=== PATIENT | male | born 1940 ===

== ENCOUNTER 2017-09-27 16:30 | Observation (INO) | payer MEDICARE ==
--- NOTE | 2017-09-27 17:13 | ED PDOC ---
HPI:STROKE - Time Time: 17:10 - Historian Historian: Patient, Family - Chief Complaint Chief Complaint: Numbness, Vision loss - Onset Date: 09/22/17 Time: 15:00 - Timing Timing: Improved - TPA Positive for Contraindication: Yes Reason tPA is not being Administered: onset Monday and out of window - Notes: Notes:: Pt. with right eye blurriness and left arm numbness and weakness that lasted for 15 min. Started suddenly. gave asa and he started getting better. Pt. arm got back to normal but eye is still a little bit blurry. Today they went to the database dba and he said to go to the ER. Pt. has left leg numbness for 8 years and weakness in it after a stroke 8 years ago. No chest pain, dyspnea, dizziness, headaches, abd pain. NIHSS Stroke Scale - Date/Time Evaluation Performed Date Performed: 09/27/17 Time Performed: 17:13 When Was NIHSS Performed: Baseline - How Severe is the Stroke Level of Consciousness: 0=Alert LOC to Questions: 0=Both comments correct LOC to commands: 0=Obeys both correctly Best Gaze: 0=Normal Visual: 0=No visual loss Facial: 0=Normal Motor Arm - Left: 0=No drift Motor Arm - Right: 0=No drift Motor Leg - Left: 0=No drift Motor Leg - Right: 0=No drift Limb Ataxia: 0=Absent Sensory: 0=Normal Best Language: 0=No aphasia Dysarthia: 0=Normal articulation Extinction & Inattention (Neglect): 0=Normal, no object Score: 0 rTPA Inclusion/Exclusion - Refusal of Treatment Patient Refused Treatment: No - Inclusion Criteria for Altepase Patient is 18 years or Older: Yes The Clinical Diagnosis of Ischemic Stroke That is Causing a Potentially Disabling Neurological Deficit: No Time of Onset is Well Established to be Less Than 270 Minute Before Treatment Would Begin: No Risk/Benefit Discussed With Patient/Family Member Present: No Past Medical History Reviewed: Historical Data, Nursing Documentation, Vital Signs Vital Signs: Last Vital Signs Temp 97.8 F 09/27/17 16:37 Pulse 65 09/27/17 16:37 Resp 16 09/27/17 16:37 BP 136/84 09/27/17 16:37 Pulse Ox 98 09/27/17 16:37 - Medical History PMH: CVA (leg leg numb and weak since that 8 years ago), HTN, Hyperlipidemia Denies: Chronic Kidney Disease - Family History Family History: States: Unknown Family Hx - Living Arrangements Living Arrangements: With Family - Social History Current smoker - smoking cessation education provided: No Alcohol: None Drugs: Denies - Home Medications Home Medications: Ambulatory Orders Medication Instructions Recorded Azelastine HCl [Azelastine HCl] 1 drop EACHEYE BID 09/27/17 Fluticasone/Vilanterol [Breo 1 puff IH DAILY 09/27/17 Ellipta 200-25 Mcg INH] Ibuprofen [Motrin Tab] 800 mg PO BID PRN 09/27/17 Icosapent Ethyl [Vascepa] 2 gm PO BID 09/27/17 Memantine HCl [Namenda Xr] 28 mg PO DAILY 09/27/17 Nebivolol [Bystolic] 20 mg PO DAILY 09/27/17 Sacubitril/Valsartan [Entresto 97 1 tab PO Q12H 09/27/17 mg-103 mg Tablet] Tamsulosin [Flomax] 0.4 mg PO DAILY 09/27/17 amLODIPine [Norvasc] 10 mg PO DAILY 09/27/17 - Allergies Allergies/Adverse Reactions: Allergies Allergy/AdvReac Type Severity Reaction Status Date / Time Penicillins Allergy RASH Verified 09/27/17 16:36 Review of Systems ROS Statement: Except As Marked, All Systems Reviewed And Found Negative Constitutional: Positive for: Weakness Eyes: Positive for: Vision Change Neurological: Positive for: Weakness, Numbness Physical Exam - Reviewed Nursing Documentation Reviewed: Yes Vital Signs Reviewed: Yes - Physical Exam Appears: Positive for: Non-toxic, No Acute Distress Head Exam: Positive for: ATRAUMATIC, NORMAL INSPECTION, NORMOCEPHALIC Skin: Positive for: Normal Color, Warm, DRY Eye Exam: Positive for: Normal appearance, EOMI, PERRL. Negative for: Nystagmus , Periorbital swelling, Periorbital tenderness ENT: Positive for: Normal ENT Inspection. Negative for: Nasal Congestion Neck: Positive for: Normal, Painless ROM, Supple Cardiovascular/Chest: Positive for: Regular Rate, Rhythm Respiratory: Positive for: CNT, Normal Breath Sounds Gastrointestinal/Abdominal: Positive for: Normal Exam, Bowel Sounds, Soft Back: Positive for: Normal Inspection. Negative for: L CVA Tenderness, R CVA Tenderness Extremity: Positive for: Normal ROM. 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 Negative for: Aphasia, Facial Droop - Laboratory Results Result Diagrams: 09/27/17 17:40 09/27/17 17:40 Interpretation Of Abn Labs: 1.7 cr - ECG ECG: Positive for: Interpreted By Me, Viewed By Me ECG Rhythm: Positive for: Normal QRS, Sinus Rhythm, Nonspecific Changes O2 Sat by Pulse Oximetry: 98 Pulse Ox Interpretation: Normal - Radiology X-Ray: Interpreted by Me, Viewed By Me X-Ray Interpretation: No Acute Disease - CT Scan/US head Other Rad Studies (CT/US): Read By Radiologist Other Rad Interpretation: old infarcts - Progress ED Course And Treament: 1935: Stable. Spoke with Dr. Carreon. Will admit and give further orders when pt. reaches floor. Pt. feeling better. 1939: Stable. Spoke with Dr. Gusman. Will consult. Not a thrombolytic candidate. Disposition - Clinical Impression Clinical Impression: TIA (transient ischemic attack) - Patient ED Disposition Is Patient to be Admitted: Yes Counseled Patient/Family Regarding: Studies Performed, Diagnosis - Disposition Disposition Time: 19:00 Condition: FAIR - Pt Status Changed To: Hospital Disposition Of: Observation - POA Present On Arrival: None
[2017-09-27 17:50] LABS: BASO % 0.5 % (0.0-2.0); EOS # 0.4 K/uL (0.0-0.7); EOS % 3.5 % (0.0-4.0); HEMATOCRIT 41.2 % (35.0-51.0); LYMPH # 3.9 K/uL (1.0-4.3); LYMPH % 38.5 % (20.0-40.0); MEAN CELL VOLUME 88.1 fl (80.0-94.0); MEAN CORPUSCULAR HEMOGLOBIN 28.8 pg (27.0-31.0); MEAN CORPUSCULAR HGB CONC 32.7 g/dL (33.0-37.0); MEAN PLATELET VOLUME 9.4 fl (7.2-11.7); MONO # 0.6 K/uL (0.0-0.8); MONO % 6.3 % (0.0-10.0); NEUT # 5.2 K/uL (1.8-7.0); NEUT % 51.2 % (50.0-75.0); NRBC % 0.1 % (0.0-0.0); RED CELL DISTRIBUTION WIDTH 14.4 % (11.5-14.5); WHITE BLOOD COUNT 10.2 K/uL (4.8-10.8)
[2017-09-27 17:56] LABS: ALB/GLOB RATIO 1.1 (1.0-2.1); ALKALINE PHOSPHATASE 77 U/L (38-126); ALT/SGPT 25 U/L (21-72); AST/SGOT 20 U/L (17-59); BILIRUBIN,TOTAL 0.4 mg/dl (0.2-1.3); BLOOD UREA NITROGEN 17 mg/dl (9-20); CALCIUM 8.7 mg/dL (8.4-10.2); CARBON DIOXIDE 28 mmol/L (22-30); CHLORIDE 108 mmol/L (98-107); CHOLESTEROL 208 mg/dL (0-199); GFR AFRICAN-AMERICAN 47; GLUCOSE,RANDOM 103 mg/dL (75-110); POTASSIUM 4.2 MMOL/L (3.6-5.0); SODIUM 148 mmol/l (132-148); TOTAL PROTEIN 8.1 G/DL (6.3-8.2)
--- NOTE | 2017-09-27 18:01 | CT ---
PROCEDURE: CT HEAD WITHOUT CONTRAST. HISTORY: cva eval COMPARISON: 09/06/2008 TECHNIQUE: Axial computed tomography images were obtained through the head/brain without intravenous contrast. Radiation dose: Total exam DLP = 82.82 mGy-cm. This CT exam was performed using one or more of the following dose reduction techniques: Automated exposure control, adjustment of the mA and/or kV according to patient size, and/or use of iterative reconstruction technique. FINDINGS: HEMORRHAGE: No intracranial hemorrhage. BRAIN: No mass effect or edema. No evidence of acute infarct. There is right occipital encephalomalacia and left medial occipital parietal encephalomalacia likely reflecting old ASSEMBLER FILTERS territory infarcts bilaterally. There is moderate periventricular white matter lucency with patchy foci of deep and subcortical lucency is well consistent with microvascular ischemic change. Old left basal ganglia lacunar infarcts. VENTRICLES: Unremarkable. No hydrocephalus. CALVARIUM: Unremarkable. PARANASAL SINUSES: Mild chronic pansinusitis MASTOID AIR CELLS: Unremarkable as visualized. No inflammatory changes. OTHER FINDINGS: None. IMPRESSION: No intracranial mass, hemorrhage or evidence of acute infarct. Small old bilateral ASSEMBLER FILTER[employer] territory infarcts. Chronic white matter ischemic change. Small old left basal ganglia lacunar infarcts.
[2017-09-27 18:02] LABS: PARTIAL THROMBOPLASTIN TIME 31.2 Seconds (25.6-37.1)
[2017-09-27] MEDS: Sodium Chloride 0.9% 1,000 ML IV SCH ×2 (18:04→19:21)
[2017-09-27] MEDS ORDERED: SACUBITRIL PO SCH (23:45)
[2017-09-27] MEDS ORDERED: VALSARTAN PO SCH (23:45)
[2017-09-28 00:23] VITALS: RESP 18
--- NOTE | 2017-09-28 03:43 | CP.PCM.CON ---
History of Present Illness - History of Present Illness History of Present Illness: Pt. with right eye blurriness and left arm numbness and weakness that lasted for 15 min. Started suddenly. gave asa and he started getting better. Pt. arm got back to normal but eye is still a little bit blurry. 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 Pt. has left leg numbness for 8 years and weakness in it after a stroke 8 years ago. No chest pain, dyspnea, dizziness, headaches, abd pain. NIHSS Stroke Scale - Date/Time Evaluation Performed Date Performed: 09/27/17 Time Performed: 17:13 When Was NIHSS Performed: Baseline - How Severe is the Stroke Level of Consciousness: 0=Alert LOC to Questions: 0=Both comments correct LOC to commands: 0=Obeys both correctly Best Gaze: 0=Normal Visual: 0=No visual loss Facial: 0=Normal Motor Arm - Left: 0=No drift Motor Arm - Right: 0=No drift Motor Leg - Left: 0=No drift Motor Leg - Right: 0=No drift Limb Ataxia: 0=Absent Sensory: 0=Normal Best Language: 0=No aphasia Dysarthia: 0=Normal articulation Extinction & Inattention (Neglect): 0=Normal, no object Score 0 Past Medical History Reviewed: Historical Data, Nursing Documentation, Vital Signs Vital Signs: Last Vital Signs Temp 97.8 F 09/27/17 16:37 Pulse 65 09/27/17 16:37 Resp 16 09/27/17 16:37 BP 136/84 09/27/17 16:37 Pulse Ox 98 09/27/17 16:37 - Medical History PMH: CVA (leg leg numb and weak since that 8 years ago), HTN, Hyperlipidemia, very high Triglycerides Denies: Chronic Kidney Disease, - Family History Family History: States: Unknown Family Hx - Living Arrangements Living Arrangements: With Family - Social History Current smoker - smoking cessation education provided: No Alcohol: None Drugs: Denies - Home Medications Home Medications: Ambulatory Orders Medication Instructions Recorded Azelastine HCl [Azelastine HCl] 1 drop EACHEYE BID 09/27/17 Fluticasone/Vilanterol [Breo 1 puff IH DAILY 09/27/17 Ellipta 200-25 Mcg INH] Ibuprofen [Motrin Tab] 800 mg PO BID PRN 09/27/17 Icosapent Ethyl [Vascepa] 2 gm PO BID 09/27/17 Memantine HCl [Namenda Xr] 28 mg PO DAILY 09/27/17 Nebivolol [Bystolic] 20 mg PO DAILY 09/27/17 Sacubitril/Valsartan [Entresto 97 1 tab PO Q12H 09/27/17 mg-103 mg Tablet] Tamsulosin [Flomax] 0.4 mg PO DAILY 09/27/17 amLODIPine [Norvasc] 10 mg PO DAILY 09/27/17 - Allergies Allergies/Adverse Reactions: Allergies Allergy/AdvReac Type Severity Reaction Status Date / Time Penicillins Allergy RASH Verified 09/27/17 16:36 Review of Systems ROS Statement: Except As Marked, All Systems Reviewed And Found Negative Constitutional: Positive for: Weakness Eyes: Positive for: Vision Change Neurological: Positive for: Weakness, Numbness Physical Exam - Reviewed Nursing Documentation Reviewed: Yes Vital Signs Reviewed: Yes - Physical Exam Appears: Positive for: Non-toxic, No Acute Distress Head Exam: Positive for: ATRAUMATIC, NORMAL INSPECTION, NORMOCEPHALIC Skin: Positive for: Normal Color, Warm, DRY Eye Exam: Positive for: Normal appearance, EOMI, PERRL. Negative for: Nystagmus , Periorbital swelling, Periorbital tenderness ENT: Positive for: Normal ENT Inspection. Negative for: Nasal Congestion Neck: Positive for: Normal, Painless ROM, Supple Cardiovascular/Chest: Positive for: Regular Rate, Rhythm Respiratory: Positive for: CNT, Normal Breath Sounds Gastrointestinal/Abdominal: Positive for: Normal Exam, Bowel Sounds, Soft Back: Positive for: Normal Inspection. Negative for: L CVA Tenderness, R CVA Tenderness Extremity: Positive for: Normal ROM. 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 Negative for: Aphasia, Facial Droop ECG: Positive for: Interpreted By Me, Viewed By Me ECG Rhythm: Positive for: Normal QRS, Sinus Rhythm, Nonspecific Changes O2 Sat by Pulse Oximetry: 98 Pulse Ox Interpretation: Normal - Radiology X-Ray: Interpreted by Me, Viewed By Me X-Ray Interpretation: No Acute Disease - CT Scan/US head Other Rad Studies (CT/US): Read By Radiologist Other Rad Interpretation: old infarcts Disposition - Clinical Impression Clinical Impression: TIA (transient ischemic attack) - Patient ED Disposition Is Patient to be Admitted: Yes Counseled Patient/Family Regarding: Studies Performed, Diagnosis - Disposition Disposition Time: 19:00 Condition: FAIR - Pt Status Changed To: Hospital Disposition Of: Observation - POA Present On Arrival: None Past Patient History - Past Medical History & Family History Past Medical History?: Yes - Past Social History Smoking Status: Never Smoked - CARDIAC Hx Hypertension: Yes - PULMONARY Hx Respiratory Disorders: No - NEUROLOGICAL Hx Neurological Disorder: Yes HX Cerebrovascular Accident: Yes - HEENT Hx HEENT Problems: No - RENAL Hx Chronic Kidney Disease: No - ENDOCRINE/METABOLIC Hx Endocrine Disorders: No - HEMATOLOGICAL/ONCOLOGICAL Hx Blood Disorders: No - INTEGUMENTARY Hx Dermatological Problems: No - MUSCULOSKELETAL/RHEUMATOLOGICAL Hx Falls: No - GASTROINTESTINAL Hx Gastrointestinal Disorders: No - GENITOURINARY/GYNECOLOGICAL Hx Genitourinary Disorders: No - PSYCHIATRIC Hx Substance Use: No - SURGICAL HISTORY Hx Surgeries: No - ANESTHESIA Hx Anesthesia: No Meds Allergies/Adverse Reactions: Allergies Allergy/AdvReac Type Severity Reaction Status Date / Time Penicillins Allergy RASH Verified 09/27/17 16:36 - Medications Medications: Current Medications Amlodipine Besylate (Norvasc) 10 mg PO DAILY [facility] Enoxaparin Sodium (Lovenox) 30 mg SC DAILY [facility] PRN Reason: Protocol Home Med (Azelastine Hcl [Azelastine Hcl]) 1 drop EACHEYE BID [facility] Home Med (Icosapent Ethyl [Vascepa]) 2 gm PO BID [facility] Home Med (Sacubitril/Valsartan [Entresto 97 Mg-103 Mg Tablet]) 1 tab PO Q12H [facility] Sodium Chloride (Sodium Chloride 0.9%) 1,000 mls @ 500 mls/hr IV .Q2H [facility] Last Admin: 09/27/17 19:21 Dose: Not Given Ibuprofen (Motrin Tab) 800 mg PO BID PRN PRN Reason: Pain, moderate (4-7) Influenza Virus Vaccine (Afluria (Pf)(18yr & Older)) 0.5 ml IM .ONCE ONE Stop: 09/28/17 07:01 Memantine (Namenda) 10 mg PO BID [facility] Metoprolol Tartrate (Lopressor) 100 mg PO Q12 [facility] Fluticasone/Salmeterol (Advair Diskus 250/50) 1 puff IH Q12 [facility] Tamsulosin HCl (Flomax) 0.4 mg PO DAILY [facility] Physical Exam - Neurological Exam Additional comments: Mental Status: Awake, Alert, Oriented X3 Fluent coherent speech only in Salvadorean Normal memory very pleasant to talk to He was complaining about Sensory changes in the Left UE and mild weakness in the Left LE since his old CVA on admission: Now He is almost back to his baseline Cranial Nerves II to XII: No deficits Motor: Power; Mild left LE weakness 4/5, Unable to raise the left leg at the level of the right leg normal Tone DTR 0 to 1/4 Toes are down going on both sides Sensory: No Deficits Cerebellar: Normal FNT Unable to tandem walk properly due to his old Left LE weakness Stature and Gait: mild Left hemiplegic gait Results - Vital Signs Recent Vital Signs: Last Vital Signs Temp 98.2 F 09/28/17 00:22 Pulse 59 L 09/28/17 01:46 Resp 18 09/28/17 01:46 BP 127/64 09/28/17 00:22 Pulse Ox 100 09/28/17 00:22 - Labs Result Diagrams: 09/27/17 17:40 09/27/17 17:40 Labs: Laboratory Results - last 24 hr 09/27/17 09/27/17 09/27/17 17:40 17:40 17:40 WBC 10.2 RBC 4.68 Hgb 13.5 Hct 41.2 MCV 88.1 MCH 28.8 MCHC 32.7 L RDW 14.4 Plt Count 314 MPV 9.4 Neut % (Auto) 51.2 Lymph % (Auto) 38.5 [place] % (Auto) 6.3 Eos % (Auto) 3.5 Baso % (Auto) 0.5 Neut # 5.2 Lymph # 3.9 [place] # 0.6 Eos # 0.4 Baso # 0.0 PT INR APTT Sodium 148 Potassium 4.2 Chloride 108 H Carbon Dioxide 28 Anion Gap 16 BUN 17 Creatinine 1.7 H Est GFR ( Amer) 47 Est GFR (Non-Af Amer) 39 Random Glucose 103 Hemoglobin A1c 6.3 Calcium 8.7 Total Bilirubin 0.4 AST 20 ALT 25 Alkaline Phosphatase 77 Troponin I < 0.0120 Total Protein 8.1 Albumin 4.3 Globulin 3.8 Albumin/Globulin Ratio 1.1 Triglycerides 395 H Cholesterol 208 H LDL Cholesterol Direct 104 HDL Cholesterol 26 L Blood Type Antibody Screen BBK History Checked 09/27/17 09/27/17 17:40 17:40 WBC RBC Hgb Hct MCV MCH MCHC RDW Plt Count MPV Neut % (Auto) Lymph % (Auto) [place] % (Auto) Eos % (Auto) Baso % (Auto) Neut # Lymph # [place] # Eos # Baso # PT 11.4 INR 1.0 APTT 31.2 Sodium Potassium Chloride Carbon Dioxide Anion Gap BUN Creatinine Est GFR ( Amer) Est GFR (Non-Af Amer) Random Glucose Hemoglobin A1c Calcium Total Bilirubin AST ALT Alkaline Phosphatase Troponin I Total Protein Albumin Globulin Albumin/Globulin Ratio Triglycerides Cholesterol LDL Cholesterol Direct HDL Cholesterol Blood Type O POSITIVE Antibody Screen Negative BBK History Checked Patient has bt Assessment & Plan (1) Seizures Assessment and Plan: R/O Seizures due to his old CVA that might represent a Focus for Seizures Status: Acute (2) TIA (transient ischemic attack) Status: Acute (3) BPH (benign prostatic hyperplasia) Assessment and Plan: Might cause Urinary problems, Malignancy is to be ruled out Status: Acute (4) High triglycerides Assessment and Plan: Is a major factor in CVA and in Cardiac attacks and in PVD and Atherosclerosis and dementia. Status: Acute
[2017-09-28 06:35] LABS: URIC ACID 9.7 mg/Dl (3.5-8.5)
[2017-09-28 06:58] LABS: THYROID STIMULATING HORMONE 3.86 mIU/ML (0.46-4.68)
[2017-09-28] MEDS ORDERED: Influenza Vaccine 18yr & older 0.5 ML/45 MCG SYR IM ONE (07:00)
[2017-09-28 08:22] VITALS: O2SAT 99
[2017-09-28] MEDS ORDERED: Fluticasone-Salmeterol 250-50mcg Diskus IH SCH (09:00)
[2017-09-28] MEDS ORDERED: Patient's Own Med (Azelastine Hcl [Azelastine Hcl] 1 DROP) EACHEYE SCH (09:00)
[2017-09-28] MEDS ORDERED: Patient's Own Med (Fluticasone/Vilanterol [Breo Ellipta 200-25 Mcg Inh] 1 PUFF) IH SCH (09:00)
[2017-09-28] MEDS ORDERED: Enoxaparin 30 mg Syringe SC SCH (09:00)
[2017-09-28] MEDS ORDERED: Sodium Chloride 0.9% 1,000 ML IV SCH (09:53)
--- NOTE | 2017-09-28 10:01 | RAD ---
HISTORY: cva eval COMPARISON: 06/24/2014 FINDINGS: LUNGS: No active pulmonary disease. PLEURA: No significant pleural effusion identified, no pneumothorax apparent. There is stable right paratracheal density probably related to great vessels. CARDIOVASCULAR: Heart is enlarged. Aorta is unchanged. OSSEOUS STRUCTURES: No significant abnormalities. VISUALIZED UPPER ABDOMEN: Normal. OTHER FINDINGS: None. IMPRESSION: No active disease.
--- NOTE | 2017-09-28 11:00 | CARD ---
APPROVED REPORT EKG Measurement Heart [id number] <Conclusion> Sinus bradycardia with premature atrial complexes Nonspecific ST and T wave abnormality Abnormal ECG
--- NOTE | 2017-09-28 12:04 | CP.PCM.HP ---
History of Present Illness - History of Present Illness History of Present Illness: Patient seen and examined with Dr. Carreon 77 year old male with hx of CVA in 2007 presented with complaints of blurry vision and left arm numbness. No other complaints. Feeling well this morning. Symptoms have resolved. He does not have any other complaints this morning. Family is bedside. No chest pain, dyspnea, dizziness, headaches, abd pain, nausea or vomiting. PMH: HTN, CHF, CVA Medications: reviewed Allergies: penicillins. Present on Admission - Present on Admission Any Indicators Present on Admission: No Past Patient History - Past Medical History & Family History Past Medical History?: Yes - Past Social History Smoking Status: Never Smoked - CARDIAC Hx Hypertension: Yes - PULMONARY Hx Respiratory Disorders: No - NEUROLOGICAL Hx Neurological Disorder: Yes HX Cerebrovascular Accident: Yes - HEENT Hx HEENT Problems: No - RENAL Hx Chronic Kidney Disease: No - ENDOCRINE/METABOLIC Hx Endocrine Disorders: No - HEMATOLOGICAL/ONCOLOGICAL Hx Blood Disorders: No - INTEGUMENTARY Hx Dermatological Problems: No - MUSCULOSKELETAL/RHEUMATOLOGICAL Hx Falls: No - GASTROINTESTINAL Hx Gastrointestinal Disorders: No - GENITOURINARY/GYNECOLOGICAL Hx Genitourinary Disorders: No - PSYCHIATRIC Hx Substance Use: No - SURGICAL HISTORY Hx Surgeries: No - ANESTHESIA Hx Anesthesia: No Meds Home Medications: Home Medication List Medication Instructions Recorded Confirmed Type Fluticasone/Salmeterol 250/50 1 puff IH Q12 puff 09/28/17 Rx [Advair Diskus 250/50] Memantine [Namenda] 10 mg PO BID tab 09/28/17 Rx Metoprolol Tartrate [Lopressor] 100 mg PO Q12 tab 09/28/17 Rx Allergies/Adverse Reactions: Allergies Allergy/AdvReac Type Severity Reaction Status Date / Time Penicillins Allergy RASH Verified 09/27/17 16:36 Physical Exam - Constitutional Appears: Well, No Acute Distress - Head Exam Head Exam: ATRAUMATIC, NORMAL INSPECTION, NORMOCEPHALIC - Eye Exam Eye Exam: EOMI, Normal appearance, PERRL - ENT Exam ENT Exam: Mucous Membranes Moist, Normal Exam - Respiratory Exam Respiratory Exam: Clear to Auscultation Bilateral, NORMAL BREATHING PATTERN - Cardiovascular Exam Cardiovascular Exam: REGULAR RHYTHM, +S1 - GI/Abdominal Exam GI & Abdominal Exam: Soft. absent: Distended, Guarding, Mass, Tenderness - Extremities Exam Extremities exam: Positive for: normal inspection. Negative for: pedal edema - Neurological Exam Neurological exam: Alert, CN II-XII Intact, Motor Sensory Deficit (lower extremity, not upper extremity) - Psychiatric Exam Psychiatric exam: Normal Affect, Normal Mood - Skin Skin Exam: Dry, Intact, Normal Color, Warm Results - Vital Signs Recent Vital Signs: Last Vital Signs Temp 97.7 F 09/28/17 08:21 Pulse 55 L 09/28/17 09:08 Resp 18 09/28/17 08:21 BP 152/80 H 09/28/17 09:08 Pulse Ox 99 09/28/17 08:21 - Labs Result Diagrams: 09/27/17 17:40 09/27/17 17:40 Labs: Laboratory Results - last 24 hr 09/27/17 09/27/17 09/27/17 16:55 17:40 17:40 WBC 10.2 RBC 4.68 Hgb 13.5 Hct 41.2 MCV 88.1 MCH 28.8 MCHC 32.7 L RDW 14.4 Plt Count 314 MPV 9.4 Neut % (Auto) 51.2 Lymph % (Auto) 38.5 [place] % (Auto) 6.3 Eos % (Auto) 3.5 Baso % (Auto) 0.5 Neut # 5.2 Lymph # 3.9 [place] # 0.6 Eos # 0.4 Baso # 0.0 ESR PT INR APTT Sodium 148 Potassium 4.2 Chloride 108 H Carbon Dioxide 28 Anion Gap 16 BUN 17 Creatinine 1.7 H Est GFR ( Amer) 47 Est GFR (Non-Af Amer) 39 POC Glucose (mg/dL) 137 H Random Glucose 103 Hemoglobin A1c Uric Acid Calcium 8.7 Total Bilirubin 0.4 AST 20 ALT 25 Alkaline Phosphatase 77 Troponin I < 0.0120 C-React Prot High Sens Total Protein 8.1 Albumin 4.3 Globulin 3.8 Albumin/Globulin Ratio 1.1 Triglycerides 395 H Cholesterol 208 H LDL Cholesterol Direct 104 HDL Cholesterol 26 L Prostate Specific Ag TSH 3rd Generation Blood Type Antibody Screen BBK History Checked 09/27/17 09/27/17 09/27/17 17:40 17:40 17:40 WBC RBC Hgb Hct MCV MCH MCHC RDW Plt Count MPV Neut % (Auto) Lymph % (Auto) [place] % (Auto) Eos % (Auto) Baso % (Auto) Neut # Lymph # [place] # Eos # Baso # ESR PT 11.4 INR 1.0 APTT 31.2 Sodium Potassium Chloride Carbon Dioxide Anion Gap BUN Creatinine Est GFR ( Amer) Est GFR (Non-Af Amer) POC Glucose (mg/dL) Random Glucose Hemoglobin A1c 6.3 Uric Acid Calcium Total Bilirubin AST ALT Alkaline Phosphatase Troponin I C-React Prot High Sens Total Protein Albumin Globulin Albumin/Globulin Ratio Triglycerides Cholesterol LDL Cholesterol Direct HDL Cholesterol Prostate Specific Ag TSH 3rd Generation Blood Type O POSITIVE Antibody Screen Negative BBK History Checked Patient has bt 09/28/17 09/28/17 09/28/17 05:20 05:20 05:20 WBC RBC Hgb Hct MCV MCH MCHC RDW Plt Count MPV Neut % (Auto) Lymph % (Auto) [place] % (Auto) Eos % (Auto) Baso % (Auto) Neut # Lymph # [place] # Eos # Baso # ESR 23 H PT INR APTT Sodium Potassium Chloride Carbon Dioxide Anion Gap BUN Creatinine Est GFR ( Amer) Est GFR (Non-Af Amer) POC Glucose (mg/dL) Random Glucose Hemoglobin A1c Uric Acid 9.7 H Calcium Total Bilirubin AST ALT Alkaline Phosphatase Troponin I C-React Prot High Sens Total Protein Albumin Globulin Albumin/Globulin Ratio Triglycerides Cholesterol LDL Cholesterol Direct HDL Cholesterol Prostate Specific Ag 0.168 TSH 3rd Generation 3.86 Blood Type Antibody Screen BBK History Checked 09/28/17 09/28/17 05:20 05:20 WBC RBC Hgb Hct MCV MCH MCHC RDW Plt Count MPV Neut % (Auto) Lymph % (Auto) [place] % (Auto) Eos % (Auto) Baso % (Auto) Neut # Lymph # [place] # Eos # Baso # ESR PT INR APTT Sodium Potassium Chloride Carbon Dioxide Anion Gap BUN Creatinine Est GFR ( Amer) Est GFR (Non-Af Amer) POC Glucose (mg/dL) Random Glucose Hemoglobin A1c 6.4 Uric Acid Calcium Total Bilirubin AST ALT Alkaline Phosphatase Troponin I C-React Prot High Sens 12.98 H Total Protein Albumin Globulin Albumin/Globulin Ratio Triglycerides Cholesterol LDL Cholesterol Direct HDL Cholesterol Prostate Specific Ag TSH 3rd Generation Blood Type Antibody Screen BBK History Checked Assessment & Plan (1) TIA (transient ischemic attack) Assessment and Plan: 77 year old male presented with blurry vision, left arm numbness that has resolved. Patient cleared by neuro for discharge with close follow up outpatient. Needs MRI to be done outpatient Discussed with patient and family Start ASA. Status: Acute (2) CHF (congestive heart failure) Assessment and Plan: as per hx, medications resumed, nonformulary type of chf unknown Status: Chronic (3) HTN (hypertension) Status: Chronic (4) High triglycerides Assessment and Plan: pt to follow up outpatient with pcp Status: Chronic
[2017-09-28 12:36] VITALS: BP 152/80; PULSE 55; TEMP 97.7
== END 2017-09-28 11:30 | disposition home or self-care (01) ==
LOC: H.ER 16:30 → H.ERHOLD 19:34 → H.TEL 21:25
PROVIDERS: ADMIT Family Medicine; ATTEND Family Medicine
DX: G45.9 Transient cerebral ischemic attack, unspecified (principal); E78.1 Pure hyperglyceridemia; E78.5 Hyperlipidemia, unspecified; F03.90 Unspecified dementia, unspecified severity, without behavioral disturbance, psychotic disturbance, mood disturbance, and anxiety; I73.9 Peripheral vascular disease, unspecified; H54.7 Unspecified visual loss; I11.0 Hypertensive heart disease with heart failure; I50.9 Heart failure, unspecified; N40.0 Benign prostatic hyperplasia without lower urinary tract symptoms; Z79.899 Other long term (current) drug therapy; H53.8 Other visual disturbances; I69.354 Hemiplegia and hemiparesis following cerebral infarction affecting left non-dominant side; Z23 Encounter for immunization
CPT/HCPCS: 36415; 70450; 71010; 80053; 80061; 82948; 83036; 83520; 84153; 84443; 84484; 84550; 85025; 85610; 85651; 85730; 86039; 86140; 86850; 86900; 93005; 99285; G0008; G0378; J1650; J7040; Q2035

== ENCOUNTER 2019-01-15 16:37 | Inpatient (IN) | payer MEDICARE, MEDICAID ==
--- NOTE | 2019-01-15 17:50 | RAD ---
Date of service: 01/15/2019 HISTORY: possible admission COMPARISON: 03/07/2018 FINDINGS: LUNGS: No active pulmonary disease. PLEURA: No significant pleural effusion identified, no pneumothorax apparent. CARDIOVASCULAR: No atherosclerotic calcification present No radiographic findings to suggest acute or significant cardiovascular disease. OSSEOUS STRUCTURES: No significant abnormalities. VISUALIZED UPPER ABDOMEN: Normal. OTHER FINDINGS: None. IMPRESSION: No active disease. No significant interval change compared to the prior examination(s).
[2019-01-15 18:00] LABS: BASO % 0.3 % (0.0-2.0); EOS # 0.3 K/uL (0.0-0.7); EOS % 2.4 % (0.0-4.0); HEMOGLOBIN 9.7 g/dL (12.0-18.0); LYMPH # 3.3 K/uL (1.0-4.3); LYMPH % 26.6 % (20.0-40.0); MEAN CELL VOLUME 76.9 fl (80.0-94.0); MEAN CORPUSCULAR HEMOGLOBIN 24.6 pg (27.0-31.0); MEAN CORPUSCULAR HGB CONC 31.9 g/dL (33.0-37.0); MEAN PLATELET VOLUME 8.6 fl (7.2-11.7); MONO # 0.9 K/uL (0.0-0.8); MONO % 7.4 % (0.0-10.0); NEUT # 7.8 K/uL (1.8-7.0); NEUT % 63.3 % (50.0-75.0); RBC 3.93 Mil/uL (4.40-5.90); RED CELL DISTRIBUTION WIDTH 16.8 % (11.5-14.5); WHITE BLOOD COUNT 12.3 K/uL (4.8-10.8)
[2019-01-15 18:05] LABS: INR 1.2; PROTHROMBIN TIME 13.8 Seconds (9.8-13.1)
[2019-01-15 18:08] LABS: PARTIAL THROMBOPLASTIN TIME 29.5 Seconds (25.6-37.1)
[2019-01-15 18:31] LABS: ALB/GLOB RATIO 0.9 (1.0-2.1); ALBUMIN 3.4 g/dL (3.5-5.0); CALCIUM 8.6 mg/dL (8.4-10.2)
[2019-01-15] MEDS ORDERED: Sodium Chloride 0.9% 1,000 ML IV STA (18:33)
--- NOTE | 2019-01-15 18:41 | ED PDOC ---
HPI: Abdomen Time Seen by Provider: 01/15/19 16:56 Chief Complaint (Nursing): GI Problem Chief Complaint (Provider): GI Problem History Per: Patient, Family History/Exam Limitations: no limitations Onset/Duration Of Symptoms: Days (x 1 week) Current Symptoms Are (Timing): Still Present Location Of Pain/Discomfort: RUQ, RLQ Quality Of Discomfort: "Pain" Associated Symptoms: Diarrhea, Other (distention and hematochezia). denies: Nausea, Vomiting Additional Complaint(s): 78 year old male with a history of bladder CA presents to the ED with 1 week of worsening right sided abdominal pain, distention and diarrhea as well as 2 days of rectal bleeding. Family members are present at bedside and are unable to quantify how much blood the patient excreted, but report it was "a lot". Patient's son estimates a 10-15 pound weight loss in the last week. He contiues to have right sided pain in the ED. Denies nausea, vomiting, fever and dizziness. PMD: Dr. Nam Sayed urologist: Dr. Chua Past Medical History Reviewed: Historical Data, Nursing Documentation, Vital Signs Vital Signs: Last Vital Signs Temp 98 F 01/15/19 16:46 Pulse 59 L 01/15/19 16:46 Resp 15 01/15/19 16:46 BP 117/57 L 01/15/19 16:46 Pulse Ox 99 01/15/19 16:46 - Medical History PMH: CVA (leg leg numb and weak since that 8 years ago), HTN, Hyperlipidemia, Malignancy (bladder cancer), TIA - Family History Family History: States: Unknown Family Hx - Home Medications Home Medications: Ambulatory Orders Medication Instructions Recorded Azelastine HCl 1 drop EACHEYE BID 09/27/17 Ibuprofen [Motrin Tab] 800 mg PO DAILY 09/27/17 Icosapent Ethyl [Vascepa] 2 gm PO BID 09/27/17 Memantine HCl [Namenda Xr] 28 mg PO DAILY 09/27/17 Nebivolol [Bystolic] 10 mg PO DAILY 09/27/17 Tamsulosin [Flomax] 0.4 mg PO DAILY 09/27/17 amLODIPine [Norvasc] 10 mg PO DAILY 09/27/17 Febuxostat [Uloric] 40 mg PO DAILY 08/13/18 Losartan Potassium [Cozaar] 100 mg PO DAILY 08/13/18 SITagliptin [Januvia] 25 mg PO DAILY 08/13/18 Budesonide 2 spray NS DAILY 12/19/18 Fluticasone/Salmeterol 250/50 1 puff IH DAILY 12/19/18 [Advair Diskus 250/50] Loratadine [Claritin] 10 mg PO DAILY 12/19/18 Mesalamine 4 gm RC HS 12/19/18 - Allergies Allergies/Adverse Reactions: Allergies Allergy/AdvReac Type Severity Reaction Status Date / Time Penicillins Allergy RASH Verified 01/15/19 16:41 Review of Systems ROS Statement: Except As Marked, All Systems Reviewed And Found Negative Constitutional: Positive for: Weight loss (10-15 pounds over the last week). Negative for: Fever Gastrointestinal: Positive for: Abdominal Pain (right sided), Diarrhea, Hematochezia, Other (abdominal distention). Negative for: Nausea, Vomiting Neurological: Negative for: Dizziness Physical Exam - Reviewed Nursing Documentation Reviewed: Yes Vital Signs Reviewed: Yes - Physical Exam Appears: Positive for: No Acute Distress Head Exam: Positive for: ATRAUMATIC Skin: Positive for: Normal Color, Warm, Dry. Negative for: Rash Eye Exam: Positive for: EOMI, Normal appearance, PERRL Neck: Positive for: Normal, Painless ROM, Supple Cardiovascular/Chest: Positive for: Regular Rate, Rhythm. Negative for: Murmur Respiratory: Positive for: Normal Breath Sounds. Negative for: Respiratory Distress Gastrointestinal/Abdominal: Positive for: Soft, Tenderness (tenderness to right upper and lower quadrants), Distended Rectal: Positive for: Deferred (as per patient's request) Extremity: Positive for: Normal ROM (upper and lower extremities). Negative for: Deformity, Swelling Neurological/Psych: Positive for: Awake, Alert, Normal Tone. Negative for: Motor/Sensory Deficits - Laboratory Results Result Diagrams: 01/15/19 17:56 01/15/19 17:56 Lab Results: PT 13.8 Seconds (9.8-13.1) H 01/15/19 17:56 INR 1.2 01/15/19 17:56 APTT 29.5 Seconds (25.6-37.1) 01/15/19 17:56 Total Bilirubin 0.3 mg/dl (0.2-1.3) 01/15/19 17:56 AST 19 U/L (17-59) 01/15/19 17:56 ALT 13 U/L (21-72) L D 01/15/19 17:56 Alkaline Phosphatase 67 U/L (38-126) 01/15/19 17:56 Total Protein 7.3 G/DL (6.3-8.2) 01/15/19 17:56 Albumin 3.4 g/dL (3.5-5.0) L D 01/15/19 17:56 Globulin 3.8 gm/dL (2.2-3.9) 01/15/19 17:56 Albumin/Globulin Ratio 0.9 (1.0-2.1) L 01/15/19 17:56 - ECG O2 Sat by Pulse Oximetry: 99 (RA) Pulse Ox Interpretation: Normal Medical Decision Making Medical Decision Makin:57 MDM: workup for lower GI bleed Labs, chest x-ray and CT abdomen pelvis Consult with primary doctor; probable admission 18:52 Patient will be admitted [place] [facility] [place]. Case discussed with Dr. Calvert who will see patient tomorrow. Referred patient to Dr. Mathew who will accept admission. Scribe Attestation: Documented by Lucretia Nicole, acting as a scribe for Monique Dodson MD. Provider Scribe Attestation: All medical record entries made by the Scribe were at my direction and personally dictated by me. I have reviewed the chart and agree that the record accurately reflects my personal performance of the history, physical exam, medical decision making, and the department course for this patient. I have also personally directed, reviewed, and agree with the discharge instructions and disposition. Disposition - Clinical Impression Clinical Impression: Abdominal pain, GI bleed - Patient ED Disposition Is Patient to be Admitted: Yes - Disposition Disposition Time: 18:52 Condition: GUARDED Forms: [facility] (Samoan)
--- NOTE | 2019-01-16 07:29 | CP.PCM.HP ---
<Damian Soria - Last Filed: 01/16/19 10:46> History of Present Illness - History of Present Illness History of Present Illness: Kb: Miah [id number] This is 78 y/o male with PMH of Ulcerative colitis, HTN, Bladder Ca, Dementia, prediabetes and CVA in 2007 admitted to [facility] for evaluation and treatment of chronic bloody diarrhea and acute R abdominal pain with distension. Patient is a poor historian, no family at bedside present. Patient reports he has been having blood diarrhea, BRBPR since few months and worsening R abdominal pain/distension for couple of days. Denies any vomiting, chest pain, SOB, or dysuria. Patient reports weight loss in last few months. Doesn't know if he follows up with any GI doctor as outpatient. PMD: Dr. Nam Sayed urologist: Dr. Chua PMH: Ulcerative colitis, Hypotension, Bladder Ca, Dementia, prediabetes and CVA in 2007 PSH: Denies Allg: PNC SH: Denies alcohol, smoking or drug use SH: unknown Present on Admission - Present on Admission Any Indicators Present on Admission: No Past Patient History - Past Medical History & Family History Past Medical History?: Yes - Past Social History Smoking Status: Never Smoked - CARDIAC Hx Cardiac Disorders: Yes - NEUROLOGICAL Hx Neurological Disorder: Yes - HEENT Hx HEENT Problems: No - ENDOCRINE/METABOLIC Hx Endocrine Disorders: Yes Hx Diabetes Mellitus Type 2: Yes - HEMATOLOGICAL/ONCOLOGICAL Hx Blood Disorders: Yes Hx Cancer: Yes (BLADDER CANCER) - MUSCULOSKELETAL/RHEUMATOLOGICAL Hx Musculoskeletal Disorders: Yes Hx Gout: Yes - GASTROINTESTINAL Hx Gastrointestinal Disorders: Yes Hx Colitis: Yes Hx Gastroesophageal Reflux: Yes - GENITOURINARY/GYNECOLOGICAL Hx Genitourinary Disorders: Yes Hx Bladder Cancer: Yes Hx Hematuria: Yes Other/Comment: HX: URINARY FREQUENCY - PSYCHIATRIC Hx Psychophysiologic Disorder: No Hx Substance Use: No - SURGICAL HISTORY Hx Surgeries: Yes Other/Comment: HX: BLADDER CANCER TURBT. HX: NEPHROURETERECTOMY 2014. HX: CY STOSCOPY WITH BLADDER BIOPSY AND FULGURATION(08/20/18) - ANESTHESIA Hx Anesthesia: Yes Hx Anesthesia Reactions: No Hx Malignant Hyperthermia: No Meds Allergies/Adverse Reactions: Allergies Allergy/AdvReac Type Severity Reaction Status Date / Time Penicillins Allergy RASH Verified 01/15/19 16:41 Physical Exam - Constitutional Appears: No Acute Distress - Head Exam Head Exam: NORMAL INSPECTION - Eye Exam Eye Exam: EOMI, Normal appearance, PERRL Pupil Exam: NORMAL ACCOMODATION - ENT Exam ENT Exam: Mucous Membranes Moist - Neck Exam Neck exam: Positive for: Normal Inspection - Respiratory Exam Respiratory Exam: Clear to Auscultation Bilateral, NORMAL BREATHING PATTERN - Cardiovascular Exam Cardiovascular Exam: REGULAR RHYTHM, +S1, +S2 - GI/Abdominal Exam GI & Abdominal Exam: Distended, Normal Bowel Sounds, Soft. absent: Guarding, Rebound, Rigid, Tenderness - Rectal Exam Rectal Exam: Deferred - Extremities Exam Extremities exam: Positive for: normal inspection - Back Exam Back exam: NORMAL INSPECTION - Neurological Exam Neurological exam: Alert - Psychiatric Exam Psychiatric exam: Normal Affect - Skin Skin Exam: Normal Color Results - Vital Signs Recent Vital Signs: Last Vital Signs Temp 97.8 F 01/16/19 01:41 Pulse 54 L 01/16/19 01:41 Resp 20 01/16/19 01:41 BP 104/64 01/16/19 01:41 Pulse Ox 97 01/16/19 01:41 - Labs Result Diagrams: 01/16/19 08:12 01/16/19 07:32 Labs: Laboratory Results - last 24 hr 01/15/19 01/15/19 01/15/19 17:56 17:56 17:56 WBC 12.3 H RBC 3.93 L Hgb 9.7 L D Hct 30.2 L MCV 76.9 L D MCH 24.6 L MCHC 31.9 L RDW 16.8 H Plt Count 426 H D MPV 8.6 Neut % (Auto) 63.3 Lymph % (Auto) 26.6 [place] % (Auto) 7.4 Eos % (Auto) 2.4 Baso % (Auto) 0.3 Neut # (Auto) 7.8 H Lymph # (Auto) 3.3 [place] # (Auto) 0.9 H Eos # (Auto) 0.3 Baso # (Auto) 0.0 PT 13.8 H INR 1.2 APTT 29.5 Sodium 143 Potassium 3.7 Chloride 111 H Carbon Dioxide 23 Anion Gap 13 BUN 27 H Creatinine 2.2 H Est GFR ( Amer) 35 Est GFR (Non-Af Amer) 29 Random Glucose 105 Calcium 8.6 Total Bilirubin 0.3 AST 19 ALT 13 L D Alkaline Phosphatase 67 NT-Pro-B Natriuret Pep 1810 H Total Protein 7.3 Albumin 3.4 L D Globulin 3.8 Albumin/Globulin Ratio 0.9 L Stool Occult Blood Blood Type Antibody Screen BBK History Checked 01/15/19 01/15/19 17:56 23:46 WBC RBC Hgb Hct MCV MCH MCHC RDW Plt Count MPV Neut % (Auto) Lymph % (Auto) [place] % (Auto) Eos % (Auto) Baso % (Auto) Neut # (Auto) Lymph # (Auto) [place] # (Auto) Eos # (Auto) Baso # (Auto) PT INR APTT Sodium Potassium Chloride Carbon Dioxide Anion Gap BUN Creatinine Est GFR ( Amer) Est GFR (Non-Af Amer) Random Glucose Calcium Total Bilirubin AST ALT Alkaline Phosphatase NT-Pro-B Natriuret Pep Total Protein Albumin Globulin Albumin/Globulin Ratio Stool Occult Blood Positive H Blood Type O POSITIVE Antibody Screen Negative BBK History Checked Patient has bt Assessment & Plan - Assessment and Plan (Free Text) Assessment: A/P; 78 y/o male with PMH of Ulcerative colitis, HTN, Bladder Ca, Dementia, prediabetes and CVA in 2007 admitted to [facility] for evaluation and treatment of chronic bloody diarrhea and acute R abdominal pain with distension. Acute Anemia, 2/2 GI bleed - H/H: 9.7/30.2, non-tachycardia, stable - + FOBT - CT abdomen/Pelvis: Follow up official read - Consult GI, Dr. Calvert, f/u recommendations - NPO, C/w IVF - Follow up AM labs Ulcerative colitis - C/w home medications: as ordered JESUS - Likely due to dehaydration vs Bladder ca - C/w IVF - Monitor labs - Consider Nephrology - Avoid nephrotoxic drugs HTN/Arrhythmia - C/w Home medications as ordered Prediabetes - C/w home medications as ordered Bladder Ca - Urology consult, f/u recommendations - C/w Flomax DVT PPX - SCD for now due to bleeding Case discussed and patient seen with Dr. Mathew <Gatito Mathew - Last Filed: 01/17/19 11:38> Results - Vital Signs Recent Vital Signs: Last Vital Signs Temp 98.7 F 01/17/19 08:00 Pulse 60 01/17/19 08:00 Resp 18 01/17/19 08:00 BP 125/70 01/17/19 08:00 Pulse Ox 94 L 01/17/19 08:00 - Labs Result Diagrams: 01/17/19 05:05 01/17/19 05:05 Labs: Laboratory Results - last 24 hr 01/16/19 01/16/19 01/17/19 21:52 23:59 01:10 WBC RBC Hgb Hct MCV MCH MCHC RDW Plt Count MPV Neut % (Auto) Lymph % (Auto) [place] % (Auto) Eos % (Auto) Baso % (Auto) Neut # (Auto) Lymph # (Auto) [place] # (Auto) Eos # (Auto) Baso # (Auto) Sodium Potassium Chloride Carbon Dioxide Anion Gap BUN Creatinine Est GFR ( Amer) Est GFR (Non-Af Amer) POC Glucose (mg/dL) 114 H Random Glucose Calcium Total Bilirubin AST ALT Alkaline Phosphatase Total Protein Albumin Globulin Albumin/Globulin Ratio Triglycerides 144 D Cholesterol 126 LDL Cholesterol Direct 63 HDL Cholesterol 21 L Urine Color Urine Clarity Urine pH Ur Specific [place] Urine Protein Urine Glucose (UA) Urine Ketones Urine Blood Urine Nitrate Urine Bilirubin Urine Urobilinogen Ur Leukocyte Esterase Urine RBC (Auto) Urine Microscopic WBC Ur Squamous Epith Cells Ur Transition Epith Cell C. difficile Ag & Toxin Negative 01/17/19 01/17/19 01/17/19 05:05 05:05 05:47 WBC 11.7 H RBC 3.55 L Hgb 8.8 L Hct 27.1 L MCV 76.4 L MCH 24.7 L MCHC 32.3 L RDW 16.7 H Plt Count 399 MPV 8.7 Neut % (Auto) 54.7 Lymph % (Auto) 32.5 [place] % (Auto) 8.9 Eos % (Auto) 3.4 Baso % (Auto) 0.5 Neut # (Auto) 6.4 Lymph # (Auto) 3.8 [place] # (Auto) 1.0 H Eos # (Auto) 0.4 Baso # (Auto) 0.1 Sodium 148 Potassium 4.0 Chloride 119 H Carbon Dioxide 20 L Anion Gap 13 BUN 23 H Creatinine 1.9 H Est GFR ( Amer) 42 Est GFR (Non-Af Amer) 34 POC Glucose (mg/dL) 104 Random Glucose 104 Calcium 8.4 Total Bilirubin 0.4 AST 17 D ALT 13 L D Alkaline Phosphatase 64 Total Protein 6.6 Albumin 3.0 L Globulin 3.5 Albumin/Globulin Ratio 0.9 L Triglycerides Cholesterol LDL Cholesterol Direct HDL Cholesterol Urine Color Urine Clarity Urine pH Ur Specific [place] Urine Protein Urine Glucose (UA) Urine Ketones Urine Blood Urine Nitrate Urine Bilirubin Urine Urobilinogen Ur Leukocyte Esterase Urine RBC (Auto) Urine Microscopic WBC Ur Squamous Epith Cells Ur Transition Epith Cell C. difficile Ag & Toxin 01/17/19 05:53 WBC RBC Hgb Hct MCV MCH MCHC RDW Plt Count MPV Neut % (Auto) Lymph % (Auto) [place] % (Auto) Eos % (Auto) Baso % (Auto) Neut # (Auto) Lymph # (Auto) [place] # (Auto) Eos # (Auto) Baso # (Auto) Sodium Potassium Chloride Carbon Dioxide Anion Gap BUN Creatinine Est GFR ( Amer) Est GFR (Non-Af Amer) POC Glucose (mg/dL) Random Glucose Calcium Total Bilirubin AST ALT Alkaline Phosphatase Total Protein Albumin Globulin Albumin/Globulin Ratio Triglycerides Cholesterol LDL Cholesterol Direct HDL Cholesterol Urine Color Yellow Urine Clarity Slighty-cloudy Urine pH 5.0 Ur Specific [place] 1.049 H Urine Protein 30 Urine Glucose (UA) Neg Urine Ketones Negative Urine Blood Negative Urine Nitrate Negative Urine Bilirubin Negative Urine Urobilinogen 0.2-1.0 Ur Leukocyte Esterase Small Urine RBC (Auto) 6 H Urine Microscopic WBC 38 H Ur Squamous Epith Cells < 1 Ur Transition Epith Cell 1 C. difficile Ag & Toxin Assessment & Plan - Assessment and Plan (Free Text) Assessment: Patient was personally seen and examined by me in rounds with residents. Available labs and diagnostic data reviewed. Case, Patient's condition and management plan discussed with residents in rounds. Agree with resident's progress note. Plan: As ordered.
[2019-01-16] MEDS ORDERED: Sodium Chloride 0.9% 1,000 ML IV SCH (07:30)
--- NOTE | 2019-01-16 08:38 | CARD ---
APPROVED REPORT Date of service: 01/15/2019 EKG Measurement Heart [id number] <Conclusion> Sinus bradycardia Nonspecific ST and T wave abnormality Abnormal ECG
[2019-01-16 08:42] LABS: BASO % 0.2 % (0.0-2.0); EOS # 0.3 K/uL (0.0-0.7); EOS % 2.5 % (0.0-4.0); HEMOGLOBIN 9.1 g/dL (12.0-18.0); LYMPH # 2.7 K/uL (1.0-4.3); LYMPH % 23.4 % (20.0-40.0); MEAN CELL VOLUME 76.1 fl (80.0-94.0); MEAN CORPUSCULAR HEMOGLOBIN 24.4 pg (27.0-31.0); MEAN PLATELET VOLUME 8.6 fl (7.2-11.7); MONO # 1.1 K/uL (0.0-0.8); MONO % 9.2 % (0.0-10.0); NEUT # 7.6 K/uL (1.8-7.0); NEUT % 64.7 % (50.0-75.0); NRBC % 0.1 % (0.0-0.0); RBC 3.75 Mil/uL (4.40-5.90); RED CELL DISTRIBUTION WIDTH 16.6 % (11.5-14.5); WHITE BLOOD COUNT 11.7 K/uL (4.8-10.8)
[2019-01-16] MEDS ORDERED: Patient's Own Med (Azelastine Hcl [Azelastine Hcl] 1 DROP) EACHEYE SCH (09:00)
[2019-01-16 09:19] LABS: ALB/GLOB RATIO 0.7 (1.0-2.1); ALBUMIN 2.8 g/dL (3.5-5.0); CALCIUM 8.2 mg/dL (8.4-10.2)
[2019-01-16] MEDS ORDERED: Potassium Chloride 20 mEq 100 ML IVPB ONE (10:26)
[2019-01-16] MEDS: Fluticasone-Salmeterol 250-50mcg Diskus IH SCH ×2 (11:46→21:00)
--- NOTE | 2019-01-16 12:21 | CT ---
Date of service: 01/15/2019 PROCEDURE: CT Abdomen and Pelvis without intravenous contrast HISTORY: Right sided abdominal pain, rectal bleeding COMPARISON: None. TECHNIQUE: CT scan of the abdomen and pelvis was performed without administration of intravenous contrast. Oral contrast was not administered. Coronal and sagittal reformatted images were obtained. Radiation dose: Total exam DLP = 590.89 mGy-cm. This CT exam was performed using one or more of the following dose reduction techniques: Automated exposure control, adjustment of the mA and/or kV according to patient size, and/or use of iterative reconstruction technique. FINDINGS: LOWER THORAX: The visualized lungs are clear. LIVER: Normal in size. There is a 1.9 x 1.6 cm simple cyst in the right anterior inferior hepatic lobe. There is a nonspecific tiny subcapsular calcification in the right anterior inferior hepatic lobe. No ductal dilatation. GALLBLADDER AND BILE DUCTS: Well distended. No calcified gallstones. No common bile duct dilatation. PANCREAS: Normal in size. No gross lesion or ductal dilatation. SPLEEN: Normal in size. ADRENALS: The right adrenal gland is not visualized and may be surgically absent. The left adrenal gland is enlarged and nodular. There is a 2.5 cm adenoma in the left adrenal gland. KIDNEYS AND URETERS: The right kidney is normal in size. No hydronephrosis or nephrolithiasis. There are multiple simple cysts in the right kidney, the largest in the lower pole measures 4.0 cm. There is a 9 mm high attenuation lesion in the upper pole of the right kidney statistically most compatible with a hemorrhagic cyst. There is nonspecific perinephric fat stranding. The left kidney is surgically absent. VASCULATURE: Normal in caliber. No aortic aneurysm. There are aortic atherosclerotic calcifications present. BOWEL: Evaluation of the bowel is limited in the absence of oral contrast. The small bowel loops are normal in caliber. There is diffuse dilatation of fluid-filled colon. There is apparent mild circumferential mural thickening in the left hemicolon with pericolonic inflammatory changes, worse in the splenic flexure of colon. There are adjacent small enlarged mesenteric lymph nodes. APPENDIX: Normal appendix. PERITONEUM: No free fluid. No free air. LYMPH NODES: No enlarged lymph nodes. BLADDER: Well distended and normal in appearance. REPRODUCTIVE: Mild enlargement of the prostate gland. There are multiple radiation seeds within the prostate gland. BONES: No acute fracture. There is diffuse bone demineralization and multilevel degenerative changes in the spine. OTHER FINDINGS: There are bilateral small fat containing inguinal hernias. There is a small sliding hiatal hernia. IMPRESSION: 1. Findings are most compatible with acute colitis involving the left hemicolon, worse in the splenic flexure. No micro perforation or drainable fluid collection. 2. Mild enlargement of the prostate gland with radiation seeds in place. 3. 2.5 cm benign adenoma in the left adrenal gland. A preliminary report was provided by [facility].
--- NOTE | 2019-01-16 13:33 | CP.PCM.PN ---
Subjective - Date & Time of Evaluation Date of Evaluation: 01/16/19 Time of Evaluation: 13:27 - Subjective Subjective: PT KNOWN TO ME WITH HX MULTIPLE SUPERFICIAL LOW GRADE BT LAST EVALUATED 12/31/17 AND FOUND TO HAVE SMALL SUPERFICIAL BT. BT IS DUE FOR FOLLOW UP ON OR ABOUTMAY 2018. SUGGEST OB TAIN URINE CULTURE. TREAT ANY + CULTURE,GI EVAL SHOULD INCLUDE STOOL FOR C DIFF SINCE THE PT HAS BEEN ON ANTIBIOTICS. LEAH Objective - Vital Signs/Intake and Output Vital Signs (last 24 hours): Temp Pulse Resp BP Pulse Ox 98.4 F 56 L 20 125/81 98 01/16/19 09:38 01/16/19 11:53 01/16/19 09:38 01/16/19 11:53 01/16/19 09:38 - Medications Medications: Current Medications Amlodipine Besylate (Norvasc) 10 mg PO DAILY [facility] Fluticasone Propionate (Flonase) 2 spr PRIYA DAILY [facility] Last Admin: 01/16/19 11:47 Dose: 2 spr Sodium Chloride (Sodium Chloride 0.9%) 1,000 mls @ 100 mls/hr IV .Q10H [facility] Stop: 01/16/19 17:29 Last Admin: 01/16/19 12:05 Dose: 100 mls/hr Loratadine (Claritin) 10 mg PO DAILY [facility] Losartan Potassium (Cozaar) 100 mg PO DAILY JOVANNY Memantine (Namenda) 10 mg PO BID [facility] Mesalamine (Rowasa Enema) 4 gm RC HS [facility] [place] Metoprolol Tartrate (Lopressor) 50 mg PO Q12 [facility] Last Admin: 01/16/19 11:53 Dose: 50 mg Pantoprazole Sodium (Protonix Inj) 40 mg IVP DAILY [facility] [place] Fluticasone/Salmeterol (Advair Diskus 250/50) 1 puff IH Q12 [facility] [place] Last Admin: 01/16/19 11:46 Dose: 1 puff Sitagliptin Phosphate (Januvia) 25 mg PO DAILY JOVANNY Tamsulosin HCl (Flomax) 0.4 mg PO DAILY [facility] - Labs Labs: 01/16/19 08:12 01/16/19 07:32 PT 13.8 Seconds (9.8-13.1) H 01/15/19 17:56 INR 1.2 01/15/19 17:56 APTT 29.5 Seconds (25.6-37.1) 01/15/19 17:56
[2019-01-16] MEDS ORDERED: Iodixanol 320 MG/ML 100 ML BOTTLE IV ONE (21:06)
[2019-01-16] MEDS ORDERED: Sodium Chloride 0.9% 50 ML IV ONE (21:07)
--- NOTE | 2019-01-16 21:10 | PCM.RRT ---
<Alysha Araujo - Last Filed: 01/16/19 21:35> - Constitutional Appears: absent: No Acute Distress - Head Head Exam: ATRAUMATIC, NORMAL INSPECTION - Eyes Eye Exam: absent: Nystagmus - Respiratory Exam Respiratory Exam: Clear to Ausculation Bilateral - Cardiovascular Exam Cardiovascular Exam: REGULAR RHYTHM, +S1, +S2 - GI/Abdominal Exam GI & Abdominal Exam: Soft, Tenderness. absent: Guarding, Rigid, Rebound Additional comments: some right sided tenderness noted - Neurological Exam Neurological Exam: Alert, Awake Additional exam: no gross facial deficits; able to respond to questions; able to follow some simple commands; unable to follow with eyes for H test; unable to raise left arm & minimally able to raise left leg; patient able to raise right arm and exhibited form setter steel pan forms strength in right arm only - Extremities Exam Extremities Exam: absent: Calf Tenderness Plan - Assessment of Findings&Treatment Plan [employer] called: [phone] Response time: 1 minute [employer] called by nurse for left sided weakness Present: Dr. Johnson & [employer] personnel 78y/o M with a history of bladder CA, TIA, HTN, & HLD admitted for evaluation of rt sided abd pain, diarrhea & rectal bleeding. [employer] was called by RN because patient had left sided weakness since this morning as reported by . Initial VS: 116/62, P-61 spo2-97% RR-16 Temp: 98.3F Interventions: -Code stroke -Neuro consult with Dr. Mathews -Head CT w/o contrast & Head CTA -lipid panel, A1c -lipitor 81 mg QD End VS: 139/66 P-65 Spo2-98% RR- 16 Temp: 98.3F A/P: 78y/o M with a history of bladder CA, TIA, HTN, & HLD admitted for evaluation of rt sided abd pain, diarrhea & rectal bleeding with left sided flaccid paralysis. -Given patient's left sided flaccid paralysis & hx if TIA CVA is possible. -FU results of Head CT & head CTA. -FU recommendations as per Dr. Mathews. -Patient's was present in the room and updated about current plan for patient. <Sarai Johnson - Last Filed: 01/16/19 22:42> [employer] Nurse Assessment - Vital Signs Vital Signs: Rapid Response Vital Sign Blood Pressure 116/62 Pulse Rate 61 Respiratory Rate 16 Temperature 98.3 F Oxygen Saturation 97 - Vital Signs at end of [employer] Vital Signs at end of [employer]: Rapid Response End Vital Sign Blood Pressure 131/66 Pulse Rate 65 Respiratory Rate 16 Temperature 98.3 F O2 Sat by Pulse Oximetry 98 Attending/Attestation - Attestation I have personally seen and examined this patient.: Yes I have fully participated in the care of the patient.: Yes I have reviewed all pertinent clinical information, including history, physical exam and plan: Yes Notes (Text): 01/16/19 22:40 Agree with findnigs and plan as above Discussed with Neurology, no large vessel occlusion on CTA, will initiate plavix 300 one time and maintenance going forward, ASA 81, Lipitor 40 mg, permissive H TN, and NS@100cc/hr. HD stable, transferred to telemetry.
[2019-01-17] MEDS: Potassium Chl 20 mEq in NS 1,000 ML IV SCH ×2 (00:05→21:22)
[2019-01-17 01:40] LABS: HDL CHOLESTEROL 21 MG/DL (30-70)
[2019-01-17 01:51] LABS: LDL CHOLESTEROL 63 mg/dL (0-129)
[2019-01-17 06:01] LABS: BASO # 0.1 K/uL (0.0-0.2); BASO % 0.5 % (0.0-2.0); EOS # 0.4 K/uL (0.0-0.7); EOS % 3.4 % (0.0-4.0); HEMOGLOBIN 8.8 g/dL (12.0-18.0); LYMPH # 3.8 K/uL (1.0-4.3); LYMPH % 32.5 % (20.0-40.0); MEAN CELL VOLUME 76.4 fl (80.0-94.0); MEAN CORPUSCULAR HEMOGLOBIN 24.7 pg (27.0-31.0); MEAN CORPUSCULAR HGB CONC 32.3 g/dL (33.0-37.0); MEAN PLATELET VOLUME 8.7 fl (7.2-11.7); MONO % 8.9 % (0.0-10.0); NEUT # 6.4 K/uL (1.8-7.0); NEUT % 54.7 % (50.0-75.0); NRBC % 0.1 % (0.0-0.0); RBC 3.55 Mil/uL (4.40-5.90); RED CELL DISTRIBUTION WIDTH 16.7 % (11.5-14.5); WHITE BLOOD COUNT 11.7 K/uL (4.8-10.8)
[2019-01-17 06:07] LABS: SQUAMOUS EPITHIAL < 1 /hpf (0-5); URINE BILIRUBIN NEGATIVE (NEGATIVE); URINE BLOOD NEGATIVE (NEGATIVE); URINE CLARITY SLIGHTY-CLOUDY (Clear); URINE COLOR YELLOW (YELLOW); URINE GLUCOSE (UA) NEG (NEGATIVE); URINE LEUKOCYTE ESTERASE SMALL Leu/uL (Negative); URINE PROTEIN 30 mg/dL (NEGATIVE); URINE UROBILINOGEN 0.2-1.0 mg/dL (0.2-1.0)
[2019-01-17 06:21] LABS: ALB/GLOB RATIO 0.9 (1.0-2.1); CALCIUM 8.4 mg/dL (8.4-10.2)
--- NOTE | 2019-01-17 07:11 | CP.PCM.PN ---
<Damian Soria - Last Filed: 01/17/19 08:52> Subjective - Date & Time of Evaluation Date of Evaluation: 01/17/19 Time of Evaluation: 07:09 - Subjective Subjective: Patient seen and examined this morning at bedside with Dr. Mathew. Overnight: [employer] was called due to Left side weakness: Neurology was consulted, negative CTA will follow official CT results. patient is alert and awake this morning, following commands, verbally respon sive. + loose stool Objective - Vital Signs/Intake and Output Vital Signs (last 24 hours): Temp Pulse Resp BP Pulse Ox 97.6 F 57 L 18 124/64 95 01/17/19 05:31 01/17/19 05:31 01/17/19 05:31 01/17/19 05:31 01/17/19 05:31 - Medications Medications: Current Medications Amlodipine Besylate (Norvasc) 10 mg PO DAILY [facility] Last Admin: 01/16/19 15:51 Dose: 10 mg Aspirin (Aspirin Chewable) 81 mg PO DAILY [facility] Atorvastatin Calcium (Lipitor) 40 mg PO DAILY [facility] Fluticasone Propionate (Flonase) 2 spr PRIYA DAILY [facility] Last Admin: 01/16/19 11:47 Dose: 2 spr Potassium Chloride/Sodium Chloride (Potassium Chl 20 Meq In Ns) 1,000 mls @ 100 mls/hr IV .Q10H [facility] Stop: 01/17/19 23:42 Last Admin: 01/17/19 00:05 Dose: 100 mls/hr Loratadine (Claritin) 10 mg PO DAILY [facility] Last Admin: 01/16/19 14:21 Dose: 10 mg Losartan Potassium (Cozaar) 100 mg PO DAILY [facility] Last Admin: 01/16/19 14:20 Dose: 100 mg Memantine (Namenda) 10 mg PO BID [facility] Last Admin: 01/16/19 16:03 Dose: Not Given Mesalamine (Rowasa Enema) 4 gm RC HS [facility] Last Admin: 01/16/19 23:43 Dose: 4 gm Metoprolol Tartrate (Lopressor) 50 mg PO Q12 [facility] Last Admin: 01/16/19 21:00 Dose: Not Given Pantoprazole Sodium (Protonix Inj) 40 mg IVP DAILY [facility] Last Admin: 01/16/19 14:20 Dose: 40 mg Fluticasone/Salmeterol (Advair Diskus 250/50) 1 puff IH Q12 [facility] Last Admin: 01/16/19 21:00 Dose: Not Given Sitagliptin Phosphate (Januvia) 25 mg PO DAILY [facility] Last Admin: 01/16/19 14:21 Dose: 25 mg Tamsulosin HCl (Flomax) 0.4 mg PO DAILY [facility] Last Admin: 01/16/19 14:21 Dose: 0.4 mg - Labs Labs: 01/17/19 05:05 01/17/19 05:05 PT 13.8 Seconds (9.8-13.1) H 01/15/19 17:56 INR 1.2 01/15/19 17:56 APTT 29.5 Seconds (25.6-37.1) 01/15/19 17:56 - Constitutional Appears: No Acute Distress - Head Exam Head Exam: NORMAL INSPECTION - Eye Exam Eye Exam: Normal appearance Pupil Exam: NORMAL ACCOMODATION - ENT Exam ENT Exam: Mucous Membranes Moist - Neck Exam Neck Exam: Normal Inspection - Respiratory Exam Respiratory Exam: Clear to Ausculation Bilateral, NORMAL BREATHING PATTERN - Cardiovascular Exam Cardiovascular Exam: REGULAR RHYTHM, +S1, +S2 - GI/Abdominal Exam GI & Abdominal Exam: Distended, Soft, Normal Bowel Sounds. absent: Tenderness - Extremities Exam Additional comments: Weak left side - Back Exam Back Exam: NORMAL INSPECTION - Neurological Exam Neurological Exam: Alert, Awake Neuro motor strength exam: Left Upper Extremity: 3, Right Upper Extremity: 4, Left Lower Extremity: 3, Right Lower Extremity: 4 - Psychiatric Exam Psychiatric exam: Normal Affect - Skin Skin Exam: Normal Color Assessment and Plan - Assessment and Plan (Free Text) Assessment: A/P; 78 y/o male with PMH of Ulcerative colitis, HTN, Bladder Ca, Dementia, prediabetes and CVA in 2007 admitted to [facility] for evaluation and treatment of chronic bloody diarrhea and acute R abdominal pain with distension. Left body weakness - S/p Code Stroke - CTA negative: f/u official reads - Consult, Dr. arnold, recommendations appreciated, will f/ further recs - C/w ASA and Lipitor. S/p Plavix Acute Anemia, 2/2 GI bleed - H/H: trending down - + FOBT - CT abdomen/Pelvis: + Colitis: see official read - Consult GI, Dr. Calvert, f/u recommendations - C/w IVF - f/u C.diff Ulcerative colitis - C/w home medications: as ordered JESUS - Likely due to dehaydration vs Bladder ca - C/w IVF - Monitor labs - Consider Nephrology - Avoid nephrotoxic drugs HTN/Arrhythmia - C/w Home medications as ordered Prediabetes - C/w home medications as ordered Bladder Ca - Urology consult, f/u recommendations - C/w Flomax DVT PPX - SCD for now due to bleeding Case discussed and patient seen with Dr. Mathew <Gatito Mathew - Last Filed: 01/17/19 11:35> Objective - Vital Signs/Intake and Output Vital Signs (last 24 hours): Temp Pulse Resp BP Pulse Ox 98.7 F 60 18 125/70 94 L 01/17/19 08:00 01/17/19 08:00 01/17/19 08:00 01/17/19 08:00 01/17/19 08:00 Intake and Output: 01/16/19 01/17/19 23:59 11:59 Intake Total 500 Output Total 1 Balance 499 - Medications Medications: Current Medications Amlodipine Besylate (Norvasc) 10 mg PO DAILY [facility] Last Admin: 01/17/19 09:21 Dose: 10 mg Aspirin (Aspirin Chewable) 81 mg PO DAILY [facility] Last Admin: 01/17/19 09:20 Dose: 81 mg Atorvastatin Calcium (Lipitor) 40 mg PO DAILY [facility] Last Admin: 01/17/19 09:20 Dose: 40 mg Fluticasone Propionate (Flonase) 2 spr PRIYA DAILY [facility] Last Admin: 01/16/19 11:47 Dose: 2 spr Potassium Chloride/Sodium Chloride (Potassium Chl 20 Meq In Ns) 1,000 mls @ 100 mls/hr IV .Q10H [facility] Stop: 01/17/19 23:42 Last Admin: 01/17/19 00:05 Dose: 100 mls/hr Ciprofloxacin (Cipro 400mg/200ml Dsw) 400 mg in 200 mls @ 200 mls/hr IVPB Q12 [facility]; Protocol Metronidazole (Flagyl 500mg/100ml Ns) 100 mls @ 100 mls/hr IVPB Q8 [facility]; Protocol Loratadine (Claritin) 10 mg PO DAILY [facility] Last Admin: 01/17/19 09:21 Dose: 10 mg Losartan Potassium (Cozaar) 100 mg PO DAILY [facility] Last Admin: 01/17/19 09:20 Dose: 100 mg Memantine (Namenda) 10 mg PO BID [facility] Last Admin: 01/17/19 09:20 Dose: 10 mg Mesalamine (Rowasa Enema) 4 gm RC HS [facility] Last Admin: 01/16/19 23:43 Dose: 4 gm Metoprolol Tartrate (Lopressor) 50 mg PO Q12 [facility] Last Admin: 01/17/19 09:21 Dose: 50 mg Pantoprazole Sodium (Protonix Inj) 40 mg IVP DAILY [facility] Last Admin: 01/17/19 09:20 Dose: 40 mg Fluticasone/Salmeterol (Advair Diskus 250/50) 1 puff IH Q12 [facility] Last Admin: 01/16/19 21:00 Dose: Not Given Sitagliptin Phosphate (Januvia) 25 mg PO DAILY [facility] Last Admin: 01/17/19 09:20 Dose: 25 mg Tamsulosin HCl (Flomax) 0.4 mg PO DAILY [facility] Last Admin: 01/17/19 09:20 Dose: 0.4 mg - Labs Labs: 01/17/19 05:05 01/17/19 05:05 PT 13.8 Seconds (9.8-13.1) H 01/15/19 17:56 INR 1.2 01/15/19 17:56 APTT 29.5 Seconds (25.6-37.1) 01/15/19 17:56 Assessment and Plan - Assessment and Plan (Free Text) Assessment: Patient was personally seen and examined by me in rounds with residents. Available labs and diagnostic data reviewed. Case, Patient's condition and management plan discussed with residents in rounds. Agree with resident's progress note. Plan: As ordered.
--- NOTE | 2019-01-17 09:52 | CT ---
Date of service: 01/16/2019 PROCEDURE: CT HEAD WITHOUT CONTRAST. HISTORY: left sided weakness since this morning COMPARISON: 09/27/2017. TECHNIQUE: Axial computed tomography images were obtained through the head/brain without intravenous contrast. Radiation dose: Total exam DLP = 864.68 mGy-cm. This CT exam was performed using one or more of the following dose reduction techniques: Automated exposure control, adjustment of the mA and/or kV according to patient size, and/or use of iterative reconstruction technique. FINDINGS: HEMORRHAGE: No intracranial hemorrhage. BRAIN: There is a chronic right posterior occipital infarction. There is a chronic lacunar infarction in the left castillo radiata and caudate head. There are small lacunar infarctions in the left basal ganglia. There are mild chronic microangiopathic changes. There is no mass, mass effect or abnormal extra-axial fluid collection. There is no territorial infarction. The midline sagittal structures are normal. VENTRICLES: There is mild age-related global parenchymal volume loss and proportionate enlargement of the ventricles and cortical sulci. CALVARIUM: There is no calvarial fracture or extracranial soft tissue swelling. PARANASAL SINUSES: Predominantly clear. MASTOID AIR CELLS: Predominantly clear. OTHER FINDINGS: None. IMPRESSION: No acute intracranial abnormality. Mild chronic microangiopathic changes and mild age-related global parenchymal volume loss. Chronic lacunar infarctions in the left castillo radiata, caudate head and basal ganglia. Chronic right posterior occipital infarction.
--- NOTE | 2019-01-17 12:05 | CT ---
Date of service: 01/16/2019 PROCEDURE: CTA HEAD AND NECK WITH CONTRAST HISTORY: CVA COMPARISON: None available. TECHNIQUE: Initial noncontrast head CT was performed. Subsequently, CT angiogram of the head and neck were performed after the intravenous administration of 80 mL of Omnipaque 350. Contiguous 1.5mm thick images were obtained in the axial plane of the neck. 2-D coronal and sagittal MPR images were obtained. Imaging postprocessing was performed with 3-D images also obtained. A delayed contrast head CT was also obtained. This CT exam was performed using one or more of the following dose reduction techniques: Automated exposure control, adjustment of the mA and/or kV according to patient size, and/or use of iterative reconstruction technique. Contrast dose: 85 mL Visipaque 320 Radiation dose: Total exam DLP = inf_radiation_dlp mGy-cm. FINDINGS: HEAD: Right: The intracranial internal carotid artery, and anterior and middle cerebral arteries are widely patent. Left: The intracranial internal carotid artery, and anterior and middle cerebral arteries are widely patent. Posterior circulation: The visualized intracranial vertebral arteries, basilar artery and posterior cerebral arteries are widely patent. There is no endoluminal filling defect to suggest thrombus. There is no intracranial saccular aneurysm. NECK: There is a three vessel aortic arch. There is no stenosis at the origins of the great vessels at the level of the aortic arch. No atherosclerotic calcification or mural plaque present. Right Carotid: On the right, the common carotid, internal carotid and external carotid arteries are widely patent. There is no hemodynamically significant stenosis in the internal carotid artery by NASCET criteria. Left Carotid: On the left, the common carotid, internal carotid and external carotid arteries are widely patent. There is no hemodynamically significant stenosis in the internal carotid artery by NASCET criteria. The vertebral arteries are widely patent. The right vertebral artery is hypoplastic, an anatomic variant. The visualized soft tissues of the neck are normal. There is a low-attenuation nodule in the lower pole of the right thyroid lobe. Please correlate with thyroid ultrasound. Biapical paraseptal emphysema. Multilevel degenerative disc disease in the cervical spine with degenerative retrolisthesis of C3 on C4. IMPRESSION: 1. No evidence of endoluminal thrombus,occlusion or definite significant stenosis in the intracranial arteries. 2. No evidence of hemodynamically significant stenosis in the internal carotid arteries. 3. Patent bilateral vertebral arteries. A preliminary report was provided by [employer].
[2019-01-17] MEDS: Fluticasone-Salmeterol 250-50mcg Diskus IH SCH ×2 (12:34→21:29)
[2019-01-17] MEDS: metroNIDAZOLE 500mg/100ml NS 100 ML IVPB SCH (14:15)
[2019-01-17] MEDS: Ciprofloxacin 400mg/200ml D5W 400 MG/200 ML BAG IVPB SCH ×2 (16:36→21:29)
[2019-01-17] MEDS ORDERED: Gadodiamide 287 MG/ML VIAL (15ML) IV ONE (18:37)
--- NOTE | 2019-01-17 19:12 | CARD ---
APPROVED REPORT Date of service: 01/17/2019 EXAM: Two-dimensional and M-mode echocardiogram with Doppler and color Doppler. Other Information Quality : [employer] : NSR INDICATION CVA/TIA 2D DIMENSIONS IVSd1.35 (0.7-1.1cm)LVDd5.07 (3.9-5.9cm) LVOT Diameter2.33 (1.8-2.4cm)PWd1.27 (0.7-1.1cm) IVSs1.53 (0.8-1.2cm)LVDs3.85 (2.5-4.0cm) FS (%) 24.0 %PWs1.32 (0.8-1.2cm) M-Mode DIMENSIONS Left Atrium (MM)4.53 (2.5-4.0cm)IVSd1.38 (0.7-1.1cm) Aortic Root3.13 (2.2-3.7cm)LVDd5.47 (4.0-5.6cm) Aortic Cusp Exc.1.94 (1.5-2.0cm)PWd1.38 (0.7-1.1cm) IVSs1.72 cmFS (%) 41 % LVDs3.22 (2.0-3.8cm)PWs1.88 cm Aortic Valve AoV Peak Bdzsvgii936.9cm/sAoV VTI32.4cmAO Peak GR.13mmHg LVOT Peak Xijpgmmm042.6cm/sLVOT VTI23.14cmAO Mean GR.7mmHg LISSET (VMAX)1.70bv1GWK (VTI)1.94du2DB P 1/2 Hhcd777br Mitral Valve MV E Xvpcqnhj03.0cm/sMV DECEL FQQT531vgTE A Hsmqovqo26.9cm/s MV XWM52vkP/A ratio0.9MVA (PHT)3.39cm2 TDI Lateral E' Peak V8.64cm/sMedial E' Peak V9.29cm/sE/Lateral E'6.9 E/Medial E'6.5 Tricuspid Valve TR Peak Szigqedd014tl/sRAP GPHNFHHV46lkXtBZ Peak Gr.19mmHg VAHE56jdHf LEFT VENTRICLE The left ventricle is normal size. There is mild concentric left ventricular hypertrophy. The left ventricular systolic function is low normal. The estimated ejection fraction is 50-55% No regional wall motion abnormalities noted.. Transmitral Doppler flow pattern is Grade I-abnormal relaxation pattern. No left ventricle thrombus noted on this study. There is no ventricular septal defect visualized. There is no left ventricular aneurysm. There is no mass noted in the left ventricle. RIGHT VENTRICLE The right ventricle is normal size. There is normal right ventricular wall thickness. The right ventricular systolic function is normal. ATRIA The left atrium is mildly dilated. The right atrium size is normal. The interatrial septum is intact with no evidence for an atrial septal defect. AORTIC VALVE The aortic valve is normal in structure. Mild aortic regurgitation is present. There is no aortic valvular stenosis. There is no aortic valvular vegetation. MITRAL VALVE The mitral valve is normal in structure. There is no evidence of mitral valve prolapse. There is no mitral valve stenosis. There is mild mitral valve regurgitation noted. TRICUSPID VALVE The tricuspid valve is normal in structure. There is mild tricuspid valve regurgitation noted. RVSP is calculated at 23 mm Hg. There is no tricuspid valve prolapse or vegetation. There is no tricuspid valve stenosis. PULMONIC VALVE The pulmonary valve is normal in structure. There is no pulmonic valvular regurgitation. There is no pulmonic valvular stenosis. GREAT VESSELS The aortic root is normal in size. The ascending aorta is normal in size. The pulmonary artery is normal. The IVC is normal in size and collapses >50% with inspiration. PERICARDIAL EFFUSION There is no pericardial effusion. There is no pleural effusion. <Conclusion> There is mild concentric left ventricular hypertrophy. The estimated ejection fraction is 50-55% Transmitral Doppler flow pattern is Grade I-abnormal relaxation pattern. The left atrium is mildly dilated. Mild aortic regurgitation is present. There is mild mitral valve regurgitation noted. There is mild tricuspid valve regurgitation noted. RVSP is calculated at 23 mm Hg.
--- NOTE | 2019-01-17 20:54 | MRI ---
Date of service: 01/17/2019 PROCEDURE: MRI BRAIN WITHOUT CONTRAST HISTORY: Left sided weakness COMPARISON: Comparison is made to the previous study dated 10/03/2017 TECHNIQUE: Multiplanar, multisequence MR images of the brain were obtained without intravenous contrast enhancement. FINDINGS: HEMORRHAGE: None DWI: There are foci of diffusion restriction noted at the right parietal lobe paracentral fissure region consistent with acute small/lacunar infarcts in the right MCA territory. BRAIN PARENCHYMA: No mass effect or edema. Focal encephalomalacia at the medial aspect of the right occipital lobe is again noted. Moderate for atrophy is noted. There are moderate to extensive white matter changes suggestive of chronic microvascular ischemic disease. Again noted are multiple chronic lacunar infarcts in the bilateral cerebral hemisphere. VENTRICLES: Unremarkable. No hydrocephalus. CRANIUM: Unremarkable. ORBITS: Grossly unremarkable. PARANASAL SINUSES/MASTOIDS: Clear VASCULAR SYSTEM: Skull base flow voids intact. OTHER FINDINGS: None. IMPRESSION: Small foci of diffusion restriction at the right parietal lobe suggestive of acute lacunar infarcts at the right MCA territory. Otherwise no significant interval changes noted since the previous MRI dated 10/03/2017 as described above. The above findings were reported to the nurse taking care of the patient at the [address] [place], [place] [id number] on 01/17/2019 at 8:40 p.m.
[2019-01-17 21:22] LABS: FOLATE 7.3 ng/mL
--- NOTE | 2019-01-17 23:14 | CP.PCM.CON ---
History of Present Illness - History of Present Illness History of Present Illness: 78 yo male with dementia and Diabetes admitted after he was noted to have bloody diarhea and CT evidence of left sided colitis. Yesterday [employer] was called for possible acute CVA. No GI bleeding noted during this hospitalization Review of Systems - Review of Systems Systems not reviewed;Unavailable: Dementia Past Patient History - Past Medical History & Family History Past Medical History?: Yes - Past Social History Smoking Status: Never Smoked - CARDIAC Hx Cardiac Disorders: Yes - NEUROLOGICAL Hx Neurological Disorder: Yes - HEENT Hx HEENT Problems: No - ENDOCRINE/METABOLIC Hx Endocrine Disorders: Yes Hx Diabetes Mellitus Type 2: Yes - HEMATOLOGICAL/ONCOLOGICAL Hx Blood Disorders: Yes Hx Cancer: Yes (BLADDER CANCER) - MUSCULOSKELETAL/RHEUMATOLOGICAL Hx Musculoskeletal Disorders: Yes Hx Gout: Yes - GASTROINTESTINAL Hx Gastrointestinal Disorders: Yes Hx Colitis: Yes Hx Gastroesophageal Reflux: Yes - GENITOURINARY/GYNECOLOGICAL Hx Genitourinary Disorders: Yes Hx Bladder Cancer: Yes Hx Hematuria: Yes Other/Comment: HX: URINARY FREQUENCY - PSYCHIATRIC Hx Psychophysiologic Disorder: No Hx Substance Use: No - SURGICAL HISTORY Hx Surgeries: Yes Other/Comment: HX: BLADDER CANCER TURBT. HX: NEPHROURETERECTOMY 2014. HX: CYSTOSCOPY WITH BLADDER BIOPSY AND FULGURATION(08/20/18) - ANESTHESIA Hx Anesthesia: Yes Hx Anesthesia Reactions: No Hx Malignant Hyperthermia: No Meds Allergies/Adverse Reactions: Allergies Allergy/AdvReac Type Severity Reaction Status Date / Time Penicillins Allergy RASH Verified 01/15/19 16:41 - Medications Medications: Current Medications Amlodipine Besylate (Norvasc) 10 mg PO DAILY [facility] Last Admin: 01/17/19 09:21 Dose: 10 mg Aspirin (Aspirin Chewable) 81 mg PO DAILY [facility] Last Admin: 01/17/19 09:20 Dose: 81 mg Atorvastatin Calcium (Lipitor) 40 mg PO DAILY [facility] Last Admin: 01/17/19 09:20 Dose: 40 mg Fluticasone Propionate (Flonase) 2 spr PRIYA DAILY [facility] Last Admin: 01/17/19 12:34 Dose: 2 spr Potassium Chloride/Sodium Chloride (Potassium Chl 20 Meq In Ns) 1,000 mls @ 100 mls/hr IV .Q10H [facility] Stop: 01/17/19 23:42 Last Admin: 01/17/19 21:22 Dose: 100 mls/hr Ciprofloxacin (Cipro 400mg/200ml Dsw) 400 mg in 200 mls @ 200 mls/hr IVPB Q12 [facility]; Protocol Last Admin: 01/17/19 21:29 Dose: 200 mls/hr Metronidazole (Flagyl 500mg/100ml Ns) 100 mls @ 100 mls/hr IVPB Q8 [facility]; Protocol Last Admin: 01/17/19 14:15 Dose: 100 mls/hr Loratadine (Claritin) 10 mg PO DAILY [facility] Last Admin: 01/17/19 09:21 Dose: 10 mg Losartan Potassium (Cozaar) 100 mg PO DAILY [facility] Last Admin: 01/17/19 09:20 Dose: 100 mg Memantine (Namenda) 10 mg PO BID [facility] Last Admin: 01/17/19 16:35 Dose: 10 mg Mesalamine (Rowasa Enema) 4 gm RC HS [facility] Last Admin: 01/17/19 21:26 Dose: 4 gm Metoprolol Tartrate (Lopressor) 50 mg PO Q12 [facility] Last Admin: 01/17/19 21:30 Dose: 50 mg Pantoprazole Sodium (Protonix Inj) 40 mg IVP DAILY [facility] Last Admin: 01/17/19 09:20 Dose: 40 mg Fluticasone/Salmeterol (Advair Diskus 250/50) 1 puff IH Q12 [facility] Last Admin: 01/17/19 21:29 Dose: 1 puff Sitagliptin Phosphate (Januvia) 25 mg PO DAILY [facility] Last Admin: 01/17/19 09:20 Dose: 25 mg Tamsulosin HCl (Flomax) 0.4 mg PO DAILY [facility] Last Admin: 01/17/19 09:20 Dose: 0.4 mg Physical Exam - Constitutional Appears: No Acute Distress - Head Exam Head Exam: ATRAUMATIC - Eye Exam Eye Exam: Normal appearance - ENT Exam ENT Exam: Normal Exam - Respiratory Exam Respiratory Exam: Clear to Auscultation Bilateral - Cardiovascular Exam Cardiovascular Exam: REGULAR RHYTHM - GI/Abdominal Exam GI & Abdominal Exam: Normal Bowel Sounds, Soft. absent: Tenderness Results - Vital Signs Recent Vital Signs: Last Vital Signs Temp 98.5 F 01/17/19 16:41 Pulse 62 01/17/19 21:30 Resp 17 01/17/19 16:41 BP 118/68 01/17/19 21:30 Pulse Ox 92 L 01/17/19 16:41 - Labs Result Diagrams: 01/17/19 05:05 01/17/19 05:05 Labs: Laboratory Results - last 24 hr 01/16/19 01/16/19 01/17/19 23:59 23:59 01:10 WBC RBC Hgb Hct MCV MCH MCHC RDW Plt Count MPV Neut % (Auto) Lymph % (Auto) [place] % (Auto) Eos % (Auto) Baso % (Auto) Neut # (Auto) Lymph # (Auto) [place] # (Auto) Eos # (Auto) Baso # (Auto) ESR Sodium Potassium Chloride Carbon Dioxide Anion Gap BUN Creatinine Est GFR ( Amer) Est GFR (Non-Af Amer) POC Glucose (mg/dL) Random Glucose Hemoglobin A1c 6.1 Calcium Total Bilirubin AST ALT Alkaline Phosphatase Total Protein Albumin Globulin Albumin/Globulin Ratio Triglycerides 144 D Cholesterol 126 LDL Cholesterol Direct 63 HDL Cholesterol 21 L Vitamin B12 25-OH Vitamin D Total Folate TSH 3rd Generation Urine Color Urine Clarity Urine pH Ur Specific [place] Urine Protein Urine Glucose (UA) Urine Ketones Urine Blood Urine Nitrate Urine Bilirubin Urine Urobilinogen Ur Leukocyte Esterase Urine RBC (Auto) Urine Microscopic WBC Ur Squamous Epith Cells Ur Transition Epith Cell C. difficile Ag & Toxin Negative 01/17/19 01/17/19 01/17/19 05:05 05:05 05:47 WBC 11.7 H RBC 3.55 L Hgb 8.8 L Hct 27.1 L MCV 76.4 L MCH 24.7 L MCHC 32.3 L RDW 16.7 H Plt Count 399 MPV 8.7 Neut % (Auto) 54.7 Lymph % (Auto) 32.5 [place] % (Auto) 8.9 Eos % (Auto) 3.4 Baso % (Auto) 0.5 Neut # (Auto) 6.4 Lymph # (Auto) 3.8 [place] # (Auto) 1.0 H Eos # (Auto) 0.4 Baso # (Auto) 0.1 ESR Sodium 148 Potassium 4.0 Chloride 119 H Carbon Dioxide 20 L Anion Gap 13 BUN 23 H Creatinine 1.9 H Est GFR ( Amer) 42 Est GFR (Non-Af Amer) 34 POC Glucose (mg/dL) 104 Random Glucose 104 Hemoglobin A1c Calcium 8.4 Total Bilirubin 0.4 AST 17 D ALT 13 L D Alkaline Phosphatase 64 Total Protein 6.6 Albumin 3.0 L Globulin 3.5 Albumin/Globulin Ratio 0.9 L Triglycerides Cholesterol LDL Cholesterol Direct HDL Cholesterol Vitamin B12 25-OH Vitamin D Total Folate TSH 3rd Generation Urine Color Urine Clarity Urine pH Ur Specific [place] Urine Protein Urine Glucose (UA) Urine Ketones Urine Blood Urine Nitrate Urine Bilirubin Urine Urobilinogen Ur Leukocyte Esterase Urine RBC (Auto) Urine Microscopic WBC Ur Squamous Epith Cells Ur Transition Epith Cell C. difficile Ag & Toxin 01/17/19 01/17/19 01/17/19 05:53 11:00 11:00 WBC RBC Hgb Hct MCV MCH MCHC RDW Plt Count MPV Neut % (Auto) Lymph % (Auto) [place] % (Auto) Eos % (Auto) Baso % (Auto) Neut # (Auto) Lymph # (Auto) [place] # (Auto) Eos # (Auto) Baso # (Auto) ESR Sodium Potassium Chloride Carbon Dioxide Anion Gap BUN Creatinine Est GFR ( Amer) Est GFR (Non-Af Amer) POC Glucose (mg/dL) Random Glucose Hemoglobin A1c Calcium Total Bilirubin AST ALT Alkaline Phosphatase Total Protein Albumin Globulin Albumin/Globulin Ratio Triglycerides Cholesterol LDL Cholesterol Direct HDL Cholesterol Vitamin B12 436 25-OH Vitamin D Total < 12.8 L Folate 7.3 TSH 3rd Generation 0.43 L Urine Color Yellow Urine Clarity Slighty-cloudy Urine pH 5.0 Ur Specific [place] 1.049 H Urine Protein 30 Urine Glucose (UA) Neg Urine Ketones Negative Urine Blood Negative Urine Nitrate Negative Urine Bilirubin Negative Urine Urobilinogen 0.2-1.0 Ur Leukocyte Esterase Small Urine RBC (Auto) 6 H Urine Microscopic WBC 38 H Ur Squamous Epith Cells < 1 Ur Transition Epith Cell 1 C. difficile Ag & Toxin 01/17/19 11:00 WBC RBC Hgb Hct MCV MCH MCHC RDW Plt Count MPV Neut % (Auto) Lymph % (Auto) [place] % (Auto) Eos % (Auto) Baso % (Auto) Neut # (Auto) Lymph # (Auto) [place] # (Auto) Eos # (Auto) Baso # (Auto) ESR 62 H Sodium Potassium Chloride Carbon Dioxide Anion Gap BUN Creatinine Est GFR ( Amer) Est GFR (Non-Af Amer) POC Glucose (mg/dL) Random Glucose Hemoglobin A1c Calcium Total Bilirubin AST ALT Alkaline Phosphatase Total Protein Albumin Globulin Albumin/Globulin Ratio Triglycerides Cholesterol LDL Cholesterol Direct HDL Cholesterol Vitamin B12 25-OH Vitamin D Total Folate TSH 3rd Generation Urine Color Urine Clarity Urine pH Ur Specific [place] Urine Protein Urine Glucose (UA) Urine Ketones Urine Blood Urine Nitrate Urine Bilirubin Urine Urobilinogen Ur Leukocyte Esterase Urine RBC (Auto) Urine Microscopic WBC Ur Squamous Epith Cells Ur Transition Epith Cell C. difficile Ag & Toxin Assessment & Plan (1) GI bleed Assessment and Plan: CT suggests left sided colitis and abx started. Will follow clinically. Will avoid colonoscopy for now due to possible CVA . Status: Acute
[2019-01-18] MEDS: metroNIDAZOLE 500mg/100ml NS 100 ML IVPB SCH ×4 (00:51→17:56)
[2019-01-18 05:57] LABS: BASO % 0.3 % (0.0-2.0); EOS # 0.2 K/uL (0.0-0.7); EOS % 1.3 % (0.0-4.0); HEMOGLOBIN 8.9 g/dL (12.0-18.0); LYMPH # 4.3 K/uL (1.0-4.3); LYMPH % 33.3 % (20.0-40.0); MEAN CELL VOLUME 76.4 fl (80.0-94.0); MEAN CORPUSCULAR HEMOGLOBIN 24.3 pg (27.0-31.0); MEAN CORPUSCULAR HGB CONC 31.8 g/dL (33.0-37.0); MEAN PLATELET VOLUME 8.6 fl (7.2-11.7); MONO # 1.2 K/uL (0.0-0.8); MONO % 9.5 % (0.0-10.0); NEUT # 7.2 K/uL (1.8-7.0); NEUT % 55.6 % (50.0-75.0); NRBC % 0.1 % (0.0-0.0); RBC 3.68 Mil/uL (4.40-5.90)
[2019-01-18 05:59] LABS: ALB/GLOB RATIO 0.8 (1.0-2.1); CALCIUM 8.3 mg/dL (8.4-10.2)
[2019-01-18] MEDS: Ciprofloxacin 400mg/200ml D5W 400 MG/200 ML BAG IVPB SCH (08:52)
[2019-01-18] MEDS: Fluticasone-Salmeterol 250-50mcg Diskus IH SCH ×2 (08:53→21:25)
[2019-01-18] MEDS ORDERED: Ergocalciferol 50,000 Intl Units Cap PO SCH (09:15)
--- NOTE | 2019-01-18 10:11 | CP.PCM.CON ---
History of Present Illness - History of Present Illness History of Present Illness: Neurology Consultation Note: Consult requested by Dr. Mathew Mr. Loya is a 78-year-old man with a past medical history of Ulcerative colitis, Hypotension, bladder cancer, Dementia, DM and previous stroke in 2007, who was admitted for GI bleed and abdominal distension. MRI brain was done to evaluate for possible new stroke after he woke up with left side weakness on 01/16, and showed right MCA embolic appearing small infarcts. He was not a candidate for IV tPA at that time due to waking up with the symptoms. CTA of the head/neck was unremarkable. He was started on aspirin and plavix. Today, the patient was pleasant, but confused, and was able to move all extremities and did not appear to have significant weakness. He had no complaints. Review of Systems - Review of Systems Systems not reviewed;Unavailable: Dementia Past Patient History - Past Medical History & Family History Past Medical History?: Yes - Past Social History Smoking Status: Never Smoked - CARDIAC Hx Cardiac Disorders: Yes - NEUROLOGICAL Hx Neurological Disorder: Yes - HEENT Hx HEENT Problems: No - ENDOCRINE/METABOLIC Hx Endocrine Disorders: Yes Hx Diabetes Mellitus Type 2: Yes - HEMATOLOGICAL/ONCOLOGICAL Hx Blood Disorders: Yes Hx Cancer: Yes (BLADDER CANCER) - MUSCULOSKELETAL/RHEUMATOLOGICAL Hx Musculoskeletal Disorders: Yes Hx Gout: Yes - GASTROINTESTINAL Hx Gastrointestinal Disorders: Yes Hx Colitis: Yes Hx Gastroesophageal Reflux: Yes - GENITOURINARY/GYNECOLOGICAL Hx Genitourinary Disorders: Yes Hx Bladder Cancer: Yes Hx Hematuria: Yes Other/Comment: HX: URINARY FREQUENCY - PSYCHIATRIC Hx Psychophysiologic Disorder: No Hx Substance Use: No - SURGICAL HISTORY Hx Surgeries: Yes Other/Comment: HX: BLADDER CANCER TURBT. HX: NEPHROURETERECTOMY 2014. HX: CYSTOSCOPY WITH BLADDER BIOPSY AND FULGURATION(08/20/18) - ANESTHESIA Hx Anesthesia: Yes Hx Anesthesia Reactions: No Hx Malignant Hyperthermia: No Meds Allergies/Adverse Reactions: Allergies Allergy/AdvReac Type Severity Reaction Status Date / Time Penicillins Allergy RASH Verified 01/15/19 16:41 - Medications Medications: Current Medications Amlodipine Besylate (Norvasc) 10 mg PO DAILY [facility] Last Admin: 01/18/19 09:01 Dose: 10 mg Aspirin (Aspirin Chewable) 81 mg PO DAILY [facility] Last Admin: 01/18/19 08:54 Dose: 81 mg Atorvastatin Calcium (Lipitor) 40 mg PO DAILY [facility] Last Admin: 01/18/19 08:56 Dose: 40 mg Clopidogrel Bisulfate (Plavix) 75 mg PO DAILY [facility] Ergocalciferol (Drisdol 50,000 Intl Units Cap) 1 cap PO Q7D [facility] Fluticasone Propionate (Flonase) 2 spr PRIYA DAILY [facility] Last Admin: 01/17/19 12:34 Dose: 2 spr Ciprofloxacin (Cipro 400mg/200ml Dsw) 400 mg in 200 mls @ 200 mls/hr IVPB Q12 [facility]; Protocol Last Admin: 01/18/19 08:52 Dose: 200 mls/hr Metronidazole (Flagyl 500mg/100ml Ns) 100 mls @ 100 mls/hr IVPB Q8 [facility]; Protocol Last Admin: 01/18/19 08:53 Dose: 100 mls/hr Loratadine (Claritin) 10 mg PO DAILY [facility] Last Admin: 01/18/19 08:54 Dose: 10 mg Losartan Potassium (Cozaar) 100 mg PO DAILY [facility] Last Admin: 01/18/19 08:55 Dose: 100 mg Memantine (Namenda) 10 mg PO BID [facility] Last Admin: 01/18/19 09:01 Dose: 10 mg Mesalamine (Rowasa Enema) 4 gm RC HS [facility] Last Admin: 01/17/19 21:26 Dose: 4 gm Metoprolol Tartrate (Lopressor) 50 mg PO Q12 [facility] Last Admin: 01/18/19 08:58 Dose: Not Given Pantoprazole Sodium (Protonix Inj) 40 mg IVP DAILY [facility] Last Admin: 01/17/19 09:20 Dose: 40 mg Fluticasone/Salmeterol (Advair Diskus 250/50) 1 puff IH Q12 [facility] Last Admin: 01/18/19 08:53 Dose: 1 puff Sitagliptin Phosphate (Januvia) 25 mg PO DAILY [facility] Last Admin: 01/18/19 08:56 Dose: 25 mg Tamsulosin HCl (Flomax) 0.4 mg PO DAILY [facility] Last Admin: 01/18/19 08:55 Dose: 0.4 mg Physical Exam - Constitutional Appears: Well - Head Exam Head Exam: ATRAUMATIC, NORMAL INSPECTION, NORMOCEPHALIC - Eye Exam Eye Exam: EOMI, Normal appearance, PERRL Pupil Exam: NORMAL ACCOMODATION, PERRL - ENT Exam ENT Exam: Mucous Membranes Moist, Normal Exam - Neck Exam Neck exam: Positive for: Normal Inspection - Respiratory Exam Respiratory Exam: Clear to Auscultation Bilateral, NORMAL BREATHING PATTERN - Cardiovascular Exam Cardiovascular Exam: REGULAR RHYTHM, +S1, +S2 - GI/Abdominal Exam GI & Abdominal Exam: Normal Bowel Sounds, Soft. absent: Tenderness - Extremities Exam Extremities exam: Positive for: normal inspection - Back Exam Back exam: NORMAL INSPECTION - Neurological Exam Neurological exam: Abnormal Gait, Alert, Altered, CN II-XII Intact, Reflexes Normal Additional comments: Slight left facial droop noted. Left arm pronator drift noted. NIHSS = 2 - Psychiatric Exam Psychiatric exam: Normal Affect, Normal Mood - Skin Skin Exam: Dry, Intact, Normal Color, Warm Results - Vital Signs Recent Vital Signs: Last Vital Signs Temp 98.2 F 01/18/19 09:53 Pulse 59 L 01/18/19 09:53 Resp 20 01/18/19 09:53 BP 122/66 01/18/19 09:53 Pulse Ox 98 01/18/19 09:53 - Labs Result Diagrams: 01/18/19 05:20 01/18/19 05:20 Labs: Laboratory Results - last 24 hr 01/16/19 01/17/19 01/17/19 23:59 11:00 11:00 WBC RBC Hgb Hct MCV MCH MCHC RDW Plt Count MPV Neut % (Auto) Lymph % (Auto) [place] % (Auto) Eos % (Auto) Baso % (Auto) Neut # (Auto) Lymph # (Auto) [place] # (Auto) Eos # (Auto) Baso # (Auto) ESR Sodium Potassium Chloride Carbon Dioxide Anion Gap BUN Creatinine Est GFR ( Amer) Est GFR (Non-Af Amer) POC Glucose (mg/dL) Random Glucose Hemoglobin A1c 6.1 Calcium Total Bilirubin AST ALT Alkaline Phosphatase Total Protein Albumin Globulin Albumin/Globulin Ratio Vitamin B12 436 25-OH Vitamin D Total < 12.8 L Folate 7.3 Free T4 TSH 3rd Generation 0.43 L 01/17/19 01/18/19 01/18/19 11:00 05:20 05:20 WBC 13.0 H RBC 3.68 L Hgb 8.9 L Hct 28.1 L MCV 76.4 L MCH 24.3 L MCHC 31.8 L RDW 17.0 H Plt Count 440 H MPV 8.6 Neut % (Auto) 55.6 Lymph % (Auto) 33.3 [place] % (Auto) 9.5 Eos % (Auto) 1.3 Baso % (Auto) 0.3 Neut # (Auto) 7.2 H Lymph # (Auto) 4.3 [place] # (Auto) 1.2 H Eos # (Auto) 0.2 Baso # (Auto) 0.0 ESR 62 H Sodium 149 H Potassium 4.1 Chloride 120 H Carbon Dioxide 19 L Anion Gap 14 BUN 25 H Creatinine 2.0 H Est GFR ( Amer) 39 Est GFR (Non-Af Amer) 32 POC Glucose (mg/dL) Random Glucose 109 Hemoglobin A1c Calcium 8.3 L Total Bilirubin 0.4 AST 17 ALT 13 L Alkaline Phosphatase 70 Total Protein 6.6 Albumin 3.0 L Globulin 3.6 Albumin/Globulin Ratio 0.8 L Vitamin B12 25-OH Vitamin D Total Folate Free T4 TSH 3rd Generation 0.63 01/18/19 01/18/19 05:20 07:04 WBC RBC Hgb Hct MCV MCH MCHC RDW Plt Count MPV Neut % (Auto) Lymph % (Auto) [place] % (Auto) Eos % (Auto) Baso % (Auto) Neut # (Auto) Lymph # (Auto) [place] # (Auto) Eos # (Auto) Baso # (Auto) ESR Sodium Potassium Chloride Carbon Dioxide Anion Gap BUN Creatinine Est GFR ( Amer) Est GFR (Non-Af Amer) POC Glucose (mg/dL) 117 H Random Glucose Hemoglobin A1c Calcium Total Bilirubin AST ALT Alkaline Phosphatase Total Protein Albumin Globulin Albumin/Globulin Ratio Vitamin B12 25-OH Vitamin D Total Folate Free T4 1.21 TSH 3rd Generation Assessment & Plan (1) Ischemic stroke Assessment and Plan: The appearance of the stroke is embolic. He does not have significant arterial disease on CTA. I recommend continuous cardiac monitoring, and if no arrhythmia is detected, consult cardiology for possible loop recorder insertion and longer term follow-up. Echocardiogram was negative. Continue aspirin 81 and Plavix 75 for 21 days, then continue only Plavix 75 mg indefinitely. Continue Lipitor. PT/OT for plan and treatment. Thank you for this consultation. Status: Acute
--- NOTE | 2019-01-18 10:43 | PQF ---
PROVIDER RESPONSE TEXT: Non-infectious Colitis, Acute Rectal bleeding due to acute Non-infectious and chronic ulcerative colitis REVIEWER QUERY TEXT: Documentation Clarification Your help is requested in clarifying the following clinical documentation, if you can please further specify in the medical record and discharge summary. Would you please clarify the 1) type of colitis and 2) link the rectal bleeding to the cause Type of colitis: -- Ulcerative -- Non-infectious -- Infectious -- Ischemic -- Other please specify The patient's Clinical Indicators include: Patient with a history of ulcerative colitis presents with right sided abdominal pain, distention, di arrhea and rectal bleeding. CT ABD: Findings are most compatible with acute colitis involving the left hemicolon, worse in the s plenic flexure. No micro perforation or drainable fluid collection. Rx: IV Cipro Query created by: Giselle Stern on 01/18/2019 10:31 AM Electronically signed by: 01/18/2019 10:41 AM
--- NOTE | 2019-01-18 11:02 | CP.PCM.PN ---
Subjective - Date & Time of Evaluation Date of Evaluation: 01/18/19 Time of Evaluation: 07:15 - Subjective Subjective: Patient seen and examined this morning at bedside with Dr. Mathew. Patient is alert and awake, NAD, no acute event overnight. Patient moves left extremities with significant improved weakness, walking to bathroom. No bloody diarrhea for now. Objective - Vital Signs/Intake and Output Vital Signs (last 24 hours): Temp Pulse Resp BP Pulse Ox 98.2 F 59 L 20 122/66 98 01/18/19 09:53 01/18/19 09:53 01/18/19 09:53 01/18/19 09:53 01/18/19 09:53 - Medications Medications: Current Medications Amlodipine Besylate (Norvasc) 10 mg PO DAILY [facility] Last Admin: 01/18/19 09:01 Dose: 10 mg Aspirin (Aspirin Chewable) 81 mg PO DAILY [facility] Last Admin: 01/18/19 08:54 Dose: 81 mg Atorvastatin Calcium (Lipitor) 40 mg PO DAILY [facility] Last Admin: 01/18/19 08:56 Dose: 40 mg Clopidogrel Bisulfate (Plavix) 75 mg PO DAILY [facility] Ergocalciferol (Drisdol 50,000 Intl Units Cap) 1 cap PO Q7D [facility] Fluticasone Propionate (Flonase) 2 spr PRIYA DAILY [facility] Last Admin: 01/17/19 12:34 Dose: 2 spr Ciprofloxacin (Cipro 400mg/200ml Dsw) 400 mg in 200 mls @ 200 mls/hr IVPB Q12 [facility]; Protocol Last Admin: 01/18/19 08:52 Dose: 200 mls/hr Metronidazole (Flagyl 500mg/100ml Ns) 100 mls @ 100 mls/hr IVPB Q8 [facility]; Protocol Last Admin: 01/18/19 08:53 Dose: 100 mls/hr Loratadine (Claritin) 10 mg PO DAILY [facility] Last Admin: 01/18/19 08:54 Dose: 10 mg Losartan Potassium (Cozaar) 100 mg PO DAILY [facility] Last Admin: 01/18/19 08:55 Dose: 100 mg Memantine (Namenda) 10 mg PO BID [facility] Last Admin: 01/18/19 09:01 Dose: 10 mg Mesalamine (Rowasa Enema) 4 gm RC HS [facility] Last Admin: 01/17/19 21:26 Dose: 4 gm Metoprolol Tartrate (Lopressor) 50 mg PO Q12 [facility] Last Admin: 01/18/19 08:58 Dose: Not Given Pantoprazole Sodium (Protonix Inj) 40 mg IVP DAILY [facility] Last Admin: 01/17/19 09:20 Dose: 40 mg Fluticasone/Salmeterol (Advair Diskus 250/50) 1 puff IH Q12 [facility] Last Admin: 01/18/19 08:53 Dose: 1 puff Sitagliptin Phosphate (Januvia) 25 mg PO DAILY [facility] Last Admin: 01/18/19 08:56 Dose: 25 mg Tamsulosin HCl (Flomax) 0.4 mg PO DAILY [facility] Last Admin: 01/18/19 08:55 Dose: 0.4 mg - Labs Labs: 01/18/19 05:20 01/18/19 05:20 PT 13.8 Seconds (9.8-13.1) H 01/15/19 17:56 INR 1.2 01/15/19 17:56 APTT 29.5 Seconds (25.6-37.1) 01/15/19 17:56 - Constitutional Appears: No Acute Distress - Head Exam Head Exam: NORMAL INSPECTION Additional comments: left side facial droop, minimum - Eye Exam Eye Exam: Normal appearance Pupil Exam: NORMAL ACCOMODATION - ENT Exam ENT Exam: Mucous Membranes Moist - Neck Exam Neck Exam: Normal Inspection - Respiratory Exam Respiratory Exam: Clear to Ausculation Bilateral, Wheezes - Cardiovascular Exam Cardiovascular Exam: REGULAR RHYTHM, +S1, +S2 - GI/Abdominal Exam GI & Abdominal Exam: Distended, Soft, Normal Bowel Sounds. absent: Tenderness, Rebound - Extremities Exam Additional comments: Patient is moving all extremities w/o any difficulties, Significantly improved weakness on left side, almost equal strength b/l - Neurological Exam Neurological Exam: Alert, Awake Neuro motor strength exam: Left Upper Extremity: 4, Right Upper Extremity: 4, Left Lower Extremity: 4, Right Lower Extremity: 4 Additional comments: Patient is moving all extremities w/o any difficulties, Significantly improved weakness on left side, almost equal strength b/l - Psychiatric Exam Psychiatric exam: Normal Affect - Skin Skin Exam: Normal Color Assessment and Plan - Assessment and Plan (Free Text) Assessment: A/P; 78 y/o male with PMH of Ulcerative colitis, HTN, Bladder Ca, Dementia, prediabetes and CVA in 2007 admitted to [facility] for evaluation and treatment of chronic bloody diarrhea and acute R abdominal pain with distension. Patient had [employer]ODUCT SCI[employer] overnight for acute CVA. Acute embolic infract/CVA, Improved Left body weakness - S/p Code Stroke - MRI head: Acute R MCA lacunar infract - Consult, Dr. arnold, recommendations appreciated, - C/w ASA for 21 days, C/w Plavix & Lipitor indefinably as per Neuro - C/w foam fabricator, Consider cardio consult for possible loop recorder - PT/OT, possible acute rehab/TCU Acute Anemia, 2/2 GI bleed due to acute non-infectious colitis and chronic ulcerative colitis - H/H: trending down but stable - + FOBT - CT abdomen/Pelvis: + Colitis: see official read - Consult GI, Dr. Calvert, recommendations appreciated - C/w IVF - No colonoscopy for now due to CVA - C/w Cipro and Flagyl, day 1 - C/w Plavix and ASA due to s/p CVA benefits, recent GI bleed considered Ulcerative colitis - C/w home medications: as ordered JESUS - Likely due to dehaydration vs Bladder ca - C/w IVF - Monitor labs - Consider Nephrology - Avoid nephrotoxic drugs HTN/Arrhythmia - C/w Home medications as ordered Prediabetes - C/w home medications as ordered Bladder Ca - Urology consult, f/u recommendations - C/w Flomax DVT PPX - SCD for now due to bleeding Case discussed and patient seen with Dr. Mathew
[2019-01-19] MEDS: metroNIDAZOLE 500mg/100ml NS 100 ML IVPB SCH ×3 (00:46→16:00)
[2019-01-19 08:12] LABS: HEMOGLOBIN 8.5 g/dL (12.0-18.0); MEAN CELL VOLUME 75.4 fl (80.0-94.0); MEAN CORPUSCULAR HEMOGLOBIN 24.9 pg (27.0-31.0); MEAN CORPUSCULAR HGB CONC 33.1 g/dL (33.0-37.0); RBC 3.39 Mil/uL (4.40-5.90); RED CELL DISTRIBUTION WIDTH 16.9 % (11.5-14.5); WHITE BLOOD COUNT 12.1 K/uL (4.8-10.8)
[2019-01-19 08:22] LABS: CALCIUM 8.5 mg/dL (8.4-10.2)
[2019-01-19] MEDS ORDERED: Ciprofloxacin 200mg/100ml D5W 100 ML IVPB SCH (09:00)
[2019-01-19] MEDS: Fluticasone-Salmeterol 250-50mcg Diskus IH SCH ×2 (09:06→20:50)
--- NOTE | 2019-01-19 11:06 | PN ---
DATE: 01/19/2019 SUBJECTIVE: The patient is seen and examined. Interim events noted. Consult noted and appreciated. Cardiology followup is pending. The patient remains in progressive care unit, on telemetry monitoring. The patient feels okay. Denies any new specific complaint. No chest pain or shortness of breath. PHYSICAL EXAMINATION: GENERAL: The patient is in no acute distress. VITAL SIGNS: Stable. HEART: S1 and S2, normal, regular. LUNGS: Good bilateral air exchange. ABDOMEN: Soft, nontender. EXTREMITIES: No edema. No calf swelling. No tenderness. No acute ischemia. CENTRAL NERVOUS SYSTEM: Essentially unchanged. If anything, the patient's stance seems to be improving. DIAGNOSTIC DATA: Available diagnostic data reviewed. Urine culture shows corynebacterium, but no sensitivity can be done. The patient does not have any symptoms, this seems to be probably skin contamination. ASSESSMENT AND PLAN: Overall, the patient is clinically stable and improving. Plan as ordered. Gatito Mathew MD
--- NOTE | 2019-01-19 16:30 | CP.PCM.CON ---
History of Present Illness - History of Present Illness History of Present Illness: I was asked to evaluate patient by Dr Carreon Patient is 78 year old male with HTN, CVA DM who presents with abdominal pain diarrhea which was bloody. The patient states symptoms were present for the last few weeks, and he has been nauseous. The patient presented to the hospital for further management. There was concern for a CVA and consultation was requested. The patient has chronic CVA and noted weakness of the left arm. Review of Systems - Constitutional Constitutional: absent: As Per HPI, Anorexia, Chills, Daytime Sleepiness, Excessive Sweating, Fatigue, Fever, Frequent Falls, Headache, Increased Appetite, Lethargy, Malaise, Night Sweats, Snoring, Sleep Apnea, Weight Gain, Weight Loss, Weakness, Other - EENT Eyes: absent: As Per HPI, Blind Spots, Blurred Vision, Change in Vision, Decreased Night Vision, Diplopia, Discharge, Dry Eye, Exophthalmos, Floaters, Irritation, Itchy Eyes, Loss of Peripheral Vision, Pain, Photophobia, Requires Corrective Lenses, Sees Flashes, Spots in Vision, Tunnel Vision, Other Visual Disturbances, Loss of Vision, Other Ears: absent: As Per HPI, Decreased Hearing, Ear Discharge, Ear Pain, Tinnitus, Abnormal Hearing, Disequilibrium, Dizziness, Other Nose/Mouth/Throat: absent: As Per HPI, Epistaxis, Nasal Congestion, Nasal Disc harge, Nasal Obstruction, Nasal Trauma, Nose Pain, Post Nasal Drip, Sinus Pain, Sinus Pressure, Bleeding Gums, Change in Voice, Dental Pain, Dry Mouth, Dysphagia, Halitosis, Hoarsness, Lip Swelling, Mouth Lesions, Mouth Pain, Odynophagia, Sore Throat, Throat Swelling, Tongue Swelling, Facial Pain, Neck Pain, Neck Mass, Other - Cardiovascular Cardiovascular: absent: As Per HPI, Acrocyanosis, Chest Pain, Chest Pain at Rest, Chest Pain with Activity, Claudication, Diaphoresis, Dyspnea, Dyspnea on Exertion, Edema, Irregular Heart Rhythm, Pain Radiating to Arm/Neck/Jaw, Leg Edema, Leg Ulcers, Lightheadedness, Orthopnea, Palpitations, Paroxysmal Nocturnal Dyspnea, Pedal Edema, Radiating Pain, Rapid Heart Rate, Slow Heart Rate, Syncope, Other - Respiratory Respiratory: absent: As Per HPI, Cough, Dyspnea, Hemoptysis, Dyspnea on Exertion, Wheezing, Snoring, Stridor, Pain on Inspiration, Chest Congestion, Excessive Mucous Production, Change in Mucous Color, Pain with Coughing, Other - Gastrointestinal Gastrointestinal: absent: As Per HPI, Abdominal Pain, Belching, Bloating, Change in Bowel Habits, Change in Stool Character, Coffee Ground Emesis, Constipation, Cramping, Diarrhea, Dyspepsia, Dysphagia, Early Satiety, Excessive Flatus, Fecal Incontinence, Heartburn, Hematemesis, Hematochezia, Loose Stools, Melena, Nausea, Odynophagia, Temesmus, Vomiting, Other - Genitourinary Genitourinary: absent: As Per HPI, Change in Urinary Stream, Difficulty Urinating, Dysuria, Flank Pain, Hematuria, Pyuria, Nocturia, Urinary Incontinence, Urinary Frequency, Urinary Hesitance, Urinary Urgency, Voiding Freq/Small Amts, Freq UTI, Hx Renal/Bladder Calculi, Hx /Renal Surgery, Bladder Distension, Other - Musculoskeletal Musculoskeletal: absent: As Per HPI, Abnormal Gait, Arthralgias, Atrophy, Back Pain, Deformity, Joint Swelling, Limited Range of Motion, Loss of Height, Muscle Cramps, Muscle Weakness, Myalgias, Neck Pain, Numbness, Radiating Pain into Limb, Stiffness, Tingling, Other - Integumentary Integumentary: absent: As Per HPI, Acne, Alopecia, Bleeding Lesions, Change in Hair, Change in Nails, Change in Pigmentation, Changing Lesions, Dry Skin, Eryth jorge a, Furuncle, Hirsutism, Lesions, New Lesions, Non-Healing Lesions, Photosensitivity, Pruritus, Rash, Skin Pain, Skin Ulcer, Sores, Striae, Swelling, Unusual Bruising, Wounds, Jaundice, Other - Neurological Neurological: Weakness - Psychiatric Psychiatric: absent: As Per HPI, Abnormal Sleep Pattern, Anhedonia, Anxiety, Auditory Hallucinations, Behavioral Changes, Change in Appetite, Change in Libido, Confusion, Depression, Difficulty Concentrating, Hallucinations, Homicidal Ideation, Hopelessness, Irritability, Memory Loss, Mood Swings, Panic Attacks, Paranoia, Suicidal Ideation, Visual Hallucinations, Tactile Robbie lucinations, Other - Endocrine Endocrine: absent: As Per HPI, Change in Body Appearance, Change in Libido, Cold Intolorance, Deepening of Voice, Excessive Sweating, Fatigue, Flushing, Heat Intolorance, Increase in Ring/Shoe/Hat Size, Palpitations, Polydipsia, P olyphagia, Polyuria, Other - Hematologic/Lymphatic Hematologic: absent: As Per HPI, Easy Bleeding, Easy Bruising, Lymphadenopathy, Other Past Patient History - Past Medical History & Family History Past Medical History?: Yes - Past Social History Smoking Status: Never Smoked - CARDIAC Hx Cardiac Disorders: Yes - NEUROLOGICAL Hx Neurological Disorder: Yes - HEENT Hx HEENT Problems: No - ENDOCRINE/METABOLIC Hx Endocrine Disorders: Yes Hx Diabetes Mellitus Type 2: Yes - HEMATOLOGICAL/ONCOLOGICAL Hx Blood Disorders: Yes Hx Cancer: Yes (BLADDER CANCER) - MUSCULOSKELETAL/RHEUMATOLOGICAL Hx Musculoskeletal Disorders: Yes Hx Gout: Yes - GASTROINTESTINAL Hx Gastrointestinal Disorders: Yes Hx Colitis: Yes Hx Gastroesophageal Reflux: Yes - GENITOURINARY/GYNECOLOGICAL Hx Genitourinary Disorders: Yes Hx Bladder Cancer: Yes Hx Hematuria: Yes Other/Comment: HX: URINARY FREQUENCY - PSYCHIATRIC Hx Psychophysiologic Disorder: No Hx Substance Use: No - SURGICAL HISTORY Hx Surgeries: Yes Other/Comment: HX: BLADDER CANCER TURBT. HX: NEPHROURETERECTOMY 2014. HX: CYSTOSCOPY WITH BLADDER BIOPSY AND FULGURATION(08/20/18) - ANESTHESIA Hx Anesthesia: Yes Hx Anesthesia Reactions: No Hx Malignant Hyperthermia: No Meds Allergies/Adverse Reactions: Allergies Allergy/AdvReac Type Severity Reaction Status Date / Time Penicillins Allergy RASH Verified 01/15/19 16:41 - Medications Medications: Current Medications Amlodipine Besylate (Norvasc) 10 mg PO DAILY [facility] Last Admin: 01/19/19 09:11 Dose: 10 mg Aspirin (Aspirin Chewable) 81 mg PO DAILY [facility] Last Admin: 01/19/19 09:09 Dose: 81 mg Atorvastatin Calcium (Lipitor) 40 mg PO DAILY [facility] Last Admin: 01/19/19 09:10 Dose: 40 mg Clopidogrel Bisulfate (Plavix) 75 mg PO DAILY [facility] Last Admin: 01/19/19 09:14 Dose: 75 mg Ergocalciferol (Drisdol 50,000 Intl Units Cap) 1 cap PO Q7D [facility] Last Admin: 01/18/19 12:00 Dose: 1 cap Fluticasone Propionate (Flonase) 2 spr PRIYA DAILY [facility] Last Admin: 01/19/19 09:07 Dose: 2 spr Metronidazole (Flagyl 500mg/100ml Ns) 100 mls @ 100 mls/hr IVPB Q8 [facility]; Protocol Last Admin: 01/19/19 16:00 Dose: 100 mls/hr Loratadine (Claritin) 10 mg PO DAILY [facility] Last Admin: 01/19/19 09:09 Dose: 10 mg Losartan Potassium (Cozaar) 100 mg PO DAILY [facility] Last Admin: 01/18/19 08:55 Dose: 100 mg Memantine (Namenda) 10 mg PO BID [facility] Last Admin: 01/19/19 16:00 Dose: 10 mg Mesalamine (Rowasa Enema) 4 gm RC HS [facility] Last Admin: 01/18/19 21:26 Dose: 4 gm Metoprolol Tartrate (Lopressor) 50 mg PO Q12 [facility] Last Admin: 01/19/19 09:14 Dose: 50 mg Pantoprazole Sodium (Protonix Inj) 40 mg IVP DAILY [facility] Last Admin: 01/19/19 09:14 Dose: 40 mg Fluticasone/Salmeterol (Advair Diskus 250/50) 1 puff IH Q12 [facility] Last Admin: 01/19/19 09:06 Dose: 1 puff Sitagliptin Phosphate (Januvia) 25 mg PO DAILY [facility] Last Admin: 01/19/19 09:10 Dose: 25 mg Tamsulosin HCl (Flomax) 0.4 mg PO DAILY [facility] Last Admin: 01/19/19 09:10 Dose: 0.4 mg Physical Exam - Constitutional Appears: Non-toxic - Head Exam Head Exam: NORMAL INSPECTION - Eye Exam Eye Exam: Normal appearance - ENT Exam ENT Exam: Mucous Membranes Moist - Neck Exam Neck exam: Positive for: Full Rom - Respiratory Exam Respiratory Exam: Decreased Breath Sounds, Clear to Auscultation Bilateral, NORMAL BREATHING PATTERN. absent: Rales, Rhonchi, Wheezes, Respiratory Distress - Cardiovascular Exam Cardiovascular Exam: REGULAR RHYTHM - GI/Abdominal Exam GI & Abdominal Exam: Normal Bowel Sounds - Rectal Exam Rectal Exam: Deferred - Extremities Exam Extremities exam: Positive for: normal inspection. Negative for: pedal edema - Back Exam Back exam: NORMAL INSPECTION - Neurological Exam Neurological exam: Alert, Oriented x3 - Psychiatric Exam Psychiatric exam: Normal Affect - Skin Skin Exam: Normal Color Results - Vital Signs Recent Vital Signs: Last Vital Signs Temp 98.6 F 01/19/19 15:51 Pulse 69 01/19/19 15:51 Resp 17 01/19/19 15:51 BP 109/65 01/19/19 15:51 Pulse Ox 96 01/19/19 15:51 - Labs Result Diagrams: 01/19/19 07:00 01/19/19 07:00 Labs: Laboratory Results - last 24 hr 01/18/19 01/18/19 01/19/19 16:52 21:19 05:01 WBC RBC Hgb Hct MCV MCH MCHC RDW Plt Count Sodium Potassium Chloride Carbon Dioxide Anion Gap BUN Creatinine Est GFR ( Amer) Est GFR (Non-Af Amer) POC Glucose (mg/dL) 123 H 124 H 126 H Random Glucose Calcium 01/19/19 01/19/19 01/19/19 07:00 07:00 10:41 WBC 12.1 H RBC 3.39 L Hgb 8.5 L Hct 25.6 L MCV 75.4 L MCH 24.9 L MCHC 33.1 RDW 16.9 H Plt Count 451 H Sodium 149 H Potassium 3.6 Chloride 115 H Carbon Dioxide 19 L Anion Gap 19 BUN 22 H Creatinine 1.9 H Est GFR ( Amer) 42 Est GFR (Non-Af Amer) 34 POC Glucose (mg/dL) 174 H Random Glucose 124 H Calcium 8.5 01/19/19 15:49 WBC RBC Hgb Hct MCV MCH MCHC RDW Plt Count Sodium Potassium Chloride Carbon Dioxide Anion Gap BUN Creatinine Est GFR ( Amer) Est GFR (Non-Af Amer) POC Glucose (mg/dL) 127 H Random Glucose Calcium - EKG Data EKG Interpreted by: Myself Assessment & Plan (1) TIA (transient ischemic attack) Assessment and Plan: patient is being evaluated by neurology . will continue management. given GI bleed will avoid anticoagulation. medical therapy and risk factor modification. stable for stroke rehab Status: Acute (2) HTN (hypertension) Assessment and Plan: blood pressure parameters per neuro Status: Chronic (3) Hypercholesterolemia Assessment and Plan: statin therapy Status: Acute
[2019-01-20] MEDS: metroNIDAZOLE 500mg/100ml NS 100 ML IVPB SCH ×2 (00:12→09:53)
--- NOTE | 2019-01-20 00:31 | CP.PCM.PN ---
Subjective - Date & Time of Evaluation Date of Evaluation: 01/19/19 Time of Evaluation: 23:00 - Subjective Subjective: Patient tolerating diet w/o abdominal pain. No further rectal bleeding. Objective - Vital Signs/Intake and Output Vital Signs (last 24 hours): Temp Pulse Resp BP Pulse Ox 98.3 F 72 18 115/61 96 01/20/19 00:26 01/20/19 00:26 01/20/19 00:26 01/20/19 00:26 01/20/19 00:26 - Medications Medications: Current Medications Amlodipine Besylate (Norvasc) 10 mg PO DAILY [facility] Last Admin: 01/19/19 09:11 Dose: 10 mg Aspirin (Aspirin Chewable) 81 mg PO DAILY [facility] Last Admin: 01/19/19 09:09 Dose: 81 mg Atorvastatin Calcium (Lipitor) 40 mg PO DAILY [facility] Last Admin: 01/19/19 09:10 Dose: 40 mg Clopidogrel Bisulfate (Plavix) 75 mg PO DAILY [facility] Last Admin: 01/19/19 09:14 Dose: 75 mg Ergocalciferol (Drisdol 50,000 Intl Units Cap) 1 cap PO Q7D [facility] Last Admin: 01/18/19 12:00 Dose: 1 cap Fluticasone Propionate (Flonase) 2 spr PRIYA DAILY [facility] Last Admin: 01/19/19 09:07 Dose: 2 spr Metronidazole (Flagyl 500mg/100ml Ns) 100 mls @ 100 mls/hr IVPB Q8 [facility]; Protocol Last Admin: 01/20/19 00:12 Dose: 100 mls/hr Loratadine (Claritin) 10 mg PO DAILY [facility] Last Admin: 01/19/19 09:09 Dose: 10 mg Losartan Potassium (Cozaar) 100 mg PO DAILY [facility] Last Admin: 01/18/19 08:55 Dose: 100 mg Memantine (Namenda) 10 mg PO BID [facility] Last Admin: 01/19/19 16:00 Dose: 10 mg Mesalamine (Rowasa Enema) 4 gm RC HS [facility] Last Admin: 01/19/19 21:26 Dose: 4 gm Metoprolol Tartrate (Lopressor) 50 mg PO Q12 [facility] Last Admin: 01/19/19 20:50 Dose: 50 mg Pantoprazole Sodium (Protonix Inj) 40 mg IVP DAILY [facility] Last Admin: 01/19/19 09:14 Dose: 40 mg Fluticasone/Salmeterol (Advair Diskus 250/50) 1 puff IH Q12 [facility] Last Admin: 01/19/19 20:50 Dose: 1 puff Sitagliptin Phosphate (Januvia) 25 mg PO DAILY [facility] Last Admin: 01/19/19 09:10 Dose: 25 mg Tamsulosin HCl (Flomax) 0.4 mg PO DAILY [facility] Last Admin: 01/19/19 09:10 Dose: 0.4 mg - Labs Labs: 01/19/19 07:00 01/19/19 07:00 PT 13.8 Seconds (9.8-13.1) H 01/15/19 17:56 INR 1.2 01/15/19 17:56 APTT 29.5 Seconds (25.6-37.1) 01/15/19 17:56 - Head Exam Head Exam: ATRAUMATIC - Eye Exam Eye Exam: Normal appearance - ENT Exam ENT Exam: Normal Exam - Neck Exam Neck Exam: Full ROM - Respiratory Exam Respiratory Exam: Clear to Ausculation Bilateral - Cardiovascular Exam Cardiovascular Exam: +S1, +S2 - GI/Abdominal Exam GI & Abdominal Exam: Soft, Normal Bowel Sounds. absent: Tenderness Assessment and Plan (1) GI bleed Assessment & Plan: Has been having regular BMs and no blood was seen. Will continue to follow with you clinically. Status: Acute
[2019-01-20 06:31] LABS: HEMOGLOBIN 8.9 g/dL (12.0-18.0); MEAN CELL VOLUME 76.3 fl (80.0-94.0); MEAN CORPUSCULAR HEMOGLOBIN 24.7 pg (27.0-31.0); MEAN CORPUSCULAR HGB CONC 32.3 g/dL (33.0-37.0); RBC 3.62 Mil/uL (4.40-5.90); RED CELL DISTRIBUTION WIDTH 17.3 % (11.5-14.5); WHITE BLOOD COUNT 10.7 K/uL (4.8-10.8)
[2019-01-20 06:49] LABS: ALB/GLOB RATIO 0.9 (1.0-2.1); CALCIUM 8.6 mg/dL (8.4-10.2)
[2019-01-20] MEDS: Fluticasone-Salmeterol 250-50mcg Diskus IH SCH ×2 (09:54→21:08)
--- NOTE | 2019-01-20 12:56 | PN ---
DATE: 01/20/2019 SUBJECTIVE: The patient seen and examined. Interim events noted. Consults noted and appreciated. Cardiology followup and consult noted and appreciated. The patient remains in progressive care unit, on telemetry monitoring. The patient is sleeping, arousable. Sleep is okay. Denies any chest pain or shortness of breath. No new complaint of dizziness. The patient is not such a good historian, but no specific issue reported by nursing staff. PHYSICAL EXAMINATION: GENERAL: The patient is in no acute distress. VITAL SIGNS: Stable. HEART: S1 and S2. Normal and regular. LUNGS: Good bilateral air exchange. ABDOMEN: Soft, nontender. EXTREMITIES: No edema. No calf swelling. No tenderness. No acute ischemia. CENTRAL NERVOUS SYSTEM: Essentially unchanged. EXTREMITIES: The patient has significant improvement in the left upper extremity after suffering 058___ stroke. DIAGNOSTIC DATA: Available diagnostic data reviewed. Telemetry monitoring does not show significant arrhythmias. ASSESSMENT: Overall, the patient's general medical condition is stable. The patient is for possible transfer to acute gastrointestinal clinic today. PLAN: As ordered. Case and plan discussed with the patient. Gatito Mathew MD
--- NOTE | 2019-01-20 20:32 | CP.PCM.PN ---
Subjective - Date & Time of Evaluation Date of Evaluation: 01/20/19 Time of Evaluation: 20:29 - Subjective Subjective: Was noted have small amount bright red blood with stool earlier Objective - Vital Signs/Intake and Output Vital Signs (last 24 hours): Temp Pulse Resp BP Pulse Ox 98.6 F 74 16 113/64 95 01/20/19 20:09 01/20/19 20:09 01/20/19 20:09 01/20/19 20:09 01/20/19 20:09 - Medications Medications: Current Medications Amlodipine Besylate (Norvasc) 10 mg PO DAILY [facility] Last Admin: 01/20/19 09:56 Dose: 10 mg Aspirin (Aspirin Chewable) 81 mg PO DAILY [facility] Last Admin: 01/20/19 09:55 Dose: 81 mg Atorvastatin Calcium (Lipitor) 40 mg PO DAILY [facility] Last Admin: 01/20/19 09:56 Dose: 40 mg Clopidogrel Bisulfate (Plavix) 75 mg PO DAILY [facility] Last Admin: 01/20/19 09:57 Dose: 75 mg Ergocalciferol (Drisdol 50,000 Intl Units Cap) 1 cap PO Q7D [facility] Last Admin: 01/18/19 12:00 Dose: 1 cap Fluticasone Propionate (Flonase) 2 spr PRIYA DAILY [facility] Last Admin: 01/20/19 09:54 Dose: 2 spr Loratadine (Claritin) 10 mg PO DAILY [facility] Last Admin: 01/20/19 09:55 Dose: 10 mg Losartan Potassium (Cozaar) 100 mg PO DAILY [facility] Last Admin: 01/18/19 08:55 Dose: 100 mg Memantine (Namenda) 10 mg PO BID [facility] Last Admin: 01/20/19 17:57 Dose: 10 mg Mesalamine (Rowasa Enema) 4 gm RC HS [facility] Last Admin: 01/19/19 21:26 Dose: 4 gm Metoprolol Tartrate (Lopressor) 50 mg PO Q12 [facility] Last Admin: 01/20/19 10:00 Dose: 50 mg Pantoprazole Sodium (Protonix Inj) 40 mg IVP DAILY [facility] Last Admin: 01/20/19 09:57 Dose: 40 mg Fluticasone/Salmeterol (Advair Diskus 250/50) 1 puff IH Q12 [facility] Last Admin: 01/20/19 09:54 Dose: 1 puff Sitagliptin Phosphate (Januvia) 25 mg PO DAILY [facility] Last Admin: 01/20/19 09:56 Dose: 25 mg Tamsulosin HCl (Flomax) 0.4 mg PO DAILY [facility] Last Admin: 01/20/19 09:56 Dose: 0.4 mg - Labs Labs: 01/20/19 04:30 01/20/19 04:30 PT 13.8 Seconds (9.8-13.1) H 01/15/19 17:56 INR 1.2 01/15/19 17:56 APTT 29.5 Seconds (25.6-37.1) 01/15/19 17:56 - Head Exam Head Exam: ATRAUMATIC - Eye Exam Eye Exam: Normal appearance Pupil Exam: PERRL - ENT Exam ENT Exam: Normal Exam - Neck Exam Neck Exam: Full ROM - Respiratory Exam Respiratory Exam: Clear to Ausculation Bilateral - Cardiovascular Exam Cardiovascular Exam: REGULAR RHYTHM - GI/Abdominal Exam GI & Abdominal Exam: Soft. absent: Tenderness Assessment and Plan (1) GI bleed Assessment & Plan: Had some bleeding earlier. No abdominal pain and he appears comfortable. None seen now. Will follow. Status: Acute
[2019-01-21 06:30] LABS: HEMOGLOBIN 8.5 g/dL (12.0-18.0); MEAN CELL VOLUME 75.9 fl (80.0-94.0); MEAN CORPUSCULAR HEMOGLOBIN 24.5 pg (27.0-31.0); MEAN CORPUSCULAR HGB CONC 32.3 g/dL (33.0-37.0); RBC 3.47 Mil/uL (4.40-5.90); RED CELL DISTRIBUTION WIDTH 17.2 % (11.5-14.5); WHITE BLOOD COUNT 11.2 K/uL (4.8-10.8)
[2019-01-21 06:39] LABS: CALCIUM 8.4 mg/dL (8.4-10.2)
[2019-01-21] MEDS: Fluticasone-Salmeterol 250-50mcg Diskus IH SCH (08:54)
[2019-01-21] MEDS: Pantoprazole 40 mg EC Tab PO SCH (10:57)
--- NOTE | 2019-01-21 11:49 | CP.PCM.CON ---
History of Present Illness - History of Present Illness History of Present Illness: 78 y/o male with Hx/o HTN, CVA in 2008 (evidence of lacunar infarcts on CT scan ), bladder Ca, Lt nephrectomy 3 yrs ago, DM 10 & dementia was admitted for abdominal pain & after admission had bloody diarrhea . Renal consult is requested because of elevated creatinine. Pt states that Lt kidney was removed because it was no good but denies cancer related. No Hx/o kidnry stones Baseline Creat level is not available. Past Patient History - Past Medical History & Family History Past Medical History?: Yes - Past Social History Smoking Status: Never Smoked - CARDIAC Hx Cardiac Disorders: Yes - NEUROLOGICAL Hx Neurological Disorder: Yes - HEENT Hx HEENT Problems: No - ENDOCRINE/METABOLIC Hx Endocrine Disorders: Yes Hx Diabetes Mellitus Type 2: Yes - HEMATOLOGICAL/ONCOLOGICAL Hx Blood Disorders: Yes Hx Cancer: Yes (BLADDER CANCER) - MUSCULOSKELETAL/RHEUMATOLOGICAL Hx Musculoskeletal Disorders: Yes Hx Gout: Yes - GASTROINTESTINAL Hx Gastrointestinal Disorders: Yes Hx Colitis: Yes Hx Gastroesophageal Reflux: Yes - GENITOURINARY/GYNECOLOGICAL Hx Genitourinary Disorders: Yes Hx Bladder Cancer: Yes Hx Hematuria: Yes Other/Comment: HX: URINARY FREQUENCY - PSYCHIATRIC Hx Psychophysiologic Disorder: No Hx Substance Use: No - SURGICAL HISTORY Hx Surgeries: Yes Other/Comment: HX: BLADDER CANCER TURBT. HX: NEPHROURETERECTOMY 2014. HX: CYSTOSCOPY WITH BLADDER BIOPSY AND FULGURATION(08/20/18) - ANESTHESIA Hx Anesthesia: Yes Hx Anesthesia Reactions: No Hx Malignant Hyperthermia: No Meds Allergies/Adverse Reactions: Allergies Allergy/AdvReac Type Severity Reaction Status Date / Time Penicillins Allergy RASH Verified 01/15/19 16:41 - Medications Medications: Current Medications Amlodipine Besylate (Norvasc) 10 mg PO DAILY [facility] Last Admin: 01/21/19 09:01 Dose: 10 mg Aspirin (Aspirin Chewable) 81 mg PO DAILY [facility] Last Admin: 01/21/19 08:55 Dose: 81 mg Atorvastatin Calcium (Lipitor) 40 mg PO DAILY [facility] Last Admin: 01/21/19 08:59 Dose: 40 mg Clopidogrel Bisulfate (Plavix) 75 mg PO DAILY [facility] Last Admin: 01/21/19 09:02 Dose: 75 mg Ergocalciferol (Drisdol 50,000 Intl Units Cap) 1 cap PO Q7D [facility] Last Admin: 01/18/19 12:00 Dose: 1 cap Fluticasone Propionate (Flonase) 2 spr PRIYA DAILY [facility] Last Admin: 01/21/19 08:58 Dose: 2 spr Loratadine (Claritin) 10 mg PO DAILY [facility] Last Admin: 01/21/19 08:57 Dose: 10 mg Losartan Potassium (Cozaar) 100 mg PO DAILY [facility] Last Admin: 01/18/19 08:55 Dose: 100 mg Memantine (Namenda) 10 mg PO BID [facility] Last Admin: 01/21/19 09:01 Dose: 10 mg Mesalamine (Rowasa Enema) 4 gm RC HS [facility] Last Admin: 01/20/19 21:09 Dose: Not Given Metoprolol Tartrate (Lopressor) 50 mg PO Q12 [facility] Last Admin: 01/21/19 08:59 Dose: 50 mg Pantoprazole Sodium (Protonix Ec Tab) 40 mg PO DAILY [facility] Last Admin: 01/21/19 10:57 Dose: 40 mg Sitagliptin Phosphate (Januvia) 25 mg PO DAILY [facility] Last Admin: 01/21/19 08:58 Dose: 25 mg Tamsulosin HCl (Flomax) 0.4 mg PO DAILY [facility] Last Admin: 01/21/19 08:57 Dose: 0.4 mg Physical Exam - Constitutional Appears: No Acute Distress - Head Exam Head Exam: ATRAUMATIC, NORMOCEPHALIC - Eye Exam Additional comments: Sclera anicteric. - ENT Exam ENT Exam: Mucous Membranes Dry - Neck Exam Additional comments: No tenderness over C--spine Trachea midline - Respiratory Exam Respiratory Exam: NORMAL BREATHING PATTERN Additional comments: Lungs are clear - Cardiovascular Exam Cardiovascular Exam: REGULAR RHYTHM Additional comments: No rub or S3 - GI/Abdominal Exam Additional comments: Abdomen is softly distended. C/o pain on palp over RUQ. No CVA tenderness - Extremities Exam Additional comments: No edema . Pedal pulses not palp but both feet feel warm. Results - Vital Signs Recent Vital Signs: Last Vital Signs Temp 98.3 F 01/21/19 09:12 Pulse 77 01/21/19 09:12 Resp 20 01/21/19 09:12 BP 117/56 L 01/21/19 09:12 Pulse Ox 97 01/21/19 09:12 - Labs Result Diagrams: 01/21/19 05:30 03/18/19 05:30 Labs: Laboratory Results - last 24 hr 01/20/19 01/20/19 01/21/19 16:25 22:08 05:30 WBC 11.2 H RBC 3.47 L Hgb 8.5 L Hct 26.3 L MCV 75.9 L MCH 24.5 L MCHC 32.3 L RDW 17.2 H Plt Count 509 H Sodium Potassium Chloride Carbon Dioxide Anion Gap BUN Creatinine Est GFR ( Amer) Est GFR (Non-Af Amer) POC Glucose (mg/dL) 136 H 140 H Random Glucose Calcium 01/21/19 01/21/19 01/21/19 05:30 05:48 11:28 WBC RBC Hgb Hct MCV MCH MCHC RDW Plt Count Sodium 152 H Potassium 3.5 L Chloride 118 H Carbon Dioxide 19 L Anion Gap 19 BUN 27 H Creatinine 2.0 H Est GFR ( Amer) 39 Est GFR (Non-Af Amer) 32 POC Glucose (mg/dL) 119 H 154 H Random Glucose 120 H Calcium 8.4 Assessment & Plan - Assessment and Plan (Free Text) Assessment: AKIPt may have underlying chronic renal insufficiency Acute omponent is probably secondary to dehydration/ GI bleeging Pts BP was also relatively low CT of abdomen report reviewed Multiple simple cysts reported on Rt kidney. Hypernatremia sec to above. Solitary Rt kidney G I bleed Hx/o bladder Ca DM. Hx/o CVA Plan: Suggest IV hydration with D5W & 1/2 NS Urine spot lytes & Urinalysis D/C Losartan because of the recall. Monitor renal function closely.
--- NOTE | 2019-01-21 18:58 | CP.PCM.PN ---
Subjective - Date & Time of Evaluation Date of Evaluation: 01/21/19 Time of Evaluation: 06:40 - Subjective Subjective: patient has no chest pain or dyspnea. Had diarrhea today. Objective - Vital Signs/Intake and Output Vital Signs (last 24 hours): Temp Pulse Resp BP Pulse Ox 98.2 F 71 16 96/56 L 96 01/21/19 16:41 01/21/19 16:41 01/21/19 16:41 01/21/19 16:41 01/21/19 16:41 - Medications Medications: Current Medications Amlodipine Besylate (Norvasc) 10 mg PO DAILY [facility] Last Admin: 01/21/19 09:01 Dose: 10 mg Aspirin (Aspirin Chewable) 81 mg PO DAILY [facility] Last Admin: 01/21/19 08:55 Dose: 81 mg Atorvastatin Calcium (Lipitor) 40 mg PO DAILY [facility] Last Admin: 01/21/19 08:59 Dose: 40 mg Clopidogrel Bisulfate (Plavix) 75 mg PO DAILY [facility] Last Admin: 01/21/19 09:02 Dose: 75 mg Ergocalciferol (Drisdol 50,000 Intl Units Cap) 1 cap PO Q7D [facility] Last Admin: 01/18/19 12:00 Dose: 1 cap Fluticasone Propionate (Flonase) 2 spr PRIYA DAILY [facility] Last Admin: 01/21/19 08:58 Dose: 2 spr Dextrose/Sodium Chloride (Dextrose 5%-0.45% Ns 500 Ml) 500 mls @ 60 mls/hr IV .Q8H20M [facility] Stop: 01/22/19 12:22 Last Admin: 01/21/19 12:38 Dose: 60 mls/hr Loratadine (Claritin) 10 mg PO DAILY [facility] Last Admin: 01/21/19 08:57 Dose: 10 mg Memantine (Namenda) 10 mg PO BID [facility] Last Admin: 01/21/19 09:01 Dose: 10 mg Mesalamine (Rowasa Enema) 4 gm RC HS [facility] Last Admin: 01/20/19 21:09 Dose: Not Given Metoprolol Tartrate (Lopressor) 50 mg PO Q12 [facility] Last Admin: 01/21/19 08:59 Dose: 50 mg Pantoprazole Sodium (Protonix Ec Tab) 40 mg PO DAILY [facility] Last Admin: 01/21/19 10:57 Dose: 40 mg Sitagliptin Phosphate (Januvia) 25 mg PO DAILY [facility] Last Admin: 01/21/19 08:58 Dose: 25 mg Tamsulosin HCl (Flomax) 0.4 mg PO DAILY [facility] Last Admin: 01/21/19 08:57 Dose: 0.4 mg - Labs Labs: 01/21/19 05:30 01/21/19 05:30 PT 13.8 Seconds (9.8-13.1) H 01/15/19 17:56 INR 1.2 01/15/19 17:56 APTT 29.5 Seconds (25.6-37.1) 01/15/19 17:56 - Constitutional Appears: Non-toxic - Head Exam Head Exam: NORMAL INSPECTION - Eye Exam Eye Exam: Normal appearance - ENT Exam ENT Exam: Mucous Membranes Moist - Neck Exam Neck Exam: Full ROM - Respiratory Exam Respiratory Exam: NORMAL BREATHING PATTERN - Cardiovascular Exam Cardiovascular Exam: REGULAR RHYTHM - GI/Abdominal Exam GI & Abdominal Exam: Normal Bowel Sounds - Rectal Exam Rectal Exam: Deferred - Extremities Exam Extremities Exam: absent: Pedal Edema - Back Exam Back Exam: NORMAL INSPECTION - Neurological Exam Neurological Exam: Alert - Psychiatric Exam Psychiatric exam: Normal Affect - Skin Skin Exam: Normal Color Assessment and Plan (1) TIA (transient ischemic attack) Assessment & Plan: patient appears at baseline. Status: Acute (2) HTN (hypertension) Assessment & Plan: blood pressure control Status: Chronic (3) Hypercholesterolemia Assessment & Plan: statin therapy Status: Acute
[2019-01-21 19:15] LABS: CREATININE, RANDOM URINE 137.2 mg/dL; SQUAMOUS EPITHIAL 1 /hpf (0-5); URINE BACTERIA RARE (<OCC); URINE BILIRUBIN NEGATIVE (NEGATIVE); URINE BLOOD NEGATIVE (NEGATIVE); URINE CLARITY SLIGHTY-CLOUDY (Clear); URINE GLUCOSE (UA) NEG (NEGATIVE); URINE LEUKOCYTE ESTERASE MOD Leu/uL (Negative); URINE PROTEIN 30 mg/dL (NEGATIVE); URINE UROBILINOGEN 0.2-1.0 mg/dL (0.2-1.0)
[2019-01-21 19:18] LABS: URINE COLOR AMBER (YELLOW)
[2019-01-22] MEDS: Pantoprazole 40 mg EC Tab PO SCH (08:08)
--- NOTE | 2019-01-22 08:21 | PN ---
DATE: 01/21/2019 SUBJECTIVE: The patient is seen and examined. Interim events noted. Consults noted and appreciated. The patient remains in progressive care unit on telemetry monitoring. The patient had an episode of bright red blood per rectum and GI evaluation was called for. Consults noted and appreciated. The patient denies any specific complaint of chest pain, or shortness of breath. sitting at bedside now, complaint of weakness . PHYSICAL EXAMINATION: GENERAL: The patient is in no acute distress. VITAL SIGNS: Stable. HEART: S1 and S2, normal and regular. LUNGS: Good bilateral air exchange. ABDOMEN: Soft and nontender. No organomegaly. No fluid. Bowel sounds are present and normal. No sign of acute abdomen. No guarding. No rigidity noted. No rebound. EXTREMITIES: No edema. No calf swelling or tenderness. No acute ischemia. CENTRAL NERVOUS SYSTEM: Essentially unchanged. DIAGNOSTIC DATA: Available diagnostic data reviewed. ASSESSMENT AND PLAN: Overall, the patient is medically stable and does not seem to be in any significant rectal bleed. We will await Gastroenterology recommendations. . Plan as ordered. Gatito Mathew MD
--- NOTE | 2019-01-22 08:52 | CP.PCM.PN ---
Subjective - Date & Time of Evaluation Date of Evaluation: 01/22/19 Time of Evaluation: 07:00 - Subjective Subjective: Patient seen and examined this morning at bedside with Dr. Mathew. Patient is alert and awake, NAD, no acute event overnight. No new episodes of bloody diarrhea. Objective - Vital Signs/Intake and Output Vital Signs (last 24 hours): Temp Pulse Resp BP Pulse Ox 98.5 F 70 18 118/67 94 L 01/22/19 08:00 01/22/19 08:11 01/22/19 08:00 01/22/19 08:11 01/22/19 08:00 - Medications Medications: Current Medications Amlodipine Besylate (Norvasc) 10 mg PO DAILY [facility] Last Admin: 01/22/19 08:08 Dose: 10 mg Aspirin (Aspirin Chewable) 81 mg PO DAILY [facility] Last Admin: 01/22/19 08:06 Dose: 81 mg Atorvastatin Calcium (Lipitor) 40 mg PO DAILY [facility] Last Admin: 01/22/19 08:12 Dose: 40 mg Clopidogrel Bisulfate (Plavix) 75 mg PO DAILY [facility] Last Admin: 01/22/19 08:11 Dose: 75 mg Ergocalciferol (Drisdol 50,000 Intl Units Cap) 1 cap PO Q7D [facility] Last Admin: 01/18/19 12:00 Dose: 1 cap Fluticasone Propionate (Flonase) 2 spr PRIYA DAILY [facility] Last Admin: 01/21/19 08:58 Dose: 2 spr Dextrose/Sodium Chloride (Dextrose 5%-0.45% Ns 500 Ml) 500 mls @ 60 mls/hr IV .Q8H20M [facility] Stop: 01/22/19 12:22 Last Admin: 01/22/19 04:56 Dose: 60 mls/hr Loratadine (Claritin) 10 mg PO DAILY [facility] Last Admin: 01/22/19 08:07 Dose: 10 mg Memantine (Namenda) 10 mg PO BID [facility] Last Admin: 01/22/19 08:11 Dose: 10 mg Mesalamine (Rowasa Enema) 4 gm RC HS [facility] Last Admin: 01/21/19 22:32 Dose: Not Given Metoprolol Tartrate (Lopressor) 50 mg PO Q12 [facility] Last Admin: 01/22/19 08:11 Dose: 50 mg Pantoprazole Sodium (Protonix Ec Tab) 40 mg PO DAILY [facility] Last Admin: 01/22/19 08:08 Dose: 40 mg Sitagliptin Phosphate (Januvia) 25 mg PO DAILY [facility] Last Admin: 01/22/19 08:07 Dose: 25 mg Tamsulosin HCl (Flomax) 0.4 mg PO DAILY [facility] Last Admin: 01/22/19 08:06 Dose: 0.4 mg - Labs Labs: 01/21/19 05:30 01/21/19 05:30 PT 13.8 Seconds (9.8-13.1) H 01/15/19 17:56 INR 1.2 01/15/19 17:56 APTT 29.5 Seconds (25.6-37.1) 01/15/19 17:56 - Constitutional Appears: No Acute Distress - Head Exam Head Exam: NORMAL INSPECTION - Eye Exam Eye Exam: Normal appearance - ENT Exam ENT Exam: Mucous Membranes Moist - Respiratory Exam Respiratory Exam: Clear to Ausculation Bilateral - Cardiovascular Exam Cardiovascular Exam: REGULAR RHYTHM - GI/Abdominal Exam GI & Abdominal Exam: Soft, Normal Bowel Sounds. absent: Tenderness - Extremities Exam Extremities Exam: Normal Inspection - Neurological Exam Neurological Exam: Alert - Psychiatric Exam Psychiatric exam: Normal Affect - Skin Skin Exam: Normal Color Assessment and Plan - Assessment and Plan (Free Text) Assessment: 78 y/o male with PMH of Ulcerative colitis, HTN, Bladder Ca, Dementia, prediabetes and CVA in 2007 admitted to [facility] for evaluation and treatment of chronic bloody diarrhea and acute R abdominal pain which has been improving and subsequentyl encoutered a new CVA, JESUS, and Hypernatremia. Pending dispo to subacute rehab. #Acute CVA #GI Bleed, stable #UC #AI #Hypernatremia #Hypokalemia - Nephrology following; JESUS 2/2 to volume depletion in setting of recent Diarrhea/GI bleed. IV hydration with D5W and NS - Replete potassium - Hg stable; Monitor H/H - Dual antiplatelet therapy and statin for stroke prevention - Mesalamine for UC - Management for chronic medical conditions as ordered Discussed case with Dr. Priyanka Hsu, PGY2
[2019-01-22 09:16] LABS: HEMOGLOBIN 8.9 g/dL (12.0-18.0); MEAN CELL VOLUME 75.2 fl (80.0-94.0); MEAN CORPUSCULAR HEMOGLOBIN 24.3 pg (27.0-31.0); MEAN CORPUSCULAR HGB CONC 32.4 g/dL (33.0-37.0); RBC 3.66 Mil/uL (4.40-5.90); RED CELL DISTRIBUTION WIDTH 17.6 % (11.5-14.5)
[2019-01-22 09:21] LABS: CALCIUM 8.6 mg/dL (8.4-10.2)
[2019-01-22] MEDS ORDERED: Potassium Chloride 20 mEq ER Tab PO ONE (09:45)
--- NOTE | 2019-01-22 12:57 | CP.PCM.PN ---
Subjective - Date & Time of Evaluation Date of Evaluation: 01/22/19 Time of Evaluation: 12:15 - Subjective Subjective: Pt c/o abdominal discomfort & continues to have diarrhea. No blood in stools. Objective - Vital Signs/Intake and Output Vital Signs (last 24 hours): Temp Pulse Resp BP Pulse Ox 97.6 F 70 18 120/71 100 01/22/19 12:00 01/22/19 12:00 01/22/19 12:00 01/22/19 12:00 01/22/19 12:00 - Medications Medications: Current Medications Amlodipine Besylate (Norvasc) 10 mg PO DAILY [facility] Last Admin: 01/22/19 08:08 Dose: 10 mg Aspirin (Aspirin Chewable) 81 mg PO DAILY [facility] Last Admin: 01/22/19 08:06 Dose: 81 mg Atorvastatin Calcium (Lipitor) 40 mg PO DAILY [facility] Last Admin: 01/22/19 08:12 Dose: 40 mg Clopidogrel Bisulfate (Plavix) 75 mg PO DAILY [facility] Last Admin: 01/22/19 08:11 Dose: 75 mg Ergocalciferol (Drisdol 50,000 Intl Units Cap) 1 cap PO Q7D [facility] Last Admin: 01/18/19 12:00 Dose: 1 cap Fluticasone Propionate (Flonase) 2 spr PRIYA DAILY [facility] Last Admin: 01/22/19 09:54 Dose: 2 spr Aztreonam 500 mg/ Sodium (Chloride) 50 mls @ 50 mls/hr IVPB Q12 [facility]; Protocol Last Admin: 01/22/19 11:47 Dose: 50 mls/hr Loratadine (Claritin) 10 mg PO DAILY [facility] Last Admin: 01/22/19 08:07 Dose: 10 mg Memantine (Namenda) 10 mg PO BID [facility] Last Admin: 01/22/19 08:11 Dose: 10 mg Mesalamine (Rowasa Enema) 4 gm RC HS [facility] Last Admin: 01/21/19 22:32 Dose: Not Given Metoprolol Tartrate (Lopressor) 50 mg PO Q12 [facility] Last Admin: 01/22/19 08:11 Dose: 50 mg Pantoprazole Sodium (Protonix Ec Tab) 40 mg PO DAILY [facility] Last Admin: 01/22/19 08:08 Dose: 40 mg Sitagliptin Phosphate (Januvia) 25 mg PO DAILY [facility] Last Admin: 01/22/19 08:07 Dose: 25 mg Tamsulosin HCl (Flomax) 0.4 mg PO DAILY [facility] Last Admin: 01/22/19 08:06 Dose: 0.4 mg - Labs Labs: 01/22/19 08:50 01/22/19 08:40 PT 13.8 Seconds (9.8-13.1) H 01/15/19 17:56 INR 1.2 01/15/19 17:56 APTT 29.5 Seconds (25.6-37.1) 01/15/19 17:56 - Constitutional Appears: Non-toxic - Head Exam Head Exam: ATRAUMATIC, NORMOCEPHALIC - Eye Exam Additional comments: Conjunctiva pale. Sclera anicteric - ENT Exam ENT Exam: Mucous Membranes Dry - Neck Exam Additional comments: No jugular venous distension - Respiratory Exam Respiratory Exam: NORMAL BREATHING PATTERN Additional comments: Lungs clear - Cardiovascular Exam Cardiovascular Exam: REGULAR RHYTHM, +S1, +S2 Additional comments: No gallops - GI/Abdominal Exam GI & Abdominal Exam: Soft Additional comments: Mild diffuse tenderness. - Extremities Exam Additional comments: No edema Assessment and Plan - Assessment and Plan (Free Text) Assessment: CKD, Solitary Rt kidney Renal function is stable. Hypernatremia scondary ti intravascular volume depletion/ from diarrhea/GI bleed Diarrhea/ GI bleed Anemia Plan: Continue with IV with D5W &NS Urine C&S Labs in am
[2019-01-23 06:18] LABS: HEMOGLOBIN 8.1 g/dL (12.0-18.0); MEAN CELL VOLUME 76.6 fl (80.0-94.0); MEAN CORPUSCULAR HEMOGLOBIN 24.4 pg (27.0-31.0); MEAN CORPUSCULAR HGB CONC 31.9 g/dL (33.0-37.0); RBC 3.33 Mil/uL (4.40-5.90); RED CELL DISTRIBUTION WIDTH 17.3 % (11.5-14.5); WHITE BLOOD COUNT 11.2 K/uL (4.8-10.8)
[2019-01-23 06:35] LABS: ALB/GLOB RATIO 0.8 (1.0-2.1); ALBUMIN 2.6 g/dL (3.5-5.0); CALCIUM 8.3 mg/dL (8.4-10.2)
[2019-01-23] MEDS: Pantoprazole 40 mg EC Tab PO SCH (08:10)
--- NOTE | 2019-01-23 09:41 | CP.PCM.PN ---
Subjective - Date & Time of Evaluation Date of Evaluation: 01/23/19 Time of Evaluation: 09:30 - Subjective Subjective: C/o abdominal discomfort. Objective - Vital Signs/Intake and Output Vital Signs (last 24 hours): Temp Pulse Resp BP Pulse Ox 98 F 68 18 110/66 98 01/23/19 08:17 01/23/19 08:17 01/23/19 08:17 01/23/19 08:17 01/23/19 08:17 - Medications Medications: Current Medications Amlodipine Besylate (Norvasc) 10 mg PO DAILY [facility] Last Admin: 01/23/19 08:09 Dose: 10 mg Aspirin (Aspirin Chewable) 81 mg PO DAILY [facility] Last Admin: 01/23/19 08:10 Dose: 81 mg Atorvastatin Calcium (Lipitor) 40 mg PO DAILY [facility] Last Admin: 01/23/19 08:10 Dose: 40 mg Clopidogrel Bisulfate (Plavix) 75 mg PO DAILY [facility] Last Admin: 01/23/19 08:10 Dose: 75 mg Ergocalciferol (Drisdol 50,000 Intl Units Cap) 1 cap PO Q7D [facility] Last Admin: 01/18/19 12:00 Dose: 1 cap Fluticasone Propionate (Flonase) 2 spr PRIYA DAILY [facility] Last Admin: 01/23/19 08:13 Dose: 2 spr Aztreonam 500 mg/ Sodium (Chloride) 50 mls @ 50 mls/hr IVPB Q12 [facility]; Protocol Last Admin: 01/23/19 09:25 Dose: 50 mls/hr Dextrose/Sodium Chloride (Dextrose 5%-0.45% Ns 500 Ml) 1,000 mls @ 75 mls/hr IV .[id number] [facility] Stop: 01/24/19 09:32 Loratadine (Claritin) 10 mg PO DAILY [facility] Last Admin: 01/23/19 08:10 Dose: 10 mg Memantine (Namenda) 10 mg PO BID [facility] Last Admin: 01/23/19 08:10 Dose: 10 mg Mesalamine (Rowasa Enema) 4 gm RC HS [facility] Last Admin: 01/22/19 21:13 Dose: Not Given Metoprolol Tartrate (Lopressor) 50 mg PO Q12 [facility] Last Admin: 01/23/19 08:07 Dose: 50 mg Pantoprazole Sodium (Protonix Ec Tab) 40 mg PO DAILY [facility] Last Admin: 01/23/19 08:10 Dose: 40 mg Sitagliptin Phosphate (Januvia) 25 mg PO DAILY [facility] Last Admin: 01/23/19 08:10 Dose: 25 mg Tamsulosin HCl (Flomax) 0.4 mg PO DAILY [facility] Last Admin: 01/23/19 08:10 Dose: 0.4 mg - Labs Labs: 01/23/19 05:25 01/23/19 05:25 PT 13.8 Seconds (9.8-13.1) H 01/15/19 17:56 INR 1.2 01/15/19 17:56 APTT 29.5 Seconds (25.6-37.1) 01/15/19 17:56 - Constitutional Appears: No Acute Distress - Head Exam Head Exam: ATRAUMATIC, NORMOCEPHALIC - Eye Exam Additional comments: No icterus - Neck Exam Additional comments: No jugular venous distension - Respiratory Exam Respiratory Exam: NORMAL BREATHING PATTERN Additional comments: Lungs clear - Cardiovascular Exam Cardiovascular Exam: REGULAR RHYTHM - GI/Abdominal Exam Additional comments: Mild diffuse tenderess - Extremities Exam Additional comments: Trace edema of Rt leg. Lt leg no edema Assessment and Plan - Assessment and Plan (Free Text) Assessment: Chronic kidney dis. Stage 1V Solitary Rt kidney Renal function remains stable Hypernatremia secondary to intravascular volume depletion/ Sodium only slightly better today. Anemia due to GI blood loss Plan: Suggest to increase D5W&1/2 NS to 75 cc/hr Monitor renal function Avoid NSAIDS
--- NOTE | 2019-01-23 10:24 | CP.PCM.PN ---
Subjective - Date & Time of Evaluation Date of Evaluation: 01/23/19 Time of Evaluation: 07:00 - Subjective Subjective: Patient seen and examined this morning at bedside with Dr. Mathew. Patient is alert and awake, NAD, no acute event overnight. No complaints. Objective - Vital Signs/Intake and Output Vital Signs (last 24 hours): Temp Pulse Resp BP Pulse Ox 98 F 68 18 110/66 98 01/23/19 08:17 01/23/19 08:17 01/23/19 08:17 01/23/19 08:17 01/23/19 08:17 - Medications Medications: Current Medications Amlodipine Besylate (Norvasc) 10 mg PO DAILY [facility] Last Admin: 01/23/19 08:09 Dose: 10 mg Aspirin (Aspirin Chewable) 81 mg PO DAILY [facility] Last Admin: 01/23/19 08:10 Dose: 81 mg Atorvastatin Calcium (Lipitor) 40 mg PO DAILY [facility] Last Admin: 01/23/19 08:10 Dose: 40 mg Clopidogrel Bisulfate (Plavix) 75 mg PO DAILY [facility] Last Admin: 01/23/19 08:10 Dose: 75 mg Ergocalciferol (Drisdol 50,000 Intl Units Cap) 1 cap PO Q7D [facility] Last Admin: 01/18/19 12:00 Dose: 1 cap Fluticasone Propionate (Flonase) 2 spr PRIYA DAILY [facility] Last Admin: 01/23/19 08:13 Dose: 2 spr Aztreonam 500 mg/ Sodium (Chloride) 50 mls @ 50 mls/hr IVPB Q12 [facility]; Protocol Last Admin: 01/22/19 21:02 Dose: 50 mls/hr Loratadine (Claritin) 10 mg PO DAILY [facility] Last Admin: 01/23/19 08:10 Dose: 10 mg Memantine (Namenda) 10 mg PO BID [facility] Last Admin: 01/23/19 08:10 Dose: 10 mg Mesalamine (Rowasa Enema) 4 gm RC HS [facility] Last Admin: 01/22/19 21:13 Dose: Not Given Metoprolol Tartrate (Lopressor) 50 mg PO Q12 [facility] Last Admin: 01/23/19 08:07 Dose: 50 mg Pantoprazole Sodium (Protonix Ec Tab) 40 mg PO DAILY [facility] Last Admin: 01/23/19 08:10 Dose: 40 mg Sitagliptin Phosphate (Januvia) 25 mg PO DAILY [facility] Last Admin: 01/23/19 08:10 Dose: 25 mg Tamsulosin HCl (Flomax) 0.4 mg PO DAILY [facility] Last Admin: 01/23/19 08:10 Dose: 0.4 mg - Labs Labs: 01/23/19 05:25 01/23/19 05:25 PT 13.8 Seconds (9.8-13.1) H 01/15/19 17:56 INR 1.2 01/15/19 17:56 APTT 29.5 Seconds (25.6-37.1) 01/15/19 17:56 - Constitutional Appears: No Acute Distress - Head Exam Head Exam: NORMAL INSPECTION - Eye Exam Eye Exam: Normal appearance - ENT Exam ENT Exam: Mucous Membranes Moist - Respiratory Exam Respiratory Exam: Clear to Ausculation Bilateral - Cardiovascular Exam Cardiovascular Exam: REGULAR RHYTHM - GI/Abdominal Exam GI & Abdominal Exam: Soft, Normal Bowel Sounds. absent: Guarding - Extremities Exam Extremities Exam: Normal Inspection - Neurological Exam Neurological Exam: Alert, Oriented x3 - Psychiatric Exam Psychiatric exam: Flat Affect - Skin Skin Exam: Normal Color Assessment and Plan - Assessment and Plan (Free Text) Assessment: 78 y/o male with PMH of Ulcerative colitis, HTN, Bladder Ca, Dementia, predi abetes and CVA in 2007 admitted to [facility] for evaluation and treatment of chronic bloody diarrhea and acute R abdominal pain which has been improving and subsequentyl encoutered a new CVA, JESUS, and Hypernatremia. Pending dispo to subacute rehab. #Acute CVA #GI Bleed, stable #UC #AI #Hypernatremia #Hypokalemia - Nephrology following; JESUS 2/2 to volume depletion in setting of recent Diarrhea/GI bleed. IV hydration with D5W and NS. Slight improvement of Na today. - Replete potassium as needed - Hg stable 8.1; Monitor H/H - Dual antiplatelet therapy and statin for stroke prevention - Mesalamine for UC - Management for chronic medical conditions as ordered Discussed case with Dr. Priyanka Hsu, PGY2
[2019-01-23] MEDS ORDERED: Potassium Chloride 20 mEq ER Tab PO ONE (10:45)
[2019-01-24 00:38] VITALS: RESP 18
[2019-01-24 06:20] LABS: HEMOGLOBIN 8.2 g/dL (12.0-18.0); MEAN CELL VOLUME 76.6 fl (80.0-94.0); MEAN CORPUSCULAR HEMOGLOBIN 24.7 pg (27.0-31.0); MEAN CORPUSCULAR HGB CONC 32.2 g/dL (33.0-37.0); RBC 3.32 Mil/uL (4.40-5.90); RED CELL DISTRIBUTION WIDTH 17.2 % (11.5-14.5)
[2019-01-24 06:42] LABS: CALCIUM 8.1 mg/dL (8.4-10.2)
[2019-01-24] MEDS: Pantoprazole 40 mg EC Tab PO SCH (09:05)
--- NOTE | 2019-01-24 11:01 | CP.PCM.DIS ---
Provider - Provider Date of Admission: 01/15/19 18:50 Attending physician: Gatito Mathew MD Consults: 01/15/19 18:40 Gastroenterology Consult Stat Comment: Consulting Provider: Austin Calvert Consulting Physician: Austin Calvert Reason for Consult: Lower GI bleed 01/15/19 18:52 Urology Consult Stat Comment: Consulting Provider: Braulio Ruano Jr. Consulting Physician: Braulio Ruano Jr. Reason for Consult: bladder cancer 01/16/19 20:57 Neurology Consult Stat Comment: Consulting Provider: Davon Mathews Consulting Physician: Davon Mathews Reason for Consult: code stroke, NIHSS 5; left sided weakness since this AM 01/18/19 12:16 Cardiology Consult Routine Comment: Consulting Provider: Araceli Solano Consulting Physician: Araceli Solano Reason for Consult: S/p CVA, eval for Loop recorder 01/21/19 09:54 Nephrology Consult Routine Comment: Consulting Provider: La Boone Consulting Physician: La Boone Reason for Consult: arf ; hypernatremia, cva Time Spent in preparation of Discharge (in minutes): 35 Diagnosis - Discharge Diagnosis (1) Hypernatremia Status: Resolved (2) Acute blood loss anemia Status: Resolved (3) Ulcerative colitis, chronic Status: Chronic (4) Abdominal pain Status: Resolved (5) GI bleed Status: Resolved (6) Ischemic stroke Status: Resolved Hospital Course - Lab Results Lab Results: Micro Results 01/17/19 05:53 Urine,Clean Catch Urine Culture - Final Corynebacterium Species Most Recent Lab Values WBC 10.0 K/uL (4.8-10.8) 01/24/19 04:20 RBC 3.32 Mil/uL (4.40-5.90) L 01/24/19 04:20 Hgb 8.2 g/dL (12.0-18.0) L 01/24/19 04:20 Hct 25.4 % (35.0-51.0) L 01/24/19 04:20 MCV 76.6 fl (80.0-94.0) L 01/24/19 04:20 MCH 24.7 pg (27.0-31.0) L 01/24/19 04:20 MCHC 32.2 g/dL (33.0-37.0) L 01/24/19 04:20 RDW 17.2 % (11.5-14.5) H 01/24/19 04:20 Plt Count 456 K/uL (130-400) H 01/24/19 04:20 MPV 8.6 fl (7.2-11.7) 01/18/19 05:20 Neut % (Auto) 55.6 % (50.0-75.0) 01/18/19 05:20 Lymph % (Auto) 33.3 % (20.0-40.0) 01/18/19 05:20 [place] % (Auto) 9.5 % (0.0-10.0) 01/18/19 05:20 Eos % (Auto) 1.3 % (0.0-4.0) 01/18/19 05:20 Baso % (Auto) 0.3 % (0.0-2.0) 01/18/19 05:20 Neut # (Auto) 7.2 K/uL (1.8-7.0) H 01/18/19 05:20 Lymph # (Auto) 4.3 K/uL (1.0-4.3) 01/18/19 05:20 [place] # (Auto) 1.2 K/uL (0.0-0.8) H 01/18/19 05:20 Eos # (Auto) 0.2 K/uL (0.0-0.7) 01/18/19 05:20 Baso # (Auto) 0.0 K/uL (0.0-0.2) 01/18/19 05:20 ESR 62 mm/hr (0-20) H 01/17/19 11:00 PT 13.8 Seconds (9.8-13.1) H 01/15/19 17:56 INR 1.2 01/15/19 17:56 APTT 29.5 Seconds (25.6-37.1) 01/15/19 17:56 Sodium 148 mmol/l (132-148) 01/24/19 04:20 Potassium 3.6 MMOL/L (3.6-5.0) 01/24/19 04:20 Chloride 121 mmol/L (98-107) H 01/24/19 04:20 Carbon Dioxide 20 mmol/L (22-30) L 01/24/19 04:20 Anion Gap 11 (10-20) 01/24/19 04:20 BUN 22 mg/dl (9-20) H 01/24/19 04:20 Creatinine 2.0 mg/dl (0.8-1.5) H 01/24/19 04:20 Est GFR ( Amer) 39 01/24/19 04:20 Est GFR (Non-Af Amer) 32 01/24/19 04:20 POC Glucose (mg/dL) 120 mg/dL (65-110) H 01/24/19 05:49 Random Glucose 106 mg/dL (75-110) 01/24/19 04:20 Hemoglobin A1c 6.1 % (4.2-6.5) 01/16/19 23:59 Calcium 8.1 mg/dL (8.4-10.2) L 01/24/19 04:20 Total Bilirubin 0.3 mg/dl (0.2-1.3) 01/23/19 05:25 AST 20 U/L (17-59) 01/23/19 05:25 ALT 16 U/L (21-72) L 01/23/19 05:25 Alkaline Phosphatase 78 U/L (38-126) 01/23/19 05:25 NT-Pro-B Natriuret Pep 1810 pg/ml (0-900) H 01/15/19 17:56 Total Protein 6.0 G/DL (6.3-8.2) L 01/23/19 05:25 Albumin 2.6 g/dL (3.5-5.0) L 01/23/19 05:25 Globulin 3.3 gm/dL (2.2-3.9) 01/23/19 05:25 Albumin/Globulin Ratio 0.8 (1.0-2.1) L 01/23/19 05:25 Triglycerides 144 mg/DL (0-149) D 01/16/19 23:59 Cholesterol 126 mg/dL (0-199) 01/16/19 23:59 LDL Cholesterol Direct 63 mg/dL (0-129) 01/16/19 23:59 HDL Cholesterol 21 MG/DL (30-70) L 01/16/19 23:59 Vitamin B12 436 pg/mL (239-931) 01/17/19 11:00 25-OH Vitamin D Total < 12.8 NG/ML (30.0-100.0) L 01/17/19 11:00 Folate 7.3 ng/mL 01/17/19 11:00 Free T4 1.21 ng/dL (0.78-2.19) 01/18/19 05:20 TSH 3rd Generation 0.63 mIU/ML (0.46-4.68) 01/18/19 05:20 Urine Color An (YELLOW) 01/21/19 18:42 Urine Clarity Slighty-cloudy (Clear) 01/21/19 18:42 Urine pH 5.0 (5.0-8.0) 01/21/19 18:42 Ur Specific [place] 1.017 (1.003-1.030) 01/21/19 18:42 Urine Protein 30 mg/dL (NEGATIVE) 01/21/19 18:42 Urine Glucose (UA) Neg mg/dL (NEGATIVE) 01/21/19 18:42 Urine Ketones Negative mg/dL (NEGATIVE) 01/21/19 18:42 Urine Blood Negative (NEGATIVE) 01/21/19 18:42 Urine Nitrate Negative (NEGATIVE) 01/21/19 18:42 Urine Bilirubin Negative (NEGATIVE) 01/21/19 18:42 Urine Urobilinogen 0.2-1.0 mg/dL (0.2-1.0) 18 18:42 Ur Leukocyte Esterase Mod Ab/uL (Negative) 01/21/19 18:42 Urine RBC (Auto) 3 /hpf (0-3) 01/21/19 18:42 Urine Microscopic WBC 31 /hpf (0-5) H 01/21/19 18:42 Ur Squamous Epith Cells 1 /hpf (0-5) 01/21/19 18:42 Ur Transition Epith Cell 1 /hpf (0-3) 01/17/19 05:53 Urine Bacteria Rare (<OCC) 01/21/19 18:42 Hyaline Casts 3-5 /hpf (0-2) H 01/21/19 18:42 Ur Random Creatinine 137.2 mg/dL 01/21/19 18:42 U Random Total Protein 44 mg/L 01/21/19 18:42 Ur Random Sodium 18 meq/L 01/21/19 18:42 Ur Random Potassium 25.7 mmol/L 01/21/19 18:42 Urine Chloride 29 mmol/L (32-290) L 01/21/19 19:36 Stool Occult Blood Positive (NEGATIVE) H 01/15/19 23:46 C. difficile Ag & Toxin Negative (NEGATIVE) 01/17/19 01:10 S.cerevisiae IgG Ab 35.1 U (<=20.0) H 01/17/19 11:00 Blood Type O POSITIVE 01/15/19 17:56 Antibody Screen Negative 01/15/19 17:56 BBK History Checked Patient has bt 01/15/19 17:56 - Hospital Course Hospital Course: 78 y/o male with PMH of Ulcerative colitis, HTN, Bladder Ca, Dementia, prediabetes and CVA in 2007 admitted to [facility] for evaluation and treatment of acute bloody diarrhea with R abdominal pain. CT evidence of left sided colitis and he was treated He was treated with Cipro and Flagyl for colitis and his GI bleed eventually resolved though diarrhea as been persistent which is chronic (Cdiff negative). He was found to have low hemoglobin levels that remained stable between 8-9. Subsequently during this admission he suffered an acute ischemic stroke for he was evaluated by neurology and cardiology and treated with dual antiplatelet therapy. He also developed acute kidney injury and hypernatremia which was resolved with IV fluid hydrations under management of junior analyst. Pt was evaluated by PT and will be sent to subacute rehab for rehabilitation. #Acute CVA, resolved #GI Bleed, resolved #UC, chronic #JESUS on CKD, resolved #Hypernatremi, resolved #Hypokalemia, resolved Discharge: As per neurology, will continue ASA and Plavix for 21 days (received for 7 days so far), then Plavix 75mg only. Continue Statin. Will discharge on 14 days of ASA and 30 days supply of Plavix. Can f/u outpatient with cardiology for loop recorder as per neuro. Discharge Exam - Head Exam Head Exam: NORMAL INSPECTION - Eye Exam Eye Exam: Normal appearance - ENT Exam ENT Exam: Mucous Membranes Moist - Respiratory Exam Respiratory Exam: Clear to PA & Lateral - Cardiovascular Exam Cardiovascular Exam: REGULAR RHYTHM - GI/Abdominal Exam GI & Abdominal Exam: Normal Bowel Sounds - Neurological Exam Neurological exam: Alert, Oriented x3 - Psychiatric Exam Psychiatric exam: Normal Affect - Skin Skin Exam: Normal Color Discharge Plan - Follow Up Plan Condition: GUARDED Disposition: HOME/ ROUTINE Instructions: Gastrointestinal Bleeding (DC) Additional Instructions: follow up with primary MD and GI doctor 1 week Referrals: Braulio Ruano Jr., MD [Staff Provider] - Mirian Roberson MD [Family Provider] - Austin Calvert MD [Staff Provider] -
[2019-01-24 12:17] VITALS: BP 120/67; PULSE 65; TEMP 97.7; O2SAT 96
--- NOTE | 2019-01-24 13:11 | CP.PCM.PN ---
Subjective - Date & Time of Evaluation Date of Evaluation: 01/24/19 Time of Evaluation: 11:45 - Subjective Subjective: Appears comfortable. States that he vpmited once which was saliva. Objective - Vital Signs/Intake and Output Vital Signs (last 24 hours): Temp Pulse Resp BP Pulse Ox 97.7 F 65 18 120/67 96 01/24/19 12:16 01/24/19 12:16 01/24/19 12:16 01/24/19 12:16 01/24/19 12:16 - Labs Labs: 01/24/19 04:20 01/24/19 04:20 PT 13.8 Seconds (9.8-13.1) H 01/15/19 17:56 INR 1.2 01/15/19 17:56 APTT 29.5 Seconds (25.6-37.1) 01/15/19 17:56 - Constitutional Appears: No Acute Distress - Eye Exam Eye Exam: Normal appearance - ENT Exam ENT Exam: Mucous Membranes Moist - Neck Exam Additional comments: No jugular venous distension - Respiratory Exam Respiratory Exam: NORMAL BREATHING PATTERN Additional comments: Lungs clear - Cardiovascular Exam Cardiovascular Exam: REGULAR RHYTHM - GI/Abdominal Exam Additional comments: Slightly distended No guarding or rebound - Exam Additional comments: No ECC Assessment and Plan - Assessment and Plan (Free Text) Assessment: CKD Solitary Rt kidney Renal function is stable' Hypernatremia sec to dehydration. Ser Sodium is improving GI bleed Plan: Continue with IVfs Encourage PO fluid intake. Monitor Creat & ser. Sodium
== END 2019-01-24 12:42 | disposition home health service (06) | DRG 385 ==
LOC: H.ER 16:37 → H.ERHOLD 18:50 → H.MEDSURG1 23:59 → H.TEL 01-16 21:43
PROVIDERS: ADMIT Internal Medicine; ATTEND Internal Medicine
DX: K51.511 Left sided colitis with rectal bleeding (principal); I63.411 Cerebral infarction due to embolism of right middle cerebral artery; D62 Acute posthemorrhagic anemia; N17.9 Acute kidney failure, unspecified; G81.94 Hemiplegia, unspecified affecting left nondominant side; E87.0 Hyperosmolality and hypernatremia; E87.6 Hypokalemia; K52.89 Other specified noninfective gastroenteritis and colitis; E86.0 Dehydration; N18.9 Chronic kidney disease, unspecified; I12.9 Hypertensive chronic kidney disease with stage 1 through stage 4 chronic kidney disease, or unspecified chronic kidney disease; F03.90 Unspecified dementia, unspecified severity, without behavioral disturbance, psychotic disturbance, mood disturbance, and anxiety; E11.22 Type 2 diabetes mellitus with diabetic chronic kidney disease; E78.5 Hyperlipidemia, unspecified; E78.00 Pure hypercholesterolemia, unspecified; K21.9 Gastro-esophageal reflux disease without esophagitis; Z85.51 Personal history of malignant neoplasm of bladder; Z90.5 Acquired absence of kidney; Z86.73 Personal history of transient ischemic attack (TIA), and cerebral infarction without residual deficits; Z79.84 Long term (current) use of oral hypoglycemic drugs; Z79.02 Long term (current) use of antithrombotics/antiplatelets; Z79.82 Long term (current) use of aspirin; Z88.0 Allergy status to penicillin

== ENCOUNTER 2019-01-18 16:13 | Inpatient (IN) | payer MEDICARE, MEDICAID ==
[2019-01-24 12:52] VITALS: BMI 25.5
--- NOTE | 2019-01-24 17:40 | PCM.OPOC ---
Physiatry Overall Plan of Care - Overall Plan of Care Estimated Length of Stay in Weeks: 3 Rehab Impairment: Mobility, Gait, Cognition, Speech, Balance, Coordination Etiologic Diagnosis: Cerebrovascular Accident Rehab/Medical Prognosis: Fair - Anticipated Interventions Physical Therapy:: Yes Number of Hours: 1.5 Number of times per week: 6 Number of Week(s) Duration: 3 Occupational Therapy:: Yes Number of Hours: 1.5 Number of times per week: 6 Number of Week(s) Duration: 3 Speech Therapy:: Yes Number of Hours: 1 Number of times per week: 5 Number of Week(s) Duration: 3 Recreational Therapy:: Yes Number of Hours: 1 Number of times per week: 5 Number of Week(s) Duration: 3 Other Anticipated Intervention:: No - Therapy Goals Bed Mobility: Contact Guard Ambulation: Contact Guard Functional Positional Changes:: Contact Guard - Functional Status Prior to Admission: Independent [employer] Current Status: Mod A - Functional Outcomes Functional Outcomes: Pending treatment - Discharge Plan Identification of Barriers to Discharge: Home Situation Discharge Destination: Home
--- NOTE | 2019-01-24 17:42 | CP.PCM.CON ---
History of Present Illness - History of Present Illness History of Present Illness: Dr Valero PMR consultation on Rodri Loya, born 1940 who has been admitted to [facility] acute inpatient rehabilitation. Had GI bleed and abdominal distention. 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 Right hand dominant. Previously independent. Review of Systems - Constitutional Constitutional: absent: Chills - EENT Ears: absent: Ear Pain Nose/Mouth/Throat: absent: Nasal Congestion - Cardiovascular Cardiovascular: absent: Chest Pain - Respiratory Respiratory: absent: Cough, Dyspnea - Gastrointestinal Gastrointestinal: Bloating. absent: Belching - Musculoskeletal Musculoskeletal: absent: Back Pain - Neurological Neurological: Abnormal Gait. absent: Abnormal Movements Past Patient History - Past Medical History & Family History Past Medical History?: Yes - Past Social History Smoking Status: Former Smoker Alcohol: None Drugs: Denies Home Situation {Lives}: With Family (2nd floor) - CARDIAC Hx Cardiac Disorders: Yes Hx Hypertension: Yes - PULMONARY Hx Respiratory Disorders: No - NEUROLOGICAL Hx Neurological Disorder: Yes HX Cerebrovascular Accident: Yes (resolved) Hx Dementia: Yes - HEENT Hx HEENT Problems: No - RENAL Hx Chronic Kidney Disease: No - ENDOCRINE/METABOLIC Hx Endocrine Disorders: Yes Hx Diabetes Mellitus Type 2: Yes - HEMATOLOGICAL/ONCOLOGICAL Hx Blood Disorders: Yes Hx Anemia: Yes Hx Blood Transfusions: Yes (long time) Hx Blood Transfusion Reaction: No Hx Cancer: Yes (BLADDER CANCER) - MUSCULOSKELETAL/RHEUMATOLOGICAL Hx Musculoskeletal Disorders: Yes Hx Falls: Yes (4 months) Hx Gout: Yes Hx Unsteady Gait: Yes (post CVA) - GASTROINTESTINAL Hx Gastrointestinal Disorders: Yes Hx Colitis: Yes (chronic) Hx Gastroesophageal Reflux: Yes HX Swallowing Problems: Yes (current complaint) - GENITOURINARY/GYNECOLOGICAL Hx Genitourinary Disorders: Yes Hx Bladder Cancer: Yes Hx Hematuria: Yes Other/Comment: HX: URINARY FREQUENCY - PSYCHIATRIC Hx Psychophysiologic Disorder: No Hx Substance Use: No - SURGICAL HISTORY Hx Surgeries: Yes Other/Comment: HX: BLADDER CANCER TURBT. HX: NEPHROURETERECTOMY 2014. HX: CYSTOSCOPY WITH BLADDER BIOPSY AND FULGURATION(08/20/18) - ANESTHESIA Hx Anesthesia: Yes Hx Anesthesia Reactions: No Hx Malignant Hyperthermia: No Has any member of the family had a problem w/ anesthesia?: No Meds Allergies/Adverse Reactions: Allergies Allergy/AdvReac Type Severity Reaction Status Date / Time Penicillins Allergy RASH Verified 01/15/19 16:41 - Medications Medications: Current Medications Acetaminophen (Tylenol 325mg Tab) 325 mg PO Q6 PRN PRN Reason: Headache Amlodipine Besylate (Norvasc) 10 mg PO DAILY [facility] Aspirin (Aspirin Chewable) 81 mg PO DAILY [facility] Atorvastatin Calcium (Lipitor) 40 mg PO DAILY [facility] Clopidogrel Bisulfate (Plavix) 75 mg PO DAILY [facility] Ergocalciferol (Drisdol 50,000 Intl Units Cap) 1 cap PO FRI [facility] Fluticasone Propionate (Flonase) 2 spr PRIYA DAILY [facility] Aztreonam 500 mg/ Sodium (Chloride) 50 mls @ 50 mls/hr IVPB Q12 [facility] Loratadine (Claritin) 10 mg PO DAILY [facility] Memantine (Namenda) 10 mg PO BID [facility] Last Admin: 01/24/19 17:08 Dose: 10 mg Mesalamine (Rowasa Enema) 4 gm RC HS [facility] Metoprolol Tartrate (Lopressor) 50 mg PO Q12 [facility] Pantoprazole Sodium (Protonix Ec Tab) 40 mg PO DAILY [facility] Sitagliptin Phosphate (Januvia) 25 mg PO DAILY [facility] Tamsulosin HCl (Flomax) 0.4 mg PO DAILY [facility] Physical Exam - Constitutional Appears: Non-toxic - Head Exam Head Exam: ATRAUMATIC, NORMAL INSPECTION, NORMOCEPHALIC - Eye Exam Eye Exam: EOMI - ENT Exam ENT Exam: Mucous Membranes Moist - Respiratory Exam Respiratory Exam: NORMAL BREATHING PATTERN - Cardiovascular Exam Cardiovascular Exam: REGULAR RHYTHM - GI/Abdominal Exam GI & Abdominal Exam: Distended (+ tympany). absent: Guarding - Extremities Exam Extremities exam: Negative for: calf tenderness, joint swelling - Neurological Exam Neurological exam: Alert - Psychiatric Exam Psychiatric exam: Flat Affect - Skin Skin Exam: Warm Results - Vital Signs Recent Vital Signs: Last Vital Signs Temp Pulse 60 01/24/19 15:38 Resp 20 01/24/19 13:21 BP Pulse Ox 97 01/24/19 15:38 Assessment & Plan - Assessment and Plan (Free Text) Assessment: Patient with seeming dementia to some degree + abdominal distension but no tenderness no calf tenderness PT/OT to continue to help increase functional independence Team conference for d/c planning Pain: controlled Vascular: no evidence of DVT GI: No evidence of constipation or diarrhea. + distension Patient is an excellent acute rehabilitation candidate and will have focused speech, PT, OT and recreational therapy to help facilitate a safe and appro priate d/c plan
[2019-01-24] MEDS ORDERED: Aztreonam 500 mg Inj IVPB SCH (21:00)
[2019-01-24 21:22] LABS: SQUAMOUS EPITHIAL 1 /hpf (0-5); URINE BACTERIA RARE (<OCC); URINE BILIRUBIN NEGATIVE (NEGATIVE); URINE BLOOD SMALL (NEGATIVE); URINE CLARITY SLIGHTY-CLOUDY (Clear); URINE COLOR YELLOW (YELLOW); URINE GLUCOSE (UA) NEG (NEGATIVE); URINE HYALINE CAST 0-2 /hpf (0-2); URINE LEUKOCYTE ESTERASE SMALL Leu/uL (Negative); URINE PROTEIN 30 mg/dL (NEGATIVE); URINE UROBILINOGEN 0.2-1.0 mg/dL (0.2-1.0)
[2019-01-25 06:34] LABS: BASO % 0.3 % (0.0-2.0); EOS # 0.2 K/uL (0.0-0.7); EOS % 1.5 % (0.0-4.0); HEMOGLOBIN 7.9 g/dL (12.0-18.0); LYMPH # 3.1 K/uL (1.0-4.3); LYMPH % 29.9 % (20.0-40.0); MEAN CELL VOLUME 75.5 fl (80.0-94.0); MEAN CORPUSCULAR HEMOGLOBIN 24.5 pg (27.0-31.0); MEAN CORPUSCULAR HGB CONC 32.5 g/dL (33.0-37.0); MEAN PLATELET VOLUME 8.7 fl (7.2-11.7); MONO # 0.7 K/uL (0.0-0.8); MONO % 7.1 % (0.0-10.0); NEUT # 6.3 K/uL (1.8-7.0); NEUT % 61.2 % (50.0-75.0); NRBC % 0.5 % (0.0-0.0); RBC 3.21 Mil/uL (4.40-5.90); RED CELL DISTRIBUTION WIDTH 17.2 % (11.5-14.5); WHITE BLOOD COUNT 10.3 K/uL (4.8-10.8)
[2019-01-25 06:42] LABS: CALCIUM 8.4 mg/dL (8.4-10.2)
[2019-01-25] MEDS ORDERED: Potassium Chloride 20 mEq ER Tab PO ONE (08:32)
[2019-01-25] MEDS: Pantoprazole 40 mg EC Tab PO SCH (08:47)
[2019-01-25] MEDS: Ergocalciferol 50,000 Intl Units Cap PO SCH (08:48)
[2019-01-25] MEDS ORDERED: Alum-Mag Hydrox-Simethicone Susp (30 mL) PO ONE (09:31)
[2019-01-25] MEDS: Sodium Chloride 0.45% 1,000 ML IV SCH ×2 (12:53→15:19)
--- NOTE | 2019-01-25 14:21 | CP.PCM.HP ---
<Maurice Hsu - Last Filed: 01/25/19 14:19> History of Present Illness - History of Present Illness History of Present Illness: 78 y/o male with PMH of Ulcerative colitis, HTN, Bladder Ca, Dementia, prediabetes and CVA in 2007 admitted to [facility] for evaluation and treatment of acute bloody diarrhea with R abdominal pain. CT evidence of left sided colitis and he was treated He was treated with Cipro and Flagyl for colitis and his GI bleed eventually resolved though diarrhea as been persistent which is chronic (Cdiff negative). He was found to have low hemoglobin levels that remained stable between 8-9. Subsequently during this admission he suffered an acute ischemic stroke for he was evaluated by neurology and cardiology and treated with dual antiplatelet therapy. He also developed acute kidney injury and hypernatremia which was resolved with IV fluid hydrations under management of ne phrologist. Pt was also noted to have UTI, was started on Azacatam and has been taking it for 5 days now. Pt is now being admitted to Acute Rehab for PT. PMD: Dr. Viv Ledezma urologist: Dr. Chua PMH: Ulcerative colitis, Hypotension, Bladder Ca, Dementia, prediabetes and CVA in 2007 PSH: Denies Allg: PNC SH: Denies alcohol, smoking or drug use SH: unknown Present on Admission - Present on Admission Any Indicators Present on Admission: No History of DVT/PE: No History of Uncontrolled Diabetes: No Urinary Catheter: No Decubitus Ulcer Present: No Past Patient History - Past Medical History & Family History Past Medical History?: Yes - Past Social History Smoking Status: Former Smoker Alcohol: None Drugs: Denies Home Situation {Lives}: With Family (2nd floor) - CARDIAC Hx Cardiac Disorders: Yes Hx Hypertension: Yes - PULMONARY Hx Respiratory Disorders: No - NEUROLOGICAL Hx Neurological Disorder: Yes HX Cerebrovascular Accident: Yes (resolved) Hx Dementia: Yes - HEENT Hx HEENT Problems: No - RENAL Hx Chronic Kidney Disease: No - ENDOCRINE/METABOLIC Hx Endocrine Disorders: Yes Hx Diabetes Mellitus Type 2: Yes - HEMATOLOGICAL/ONCOLOGICAL Hx Blood Disorders: Yes Hx Anemia: Yes Hx Blood Transfusions: Yes (long time) Hx Blood Transfusion Reaction: No Hx Cancer: Yes (BLADDER CANCER) - MUSCULOSKELETAL/RHEUMATOLOGICAL Hx Musculoskeletal Disorders: Yes Hx Falls: Yes (4 months) Hx Gout: Yes Hx Unsteady Gait: Yes (post CVA) - GASTROINTESTINAL Hx Gastrointestinal Disorders: Yes Hx Colitis: Yes (chronic) Hx Gastroesophageal Reflux: Yes HX Swallowing Problems: Yes (current complaint) - GENITOURINARY/GYNECOLOGICAL Hx Genitourinary Disorders: Yes Hx Bladder Cancer: Yes Hx Hematuria: Yes Other/Comment: HX: URINARY FREQUENCY - PSYCHIATRIC Hx Psychophysiologic Disorder: No Hx Substance Use: No - SURGICAL HISTORY Hx Surgeries: Yes Other/Comment: HX: BLADDER CANCER TURBT. HX: NEPHROURETERECTOMY 2014. HX: CYSTOSCOPY WITH BLADDER BIOPSY AND FULGURATION(08/20/18) - ANESTHESIA Hx Anesthesia: Yes Hx Anesthesia Reactions: No Hx Malignant Hyperthermia: No Has any member of the family had a problem w/ anesthesia?: No Meds Allergies/Adverse Reactions: Allergies Allergy/AdvReac Type Severity Reaction Status Date / Time Penicillins Allergy RASH Verified 01/15/19 16:41 Physical Exam - Constitutional Appears: No Acute Distress - Head Exam Head Exam: NORMOCEPHALIC - Eye Exam Eye Exam: Normal appearance - ENT Exam ENT Exam: Mucous Membranes Moist - Respiratory Exam Respiratory Exam: Clear to Auscultation Bilateral - Cardiovascular Exam Cardiovascular Exam: REGULAR RHYTHM - GI/Abdominal Exam GI & Abdominal Exam: Normal Bowel Sounds, Soft. absent: Distended, Tenderness - Neurological Exam Neurological exam: Alert, Oriented x3 - Skin Skin Exam: Normal Color Results - Vital Signs Recent Vital Signs: Last Vital Signs Temp 98.2 F 01/24/19 20:30 Pulse 64 01/24/19 20:44 Resp 20 01/24/19 20:30 BP 112/60 01/24/19 20:44 Pulse Ox 97 01/24/19 20:30 - Labs Result Diagrams: 01/25/19 05:15 01/25/19 05:15 Labs: Laboratory Results - last 24 hr 01/24/19 01/25/19 01/25/19 20:55 05:15 05:15 WBC 10.3 RBC 3.21 L Hgb 7.9 L Hct 24.2 L MCV 75.5 L MCH 24.5 L MCHC 32.5 L RDW 17.2 H Plt Count 434 H MPV 8.7 Neut % (Auto) 61.2 Lymph % (Auto) 29.9 [place] % (Auto) 7.1 Eos % (Auto) 1.5 Baso % (Auto) 0.3 Neut # (Auto) 6.3 Lymph # (Auto) 3.1 [place] # (Auto) 0.7 Eos # (Auto) 0.2 Baso # (Auto) 0.0 Sodium 147 Potassium 3.3 L Chloride 121 H Carbon Dioxide 19 L Anion Gap 10 BUN 20 Creatinine 2.0 H Est GFR ( Amer) 39 Est GFR (Non-Af Amer) 32 Random Glucose 84 Calcium 8.4 Urine Color Yellow Urine Clarity Slighty-cloudy Urine pH 6.0 Ur Specific [place] 1.015 Urine Protein 30 Urine Glucose (UA) Neg Urine Ketones Negative Urine Blood Small Urine Nitrate Negative Urine Bilirubin Negative Urine Urobilinogen 0.2-1.0 Ur Leukocyte Esterase Small Urine RBC (Auto) 4 H Urine Microscopic WBC 29 H Ur Squamous Epith Cells 1 Urine Bacteria Rare Hyaline Casts 0-2 Assessment & Plan - Assessment and Plan (Free Text) Assessment: 78 y/o male with PMH of Ulcerative colitis, HTN, Bladder Ca, Dementia, prediabetes and CVA in 2007 admitted to [facility] for evaluation and treatment of acute bloody diarrhea with R abdominal pain. CT evidence of left sided colitis and he was treated He was treated with Cipro and Flagyl for colitis and his GI bleed eventually resolved though diarrhea as been persistent which is chronic (Cdiff negative). He was found to have low hemoglobin levels that remained stable between 8-9. Subsequently during this admission he suffered an acute ischemic stroke for he was evaluated by neurology and cardiology and treated with dual antiplatelet therapy. He also developed acute kidney injury and hypernatremia which was resolved with IV fluid hydrations under management of psychotherapist. Pt was evaluated by PT and will be sent to subacute rehab for rehabilitation. #Acute CVA #GI Bleed #Borderline Hypotension #UC, chronic - Small clots of blood noted in stool yesterday, no BM today. Will monitor - Hg 7.9 - Will hold ASA and Plavix for now. Neurology consulted - BP borderline low 90-100's with +Orthostatic signs. 1L bolus given and started on maintenance fluids. PT held today. - Hold antihypertensive meds - GI Following - F/U am CBC - OT/PT/ST Discussed with Dr. Priyanka Hsu, PGY2 <Gatito Mtahew - Last Filed: 01/28/19 10:17> Results - Vital Signs Recent Vital Signs: Last Vital Signs Temp 98.6 F 01/28/19 09:23 Pulse 66 01/28/19 09:23 Resp 18 01/28/19 09:23 BP 124/57 L 01/28/19 09:23 Pulse Ox 96 01/28/19 09:23 - Labs Result Diagrams: 01/28/19 05:30 01/28/19 05:30 Labs: Laboratory Results - last 24 hr 01/28/19 01/28/19 05:30 05:30 WBC 8.5 RBC 3.17 L Hgb 7.8 L Hct 23.7 L MCV 74.9 L MCH 24.6 L MCHC 32.9 L RDW 17.2 H Plt Count 385 Sodium 143 Potassium 3.6 Chloride 118 H Carbon Dioxide 18 L Anion Gap 11 BUN 15 Creatinine 1.7 H Est GFR ( Amer) 47 Est GFR (Non-Af Amer) 39 Random Glucose 91 Calcium 8.0 L Total Bilirubin 0.4 AST 30 ALT 35 Alkaline Phosphatase 101 Total Protein 5.8 L Albumin 2.5 L Globulin 3.4 Albumin/Globulin Ratio 0.7 L Assessment & Plan - Assessment and Plan (Free Text) Assessment: Patient was personally seen and examined by me in rounds with residents. Available labs and diagnostic data reviewed. Case, Patient's condition and management plan discussed with residents in rounds. Agree with resident's progress note.
--- NOTE | 2019-01-25 15:44 | CP.PCM.CON ---
History of Present Illness - History of Present Illness History of Present Illness: Mr Rodri mcnulty is a 78 y/o male with Hx/o Lt nephrectomy, chronic kidney disease,Inflammatory bowel disease is tranferred to Acute Rehab from telemetry Unit. Renal consult is requested for f/u on CKD & Hypernatremia. While in the Ho sp Pt had an episode of lower GI bleed & since then his Hb islow. Pt had also developed hypernatremia with Ser Sodium level of 152. which has been improving with D5W IV fluids. Past Patient History - Past Medical History & Family History Past Medical History?: Yes - Past Social History Smoking Status: Former Smoker Alcohol: None Drugs: Denies Home Situation {Lives}: With Family (2nd floor) - CARDIAC Hx Cardiac Disorders: Yes Hx Hypertension: Yes - PULMONARY Hx Respiratory Disorders: No - NEUROLOGICAL Hx Neurological Disorder: Yes HX Cerebrovascular Accident: Yes (resolved) Hx Dementia: Yes - HEENT Hx HEENT Problems: No - RENAL Hx Chronic Kidney Disease: Yes (Lt nephrectomy.) - ENDOCRINE/METABOLIC Hx Endocrine Disorders: Yes Hx Diabetes Mellitus Type 2: Yes - HEMATOLOGICAL/ONCOLOGICAL Hx Blood Disorders: Yes Hx Anemia: Yes Hx Blood Transfusions: Yes (long time) Hx Blood Transfusion Reaction: No Hx Cancer: Yes (BLADDER CANCER) - MUSCULOSKELETAL/RHEUMATOLOGICAL Hx Musculoskeletal Disorders: Yes Hx Falls: Yes (4 months) Hx Gout: Yes Hx Unsteady Gait: Yes (post CVA) - GASTROINTESTINAL Hx Gastrointestinal Disorders: Yes Hx Colitis: Yes (chronic) Hx Gastroesophageal Reflux: Yes HX Swallowing Problems: Yes (current complaint) - GENITOURINARY/GYNECOLOGICAL Hx Genitourinary Disorders: Yes Hx Bladder Cancer: Yes Hx Hematuria: Yes Other/Comment: HX: URINARY FREQUENCY - PSYCHIATRIC Hx Psychophysiologic Disorder: No Hx Substance Use: No - SURGICAL HISTORY Hx Surgeries: Yes Other/Comment: HX: BLADDER CANCER TURBT. HX: NEPHROURETERECTOMY 2014. HX: CYSTOSCOPY WITH BLADDER BIOPSY AND FULGURATION(08/20/18) - ANESTHESIA Hx Anesthesia: Yes Hx Anesthesia Reactions: No Hx Malignant Hyperthermia: No Has any member of the family had a problem w/ anesthesia?: No Meds Allergies/Adverse Reactions: Allergies Allergy/AdvReac Type Severity Reaction Status Date / Time Penicillins Allergy RASH Verified 01/15/19 16:41 - Medications Medications: Current Medications Acetaminophen (Tylenol 325mg Tab) 325 mg PO Q6 PRN PRN Reason: Headache Amlodipine Besylate (Norvasc) 10 mg PO DAILY [facility] Last Admin: 01/25/19 11:06 Dose: Not Given Aspirin (Aspirin Chewable) 81 mg PO DAILY [facility] Last Admin: 01/25/19 08:48 Dose: 81 mg Atorvastatin Calcium (Lipitor) 40 mg PO DAILY [facility] Last Admin: 01/25/19 08:47 Dose: 40 mg Benzocaine/Menthol (Cepacol Sore Throat) 1 alysa PO Q3 PRN PRN Reason: Sore Throat Clopidogrel Bisulfate (Plavix) 75 mg PO DAILY [facility] Last Admin: 01/25/19 08:46 Dose: 75 mg Ergocalciferol (Drisdol 50,000 Intl Units Cap) 1 cap PO FRI [facility] Last Admin: 01/25/19 08:48 Dose: 1 cap Ferrous Sulfate (Feosol) 325 mg PO DAILY [facility] Last Admin: 01/25/19 11:01 Dose: 325 mg Fluticasone Propionate (Flonase) 2 spr PRIYA DAILY [facility] Last Admin: 01/25/19 08:47 Dose: 2 spr Aztreonam 500 mg/ Sodium (Chloride) 50 mls @ 50 mls/hr IVPB Q12 [facility] Last Admin: 01/25/19 08:50 Dose: 50 mls/hr Sodium Chloride (Sodium Chloride 0.45%) 1,000 mls @ 500 mls/hr IV .Q2H [facility] Stop: 01/25/19 16:29 Last Admin: 01/25/19 15:19 Dose: 500 mls/hr Potassium Chloride 20 meq/ (Sodium Chloride) 1,010 mls @ 100 mls/hr IV .Q10H6M [facility] Stop: 01/26/19 13:19 Loratadine (Claritin) 10 mg PO DAILY [facility] Last Admin: 01/25/19 08:48 Dose: 10 mg Memantine (Namenda) 10 mg PO BID [facility] Last Admin: 01/25/19 08:46 Dose: 10 mg Mesalamine (Rowasa Enema) 4 gm RC HS [facility] Last Admin: 01/24/19 21:16 Dose: 4 gm Metoprolol Tartrate (Lopressor) 25 mg PO Q12 [facility] Pantoprazole Sodium (Protonix Ec Tab) 40 mg PO DAILY [facility] Last Admin: 01/25/19 08:47 Dose: 40 mg Sitagliptin Phosphate (Januvia) 25 mg PO DAILY [facility] Last Admin: 01/25/19 08:46 Dose: 25 mg Tamsulosin HCl (Flomax) 0.4 mg PO DAILY [facility] Last Admin: 01/25/19 08:48 Dose: 0.4 mg Physical Exam - Constitutional Appears: No Acute Distress - Head Exam Head Exam: ATRAUMATIC, NORMOCEPHALIC - Eye Exam Additional comments: No icterus. Conjunctiva pale - ENT Exam ENT Exam: Mucous Membranes Dry - Neck Exam Additional comments: No jugular venous distension - Respiratory Exam Respiratory Exam: NORMAL BREATHING PATTERN Additional comments: Lungs clear - Cardiovascular Exam Cardiovascular Exam: REGULAR RHYTHM - GI/Abdominal Exam Additional comments: Abdomen is softly distended Mild diffuse tenderness. No guarding - Extremities Exam Additional comments: No edema or cyanosis Results - Vital Signs Recent Vital Signs: Last Vital Signs Temp 98.2 F 01/25/19 10:00 Pulse 58 L 01/25/19 11:06 Resp 18 01/25/19 10:00 BP 92/53 L 01/25/19 11:06 Pulse Ox 96 01/25/19 10:00 - Labs Result Diagrams: 01/25/19 05:15 01/25/19 05:15 Labs: Laboratory Results - last 24 hr 01/24/19 01/25/19 01/25/19 20:55 05:15 05:15 WBC 10.3 RBC 3.21 L Hgb 7.9 L Hct 24.2 L MCV 75.5 L MCH 24.5 L MCHC 32.5 L RDW 17.2 H Plt Count 434 H MPV 8.7 Neut % (Auto) 61.2 Lymph % (Auto) 29.9 [facility] % (Auto) 7.1 Eos % (Auto) 1.5 Baso % (Auto) 0.3 Neut # (Auto) 6.3 Lymph # (Auto) 3.1 [facility] # (Auto) 0.7 Eos # (Auto) 0.2 Baso # (Auto) 0.0 Sodium 147 Potassium 3.3 L Chloride 121 H Carbon Dioxide 19 L Anion Gap 10 BUN 20 Creatinine 2.0 H Est GFR ( Amer) 39 Est GFR (Non-Af Amer) 32 Random Glucose 84 Calcium 8.4 Urine Color Yellow Urine Clarity Slighty-cloudy Urine pH 6.0 Ur Specific [place] 1.015 Urine Protein 30 Urine Glucose (UA) Neg Urine Ketones Negative Urine Blood Small Urine Nitrate Negative Urine Bilirubin Negative Urine Urobilinogen 0.2-1.0 Ur Leukocyte Esterase Small Urine RBC (Auto) 4 H Urine Microscopic WBC 29 H Ur Squamous Epith Cells 1 Urine Bacteria Rare Hyaline Casts 0-2 Assessment & Plan - Assessment and Plan (Free Text) Assessment: CKD serum creatinine remains stable Solitary Rt kidney. The reason for nephrectomy is not known at this time Pt & his do not know. Hypernatremia. Resolving. GI bleed/ Hx/o Colotis nemia secondary to above Hypotension. Most likelt secondary to intravascular volume depletion Receiving IVFs. Plan: Continue with IV fluids Monitor Hb FOB, Iron profile Urine C&S
--- NOTE | 2019-01-25 16:37 | CP.PCM.CON ---
History of Present Illness - History of Present Illness History of Present Illness: 78 yo male with apparent h/o UC and on mesalamine enemas. At present his BMs do not contain blood though his Hgb has been drifting down. C/o throat pain interfering with his ability to eat. Review of Systems - Constitutional Constitutional: absent: Chills - EENT Eyes: absent: Change in Vision Ears: absent: Ear Discharge Nose/Mouth/Throat: absent: Nasal Congestion - Cardiovascular Cardiovascular: absent: Chest Pain - Respiratory Respiratory: absent: Dyspnea - Gastrointestinal Gastrointestinal: As Per HPI - Genitourinary Genitourinary: absent: Change in Urinary Stream Past Patient History - Past Medical History & Family History Past Medical History?: Yes - Past Social History Smoking Status: Former Smoker Alcohol: None Drugs: Denies Home Situation {Lives}: With Family (2nd floor) - CARDIAC Hx Hypercholesterolemia: Yes Hx Hypertension: Yes - PULMONARY Hx Respiratory Disorders: No - NEUROLOGICAL HX Cerebrovascular Accident: Yes - HEENT Hx HEENT Problems: No - RENAL Hx Chronic Kidney Disease: Yes (Lt nephrectomy.) - ENDOCRINE/METABOLIC Hx Endocrine Disorders: Yes Hx Diabetes Mellitus Type 2: Yes - HEMATOLOGICAL/ONCOLOGICAL Hx Cancer: Yes - MUSCULOSKELETAL/RHEUMATOLOGICAL Hx Musculoskeletal Disorders: Yes Hx Falls: Yes (4 months) Hx Gout: Yes Hx Unsteady Gait: Yes (post CVA) - GASTROINTESTINAL Hx Gastrointestinal Disorders: Yes Hx Colitis: Yes (chronic) Hx Gastroesophageal Reflux: Yes HX Swallowing Problems: Yes (current complaint) - GENITOURINARY/GYNECOLOGICAL Hx Genitourinary Disorders: Yes Hx Bladder Cancer: Yes Hx Hematuria: Yes Other/Comment: HX: URINARY FREQUENCY - PSYCHIATRIC Hx Psychophysiologic Disorder: No Hx Substance Use: No - SURGICAL HISTORY Hx Surgeries: Yes Other/Comment: HX: BLADDER CANCER TURBT. HX: NEPHROURETERECTOMY 2014. HX: CYSTOSCOPY WITH BLADDER BIOPSY AND FULGURATION(08/20/18) - ANESTHESIA Hx Anesthesia: Yes Hx Anesthesia Reactions: No Hx Malignant Hyperthermia: No Has any member of the family had a problem w/ anesthesia?: No Meds Allergies/Adverse Reactions: Allergies Allergy/AdvReac Type Severity Reaction Status Date / Time Penicillins Allergy RASH Verified 01/15/19 16:41 - Medications Medications: Current Medications Acetaminophen (Tylenol 325mg Tab) 325 mg PO Q6 PRN PRN Reason: Headache Amlodipine Besylate (Norvasc) 10 mg PO DAILY [facility] Last Admin: 01/25/19 11:06 Dose: Not Given Aspirin (Aspirin Chewable) 81 mg PO DAILY [facility] Last Admin: 01/25/19 08:48 Dose: 81 mg Atorvastatin Calcium (Lipitor) 40 mg PO DAILY [facility] Last Admin: 01/25/19 08:47 Dose: 40 mg Benzocaine/Menthol (Cepacol Sore Throat) 1 alysa PO Q3 PRN PRN Reason: Sore Throat Clopidogrel Bisulfate (Plavix) 75 mg PO DAILY [facility] Last Admin: 01/25/19 08:46 Dose: 75 mg Ergocalciferol (Drisdol 50,000 Intl Units Cap) 1 cap PO FRI [facility] Last Admin: 01/25/19 08:48 Dose: 1 cap Ferrous Sulfate (Feosol) 325 mg PO DAILY [facility] Last Admin: 01/25/19 11:01 Dose: 325 mg Fluticasone Propionate (Flonase) 2 spr PRIYA DAILY [facility] Last Admin: 01/25/19 08:47 Dose: 2 spr Aztreonam 500 mg/ Sodium (Chloride) 50 mls @ 50 mls/hr IVPB Q12 [facility] Last Admin: 01/25/19 08:50 Dose: 50 mls/hr Potassium Chloride 20 meq/ (Sodium Chloride) 1,010 mls @ 100 mls/hr IV .Q10H6M [facility] Stop: 01/26/19 13:19 Loratadine (Claritin) 10 mg PO DAILY [facility] Last Admin: 01/25/19 08:48 Dose: 10 mg Memantine (Namenda) 10 mg PO BID [facility] Last Admin: 01/25/19 08:46 Dose: 10 mg Mesalamine (Rowasa Enema) 4 gm RC HS [facility] Last Admin: 01/24/19 21:16 Dose: 4 gm Metoprolol Tartrate (Lopressor) 25 mg PO Q12 [facility] Pantoprazole Sodium (Protonix Ec Tab) 40 mg PO DAILY [facility] Last Admin: 01/25/19 08:47 Dose: 40 mg Sitagliptin Phosphate (Januvia) 25 mg PO DAILY [facility] Last Admin: 01/25/19 08:46 Dose: 25 mg Tamsulosin HCl (Flomax) 0.4 mg PO DAILY [facility] Last Admin: 01/25/19 08:48 Dose: 0.4 mg Physical Exam - Head Exam Head Exam: ATRAUMATIC - Eye Exam Eye Exam: Normal appearance - ENT Exam ENT Exam: Normal Exam, Normal Oropharynx - Respiratory Exam Respiratory Exam: Clear to Auscultation Bilateral - Cardiovascular Exam Cardiovascular Exam: +S1, +S2 - GI/Abdominal Exam GI & Abdominal Exam: Normal Bowel Sounds, Soft. absent: Tenderness Results - Vital Signs Recent Vital Signs: Last Vital Signs Temp 98.2 F 01/25/19 10:00 Pulse 58 L 01/25/19 11:06 Resp 18 01/25/19 10:00 BP 92/53 L 01/25/19 11:06 Pulse Ox 96 01/25/19 10:00 - Labs Result Diagrams: 01/25/19 05:15 01/25/19 05:15 Labs: Laboratory Results - last 24 hr 01/24/19 01/25/19 01/25/19 20:55 05:15 05:15 WBC 10.3 RBC 3.21 L Hgb 7.9 L Hct 24.2 L MCV 75.5 L MCH 24.5 L MCHC 32.5 L RDW 17.2 H Plt Count 434 H MPV 8.7 Neut % (Auto) 61.2 Lymph % (Auto) 29.9 [place] % (Auto) 7.1 Eos % (Auto) 1.5 Baso % (Auto) 0.3 Neut # (Auto) 6.3 Lymph # (Auto) 3.1 [place] # (Auto) 0.7 Eos # (Auto) 0.2 Baso # (Auto) 0.0 Sodium 147 Potassium 3.3 L Chloride 121 H Carbon Dioxide 19 L Anion Gap 10 BUN 20 Creatinine 2.0 H Est GFR ( Amer) 39 Est GFR (Non-Af Amer) 32 Random Glucose 84 Calcium 8.4 Urine Color Yellow Urine Clarity Slighty-cloudy Urine pH 6.0 Ur Specific [place] 1.015 Urine Protein 30 Urine Glucose (UA) Neg Urine Ketones Negative Urine Blood Small Urine Nitrate Negative Urine Bilirubin Negative Urine Urobilinogen 0.2-1.0 Ur Leukocyte Esterase Small Urine RBC (Auto) 4 H Urine Microscopic WBC 29 H Ur Squamous Epith Cells 1 Urine Bacteria Rare Hyaline Casts 0-2 Assessment & Plan (1) Acute blood loss anemia Assessment and Plan: No bleeding seen now though he continues to c/o throat pain. Recommend ENT consult. Possible upper endoscopy to r/o esophagitis if throat if ENT exam is negative. Status: Resolved
--- NOTE | 2019-01-25 17:15 | CP.PCM.PN ---
Subjective - Date & Time of Evaluation Date of Evaluation: 01/25/19 Time of Evaluation: 17:11 - Subjective Subjective: see below Objective - Vital Signs/Intake and Output Vital Signs (last 24 hours): Temp Pulse Resp BP Pulse Ox 98.2 F 58 L 18 92/53 L 96 01/25/19 10:00 01/25/19 11:06 01/25/19 10:00 01/25/19 11:06 01/25/19 10:00 - Medications Medications: Current Medications Acetaminophen (Tylenol 325mg Tab) 325 mg PO Q6 PRN PRN Reason: Headache Amlodipine Besylate (Norvasc) 10 mg PO DAILY [facility] Last Admin: 01/25/19 11:06 Dose: Not Given Aspirin (Aspirin Chewable) 81 mg PO DAILY [facility] Last Admin: 01/25/19 08:48 Dose: 81 mg Atorvastatin Calcium (Lipitor) 40 mg PO DAILY [facility] Last Admin: 01/25/19 08:47 Dose: 40 mg Benzocaine/Menthol (Cepacol Sore Throat) 1 alysa PO Q3 PRN PRN Reason: Sore Throat Clopidogrel Bisulfate (Plavix) 75 mg PO DAILY [facility] Last Admin: 01/25/19 08:46 Dose: 75 mg Ergocalciferol (Drisdol 50,000 Intl Units Cap) 1 cap PO FRI [facility] Last Admin: 01/25/19 08:48 Dose: 1 cap Ferrous Sulfate (Feosol) 325 mg PO DAILY [facility] Last Admin: 01/25/19 11:01 Dose: 325 mg Fluticasone Propionate (Flonase) 2 spr PRIYA DAILY [facility] Last Admin: 01/25/19 08:47 Dose: 2 spr Aztreonam 500 mg/ Sodium (Chloride) 50 mls @ 50 mls/hr IVPB Q12 [facility] Last Admin: 01/25/19 08:50 Dose: 50 mls/hr Potassium Chloride 20 meq/ (Sodium Chloride) 1,010 mls @ 100 mls/hr IV .Q10H6M [facility] Stop: 01/26/19 13:19 Loratadine (Claritin) 10 mg PO DAILY [facility] Last Admin: 01/25/19 08:48 Dose: 10 mg Memantine (Namenda) 10 mg PO BID [facility] Last Admin: 01/25/19 08:46 Dose: 10 mg Mesalamine (Rowasa Enema) 4 gm RC HS [facility] Last Admin: 01/24/19 21:16 Dose: 4 gm Metoprolol Tartrate (Lopressor) 25 mg PO Q12 [facility] Pantoprazole Sodium (Protonix Ec Tab) 40 mg PO DAILY [facility] Last Admin: 01/25/19 08:47 Dose: 40 mg Sitagliptin Phosphate (Januvia) 25 mg PO DAILY [facility] Last Admin: 01/25/19 08:46 Dose: 25 mg Tamsulosin HCl (Flomax) 0.4 mg PO DAILY [facility] Last Admin: 01/25/19 08:48 Dose: 0.4 mg - Labs Labs: 01/25/19 05:15 01/25/19 05:15 Assessment and Plan - Assessment and Plan (Free Text) Assessment: 78 y/o male admitted to rehab yesterday from the floor, where he was admitted for GI bleed and secondary CVA. I am asked to see patient for throat pain that is interfering with his ability to eat. 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 this has been present for 3 weeks. Past Medical History UC CVA Dementia Allergies PCN Exam awake, alert, comfortable oc/op clear; no erythema; no palate swelling or asymmetry neck soft, non tender; no swelling; no masses; trachea midline Fiberoptic Laryngoscopy: normal nasopharynx/oropharynx/hypopharynx/larynx. no swelling; no mass; b/l TVC motion normal Impression dysphagia no evidence of infection or other pathology from the level of the larynx/hypopharynx and up ? related to recent cva Recommend swallow therapy t/c esophagram, GI evaluation / upper endoscopy call if any ?s
[2019-01-25] MEDS: Potassium Chloride 20 MEQ in Sodium Chloride 0.45% 1,000 ML IV SCH (17:31)
[2019-01-25] MEDS: Benzocaine/Menthol (Cepacol) Lozenge PO PRN ×2 (17:36→20:40)
[2019-01-26] MEDS: Benzocaine/Menthol (Cepacol) Lozenge PO PRN ×2 (02:15→17:20)
[2019-01-26] MEDS: Potassium Chloride 20 MEQ in Sodium Chloride 0.45% 1,000 ML IV SCH ×2 (04:49→10:26)
[2019-01-26 08:19] LABS: BASO % 0.2 % (0.0-2.0); EOS # 0.3 K/uL (0.0-0.7); EOS % 2.8 % (0.0-4.0); HEMOGLOBIN 7.7 g/dL (12.0-18.0); LYMPH # 2.9 K/uL (1.0-4.3); LYMPH % 27.4 % (20.0-40.0); MEAN CELL VOLUME 75.5 fl (80.0-94.0); MEAN CORPUSCULAR HEMOGLOBIN 25.2 pg (27.0-31.0); MEAN CORPUSCULAR HGB CONC 33.4 g/dL (33.0-37.0); MEAN PLATELET VOLUME 8.7 fl (7.2-11.7); MONO # 0.5 K/uL (0.0-0.8); MONO % 4.9 % (0.0-10.0); NEUT # 6.8 K/uL (1.8-7.0); NEUT % 64.7 % (50.0-75.0); NRBC % 0.8 % (0.0-0.0); RBC 3.06 Mil/uL (4.40-5.90); RED CELL DISTRIBUTION WIDTH 17.3 % (11.5-14.5); WHITE BLOOD COUNT 10.5 K/uL (4.8-10.8)
[2019-01-26] MEDS: Pantoprazole 40 mg EC Tab PO SCH (08:19)
[2019-01-26 08:25] LABS: CALCIUM 7.9 mg/dL (8.4-10.2)
[2019-01-26 08:34] LABS: IRON 20 ug/dL (49-181)
[2019-01-26 08:43] LABS: % IRON SATURATION 13 % (20-55); TOTAL IRON BINDING CAPACITY 154 ug/dL (250-450)
[2019-01-26 09:01] LABS: FERRITIN 54.7 ng/Ml (17.9-464)
--- NOTE | 2019-01-26 12:09 | PN ---
DATE: 01/26/2019 SUBJECTIVE: The patient is seen and examined. Interim events noted. Consults noted and appreciated. The patient remains in acute rehab unit. Awake, responsive. Feels okay. Denies any specific complaint. No new complaint of chest pain or shortness of breath. PHYSICAL EXAMINATION: GENERAL: The patient is in no acute distress. VITAL SIGNS: Stable. HEART: S1, S2, normal and regular. LUNGS: Good bilateral air exchange. ABDOMEN: Soft, nontender. EXTREMITIES: No edema. No calf swelling. No tenderness. No acute ischemia. CENTRAL NERVOUS SYSTEM: Exam is essentially unchanged. DIAGNOSTIC DATA: Available diagnostic data reviewed. Today's labs are pending. ASSESSMENT AND PLAN: Overall, the patient's general medical condition is stable. Plan as ordered. Gatito Mathew MD
--- NOTE | 2019-01-26 12:12 | CP.PCM.PN ---
Subjective - Date & Time of Evaluation Date of Evaluation: 01/26/19 Time of Evaluation: 11:45 - Subjective Subjective: Appears comfortable in bed. Objective - Vital Signs/Intake and Output Vital Signs (last 24 hours): Temp Pulse Resp BP Pulse Ox 98.8 F 61 18 116/60 94 L 01/26/19 10:24 01/26/19 10:00 01/26/19 10:00 01/26/19 10:00 01/26/19 10:00 Intake and Output: 01/26/19 01/26/19 06:59 18:59 Intake Total 1150 Output Total 500 Balance 650 - Medications Medications: Current Medications Acetaminophen (Tylenol 325mg Tab) 325 mg PO Q6 PRN PRN Reason: Headache Last Admin: 01/26/19 10:24 Dose: 325 mg Amlodipine Besylate (Norvasc) 10 mg PO DAILY [facility] Last Admin: 01/25/19 11:06 Dose: Not Given Aspirin (Aspirin Chewable) 81 mg PO DAILY [facility] Last Admin: 01/25/19 08:48 Dose: 81 mg Atorvastatin Calcium (Lipitor) 40 mg PO DAILY [facility] Last Admin: 01/26/19 08:19 Dose: 40 mg Benzocaine/Menthol (Cepacol Sore Throat) 1 alysa PO Q3 PRN PRN Reason: Sore Throat Last Admin: 01/26/19 02:15 Dose: 1 alysa Clopidogrel Bisulfate (Plavix) 75 mg PO DAILY [facility] Last Admin: 01/25/19 08:46 Dose: 75 mg Ergocalciferol (Drisdol 50,000 Intl Units Cap) 1 cap PO FRI [facility] Last Admin: 01/25/19 08:48 Dose: 1 cap Ferrous Sulfate (Feosol) 325 mg PO DAILY [facility] Last Admin: 01/26/19 08:19 Dose: 325 mg Fluticasone Propionate (Flonase) 2 spr PRIYA DAILY [facility] Last Admin: 01/26/19 08:20 Dose: 2 spr Aztreonam 500 mg/ Sodium (Chloride) 50 mls @ 50 mls/hr IVPB Q12 [facility] Last Admin: 01/26/19 08:15 Dose: 50 mls/hr Potassium Chloride 20 meq/ (Sodium Chloride) 1,010 mls @ 100 mls/hr IV .Q10H6M [facility] Stop: 01/26/19 13:19 Last Admin: 01/26/19 10:26 Dose: 100 mls/hr Loratadine (Claritin) 10 mg PO DAILY [facility] Last Admin: 01/26/19 08:20 Dose: 10 mg Memantine (Namenda) 10 mg PO BID [facility] Last Admin: 01/26/19 08:18 Dose: 10 mg Mesalamine (Rowasa Enema) 4 gm RC HS [facility] Last Admin: 01/25/19 21:41 Dose: 4 gm Metoprolol Tartrate (Lopressor) 25 mg PO Q12 [facility] Pantoprazole Sodium (Protonix Ec Tab) 40 mg PO DAILY [facility] Last Admin: 01/26/19 08:19 Dose: 40 mg Sitagliptin Phosphate (Januvia) 25 mg PO DAILY [facility] Last Admin: 01/26/19 08:20 Dose: 25 mg Tamsulosin HCl (Flomax) 0.4 mg PO DAILY [facility] Last Admin: 01/26/19 08:18 Dose: 0.4 mg - Labs Labs: 01/26/19 07:00 01/26/19 07:00 - Constitutional Appears: No Acute Distress - Head Exam Head Exam: ATRAUMATIC, NORMOCEPHALIC - Eye Exam Additional comments: Conjunctiva pale. SClera anicteric. - ENT Exam ENT Exam: Mucous Membranes Dry - Neck Exam Additional comments: JVD negative - Respiratory Exam Respiratory Exam: NORMAL BREATHING PATTERN Additional comments: Lungs clear - Cardiovascular Exam Cardiovascular Exam: REGULAR RHYTHM Additional comments: No S3 - GI/Abdominal Exam Additional comments: Softly distended - Extremities Exam Additional comments: No edema Assessment and Plan - Assessment and Plan (Free Text) Assessment: CKD with solitary Rt kidney. Renal function is stable Hypernatremia corrected GI bleed Anemia Plan: BP is better today. Will start on normal saline for BP support for 24 hrs then re evaluate. Pt has active GI bleed. Monitor Hb. Continue to monitor renal function.
[2019-01-26] MEDS: Potassium Chl 20 mEq in NS 1,000 ML IV SCH (14:36)
[2019-01-27 08:46] LABS: MEAN CELL VOLUME 75.6 fl (80.0-94.0); MEAN CORPUSCULAR HEMOGLOBIN 24.9 pg (27.0-31.0); RBC 3.21 Mil/uL (4.40-5.90); RED CELL DISTRIBUTION WIDTH 17.5 % (11.5-14.5); WHITE BLOOD COUNT 8.9 K/uL (4.8-10.8)
[2019-01-27] MEDS: Pantoprazole 40 mg EC Tab PO SCH (09:03)
[2019-01-27 09:05] LABS: ALB/GLOB RATIO 0.7 (1.0-2.1); ALBUMIN 2.5 g/dL (3.5-5.0); CALCIUM 7.6 mg/dL (8.4-10.2)
[2019-01-27] MEDS: Potassium Chl 20 mEq in NS 1,000 ML IV SCH (09:06)
--- NOTE | 2019-01-27 09:26 | CP.PCM.PN ---
Subjective - Date & Time of Evaluation Date of Evaluation: 01/27/19 Time of Evaluation: 09:24 - Subjective Subjective: Rodri Loya, born 1940 who has been admitted to [facility] acute inpatient rehabilitation. Had GI bleed and abdominal distention. 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 Right hand dominant. Previously independent. + abdominal distension and tympany but nursing reports +BMs. Seen by GI no concern Improving ROM and strength Objective - Vital Signs/Intake and Output Vital Signs (last 24 hours): Temp Pulse Resp BP Pulse Ox 98.0 F 70 20 127/65 96 01/26/19 21:00 01/26/19 21:00 01/26/19 21:00 01/26/19 21:00 01/26/19 21:00 Intake and Output: 01/27/19 01/27/19 06:59 18:59 Intake Total 770 Balance 770 - Medications Medications: Current Medications Acetaminophen (Tylenol 325mg Tab) 325 mg PO Q6 PRN PRN Reason: Headache Last Admin: 01/26/19 10:24 Dose: 325 mg Amlodipine Besylate (Norvasc) 10 mg PO DAILY [facility] Last Admin: 01/25/19 11:06 Dose: Not Given Aspirin (Aspirin Chewable) 81 mg PO DAILY [facility] Last Admin: 01/25/19 08:48 Dose: 81 mg Atorvastatin Calcium (Lipitor) 40 mg PO DAILY [facility] Last Admin: 01/27/19 09:05 Dose: 40 mg Benzocaine/Menthol (Cepacol Sore Throat) 1 alysa PO Q3 PRN PRN Reason: Sore Throat Last Admin: 01/26/19 17:20 Dose: 1 alysa Clopidogrel Bisulfate (Plavix) 75 mg PO DAILY [facility] Last Admin: 01/25/19 08:46 Dose: 75 mg Ergocalciferol (Drisdol 50,000 Intl Units Cap) 1 cap PO FRI [facility] Last Admin: 01/25/19 08:48 Dose: 1 cap Ferrous Sulfate (Feosol) 325 mg PO BIDWM [facility] Last Admin: 01/27/19 09:00 Dose: 325 mg Fluticasone Propionate (Flonase) 2 spr PRIYA DAILY [facility] Last Admin: 01/27/19 09:04 Dose: 2 spr Aztreonam 500 mg/ Sodium (Chloride) 50 mls @ 50 mls/hr IVPB Q12 [facility] Last Admin: 01/27/19 09:09 Dose: 50 mls/hr Potassium Chloride/Sodium Chloride (Potassium Chl 20 Meq In Ns) 1,000 mls @ 50 mls/hr IV .Q20H [facility] Last Admin: 01/27/19 09:06 Dose: 50 mls/hr Loratadine (Claritin) 10 mg PO DAILY [facility] Last Admin: 01/27/19 09:03 Dose: 10 mg Memantine (Namenda) 10 mg PO BID [facility] Last Admin: 01/27/19 09:03 Dose: 10 mg Mesalamine (Rowasa Enema) 4 gm RC HS [facility] Last Admin: 01/26/19 21:32 Dose: 4 gm Metoprolol Tartrate (Lopressor) 25 mg PO Q12 [facility] Pantoprazole Sodium (Protonix Ec Tab) 40 mg PO DAILY [facility] Last Admin: 01/27/19 09:03 Dose: 40 mg Sitagliptin Phosphate (Januvia) 25 mg PO DAILY [facility] Last Admin: 01/27/19 09:03 Dose: 25 mg Tamsulosin HCl (Flomax) 0.4 mg PO DAILY [facility] Last Admin: 01/27/19 09:03 Dose: 0.4 mg - Labs Labs: 01/27/19 06:30 01/27/19 06:30 - Constitutional Appears: Non-toxic, No Acute Distress - Head Exam Head Exam: ATRAUMATIC, NORMAL INSPECTION, NORMOCEPHALIC - Eye Exam Eye Exam: EOMI - ENT Exam ENT Exam: Mucous Membranes Moist - Respiratory Exam Respiratory Exam: NORMAL BREATHING PATTERN - Cardiovascular Exam Cardiovascular Exam: REGULAR RHYTHM - GI/Abdominal Exam GI & Abdominal Exam: Distended, Soft. absent: Tenderness - Extremities Exam Extremities Exam: absent: Calf Tenderness - Neurological Exam Neurological Exam: Alert, Awake, CN II-XII Intact, Oriented x3 Neuro motor strength exam: Left Upper Extremity: 5, Right Upper Extremity: 5 - Psychiatric Exam Psychiatric exam: Normal Affect, Normal Mood - Skin Skin Exam: Warm Assessment and Plan - Assessment and Plan (Free Text) Assessment: PT/OT to continue to help increase functional independence Team conference for d/c planning Pain: controlled Vascular: no evidence of DVT GI: No evidence of constipation or diarrhea in spite of distended abdomen and tympany Patient continues to be an excellent acute rehabilitation candidate and will have continued focused PT, OT and recreational therapy to help facilitate a safe and appropriate d/c plan
--- NOTE | 2019-01-27 12:22 | CP.PCM.PN ---
Subjective - Date & Time of Evaluation Date of Evaluation: 01/27/19 Time of Evaluation: 12:00 - Subjective Subjective: Pt c/o nausea & vomited small amt of osman appearing vomitus. Now [facility]. Objective - Vital Signs/Intake and Output Vital Signs (last 24 hours): Temp Pulse Resp BP Pulse Ox 98.1 F 69 18 131/59 L 98 01/27/19 09:26 01/27/19 09:26 01/27/19 09:26 01/27/19 09:26 01/27/19 09:26 Intake and Output: 01/27/19 01/27/19 06:59 18:59 Intake Total 770 Balance 770 - Medications Medications: Current Medications Acetaminophen (Tylenol 325mg Tab) 325 mg PO Q6 PRN PRN Reason: Headache Last Admin: 01/26/19 10:24 Dose: 325 mg Amlodipine Besylate (Norvasc) 10 mg PO DAILY [facility] Last Admin: 01/25/19 11:06 Dose: Not Given Aspirin (Aspirin Chewable) 81 mg PO DAILY [facility] Last Admin: 01/25/19 08:48 Dose: 81 mg Atorvastatin Calcium (Lipitor) 40 mg PO DAILY [facility] Last Admin: 01/27/19 09:05 Dose: 40 mg Benzocaine/Menthol (Cepacol Sore Throat) 1 alysa PO Q3 PRN PRN Reason: Sore Throat Last Admin: 01/26/19 17:20 Dose: 1 alysa Clopidogrel Bisulfate (Plavix) 75 mg PO DAILY [facility] Last Admin: 01/25/19 08:46 Dose: 75 mg Ergocalciferol (Drisdol 50,000 Intl Units Cap) 1 cap PO FRI [facility] Last Admin: 01/25/19 08:48 Dose: 1 cap Ferrous Sulfate (Feosol) 325 mg PO BIDWM [facility] Last Admin: 01/27/19 09:00 Dose: 325 mg Fluticasone Propionate (Flonase) 2 spr PRIYA DAILY [facility] Last Admin: 01/27/19 09:04 Dose: 2 spr Aztreonam 500 mg/ Sodium (Chloride) 50 mls @ 50 mls/hr IVPB Q12 [facility] Last Admin: 01/27/19 09:09 Dose: 50 mls/hr Potassium Chloride/Sodium Chloride (Potassium Chl 20 Meq In Ns) 1,000 mls @ 50 mls/hr IV .Q20H [facility] Last Admin: 01/27/19 09:06 Dose: 50 mls/hr Loratadine (Claritin) 10 mg PO DAILY [facility] Last Admin: 01/27/19 09:03 Dose: 10 mg Memantine (Namenda) 10 mg PO BID [facility] Last Admin: 01/27/19 09:03 Dose: 10 mg Mesalamine (Rowasa Enema) 4 gm RC HS [facility] Last Admin: 01/26/19 21:32 Dose: 4 gm Metoprolol Tartrate (Lopressor) 25 mg PO Q12 [facility] Pantoprazole Sodium (Protonix Ec Tab) 40 mg PO DAILY [facility] Last Admin: 01/27/19 09:03 Dose: 40 mg Potassium Chloride (Klor-Con 10) 30 meq PO BID [facility] Stop: 01/28/19 11:31 Sitagliptin Phosphate (Januvia) 25 mg PO DAILY [facility] Last Admin: 01/27/19 09:03 Dose: 25 mg Tamsulosin HCl (Flomax) 0.4 mg PO DAILY [facility] Last Admin: 01/27/19 09:03 Dose: 0.4 mg - Labs Labs: 01/27/19 06:30 01/27/19 06:30 - Constitutional Appears: No Acute Distress - Head Exam Head Exam: ATRAUMATIC, NORMOCEPHALIC - Eye Exam Additional comments: No icterus - ENT Exam ENT Exam: Mucous Membranes Moist - Neck Exam Additional comments: No jugular venous distension. - Respiratory Exam Respiratory Exam: NORMAL BREATHING PATTERN Additional comments: Lungs clear Good air entry B/L - Cardiovascular Exam Cardiovascular Exam: REGULAR RHYTHM - GI/Abdominal Exam Additional comments: Softly distended Mild diffuse tenderness - Extremities Exam Additional comments: No edema Assessment and Plan - Assessment and Plan (Free Text) Assessment: JESUS resolving Solitary Rt kidney. Blood pressure is also better GI bleed. Hb i stable Plan: K+ was supplemented Will decrease IVF rate. Continue to monitor renal function & electrolytes.
[2019-01-27] MEDS ORDERED: Potassium Chl 20 mEq in NS 1,000 ML IV SCH (12:30)
[2019-01-27] MEDS: Potassium Chloride 10 mEq ER Tab PO SCH ×2 (13:43→18:00)
--- NOTE | 2019-01-27 19:20 | CP.PCM.PN ---
Subjective - Date & Time of Evaluation Date of Evaluation: 01/27/19 Time of Evaluation: 19:18 - Subjective Subjective: Patient with ongoing throat pain. Hgb stable at 8. Had blood in stool. Objective - Vital Signs/Intake and Output Vital Signs (last 24 hours): Temp Pulse Resp BP Pulse Ox 98.4 F 69 19 123/59 L 97 01/27/19 15:11 01/27/19 15:11 01/27/19 15:11 01/27/19 15:11 01/27/19 15:11 Intake and Output: 01/27/19 01/28/19 18:59 06:59 Intake Total 770 Balance 770 - Medications Medications: Current Medications Acetaminophen (Tylenol 325mg Tab) 325 mg PO Q6 PRN PRN Reason: Headache Last Admin: 01/26/19 10:24 Dose: 325 mg Amlodipine Besylate (Norvasc) 10 mg PO DAILY [facility] Last Admin: 01/25/19 11:06 Dose: Not Given Aspirin (Aspirin Chewable) 81 mg PO DAILY [facility] Last Admin: 01/25/19 08:48 Dose: 81 mg Atorvastatin Calcium (Lipitor) 40 mg PO DAILY [facility] Last Admin: 01/27/19 09:05 Dose: 40 mg Benzocaine/Menthol (Cepacol Sore Throat) 1 alysa PO Q3 PRN PRN Reason: Sore Throat Last Admin: 01/26/19 17:20 Dose: 1 alysa Clopidogrel Bisulfate (Plavix) 75 mg PO DAILY [facility] Last Admin: 01/25/19 08:46 Dose: 75 mg Ergocalciferol (Drisdol 50,000 Intl Units Cap) 1 cap PO FRI [facility] Last Admin: 01/25/19 08:48 Dose: 1 cap Ferrous Sulfate (Feosol) 325 mg PO BIDWM [facility] Last Admin: 01/27/19 17:17 Dose: 325 mg Fluticasone Propionate (Flonase) 2 spr PRIYA DAILY [facility] Last Admin: 01/27/19 09:04 Dose: 2 spr Aztreonam 500 mg/ Sodium (Chloride) 50 mls @ 50 mls/hr IVPB Q12 [facility] Last Admin: 01/27/19 09:09 Dose: 50 mls/hr Potassium Chloride/Sodium Chloride (Potassium Chl 20 Meq In Ns) 1,000 mls @ 25 mls/hr IV .Q24H [facility] Stop: 01/28/19 12:30 Last Admin: 01/27/19 15:25 Dose: 25 mls/hr Loratadine (Claritin) 10 mg PO DAILY [facility] Last Admin: 01/27/19 09:03 Dose: 10 mg Memantine (Namenda) 10 mg PO BID [facility] Last Admin: 01/27/19 17:17 Dose: 10 mg Mesalamine (Rowasa Enema) 4 gm RC HS [facility] Last Admin: 01/26/19 21:32 Dose: 4 gm Metoprolol Tartrate (Lopressor) 25 mg PO Q12 [facility] Pantoprazole Sodium (Protonix Ec Tab) 40 mg PO DAILY [facility] Last Admin: 01/27/19 09:03 Dose: 40 mg Potassium Chloride (Klor-Con 10) 30 meq PO BID [facility] Stop: 01/28/19 11:31 Last Admin: 01/27/19 18:00 Dose: 30 meq Sitagliptin Phosphate (Januvia) 25 mg PO DAILY [facility] Last Admin: 01/27/19 09:03 Dose: 25 mg Tamsulosin HCl (Flomax) 0.4 mg PO DAILY [facility] Last Admin: 01/27/19 09:03 Dose: 0.4 mg - Labs Labs: 01/27/19 06:30 01/27/19 06:30 - Head Exam Head Exam: ATRAUMATIC - Eye Exam Eye Exam: Normal appearance - ENT Exam ENT Exam: Mucous Membranes Moist - Neck Exam Neck Exam: Full ROM - Respiratory Exam Respiratory Exam: NORMAL BREATHING PATTERN - Cardiovascular Exam Cardiovascular Exam: REGULAR RHYTHM - GI/Abdominal Exam GI & Abdominal Exam: Soft, Normal Bowel Sounds. absent: Tenderness Assessment and Plan (1) Acute blood loss anemia Assessment & Plan: Anemia and FIT positive. EGD to r/o ulcer, gastritis, and esophagitis. Status: Resolved
[2019-01-27] MEDS: Lactated Ringer's 1,000 ML IV SCH (22:50)
[2019-01-28 06:30] LABS: HEMOGLOBIN 7.8 g/dL (12.0-18.0); MEAN CELL VOLUME 74.9 fl (80.0-94.0); MEAN CORPUSCULAR HEMOGLOBIN 24.6 pg (27.0-31.0); MEAN CORPUSCULAR HGB CONC 32.9 g/dL (33.0-37.0); RBC 3.17 Mil/uL (4.40-5.90); RED CELL DISTRIBUTION WIDTH 17.2 % (11.5-14.5); WHITE BLOOD COUNT 8.5 K/uL (4.8-10.8)
[2019-01-28 06:52] LABS: ALB/GLOB RATIO 0.7 (1.0-2.1); ALBUMIN 2.5 g/dL (3.5-5.0)
[2019-01-28] MEDS: Pantoprazole 40 mg EC Tab PO SCH (08:36)
--- NOTE | 2019-01-28 08:48 | PN ---
DATE: 01/27/2019 SUBJECTIVE: The patient is seen and examined. Interim events noted. Consults noted and appreciated. The patient had episodes of vomiting, but none after that. The patient also had low hemoglobin and telephone orders were given. Currently, the patient feels okay. Denies any chest pain, shortness of breath, dizziness, or any orthostatic symptoms. PHYSICAL EXAMINATION: GENERAL: The patient is in no acute distress. The patient is ambulatory, doing his ADLs with assistance. VITAL SIGNS: Stable. HEART: S1 and S2, normal and regular. LUNGS: Good bilateral air exchange. ABDOMEN: Soft and nontender. EXTREMITY: No edema. No calf swelling. No tenderness. No acute ischemia. CENTRAL NERVOUS SYSTEM: Essentially unchanged. The patient does not have any orthostatic signs. DIAGNOSTIC DATA: Available diagnostic data reviewed. Hemoglobin is down to 7 consistent with anemia of chronic disease. ASSESSMENT AND PLAN: Overall, the patient is hemodynamically stable, although hemoglobin is down to 7.7 Monitor blood pressure and hemoglobin. Plan as ordered. Gatito Mathew MD
[2019-01-28] MEDS: Potassium Chloride 10 mEq ER Tab PO SCH (08:56)
--- NOTE | 2019-01-28 12:06 | PN ---
DATE: 01/28/2019 SUBJECTIVE: The patient is seen and examined. Interim events noted. Consults noted and appreciated. Telephone orders were given. The patient was having episodes of diarrhea. Currently, the patient feels okay. Denies any chest pain, shortness of breath, or abdominal pain. PHYSICAL EXAMINATION: GENERAL: The patient is in no acute distress. VITAL SIGNS: Stable. HEART: S1 and S2, normal and regular. LUNGS: Good bilateral air exchange. ABDOMEN: Soft and nontender. No sign of acute abdomen. No guarding. No rigidity. No rebound. Bowel sounds are grossly normal. EXTREMITIES: No edema. No calf swelling. No tenderness. No acute ischemia. CENTRAL NERVOUS SYSTEM: Essentially unchanged. DIAGNOSTIC DATA: Available diagnostic data reviewed. nephrology followup and intervention noted and appreciated. The patient is for endoscopy. PLAN: Plan as ordered. Case and plan discussed with the patient. Gatito Mathew MD
[2019-01-28] MEDS: Lactated Ringer's 1,000 ML IV SCH (14:40)
--- NOTE | 2019-01-28 15:04 | CP.PCM.PN ---
Subjective - Date & Time of Evaluation Date of Evaluation: 01/28/19 Time of Evaluation: 03:00 - Subjective Subjective: Currently in OR for EGD Objective - Vital Signs/Intake and Output Vital Signs (last 24 hours): Temp Pulse Resp BP Pulse Ox 98.6 F 66 18 124/57 L 96 01/28/19 09:23 01/28/19 09:23 01/28/19 09:23 01/28/19 09:23 01/28/19 09:23 Intake and Output: 01/28/19 01/28/19 06:59 18:59 Intake Total 965 Output Total 750 Balance 215 - Medications Medications: Current Medications Acetaminophen (Tylenol 325mg Tab) 325 mg PO Q6 PRN PRN Reason: Headache Last Admin: 01/26/19 10:24 Dose: 325 mg Amlodipine Besylate (Norvasc) 10 mg PO DAILY [facility] Last Admin: 01/25/19 11:06 Dose: Not Given Aspirin (Aspirin Chewable) 81 mg PO DAILY [facility] Last Admin: 01/25/19 08:48 Dose: 81 mg Atorvastatin Calcium (Lipitor) 40 mg PO DAILY [facility] Last Admin: 01/28/19 08:54 Dose: 40 mg Benzocaine/Menthol (Cepacol Sore Throat) 1 alysa PO Q3 PRN PRN Reason: Sore Throat Last Admin: 01/26/19 17:20 Dose: 1 alysa Clopidogrel Bisulfate (Plavix) 75 mg PO DAILY [facility] Last Admin: 01/25/19 08:46 Dose: 75 mg Ergocalciferol (Drisdol 50,000 Intl Units Cap) 1 cap PO FRI [facility] Last Admin: 01/25/19 08:48 Dose: 1 cap Ferrous Sulfate (Feosol) 325 mg PO BIDWM [facility] Last Admin: 01/28/19 08:53 Dose: 325 mg Fluconazole (Diflucan) 100 mg PO DAILY [facility]; Protocol Stop: 02/02/19 14:16 Fluticasone Propionate (Flonase) 2 spr PRIYA DAILY [facility] Last Admin: 01/28/19 08:51 Dose: 2 spr Lactated Ringer's (Lactated Ringer's) 1,000 mls @ 60 mls/hr IV .[id number] [facility] Last Admin: 01/27/19 22:50 Dose: 60 mls/hr Loratadine (Claritin) 10 mg PO DAILY [facility] Last Admin: 01/28/19 08:52 Dose: 10 mg Memantine (Namenda) 10 mg PO BID [facility] Last Admin: 01/28/19 08:51 Dose: 10 mg Mesalamine (Rowasa Enema) 4 gm RC HS [facility] Last Admin: 01/27/19 21:22 Dose: 4 gm Metoprolol Tartrate (Lopressor) 25 mg PO Q12 [facility] Sitagliptin Phosphate (Januvia) 25 mg PO DAILY [facility] Last Admin: 01/28/19 08:52 Dose: 25 mg Sucralfate (Carafate Oral Susp) 1 gm PO QID [facility] Tamsulosin HCl (Flomax) 0.4 mg PO DAILY [facility] Last Admin: 01/28/19 08:52 Dose: 0.4 mg - Labs Labs: 01/28/19 05:30 01/28/19 05:30 Assessment and Plan - Assessment and Plan (Free Text) Assessment: CKD creatinine is improving. 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 There was some extension of tumor arnav the bladder. Recent f/u showed no residual tumor. Blood pressures are better now. Plan: Monitor renal function & BP
--- NOTE | 2019-01-28 16:34 | CP.PCM.PN ---
Subjective - Date & Time of Evaluation Date of Evaluation: 01/28/19 Time of Evaluation: 16:33 - Subjective Subjective: Rodri Loya, born 1940 who has been admitted to [facility] acute inpatient rehabilitation. Had GI bleed and abdominal distention. +[employer] and work up revealed a right MCA acute infarct. Right hand dominant. Previously independent. + abdominal distension and tympany but nursing reports +BMs. Improving ROM and strength Went for EGD today Objective - Vital Signs/Intake and Output Vital Signs (last 24 hours): Temp Pulse Resp BP Pulse Ox 98.6 F 66 18 124/57 L 96 01/28/19 09:23 01/28/19 09:23 01/28/19 09:23 01/28/19 09:23 01/28/19 09:23 Intake and Output: 01/28/19 01/28/19 06:59 18:59 Intake Total 965 Output Total 750 Balance 215 - Medications Medications: Current Medications Acetaminophen (Tylenol 325mg Tab) 325 mg PO Q6 PRN PRN Reason: Headache Last Admin: 01/26/19 10:24 Dose: 325 mg Amlodipine Besylate (Norvasc) 10 mg PO DAILY [facility] Last Admin: 01/25/19 11:06 Dose: Not Given Aspirin (Aspirin Chewable) 81 mg PO DAILY [facility] Last Admin: 01/25/19 08:48 Dose: 81 mg Atorvastatin Calcium (Lipitor) 40 mg PO DAILY [facility] Last Admin: 01/28/19 08:54 Dose: 40 mg Benzocaine/Menthol (Cepacol Sore Throat) 1 alysa PO Q3 PRN PRN Reason: Sore Throat Last Admin: 01/26/19 17:20 Dose: 1 alysa Clopidogrel Bisulfate (Plavix) 75 mg PO DAILY [facility] Last Admin: 01/25/19 08:46 Dose: 75 mg Ergocalciferol (Drisdol 50,000 Intl Units Cap) 1 cap PO FRI [facility] Last Admin: 01/25/19 08:48 Dose: 1 cap Ferrous Sulfate (Feosol) 325 mg PO BIDWM [facility] Last Admin: 01/28/19 08:53 Dose: 325 mg Fluconazole (Diflucan) 100 mg PO DAILY [facility]; Protocol Stop: 02/02/19 14:16 Fluticasone Propionate (Flonase) 2 spr PRIYA DAILY [facility] Last Admin: 01/28/19 08:51 Dose: 2 spr Loratadine (Claritin) 10 mg PO DAILY [facility] Last Admin: 01/28/19 08:52 Dose: 10 mg Memantine (Namenda) 10 mg PO BID [facility] Last Admin: 01/28/19 08:51 Dose: 10 mg Mesalamine (Rowasa Enema) 4 gm RC HS [facility] Last Admin: 01/27/19 21:22 Dose: 4 gm Metoprolol Tartrate (Lopressor) 25 mg PO Q12 [facility] Sitagliptin Phosphate (Januvia) 25 mg PO DAILY [facility] Last Admin: 01/28/19 08:52 Dose: 25 mg Sucralfate (Carafate Oral Susp) 1 gm PO QID [facility] Tamsulosin HCl (Flomax) 0.4 mg PO DAILY [facility] Last Admin: 01/28/19 08:52 Dose: 0.4 mg - Labs Labs: 01/28/19 05:30 01/28/19 05:30 - Constitutional Appears: Non-toxic, No Acute Distress - Head Exam Head Exam: ATRAUMATIC, NORMAL INSPECTION, NORMOCEPHALIC - Eye Exam Eye Exam: EOMI - ENT Exam ENT Exam: Mucous Membranes Moist - Respiratory Exam Respiratory Exam: NORMAL BREATHING PATTERN - Cardiovascular Exam Cardiovascular Exam: REGULAR RHYTHM - GI/Abdominal Exam GI & Abdominal Exam: Distended, Soft. absent: Guarding - Extremities Exam Extremities Exam: absent: Calf Tenderness - Neurological Exam Neurological Exam: Alert, CN II-XII Intact - Psychiatric Exam Psychiatric exam: Flat Affect, Normal Mood - Skin Skin Exam: Warm Assessment and Plan - Assessment and Plan (Free Text) Assessment: 78 year old CVA improved function PT/OT to continue to help increase functional independence Team conference for d/c planning Pain: controlled, although does have some left knee pain. will see how this responds to therapy tomorrow Vascular: no evidence of DVT GI: No evidence of constipation or diarrhea Patient continues to be an excellent acute rehabilitation candidate and will have continued focused speech, PT, OT and recreational therapy to help facilita te a safe and appropriate d/c plan
[2019-01-28] MEDS: Sucralfate 1 gm/10 ml Oral Susp UD PO SCH ×2 (17:00→21:07)
[2019-01-29 06:36] LABS: HEMOGLOBIN 7.8 g/dL (12.0-18.0); MEAN CELL VOLUME 75.6 fl (80.0-94.0); MEAN CORPUSCULAR HEMOGLOBIN 24.7 pg (27.0-31.0); MEAN CORPUSCULAR HGB CONC 32.6 g/dL (33.0-37.0); RBC 3.18 Mil/uL (4.40-5.90); RED CELL DISTRIBUTION WIDTH 17.5 % (11.5-14.5); WHITE BLOOD COUNT 10.4 K/uL (4.8-10.8)
[2019-01-29 06:55] LABS: ALB/GLOB RATIO 0.7 (1.0-2.1); ALBUMIN 2.5 g/dL (3.5-5.0); CALCIUM 7.9 mg/dL (8.4-10.2)
[2019-01-29] MEDS: Sucralfate 1 gm/10 ml Oral Susp UD PO SCH ×4 (08:05→21:25)
--- NOTE | 2019-01-29 12:12 | CP.PCM.PN ---
<Maurice Hsu - Last Filed: 01/29/19 12:06> Subjective - Date & Time of Evaluation Date of Evaluation: 01/29/19 Time of Evaluation: 07:00 - Subjective Subjective: Pt seen and examine this am with Dr. Mathew. Noted to be sitting up in chair in good spirits. Endoscopy completed this morning, discussed findings with Dr. Calvert, states that oral thrush was seen, likely Candiasis esophagitis. Started on Diflucan. Objective - Vital Signs/Intake and Output Vital Signs (last 24 hours): Temp Pulse Resp BP Pulse Ox 97.7 F 78 19 119/57 L 97 01/29/19 08:09 01/29/19 08:09 01/29/19 08:09 01/29/19 08:09 01/29/19 08:09 Intake and Output: 01/29/19 01/29/19 06:59 18:59 Intake Total 150 Balance 150 - Medications Medications: Current Medications Acetaminophen (Tylenol 325mg Tab) 325 mg PO Q6 PRN PRN Reason: Headache Last Admin: 01/26/19 10:24 Dose: 325 mg Amlodipine Besylate (Norvasc) 10 mg PO DAILY [facility] Last Admin: 01/25/19 11:06 Dose: Not Given Aspirin (Aspirin Chewable) 81 mg PO DAILY [facility] Last Admin: 01/25/19 08:48 Dose: 81 mg Atorvastatin Calcium (Lipitor) 40 mg PO DAILY [facility] Last Admin: 01/29/19 08:07 Dose: 40 mg Benzocaine/Menthol (Cepacol Sore Throat) 1 alysa PO Q3 PRN PRN Reason: Sore Throat Last Admin: 01/26/19 17:20 Dose: 1 alysa Clopidogrel Bisulfate (Plavix) 75 mg PO DAILY [facility] Last Admin: 01/25/19 08:46 Dose: 75 mg Ergocalciferol (Drisdol 50,000 Intl Units Cap) 1 cap PO FRI [facility] Last Admin: 01/25/19 08:48 Dose: 1 cap Ferrous Sulfate (Feosol) 325 mg PO BIDWM [facility] Last Admin: 01/29/19 08:06 Dose: 325 mg Fluconazole (Diflucan) 100 mg PO DAILY [facility]; Protocol Stop: 02/02/19 14:16 Last Admin: 01/29/19 08:06 Dose: 100 mg Fluticasone Propionate (Flonase) 2 spr PRIYA DAILY [facility] Last Admin: 01/29/19 08:06 Dose: 2 spr Loratadine (Claritin) 10 mg PO DAILY [facility] Last Admin: 01/29/19 08:06 Dose: 10 mg Memantine (Namenda) 10 mg PO BID [facility] Last Admin: 01/29/19 08:05 Dose: 10 mg Mesalamine (Rowasa Enema) 4 gm RC HS [facility] Last Admin: 01/28/19 21:08 Dose: 4 gm Metoprolol Tartrate (Lopressor) 25 mg PO Q12 [facility] Sitagliptin Phosphate (Januvia) 25 mg PO DAILY [facility] Last Admin: 01/29/19 08:06 Dose: 25 mg Sucralfate (Carafate Oral Susp) 1 gm PO QID [facility] Last Admin: 01/29/19 08:05 Dose: 1 gm Tamsulosin HCl (Flomax) 0.4 mg PO DAILY [facility] Last Admin: 01/29/19 08:05 Dose: 0.4 mg - Labs Labs: 01/29/19 06:15 01/29/19 06:15 - Constitutional Appears: No Acute Distress - Head Exam Head Exam: NORMAL INSPECTION - Eye Exam Eye Exam: Normal appearance - ENT Exam ENT Exam: Mucous Membranes Moist - Respiratory Exam Respiratory Exam: Clear to Ausculation Bilateral. absent: Rales, Wheezes - Cardiovascular Exam Cardiovascular Exam: REGULAR RHYTHM - GI/Abdominal Exam GI & Abdominal Exam: Soft. absent: Tenderness - Extremities Exam Extremities Exam: Normal Inspection - Neurological Exam Neurological Exam: Alert, Normal Gait - Psychiatric Exam Psychiatric exam: Normal Affect Assessment and Plan - Assessment and Plan (Free Text) Assessment: 78 y/o male with PMH of Ulcerative colitis, HTN, Bladder Ca, Dementia, prediabetes and CVA in 2007 admitted to [facility] for evaluation and treatment of acute bloody diarrhea with R abdominal pain. CT evidence of left sided colitis and he was treated He was treated with Cipro and Flagyl for colitis and his GI bleed eventually resolved though diarrhea as been persistent which is chronic (Cdiff negative). He was found to have low hemoglobin levels that remained stable between 8-9. Subsequently during this admission he suffered an acute ischemic stroke for he was evaluated by neurology and cardiology and treated with dual antiplatelet therapy. He also developed acute kidney injury and hypernatremia which was resolved with IV fluid hydrations under management of pharmacy messenger. Pt was evaluated by PT and will be sent to subacute rehab for rehabilitation. #Acute CVA, resolved #GI Bleed, resolved #Esophagitis #UC, chronic - Hg stable 7.8 today. On oral iron - C/W ASA and Plavix for secondary stroke prevention - Diflucan ordered for Esophagitis - [place] diet in setting of diarrhea - Management of chronic conditions as ordered - F/U am CBC - OT/PT/ST Discussed with Dr. Priyanka Hsu, PGY2 <Gatito Mathew - Last Filed: 02/06/19 06:16> Objective - Vital Signs/Intake and Output Vital Signs (last 24 hours): Temp Pulse Resp BP Pulse Ox 97.9 F 69 18 102/54 L 100 02/05/19 09:00 02/05/19 09:00 02/05/19 09:00 02/05/19 09:00 02/05/19 08:49 - Labs Labs: 02/05/19 05:40 02/05/19 05:40 Assessment and Plan - Assessment and Plan (Free Text) Assessment: Patient was personally seen and examined by me in rounds with residents. Available labs and diagnostic data reviewed. Case, Patient's condition and management plan discussed with residents in rounds. Agree with resident's progress note. Plan: As ordered.
--- NOTE | 2019-01-29 13:20 | PCM.PSYTMC ---
Acute Rehab Team Conference - - Vital Signs: Vital Signs (Last 8 Hours): Vital Signs 01/29/19 08:09 Temperature 97.7 F Pulse Rate 78 Respiratory 19 Rate Blood Pressure 119/57 L O2 Sat by Pulse 97 Oximetry Pain: 0 - Precautions: Precautions: Fall Prevention, Aspiration - Medications/Other Issues: Comment: -s/p Upper Endoscopy - Esophagitis - started on Diflucan x5 days. - Chronic colitis - occassional diarrhea, black stool, or bleeding. - on Carafate TID. -Generalized weakness. -Hypotension - Consults: Comment: -Dr. Valero - Physiatry. -Dr. Calvert - GI. -Dr. Boone - Nephrology. -Dr. Sanchez - Neuro. -Dr. Miranda - ENT - Skin: Incision Site: intact - Toileting: Toileting: Moderate Assistance - Bladder Management: Bladder Pattern: Incontinent Voiding Method: Toilet, Bedpan, Urinal Bladder Management: Moderate Assistance - Transfers: Transfers: Minimal Assistance - ADL's: ADL's: Minimal Assistance - Pain Management: Other Intervention:: Tylenol for headache - Patient/Family Teaching: Other Intervention:: -Teach patient and family about patient's diagnosis, safety precautions, medication. - Goals/Time Frame: Comment: -Keep patient safe, well informed of diagnosis, procedures, and medication, and maintain a regular bowel movement until next team conference or discharge. - Provider: Registered Nurse:: Karla Romo Physical Therapy - Bed Mobility Bed Mobility: Supervision, Verbal Cues Comment: Functional status documented in this team conf is as per PT note 01/26/19 for bed mob, t/f, gait and 01/25/19 for stair status. Pt seen today 1 hr s/p EGD and displayed malaise and dizziness after t/f OOB. He required incr'd assist for all fxnl mob and ambulatory tasks were deferred. - Transfers Wheelchair to Mat: Supervision, Verbal Cues Sit to Stand: Supervision, Verbal Cues Comment: As per 01/26/19 PT note - Ambulation Distance (ft.): 140 Comment: As per 01/26/19 PT note. -140 ft x 4, no AD, CGA. -Cues for increased AME, improved heel strike, and safety when navigating busy environment - Stair Negotiation Comment: as per 01/25/19 PT noted. 4 practice stairs, B handrails, CGA. - Cues for proper sequencing and foot placement for increased safety. -cues for advancing UEs on handrails - Standing Balance Static Stand: Contact Guard Assist Comment: w/o AD - Pain Pain (assessed during therapy session): 0 - Insight/Carryover Insight/Carryover: Fair - Patient/Family Education Comment: CVA recovery related topics, posture, activity pacing, balance. DBE, benefits of being OOB, PT goals, fxnl mob, DME, safety, falls - Assessment/Plan Assessment: 78 yo male who is continuing his acute rehab stay s/p R MCA CVA. Pt's recovery is complicated by GI issues, most notably recent a GIB and EGD today. Pt demonstrates improvement with his L sided weakness, standing balance, fxnl mob and activity tolerance. He did display a decline in fxnl mob today secondary to pt seen for PT 1 hr s/p EGD. Previously, pt required CS for bed mobility and transfers, and CGA for ambulation, stair negotiation with handrails. Cont'd skilled PT recommended to maximize fxnl mob, balance, activity tolerance and safety awareness. - Goals Timeframe: 2 weeks Goals: Pt will negotiate flight of stairs with handrail mod I. Pt will ambulate 500 ft (I). Sit < > stand transfers (I). Sit < > supine mod I - Provider Physical Therapist:: Dione Rios License Number:: [id number] Occupational Therapy - Arousal/Attention/Orientation Level of Consciousness: Awake, Alert, Forgetful Patient Orientation: Person, Place - ADL/IADL Self Feeding: Set-up Help Grooming: Set-up Help Bathing-Upper Ext: Supervision Bathing-Lower Ext: Contact Guard Dressing-Upper Ext: Supervision Dressing-Lower Ext: Verbal Cues, Contact Guard - Sitting Balance Static Sitting: Supervision Dynamic Sitting: Requires supervision - Transfers Wheelchair to Bed Transfers: Contact Guard Toilet Transfers: Contact Guard Comment: tub transfers to be assessed - Wheelchair Management Level of Assistance: Supervision Distance (ft.): 75 - Upper Extremity Status Right Upper Extremity Comment: WFLs Left Upper Extremity Comment: WFLs - Pain Pain (assessed during therapy session): 5 Alleviating Techniques: Medication Comment: moderate low back pain and stomach pain - Insight/Carryover Insight/Carryover: Fair - Patient/Family Education Comment: CVA recvoery, safey awareness, use of call wills, use of self releasing seat belt, dme/ae education - Assessment/Plan Assessment: Pt is a 78 yo male presenting to [facility] s/p acute CVA. patient presents with impaired activity tolerance with intermittent SOB, impaired dynamic standing balance/unsteadiness on feet/lack of coordination, impaired safety awareness , decrased cognition with forgetfulness and impaired knowledge of adaptive/compensatory techniques. Patient is doing well and progressing towards goals in therapy. paient is able to complete ub adls with S, lb adls with CS/CGa and transfers/mobility with CS/CGA. Barriers to progress include intermittent bouts orthostatic hypotension, episodes of diahreaa and c/o slight dizziness. recommend d/c home with intermittent S as needed for adls and iadls - Goals Timeframe: 2 weeks Comment: goals: functional transfers to be completed with mod I. toileting routine with mod I. LB dressing to be completed with mod I. LB bathing with S - Provider Occupational Therapist:: Syeda Sheppard License Number: [id number] Speech Therapy - Consult Information Patient on Program: Yes Medical Diagnosis: CVA Treatment Diagnosis: -moderate cognitive deficits. -mild dysphagia - Assessment Problem Solving Impairment: Moderate Memory Impairment: Moderate Dysphagia/Swallowing Impairment: Mild - Plan Assessment: Rodri Loya presents with 1.) moderate cognitive deficits characterized by impaired orientation, attention, problem solving, short-term recall, reasoning and thought organization, word retrieval, and ability following multistep directions and answering more complex yes/no and open-ended questions; and 2.) mild dysphagia characterized by mildly prolonged oral transit time which appears secondary to pt anticipation of throat pain for swallowing rather than a true functional deficit and c/o globus sensation and laryngeal pain when swallowing. Pt's swallowing deficits appear related to pain moreso than a true functional deficit. ENT consult completed with no significant findings; pt pending EGD today. Recommend maintenance of regular solids and thin liquids at this time. Pt would benefit from skilled speech tx 3-5x/week for improved cognition and CLIENT RESOURCE SPECIALIST to follow up 1-2x for diet tolerance and compensatory strategy training. Barriers to learning include cognitive deficits, hearing deficits, and pt perseverations on throat pain. Plan: Continue Dysphagia Therapy, Continue Speech/Language Therapy Frequency: 3-5 times per week Duration: 1 week Goals/Timeframe: Please see progress note dated 01/28/19 for updated goals/POC Recommendations: -Speech tx 3-5x/week. -Dysphagia tx 1-2x; regular solids/thin liquids - Provider Therapist: Ana Ivey License Number: [id number] Recreational Therapy - Participation Participation: Participates in Individual and/or Group Sessions - Activities Leisure Activities: Television - Socialization Level of Socialization: Initiates/interacts with caregivers but not with peer - Assessment Assessment/Plan: Pt was oriented to benefits and purpose of participating in recreation therapy sessions throughout stay on unit. Pt provided with daily bedside visits to improve diversion and leisure awareness level as pt has declined to participate in recreation therapy sessions. Pt presents with poor insight of deficits. Will encourage throughout stay on unit. Problems Currently Limiting Participation: decrease leisure awareness level, hard of hearing, impaired insight of deficits, forgetful, decrease arousal level, decrease level of motivation Goals and Time Frame: Pt will complete participating in 20 minute tabletop leisure task with min verbal cues by date of discharge. - Provider Therapist: Marcia Marie Nutrition - Current Diet Current Diet/Supplement/Feedings: [place] no citrus low fat 6 small meals suplena 8 ounces 1 per day. (425 kcal and 10.6 grams of protein) - Appetite Percent Meal Consumed: 50-74% - Assessment/Goals/Time Frame Assessments/Goals/Time Frame: Pt at high nutritional risk. goals: 1. Pt to consume 75-100% of meals. 2. Blood glucoses to be between 70-180 mg/dl. 3. K+ WNL. Follow-up due on 01/31/2019 - Provider Provider: Keisha Escobar Case Management - Psychosocial Assessment Support Systems: Sharri Loya (spouse) - [phone] Psychological Interventions/Needs: Patient is AAO and able to verbalize needs. Discharge Concerns: Patient was previously independent with ADLs and IADLs at home. Patient/Family Meeting: CM met with patient and rehab team. Intervention/Goal/Outcome: 1. Goal: Mod I/Supervision 2. Plan: home with VNS and homemaker services 3. DME needs 4. caregiver training with 5. schedule f/u appts 6. continued emotional support - Discharge Plan Discharge Plan: Home with services Home Services: [facility] + [facility] Comment: contact homemaker agency to inquire about increasing hours provided to pt for maximum assistance - Provider Provider: Maru Walters License Number: [id number] Rehabilitation Plan - Treatment Plan Treatment Plan: Physical Therapy, Occupational Therapy, Speech, Dietary, Patient/Family Education - Discharge Plan Estimated Date of Discharge: 02/06/19 Discharge to: Subacute
--- NOTE | 2019-01-29 13:43 | CP.PCM.PN ---
Subjective - Date & Time of Evaluation Date of Evaluation: 01/29/19 Time of Evaluation: 13:41 - Subjective Subjective: Patient seen in the room via ecological technical officer Rodri Loya, born 1940 who has been admitted to [facility] acute inpatient rehabilitation. Had GI bleed and abdominal distention. +DIRECTOR OF CHANNEL MARKETING and work up revealed a right MCA acute infarct. Right hand dominant. Previously independent. + abdominal distension and tympany but nursing reports +BMs. Improving ROM and strength Went for EGD + espohagitis Objective - Vital Signs/Intake and Output Vital Signs (last 24 hours): Temp Pulse Resp BP Pulse Ox 97.7 F 78 19 119/57 L 97 01/29/19 08:09 01/29/19 08:09 01/29/19 08:09 01/29/19 08:09 01/29/19 08:09 Intake and Output: 01/29/19 01/29/19 06:59 18:59 Intake Total 150 Balance 150 - Medications Medications: Current Medications Acetaminophen (Tylenol 325mg Tab) 325 mg PO Q6 PRN PRN Reason: Headache Last Admin: 01/26/19 10:24 Dose: 325 mg Amlodipine Besylate (Norvasc) 10 mg PO DAILY [facility] Last Admin: 01/25/19 11:06 Dose: Not Given Aspirin (Aspirin Chewable) 81 mg PO DAILY [facility] Last Admin: 01/25/19 08:48 Dose: 81 mg Atorvastatin Calcium (Lipitor) 40 mg PO DAILY [facility] Last Admin: 01/29/19 08:07 Dose: 40 mg Benzocaine/Menthol (Cepacol Sore Throat) 1 alysa PO Q3 PRN PRN Reason: Sore Throat Last Admin: 01/26/19 17:20 Dose: 1 alysa Clopidogrel Bisulfate (Plavix) 75 mg PO DAILY [facility] Last Admin: 01/25/19 08:46 Dose: 75 mg Ergocalciferol (Drisdol 50,000 Intl Units Cap) 1 cap PO FRI [facility] Last Admin: 01/25/19 08:48 Dose: 1 cap Ferrous Sulfate (Feosol) 325 mg PO BIDWM [facility] Last Admin: 01/29/19 08:06 Dose: 325 mg Fluconazole (Diflucan) 100 mg PO DAILY [facility]; Protocol Stop: 02/02/19 14:16 Last Admin: 01/29/19 08:06 Dose: 100 mg Fluticasone Propionate (Flonase) 2 spr PRIYA DAILY [facility] Last Admin: 01/29/19 08:06 Dose: 2 spr Loratadine (Claritin) 10 mg PO DAILY [facility] Last Admin: 01/29/19 08:06 Dose: 10 mg Memantine (Namenda) 10 mg PO BID [facility] Last Admin: 01/29/19 08:05 Dose: 10 mg Mesalamine (Rowasa Enema) 4 gm RC HS [facility] Last Admin: 01/28/19 21:08 Dose: 4 gm Metoprolol Tartrate (Lopressor) 25 mg PO Q12 [facility] Sitagliptin Phosphate (Januvia) 25 mg PO DAILY [facility] Last Admin: 01/29/19 08:06 Dose: 25 mg Sucralfate (Carafate Oral Susp) 1 gm PO QID [facility] Last Admin: 01/29/19 12:02 Dose: 1 gm Tamsulosin HCl (Flomax) 0.4 mg PO DAILY [facility] Last Admin: 01/29/19 08:05 Dose: 0.4 mg - Labs Labs: 01/29/19 06:15 01/29/19 06:15 - Constitutional Appears: Non-toxic (appears weak) - Head Exam Head Exam: ATRAUMATIC, NORMAL INSPECTION, NORMOCEPHALIC - Eye Exam Eye Exam: EOMI - ENT Exam ENT Exam: Mucous Membranes Moist - Respiratory Exam Respiratory Exam: NORMAL BREATHING PATTERN - GI/Abdominal Exam GI & Abdominal Exam: Distended. absent: Guarding - Extremities Exam Extremities Exam: absent: Calf Tenderness - Neurological Exam Neurological Exam: Alert, Awake - Psychiatric Exam Psychiatric exam: Flat Affect - Skin Skin Exam: Warm Assessment and Plan - Assessment and Plan (Free Text) Assessment: PT/OT to continue to help increase functional independence Team conference for d/c planning Pain: controlled Vascular: no evidence of DVT GI: No evidence of constipation or diarrhea Patient continues to be an excellent acute rehabilitation candidate and will have continued focused speech, PT, OT and recreational therapy to help facilitate a safe and appropriate d/c plan I have started Oxandrin to help with strength, appetite and motivation
--- NOTE | 2019-01-29 14:42 | CP.PCM.CON ---
History of Present Illness - History of Present Illness History of Present Illness: Neurology consult called by Rehab team. Please note that this consult was dictated. PLease note this if two consults appear. Mr. Loya is a 78 yr old male with a pmh of stroke in the past, with resulting hemiplegia, and cardiac disease. He had complete stroke workup done was sent to [facility] rehab earlier this week, and neurology consult is called for followup. Past Patient History - Past Medical History & Family History Past Medical History?: Yes - Past Social History Smoking Status: Former Smoker Alcohol: None Drugs: Denies Home Situation {Lives}: With Family (2nd floor) - CARDIAC Hx Hypercholesterolemia: Yes Hx Hypertension: Yes - PULMONARY Hx Respiratory Disorders: No - NEUROLOGICAL HX Cerebrovascular Accident: Yes - HEENT Hx HEENT Problems: No - RENAL Hx Chronic Kidney Disease: Yes (Lt nephrectomy.) - ENDOCRINE/METABOLIC Hx Endocrine Disorders: Yes Hx Diabetes Mellitus Type 2: Yes - HEMATOLOGICAL/ONCOLOGICAL Hx Cancer: Yes - MUSCULOSKELETAL/RHEUMATOLOGICAL Hx Musculoskeletal Disorders: Yes Hx Falls: Yes (4 months) Hx Gout: Yes Hx Unsteady Gait: Yes (post CVA) - GASTROINTESTINAL Hx Gastrointestinal Disorders: Yes Hx Colitis: Yes (chronic) Hx Gastroesophageal Reflux: Yes HX Swallowing Problems: Yes (current complaint) - GENITOURINARY/GYNECOLOGICAL Hx Genitourinary Disorders: Yes Hx Bladder Cancer: Yes Hx Hematuria: Yes Other/Comment: HX: URINARY FREQUENCY - PSYCHIATRIC Hx Psychophysiologic Disorder: No Hx Substance Use: No - SURGICAL HISTORY Hx Surgeries: Yes Other/Comment: HX: BLADDER CANCER TURBT. HX: NEPHROURETERECTOMY 2014. HX: CYSTOSCOPY WITH BLADDER BIOPSY AND FULGURATION(08/20/18) - ANESTHESIA Hx Anesthesia: Yes Hx Anesthesia Reactions: No Hx Malignant Hyperthermia: No Has any member of the family had a problem w/ anesthesia?: No Meds Allergies/Adverse Reactions: Allergies Allergy/AdvReac Type Severity Reaction Status Date / Time Penicillins Allergy RASH Verified 01/28/19 13:34 - Medications Medications: Current Medications Acetaminophen (Tylenol 325mg Tab) 325 mg PO Q6 PRN PRN Reason: Headache Last Admin: 01/26/19 10:24 Dose: 325 mg Amlodipine Besylate (Norvasc) 10 mg PO DAILY [facility] Last Admin: 01/25/19 11:06 Dose: Not Given Aspirin (Aspirin Chewable) 81 mg PO DAILY [facility] Last Admin: 01/25/19 08:48 Dose: 81 mg Atorvastatin Calcium (Lipitor) 40 mg PO DAILY [facility] Last Admin: 01/29/19 08:07 Dose: 40 mg Benzocaine/Menthol (Cepacol Sore Throat) 1 alysa PO Q3 PRN PRN Reason: Sore Throat Last Admin: 01/26/19 17:20 Dose: 1 alysa Clopidogrel Bisulfate (Plavix) 75 mg PO DAILY [facility] Last Admin: 01/25/19 08:46 Dose: 75 mg Ergocalciferol (Drisdol 50,000 Intl Units Cap) 1 cap PO FRI [facility] Last Admin: 01/25/19 08:48 Dose: 1 cap Ferrous Sulfate (Feosol) 325 mg PO BIDWM [facility] Last Admin: 01/29/19 08:06 Dose: 325 mg Fluconazole (Diflucan) 100 mg PO DAILY [facility]; Protocol Stop: 02/02/19 14:16 Last Admin: 01/29/19 08:06 Dose: 100 mg Fluticasone Propionate (Flonase) 2 spr PRIYA DAILY [facility] Last Admin: 01/29/19 08:06 Dose: 2 spr Loratadine (Claritin) 10 mg PO DAILY [facility] Last Admin: 01/29/19 08:06 Dose: 10 mg Memantine (Namenda) 10 mg PO BID [facility] Last Admin: 01/29/19 08:05 Dose: 10 mg Mesalamine (Rowasa Enema) 4 gm RC HS [facility] Last Admin: 01/28/19 21:08 Dose: 4 gm Metoprolol Tartrate (Lopressor) 25 mg PO Q12 [facility] Oxandrolone (Oxandrin) 5 mg PO BID [facility] Sitagliptin Phosphate (Januvia) 25 mg PO DAILY [facility] Last Admin: 01/29/19 08:06 Dose: 25 mg Sucralfate (Carafate Oral Susp) 1 gm PO QID [facility] Last Admin: 01/29/19 12:02 Dose: 1 gm Tamsulosin HCl (Flomax) 0.4 mg PO DAILY [facility] Last Admin: 01/29/19 08:05 Dose: 0.4 mg Results - Vital Signs Recent Vital Signs: Last Vital Signs Temp 97.7 F 01/29/19 08:09 Pulse 83 01/29/19 09:08 Resp 19 01/29/19 08:09 BP 119/57 L 01/29/19 08:09 Pulse Ox 96 01/29/19 09:08 - Labs Result Diagrams: 02/02/19 05:20 02/02/19 05:20 Labs: Laboratory Results - last 24 hr 01/28/19 01/29/19 01/29/19 16:57 06:15 06:15 WBC 10.4 RBC 3.18 L Hgb 7.8 L Hct 24.0 L MCV 75.6 L MCH 24.7 L MCHC 32.6 L RDW 17.5 H Plt Count 400 Sodium 145 Potassium 3.4 L Chloride 116 H Carbon Dioxide 21 L Anion Gap 11 BUN 17 Creatinine 1.7 H Est GFR ( Amer) 47 Est GFR (Non-Af Amer) 39 Random Glucose 87 Calcium 7.9 L Total Bilirubin 0.7 AST 41 ALT 38 Alkaline Phosphatase 109 Total Protein 5.9 L Albumin 2.5 L Globulin 3.4 Albumin/Globulin Ratio 0.7 L PTH Intact Whole Molec 73 H
--- NOTE | 2019-01-29 15:05 | CP.PCM.PN ---
Subjective - Date & Time of Evaluation Date of Evaluation: 01/29/19 Time of Evaluation: 02:40 - Subjective Subjective: Pt appears cpmfortble No eating well because of esophagitis. Objective - Vital Signs/Intake and Output Vital Signs (last 24 hours): Temp Pulse Resp BP Pulse Ox 97.7 F 83 19 119/57 L 96 01/29/19 08:09 01/29/19 09:08 01/29/19 08:09 01/29/19 08:09 01/29/19 09:08 Intake and Output: 01/29/19 01/29/19 06:59 18:59 Intake Total 150 Balance 150 - Medications Medications: Current Medications Acetaminophen (Tylenol 325mg Tab) 325 mg PO Q6 PRN PRN Reason: Headache Last Admin: 01/26/19 10:24 Dose: 325 mg Amlodipine Besylate (Norvasc) 10 mg PO DAILY [facility] Last Admin: 01/25/19 11:06 Dose: Not Given Aspirin (Aspirin Chewable) 81 mg PO DAILY [facility] Last Admin: 01/25/19 08:48 Dose: 81 mg Atorvastatin Calcium (Lipitor) 40 mg PO DAILY [facility] Last Admin: 01/29/19 08:07 Dose: 40 mg Benzocaine/Menthol (Cepacol Sore Throat) 1 alysa PO Q3 PRN PRN Reason: Sore Throat Last Admin: 01/26/19 17:20 Dose: 1 alysa Clopidogrel Bisulfate (Plavix) 75 mg PO DAILY [facility] Last Admin: 01/25/19 08:46 Dose: 75 mg Ergocalciferol (Drisdol 50,000 Intl Units Cap) 1 cap PO FRI [facility] Last Admin: 01/25/19 08:48 Dose: 1 cap Ferrous Sulfate (Feosol) 325 mg PO BIDWM [facility] Last Admin: 01/29/19 08:06 Dose: 325 mg Fluconazole (Diflucan) 100 mg PO DAILY [facility]; Protocol Stop: 02/02/19 14:16 Last Admin: 01/29/19 08:06 Dose: 100 mg Fluticasone Propionate (Flonase) 2 spr PRIYA DAILY [facility] Last Admin: 01/29/19 08:06 Dose: 2 spr Loratadine (Claritin) 10 mg PO DAILY [facility] Last Admin: 01/29/19 08:06 Dose: 10 mg Memantine (Namenda) 10 mg PO BID [facility] Last Admin: 01/29/19 08:05 Dose: 10 mg Mesalamine (Rowasa Enema) 4 gm RC HS [facility] Last Admin: 01/28/19 21:08 Dose: 4 gm Metoprolol Tartrate (Lopressor) 25 mg PO Q12 [facility] Oxandrolone (Oxandrin) 5 mg PO BID [facility] Sitagliptin Phosphate (Januvia) 25 mg PO DAILY [facility] Last Admin: 01/29/19 08:06 Dose: 25 mg Sucralfate (Carafate Oral Susp) 1 gm PO QID [facility] Last Admin: 01/29/19 12:02 Dose: 1 gm Tamsulosin HCl (Flomax) 0.4 mg PO DAILY [facility] Last Admin: 01/29/19 08:05 Dose: 0.4 mg - Labs Labs: 01/29/19 06:15 01/29/19 06:15 - Constitutional Appears: No Acute Distress - Head Exam Head Exam: ATRAUMATIC, NORMOCEPHALIC - Eye Exam Additional comments: Conj. pale - ENT Exam ENT Exam: Mucous Membranes Moist - Respiratory Exam Respiratory Exam: NORMAL BREATHING PATTERN Additional comments: Lungs clear - Cardiovascular Exam Cardiovascular Exam: REGULAR RHYTHM - GI/Abdominal Exam GI & Abdominal Exam: Distended Additional comments: No tenderness - Extremities Exam Additional comments: No edema Assessment and Plan - Assessment and Plan (Free Text) Assessment: CKD. Hx/o renal Ca, Lt neohrectomy. Renal function is stable BP is again lower today. No symptoms. Monitor Sonal esophagitis on Diflucan GI bleed Hb stable Plan: Continue to monitor renal function, BP
[2019-01-29] MEDS ORDERED: Potassium Chloride 20 mEq ER Tab PO ONE ×2 (18:09→22:00)
--- NOTE | 2019-01-30 00:46 | CP.PCM.PN ---
Subjective - Date & Time of Evaluation Date of Evaluation: 01/29/19 Time of Evaluation: 09:00 - Subjective Subjective: Patient appears comfortable though still has problems ingesting solids. Objective - Vital Signs/Intake and Output Vital Signs (last 24 hours): Temp Pulse Resp BP Pulse Ox 98.8 F 76 20 115/62 96 01/29/19 21:27 01/29/19 21:27 01/29/19 21:27 01/29/19 21:27 01/29/19 21:27 Intake and Output: 01/29/19 01/30/19 18:59 06:59 Intake Total 860 Output Total 4 Balance 856 - Medications Medications: Current Medications Acetaminophen (Tylenol 325mg Tab) 325 mg PO Q6 PRN PRN Reason: Headache Last Admin: 01/26/19 10:24 Dose: 325 mg Amlodipine Besylate (Norvasc) 10 mg PO DAILY [facility] Last Admin: 01/25/19 11:06 Dose: Not Given Aspirin (Aspirin Chewable) 81 mg PO DAILY [facility] Last Admin: 01/25/19 08:48 Dose: 81 mg Atorvastatin Calcium (Lipitor) 40 mg PO DAILY [facility] Last Admin: 01/29/19 08:07 Dose: 40 mg Benzocaine/Menthol (Cepacol Sore Throat) 1 alysa PO Q3 PRN PRN Reason: Sore Throat Last Admin: 01/26/19 17:20 Dose: 1 alysa Clopidogrel Bisulfate (Plavix) 75 mg PO DAILY [facility] Last Admin: 01/25/19 08:46 Dose: 75 mg Ergocalciferol (Drisdol 50,000 Intl Units Cap) 1 cap PO FRI [facility] Last Admin: 01/25/19 08:48 Dose: 1 cap Ferrous Sulfate (Feosol) 325 mg PO BIDWM [facility] Last Admin: 01/29/19 16:03 Dose: 325 mg Fluconazole (Diflucan) 100 mg PO DAILY [facility]; Protocol Stop: 02/02/19 14:16 Last Admin: 01/29/19 08:06 Dose: 100 mg Fluticasone Propionate (Flonase) 2 spr PRIYA DAILY [facility] Last Admin: 01/29/19 08:06 Dose: 2 spr Loratadine (Claritin) 10 mg PO DAILY [facility] Last Admin: 01/29/19 08:06 Dose: 10 mg Memantine (Namenda) 10 mg PO BID [facility] Last Admin: 01/29/19 16:03 Dose: 10 mg Mesalamine (Rowasa Enema) 4 gm RC HS [facility] Last Admin: 01/29/19 21:25 Dose: 4 gm Metoprolol Tartrate (Lopressor) 25 mg PO Q12 [facility] Oxandrolone (Oxandrin) 5 mg PO BID [facility] Last Admin: 01/29/19 16:06 Dose: 5 mg Sitagliptin Phosphate (Januvia) 25 mg PO DAILY [facility] Last Admin: 01/29/19 08:06 Dose: 25 mg Sucralfate (Carafate Oral Susp) 1 gm PO QID [facility] Last Admin: 01/29/19 21:25 Dose: 1 gm Tamsulosin HCl (Flomax) 0.4 mg PO DAILY [facility] Last Admin: 01/29/19 08:05 Dose: 0.4 mg - Labs Labs: 01/29/19 06:15 01/29/19 06:15 - Head Exam Head Exam: ATRAUMATIC - Eye Exam Eye Exam: Normal appearance Pupil Exam: PERRL - ENT Exam ENT Exam: Normal Exam - Neck Exam Neck Exam: Full ROM - Respiratory Exam Respiratory Exam: Clear to Ausculation Bilateral - Cardiovascular Exam Cardiovascular Exam: REGULAR RHYTHM - GI/Abdominal Exam GI & Abdominal Exam: Soft. absent: Tenderness Assessment and Plan (1) Odynophagia Assessment & Plan: Severe latonya esophagitis on EGD. On fluconazole and sucralfate. Avoid PPIs. Status: Acute
[2019-01-30 06:36] LABS: BASO % 0.3 % (0.0-2.0); EOS # 0.1 K/uL (0.0-0.7); EOS % 1.2 % (0.0-4.0); HEMOGLOBIN 7.5 g/dL (12.0-18.0); LYMPH # 3.1 K/uL (1.0-4.3); LYMPH % 25.8 % (20.0-40.0); MEAN CELL VOLUME 76.2 fl (80.0-94.0); MEAN CORPUSCULAR HEMOGLOBIN 23.8 pg (27.0-31.0); MEAN CORPUSCULAR HGB CONC 31.3 g/dL (33.0-37.0); MEAN PLATELET VOLUME 8.4 fl (7.2-11.7); MONO # 0.8 K/uL (0.0-0.8); MONO % 6.7 % (0.0-10.0); NEUT # 8.1 K/uL (1.8-7.0); NRBC % 0.7 % (0.0-0.0); RBC 3.16 Mil/uL (4.40-5.90); RED CELL DISTRIBUTION WIDTH 17.7 % (11.5-14.5); WHITE BLOOD COUNT 12.2 K/uL (4.8-10.8)
[2019-01-30 07:04] LABS: CALCIUM 7.7 mg/dL (8.4-10.2)
[2019-01-30] MEDS: Sucralfate 1 gm/10 ml Oral Susp UD PO SCH ×4 (08:30→22:12)
--- NOTE | 2019-01-30 10:50 | CP.PCM.PN ---
<Maurice Hsu - Last Filed: 01/30/19 10:43> Subjective - Date & Time of Evaluation Date of Evaluation: 01/30/19 Time of Evaluation: 08:00 - Subjective Subjective: Pt seen and examined this morning with Dr. Mathew. States he did not eat much because of his throat pain but has tolerated fluids. Had diarrhea overnight, no reba blood in stool. Objective - Vital Signs/Intake and Output Vital Signs (last 24 hours): Temp Pulse Resp BP Pulse Ox 97.9 F 74 18 119/74 97 01/30/19 08:27 01/30/19 08:33 01/30/19 08:27 01/30/19 08:33 01/30/19 08:27 Intake and Output: 01/30/19 01/30/19 06:59 18:59 Output Total 300 Balance -300 - Medications Medications: Current Medications Acetaminophen (Tylenol 325mg Tab) 325 mg PO Q6 PRN PRN Reason: Headache Last Admin: 01/26/19 10:24 Dose: 325 mg Amlodipine Besylate (Norvasc) 10 mg PO DAILY [facility] Last Admin: 01/30/19 08:33 Dose: 10 mg Aspirin (Aspirin Chewable) 81 mg PO DAILY [facility] Last Admin: 01/30/19 08:29 Dose: 81 mg Atorvastatin Calcium (Lipitor) 40 mg PO DAILY [facility] Last Admin: 01/30/19 08:32 Dose: 40 mg Benzocaine/Menthol (Cepacol Sore Throat) 1 alysa PO Q3 PRN PRN Reason: Sore Throat Last Admin: 01/26/19 17:20 Dose: 1 alysa Clopidogrel Bisulfate (Plavix) 75 mg PO DAILY [facility] Last Admin: 01/30/19 08:36 Dose: 75 mg Ergocalciferol (Drisdol 50,000 Intl Units Cap) 1 cap PO FRI [facility] Last Admin: 01/25/19 08:48 Dose: 1 cap Ferrous Sulfate (Feosol) 325 mg PO BIDWM [facility] Last Admin: 01/30/19 08:31 Dose: 325 mg Fluconazole (Diflucan) 100 mg PO DAILY [facility]; Protocol Stop: 02/02/19 14:16 Last Admin: 01/30/19 08:31 Dose: 100 mg Fluticasone Propionate (Flonase) 2 spr PRIYA DAILY [facility] Last Admin: 01/30/19 08:31 Dose: 2 spr Iron Sucrose 100 mg/ Sodium (Chloride) 105 mls @ 105 mls/hr IVPB DAILY [facility] Stop: 02/03/19 09:59 Loratadine (Claritin) 10 mg PO DAILY [facility] Last Admin: 01/30/19 08:30 Dose: 10 mg Memantine (Namenda) 10 mg PO BID [facility] Last Admin: 01/30/19 08:32 Dose: 10 mg Mesalamine (Rowasa Enema) 4 gm RC HS [facility] Last Admin: 01/29/19 21:25 Dose: 4 gm Metoprolol Tartrate (Lopressor) 25 mg PO Q12 [facility] Oxandrolone (Oxandrin) 5 mg PO BID [facility] Last Admin: 01/30/19 08:35 Dose: 5 mg Potassium Phosphate (Potassium Phosphate) 1,000 mg PO ONCE ONE Stop: 01/30/19 10:41 Sitagliptin Phosphate (Januvia) 25 mg PO DAILY [facility] Last Admin: 01/30/19 08:32 Dose: 25 mg Sucralfate (Carafate Oral Susp) 1 gm PO QID [facility] Last Admin: 01/30/19 08:30 Dose: 1 gm Tamsulosin HCl (Flomax) 0.4 mg PO DAILY [facility] Last Admin: 01/30/19 08:31 Dose: 0.4 mg - Labs Labs: 01/30/19 05:35 01/30/19 05:35 - Constitutional Appears: No Acute Distress - Head Exam Head Exam: NORMAL INSPECTION - Eye Exam Eye Exam: Normal appearance - ENT Exam ENT Exam: Mucous Membranes Moist - Respiratory Exam Respiratory Exam: Clear to Ausculation Bilateral. absent: Rales, Wheezes - Cardiovascular Exam Cardiovascular Exam: REGULAR RHYTHM - GI/Abdominal Exam GI & Abdominal Exam: Soft, Normal Bowel Sounds - Extremities Exam Extremities Exam: Normal Inspection - Neurological Exam Neurological Exam: Alert, Normal Gait - Psychiatric Exam Psychiatric exam: Normal Affect - Skin Skin Exam: Normal Color Assessment and Plan - Assessment and Plan (Free Text) Assessment: 78 y/o male with PMH of Ulcerative colitis, HTN, Bladder Ca, Dementia, prediabetes and CVA in 2007 admitted to [facility] for evaluation and treatment of acute bloody diarrhea with R abdominal pain. CT evidence of left sided colitis and he was treated He was treated with Cipro and Flagyl for colitis and his GI bleed eventually resolved though diarrhea as been persistent which is chronic (Cdiff negative). He was found to have low hemoglobin levels that remained stable between 8-9. Subsequently during this admission he suffered an acute ischemic stroke for he was evaluated by neurology and cardiology and treated with dual antiplatelet therapy. 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 Pt was evaluated by PT and will be sent to subacute rehab for rehabilitation. #Acute CVA, resolved #GI Bleed, resolved #Esophagitis #UC, chronic #Hypokalemia - Hg stable 7.5 today. On oral iron. Will start IV Venofer for 5 days as pt may not be absorbing oral iron. - K-Phos for Hypokalemia - C/W ASA and Plavix for secondary stroke prevention - Diflucan for Esophagitis - [place] diet in setting of diarrhea - Management of chronic conditions as ordered - F/U am CBC, BMP, Mag, Phos - OT/PT/ST Discussed with Dr. Priyanka Hsu, PGY2 <Gatito Mathew - Last Filed: 02/06/19 06:14> Objective - Vital Signs/Intake and Output Vital Signs (last 24 hours): Temp Pulse Resp BP Pulse Ox 97.9 F 69 18 102/54 L 100 02/05/19 09:00 02/05/19 09:00 02/05/19 09:00 02/05/19 09:00 02/05/19 08:49 - Labs Labs: 02/05/19 05:40 02/05/19 05:40 Assessment and Plan - Assessment and Plan (Free Text) Assessment: Patient was personally seen and examined by me in rounds with residents. Available labs and diagnostic data reviewed. Case, Patient's condition and management plan discussed with residents in rounds. Agree with resident's progress note. Plan: As ordered.
--- NOTE | 2019-01-30 14:54 | CP.PCM.PN ---
Subjective - Date & Time of Evaluation Date of Evaluation: 01/30/19 Time of Evaluation: 01:30 - Subjective Subjective: Had large loose bowel movement today. No blood in stools reported. At this time Pt appears comfortable. No nausea or vomiting. Objective - Vital Signs/Intake and Output Vital Signs (last 24 hours): Temp Pulse Resp BP Pulse Ox 97.9 F 74 18 119/74 97 01/30/19 08:27 01/30/19 08:33 01/30/19 08:27 01/30/19 08:33 01/30/19 08:27 Intake and Output: 01/30/19 01/30/19 06:59 18:59 Intake Total 460 Output Total 300 Balance -300 460 - Medications Medications: Current Medications Acetaminophen (Tylenol 325mg Tab) 325 mg PO Q6 PRN PRN Reason: Headache Last Admin: 01/26/19 10:24 Dose: 325 mg Amlodipine Besylate (Norvasc) 10 mg PO DAILY [facility] Last Admin: 01/30/19 08:33 Dose: 10 mg Aspirin (Aspirin Chewable) 81 mg PO DAILY [facility] Last Admin: 01/30/19 08:29 Dose: 81 mg Atorvastatin Calcium (Lipitor) 40 mg PO DAILY [facility] Last Admin: 01/30/19 08:32 Dose: 40 mg Benzocaine/Menthol (Cepacol Sore Throat) 1 alysa PO Q3 PRN PRN Reason: Sore Throat Last Admin: 01/26/19 17:20 Dose: 1 alysa Clopidogrel Bisulfate (Plavix) 75 mg PO DAILY [facility] Last Admin: 01/30/19 08:36 Dose: 75 mg Ergocalciferol (Drisdol 50,000 Intl Units Cap) 1 cap PO FRI [facility] Last Admin: 01/25/19 08:48 Dose: 1 cap Ferrous Sulfate (Feosol) 325 mg PO BIDWM [facility] Last Admin: 01/30/19 08:31 Dose: 325 mg Fluconazole (Diflucan) 100 mg PO DAILY [facility]; Protocol Stop: 02/02/19 14:16 Last Admin: 01/30/19 08:31 Dose: 100 mg Fluticasone Propionate (Flonase) 2 spr PRIYA DAILY [facility] Last Admin: 01/30/19 08:31 Dose: 2 spr Iron Sucrose 100 mg/ Sodium (Chloride) 105 mls @ 105 mls/hr IVPB DAILY [facility] Stop: 02/03/19 09:59 Last Admin: 01/30/19 12:11 Dose: 105 mls/hr Loratadine (Claritin) 10 mg PO DAILY [facility] Last Admin: 01/30/19 08:30 Dose: 10 mg Memantine (Namenda) 10 mg PO BID [facility] Last Admin: 01/30/19 08:32 Dose: 10 mg Mesalamine (Rowasa Enema) 4 gm RC HS [facility] Last Admin: 01/29/19 21:25 Dose: 4 gm Metoprolol Tartrate (Lopressor) 25 mg PO Q12 [facility] Oxandrolone (Oxandrin) 5 mg PO BID [facility] Last Admin: 01/30/19 08:35 Dose: 5 mg Sitagliptin Phosphate (Januvia) 25 mg PO DAILY [facility] Last Admin: 01/30/19 08:32 Dose: 25 mg Sucralfate (Carafate Oral Susp) 1 gm PO QID [facility] Last Admin: 01/30/19 12:07 Dose: 1 gm Tamsulosin HCl (Flomax) 0.4 mg PO DAILY [facility] Last Admin: 01/30/19 08:31 Dose: 0.4 mg - Labs Labs: 01/30/19 05:35 01/30/19 05:35 - Constitutional Appears: No Acute Distress - Head Exam Head Exam: ATRAUMATIC, NORMOCEPHALIC - Eye Exam Additional comments: Conjunctiva pale - ENT Exam ENT Exam: Mucous Membranes Moist - Respiratory Exam Respiratory Exam: NORMAL BREATHING PATTERN Additional comments: Lungs clear - Cardiovascular Exam Cardiovascular Exam: REGULAR RHYTHM - GI/Abdominal Exam GI & Abdominal Exam: Distended - Extremities Exam Additional comments: No edema Assessment and Plan - Assessment and Plan (Free Text) Assessment: CKD/ Solitary Rt kidne . Hx/o RCC lt kidney Kidney function remains stable Hypokalemia supplement as needed Anemia Sonal esophagitis. Plan: Continue to monitor renal function. BP is stable.
[2019-01-30] MEDS: Cholestyramine 4 gm/Pkt UD PO SCH (16:43)
--- NOTE | 2019-01-30 18:07 | CP.PCM.PN ---
Subjective - Date & Time of Evaluation Date of Evaluation: 01/30/19 Time of Evaluation: 17:55 - Subjective Subjective: Patient w/o complaint of throat pain today. Objective - Vital Signs/Intake and Output Vital Signs (last 24 hours): Temp Pulse Resp BP Pulse Ox 97.9 F 74 18 119/74 95 01/30/19 08:27 01/30/19 08:33 01/30/19 08:27 01/30/19 08:33 01/30/19 11:44 Intake and Output: 01/30/19 01/30/19 06:59 18:59 Intake Total 460 Output Total 300 Balance -300 460 - Medications Medications: Current Medications Acetaminophen (Tylenol 325mg Tab) 325 mg PO Q6 PRN PRN Reason: Headache Last Admin: 01/26/19 10:24 Dose: 325 mg Amlodipine Besylate (Norvasc) 10 mg PO DAILY [facility] Last Admin: 01/30/19 08:33 Dose: 10 mg Aspirin (Aspirin Chewable) 81 mg PO DAILY [facility] Last Admin: 01/30/19 08:29 Dose: 81 mg Atorvastatin Calcium (Lipitor) 40 mg PO DAILY [facility] Last Admin: 01/30/19 08:32 Dose: 40 mg Benzocaine/Menthol (Cepacol Sore Throat) 1 alysa PO Q3 PRN PRN Reason: Sore Throat Last Admin: 01/26/19 17:20 Dose: 1 alysa Cholestyramine Resin (Questran) 4 gm PO DAILY [facility] Last Admin: 01/30/19 16:43 Dose: 4 gm Clopidogrel Bisulfate (Plavix) 75 mg PO DAILY [facility] Last Admin: 01/30/19 08:36 Dose: 75 mg Ergocalciferol (Drisdol 50,000 Intl Units Cap) 1 cap PO FRI [facility] Last Admin: 01/25/19 08:48 Dose: 1 cap Ferrous Sulfate (Feosol) 325 mg PO BIDWM [facility] Last Admin: 01/30/19 16:26 Dose: 325 mg Fluconazole (Diflucan) 100 mg PO DAILY [facility]; Protocol Stop: 02/02/19 14:16 Last Admin: 01/30/19 08:31 Dose: 100 mg Fluticasone Propionate (Flonase) 2 spr PRIYA DAILY [facility] Last Admin: 01/30/19 08:31 Dose: 2 spr Iron Sucrose 100 mg/ Sodium (Chloride) 105 mls @ 105 mls/hr IVPB DAILY [facility] Stop: 02/03/19 09:59 Last Admin: 01/30/19 12:11 Dose: 105 mls/hr Loratadine (Claritin) 10 mg PO DAILY [facility] Last Admin: 01/30/19 08:30 Dose: 10 mg Memantine (Namenda) 10 mg PO BID [facility] Last Admin: 01/30/19 16:26 Dose: 10 mg Mesalamine (Rowasa Enema) 4 gm RC HS [facility] Last Admin: 01/29/19 21:25 Dose: 4 gm Metoprolol Tartrate (Lopressor) 25 mg PO Q12 [facility] Oxandrolone (Oxandrin) 5 mg PO BID [facility] Last Admin: 01/30/19 16:30 Dose: 5 mg Sitagliptin Phosphate (Januvia) 25 mg PO DAILY [facility] Last Admin: 01/30/19 08:32 Dose: 25 mg Sucralfate (Carafate Oral Susp) 1 gm PO QID [facility] Last Admin: 01/30/19 16:26 Dose: 1 gm Tamsulosin HCl (Flomax) 0.4 mg PO DAILY [facility] Last Admin: 01/30/19 08:31 Dose: 0.4 mg - Labs Labs: 01/30/19 05:35 01/30/19 05:35 - Head Exam Head Exam: ATRAUMATIC - Eye Exam Eye Exam: Normal appearance - ENT Exam ENT Exam: Normal Exam - Neck Exam Neck Exam: Full ROM - Respiratory Exam Respiratory Exam: Clear to Ausculation Bilateral, NORMAL BREATHING PATTERN - Cardiovascular Exam Cardiovascular Exam: REGULAR RHYTHM, +S1, +S2 - GI/Abdominal Exam GI & Abdominal Exam: Soft, Normal Bowel Sounds Assessment and Plan (1) Odynophagia Assessment & Plan: Endoscopic biopsies and cytology c/w latonya esophagitis. Doing better with sucr alfate and fluconazole. Swallowing is improving Status: Acute (2) Diarrhea Assessment & Plan: Over the past 1-2 days stools have been loose. Last BM was noontime today. Cholestyramine started and stool specimens sent. Status: Acute
[2019-01-31 06:40] LABS: BASO % 0.3 % (0.0-2.0); EOS # 0.2 K/uL (0.0-0.7); EOS % 1.9 % (0.0-4.0); HEMOGLOBIN 7.5 g/dL (12.0-18.0); LYMPH # 3.3 K/uL (1.0-4.3); LYMPH % 29.8 % (20.0-40.0); MEAN CELL VOLUME 75.9 fl (80.0-94.0); MEAN CORPUSCULAR HEMOGLOBIN 24.5 pg (27.0-31.0); MEAN CORPUSCULAR HGB CONC 32.3 g/dL (33.0-37.0); MEAN PLATELET VOLUME 8.8 fl (7.2-11.7); MONO # 0.8 K/uL (0.0-0.8); MONO % 7.2 % (0.0-10.0); NEUT # 6.7 K/uL (1.8-7.0); NEUT % 60.8 % (50.0-75.0); NRBC % 0.4 % (0.0-0.0); RBC 3.07 Mil/uL (4.40-5.90); RED CELL DISTRIBUTION WIDTH 17.7 % (11.5-14.5)
[2019-01-31 07:03] LABS: CALCIUM 7.5 mg/dL (8.4-10.2)
[2019-01-31] MEDS: Sucralfate 1 gm/10 ml Oral Susp UD PO SCH ×4 (08:20→21:37)
[2019-01-31] MEDS: Cholestyramine 4 gm/Pkt UD PO SCH (08:22)
--- NOTE | 2019-01-31 11:15 | CP.PCM.PN ---
<Maurice Hsu - Last Filed: 01/31/19 11:03> Subjective - Date & Time of Evaluation Date of Evaluation: 01/31/19 Time of Evaluation: 07:15 - Subjective Subjective: Pt seen and examined this morning. Reports diarrhea and mild abdominal pain. Overnight RN reports continued diarrhea. Has been tolerating fluids. Objective - Vital Signs/Intake and Output Vital Signs (last 24 hours): Temp Pulse Resp BP Pulse Ox 98.1 F 77 19 129/77 98 01/31/19 10:00 01/31/19 10:00 01/31/19 10:00 01/31/19 10:00 01/31/19 10:00 Intake and Output: 01/31/19 01/31/19 06:59 18:59 Intake Total 200 Balance 200 - Medications Medications: Current Medications Acetaminophen (Tylenol 325mg Tab) 325 mg PO Q6 PRN PRN Reason: Headache Last Admin: 01/26/19 10:24 Dose: 325 mg Amlodipine Besylate (Norvasc) 10 mg PO DAILY [facility] Last Admin: 01/31/19 08:22 Dose: 10 mg Aspirin (Aspirin Chewable) 81 mg PO DAILY [facility] Last Admin: 01/31/19 08:20 Dose: 81 mg Atorvastatin Calcium (Lipitor) 40 mg PO DAILY [facility] Last Admin: 01/31/19 08:20 Dose: 40 mg Benzocaine/Menthol (Cepacol Sore Throat) 1 alysa PO Q3 PRN PRN Reason: Sore Throat Last Admin: 01/26/19 17:20 Dose: 1 alysa Cholestyramine Resin (Questran) 4 gm PO DAILY [facility] Last Admin: 01/31/19 08:22 Dose: 4 gm Clopidogrel Bisulfate (Plavix) 75 mg PO DAILY [facility] Last Admin: 01/31/19 08:19 Dose: 75 mg Ergocalciferol (Drisdol 50,000 Intl Units Cap) 1 cap PO FRI [facility] Last Admin: 01/25/19 08:48 Dose: 1 cap Ferrous Sulfate (Feosol) 325 mg PO BIDWM [facility] Last Admin: 01/31/19 08:19 Dose: 325 mg Fluconazole (Diflucan) 100 mg PO DAILY [facility]; Protocol Stop: 02/02/19 14:16 Last Admin: 01/31/19 08:20 Dose: 100 mg Fluticasone Propionate (Flonase) 2 spr PRIYA DAILY [facility] Last Admin: 01/31/19 08:18 Dose: 2 spr Iron Sucrose 100 mg/ Sodium (Chloride) 105 mls @ 105 mls/hr IVPB DAILY [facility] Stop: 02/03/19 09:59 Last Admin: 01/30/19 12:11 Dose: 105 mls/hr Loratadine (Claritin) 10 mg PO DAILY [facility] Last Admin: 01/31/19 08:20 Dose: 10 mg Memantine (Namenda) 10 mg PO BID [facility] Last Admin: 01/31/19 08:21 Dose: 10 mg Mesalamine (Rowasa Enema) 4 gm RC HS [facility] Last Admin: 01/30/19 22:12 Dose: 4 gm Metoprolol Tartrate (Lopressor) 25 mg PO Q12 [facility] Oxandrolone (Oxandrin) 5 mg PO BID [facility] Last Admin: 01/31/19 08:24 Dose: 5 mg Sitagliptin Phosphate (Januvia) 25 mg PO DAILY [facility] Last Admin: 01/31/19 08:19 Dose: 25 mg Sucralfate (Carafate Oral Susp) 1 gm PO QID [facility] Last Admin: 01/31/19 08:20 Dose: 1 gm Tamsulosin HCl (Flomax) 0.4 mg PO DAILY [facility] Last Admin: 01/31/19 08:19 Dose: 0.4 mg - Labs Labs: 01/31/19 05:15 01/31/19 05:15 - Constitutional Appears: No Acute Distress - Head Exam Head Exam: NORMAL INSPECTION - Eye Exam Eye Exam: Normal appearance - ENT Exam ENT Exam: Mucous Membranes Moist - Respiratory Exam Respiratory Exam: Clear to Ausculation Bilateral. absent: Rales, Wheezes - Cardiovascular Exam Cardiovascular Exam: REGULAR RHYTHM - GI/Abdominal Exam GI & Abdominal Exam: Distended, Soft, Tenderness (mild tenderness to palpation), Normal Bowel Sounds. absent: Guarding, Rigid - Neurological Exam Neurological Exam: Alert, Awake, Normal Gait, Oriented x3 - Psychiatric Exam Psychiatric exam: Normal Affect - Skin Skin Exam: Normal Color Assessment and Plan - Assessment and Plan (Free Text) Assessment: 78 y/o male with PMH of Ulcerative colitis, HTN, Bladder Ca, Dementia, prediabetes and CVA in 2007 recently admitted to [facility] for evaluation and treatment of acute bloody diarrhea with R abdominal pain. CT evidence of left sided colitis and he was treated He was treated with Cipro and Flagyl for colitis and his GI bleed eventually resolved though diarrhea as been persistent which is chronic (Cdiff negative). He was found to have low hemoglobin levels that remained stable between 8-9. Subsequently during this admission he suf fered an acute ischemic stroke for he was evaluated by neurology and cardiology and treated with dual antiplatelet therapy. 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 Pt was evaluated by PT and now in subacute rehab for rehabilitation. #Acute CVA, resolved #GI Bleed, resolved #Esophagitis, acute #UC, chronic #Hypokalemia # Anemia, chronic -GI on board; started Cholestyramine and stool leukocytes and fat sent - Rectal tube ordered to decompress as abdomen was slightly distended this morning, may be Ileus (?) - [place] diet in setting of diarrhea - Hg stable 7.5 today. IV Venofer day 2/5 - K-Phos for Hypokalemia today; likely from GI loss - C/W ASA and Plavix for secondary stroke prevention - Diflucan for Esophagitis - Management of chronic conditions as ordered - F/U am CBC, BMP, Mag, Phos - OT/PT/ST- Recommendations to continue PT and dispo home w/ services Discussed with Dr. Priyanka Hsu, PGY2 <Gatito Mathew K - Last Filed: 02/01/19 23:29> Objective - Vital Signs/Intake and Output Vital Signs (last 24 hours): Temp Pulse Resp BP Pulse Ox 98.0 F 79 20 104/56 L 99 02/01/19 20:00 02/01/19 21:27 02/01/19 20:00 02/01/19 21:27 02/01/19 20:00 Intake and Output: 02/01/19 02/01/19 11:59 23:59 Intake Total 240 1100 Output Total 400 325 Balance -160 775 - Medications Medications: Current Medications Acetaminophen (Tylenol 325mg Tab) 325 mg PO Q6 PRN PRN Reason: Headache Last Admin: 01/26/19 10:24 Dose: 325 mg Amlodipine Besylate (Norvasc) 10 mg PO DAILY [facility] Last Admin: 02/01/19 09:29 Dose: 10 mg Aspirin (Aspirin Chewable) 81 mg PO DAILY [facility] Last Admin: 02/01/19 09:12 Dose: 81 mg Atorvastatin Calcium (Lipitor) 40 mg PO DAILY [facility] Last Admin: 02/01/19 09:15 Dose: 40 mg Benzocaine/Menthol (Cepacol Sore Throat) 1 alysa PO Q3 PRN PRN Reason: Sore Throat Last Admin: 01/26/19 17:20 Dose: 1 alysa Clopidogrel Bisulfate (Plavix) 75 mg PO DAILY [facility] Last Admin: 02/01/19 09:17 Dose: 75 mg Dimethicone (Proshield Plus Skin Protectant) 1 applic TOP Q8 PRN PRN Reason: Moisture associated wound Last Admin: 02/01/19 17:21 Dose: 1 applic Ergocalciferol (Drisdol 50,000 Intl Units Cap) 1 cap PO FRI [facility] Last Admin: 02/01/19 09:14 Dose: 1 cap Fluconazole (Diflucan) 100 mg PO DAILY [facility]; Protocol Stop: 02/02/19 14:16 Last Admin: 02/01/19 09:14 Dose: 100 mg Fluticasone Propionate (Flonase) 2 spr PRIYA DAILY [facility] Last Admin: 02/01/19 09:13 Dose: 2 spr Iron Sucrose 100 mg/ Sodium (Chloride) 105 mls @ 105 mls/hr IVPB DAILY [facility] Stop: 02/03/19 09:59 Last Admin: 02/01/19 12:21 Dose: 105 mls/hr Loratadine (Claritin) 10 mg PO DAILY [facility] Last Admin: 02/01/19 09:14 Dose: 10 mg Memantine (Namenda) 10 mg PO BID [facility] Last Admin: 02/01/19 17:20 Dose: 10 mg Mesalamine (Rowasa Enema) 4 gm RC HS [facility] Last Admin: 02/01/19 21:28 Dose: 4 gm Metoprolol Tartrate (Lopressor) 25 mg PO Q12 [facility] Last Admin: 02/01/19 21:27 Dose: 25 mg Oxandrolone (Oxandrin) 5 mg PO BID [facility] Last Admin: 02/01/19 17:25 Dose: 5 mg Sitagliptin Phosphate (Januvia) 25 mg PO DAILY [facility] Last Admin: 02/01/19 09:13 Dose: 25 mg Sucralfate (Carafate Oral Susp) 1 gm PO QID [facility] Last Admin: 02/01/19 21:28 Dose: 1 gm Tamsulosin HCl (Flomax) 0.4 mg PO DAILY [facility] Last Admin: 02/01/19 09:12 Dose: 0.4 mg - Labs Labs: 02/01/19 05:12 02/01/19 05:12 Assessment and Plan - Assessment and Plan (Free Text) Assessment: Patient was personally seen and examined by me in rounds with residents. Available labs and diagnostic data reviewed. Case, Patient's condition and management plan discussed with residents in rounds. Agree with resident's progress note. Plan: As ordered.
--- NOTE | 2019-01-31 13:07 | CP.PCM.PN ---
Subjective - Date & Time of Evaluation Date of Evaluation: 01/31/19 Time of Evaluation: 01:00 - Subjective Subjective: Appears comfortable in bed Objective - Vital Signs/Intake and Output Vital Signs (last 24 hours): Temp Pulse Resp BP Pulse Ox 98.1 F 77 19 129/77 98 01/31/19 10:00 01/31/19 10:00 01/31/19 10:00 01/31/19 10:00 01/31/19 10:00 Intake and Output: 01/31/19 01/31/19 06:59 18:59 Intake Total 200 Balance 200 - Medications Medications: Current Medications Acetaminophen (Tylenol 325mg Tab) 325 mg PO Q6 PRN PRN Reason: Headache Last Admin: 01/26/19 10:24 Dose: 325 mg Amlodipine Besylate (Norvasc) 10 mg PO DAILY [facility] Last Admin: 01/31/19 08:22 Dose: 10 mg Aspirin (Aspirin Chewable) 81 mg PO DAILY [facility] Last Admin: 01/31/19 08:20 Dose: 81 mg Atorvastatin Calcium (Lipitor) 40 mg PO DAILY [facility] Last Admin: 01/31/19 08:20 Dose: 40 mg Benzocaine/Menthol (Cepacol Sore Throat) 1 alysa PO Q3 PRN PRN Reason: Sore Throat Last Admin: 01/26/19 17:20 Dose: 1 alysa Cholestyramine Resin (Questran) 4 gm PO DAILY [facility] Last Admin: 01/31/19 08:22 Dose: 4 gm Clopidogrel Bisulfate (Plavix) 75 mg PO DAILY [facility] Last Admin: 01/31/19 08:19 Dose: 75 mg Ergocalciferol (Drisdol 50,000 Intl Units Cap) 1 cap PO FRI [facility] Last Admin: 01/25/19 08:48 Dose: 1 cap Ferrous Sulfate (Feosol) 325 mg PO BIDWM [facility] Last Admin: 01/31/19 08:19 Dose: 325 mg Fluconazole (Diflucan) 100 mg PO DAILY [facility]; Protocol Stop: 02/02/19 14:16 Last Admin: 01/31/19 08:20 Dose: 100 mg Fluticasone Propionate (Flonase) 2 spr PRIYA DAILY [facility] Last Admin: 01/31/19 08:18 Dose: 2 spr Iron Sucrose 100 mg/ Sodium (Chloride) 105 mls @ 105 mls/hr IVPB DAILY [facility] Stop: 02/03/19 09:59 Last Admin: 01/31/19 09:16 Dose: 105 mls/hr Loratadine (Claritin) 10 mg PO DAILY [facility] Last Admin: 01/31/19 08:20 Dose: 10 mg Memantine (Namenda) 10 mg PO BID [facility] Last Admin: 01/31/19 08:21 Dose: 10 mg Mesalamine (Rowasa Enema) 4 gm RC HS [facility] Last Admin: 01/30/19 22:12 Dose: 4 gm Metoprolol Tartrate (Lopressor) 25 mg PO Q12 [facility] Oxandrolone (Oxandrin) 5 mg PO BID [facility] Last Admin: 01/31/19 08:24 Dose: 5 mg Potassium Phosphate (Potassium Phosphate) 1,000 mg PO QID [facility] Stop: 02/01/19 13:01 Last Admin: 01/31/19 12:34 Dose: 1,000 mg Sitagliptin Phosphate (Januvia) 25 mg PO DAILY [facility] Last Admin: 01/31/19 08:19 Dose: 25 mg Sucralfate (Carafate Oral Susp) 1 gm PO QID [facility] Last Admin: 01/31/19 12:35 Dose: 1 gm Tamsulosin HCl (Flomax) 0.4 mg PO DAILY [facility] Last Admin: 01/31/19 08:19 Dose: 0.4 mg - Labs Labs: 01/31/19 05:15 01/31/19 05:15 - Constitutional Appears: No Acute Distress - Eye Exam Additional comments: Conjunctiva pale. - ENT Exam ENT Exam: Mucous Membranes Moist - Respiratory Exam Respiratory Exam: NORMAL BREATHING PATTERN Additional comments: Lungs clear - Cardiovascular Exam Cardiovascular Exam: REGULAR RHYTHM - GI/Abdominal Exam Additional comments: Softly distended. Mild diffuse tenderness. No guarding. - Extremities Exam Additional comments: No ECC Assessment and Plan - Assessment and Plan (Free Text) Assessment: CKD. Lt nephrectomy, RCC Creat is stable Hypokalemia Anemia Plan: Supplement K+ as needed BP stable Continue to monitor renal function PTH in normal range.
--- NOTE | 2019-01-31 18:06 | CP.PCM.PN ---
Subjective - Date & Time of Evaluation Date of Evaluation: 01/31/19 Time of Evaluation: 18:05 - Subjective Subjective: Rodri Loya, born 1940 who has been admitted to [facility] acute inpatient rehabilitation. Had GI bleed and abdominal distention. +TAILOR'S AIDE and work up revealed a right MCA acute infarct. Right hand dominant. No pain Objective - Vital Signs/Intake and Output Vital Signs (last 24 hours): Temp Pulse Resp BP Pulse Ox 98.1 F 77 19 129/77 98 01/31/19 10:00 01/31/19 10:00 01/31/19 10:00 01/31/19 10:00 01/31/19 10:00 Intake and Output: 01/31/19 01/31/19 06:59 18:59 Intake Total 200 850 Balance 200 850 - Medications Medications: Current Medications Acetaminophen (Tylenol 325mg Tab) 325 mg PO Q6 PRN PRN Reason: Headache Last Admin: 01/26/19 10:24 Dose: 325 mg Amlodipine Besylate (Norvasc) 10 mg PO DAILY [facility] Last Admin: 01/31/19 08:22 Dose: 10 mg Aspirin (Aspirin Chewable) 81 mg PO DAILY [facility] Last Admin: 01/31/19 08:20 Dose: 81 mg Atorvastatin Calcium (Lipitor) 40 mg PO DAILY [facility] Last Admin: 01/31/19 08:20 Dose: 40 mg Benzocaine/Menthol (Cepacol Sore Throat) 1 alysa PO Q3 PRN PRN Reason: Sore Throat Last Admin: 01/26/19 17:20 Dose: 1 alysa Cholestyramine Resin (Questran) 4 gm PO DAILY [facility] Last Admin: 01/31/19 08:22 Dose: 4 gm Clopidogrel Bisulfate (Plavix) 75 mg PO DAILY [facility] Last Admin: 01/31/19 08:19 Dose: 75 mg Ergocalciferol (Drisdol 50,000 Intl Units Cap) 1 cap PO FRI [facility] Last Admin: 01/25/19 08:48 Dose: 1 cap Ferrous Sulfate (Feosol) 325 mg PO BIDWM [facility] Last Admin: 01/31/19 16:42 Dose: 325 mg Fluconazole (Diflucan) 100 mg PO DAILY [facility]; Protocol Stop: 02/02/19 14:16 Last Admin: 01/31/19 08:20 Dose: 100 mg Fluticasone Propionate (Flonase) 2 spr PIRYA DAILY [facility] Last Admin: 01/31/19 08:18 Dose: 2 spr Iron Sucrose 100 mg/ Sodium (Chloride) 105 mls @ 105 mls/hr IVPB DAILY [facility] Stop: 02/03/19 09:59 Last Admin: 01/31/19 09:16 Dose: 105 mls/hr Loratadine (Claritin) 10 mg PO DAILY [facility] Last Admin: 01/31/19 08:20 Dose: 10 mg Memantine (Namenda) 10 mg PO BID [facility] Last Admin: 01/31/19 16:43 Dose: 10 mg Mesalamine (Rowasa Enema) 4 gm RC HS [facility] Last Admin: 01/30/19 22:12 Dose: 4 gm Metoprolol Tartrate (Lopressor) 25 mg PO Q12 [facility] Oxandrolone (Oxandrin) 5 mg PO BID [facility] Last Admin: 01/31/19 16:44 Dose: 5 mg Potassium Phosphate (Potassium Phosphate) 1,000 mg PO QID [facility] Stop: 02/01/19 13:01 Last Admin: 01/31/19 16:44 Dose: 1,000 mg Sitagliptin Phosphate (Januvia) 25 mg PO DAILY [facility] Last Admin: 01/31/19 08:19 Dose: 25 mg Sucralfate (Carafate Oral Susp) 1 gm PO QID [facility] Last Admin: 01/31/19 16:45 Dose: 1 gm Tamsulosin HCl (Flomax) 0.4 mg PO DAILY [facility] Last Admin: 01/31/19 08:19 Dose: 0.4 mg - Labs Labs: 01/31/19 05:15 01/31/19 05:15 - Constitutional Appears: Non-toxic, No Acute Distress - Head Exam Head Exam: ATRAUMATIC, NORMAL INSPECTION, NORMOCEPHALIC - Eye Exam Eye Exam: EOMI - ENT Exam ENT Exam: Mucous Membranes Moist - Respiratory Exam Respiratory Exam: NORMAL BREATHING PATTERN - Cardiovascular Exam Cardiovascular Exam: REGULAR RHYTHM - GI/Abdominal Exam GI & Abdominal Exam: Distended, Soft. absent: Firm, Guarding - Extremities Exam Extremities Exam: absent: Calf Tenderness - Neurological Exam Neurological Exam: Alert - Psychiatric Exam Psychiatric exam: Normal Affect, Normal Mood - Skin Skin Exam: Warm Assessment and Plan - Assessment and Plan (Free Text) Assessment: Rodri Loya, born 1940 who has been admitted to [facility] acute inpatient rehabilitation. Had GI bleed and abdominal distention. +TAILOR'S AIDE and work up revealed a right MCA acute infarct. Right hand dominant. PT/OT to continue to help increase functional independence Team conference for d/c planning Pain: controlled Vascular: no evidence of DVT GI: No evidence of constipation or diarrhea Patient continues to be an excellent acute rehabilitation candidate and will have continued focused speech, PT, OT and recreational therapy to help facilitate a safe and appropriate d/c plan
--- NOTE | 2019-01-31 23:15 | CP.PCM.PN ---
Subjective - Date & Time of Evaluation Date of Evaluation: 01/31/19 Time of Evaluation: 09:00 - Subjective Subjective: No c/o throat pain. Eating is improved. Objective - Vital Signs/Intake and Output Vital Signs (last 24 hours): Temp Pulse Resp BP Pulse Ox 98.4 F 74 20 110/56 L 97 01/31/19 19:46 01/31/19 21:45 01/31/19 19:46 01/31/19 21:45 01/31/19 19:46 Intake and Output: 01/31/19 02/01/19 18:59 06:59 Intake Total 850 Balance 850 - Medications Medications: Current Medications Acetaminophen (Tylenol 325mg Tab) 325 mg PO Q6 PRN PRN Reason: Headache Last Admin: 01/26/19 10:24 Dose: 325 mg Amlodipine Besylate (Norvasc) 10 mg PO DAILY [facility] Last Admin: 01/31/19 08:22 Dose: 10 mg Aspirin (Aspirin Chewable) 81 mg PO DAILY [facility] Last Admin: 01/31/19 08:20 Dose: 81 mg Atorvastatin Calcium (Lipitor) 40 mg PO DAILY [facility] Last Admin: 01/31/19 08:20 Dose: 40 mg Benzocaine/Menthol (Cepacol Sore Throat) 1 alysa PO Q3 PRN PRN Reason: Sore Throat Last Admin: 01/26/19 17:20 Dose: 1 alysa Cholestyramine Resin (Questran) 4 gm PO DAILY [facility] Last Admin: 01/31/19 08:22 Dose: 4 gm Clopidogrel Bisulfate (Plavix) 75 mg PO DAILY [facility] Last Admin: 01/31/19 08:19 Dose: 75 mg Ergocalciferol (Drisdol 50,000 Intl Units Cap) 1 cap PO FRI [facility] Last Admin: 01/25/19 08:48 Dose: 1 cap Ferrous Sulfate (Feosol) 325 mg PO BIDWM [facility] Last Admin: 01/31/19 16:42 Dose: 325 mg Fluconazole (Diflucan) 100 mg PO DAILY [facility]; Protocol Stop: 02/02/19 14:16 Last Admin: 01/31/19 08:20 Dose: 100 mg Fluticasone Propionate (Flonase) 2 spr PRIYA DAILY [facility] Last Admin: 01/31/19 08:18 Dose: 2 spr Iron Sucrose 100 mg/ Sodium (Chloride) 105 mls @ 105 mls/hr IVPB DAILY [facility] Stop: 02/03/19 09:59 Last Admin: 01/31/19 09:16 Dose: 105 mls/hr Loratadine (Claritin) 10 mg PO DAILY [facility] Last Admin: 01/31/19 08:20 Dose: 10 mg Memantine (Namenda) 10 mg PO BID [facility] Last Admin: 01/31/19 16:43 Dose: 10 mg Mesalamine (Rowasa Enema) 4 gm RC HS [facility] Last Admin: 01/31/19 21:51 Dose: 4 gm Metoprolol Tartrate (Lopressor) 25 mg PO Q12 [facility] Last Admin: 01/31/19 21:45 Dose: 25 mg Oxandrolone (Oxandrin) 5 mg PO BID [facility] Last Admin: 01/31/19 16:44 Dose: 5 mg Potassium Phosphate (Potassium Phosphate) 1,000 mg PO QID [facility] Stop: 02/01/19 13:01 Last Admin: 01/31/19 21:51 Dose: 1,000 mg Sitagliptin Phosphate (Januvia) 25 mg PO DAILY [facility] Last Admin: 01/31/19 08:19 Dose: 25 mg Sucralfate (Carafate Oral Susp) 1 gm PO QID [facility] Last Admin: 01/31/19 21:37 Dose: 1 gm Tamsulosin HCl (Flomax) 0.4 mg PO DAILY [facility] Last Admin: 01/31/19 08:19 Dose: 0.4 mg - Labs Labs: 01/31/19 05:15 01/31/19 05:15 - Head Exam Head Exam: ATRAUMATIC - Eye Exam Eye Exam: Normal appearance - ENT Exam ENT Exam: Normal Exam - Respiratory Exam Respiratory Exam: Clear to Ausculation Bilateral - GI/Abdominal Exam GI & Abdominal Exam: Soft. absent: Tenderness Assessment and Plan (1) Odynophagia Assessment & Plan: Due to severe esophageal candidiasis. Responding to current treatment with fluconazole and sucralfate suspension. Status: Acute (2) Diarrhea Status: Acute
--- NOTE | 2019-02-01 00:17 | CP.PCM.PCO ---
Addendum Addendum: 02/01/19 00:04 The short story writer was called to evaluate this 78 y/o as he is declining rectal tube placement. Rectal tube order placed this morning. Pt has been declining during the day. --Pt was evaluated and examined by bedside. Interview performed in [place]. Pt reports no abdominal pain at this moment, is tolerating PO, passing gasses, had a semi-liquid dark BM a few hours ago. Pt denies nausea or vomiting. On exam, pt is resting comfortably in bed, abdomen is soft, distended, no guarding, no rebound tenderness. --Pt was counseled about the benefits and risk of rectal tube placement. Pt reported understanding. Pt declines rectal tube placement. Pt instructed to further discuss with his admitting doctor tomorrow.
[2019-02-01 06:15] LABS: BASO % 0.2 % (0.0-2.0); EOS # 0.1 K/uL (0.0-0.7); EOS % 1.2 % (0.0-4.0); HEMOGLOBIN 7.3 g/dL (12.0-18.0); LYMPH # 3.2 K/uL (1.0-4.3); LYMPH % 31.1 % (20.0-40.0); MEAN CELL VOLUME 75.4 fl (80.0-94.0); MEAN CORPUSCULAR HEMOGLOBIN 24.6 pg (27.0-31.0); MEAN CORPUSCULAR HGB CONC 32.7 g/dL (33.0-37.0); MEAN PLATELET VOLUME 8.6 fl (7.2-11.7); MONO # 0.6 K/uL (0.0-0.8); MONO % 5.9 % (0.0-10.0); NEUT # 6.4 K/uL (1.8-7.0); NEUT % 61.6 % (50.0-75.0); NRBC % 0.3 % (0.0-0.0); RBC 2.95 Mil/uL (4.40-5.90); WHITE BLOOD COUNT 10.4 K/uL (4.8-10.8)
[2019-02-01 06:53] LABS: ALB/GLOB RATIO 0.7 (1.0-2.1); ALBUMIN 2.2 g/dL (3.5-5.0); CALCIUM 7.6 mg/dL (8.4-10.2)
[2019-02-01] MEDS ORDERED: Potassium Chloride 20 mEq ER Tab PO ONE (07:35)
[2019-02-01] MEDS: Sucralfate 1 gm/10 ml Oral Susp UD PO SCH ×4 (09:11→21:28)
[2019-02-01] MEDS: Ergocalciferol 50,000 Intl Units Cap PO SCH (09:14)
[2019-02-01] MEDS: Cholestyramine 4 gm/Pkt UD PO SCH (09:17)
--- NOTE | 2019-02-01 11:22 | PN ---
DATE: 02/01/2019 SUBJECTIVE: The patient is seen and examined. Interim events noted. Consults noted and appreciated. Administrative Coordinator, rehab, and Nephrology followup and intervention noted and appreciated. The patient remains in acute rehab unit. Feels much better, no chest pain. No shortness of breath. No abdominal pain. No diarrhea. No constipation. PHYSICAL EXAMINATION: GENERAL: The patient is in no acute distress. VITAL SIGNS: Stable. HEART EXAM: S1 and S2. Normal and regular. LUNGS: Good bilateral air exchange. ABDOMEN: remains gaseous distention, but no sign of acute abdomen. No guarding. No rigidity. No rebound. No tenderness. Bowel sounds are present and normal. The patient is moving bowels and passing gas. EXTREMITIES: No edema. No calf swelling. No tenderness. No acute ischemia. CENTRAL NERVOUS SYSTEM: Exam is essentially unchanged. DIAGNOSTIC DATA: Available diagnostic data reviewed. Potassium is 3.2. Other diagnostic data are acceptable, hemoglobin is 7.3, platelet count is stable and . ASSESSMENT AND PLAN: Plan as ordered. Case and plan discussed with the patient. Gatito Mathew MD
--- NOTE | 2019-02-01 15:38 | CP.PCM.PN ---
Subjective - Date & Time of Evaluation Date of Evaluation: 02/01/19 Time of Evaluation: 15:37 - Subjective Subjective: patient seen in the room denies sob/cp abdomen remains distended yet non-tender and no guarding continue therapies lungs CTA no cyanosis or jaundice Objective - Vital Signs/Intake and Output Vital Signs (last 24 hours): Temp Pulse Resp BP Pulse Ox 98.2 F 70 18 108/52 L 96 02/01/19 10:00 02/01/19 10:00 02/01/19 10:00 02/01/19 10:00 02/01/19 10:00 Intake and Output: 02/01/19 02/01/19 06:59 18:59 Intake Total 240 Output Total 400 Balance -160 - Medications Medications: Current Medications Acetaminophen (Tylenol 325mg Tab) 325 mg PO Q6 PRN PRN Reason: Headache Last Admin: 01/26/19 10:24 Dose: 325 mg Amlodipine Besylate (Norvasc) 10 mg PO DAILY [facility] Last Admin: 02/01/19 09:29 Dose: 10 mg Aspirin (Aspirin Chewable) 81 mg PO DAILY [facility] Last Admin: 02/01/19 09:12 Dose: 81 mg Atorvastatin Calcium (Lipitor) 40 mg PO DAILY [facility] Last Admin: 02/01/19 09:15 Dose: 40 mg Benzocaine/Menthol (Cepacol Sore Throat) 1 alysa PO Q3 PRN PRN Reason: Sore Throat Last Admin: 01/26/19 17:20 Dose: 1 alysa Clopidogrel Bisulfate (Plavix) 75 mg PO DAILY [facility] Last Admin: 02/01/19 09:17 Dose: 75 mg Dimethicone (Proshield Plus Skin Protectant) 1 applic TOP Q8 PRN PRN Reason: Moisture associated wound Ergocalciferol (Drisdol 50,000 Intl Units Cap) 1 cap PO FRI [facility] Last Admin: 02/01/19 09:14 Dose: 1 cap Fluconazole (Diflucan) 100 mg PO DAILY [facility]; Protocol Stop: 02/02/19 14:16 Last Admin: 02/01/19 09:14 Dose: 100 mg Fluticasone Propionate (Flonase) 2 spr PRIYA DAILY [facility] Last Admin: 02/01/19 09:13 Dose: 2 spr Iron Sucrose 100 mg/ Sodium (Chloride) 105 mls @ 105 mls/hr IVPB DAILY [facility] Stop: 02/03/19 09:59 Last Admin: 02/01/19 12:21 Dose: 105 mls/hr Loratadine (Claritin) 10 mg PO DAILY [facility] Last Admin: 02/01/19 09:14 Dose: 10 mg Memantine (Namenda) 10 mg PO BID [facility] Last Admin: 02/01/19 09:13 Dose: 10 mg Mesalamine (Rowasa Enema) 4 gm RC HS [facility] Last Admin: 01/31/19 21:51 Dose: 4 gm Metoprolol Tartrate (Lopressor) 25 mg PO Q12 [facility] Last Admin: 02/01/19 09:15 Dose: 25 mg Oxandrolone (Oxandrin) 5 mg PO BID [facility] Last Admin: 02/01/19 09:28 Dose: 5 mg Sitagliptin Phosphate (Januvia) 25 mg PO DAILY [facility] Last Admin: 02/01/19 09:13 Dose: 25 mg Sucralfate (Carafate Oral Susp) 1 gm PO QID [facility] Last Admin: 02/01/19 12:27 Dose: 1 gm Tamsulosin HCl (Flomax) 0.4 mg PO DAILY [facility] Last Admin: 02/01/19 09:12 Dose: 0.4 mg - Labs Labs: 02/01/19 05:12 02/01/19 05:12
--- NOTE | 2019-02-01 16:48 | RAD ---
Date of service: 02/01/2019 HISTORY: Abdominal pain/distention COMPARISON: 01/15/2019. CT abdomen and pelvis. TECHNIQUE: 1 view obtained. FINDINGS: BOWEL: Colonic distension, the overall appearance, distribution in severity similar to that seen previously. No evidence of volvulus. BONES: Normal. 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 IMPRESSION: Colonic distension consistent with findings on recent CT scan/colitis. No significant new/acute or interval changes.
[2019-02-01] MEDS: Proshield Plus GEL TOP PRN (17:21)
[2019-02-02 06:03] LABS: HEMOGLOBIN 7.5 g/dL (12.0-18.0); MEAN CELL VOLUME 76.2 fl (80.0-94.0); MEAN CORPUSCULAR HEMOGLOBIN 24.8 pg (27.0-31.0); MEAN CORPUSCULAR HGB CONC 32.5 g/dL (33.0-37.0); RBC 3.05 Mil/uL (4.40-5.90); RED CELL DISTRIBUTION WIDTH 18.1 % (11.5-14.5); WHITE BLOOD COUNT 10.3 K/uL (4.8-10.8)
[2019-02-02 06:27] LABS: ALB/GLOB RATIO 0.7 (1.0-2.1); ALBUMIN 2.3 g/dL (3.5-5.0); CALCIUM 7.9 mg/dL (8.4-10.2)
[2019-02-02] MEDS: Sucralfate 1 gm/10 ml Oral Susp UD PO SCH ×4 (08:49→21:56)
--- NOTE | 2019-02-02 13:36 | CP.PCM.PN ---
Subjective - Date & Time of Evaluation Date of Evaluation: 02/02/19 Time of Evaluation: 01:15 - Subjective Subjective: Pt c/o Lt lower abdominal pain Still has diarrhea but no hematochezia. Objective - Vital Signs/Intake and Output Vital Signs (last 24 hours): Temp Pulse Resp BP Pulse Ox 96.8 F L 69 20 119/66 99 02/02/19 10:00 02/02/19 10:00 02/02/19 10:00 02/02/19 10:00 02/02/19 10:00 Intake and Output: 02/02/19 02/02/19 06:59 18:59 Intake Total 240 Balance 240 - Medications Medications: Current Medications Acetaminophen (Tylenol 325mg Tab) 325 mg PO Q6 PRN PRN Reason: Headache Last Admin: 01/26/19 10:24 Dose: 325 mg Amlodipine Besylate (Norvasc) 10 mg PO DAILY [facility] Last Admin: 02/02/19 08:49 Dose: 10 mg Aspirin (Aspirin Chewable) 81 mg PO DAILY [facility] Last Admin: 02/02/19 08:54 Dose: 81 mg Atorvastatin Calcium (Lipitor) 40 mg PO DAILY [facility] Last Admin: 02/02/19 08:52 Dose: 40 mg Benzocaine/Menthol (Cepacol Sore Throat) 1 alysa PO Q3 PRN PRN Reason: Sore Throat Last Admin: 01/26/19 17:20 Dose: 1 alysa Clopidogrel Bisulfate (Plavix) 75 mg PO DAILY [facility] Last Admin: 02/02/19 08:50 Dose: 75 mg Dimethicone (Proshield Plus Skin Protectant) 1 applic TOP Q8 PRN PRN Reason: Moisture associated wound Last Admin: 02/01/19 17:21 Dose: 1 applic Ergocalciferol (Drisdol 50,000 Intl Units Cap) 1 cap PO FRI [facility] Last Admin: 02/01/19 09:14 Dose: 1 cap Fluconazole (Diflucan) 100 mg PO DAILY [facility]; Protocol Stop: 02/02/19 14:16 Last Admin: 02/02/19 08:50 Dose: 100 mg Fluticasone Propionate (Flonase) 2 spr PRIYA DAILY [facility] Last Admin: 02/02/19 08:52 Dose: 2 spr Iron Sucrose 100 mg/ Sodium (Chloride) 105 mls @ 105 mls/hr IVPB DAILY [facility] Stop: 02/03/19 09:59 Last Admin: 02/02/19 08:55 Dose: 105 mls/hr Loratadine (Claritin) 10 mg PO DAILY [facility] Last Admin: 02/02/19 08:53 Dose: 10 mg Memantine (Namenda) 10 mg PO BID [facility] Last Admin: 02/02/19 08:51 Dose: 10 mg Mesalamine (Rowasa Enema) 4 gm RC HS [facility] Last Admin: 02/01/19 21:28 Dose: 4 gm Metoprolol Tartrate (Lopressor) 25 mg PO Q12 [facility] Last Admin: 02/02/19 08:50 Dose: 25 mg Oxandrolone (Oxandrin) 5 mg PO BID [facility] Last Admin: 02/02/19 08:55 Dose: 5 mg Sitagliptin Phosphate (Januvia) 25 mg PO DAILY [facility] Last Admin: 02/02/19 08:51 Dose: 25 mg Sucralfate (Carafate Oral Susp) 1 gm PO QID [facility] Last Admin: 02/02/19 13:16 Dose: 1 gm Tamsulosin HCl (Flomax) 0.4 mg PO DAILY [facility] Last Admin: 02/02/19 08:49 Dose: 0.4 mg - Labs Labs: 02/02/19 05:20 02/02/19 05:20 - Constitutional Appears: No Acute Distress - Head Exam Head Exam: ATRAUMATIC, NORMOCEPHALIC - Eye Exam Additional comments: Conjunctiva pale. No icterus. - ENT Exam ENT Exam: Mucous Membranes Moist - Neck Exam Neck Exam: Normal Inspection - Respiratory Exam Respiratory Exam: NORMAL BREATHING PATTERN Additional comments: Lungs clear - Cardiovascular Exam Cardiovascular Exam: REGULAR RHYTHM - GI/Abdominal Exam GI & Abdominal Exam: Distended Additional comments: LLQ tenderness with guarding. 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 Renal function is stable. Serum sodium is mildly elevated Enourage PO fluids Chronic colitis Plan: Continue to monitor renal function. Encourage PO fluids.
--- NOTE | 2019-02-03 01:01 | CP.PCM.PN ---
Subjective - Date & Time of Evaluation Date of Evaluation: 02/02/19 Time of Evaluation: 23:00 - Subjective Subjective: Patient with some diarrhea earlier. Tolerating meals. Objective - Vital Signs/Intake and Output Vital Signs (last 24 hours): Temp Pulse Resp BP Pulse Ox 98.2 F 75 18 105/52 L 96 02/02/19 21:00 02/02/19 21:56 02/02/19 21:00 02/02/19 21:56 02/02/19 21:00 Intake and Output: 02/02/19 02/03/19 18:59 06:59 Intake Total 1300 Output Total 1100 Balance 200 - Medications Medications: Current Medications Acetaminophen (Tylenol 325mg Tab) 325 mg PO Q6 PRN PRN Reason: Headache Last Admin: 01/26/19 10:24 Dose: 325 mg Amlodipine Besylate (Norvasc) 10 mg PO DAILY [facility] Last Admin: 02/02/19 08:49 Dose: 10 mg Aspirin (Aspirin Chewable) 81 mg PO DAILY [facility] Last Admin: 02/02/19 08:54 Dose: 81 mg Atorvastatin Calcium (Lipitor) 40 mg PO DAILY [facility] Last Admin: 02/02/19 08:52 Dose: 40 mg Benzocaine/Menthol (Cepacol Sore Throat) 1 alysa PO Q3 PRN PRN Reason: Sore Throat Last Admin: 01/26/19 17:20 Dose: 1 alysa Clopidogrel Bisulfate (Plavix) 75 mg PO DAILY [facility] Last Admin: 02/02/19 08:50 Dose: 75 mg Dimethicone (Proshield Plus Skin Protectant) 1 applic TOP Q8 PRN PRN Reason: Moisture associated wound Last Admin: 02/01/19 17:21 Dose: 1 applic Ergocalciferol (Drisdol 50,000 Intl Units Cap) 1 cap PO FRI [facility] Last Admin: 02/01/19 09:14 Dose: 1 cap Fluticasone Propionate (Flonase) 2 spr PRIYA DAILY [facility] Last Admin: 02/02/19 08:52 Dose: 2 spr Iron Sucrose 100 mg/ Sodium (Chloride) 105 mls @ 105 mls/hr IVPB DAILY [facility] Stop: 02/03/19 09:59 Last Admin: 02/02/19 08:55 Dose: 105 mls/hr Loratadine (Claritin) 10 mg PO DAILY [facility] Last Admin: 02/02/19 08:53 Dose: 10 mg Memantine (Namenda) 10 mg PO BID [facility] Last Admin: 02/02/19 17:10 Dose: 10 mg Mesalamine (Rowasa Enema) 4 gm RC HS [facility] Last Admin: 02/02/19 21:57 Dose: 4 gm Metoprolol Tartrate (Lopressor) 25 mg PO Q12 [facility] Last Admin: 02/02/19 21:56 Dose: 25 mg Oxandrolone (Oxandrin) 5 mg PO BID [facility] Last Admin: 02/02/19 17:11 Dose: 5 mg Sitagliptin Phosphate (Januvia) 25 mg PO DAILY [facility] Last Admin: 02/02/19 08:51 Dose: 25 mg Sucralfate (Carafate Oral Susp) 1 gm PO QID [facility] Last Admin: 02/02/19 21:56 Dose: 1 gm Tamsulosin HCl (Flomax) 0.4 mg PO DAILY [facility] Last Admin: 02/02/19 08:49 Dose: 0.4 mg - Labs Labs: 02/02/19 05:20 02/02/19 05:20 - Head Exam Head Exam: ATRAUMATIC - Eye Exam Pupil Exam: NORMAL ACCOMODATION - ENT Exam ENT Exam: Mucous Membranes Moist - Neck Exam Neck Exam: Full ROM - Respiratory Exam Respiratory Exam: Clear to Ausculation Bilateral - Cardiovascular Exam Cardiovascular Exam: REGULAR RHYTHM - GI/Abdominal Exam GI & Abdominal Exam: Distended, Soft, Normal Bowel Sounds Assessment and Plan (1) Odynophagia Assessment & Plan: Has completed 5 days of fluconazole and may stop. Continue sucralfate suspension. Status: Acute (2) Diarrhea Status: Acute (3) Abdominal pain Assessment & Plan: Abdomen less firm. Patient having some loose bowel movements though no bleeding Status: Resolved
[2019-02-03] MEDS: Sucralfate 1 gm/10 ml Oral Susp UD PO SCH ×4 (08:52→22:00)
--- NOTE | 2019-02-03 11:09 | CP.PCM.PN ---
Subjective - Date & Time of Evaluation Date of Evaluation: 02/03/19 Time of Evaluation: 11:00 - Subjective Subjective: had large volume diarrhes today. No blood in stools Objective - Vital Signs/Intake and Output Vital Signs (last 24 hours): Temp Pulse Resp BP Pulse Ox 97.9 F 73 20 111/59 L 95 02/03/19 09:55 02/03/19 09:55 02/03/19 09:55 02/03/19 09:55 02/03/19 09:55 Intake and Output: 02/03/19 02/03/19 06:59 18:59 Intake Total 240 Balance 240 - Medications Medications: Current Medications Acetaminophen (Tylenol 325mg Tab) 325 mg PO Q6 PRN PRN Reason: Headache Last Admin: 01/26/19 10:24 Dose: 325 mg Amlodipine Besylate (Norvasc) 10 mg PO DAILY [facility] Last Admin: 02/03/19 08:50 Dose: 10 mg Aspirin (Aspirin Chewable) 81 mg PO DAILY [facility] Last Admin: 02/03/19 08:51 Dose: 81 mg Atorvastatin Calcium (Lipitor) 40 mg PO DAILY [facility] Last Admin: 02/03/19 08:51 Dose: 40 mg Benzocaine/Menthol (Cepacol Sore Throat) 1 alysa PO Q3 PRN PRN Reason: Sore Throat Last Admin: 01/26/19 17:20 Dose: 1 alysa Clopidogrel Bisulfate (Plavix) 75 mg PO DAILY [facility] Last Admin: 02/03/19 08:50 Dose: 75 mg Dimethicone (Proshield Plus Skin Protectant) 1 applic TOP Q8 PRN PRN Reason: Moisture associated wound Last Admin: 02/01/19 17:21 Dose: 1 applic Ergocalciferol (Drisdol 50,000 Intl Units Cap) 1 cap PO FRI [facility] Last Admin: 02/01/19 09:14 Dose: 1 cap Fluticasone Propionate (Flonase) 2 spr PRIYA DAILY [facility] Last Admin: 02/03/19 08:53 Dose: 2 spr Loratadine (Claritin) 10 mg PO DAILY [facility] Last Admin: 02/03/19 08:50 Dose: 10 mg Memantine (Namenda) 10 mg PO BID [facility] Last Admin: 02/03/19 08:50 Dose: 10 mg Mesalamine (Rowasa Enema) 4 gm RC HS [facility] Last Admin: 02/02/19 21:57 Dose: 4 gm Metoprolol Tartrate (Lopressor) 25 mg PO Q12 [facility] Last Admin: 02/03/19 08:50 Dose: 25 mg Oxandrolone (Oxandrin) 5 mg PO BID [facility] Last Admin: 02/03/19 10:59 Dose: 5 mg Sitagliptin Phosphate (Januvia) 25 mg PO DAILY [facility] Last Admin: 02/03/19 08:50 Dose: 25 mg Sucralfate (Carafate Oral Susp) 1 gm PO QID [facility] Last Admin: 02/03/19 08:52 Dose: 1 gm Tamsulosin HCl (Flomax) 0.4 mg PO DAILY [facility] Last Admin: 02/03/19 08:51 Dose: 0.4 mg - Labs Labs: 02/02/19 05:20 02/02/19 05:20 - Constitutional Appears: No Acute Distress - Eye Exam Additional comments: Conjunctiva pale - ENT Exam ENT Exam: Mucous Membranes Moist - Neck Exam Additional comments: supple - Respiratory Exam Respiratory Exam: NORMAL BREATHING PATTERN - Cardiovascular Exam Cardiovascular Exam: REGULAR RHYTHM - GI/Abdominal Exam GI & Abdominal Exam: Firm - Extremities Exam Additional comments: No edema Assessment and Plan - Assessment and Plan (Free Text) Assessment: CKD renal function is stable Blood pressures are low. Suggest to decrease amlodipine dose Colitid/diarrhea Plan: Decrease amlodipine to 5 mg daily Monitor serum sodium. If high will consider IVFs Continue to encourage PO fluids.
--- NOTE | 2019-02-04 01:59 | PN ---
DATE: 02/03/2019 SUBJECTIVE: The patient is seen and examined. Interim events noted. Consults noted and appreciated. Nephrology and Gastroenterology followup and intervention noted and appreciated. The patient remains in acute rehab unit. Denies any specific complaint. No chest pain. Nursing staff reported still having episodes of frequency of bowel movements. No chest pain. No shortness of breath. PHYSICAL EXAMINATION: GENERAL: The patient is in no acute distress. VITAL SIGNS: Stable. HEART: S1 and S2, normal and regular. LUNGS: Good bilateral air exchange. ABDOMEN: Soft and nontender. Abdominal exam again does not reveal any acute abdomen. No guarding. No rigidity. No rebound. Bowel sounds are present and normal, distention . EXTREMITIES: No edema. No calf swelling. No tenderness. No acute ischemia. CENTRAL NERVOUS SYSTEM: Essentially unchanged. DIAGNOSTIC DATA: Available diagnostic data reviewed. ASSESSMENT AND PLAN: Overall, the patient's general medical condition is stable. Plan as ordered. Gatito Mathew MD
[2019-02-04 06:07] LABS: HEMOGLOBIN 7.2 g/dL (12.0-18.0); MEAN CELL VOLUME 75.7 fl (80.0-94.0); MEAN CORPUSCULAR HEMOGLOBIN 24.2 pg (27.0-31.0); MEAN CORPUSCULAR HGB CONC 31.9 g/dL (33.0-37.0); RBC 2.96 Mil/uL (4.40-5.90); RED CELL DISTRIBUTION WIDTH 18.9 % (11.5-14.5); WHITE BLOOD COUNT 9.7 K/uL (4.8-10.8)
[2019-02-04 06:34] LABS: ALB/GLOB RATIO 0.6 (1.0-2.1); ALBUMIN 2.1 g/dL (3.5-5.0); CALCIUM 7.7 mg/dL (8.4-10.2)
[2019-02-04] MEDS: Sucralfate 1 gm/10 ml Oral Susp UD PO SCH ×4 (08:24→21:31)
[2019-02-04] MEDS: Proshield Plus GEL TOP PRN ×2 (08:29→18:56)
--- NOTE | 2019-02-04 08:29 | PN ---
DATE: 02/02/2019 SUBJECTIVE: The patient is seen and examined. Interim events noted. The patient remains in acute GI bleeding. but moving bowels. Had three bowel movements yesterday. No fresh blood. No chest pain. No shortness of breath. PHYSICAL EXAMINATION: GENERAL: The patient is in no acute distress. VITAL SIGNS: Stable. HEART: S1, S2 , normal and regular. LUNGS: Good bilateral air exchange. ABDOMEN: Soft and nontender. No organomegaly. No fluids. Bowel sounds are present and normal. looks much less. EXTREMITIES: No edema, no calf swelling, no tenderness. No acute ischemia. CENTRAL NERVOUS SYSTEM: Essentially unchanged. DIAGNOSTIC DATA: Available diagnostic data reviewed. Hemoglobin is 7.5 and stable without any orthostatic changes. ASSESSMENT AND PLAN: Overall, the patient is medically stable. Plan as ordered. Gatito Mathew MD
[2019-02-04] MEDS ORDERED: Potassium Chloride 20 mEq ER Tab PO ONE (08:30)
--- NOTE | 2019-02-04 08:53 | PN ---
DATE: 02/04/2019 SUBJECTIVE: The patient is seen and examined. Interim events noted. Consults noted and appreciated. The patient remains in acute rehab unit. The patient denies any specific complaint. The patient is not such a good historian. Nursing staff reported continued having diarrhea. No blood in stool. PHYSICAL EXAMINATION: GENERAL: The patient is in no acute distress. VITAL SIGNS: Stable. HEART: S1, S2, normal and regular. LUNGS: Good bilateral air exchange. ABDOMEN: Soft, nontender, distention plus, but no sign of acute abdomen. No guarding, no rigidity, no rebound. Bowel sounds are plus and normal. EXTREMITIES: No edema. No calf swelling. No tenderness. No acute ischemia. CENTRAL NERVOUS SYSTEM: . DIAGNOSTIC DATA: Available diagnostic data reviewed. Potassium is 8.2. Gatito Mathew MD
--- NOTE | 2019-02-04 14:59 | CP.PCM.PN ---
Subjective - Date & Time of Evaluation Date of Evaluation: 02/04/19 Time of Evaluation: 02:30 - Subjective Subjective: Appears comfortable Objective - Vital Signs/Intake and Output Vital Signs (last 24 hours): Temp Pulse Resp BP Pulse Ox 97.7 F 68 18 109/52 L 97 02/04/19 14:35 02/04/19 10:00 02/04/19 10:00 02/04/19 10:00 02/04/19 10:00 Intake and Output: 02/04/19 02/04/19 06:59 18:59 Intake Total 250 Balance 250 - Medications Medications: Current Medications Acetaminophen (Tylenol 325mg Tab) 325 mg PO Q6 PRN PRN Reason: Headache Last Admin: 02/04/19 14:35 Dose: 325 mg Amlodipine Besylate (Norvasc) 5 mg PO DAILY [facility] Last Admin: 02/04/19 08:25 Dose: 5 mg Aspirin (Aspirin Chewable) 81 mg PO DAILY [facility] Last Admin: 02/04/19 08:29 Dose: 81 mg Atorvastatin Calcium (Lipitor) 40 mg PO DAILY [facility] Last Admin: 02/04/19 08:25 Dose: 40 mg Benzocaine/Menthol (Cepacol Sore Throat) 1 alysa PO Q3 PRN PRN Reason: Sore Throat Last Admin: 01/26/19 17:20 Dose: 1 alysa Clopidogrel Bisulfate (Plavix) 75 mg PO DAILY [facility] Last Admin: 02/04/19 08:27 Dose: 75 mg Dimethicone (Proshield Plus Skin Protectant) 1 applic TOP Q8 PRN PRN Reason: Moisture associated wound Last Admin: 02/04/19 08:29 Dose: 1 applic Ergocalciferol (Drisdol 50,000 Intl Units Cap) 1 cap PO FRI [facility] Last Admin: 02/01/19 09:14 Dose: 1 cap Fluticasone Propionate (Flonase) 2 spr PRIYA DAILY [facility] Last Admin: 02/04/19 08:26 Dose: 2 spr Iron Sucrose 100 mg/ Sodium (Chloride) 105 mls @ 105 mls/hr IVPB DAILY [facility] Loratadine (Claritin) 10 mg PO DAILY [facility] Last Admin: 02/04/19 08:29 Dose: 10 mg Memantine (Namenda) 10 mg PO BID [facility] Last Admin: 02/04/19 08:27 Dose: 10 mg Mesalamine (Rowasa Enema) 4 gm RC HS [facility] Last Admin: 02/03/19 22:00 Dose: 4 gm Metoprolol Tartrate (Lopressor) 25 mg PO Q12 [facility] Last Admin: 02/04/19 08:26 Dose: 25 mg Oxandrolone (Oxandrin) 5 mg PO BID [facility] Last Admin: 02/04/19 08:24 Dose: 5 mg Sitagliptin Phosphate (Januvia) 25 mg PO DAILY [facility] Last Admin: 02/04/19 08:27 Dose: 25 mg Sucralfate (Carafate Oral Susp) 1 gm PO QID [facility] Last Admin: 02/04/19 12:52 Dose: 1 gm Tamsulosin HCl (Flomax) 0.4 mg PO DAILY [facility] Last Admin: 02/04/19 08:26 Dose: 0.4 mg - Labs Labs: 02/04/19 05:41 02/04/19 05:41 - Constitutional Appears: No Acute Distress - Eye Exam Additional comments: Conjunctiva pale - ENT Exam ENT Exam: Mucous Membranes Moist - Neck Exam Additional comments: No jugular venous distension - Respiratory Exam Respiratory Exam: NORMAL BREATHING PATTERN Additional comments: Lungs clear - Cardiovascular Exam Cardiovascular Exam: REGULAR RHYTHM - GI/Abdominal Exam GI & Abdominal Exam: Soft - Extremities Exam Additional comments: No edema Assessment and Plan - Assessment and Plan (Free Text) Assessment: CKD.Solitary Rt kidney, [place] Ca Renal function is stable Mild increase in serum sodium level. mild dehydration due to diarrhes. PO fluids are encouraged. Diarrhea Plan: Continue to monitor renal function & electrolytes
--- NOTE | 2019-02-04 17:59 | CP.PCM.PN ---
Subjective - Date & Time of Evaluation Date of Evaluation: 02/04/19 Time of Evaluation: 17:57 - Subjective Subjective: Rodri Loya, born 1940 who has been admitted to [facility] acute inpatient rehabilitation. Had GI bleed and abdominal distention. +BOX GLUER and work up revealed a right MCA acute infarct. Right hand dominant. STill with ongoing GI issues getting fluid no pain Objective - Vital Signs/Intake and Output Vital Signs (last 24 hours): Temp Pulse Resp BP Pulse Ox 97.7 F 68 18 102/46 L 98 02/04/19 14:35 02/04/19 10:00 02/04/19 10:00 02/04/19 14:51 02/04/19 14:51 Intake and Output: 02/04/19 02/04/19 06:59 18:59 Intake Total 250 Balance 250 - Medications Medications: Current Medications Acetaminophen (Tylenol 325mg Tab) 325 mg PO Q6 PRN PRN Reason: Headache Last Admin: 02/04/19 14:35 Dose: 325 mg Amlodipine Besylate (Norvasc) 5 mg PO DAILY [facility] Last Admin: 02/04/19 08:25 Dose: 5 mg Aspirin (Aspirin Chewable) 81 mg PO DAILY [facility] Last Admin: 02/04/19 08:29 Dose: 81 mg Atorvastatin Calcium (Lipitor) 40 mg PO DAILY [facility] Last Admin: 02/04/19 08:25 Dose: 40 mg Benzocaine/Menthol (Cepacol Sore Throat) 1 alysa PO Q3 PRN PRN Reason: Sore Throat Last Admin: 01/26/19 17:20 Dose: 1 alysa Clopidogrel Bisulfate (Plavix) 75 mg PO DAILY [facility] Last Admin: 02/04/19 08:27 Dose: 75 mg Dimethicone (Proshield Plus Skin Protectant) 1 applic TOP Q8 PRN PRN Reason: Moisture associated wound Last Admin: 02/04/19 08:29 Dose: 1 applic Ergocalciferol (Drisdol 50,000 Intl Units Cap) 1 cap PO FRI [facility] Last Admin: 02/01/19 09:14 Dose: 1 cap Fluticasone Propionate (Flonase) 2 spr PRIYA DAILY [facility] Last Admin: 02/04/19 08:26 Dose: 2 spr Iron Sucrose 100 mg/ Sodium (Chloride) 105 mls @ 105 mls/hr IVPB DAILY [facility] Last Admin: 02/04/19 15:40 Dose: 105 mls/hr Loratadine (Claritin) 10 mg PO DAILY [facility] Last Admin: 02/04/19 08:29 Dose: 10 mg Memantine (Namenda) 10 mg PO BID [facility] Last Admin: 02/04/19 17:26 Dose: 10 mg Mesalamine (Rowasa Enema) 4 gm RC HS [facility] Last Admin: 02/03/19 22:00 Dose: 4 gm Metoprolol Tartrate (Lopressor) 25 mg PO Q12 [facility] Last Admin: 02/04/19 08:26 Dose: 25 mg Oxandrolone (Oxandrin) 5 mg PO BID [facility] Last Admin: 02/04/19 17:28 Dose: 5 mg Sitagliptin Phosphate (Januvia) 25 mg PO DAILY [facility] Last Admin: 02/04/19 08:27 Dose: 25 mg Sucralfate (Carafate Oral Susp) 1 gm PO QID [facility] Last Admin: 02/04/19 17:26 Dose: 1 gm Tamsulosin HCl (Flomax) 0.4 mg PO DAILY [facility] Last Admin: 02/04/19 08:26 Dose: 0.4 mg - Labs Labs: 02/04/19 05:41 02/04/19 05:41 - Constitutional Appears: Non-toxic, No Acute Distress - Head Exam Head Exam: ATRAUMATIC, NORMAL INSPECTION, NORMOCEPHALIC - Eye Exam Eye Exam: EOMI - Respiratory Exam Respiratory Exam: absent: Respiratory Distress - GI/Abdominal Exam GI & Abdominal Exam: Distended. absent: Firm, Guarding - Extremities Exam Extremities Exam: absent: Calf Tenderness - Psychiatric Exam Psychiatric exam: Flat Affect - Skin Skin Exam: Warm Assessment and Plan - Assessment and Plan (Free Text) Assessment: Rodri Loya, born 1940 who has been admitted to [facility] acute inpatient rehabilitation. Had GI bleed and abdominal distention. +BOX GLUER and work up revealed a right MCA acute infarct. Right hand dominant. PT/OT to continue to help increase functional independence Team conference for d/c planning Pain: controlled Vascular: no evidence of DVT GI: continue with fluids Patient continues to be an excellent acute rehabilitation candidate and will have continued focused speech, PT, OT and recreational therapy to help facilitate a safe and appropriate d/c plan
--- NOTE | 2019-02-04 21:10 | CP.PCM.PN ---
Subjective - Date & Time of Evaluation Date of Evaluation: 02/04/19 Time of Evaluation: 21:08 - Subjective Subjective: Patient noted to have bloody BM today. Hgb prior was 7.2. On ASA and plavix. Objective - Vital Signs/Intake and Output Vital Signs (last 24 hours): Temp Pulse Resp BP Pulse Ox 97.7 F 68 18 102/46 L 98 02/04/19 14:35 02/04/19 10:00 02/04/19 10:00 02/04/19 14:51 02/04/19 14:51 Intake and Output: 02/04/19 02/05/19 18:59 06:59 Intake Total 1060 Output Total 125 Balance 935 - Medications Medications: Current Medications Acetaminophen (Tylenol 325mg Tab) 325 mg PO Q6 PRN PRN Reason: Headache Last Admin: 02/04/19 14:35 Dose: 325 mg Amlodipine Besylate (Norvasc) [address] [facility] Last Admin: 02/04/19 08:25 Dose: 5 mg Atorvastatin Calcium (Lipitor) [address] [facility] Last Admin: 02/04/19 08:25 Dose: 40 mg Benzocaine/Menthol (Cepacol Sore Throat) 1 alysa PO Q3 PRN PRN Reason: Sore Throat Last Admin: 01/26/19 17:20 Dose: 1 alysa Dimethicone (Proshield Plus Skin Protectant) 1 applic TOP Q8 PRN PRN Reason: Moisture associated wound Last Admin: 02/04/19 18:56 Dose: 1 applic Ergocalciferol (Drisdol 50,000 Intl Units Cap) [address] [facility] Last Admin: 02/01/19 09:14 Dose: 1 cap Fluticasone Propionate (Flonase) [address] [facility] Last Admin: 02/04/19 08:26 Dose: 2 spr Iron Sucrose 100 mg/ Sodium (Chloride) 105 mls @ 105 mls/hr IVPB DAILY [facility] Last Admin: 02/04/19 15:40 Dose: 105 mls/hr Loratadine (Claritin) [address] [facility] Last Admin: 02/04/19 08:29 Dose: 10 mg Memantine (Namenda) [address] [facility] Last Admin: 02/04/19 17:26 Dose: 10 mg Mesalamine (Rowasa Enema) [address] [facility] Last Admin: 02/03/19 22:00 Dose: 4 gm Metoprolol Tartrate (Lopressor) [address] [facility] Last Admin: 02/04/19 08:26 Dose: 25 mg Oxandrolone (Oxandrin) [address] [facility] Last Admin: 02/04/19 17:28 Dose: 5 mg Sitagliptin Phosphate (Januvia) [address] [facility] Last Admin: 02/04/19 08:27 Dose: 25 mg Sucralfate (Carafate Oral Susp) [address] [facility] Last Admin: 02/04/19 17:26 Dose: 1 gm Tamsulosin HCl (Flomax) 0.[address] [facility] Last Admin: 02/04/19 08:26 Dose: 0.4 mg - Labs Labs: 02/04/19 05:41 02/04/19 05:41 - Head Exam Head Exam: ATRAUMATIC - Eye Exam Eye Exam: Normal appearance - ENT Exam ENT Exam: Normal Exam - Neck Exam Neck Exam: Full ROM - Respiratory Exam Respiratory Exam: NORMAL BREATHING PATTERN - Cardiovascular Exam Cardiovascular Exam: +S1, +S2 - GI/Abdominal Exam GI & Abdominal Exam: Soft. absent: Tenderness Assessment and Plan (1) Odynophagia Status: Acute (2) Diarrhea Status: Acute (3) GI bleed Assessment & Plan: Had bloody BMs today. ASA and plavix stopped. 2 units PRBC ordered. Colonscopy Monday. Status: Resolved
[2019-02-05 06:06] LABS: MEAN CELL VOLUME 76.1 fl (80.0-94.0); MEAN CORPUSCULAR HEMOGLOBIN 23.9 pg (27.0-31.0); MEAN CORPUSCULAR HGB CONC 31.4 g/dL (33.0-37.0); RBC 2.92 Mil/uL (4.40-5.90); RED CELL DISTRIBUTION WIDTH 18.6 % (11.5-14.5); WHITE BLOOD COUNT 8.1 K/uL (4.8-10.8)
[2019-02-05 06:12] LABS: ALB/GLOB RATIO 0.6 (1.0-2.1); ALBUMIN 2.2 g/dL (3.5-5.0); CALCIUM 7.7 mg/dL (8.4-10.2)
--- NOTE | 2019-02-05 06:27 | CP.PCM.PN ---
<Jesus Collier - Last Filed: 02/05/19 09:33> Subjective - Date & Time of Evaluation Date of Evaluation: 02/05/19 Time of Evaluation: 06:27 - Subjective Subjective: pt seen and examined at bedside this AM. Denies acute overnight events, however, nursing noted bloody stools. Objective - Vital Signs/Intake and Output Vital Signs (last 24 hours): Temp Pulse Resp BP Pulse Ox 97.2 F L 73 20 110/55 L 99 02/04/19 22:00 02/04/19 22:00 02/04/19 22:00 02/04/19 22:00 02/04/19 22:00 Intake and Output: 02/04/19 02/05/19 18:59 06:59 Intake Total 1060 Output Total 125 Balance 935 - Medications Medications: Current Medications Acetaminophen (Tylenol 325mg Tab) 325 mg PO Q6 PRN PRN Reason: Headache Last Admin: 02/04/19 14:35 Dose: 325 mg Amlodipine Besylate (Norvasc) 5 mg PO DAILY [facility] Last Admin: 02/04/19 08:25 Dose: 5 mg Atorvastatin Calcium (Lipitor) 40 mg PO DAILY [facility] Last Admin: 02/04/19 08:25 Dose: 40 mg Benzocaine/Menthol (Cepacol Sore Throat) 1 alysa PO Q3 PRN PRN Reason: Sore Throat Last Admin: 01/26/19 17:20 Dose: 1 alysa Dimethicone (Proshield Plus Skin Protectant) 1 applic TOP Q8 PRN PRN Reason: Moisture associated wound Last Admin: 02/04/19 18:56 Dose: 1 applic Ergocalciferol (Drisdol 50,000 Intl Units Cap) 1 cap PO FRI [facility] Last Admin: 02/01/19 09:14 Dose: 1 cap Fluticasone Propionate (Flonase) 2 spr PRIYA DAILY [facility] Last Admin: 02/04/19 08:26 Dose: 2 spr Iron Sucrose 100 mg/ Sodium (Chloride) 105 mls @ 105 mls/hr IVPB DAILY [facility] Last Admin: 02/04/19 15:40 Dose: 105 mls/hr Loratadine (Claritin) 10 mg PO DAILY [facility] Last Admin: 02/04/19 08:29 Dose: 10 mg Memantine (Namenda) 10 mg PO BID [facility] Last Admin: 02/04/19 17:26 Dose: 10 mg Mesalamine (Rowasa Enema) 4 gm RC HS [facility] Last Admin: 02/04/19 21:31 Dose: 4 gm Metoprolol Tartrate (Lopressor) 25 mg PO Q12 [facility] Last Admin: 02/04/19 21:30 Dose: 25 mg Oxandrolone (Oxandrin) 5 mg PO BID [facility] Last Admin: 02/04/19 17:28 Dose: 5 mg Sitagliptin Phosphate (Januvia) 25 mg PO DAILY [facility] Last Admin: 02/04/19 08:27 Dose: 25 mg Sucralfate (Carafate Oral Susp) 1 gm PO QID [facility] Last Admin: 02/04/19 21:31 Dose: 1 gm Tamsulosin HCl (Flomax) 0.4 mg PO DAILY [facility] Last Admin: 02/04/19 08:26 Dose: 0.4 mg - Labs Labs: 02/05/19 05:40 02/05/19 05:40 - Constitutional Appears: No Acute Distress - Eye Exam Eye Exam: EOMI - ENT Exam ENT Exam: Mucous Membranes Moist - Respiratory Exam Respiratory Exam: Clear to Ausculation Bilateral. absent: Wheezes - Cardiovascular Exam Cardiovascular Exam: +S1, +S2 - GI/Abdominal Exam GI & Abdominal Exam: Distended, Soft. absent: Guarding, Tenderness - Extremities Exam Extremities Exam: absent: Pedal Edema - Neurological Exam Neurological Exam: Awake Assessment and Plan - Assessment and Plan (Free Text) Assessment: 78 y/o male with PMH of Ulcerative colitis, HTN, Bladder Ca, Dementia, prediabetes and CVA in 2007 recently admitted to [facility] for evaluation and treatment of acute bloody diarrhea with R abdominal pain. CT evidence of left sided colitis and treated with Cipro and Flagyl for colitis and his GI bleed eventually resolved, though diarrhea has been persistent and chronic (Cdiff negative). He was found to have low hemoglobin levels that remained stable between 8-9. Subsequently during this admission he suffered an acute ischemic stroke for he was evaluated by neurology and cardiology and treated with dual antiplatelet therapy. He had acute kidney injury and hypernatremia which was resolved with IV fluid hydrations under management of strategic account executive. Now in subacute rehab for rehabilitation. Plan: GI Bleed -GI Dr. Calvert: plan for colonoscopy tomorrow -FOBT +; stool leukocytes: negative and fat: normal -ASA and plavix discontinued -Pt continues to experience rectal bleed. -c/w sucralfate -[place] diet Anemia, chronic -H/H: 7.0/22.3 pt consistently at 7s -IV venofer UC, chronic -GI Dr. Calvert; started Cholestyramine and stool leukocytes and fat sent; plan for colonoscopy tomorrow -c/w Mesalamine Acute CVA -Neuro: Dr. Sanchez; f/u neuro OP -c/w atorvastatin Dementia -c/w memantine Esophagitis, acute -S/P Diflucan Hypokalemia -3.1; likely 2/2 GI loss/diarrhea -s/p K runs -start KDUR 40 and k 40 meq 1/2 NS -f/u am labs HTN -controlled -c/w amlodipine, metoprolol DM -c/w januvia Rhinitis -c/w Fluticasone and loratidine DVT/wound prophylaxis -scd (active bleed) -c/w Proshield PT/OT -eval/treat Future disposition planning: home services Case and plan d/w Dr. Priyanka Collier MD PGY-2 <Gatito Mathew - Last Filed: 02/06/19 06:12> Objective - Vital Signs/Intake and Output Vital Signs (last 24 hours): Temp Pulse Resp BP Pulse Ox 97.9 F 69 18 102/54 L 100 02/05/19 09:00 02/05/19 09:00 02/05/19 09:00 02/05/19 09:00 02/05/19 08:49 - Labs Labs: 02/05/19 05:40 02/05/19 05:40 Assessment and Plan - Assessment and Plan (Free Text) Plan: Patient was personally seen and examined by me in rounds with residents. Available labs and diagnostic data reviewed. Case, Patient's condition and management plan discussed with residents in rounds. Agree with resident's progress note. Plan: As ordered.
[2019-02-05 07:31] VITALS: BP 102/54; RESP 18; TEMP 97.9
[2019-02-05] MEDS ORDERED: Potassium Chloride 20 mEq ER Tab PO ONE (07:39)
[2019-02-05] MEDS ORDERED: Potassium Chloride 40 MEQ in Sodium Chloride 0.45% 1,000 ML IV SCH (07:45)
[2019-02-05] MEDS: Sucralfate 1 gm/10 ml Oral Susp UD PO SCH ×2 (08:25→12:11)
[2019-02-05 09:46] VITALS: O2SAT 100
[2019-02-05] MEDS ORDERED: Dextrose 50% SYRINGE Inj (50 ml) IV PRN (09:48)
[2019-02-05] MEDS ORDERED: Glucagon Recombinant 1 mg Inj IM PRN (09:48)
[2019-02-05 10:18] VITALS: PULSE 69
[2019-02-05] MEDS ORDERED: Insulin Regular 100 units/ml SC SCH (11:30)
--- NOTE | 2019-02-05 13:48 | PCM.PSYTMC ---
Acute Rehab Team Conference - - Vital Signs: Vital Signs (Last 8 Hours): Vital Signs 02/05/19 02/05/19 02/05/19 07:30 08:26 08:27 Temperature 97.9 F Pulse Rate 69 69 69 Respiratory 18 Rate Blood Pressure 102/54 L 102/54 L 102/54 L O2 Sat by Pulse 99 Oximetry 02/05/19 02/05/19 08:49 09:00 Temperature 97.9 F Pulse Rate 83 69 Respiratory 18 Rate Blood Pressure 102/54 L O2 Sat by Pulse 100 Oximetry Pain: 0 - Precautions: Precautions: Fall Prevention - Medications/Other Issues: Comment: Aspirin and Plavix on hold for Colonoscopy 02/06/19. .45 [id number] CC + 40meq @ 25 cc/hr - Consults: Comment: Solomon IRWIN. Ary Sanchez Neuro - Skin: Incision Site: N/A - Toileting: Toileting: Minimal Assistance - Bladder Management: Bladder Pattern: Normal Voiding Method: Toilet, Urinal Bladder Management: Minimal Assistance Other Intervention:: Mesalamine Rectal Suspension daily @ HS - Transfers: Transfers: Minimal Assistance - ADL's: ADL's: Minimal Assistance - Pain Management: Other Intervention:: Tylenol 325 mg p.o one tab. every 6 hrs for headache - Patient/Family Teaching: Other Intervention:: Safe transfers, indication for each medicine, encourage oral fluids, monitor for any rectal or bloody stool, colonoscopy - Goals/Time Frame: Comment: Dr. Mathew aware of today's Hgb 7.0 and per MD will transfuse if hgb below 7.0. type and screen and cross match done for 2 Units. - Provider: Registered Nurse:: Christine Navarrete Physical Therapy - Bed Mobility Bed Mobility: Contact Guard - Transfers Wheelchair to Mat: Verbal Cues, Contact Guard Sit to Stand: Verbal Cues, Contact Guard - Ambulation Level of Assistance: Verbal Cues, Contact Guard Distance (ft.): 150 Assistive Devices: Rolling Walker - Stair Negotiation Stairs: Level of Assistance: Verbal Cues, Contact Guard, Minimal Assistance Number of Stairs: 12 Handrails: Right - Standing Balance Static Stand: Supervision Comment: w/o AD - Pain Pain (assessed during therapy session): 0 Alleviating Techniques: Medication Comment: headache, stomach pains - Insight/Carryover Insight/Carryover: Fair - Patient/Family Education Comment: CVA recovery related topics, posture, activity pacing, balance. DBE, benefits of being OOB, PT goals, fxnl mob, DME, safety, falls - Assessment/Plan Assessment: Mr. Loya currently requires S/CGA for bed mobility and transfers, CGA for ambulation with RW , and close CGA with stair negotiation. Pt is limited in progress 2/2 multiple episodes of diarrhea/incontinence throughout session. Recommend 24 hour S/assist upon d/c. Initiated caregiver training with pts . does not feel comfortable with pts performance wit stair negotiation; recommend carry up assist. - Goals Timeframe: 10 days Goals: sit < > supine mod I. sit < > stand transfers mod I with RW. Pt will ambulate 300 ft with RW and supervision. Pt will negotiate flight of stairs with supervision using handrails - Provider Physical Therapist:: Constanza Mathis License Number:: [id number] Occupational Therapy - Arousal/Attention/Orientation Level of Consciousness: Awake, Alert Patient Orientation: Person, Place, Time, Appropriate to Age Assessment Comment: -bouts of laethargy, fatigue related to frequent bm, low Hgb, low bp, elevated creatinine - ADL/IADL Self Feeding: Supervision, Verbal Cues, Set-up Help Grooming: Supervision, Verbal Cues, Set-up Help Bathing-Upper Ext: Verbal Cues, Set-up Help, Moderate Assistance Bathing-Lower Ext: Verbal Cues, Set-up Help, Moderate Assistance Dressing-Upper Ext: Verbal Cues, Set-up Help, Minimal Assistance Dressing-Lower Ext: Verbal Cues, Set-up Help, Moderate Assistance, Maximum Assistance Comment: decline in function 2' overall weakness related to medical conditions - Sitting Balance Static Sitting: Independent without upper extremity support Dynamic Sitting: Reaches across midline, Reaches out of base of support, Reaches within base of support, Contact Guard Assist Comment: seated unsupported - Transfers Wheelchair to Bed Transfers: Verbal Cues, Set-up Help, Contact Guard, Minimal Assistance Toilet Transfers: Verbal Cues, Set-up Help, Contact Guard, Minimal Assistance Comment: shower transfers: Cg/Min assist and verbal cues - Wheelchair Management Level of Assistance: Not Applicable - Upper Extremity Status Right Upper Extremity Comment: AROM is WFLs Left Upper Extremity Comment: AROM is WFLs - Pain Pain (assessed during therapy session): 0 - Insight/Carryover Insight/Carryover: Fair - Patient/Family Education Comment: -adl, transfer and mobility training using adaptive/compensatory strategies. -DME assessment needs: shower chair with back, RW; pt/pt's educated on uses/applications. -rehab/OT goals, plan of care - Assessment/Plan Assessment: COMMUNICATED WITH PATIENT IN PREFERRED LANGUAGE--CZECH. Pt has NOT reached estbalished goals 2' frequent bouts of loose bowel movements, low bp, low Hgb, low K+ and pt feeling weak/lethargic thus making it increasingly difficulty to complete daily living tasks, functional transfers/mobility & therapy tasks. Pt may likely need RW as per Physical Therapist and may also need shower chair with back for safe tub transfers. Pt with increased overall wekaness, decrease activity tolerance thus needs more assist with adls, transfers and mobility. superintendent concrete mixing plant RN and nurse retail district manager made aware of overall decrease function. *Goal: 24 hour supervision for adls, transfers and mobility when MEDICALLY STABLE - Goals Timeframe: 1 week Comment: -UPPER BODY DRESSING: I/setup. -LOWER BODY DRESSING: Min assist/setup. -TOILETING: Supervision. -TRANSFERS: CS/Supervision with ambulatory device prn. -GROOMING: standing at sink with Supervision, I/setup seated. -FEEDING: Mod I - Provider Occupational Therapist:: Aide Arroyo License Number: [id number] Speech Therapy - Consult Information Patient on Program: Yes Medical Diagnosis: CVA Treatment Diagnosis: mild-moderate cognitive deficits - Assessment Problem Solving Impairment: Mild Memory Impairment: Moderate - Plan Assessment: Rodri Loya presents with mild-moderate cognitive deficits characterized by impaired attention, more complex problem solving, short-term memory, verbal reasoning, and thought organization. Pt with fluctuating improvement across cognitive tasks; barriers to learning and progress include cognitive deficits, pt fatigue and fluctuating attention, and pt motivation. Pt would benefit from continued skilled speech tx 3-5x/week for improved cognition and functional independence. Pt is tolerating regular solids and thin liquids without overt s/s aspiration 100% YONI; pt reports throat pain is improving; EGD completed revealed esophagitis and pt was placed on bland, low fat, no citrus diet which pt reports is helping. Pt has been discharged from dysphagia tx as he is tolerating the safe and most lenient PO diet at this time; recommend maintenance of regular solids and thin liquids. Plan: Continue Speech/Language Therapy, Discharge Dysphagia Therapy Frequency: 3-5 times per week Duration: 1 week Goals/Timeframe: Please see progress note dated 02/04/19 for updated goals/POC Recommendations: Continue speech tx for improved cognition - Provider Therapist: Ana Ivey License Number: [id number] Recreational Therapy - Participation Participation: Monitors His/Her Own Leisure Time - Attendance Attendance: Daily - Activities Leisure Activities: Television - Socialization Level of Socialization: Responds freely, but does not initiate - Assessment Assessment/Plan: Pt requires max verbal cues for encouragement to participate in sessions 2' decrease initiation and decrease arousal level to attend to tasks. Pt required mod A to complete modified solitario card task and required max A to complete bingo task 2' poor initiation, decrease number initiation, and decrease attention to task. Will continue to encourage pt to participate in recreation therapy sessions. Problems Currently Limiting Participation: decrease leisure awareness level, hard of hearing, impaired insight of deficits, forgetful, decrease arousal level, decrease level of motivation Goals and Time Frame: Pt will complete participating in 20 minute tabletop leisure task with min verbal cues by date of discharge. - Provider Therapist: Marcia Marie Nutrition - Current Diet Current Diet/Supplement/Feedings: [place] no citrus low fat 6 small meals lactose free suplena 8 ounces 1 per day - Appetite Percent Meal Consumed: 25-49% - Assessment/Goals/Time Frame Assessments/Goals/Time Frame: Pt at high nutritional risk. goals: 1. Pt to consume 75-100% of meals(not met, continue). 2. Blood glucoses to be between 70-180 mg/dl(partially met,continue). 3. K+ WNL(not met,continue). Follow-up due on 02/09/2019 - Provider Provider: Keisha Escobar Case Management - Psychosocial Assessment Support Systems: Sharri Loya (spouse) - [phone] Psychological Interventions/Needs: Patient is AAO with some forgetfulness. Discharge Concerns: is concerned with patient's frequent and seemingly uncontrolled diarrhea and their ability to manage it once home. Diarrhea is also causing patient to be increasingly fatigued and require even more assist. Patient/Family Meeting: CM met with patient and rehab team. Intervention/Goal/Outcome: 1. Goal: 24hr supversion 2. Plan: home with VNS/PARTY PLAN SELLING DISTRIBUTOR/family support 3. order DME 4. continued emotional support for pt and - Discharge Plan Discharge Plan: Home with services Home Services: [facility] - Provider Provider: Maru Walters License Number: [id number] Rehabilitation Plan - Treatment Plan Treatment Plan: Physical Therapy, Occupational Therapy, Speech, Dietary, Pat ient/Family Education (to hopefully go to medical floor given all of the current issues)
--- NOTE | 2019-02-05 14:05 | CP.PCM.PN ---
Subjective - Date & Time of Evaluation Date of Evaluation: 02/05/19 Time of Evaluation: 14:04 - Subjective Subjective: Patient seen in the room with family present he is not doing well medically and will need to be transferred today prior to tomorrow's colonoscopy He is weak and has gone downhill in his therapies Objective - Vital Signs/Intake and Output Vital Signs (last 24 hours): Temp Pulse Resp BP Pulse Ox 97.9 F 69 18 102/54 L 100 02/05/19 09:00 02/05/19 09:00 02/05/19 09:00 02/05/19 09:00 02/05/19 08:49 Intake and Output: 02/05/19 02/05/19 06:59 18:59 Intake Total 250 Output Total 150 Balance 100 - Medications Medications: Current Medications Acetaminophen (Tylenol 325mg Tab) 325 mg PO Q6 PRN PRN Reason: Headache Last Admin: 02/04/19 14:35 Dose: 325 mg Amlodipine Besylate (Norvasc) 5 mg PO DAILY [facility] Last Admin: 02/05/19 08:27 Dose: 5 mg Atorvastatin Calcium (Lipitor) 40 mg PO DAILY [facility] Last Admin: 02/05/19 08:26 Dose: 40 mg Benzocaine/Menthol (Cepacol Sore Throat) 1 alysa PO Q3 PRN PRN Reason: Sore Throat Last Admin: 01/26/19 17:20 Dose: 1 alysa Dextrose (Dextrose 50% Inj) 0 ml IV STAT PRN; Protocol PRN Reason: Hypoglycemia Protocol Dextrose (Glutose 15) 0 gm PO ONCE PRN; Protocol PRN Reason: Hypoglycemia Protocol Dimethicone (Proshield Plus Skin Protectant) 1 applic TOP Q8 PRN PRN Reason: Moisture associated wound Last Admin: 02/04/19 18:56 Dose: 1 applic Ergocalciferol (Drisdol 50,000 Intl Units Cap) 1 cap PO FRI [facility] Last Admin: 02/01/19 09:14 Dose: 1 cap Fluticasone Propionate (Flonase) 2 spr PRIYA DAILY [facility] Last Admin: 02/05/19 08:25 Dose: 2 spr Glucagon (Glucagen Diagnostic Kit) 0 mg IM STAT PRN; Protocol PRN Reason: Hypoglycemia Protocol Iron Sucrose 100 mg/ Sodium (Chloride) 105 mls @ 105 mls/hr IVPB DAILY [facility] Last Admin: 02/05/19 08:00 Dose: 105 mls/hr Potassium Chloride 40 meq/ (Sodium Chloride) 1,020 mls @ 25 mls/hr IV .Q24H [facility] Stop: 02/06/19 07:41 Last Admin: 02/05/19 10:58 Dose: 25 mls/hr Insulin Human Regular (Humulin R) 0 units SC ACHS [facility]; Protocol Last Admin: 02/05/19 12:11 Dose: Not Given Loratadine (Claritin) 10 mg PO DAILY [facility] Last Admin: 02/05/19 08:27 Dose: 10 mg Memantine (Namenda) 10 mg PO BID [facility] Last Admin: 02/05/19 08:25 Dose: 10 mg Mesalamine (Rowasa Enema) 4 gm RC HS [facility] Last Admin: 02/04/19 21:31 Dose: 4 gm Metoprolol Tartrate (Lopressor) 25 mg PO Q12 [facility] Last Admin: 02/05/19 08:26 Dose: 25 mg Oxandrolone (Oxandrin) 5 mg PO BID [facility] Last Admin: 02/05/19 08:30 Dose: 5 mg Sitagliptin Phosphate (Januvia) 25 mg PO DAILY [facility] Last Admin: 02/05/19 08:27 Dose: 25 mg Sucralfate (Carafate Oral Susp) 1 gm PO QID [facility] Last Admin: 02/05/19 12:11 Dose: 1 gm Tamsulosin HCl (Flomax) 0.4 mg PO DAILY [facility] Last Admin: 02/05/19 08:30 Dose: 0.4 mg - Labs Labs: 02/05/19 05:40 02/05/19 05:40
[2019-02-05] MEDS ORDERED: Magnesium Citrate Oral SOL (300 ml) PO ONE (15:26)
== END 2019-02-05 15:25 | disposition short-term general hospital (02) | DRG 57 ==
PROVIDERS: ADMIT Internal Medicine; ATTEND Internal Medicine
PROC: F07M6FZ Therapeutic Exercise Treatment of Musculoskeletal System - Whole Body using Assistive, Adaptive, Supportive or Protective Equipment (ICD-10-PCS; principal; 2019-01-25)
PROC: F08Z4FZ Home Management Treatment using Assistive, Adaptive, Supportive or Protective Equipment (ICD-10-PCS; 2019-01-25)
PROC: F07Z9FZ Gait Training/Functional Ambulation Treatment using Assistive, Adaptive, Supportive or Protective Equipment (ICD-10-PCS; 2019-01-25)
DX: I69.359 Hemiplegia and hemiparesis following cerebral infarction affecting unspecified side (principal); B37.81 Candidal esophagitis; D62 Acute posthemorrhagic anemia; E87.0 Hyperosmolality and hypernatremia; K51.50 Left sided colitis without complications; N39.0 Urinary tract infection, site not specified; K62.5 Hemorrhage of anus and rectum; E11.22 Type 2 diabetes mellitus with diabetic chronic kidney disease; R26.81 Unsteadiness on feet; Z85.528 Personal history of other malignant neoplasm of kidney; E78.00 Pure hypercholesterolemia, unspecified; E86.0 Dehydration; E87.6 Hypokalemia; F03.90 Unspecified dementia, unspecified severity, without behavioral disturbance, psychotic disturbance, mood disturbance, and anxiety; I12.9 Hypertensive chronic kidney disease with stage 1 through stage 4 chronic kidney disease, or unspecified chronic kidney disease; K21.9 Gastro-esophageal reflux disease without esophagitis; N18.9 Chronic kidney disease, unspecified; Z85.51 Personal history of malignant neoplasm of bladder; Z87.891 Personal history of nicotine dependence; Z90.5 Acquired absence of kidney; M10.9 Gout, unspecified; R31.9 Hematuria, unspecified; I95.9 Hypotension, unspecified

== ENCOUNTER 2019-01-28 12:45 | Day surgery (SDC) | payer MEDICARE, MEDICAID ==
[2019-01-28] MEDS ORDERED: Lactated Ringer's 500 ML IV ONE (13:47)
[2019-01-28] MEDS ORDERED: Midazolam 2 MG/2 ML VIAL ONE (13:52)
[2019-01-28] MEDS ORDERED: Etomidate 20 mg/10ml Inj IV ONE (13:52)
[2019-01-28] MEDS ORDERED: Propofol 10 mg/ml Inj (20 ML) ONE (13:53)
[2019-01-28 14:14] VITALS: BMI 23.8
[2019-01-28 14:22] VITALS: TEMP 97.6; O2SAT 100
[2019-01-28 14:39] VITALS: PULSE 69
[2019-01-28 14:51] VITALS: BP 121/60; RESP 15
== END 2019-01-28 15:02 ==
LOC: H.ENDO 12:45
PROVIDERS: ATTEND Internal Medicine Gastroenterology
DX: K31.89 Other diseases of stomach and duodenum (principal); B37.81 Candidal esophagitis; R13.10 Dysphagia, unspecified; R10.13 Epigastric pain; I11.0 Hypertensive heart disease with heart failure; I50.9 Heart failure, unspecified; Z86.73 Personal history of transient ischemic attack (TIA), and cerebral infarction without residual deficits; E78.5 Hyperlipidemia, unspecified; N40.0 Benign prostatic hyperplasia without lower urinary tract symptoms; M10.9 Gout, unspecified; K20.9 Esophagitis, unspecified; K29.70 Gastritis, unspecified, without bleeding
CPT/HCPCS: 43239; 88104; 88305; J2001; J2250; J2704; J7120

== ENCOUNTER 2019-02-05 15:29 | Inpatient (IN) | payer MEDICARE, MEDICAID ==
[2019-02-05 15:29] VITALS: BMI 23.8
[~2019-02-05 15:29] MED LIST: CLINDAMYCIN 600 MG/50 ML IVPB ONE; D5W IVPB ONE
[2019-02-05] MEDS ORDERED: Benzocaine/Menthol (Cepacol) Lozenge PO PRN (16:03)
--- NOTE | 2019-02-05 16:04 | ED PDOC ---
HPI: General Adult Time Seen by Provider: 02/05/19 15:42 Chief Complaint (Nursing): GI Problem Chief Complaint (Provider): Anemia History Per: Other (hospital records) History/Exam Limitations: no limitations Additional Complaint(s): 78yo male with history of colitis, GI bleed due to colitis, CVA, hypertension, diabetes, dementia, bladder cancer, sent to ER from rehab due to anemia. Patient's hemoglobin level noted to be 7.0 and as patient scheduled for a colonoscopy, he will need 2 units of PRBC transfusion. Currently, patient denies any vomiting, and per records, no bloody stools noted. No fever, chills, chest p ain or shortness of breath. No additional complaints. PMD: Dr. Roberson Past Medical History Reviewed: Historical Data, Nursing Documentation, Vital Signs Vital Signs: Last Vital Signs Temp 98.7 F 02/05/19 15:29 Pulse 72 02/05/19 15:29 Resp 16 02/05/19 15:29 BP 103/50 L 02/05/19 15:29 Pulse Ox 98 02/05/19 15:29 - Medical History PMH: Anemia, CVA (leg leg numb and weak since that 8 years ago), Dementia, HTN, Hypercholesterolemia, Hyperlipidemia, Malignancy (bladder cancer), TIA Denies: HIV, Chronic Kidney Disease - Family History Family History: States: Unknown Family Hx - Immunization History Hx Tetanus Toxoid Vaccination: No Hx Influenza Vaccination: No Hx Pneumococcal Vaccination: No - Home Medications Home Medications: Ambulatory Orders Medication Instructions Recorded Tamsulosin [Flomax] 0.4 mg PO DAILY 09/27/17 SITagliptin [Januvia] 25 mg PO DAILY 08/13/18 Loratadine [Claritin] 10 mg PO DAILY 12/19/18 Mesalamine 4 gm RC HS 12/19/18 Acetaminophen [Tylenol] 325 mg PO Q6 PRN 01/24/19 Atorvastatin [Lipitor] 40 mg PO DAILY 01/24/19 Ergocalciferol [Drisdol] 50,000 unit PO FR 01/24/19 Fluticasone Propionate [Flonase] 2 spray NS DAILY 01/24/19 Memantine [Namenda] 10 mg PO BID 01/24/19 Benzocaine/Menthol [Cepacol Sore 1 alysa PO Q3 PRN 02/05/19 Throat] Insulin Regular [HumuLIN R] See Protocol SC ACHS 02/05/19 Iron Sucrose [Venofer] 100 mg IVPB DAILY 02/05/19 Metoprolol Tartrate [Lopressor] 25 mg PO Q12 02/05/19 Oxandrolone [Oxandrin] 5 mg PO BID 02/05/19 Sucralfate [Carafate Oral Susp] 10 ml PO QID 02/05/19 amLODIPine [Norvasc] 5 mg PO DAILY 02/05/19 - Allergies Allergies/Adverse Reactions: Allergies Allergy/AdvReac Type Severity Reaction Status Date / Time Penicillins Allergy RASH Verified 01/28/19 13:34 Review of Systems ROS Statement: Except As Marked, All Systems Reviewed And Found Negative Constitutional: Negative for: Fever, Chills Cardiovascular: Negative for: Chest Pain Respiratory: Negative for: Shortness of Breath Gastrointestinal: Negative for: Hematochezia Physical Exam - Reviewed Nursing Documentation Reviewed: Yes Vital Signs Reviewed: Yes - Physical Exam Appears: Positive for: Non-toxic Head Exam: Positive for: ATRAUMATIC, NORMAL INSPECTION, NORMOCEPHALIC Skin: Positive for: Normal Color, Warm, Dry. Negative for: Pallor, Rash Eye Exam: Positive for: EOMI, PERRL Neck: Positive for: Supple Cardiovascular/Chest: Positive for: Regular Rate, Rhythm. Negative for: Tachycardia Respiratory: Positive for: Normal Breath Sounds. Negative for: Respiratory Distress Gastrointestinal/Abdominal: Positive for: Soft. Negative for: Tenderness Back: Positive for: Normal Inspection Extremity: Positive for: Normal ROM. Negative for: Pedal Edema Neurological/Psych: Positive for: Awake, Alert, Oriented (x 2) - ECG O2 Sat by Pulse Oximetry: 98 (RA) Pulse Ox Interpretation: Normal Medical Decision Making Medical Decision Makinyo with anemia Plan: -- Labs [address] Mathew, patient to be admitted under his service. 2183 Consent for transfusion obtained from patient using health care aide VOYCE [id number] 2 units of packed red blood cells administered --------- -------- Scribe Attestation: Documented by Freya Moeller acting as a scribe for Godwin Rome MD Provider Scribe Attestation: All medical record entries made by the Scribe were at my direction and personally dictated by me. I have reviewed the chart and agree that the record accurately reflects my personal performance of the history, physical exam, medical decision making, and the department course for this patient. I have also personally directed, reviewed, and agree with the discharge instructions and disposition. Disposition - Clinical Impression Clinical Impression: Anemia - Patient ED Disposition Is Patient to be Admitted: Yes - Disposition Disposition Time: 16:20 Condition: FAIR Forms: [employer] (Panamanian) - Pt Status Changed To: Hospital Disposition Of: Inpatient - Admit Certification Admit to Inpatient:: After my assessment, the patient will require hospitalization for at least two midnights. This is because of the severity of symptoms shown, intensity of services needed, and/or the medical risk in this patient being treated as an outpatient. - POA Present On Arrival: None
[2019-02-05] MEDS ORDERED: Glucagon Recombinant 1 mg Inj IM PRN (16:11)
[2019-02-05] MEDS ORDERED: Potassium Chloride 40 MEQ in Sodium Chloride 0.45% 1,000 ML IV SCH (16:15)
--- NOTE | 2019-02-05 16:23 | CP.PCM.HP ---
<Jesus Collier - Last Filed: 02/05/19 16:21> History of Present Illness - History of Present Illness History of Present Illness: 78 y/o male with PMH of Ulcerative colitis, HTN, Bladder Ca, Dementia, prediabetes and CVA in 2007 recently admitted to [facility] for evaluation and treatment of acute bloody diarrhea with R abdominal pain. CT evidence of left sided colitis and treated with Cipro and Flagyl for colitis and his GI bleed eventually resolved, though diarrhea has been persistent and chronic (Cdiff negative). He was found to have low hemoglobin levels that remained stable between 8 - 9. Subsequently during this admission he suffered an acute ischemic stroke for he was evaluated by neurology and cardiology and treated with dual antiplatelet therapy. He had acute kidney injury and hypernatremia which was resolved with IV fluid hydrations under management of vice president investor relations. While in subacute rehab for rehabilitation, pt represented with bloody stools and dropping hemoglobin. Pt consented with for 2 units PRBC in preparation for Colonoscopy. Pt evaluated by Dr. Valero and team for dizziness and inability to fully engage in therapy. PMD: Dr. Viv Ledezma Urologist: Dr. Chua PMH: Ulcerative colitis, Hypotension, Bladder Ca, Dementia, prediabetes and CVA in 2007 PSH: Denies Allg: PNC SH: Denies alcohol, smoking or drug use SH: unknown Present on Admission - Present on Admission Any Indicators Present on Admission: Yes History of Uncontrolled Diabetes: Yes Review of Systems - Cardiovascular Cardiovascular: absent: Chest Pain - Respiratory Respiratory: absent: Cough, Dyspnea - Gastrointestinal Gastrointestinal: Abdominal Pain, Bloating, Diarrhea, Hematochezia. absent: Vomiting - Genitourinary Genitourinary: As Per HPI - Neurological Neurological: Abnormal Gait Past Patient History - Past Medical History & Family History Past Medical History?: Yes - Past Social History Smoking Status: Never Smoked - CARDIAC Hx Hypercholesterolemia: Yes Hx Hypertension: Yes - PULMONARY Hx Respiratory Disorders: No - NEUROLOGICAL Hx Dementia: Yes Hx Transient Ischemic Attacks (TIA): Yes - HEENT Hx HEENT Problems: No - RENAL Hx Chronic Kidney Disease: No - ENDOCRINE/METABOLIC Hx Endocrine Disorders: Yes Hx Diabetes Mellitus Type 2: Yes - HEMATOLOGICAL/ONCOLOGICAL Hx Anemia: Yes Hx Human Immunodeficiency Virus (HIV): No - INTEGUMENTARY Hx Dermatological Problems: No - MUSCULOSKELETAL/RHEUMATOLOGICAL Hx Musculoskeletal Disorders: Yes Hx Falls: Yes (4 months) Hx Gout: Yes Hx Unsteady Gait: Yes (post CVA) - GASTROINTESTINAL Hx Gastrointestinal Disorders: Yes Hx Colitis: Yes (chronic) Hx Gastroesophageal Reflux: Yes HX Swallowing Problems: Yes (current complaint) - GENITOURINARY/GYNECOLOGICAL Hx Genitourinary Disorders: Yes Hx Bladder Cancer: Yes Hx Hematuria: Yes Other/Comment: HX: URINARY FREQUENCY - PSYCHIATRIC Hx Psychophysiologic Disorder: No Hx Substance Use: No - SURGICAL HISTORY Hx Surgeries: Yes Other/Comment: HX: BLADDER CANCER TURBT. HX: NEPHROURETERECTOMY 2014. HX: CYSTOSCOPY WITH BLADDER BIOPSY AND FULGURATION(08/20/18) - ANESTHESIA Hx Anesthesia: Yes Hx Anesthesia Reactions: No Hx Malignant Hyperthermia: No Meds Allergies/Adverse Reactions: Allergies Allergy/AdvReac Type Severity Reaction Status Date / Time Penicillins Allergy RASH Verified 01/28/19 13:34 Physical Exam - Constitutional Appears: No Acute Distress - Eye Exam Eye Exam: EOMI - ENT Exam ENT Exam: Mucous Membranes Moist - Respiratory Exam Respiratory Exam: absent: Wheezes - Cardiovascular Exam Cardiovascular Exam: +S1, +S2 - GI/Abdominal Exam GI & Abdominal Exam: Distended. absent: Tenderness - Neurological Exam Neurological exam: Alert Results - Vital Signs Recent Vital Signs: Last Vital Signs Temp 98.7 F 02/05/19 15:29 Pulse 72 02/05/19 15:29 Resp 16 02/05/19 15:29 BP 103/50 L 02/05/19 15:29 Pulse Ox 98 02/05/19 16:10 Assessment & Plan - Assessment and Plan (Free Text) Assessment: 78 y/o male with PMH of Ulcerative colitis, HTN, Bladder Ca, Dementia, prediabetes and CVA in 2007 recently admitted to [facility] for evaluation and treatment of acute bloody diarrhea with R abdominal pain. CT evidence of left sided colitis and treated with Cipro and Flagyl for colitis and his GI bleed eventually resolved, though diarrhea has been persistent and chronic (Cdiff negative). He was found to have low hemoglobin levels that remained stable between 8 - 9. Subsequently during this admission he suffered an acute ischemic stroke for he was evaluated by neurology and cardiology and treated with dual antiplatelet therapy. He had acute kidney injury and hypernatremia which was resolved with IV fluid hydrations under management of vice president investor relations. While in subacute rehab for rehabilitation, pt represented with bloody stools and dropping hemoglobin. Pt consented with for 2 units PRBC in preparation for Colonoscopy. Pt evaluated by Dr. Valero and team for dizziness and inability to fully engage in therapy. Plan: GI Bleed -GI Dr. Calvert: plan for colonoscopy tomorrow -npo at midnight -FOBT +; stool leukocytes: negative and fat: normal -ASA and plavix discontinued -Pt continues to experience rectal bleed. -c/w sucralfate -[place] diet Anemia, chronic -H/H: 7.0/22.3 pt consistently at 7s -IV venofer -Pt consented for transfusion of 2 units PRBC UC, chronic -GI Dr. Calvert; started Cholestyramine and stool leukocytes and fat sent; plan for colonoscopy tomorrow -c/w Mesalamine Acute CVA -Neuro: Dr. Sanchez; f/u neuro OP -c/w atorvastatin Dementia -c/w memantine Esophagitis, acute -S/P Diflucan CKD -Nephrology: Dr. Boone consulted: further recs appreciated Hypokalemia -3.1; likely 2/2 GI loss/diarrhea -s/p K runs -start KDUR 40 and k 40 meq 1/2 NS -f/u am labs HTN -controlled -c/w amlodipine, metoprolol DM -c/w januvia Rhinitis -c/w Fluticasone and loratidine DVT/wound prophylaxis -scd (active bleed) -c/w Proshield Gait instability PT/OT -eval/treat fall precautions Case and plan d/w Dr. Priyanka Collier MD PGY-2 <Gatito Mathew - Last Filed: 02/06/19 06:12> Results - Vital Signs Recent Vital Signs: Last Vital Signs Temp 98.5 F 02/06/19 05:27 Pulse 75 02/06/19 05:27 Resp 18 02/06/19 05:27 BP 114/68 02/06/19 05:27 Pulse Ox 95 02/06/19 05:27 - Labs Result Diagrams: 02/06/19 05:00 02/06/19 05:00 Labs: Laboratory Results - last 24 hr 02/05/19 02/05/19 02/05/19 16:33 16:45 19:50 WBC RBC Hgb Hct MCV MCH MCHC RDW Plt Count Sodium Potassium Chloride Carbon Dioxide Anion Gap BUN Creatinine Est GFR ( Amer) Est GFR (Non-Af Amer) POC Glucose (mg/dL) 96 80 Random Glucose Calcium Total Bilirubin AST ALT Alkaline Phosphatase Total Protein Albumin Globulin Albumin/Globulin Ratio Blood Type O POSITIVE Antibody Screen Negative Crossmatch See Detail BBK History Checked Patient has bt 02/05/19 02/06/19 02/06/19 21:26 05:00 05:00 WBC 8.6 RBC 3.09 L Hgb 7.8 L Hct 24.1 L MCV 78.2 L D MCH 25.2 L MCHC 32.2 L RDW 19.4 H Plt Count 429 H Sodium 147 Potassium 3.5 L Chloride 120 H Carbon Dioxide 20 L Anion Gap 11 BUN 26 H Creatinine 2.1 H Est GFR ( Amer) 37 Est GFR (Non-Af Amer) 31 POC Glucose (mg/dL) 79 Random Glucose 67 L Calcium 7.7 L Total Bilirubin 0.5 AST 25 ALT 22 Alkaline Phosphatase 84 Total Protein 5.8 L Albumin 2.1 L Globulin 3.6 Albumin/Globulin Ratio 0.6 L Blood Type Antibody Screen Crossmatch BBK History Checked 02/06/19 02/06/19 05:21 05:50 WBC RBC Hgb Hct MCV MCH MCHC RDW Plt Count Sodium Potassium Chloride Carbon Dioxide Anion Gap BUN Creatinine Est GFR ( Amer) Est GFR (Non-Af Amer) POC Glucose (mg/dL) 69 156 H Random Glucose Calcium Total Bilirubin AST ALT Alkaline Phosphatase Total Protein Albumin Globulin Albumin/Globulin Ratio Blood Type Antibody Screen Crossmatch BBK History Checked Assessment & Plan - Assessment and Plan (Free Text) Plan: Patient was personally seen and examined by me in rounds with residents. Available labs and diagnostic data reviewed. Case, Patient's condition and management plan discussed with residents in rounds. Agree with resident's progress note. Plan: As ordered.
[2019-02-05] MEDS ORDERED: Bisacodyl 5mg EC Tab PO ONE (17:00)
[2019-02-05] MEDS: Sucralfate 1 gm/10 ml Oral Susp UD PO SCH ×2 (17:45→21:55)
[2019-02-05] MEDS: Insulin Regular 100 units/ml SC SCH ×2 (19:56→22:01)
[2019-02-05] MEDS ORDERED: Magnesium Citrate Oral SOL (300 ml) PO ONE (22:00)
[2019-02-06 05:16] LABS: HEMOGLOBIN 7.8 g/dL (12.0-18.0); MEAN CELL VOLUME 78.2 fl (80.0-94.0); MEAN CORPUSCULAR HEMOGLOBIN 25.2 pg (27.0-31.0); MEAN CORPUSCULAR HGB CONC 32.2 g/dL (33.0-37.0); RBC 3.09 Mil/uL (4.40-5.90); RED CELL DISTRIBUTION WIDTH 19.4 % (11.5-14.5); WHITE BLOOD COUNT 8.6 K/uL (4.8-10.8)
[2019-02-06] MEDS: Dextrose 50% SYRINGE Inj (50 ml) IV PRN (05:35)
[2019-02-06 05:37] LABS: ALB/GLOB RATIO 0.6 (1.0-2.1); ALBUMIN 2.1 g/dL (3.5-5.0); CALCIUM 7.7 mg/dL (8.4-10.2)
--- NOTE | 2019-02-06 06:26 | CP.PCM.PN ---
<Jesus Collier - Last Filed: 02/06/19 08:45> Subjective - Date & Time of Evaluation Date of Evaluation: 02/06/19 Time of Evaluation: 06:26 - Subjective Subjective: Pt seen and examined at bedside. Denies acute overnight events. Reports gassy abdomen. Does not want to drink bowel prep. Objective - Vital Signs/Intake and Output Vital Signs (last 24 hours): Temp Pulse Resp BP Pulse Ox 98.5 F 75 18 114/68 95 02/06/19 05:27 02/06/19 05:27 02/06/19 05:27 02/06/19 05:27 02/06/19 05:27 Intake and Output: 02/05/19 02/06/19 18:59 06:59 Intake Total 274 Balance 274 - Medications Medications: Current Medications Acetaminophen (Tylenol 325mg Tab) 650 mg PO Q6 PRN PRN Reason: Pain, Mild (1-3) Amlodipine Besylate (Norvasc) 5 mg PO DAILY JOVANNY Atorvastatin Calcium (Lipitor) 40 mg PO DAILY [facility] Benzocaine/Menthol (Cepacol Sore Throat) 1 alysa PO Q3 PRN PRN Reason: Sore Throat Dextrose (Dextrose 50% Inj) 0 ml IV STAT PRN; Protocol PRN Reason: Hypoglycemia Protocol Last Admin: 02/06/19 05:35 Dose: 25 ml Dextrose (Glutose 15) 0 gm PO ONCE PRN; Protocol PRN Reason: Hypoglycemia Protocol Dimethicone (Proshield Plus Skin Protectant) 1 applic TOP Q8 PRN PRN Reason: derm Ergocalciferol (Drisdol 50,000 Intl Units Cap) 1 cap PO FR JOVANNY Fluticasone Propionate (Flonase) 2 spr PRIYA DAILY JOVANNY Glucagon (Glucagen Diagnostic Kit) 0 mg IM STAT PRN; Protocol PRN Reason: Hypoglycemia Protocol Potassium Chloride 40 meq/ (Sodium Chloride) 1,020 mls @ 25 mls/hr IV .Q24H JOVANNY Stop: 02/06/19 16:13 Last Admin: 02/05/19 17:15 Dose: Not Given Iron Sucrose 100 mg/ Sodium (Chloride) 105 mls @ 105 mls/hr IVPB DAILY [facility] Insulin Human Regular (Humulin R) 0 units SC ACHS JOVANNY; Protocol Last Admin: 02/05/19 22:01 Dose: Not Given Loratadine (Claritin) 10 mg PO DAILY [facility] Memantine (Namenda) 10 mg PO BID [facility] Last Admin: 02/05/19 17:48 Dose: 10 mg Mesalamine (Rowasa Enema) 4 gm RC HS [facility] Last Admin: 02/05/19 21:59 Dose: Not Given Metoprolol Tartrate (Lopressor) 25 mg PO Q12 [facility] Last Admin: 02/05/19 22:23 Dose: Not Given Sitagliptin Phosphate (Januvia) 25 mg PO DAILY [facility] Sucralfate (Carafate Oral Susp) 1 gm PO QID [facility] Last Admin: 02/05/19 21:55 Dose: 1 gm Tamsulosin HCl (Flomax) 0.4 mg PO DAILY [facility] - Labs Labs: 02/06/19 05:00 02/06/19 05:00 - Constitutional Appears: No Acute Distress - Eye Exam Eye Exam: EOMI - ENT Exam ENT Exam: Mucous Membranes Moist - Respiratory Exam Respiratory Exam: absent: Wheezes - Cardiovascular Exam Cardiovascular Exam: +S1, +S2 - GI/Abdominal Exam GI & Abdominal Exam: Distended, Tenderness, Normal Bowel Sounds - Neurological Exam Neurological Exam: Alert, Awake - Psychiatric Exam Psychiatric exam: Normal Affect, Normal Mood Assessment and Plan - Assessment and Plan (Free Text) Assessment: 78 y/o male with PMH of Ulcerative colitis, HTN, Bladder Ca, Dementia, prediabetes and CVA in 2007 recently admitted to [facility] for evaluation and treatment of acute bloody diarrhea with R abdominal pain. CT evidence of left si ded colitis and treated with Cipro and Flagyl for colitis and his GI bleed eventually resolved, though diarrhea has been persistent and chronic (Cdiff negative). He was found to have low hemoglobin levels that remained stable between 8 - 9. Subsequently during this admission he suffered an acute ischemic stroke for he was evaluated by neurology and cardiology and treated with dual antiplatelet therapy. He had acute kidney injury and hypernatremia which was resolved with IV fluid hydrations under management of mathematical engineer. While in subacute rehab for rehabilitation, pt represented with bloody stools and dropping hemoglobin. Pt consented with for 2 units PRBC in preparation for Colonoscopy. Pt evaluated by Dr. Valero and team for dizziness and inability to fully engage in therapy. Admitted to [facility]. Plan: GI Bleed -GI Dr. Calvert: plan for colonoscopy possibly today. -clear liquid -FOBT +; stool leukocytes: negative and fat: normal -ASA and plavix discontinued -Pt continues to experience bloody stools. -c/w sucralfate -Cardiology: Dr. Potts for cardiac clearance: colonoscopy. Anemia, chronic -H/H: 7.8/24.1 pt -IV venofer -Pt consented for transfusion of 2 units PRBC UC, chronic -GI Dr. Calvert; started Cholestyramine and stool leukocytes and fat sent; plan for colonoscopy today -c/w Mesalamine CKD -Nephrology: Dr. Boone consulted: further recs appreciated Hypokalemia -3.5; likely 2/2 GI loss/diarrhea -s/p K runs -c/w KDUR 20 and k 40 meq 1/2 NS -f/u am labs HTN -controlled -c/w amlodipine, metoprolol DM - januvia: held for today; 2/2 NPO for colonoscopy and hypoglycemia hx of Acute CVA -Neuro: Dr. Sanchez; f/u neuro OP -c/w atorvastatin Dementia -c/w memantine Esophagitis, acute -S/P Diflucan Rhinitis -c/w Fluticasone and loratidine DVT/wound prophylaxis -scd (active bleed) -c/w Proshield Gait instability -PT/OT eval/treat -fall precautions Case and plan d/w Dr. Priyanka Collier MD PGY-2 <Gatito Mathew - Last Filed: 02/13/19 12:48> Objective - Vital Signs/Intake and Output Vital Signs (last 24 hours): Temp Pulse Resp BP Pulse Ox 97.6 F 82 18 111/73 95 02/13/19 12:00 02/13/19 12:00 02/13/19 12:00 02/13/19 12:00 02/13/19 12:00 - Medications Medications: Current Medications Acetaminophen (Tylenol 325mg Tab) 650 mg PO Q6 PRN PRN Reason: Pain, Mild (1-3) Last Admin: 02/13/19 10:38 Dose: 650 mg Atorvastatin Calcium (Lipitor) 40 mg PO DAILY JOVANNY Last Admin: 02/13/19 10:05 Dose: 40 mg Benzocaine/Menthol (Cepacol Sore Throat) 1 alysa PO Q3 PRN PRN Reason: Sore Throat Dextrose (Dextrose 50% Inj) 0 ml IV STAT PRN; Protocol PRN Reason: Hypoglycemia Protocol Last Admin: 02/06/19 05:35 Dose: 25 ml Dextrose (Glutose 15) 0 gm PO ONCE PRN; Protocol PRN Reason: Hypoglycemia Protocol Dimethicone (Proshield Plus Skin Protectant) 1 applic TOP Q8 PRN PRN Reason: derm Last Admin: 02/13/19 10:04 Dose: 1 applic Ergocalciferol (Drisdol 50,000 Intl Units Cap) 1 cap PO FR [facility] Last Admin: 02/08/19 16:12 Dose: 1 cap Fluticasone Propionate (Flonase) 2 spr PRIYA DAILY [facility] Last Admin: 02/13/19 10:07 Dose: 2 spr Glucagon (Glucagen Diagnostic Kit) 0 mg IM STAT PRN; Protocol PRN Reason: Hypoglycemia Protocol Iron Sucrose 100 mg/ Sodium (Chloride) 105 mls @ 105 mls/hr IVPB DAILY [facility] Last Admin: 02/12/19 12:07 Dose: 105 mls/hr Potassium Chloride/Dextrose/Sod Cl (Potassium Chl 20 Meq In D5-1/2ns) 1,000 mls @ 80 mls/hr IV .[id number] [facility] Stop: 02/14/19 09:54 Insulin Human Regular (Humulin R) 0 units SC ACHS [facility]; Protocol Last Admin: 02/13/19 08:07 Dose: Not Given Memantine (Namenda) 10 mg PO BID [facility] Last Admin: 02/13/19 10:05 Dose: 10 mg Mesalamine (Rowasa Enema) 4 gm RC [facility] Last Admin: 02/12/19 21:17 Dose: Not Given Methylprednisolone (Solu-Medrol) 20 mg IVP Q12H [facility] Last Admin: 02/13/19 10:05 Dose: 20 mg Metoprolol Succinate (Toprol Xl) 25 mg PO Q12 [facility] Last Admin: 02/13/19 10:09 Dose: Not Given Sennosides (Senokot Tab) 17.2 mg PO HS [facility] Last Admin: 02/12/19 21:18 Dose: 17.2 mg Sitagliptin Phosphate (Januvia) 25 mg PO DAILY [facility] Last Admin: 02/13/19 10:05 Dose: 25 mg Sucralfate (Carafate Oral Susp) 1 gm PO QID [facility] Last Admin: 02/13/19 09:33 Dose: 1 gm Tamsulosin HCl (Flomax) 0.4 mg PO DAILY [facility] Last Admin: 02/13/19 10:07 Dose: 0.4 mg - Labs Labs: 02/12/19 06:05 02/12/19 06:05 Assessment and Plan - Assessment and Plan (Free Text) Plan: Patient was personally seen and examined by me in rounds with residents. Available labs and diagnostic data reviewed. Case, Patient's condition and management plan discussed with residents in rounds. Agree with resident's progress note. Plan: As ordered.
[2019-02-06] MEDS ORDERED: Potassium Chloride 20 mEq ER Tab PO ONE (08:00)
[2019-02-06] MEDS: Insulin Regular 100 units/ml SC SCH ×4 (08:32→22:01)
[2019-02-06] MEDS: Sucralfate 1 gm/10 ml Oral Susp UD PO SCH ×4 (09:01→21:11)
[2019-02-06] MEDS ORDERED: Lactated Ringer's 500 ML IV ONE (13:38)
--- NOTE | 2019-02-06 13:56 | PQF ---
PROVIDER RESPONSE TEXT: Anemia due to acute blood loss and iron deficiency. REVIEWER QUERY TEXT: Anemia Type Anemia is documented in the Medical Record. Please specify the cause (includes suspected or probable cause) Such as: -- Due to acute blood loss -- Due to chronic blood loss -- Due to iron deficiency -- Due to chronic disease, please specify the disease -- Other, please specify The patient's Clinical Indicators include: History of Ulcerative Colitis. + bloody stools with a drop in HGB. Awaiting colonoscopy. Rx: PRBC, Venofer Query created by: Giselle Stern on 02/06/2019 7:52 AM Electronically signed by: Jesus Collier 02/06/2019 1:53 PM
[2019-02-06] MEDS: Proshield Plus GEL TOP PRN (14:07)
[2019-02-06] MEDS ORDERED: methylPREDNISolone 60 MG in Sodium Chloride 0.9% 50 ML IV ONE (14:45)
[2019-02-06] MEDS ORDERED: Desmopressin 4 mcg/ml Inj (1 ml) IVPB ONE (15:00)
--- NOTE | 2019-02-06 15:07 | CP.PCM.CON ---
History of Present Illness - History of Present Illness History of Present Illness: 78 y/o male with Hx/o ulcerative colitis, GI bleed, Lt nephrectomy for a malignant tumor ischemic stroke last month while in the hospital was transferred from acute rehab because of lower GI bleed & drop in Hb.Pt is known to me from his last admission to [facility] about 2 wks ago He was evaluated for abnormal renal function & hypernatremia. Pts Creat was stable @ 2.0 & hypernatremia was corrected with IV fluids Renal consult is requested today because the creat & Sodium levels are again increased Review of Systems - Constitutional Constitutional: Anorexia - Gastrointestinal Gastrointestinal: As Per HPI Past Patient History - Past Medical History & Family History Past Medical History?: Yes - Past Social History Smoking Status: Never Smoked - CARDIAC Hx Hypercholesterolemia: Yes Hx Hypertension: Yes - PULMONARY Hx Respiratory Disorders: No - NEUROLOGICAL Hx Dementia: Yes Hx Transient Ischemic Attacks (TIA): Yes - HEENT Hx HEENT Problems: No - RENAL Hx Chronic Kidney Disease: No - ENDOCRINE/METABOLIC Hx Endocrine Disorders: Yes Hx Diabetes Mellitus Type 2: Yes - HEMATOLOGICAL/ONCOLOGICAL Hx Anemia: Yes Hx Human Immunodeficiency Virus (HIV): No - INTEGUMENTARY Hx Dermatological Problems: No - MUSCULOSKELETAL/RHEUMATOLOGICAL Hx Musculoskeletal Disorders: Yes Hx Falls: Yes (4 months) Hx Gout: Yes Hx Unsteady Gait: Yes (post CVA) - GASTROINTESTINAL Hx Gastrointestinal Disorders: Yes Hx Colitis: Yes (chronic) Hx Gastroesophageal Reflux: Yes HX Swallowing Problems: Yes (current complaint) - GENITOURINARY/GYNECOLOGICAL Hx Genitourinary Disorders: Yes Hx Bladder Cancer: Yes Hx Hematuria: Yes Other/Comment: HX: URINARY FREQUENCY - PSYCHIATRIC Hx Psychophysiologic Disorder: No Hx Substance Use: No - SURGICAL HISTORY Hx Surgeries: Yes Other/Comment: HX: BLADDER CANCER TURBT. HX: NEPHROURETERECTOMY 2014. HX: CYSTOSCOPY WITH BLADDER BIOPSY AND FULGURATION(08/20/18) - ANESTHESIA Hx Anesthesia: Yes Hx Anesthesia Reactions: No Hx Malignant Hyperthermia: No Meds Allergies/Adverse Reactions: Allergies Allergy/AdvReac Type Severity Reaction Status Date / Time Penicillins Allergy RASH Verified 01/28/19 13:34 - Medications Medications: Current Medications Acetaminophen (Tylenol 325mg Tab) 650 mg PO Q6 PRN PRN Reason: Pain, Mild (1-3) Amlodipine Besylate (Norvasc) 5 mg PO DAILY [facility] Last Admin: 02/06/19 14:04 Dose: 5 mg Atorvastatin Calcium (Lipitor) 40 mg PO DAILY [facility] Last Admin: 02/06/19 10:00 Dose: 40 mg Benzocaine/Menthol (Cepacol Sore Throat) 1 alysa PO Q3 PRN PRN Reason: Sore Throat Dextrose (Dextrose 50% Inj) 0 ml IV STAT PRN; Protocol PRN Reason: Hypoglycemia Protocol Last Admin: 02/06/19 05:35 Dose: 25 ml Dextrose (Glutose 15) 0 gm PO ONCE PRN; Protocol PRN Reason: Hypoglycemia Protocol Dimethicone (Proshield Plus Skin Protectant) 1 applic TOP Q8 PRN PRN Reason: derm Last Admin: 02/06/19 14:07 Dose: 1 applic Ergocalciferol (Drisdol 50,000 Intl Units Cap) 1 cap PO FR [facility] Fluticasone Propionate (Flonase) 2 spr PRIYA DAILY [facility] Last Admin: 02/06/19 09:58 Dose: 2 spr Glucagon (Glucagen Diagnostic Kit) 0 mg IM STAT PRN; Protocol PRN Reason: Hypoglycemia Protocol Potassium Chloride 40 meq/ (Sodium Chloride) 1,020 mls @ 25 mls/hr IV .Q24H [facility] Stop: 02/06/19 16:13 Last Admin: 02/05/19 17:15 Dose: Not Given Iron Sucrose 100 mg/ Sodium (Chloride) 105 mls @ 105 mls/hr IVPB DAILY [facility] Last Admin: 02/06/19 08:49 Dose: 105 mls/hr Insulin Human Regular (Humulin R) 0 units SC ACHS [facility]; Protocol Last Admin: 02/06/19 12:03 Dose: Not Given Loratadine (Claritin) 10 mg PO DAILY [facility] Last Admin: 02/06/19 09:58 Dose: 10 mg Memantine (Namenda) 10 mg PO BID [facility] Last Admin: 02/06/19 13:58 Dose: 10 mg Mesalamine (Rowasa Enema) 4 gm RC HS [facility] Last Admin: 02/05/19 21:59 Dose: Not Given Metoprolol Tartrate (Lopressor) 25 mg PO Q12 [facility] Last Admin: 02/06/19 09:57 Dose: Not Given Sitagliptin Phosphate (Januvia) 25 mg PO DAILY [facility] Sucralfate (Carafate Oral Susp) 1 gm PO QID [facility] Last Admin: 02/06/19 13:55 Dose: 1 gm Tamsulosin HCl (Flomax) 0.4 mg PO DAILY [facility] Last Admin: 02/06/19 10:59 Dose: 0.4 mg Physical Exam - Constitutional Additional comments: Appears weak but in no acute distress. - Head Exam Head Exam: ATRAUMATIC, NORMOCEPHALIC - Eye Exam Additional comments: Conjunctiva pale sclera anicteric - ENT Exam ENT Exam: Mucous Membranes Dry - Neck Exam Additional comments: No jugular venous distension - Respiratory Exam Respiratory Exam: NORMAL BREATHING PATTERN Additional comments: Lungs clear - Cardiovascular Exam Cardiovascular Exam: REGULAR RHYTHM - GI/Abdominal Exam Additional comments: Abdomen is distended but soft. Mild diffuse tenderness. No guarding - Extremities Exam Additional comments: NO ECC Results - Vital Signs Recent Vital Signs: Last Vital Signs Temp 98.8 F 02/06/19 14:40 Pulse 65 02/06/19 14:40 Resp 20 02/06/19 14:40 BP 110/65 02/06/19 14:40 Pulse Ox 95 02/06/19 12:07 - Labs Result Diagrams: 02/06/19 05:00 02/06/19 05:00 Labs: Laboratory Results - last 24 hr 02/05/19 02/05/19 02/05/19 16:33 16:45 19:50 WBC RBC Hgb Hct MCV MCH MCHC RDW Plt Count Sodium Potassium Chloride Carbon Dioxide Anion Gap BUN Creatinine Est GFR ( Amer) Est GFR (Non-Af Amer) POC Glucose (mg/dL) 96 80 Random Glucose Calcium Total Bilirubin AST ALT Alkaline Phosphatase Total Protein Albumin Globulin Albumin/Globulin Ratio Blood Type O POSITIVE Antibody Screen Negative Crossmatch See Detail BBK History Checked Patient has bt 02/05/19 02/06/19 02/06/19 21:26 05:00 05:00 WBC 8.6 RBC 3.09 L Hgb 7.8 L Hct 24.1 L MCV 78.2 L D MCH 25.2 L MCHC 32.2 L RDW 19.4 H Plt Count 429 H Sodium 147 Potassium 3.5 L Chloride 120 H Carbon Dioxide 20 L Anion Gap 11 BUN 26 H Creatinine 2.1 H Est GFR ( Amer) 37 Est GFR (Non-Af Amer) 31 POC Glucose (mg/dL) 79 Random Glucose 67 L Calcium 7.7 L Total Bilirubin 0.5 AST 25 ALT 22 Alkaline Phosphatase 84 Total Protein 5.8 L Albumin 2.1 L Globulin 3.6 Albumin/Globulin Ratio 0.6 L Blood Type Antibody Screen Crossmatch BBK History Checked 02/06/19 02/06/19 02/06/19 05:21 05:50 11:02 WBC RBC Hgb Hct MCV MCH MCHC RDW Plt Count Sodium Potassium Chloride Carbon Dioxide Anion Gap BUN Creatinine Est GFR ( Amer) Est GFR (Non-Af Amer) POC Glucose (mg/dL) 69 156 H 85 Random Glucose Calcium Total Bilirubin AST ALT Alkaline Phosphatase Total Protein Albumin Globulin Albumin/Globulin Ratio Blood Type Antibody Screen Crossmatch BBK History Checked Assessment & Plan - Assessment and Plan (Free Text) Assessment: Acute on chronic kidney disease, Solitary Rt kidney. Acute increase in crest most likely due to dehydration Hypernatremia secondary to dehydration Lower DI bleed, Ulcerative colitis. Anemia Hx/o HTN, CVA Plan: Continue with D5 & 1/2 NS with KCl Monitor urine output Urinalysis & spot lytes
--- NOTE | 2019-02-06 16:21 | CP.PCM.PN ---
Subjective - Date & Time of Evaluation Date of Evaluation: 02/06/19 Time of Evaluation: 16:19 - Subjective Subjective: Having rectal bleeding and flatulence today. Objective - Vital Signs/Intake and Output Vital Signs (last 24 hours): Temp Pulse Resp BP Pulse Ox 98.3 F 69 18 111/63 100 02/06/19 16:14 02/06/19 16:14 02/06/19 16:14 02/06/19 16:14 02/06/19 16:14 Intake and Output: 02/06/19 02/06/19 06:59 18:59 Intake Total 274 100 Balance 274 100 - Medications Medications: Current Medications Acetaminophen (Tylenol 325mg Tab) 650 mg PO Q6 PRN PRN Reason: Pain, Mild (1-3) Amlodipine Besylate (Norvasc) 5 mg PO DAILY [facility] Last Admin: 02/06/19 14:04 Dose: 5 mg Atorvastatin Calcium (Lipitor) 40 mg PO DAILY [facility] Last Admin: 02/06/19 10:00 Dose: 40 mg Benzocaine/Menthol (Cepacol Sore Throat) 1 alysa PO Q3 PRN PRN Reason: Sore Throat Dextrose (Dextrose 50% Inj) 0 ml IV STAT PRN; Protocol PRN Reason: Hypoglycemia Protocol Last Admin: 02/06/19 05:35 Dose: 25 ml Dextrose (Glutose 15) 0 gm PO ONCE PRN; Protocol PRN Reason: Hypoglycemia Protocol Dimethicone (Proshield Plus Skin Protectant) 1 applic TOP Q8 PRN PRN Reason: derm Last Admin: 02/06/19 14:07 Dose: 1 applic Ergocalciferol (Drisdol 50,000 Intl Units Cap) 1 cap PO FR [facility] Fluticasone Propionate (Flonase) 2 spr PRIYA DAILY [facility] Last Admin: 02/06/19 09:58 Dose: 2 spr Glucagon (Glucagen Diagnostic Kit) 0 mg IM STAT PRN; Protocol PRN Reason: Hypoglycemia Protocol Iron Sucrose 100 mg/ Sodium (Chloride) 105 mls @ 105 mls/hr IVPB DAILY [facility] Last Admin: 02/06/19 08:49 Dose: 105 mls/hr Potassium Chloride/Dextrose/Sod Cl (Potassium Chl 20 Meq In D5-1/2ns) 1,000 mls @ 80 mls/hr IV .[id number] [facility] Stop: 02/07/19 15:11 Insulin Human Regular (Humulin R) 0 units SC ACHS [facility]; Protocol Last Admin: 02/06/19 12:03 Dose: Not Given Loratadine (Claritin) 10 mg PO DAILY [facility] Last Admin: 02/06/19 09:58 Dose: 10 mg Memantine (Namenda) 10 mg PO BID [facility] Last Admin: 02/06/19 13:58 Dose: 10 mg Mesalamine (Rowasa Enema) 4 gm RC HS [facility] Last Admin: 02/05/19 21:59 Dose: Not Given Metoprolol Tartrate (Lopressor) 25 mg PO Q12 [facility] Last Admin: 02/06/19 09:57 Dose: Not Given Sitagliptin Phosphate (Januvia) 25 mg PO DAILY [facility] Sucralfate (Carafate Oral Susp) 1 gm PO QID [facility] Last Admin: 02/06/19 13:55 Dose: 1 gm Tamsulosin HCl (Flomax) 0.4 mg PO DAILY [facility] Last Admin: 02/06/19 10:59 Dose: 0.4 mg - Labs Labs: 02/06/19 05:00 02/06/19 05:00 - Head Exam Head Exam: ATRAUMATIC - Eye Exam Eye Exam: Normal appearance - ENT Exam ENT Exam: Mucous Membranes Moist - Respiratory Exam Respiratory Exam: Clear to Ausculation Bilateral - Cardiovascular Exam Cardiovascular Exam: REGULAR RHYTHM - GI/Abdominal Exam GI & Abdominal Exam: Distended, Normal Bowel Sounds Assessment and Plan (1) GI bleed Assessment & Plan: Continues with blood per rectum. Patient being transfused. A dose of steroids and DDAVP given Status: Resolved
[2019-02-06] MEDS: Potassium Ch 20mEq in D5-1/2NS 1,000 ML IV SCH (16:36)
--- NOTE | 2019-02-06 18:44 | CP.PCM.PN ---
Objective - Vital Signs/Intake and Output Vital Signs (last 24 hours): Temp Pulse Resp BP Pulse Ox 98.9 F 70 20 110/67 100 02/06/19 17:27 02/06/19 17:27 02/06/19 17:27 02/06/19 17:27 02/06/19 16:14 Intake and Output: 02/06/19 02/06/19 06:59 18:59 Intake Total 274 483 Balance 274 483 - Medications Medications: Current Medications Acetaminophen (Tylenol 325mg Tab) 650 mg PO Q6 PRN PRN Reason: Pain, Mild (1-3) Amlodipine Besylate (Norvasc) 5 mg PO DAILY [facility] Last Admin: 02/06/19 14:04 Dose: 5 mg Atorvastatin Calcium (Lipitor) 40 mg PO DAILY [facility] Last Admin: 02/06/19 10:00 Dose: 40 mg Benzocaine/Menthol (Cepacol Sore Throat) 1 alysa PO Q3 PRN PRN Reason: Sore Throat Dextrose (Dextrose 50% Inj) 0 ml IV STAT PRN; Protocol PRN Reason: Hypoglycemia Protocol Last Admin: 02/06/19 05:35 Dose: 25 ml Dextrose (Glutose 15) 0 gm PO ONCE PRN; Protocol PRN Reason: Hypoglycemia Protocol Dimethicone (Proshield Plus Skin Protectant) 1 applic TOP Q8 PRN PRN Reason: derm Last Admin: 02/06/19 14:07 Dose: 1 applic Ergocalciferol (Drisdol 50,000 Intl Units Cap) 1 cap PO FR [facility] Fluticasone Propionate (Flonase) 2 spr PRIYA DAILY [facility] Last Admin: 02/06/19 09:58 Dose: 2 spr Glucagon (Glucagen Diagnostic Kit) 0 mg IM STAT PRN; Protocol PRN Reason: Hypoglycemia Protocol Iron Sucrose 100 mg/ Sodium (Chloride) 105 mls @ 105 mls/hr IVPB DAILY [facility] Last Admin: 02/06/19 08:49 Dose: 105 mls/hr Potassium Chloride/Dextrose/Sod Cl (Potassium Chl 20 Meq In D5-1/2ns) 1,000 mls @ 80 mls/hr IV .[id number] [facility] Stop: 02/07/19 15:11 Last Admin: 02/06/19 16:36 Dose: 80 mls/hr Insulin Human Regular (Humulin R) 0 units SC ACHS [facility]; Protocol Last Admin: 02/06/19 16:50 Dose: Not Given Loratadine (Claritin) 10 mg PO DAILY [facility] Last Admin: 02/06/19 09:58 Dose: 10 mg Memantine (Namenda) 10 mg PO BID [facility] Last Admin: 02/06/19 17:36 Dose: 10 mg Mesalamine (Rowasa Enema) 4 gm RC HS [facility] Last Admin: 02/05/19 21:59 Dose: Not Given Metoprolol Tartrate (Lopressor) 25 mg PO Q12 [facility] Last Admin: 02/06/19 09:57 Dose: Not Given Sitagliptin Phosphate (Januvia) 25 mg PO DAILY [facility] Sucralfate (Carafate Oral Susp) 1 gm PO QID [facility] Last Admin: 02/06/19 17:36 Dose: 1 gm Tamsulosin HCl (Flomax) 0.4 mg PO DAILY [facility] Last Admin: 02/06/19 10:59 Dose: 0.4 mg - Labs Labs: 02/06/19 05:00 02/06/19 05:00
[2019-02-06 20:43] LABS: HEMOGLOBIN 8.3 g/dL (12.0-18.0)
--- NOTE | 2019-02-06 21:14 | CP.PCM.CON ---
History of Present Illness - History of Present Illness History of Present Illness: ASKED TO SEE PT BY DR TAYLOR FOR PRE-OP CARDIAC RISK ASSESSMENT. 78 y/o male with acute GIB for several days. Pt is scheduled to undergo colonoscopy and pre-op eval was requested. Pt has a hx of UC, and gib. Additionally pt has a history of ischemic cva (treated with dual antiplt therapy). Recently while in [facility] pt developed dizziness and weakness and was noted to have GIB and severe anemia. Pt is fatigued and not responding fully to questions. He appears fatigued, chronically ill and confused. PT does however deny cp, palp, sob, orthopnea or pnd. I asked about these symptoms 3 different times to confirm his denial. Given his current state of health remainder of history is per the chart and RN. PMH: Ulcerative colitis, Hypotension, Bladder Ca, Dementia, prediabetes and CVA in 2007 Review of Systems - Review of Systems Systems not reviewed;Unavailable: Acuity of Condition, Altered Mental Status Past Patient History - Past Medical History & Family History Past Medical History?: Yes Past Family History: Reviewed and not pertinent - Past Social History Smoking Status: Never Smoked Chewing Tobacco Use: No Cigar Use: No Alcohol: None Drugs: Denies Home Situation {Lives}: Other - CARDIAC Hx Cardiac Disorders: Yes Hx Hypercholesterolemia: Yes Hx Hypertension: Yes - PULMONARY Hx Respiratory Disorders: No - NEUROLOGICAL Hx Neurological Disorder: Yes Hx Dementia: Yes Hx Transient Ischemic Attacks (TIA): Yes - HEENT Hx HEENT Problems: No - RENAL Hx Chronic Kidney Disease: No - ENDOCRINE/METABOLIC Hx Endocrine Disorders: Yes Hx Diabetes Mellitus Type 2: Yes - HEMATOLOGICAL/ONCOLOGICAL Hx Blood Disorders: Yes Hx Anemia: Yes Hx Human Immunodeficiency Virus (HIV): No - INTEGUMENTARY Hx Dermatological Problems: No - MUSCULOSKELETAL/RHEUMATOLOGICAL Hx Musculoskeletal Disorders: Yes Hx Falls: Yes (4 months) Hx Gout: Yes Hx Unsteady Gait: Yes (post CVA) - GASTROINTESTINAL Hx Gastrointestinal Disorders: Yes Hx Colitis: Yes (chronic) Hx Gastroesophageal Reflux: Yes HX Swallowing Problems: Yes (current complaint) - GENITOURINARY/GYNECOLOGICAL Hx Genitourinary Disorders: Yes Hx Bladder Cancer: Yes Hx Hematuria: Yes Other/Comment: HX: URINARY FREQUENCY - PSYCHIATRIC Hx Psychophysiologic Disorder: No Hx Substance Use: No - SURGICAL HISTORY Hx Surgeries: Yes Other/Comment: HX: BLADDER CANCER TURBT. HX: NEPHROURETERECTOMY 2014. HX: CYSTOSCOPY WITH BLADDER BIOPSY AND FULGURATION(08/20/18) - ANESTHESIA Hx Anesthesia: Yes Hx Anesthesia Reactions: No Hx Malignant Hyperthermia: No Meds Allergies/Adverse Reactions: Allergies Allergy/AdvReac Type Severity Reaction Status Date / Time Penicillins Allergy RASH Verified 01/28/19 13:34 - Medications Medications: Current Medications Acetaminophen (Tylenol 325mg Tab) 650 mg PO Q6 PRN PRN Reason: Pain, Mild (1-3) Amlodipine Besylate (Norvasc) 5 mg PO DAILY [facility] Last Admin: 02/06/19 14:04 Dose: 5 mg Atorvastatin Calcium (Lipitor) 40 mg PO DAILY [facility] Last Admin: 02/06/19 10:00 Dose: 40 mg Benzocaine/Menthol (Cepacol Sore Throat) 1 alysa PO Q3 PRN PRN Reason: Sore Throat Dextrose (Dextrose 50% Inj) 0 ml IV STAT PRN; Protocol PRN Reason: Hypoglycemia Protocol Last Admin: 02/06/19 05:35 Dose: 25 ml Dextrose (Glutose 15) 0 gm PO ONCE PRN; Protocol PRN Reason: Hypoglycemia Protocol Dimethicone (Proshield Plus Skin Protectant) 1 applic TOP Q8 PRN PRN Reason: derm Last Admin: 02/06/19 14:07 Dose: 1 applic Ergocalciferol (Drisdol 50,000 Intl Units Cap) 1 cap PO FR [facility] Fluticasone Propionate (Flonase) 2 spr PRIYA DAILY [facility] Last Admin: 02/06/19 09:58 Dose: 2 spr Glucagon (Glucagen Diagnostic Kit) 0 mg IM STAT PRN; Protocol PRN Reason: Hypoglycemia Protocol Iron Sucrose 100 mg/ Sodium (Chloride) 105 mls @ 105 mls/hr IVPB DAILY [facility] Last Admin: 02/06/19 08:49 Dose: 105 mls/hr Potassium Chloride/Dextrose/Sod Cl (Potassium Chl 20 Meq In D5-1/2ns) 1,000 mls @ 80 mls/hr IV .[id number] [facility] Stop: 02/07/19 15:11 Last Admin: 02/06/19 16:36 Dose: 80 mls/hr Insulin Human Regular (Humulin R) 0 units SC ACHS [facility]; Protocol Last Admin: 02/06/19 16:50 Dose: Not Given Loratadine (Claritin) 10 mg PO DAILY [facility] Last Admin: 02/06/19 09:58 Dose: 10 mg Memantine (Namenda) 10 mg PO BID [facility] Last Admin: 02/06/19 17:36 Dose: 10 mg Mesalamine (Rowasa Enema) 4 gm RC HS [facility] Last Admin: 02/05/19 21:59 Dose: Not Given Metoprolol Tartrate (Lopressor) 25 mg PO Q12 [facility] Last Admin: 02/06/19 09:57 Dose: Not Given Sitagliptin Phosphate (Januvia) 25 mg PO DAILY [facility] Sucralfate (Carafate Oral Susp) 1 gm PO QID [facility] Last Admin: 02/06/19 17:36 Dose: 1 gm Tamsulosin HCl (Flomax) 0.4 mg PO DAILY [facility] Last Admin: 02/06/19 10:59 Dose: 0.4 mg Physical Exam - Constitutional Appears: Chronically Ill - Head Exam Head Exam: ATRAUMATIC, NORMAL INSPECTION, NORMOCEPHALIC - Eye Exam Eye Exam: EOMI, Normal appearance, PERRL. absent: Conjunctival injection, Nystagmus, Periorbital swelling, Periorbital tenderness, Scleral icterus Pupil Exam: NORMAL ACCOMODATION, PERRL. absent: Fixed, Irregular, Miosis, Mydr iatic, Unequal - ENT Exam ENT Exam: Mucous Membranes Moist, Normal Exam. absent: Mucous Membranes Dry, Normal External Ear Exam, Normal Oropharynx, TM's Normal Bilaterally - Neck Exam Neck exam: Positive for: Normal Inspection. Negative for: Full Rom, Lymphadenopathy, Meningismus, Tenderness, Thyromegaly - Respiratory Exam Respiratory Exam: Clear to Auscultation Bilateral, NORMAL BREATHING PATTERN. absent: Accessory Muscle Use, Chest Wall Tenderness, Decreased Breath Sounds, Prolonged Expiratory Phase, Rales, Rhonchi, Wheezes, Respiratory Distress, Stridor - Cardiovascular Exam Cardiovascular Exam: REGULAR RHYTHM, +S1, +S2, Systolic Murmur. absent: Bradycardia, Tachycardia, Clicks, Diastolic murmur, Gallop, Irregular Rhythm, JVD, RRR, Rubs, +S4 - GI/Abdominal Exam GI & Abdominal Exam: Distended, Normal Bowel Sounds, Soft, Tenderness. absent: Bruit, Diminished Bowel Sounds, Firm, Guarding, Hernia, Hyperactive Bowel Sounds, Hypoactive Bowel Sounds, Mass, Organomegaly, Pulsatile Mass, Rebound, Rigid - Rectal Exam Rectal Exam: Deferred - Extremities Exam Extremities exam: Positive for: normal capillary refill, normal inspection, pedal edema, pedal pulses present. Negative for: calf tenderness, full ROM, jose luis int swelling, tenderness - Back Exam Back exam: NORMAL INSPECTION. absent: CVA tenderness (L), CVA tenderness (R), FULL ROM, muscle spasm, paraspinal tenderness, rash noted, tenderness, vertebral tenderness - Neurological Exam Neurological exam: Alert - Psychiatric Exam Psychiatric exam: Normal Affect, Normal Mood - Skin Skin Exam: Dry, Intact, Normal Color, Warm Results - Vital Signs Recent Vital Signs: Last Vital Signs Temp 98.4 F 02/06/19 20:17 Pulse 70 02/06/19 20:17 Resp 18 02/06/19 20:17 BP 99/61 L 02/06/19 20:17 Pulse Ox 99 02/06/19 20:17 - Labs Result Diagrams: 02/06/19 20:20 02/06/19 05:00 Labs: Laboratory Results - last 24 hr 02/05/19 02/05/19 02/06/19 16:45 21:26 05:00 WBC 8.6 RBC 3.09 L Hgb 7.8 L Hct 24.1 L MCV 78.2 L D MCH 25.2 L MCHC 32.2 L RDW 19.4 H Plt Count 429 H Sodium Potassium Chloride Carbon Dioxide Anion Gap BUN Creatinine Est GFR ( Amer) Est GFR (Non-Af Amer) POC Glucose (mg/dL) 79 Random Glucose Calcium Total Bilirubin AST ALT Alkaline Phosphatase Total Protein Albumin Globulin Albumin/Globulin Ratio Blood Type O POSITIVE Antibody Screen Negative Crossmatch See Detail BBK History Checked Patient has bt 02/06/19 02/06/19 02/06/19 05:00 05:21 05:50 WBC RBC Hgb Hct MCV MCH MCHC RDW Plt Count Sodium 147 Potassium 3.5 L Chloride 120 H Carbon Dioxide 20 L Anion Gap 11 BUN 26 H Creatinine 2.1 H Est GFR ( Amer) 37 Est GFR (Non-Af Amer) 31 POC Glucose (mg/dL) 69 156 H Random Glucose 67 L Calcium 7.7 L Total Bilirubin 0.5 AST 25 ALT 22 Alkaline Phosphatase 84 Total Protein 5.8 L Albumin 2.1 L Globulin 3.6 Albumin/Globulin Ratio 0.6 L Blood Type Antibody Screen Crossmatch BBK History Checked 02/06/19 02/06/19 11:02 15:53 WBC RBC Hgb Hct MCV MCH MCHC RDW Plt Count Sodium Potassium Chloride Carbon Dioxide Anion Gap BUN Creatinine Est GFR ( Amer) Est GFR (Non-Af Amer) POC Glucose (mg/dL) 85 98 Random Glucose Calcium Total Bilirubin AST ALT Alkaline Phosphatase Total Protein Albumin Globulin Albumin/Globulin Ratio Blood Type Antibody Screen Crossmatch BBK History Checked Assessment & Plan (1) Pre-operative cardiovascular examination Status: Acute (2) Anemia Status: Acute (3) GI bleed Status: Resolved (4) Ischemic stroke Status: Resolved (5) HTN (hypertension) Status: Chronic (6) High triglycerides Status: Chronic (7) Ulcerative colitis, chronic Status: Chronic - Assessment and Plan (Free Text) Plan: GIVEN THE ABSCENSE OF ACTIVE CORONARY SYMPTOMS OR CHF PT MAY PROCEED WITH SEMI- URGENT, LOW RISK PROCEDURE OF COLONOSCOPY. HE A IS LOW TO INTERMEDIATE RISK FOR CARDIOVASCULAR EVENTS BASED SOLELY ON HIS HISTORY. RECOMMEND EKG TO R/O ANY ACUTE CHANGES PRIOR TO PROCEDURE RECOMMEND CONTINUING BETA SINGH THERAPY PERIOP PRIOR ECHO RESULTS REVIEWED, PT HAS NORMAL EF. RECOMMEND KEEPING HB AT 9 OR GREATER. 45 MIN TOTAL CARE TIME.
[2019-02-07] MEDS: Potassium Ch 20mEq in D5-1/2NS 1,000 ML IV SCH ×2 (06:22→22:30)
--- NOTE | 2019-02-07 06:46 | CP.PCM.PN ---
<Jesus Collier - Last Filed: 02/07/19 09:57> Subjective - Date & Time of Evaluation Date of Evaluation: 02/07/19 Time of Evaluation: 06:46 - Subjective Subjective: Pt seen and examined at bedside with attending, Dr. Mathew. Pt denies acute overnight events. pt denies abdominal pain, N/V. Remains afebrile. Objective - Vital Signs/Intake and Output Vital Signs (last 24 hours): Temp Pulse Resp BP Pulse Ox 97.5 F L 59 L 18 106/53 L 100 02/07/19 05:27 02/07/19 05:27 02/07/19 05:27 02/07/19 05:27 02/07/19 05:27 Intake and Output: 02/06/19 02/07/19 18:59 06:59 Intake Total 483 Balance 483 - Medications Medications: Current Medications Acetaminophen (Tylenol 325mg Tab) 650 mg PO Q6 PRN PRN Reason: Pain, Mild (1-3) Amlodipine Besylate (Norvasc) 5 mg PO DAILY [facility] Last Admin: 02/06/19 14:04 Dose: 5 mg Atorvastatin Calcium (Lipitor) 40 mg PO DAILY [facility] Last Admin: 02/06/19 10:00 Dose: 40 mg Benzocaine/Menthol (Cepacol Sore Throat) 1 alysa PO Q3 PRN PRN Reason: Sore Throat Dextrose (Dextrose 50% Inj) 0 ml IV STAT PRN; Protocol PRN Reason: Hypoglycemia Protocol Last Admin: 02/06/19 05:35 Dose: 25 ml Dextrose (Glutose 15) 0 gm PO ONCE PRN; Protocol PRN Reason: Hypoglycemia Protocol Dimethicone (Proshield Plus Skin Protectant) 1 applic TOP Q8 PRN PRN Reason: derm Last Admin: 02/06/19 14:07 Dose: 1 applic Ergocalciferol (Drisdol 50,000 Intl Units Cap) 1 cap PO FR [facility] Fluticasone Propionate (Flonase) 2 spr PRIYA DAILY [facility] Last Admin: 02/06/19 09:58 Dose: 2 spr Glucagon (Glucagen Diagnostic Kit) 0 mg IM STAT PRN; Protocol PRN Reason: Hypoglycemia Protocol Iron Sucrose 100 mg/ Sodium (Chloride) 105 mls @ 105 mls/hr IVPB DAILY [facility] Last Admin: 02/06/19 08:49 Dose: 105 mls/hr Potassium Chloride/Dextrose/Sod Cl (Potassium Chl 20 Meq In D5-1/2ns) 1,000 mls @ 80 mls/hr IV .[id number] [facility] Stop: 02/07/19 15:11 Last Admin: 02/07/19 06:22 Dose: 80 mls/hr Insulin Human Regular (Humulin R) 0 units SC ACHS [facility]; Protocol Last Admin: 02/06/19 22:01 Dose: Not Given Loratadine (Claritin) 10 mg PO DAILY [facility] Last Admin: 02/06/19 09:58 Dose: 10 mg Memantine (Namenda) 10 mg PO BID [facility] Last Admin: 02/06/19 17:36 Dose: 10 mg Mesalamine (Rowasa Enema) 4 gm RC HS [facility] Last Admin: 02/06/19 21:12 Dose: 4 gm Metoprolol Tartrate (Lopressor) 25 mg PO Q12 [facility] Last Admin: 02/06/19 21:11 Dose: Not Given Sitagliptin Phosphate (Januvia) 25 mg PO DAILY [facility] Sucralfate (Carafate Oral Susp) 1 gm PO QID [facility] Last Admin: 02/06/19 21:11 Dose: 1 gm Tamsulosin HCl (Flomax) 0.4 mg PO DAILY [facility] Last Admin: 02/06/19 10:59 Dose: 0.4 mg - Labs Labs: 02/06/19 20:20 02/06/19 05:00 - Constitutional Appears: No Acute Distress - Eye Exam Eye Exam: EOMI - ENT Exam ENT Exam: Mucous Membranes Moist - Respiratory Exam Respiratory Exam: Clear to Ausculation Bilateral, NORMAL BREATHING PATTERN. absent: Wheezes - Cardiovascular Exam Cardiovascular Exam: +S1, +S2 - GI/Abdominal Exam GI & Abdominal Exam: Soft, Normal Bowel Sounds. absent: Tenderness Additional comments: Pt with dark stool mixed with blood. - Neurological Exam Neurological Exam: Alert, Awake Assessment and Plan (1) Ulcerative colitis, chronic Status: Chronic (2) CKD (chronic kidney disease) Status: Acute (3) Diabetes Status: Acute (4) Dementia Status: Acute (5) Gait instability Status: Acute (6) Anemia Status: Acute (7) HTN (hypertension) Status: Chronic (9) Acute blood loss anemia Status: Resolved - Assessment and Plan (Free Text) Assessment: 78 y/o male with PMH of Ulcerative colitis, HTN, Bladder Ca, Dementia, prediabetes and CVA in 2007 recently admitted to [facility] for evaluation and treatment of acute bloody diarrhea with R abdominal pain. CT evidence of left sided colitis and treated with Cipro and Flagyl for colitis and his GI bleed eventually resolved, though diarrhea has been persistent and chronic (Cdiff negative). He was found to have low hemoglobin levels that remained stable between 8 - 9. Subsequently during this admission he suffered an acute ischemic stroke for he was evaluated by neurology and cardiology and treated with dual antiplatelet therapy. He had acute kidney injury and hypernatremia which was resolved with IV fluid hydrations under management of innersole maker. While in subacute rehab for rehabilitation, pt represented with bloody stools and dropping hemoglobin. Pt consented with for 2 units PRBC in preparation for Colonoscopy. Pt evaluated by Dr. Valero and team for dizziness and inability to fully engage in therapy. Admitted to tele. Plan: GI Bleed -GI Dr. Calvert: plan for colonoscopy possibly tomorrow. Pt agrees for golytely prior. -heart healthy -FOBT +; stool leukocytes: negative and fat: normal -ASA and plavix discontinued -Pt continues to experience bloody stools. -c/w sucralfate -Cardiology: Dr. Potts for cardiac clearance: colonoscopy.; keep hgb at 9; EKG. continue bb Anemia, chronic -H/H: 8.3/26.0 -Type and cross match 2 units; 1 unit ordered to be given to reach hgb of 9 -s/p IV venofer -pt to start po iron UC, chronic -GI Dr. Calvert; started Cholestyramine and stool leukocytes and fat sent; plan for colonoscopy tomorrow -c/w Mesalamine CKD -acute on chronic kidney disease with solitary R kidney. -Nephrology: Dr. Boone consulted: continue d5 1/2 ns with Kcl; monitor urine output; UA, spot lytes Hypokalemia -resolved -3.7; likely 2/2 GI loss/diarrhea -s/p K runs -c/w d5 1/2 ns with Kcl -f/u am labs HTN -controlled -c/w amlodipine, metoprolol DM -c/w januvia Hx of Acute CVA -Neuro: Dr. Sanchez; f/u neuro OP -c/w atorvastatin Dementia -c/w memantine Esophagitis, acute -S/P Diflucan Rhinitis -c/w Fluticasone and loratidine DVT/wound prophylaxis -scd (active bleed) -c/w Proshield Gait instability -PT/OT eval/treat -fall precautions Case and plan d/w Dr. Priyanka Collier MD PGY-2 <Gatito Mathew - Last Filed: 02/13/19 12:47> Objective - Vital Signs/Intake and Output Vital Signs (last 24 hours): Temp Pulse Resp BP Pulse Ox 97.6 F 82 18 111/73 95 02/13/19 12:00 02/13/19 12:00 02/13/19 12:00 02/13/19 12:00 02/13/19 12:00 - Medications Medications: Current Medications Acetaminophen (Tylenol 325mg Tab) 650 mg PO Q6 PRN PRN Reason: Pain, Mild (1-3) Last Admin: 02/13/19 10:38 Dose: 650 mg Atorvastatin Calcium (Lipitor) 40 mg PO DAILY [facility] Last Admin: 02/13/19 10:05 Dose: 40 mg Benzocaine/Menthol (Cepacol Sore Throat) 1 alysa PO Q3 PRN PRN Reason: Sore Throat Dextrose (Dextrose 50% Inj) 0 ml IV STAT PRN; Protocol PRN Reason: Hypoglycemia Protocol Last Admin: 02/06/19 05:35 Dose: 25 ml Dextrose (Glutose 15) 0 gm PO ONCE PRN; Protocol PRN Reason: Hypoglycemia Protocol Dimethicone (Proshield Plus Skin Protectant) 1 applic TOP Q8 PRN PRN Reason: derm Last Admin: 02/13/19 10:04 Dose: 1 applic Ergocalciferol (Drisdol 50,000 Intl Units Cap) 1 cap PO FR [facility] Last Admin: 02/08/19 16:12 Dose: 1 cap Fluticasone Propionate (Flonase) 2 spr PRIYA DAILY [facility] Last Admin: 02/13/19 10:07 Dose: 2 spr Glucagon (Glucagen Diagnostic Kit) 0 mg IM STAT PRN; Protocol PRN Reason: Hypoglycemia Protocol Iron Sucrose 100 mg/ Sodium (Chloride) 105 mls @ 105 mls/hr IVPB DAILY [facility] Last Admin: 02/12/19 12:07 Dose: 105 mls/hr Potassium Chloride/Dextrose/Sod Cl (Potassium Chl 20 Meq In D5-1/2ns) 1,000 mls @ 80 mls/hr IV .[id number] [facility] Stop: 02/14/19 09:54 Insulin Human Regular (Humulin R) 0 units SC ACHS [facility]; Protocol Last Admin: 02/13/19 08:07 Dose: Not Given Memantine (Namenda) 10 mg PO BID [facility] Last Admin: 02/13/19 10:05 Dose: 10 mg Mesalamine (Rowasa Enema) 4 gm RC [facility] Last Admin: 02/12/19 21:17 Dose: Not Given Methylprednisolone (Solu-Medrol) 20 mg IVP Q12H [facility] Last Admin: 02/13/19 10:05 Dose: 20 mg Metoprolol Succinate (Toprol Xl) 25 mg PO Q12 [facility] Last Admin: 02/13/19 10:09 Dose: Not Given Sennosides (Senokot Tab) 17.2 mg PO [facility] Last Admin: 02/12/19 21:18 Dose: 17.2 mg Sitagliptin Phosphate (Januvia) 25 mg PO DAILY [facility] Last Admin: 02/13/19 10:05 Dose: 25 mg Sucralfate (Carafate Oral Susp) 1 gm PO QID [facility] Last Admin: 02/13/19 09:33 Dose: 1 gm Tamsulosin HCl (Flomax) 0.4 mg PO DAILY [facility] Last Admin: 02/13/19 10:07 Dose: 0.4 mg - Labs Labs: 02/12/19 06:05 02/12/19 06:05 Assessment and Plan - Assessment and Plan (Free Text) Plan: Patient was personally seen and examined by me in rounds with residents. Available labs and diagnostic data reviewed. Case, Patient's condition and management plan discussed with residents in rounds. Agree with resident's progress note. Plan: As ordered.
[2019-02-07 06:54] LABS: HEMOGLOBIN 8.3 g/dL (12.0-18.0); MEAN CELL VOLUME 79.9 fl (80.0-94.0); MEAN CORPUSCULAR HEMOGLOBIN 25.5 pg (27.0-31.0); MEAN CORPUSCULAR HGB CONC 31.9 g/dL (33.0-37.0); RBC 3.26 Mil/uL (4.40-5.90); RED CELL DISTRIBUTION WIDTH 20.3 % (11.5-14.5); WHITE BLOOD COUNT 6.3 K/uL (4.8-10.8)
[2019-02-07 07:20] LABS: ALB/GLOB RATIO 0.6 (1.0-2.1); ALBUMIN 2.1 g/dL (3.5-5.0); CALCIUM 7.5 mg/dL (8.4-10.2)
--- NOTE | 2019-02-07 09:41 | CP.PCM.PN ---
<Ian Tiwari - Last Filed: 02/07/19 09:49> Subjective - Date & Time of Evaluation Date of Evaluation: 02/07/19 Time of Evaluation: 09:34 - Subjective Subjective: GI NOTE FOR DR. CLARKE 78M seen and examined at bedside. Mild right abdominal pain, denies nausea or vomiting, patient is tolerating diet. Continues to have dark stools per nurse. Objective - Vital Signs/Intake and Output Vital Signs (last 24 hours): Temp Pulse Resp BP Pulse Ox 97.6 F 61 18 118/51 L 99 02/07/19 07:48 02/07/19 07:48 02/07/19 07:48 02/07/19 07:48 02/07/19 07:48 - Medications Medications: Current Medications Acetaminophen (Tylenol 325mg Tab) 650 mg PO Q6 PRN PRN Reason: Pain, Mild (1-3) Amlodipine Besylate (Norvasc) 5 mg PO DAILY [facility] Last Admin: 02/06/19 14:04 Dose: 5 mg Atorvastatin Calcium (Lipitor) 40 mg PO DAILY [facility] Last Admin: 02/06/19 10:00 Dose: 40 mg Benzocaine/Menthol (Cepacol Sore Throat) 1 alysa PO Q3 PRN PRN Reason: Sore Throat Dextrose (Dextrose 50% Inj) 0 ml IV STAT PRN; Protocol PRN Reason: Hypoglycemia Protocol Last Admin: 02/06/19 05:35 Dose: 25 ml Dextrose (Glutose 15) 0 gm PO ONCE PRN; Protocol PRN Reason: Hypoglycemia Protocol Dimethicone (Proshield Plus Skin Protectant) 1 applic TOP Q8 PRN PRN Reason: derm Last Admin: 02/06/19 14:07 Dose: 1 applic Ergocalciferol (Drisdol 50,000 Intl Units Cap) 1 cap PO FR [facility] Fluticasone Propionate (Flonase) 2 spr PRIYA DAILY [facility] Last Admin: 02/06/19 09:58 Dose: 2 spr Glucagon (Glucagen Diagnostic Kit) 0 mg IM STAT PRN; Protocol PRN Reason: Hypoglycemia Protocol Iron Sucrose 100 mg/ Sodium (Chloride) 105 mls @ 105 mls/hr IVPB DAILY [facility] Last Admin: 02/06/19 08:49 Dose: 105 mls/hr Potassium Chloride/Dextrose/Sod Cl (Potassium Chl 20 Meq In D5-1/2ns) 1,000 mls @ 80 mls/hr IV .[id number] [facility] Stop: 02/07/19 15:11 Last Admin: 02/07/19 06:22 Dose: 80 mls/hr Insulin Human Regular (Humulin R) 0 units SC ACHS [facility]; Protocol Last Admin: 02/06/19 22:01 Dose: Not Given Loratadine (Claritin) 10 mg PO DAILY [facility] Last Admin: 02/06/19 09:58 Dose: 10 mg Memantine (Namenda) 10 mg PO BID [facility] Last Admin: 02/06/19 17:36 Dose: 10 mg Mesalamine (Rowasa Enema) 4 gm RC HS [facility] Last Admin: 02/06/19 21:12 Dose: 4 gm Metoprolol Tartrate (Lopressor) 25 mg PO Q12 [facility] Last Admin: 02/06/19 21:11 Dose: Not Given Sitagliptin Phosphate (Januvia) 25 mg PO DAILY [facility] Sucralfate (Carafate Oral Susp) 1 gm PO QID [facility] Last Admin: 02/06/19 21:11 Dose: 1 gm Tamsulosin HCl (Flomax) 0.4 mg PO DAILY [facility] Last Admin: 02/06/19 10:59 Dose: 0.4 mg - Labs Labs: 02/07/19 04:55 02/07/19 04:45 - Constitutional Appears: Non-toxic, No Acute Distress - Respiratory Exam Respiratory Exam: Clear to Ausculation Bilateral, NORMAL BREATHING PATTERN - Cardiovascular Exam Cardiovascular Exam: REGULAR RHYTHM, +S1, +S2 - GI/Abdominal Exam GI & Abdominal Exam: Soft, Tenderness (very mild right abdomen). absent: Distended, Firm, Guarding, Rigid, Rebound - Neurological Exam Neurological Exam: Alert, Awake Assessment and Plan - Assessment and Plan (Free Text) Assessment: 78M with rectal bleed Plan: hgb stable cont to monitor hgb Will discuss endoscopy Further recs per Dr. Enrike Tiwari, PGY3 <Austin Clarke - Last Filed: 02/07/19 21:50> Objective - Vital Signs/Intake and Output Vital Signs (last 24 hours): Temp Pulse Resp BP Pulse Ox 97.5 F L 70 20 110/71 98 02/07/19 20:49 02/07/19 20:49 02/07/19 20:49 02/07/19 20:49 02/07/19 19:56 Intake and Output: 02/07/19 02/08/19 18:59 06:59 Intake Total 20 Balance 20 - Medications Medications: Current Medications Acetaminophen (Tylenol 325mg Tab) 650 mg PO Q6 PRN PRN Reason: Pain, Mild (1-3) Amlodipine Besylate (Norvasc) 5 mg PO DAILY [facility] Last Admin: 02/07/19 09:51 Dose: 5 mg Atorvastatin Calcium (Lipitor) 40 mg PO DAILY [facility] Last Admin: 02/07/19 09:50 Dose: 40 mg Benzocaine/Menthol (Cepacol Sore Throat) 1 alysa PO Q3 PRN PRN Reason: Sore Throat Dextrose (Dextrose 50% Inj) 0 ml IV STAT PRN; Protocol PRN Reason: Hypoglycemia Protocol Last Admin: 02/06/19 05:35 Dose: 25 ml Dextrose (Glutose 15) 0 gm PO ONCE PRN; Protocol PRN Reason: Hypoglycemia Protocol Dimethicone (Proshield Plus Skin Protectant) 1 applic TOP Q8 PRN PRN Reason: derm Last Admin: 02/06/19 14:07 Dose: 1 applic Ergocalciferol (Drisdol 50,000 Intl Units Cap) 1 cap PO FR [facility] Fluticasone Propionate (Flonase) 2 spr PRIYA DAILY [facility] Last Admin: 02/07/19 09:50 Dose: 2 spr Glucagon (Glucagen Diagnostic Kit) 0 mg IM STAT PRN; Protocol PRN Reason: Hypoglycemia Protocol Iron Sucrose 100 mg/ Sodium (Chloride) 105 mls @ 105 mls/hr IVPB DAILY [facility] Last Admin: 02/07/19 09:52 Dose: 105 mls/hr Potassium Chloride/Dextrose/Sod Cl (Potassium Chl 20 Meq In D5-1/2ns) 1,000 mls @ 80 mls/hr IV .[id number] [facility] Stop: 02/08/19 20:21 Insulin Human Regular (Humulin R) 0 units SC ACHS [facility]; Protocol Last Admin: 02/07/19 17:35 Dose: 1 units Loratadine (Claritin) 10 mg PO DAILY [facility] Last Admin: 02/07/19 09:49 Dose: 10 mg Memantine (Namenda) 10 mg PO BID [facility] Last Admin: 02/07/19 17:37 Dose: 10 mg Mesalamine (Rowasa Enema) 4 gm RC HS [facility] Last Admin: 02/06/19 21:12 Dose: 4 gm Metoprolol Tartrate (Lopressor) 25 mg PO Q12 [facility] Last Admin: 02/07/19 09:51 Dose: 25 mg Sitagliptin Phosphate (Januvia) 25 mg PO DAILY [facility] Last Admin: 02/07/19 14:28 Dose: 25 mg Sucralfate (Carafate Oral Susp) 1 gm PO QID [facility] Last Admin: 02/07/19 17:34 Dose: 1 gm Tamsulosin HCl (Flomax) 0.4 mg PO DAILY [facility] Last Admin: 02/07/19 09:49 Dose: 0.4 mg - Labs Labs: 02/07/19 04:55 02/07/19 04:45 Assessment and Plan (1) GI bleed Status: Resolved - Assessment and Plan (Free Text) Assessment: Having less frequent bowel movements. Elliquis stopped 2 days ago. Receiving blood and vitals remain stable. Likely colonoscopy Monday
[2019-02-07] MEDS: Sucralfate 1 gm/10 ml Oral Susp UD PO SCH ×4 (09:49→22:08)
[2019-02-07] MEDS: Insulin Regular 100 units/ml SC SCH ×4 (12:39→22:24)
--- NOTE | 2019-02-07 13:48 | CP.PCM.PN ---
Subjective - Date & Time of Evaluation Date of Evaluation: 02/07/19 Time of Evaluation: 01:45 - Subjective Subjective: Pt is alert. Eating better today. Objective - Vital Signs/Intake and Output Vital Signs (last 24 hours): Temp Pulse Resp BP Pulse Ox 97.4 F L 61 18 112/63 93 L 02/07/19 11:53 02/07/19 11:53 02/07/19 11:53 02/07/19 11:53 02/07/19 11:53 - Medications Medications: Current Medications Acetaminophen (Tylenol 325mg Tab) 650 mg PO Q6 PRN PRN Reason: Pain, Mild (1-3) Amlodipine Besylate (Norvasc) 5 mg PO DAILY [facility] Last Admin: 02/07/19 09:51 Dose: 5 mg Atorvastatin Calcium (Lipitor) 40 mg PO DAILY [facility] Last Admin: 02/07/19 09:50 Dose: 40 mg Benzocaine/Menthol (Cepacol Sore Throat) 1 alysa PO Q3 PRN PRN Reason: Sore Throat Dextrose (Dextrose 50% Inj) 0 ml IV STAT PRN; Protocol PRN Reason: Hypoglycemia Protocol Last Admin: 02/06/19 05:35 Dose: 25 ml Dextrose (Glutose 15) 0 gm PO ONCE PRN; Protocol PRN Reason: Hypoglycemia Protocol Dimethicone (Proshield Plus Skin Protectant) 1 applic TOP Q8 PRN PRN Reason: derm Last Admin: 02/06/19 14:07 Dose: 1 applic Ergocalciferol (Drisdol 50,000 Intl Units Cap) 1 cap PO FR [facility] Fluticasone Propionate (Flonase) 2 spr PRIYA DAILY [facility] Last Admin: 02/07/19 09:50 Dose: 2 spr Glucagon (Glucagen Diagnostic Kit) 0 mg IM STAT PRN; Protocol PRN Reason: Hypoglycemia Protocol Iron Sucrose 100 mg/ Sodium (Chloride) 105 mls @ 105 mls/hr IVPB DAILY [facility] Last Admin: 02/07/19 09:52 Dose: 105 mls/hr Potassium Chloride/Dextrose/Sod Cl (Potassium Chl 20 Meq In D5-1/2ns) 1,000 mls @ 80 mls/hr IV .[id number] [facility] Stop: 02/07/19 15:11 Last Admin: 02/07/19 06:22 Dose: 80 mls/hr Insulin Human Regular (Humulin R) 0 units SC ACHS [facility]; Protocol Last Admin: 02/07/19 12:40 Dose: 2 units Loratadine (Claritin) 10 mg PO DAILY [facility] Last Admin: 02/07/19 09:49 Dose: 10 mg Memantine (Namenda) 10 mg PO BID [facility] Last Admin: 02/07/19 09:51 Dose: 10 mg Mesalamine (Rowasa Enema) 4 gm RC HS [facility] Last Admin: 02/06/19 21:12 Dose: 4 gm Metoprolol Tartrate (Lopressor) 25 mg PO Q12 [facility] Last Admin: 02/07/19 09:51 Dose: 25 mg Sitagliptin Phosphate (Januvia) 25 mg PO DAILY [facility] Sucralfate (Carafate Oral Susp) 1 gm PO QID [facility] Last Admin: 02/07/19 09:49 Dose: 1 gm Tamsulosin HCl (Flomax) 0.4 mg PO DAILY [facility] Last Admin: 02/07/19 09:49 Dose: 0.4 mg - Labs Labs: 02/07/19 04:55 02/07/19 04:45 - Constitutional Appears: No Acute Distress - Head Exam Head Exam: ATRAUMATIC, NORMOCEPHALIC - Eye Exam Additional comments: Conjunctiva pale. No icterus - ENT Exam ENT Exam: Mucous Membranes Moist - Neck Exam Neck Exam: Normal Inspection - Respiratory Exam Respiratory Exam: NORMAL BREATHING PATTERN Additional comments: Lungs clear - Cardiovascular Exam Cardiovascular Exam: REGULAR RHYTHM - GI/Abdominal Exam Additional comments: Distended but soft. No tenderness - Extremities Exam Additional comments: No edema Assessment and Plan - Assessment and Plan (Free Text) Assessment: CKD. Hx/o Lt nephrectomy Renal function is stable.Dehydration corrected. Hypernatremia also correctes Ulcerative colitis. Lower GI bleed. Hb is stable at this time BP is also better Plan: Continue with IVFs today Colonoscopy is planned.
--- NOTE | 2019-02-07 19:04 | CARD ---
APPROVED REPORT Date of service: 02/07/2019 EKG Measurement Heart [id number] <Conclusion> Sinus rhythm with premature atrial complexes Nonspecific ST-T changes Abnormal Electrocardiogram
[2019-02-08 05:26] LABS: HEMOGLOBIN 9.6 g/dL (12.0-18.0); MEAN CELL VOLUME 81.5 fl (80.0-94.0); MEAN CORPUSCULAR HEMOGLOBIN 26.7 pg (27.0-31.0); MEAN CORPUSCULAR HGB CONC 32.7 g/dL (33.0-37.0); RBC 3.58 Mil/uL (4.40-5.90); RED CELL DISTRIBUTION WIDTH 21.5 % (11.5-14.5); WHITE BLOOD COUNT 7.3 K/uL (4.8-10.8)
[2019-02-08 05:31] LABS: ALB/GLOB RATIO 0.6 (1.0-2.1); ALBUMIN 2.1 g/dL (3.5-5.0); CALCIUM 7.2 mg/dL (8.4-10.2)
--- NOTE | 2019-02-08 06:54 | CP.PCM.PN ---
<Jesus Collier - Last Filed: 02/08/19 09:32> Subjective - Date & Time of Evaluation Date of Evaluation: 02/08/19 Time of Evaluation: 06:54 - Subjective Subjective: Pt seen and examined at bedside with attending, Dr. Mathew. Greyson tony this morning. Pt denies acute overnight events. Denies CP/SOB or abdo pain Objective - Vital Signs/Intake and Output Vital Signs (last 24 hours): Temp Pulse Resp BP Pulse Ox 97.9 F 62 18 110/64 95 02/08/19 05:12 02/08/19 05:12 02/08/19 05:12 02/08/19 05:12 02/08/19 05:12 Intake and Output: 02/07/19 02/08/19 18:59 06:59 Intake Total 20 Balance 20 - Medications Medications: Current Medications Acetaminophen (Tylenol 325mg Tab) 650 mg PO Q6 PRN PRN Reason: Pain, Mild (1-3) Amlodipine Besylate (Norvasc) 5 mg PO DAILY [facility] Last Admin: 02/07/19 09:51 Dose: 5 mg Atorvastatin Calcium (Lipitor) 40 mg PO DAILY [facility] Last Admin: 02/07/19 09:50 Dose: 40 mg Benzocaine/Menthol (Cepacol Sore Throat) 1 alysa PO Q3 PRN PRN Reason: Sore Throat Dextrose (Dextrose 50% Inj) 0 ml IV STAT PRN; Protocol PRN Reason: Hypoglycemia Protocol Last Admin: 02/06/19 05:35 Dose: 25 ml Dextrose (Glutose 15) 0 gm PO ONCE PRN; Protocol PRN Reason: Hypoglycemia Protocol Dimethicone (Proshield Plus Skin Protectant) 1 applic TOP Q8 PRN PRN Reason: derm Last Admin: 02/06/19 14:07 Dose: 1 applic Ergocalciferol (Drisdol 50,000 Intl Units Cap) 1 cap PO FR [facility] Fluticasone Propionate (Flonase) 2 spr PRIYA DAILY [facility] Last Admin: 02/07/19 09:50 Dose: 2 spr Glucagon (Glucagen Diagnostic Kit) 0 mg IM STAT PRN; Protocol PRN Reason: Hypoglycemia Protocol Iron Sucrose 100 mg/ Sodium (Chloride) 105 mls @ 105 mls/hr IVPB DAILY [facility] Last Admin: 02/07/19 09:52 Dose: 105 mls/hr Potassium Chloride/Dextrose/Sod Cl (Potassium Chl 20 Meq In D5-1/2ns) 1,000 mls @ 80 mls/hr IV .[id number] [facility] Stop: 02/08/19 20:21 Last Admin: 02/07/19 22:30 Dose: 80 mls/hr Insulin Human Regular (Humulin R) 0 units SC ACHS [facility]; Protocol Last Admin: 02/07/19 22:24 Dose: Not Given Loratadine (Claritin) 10 mg PO DAILY [facility] Last Admin: 02/07/19 09:49 Dose: 10 mg Memantine (Namenda) 10 mg PO BID [facility] Last Admin: 02/07/19 17:37 Dose: 10 mg Mesalamine (Rowasa Enema) 4 gm RC HS [facility] Last Admin: 02/07/19 22:29 Dose: 4 gm Metoprolol Tartrate (Lopressor) 25 mg PO Q12 [facility] Last Admin: 02/07/19 22:25 Dose: 25 mg Sitagliptin Phosphate (Januvia) 25 mg PO DAILY [facility] Last Admin: 02/07/19 14:28 Dose: 25 mg Sucralfate (Carafate Oral Susp) 1 gm PO QID [facility] Last Admin: 02/07/19 22:08 Dose: 1 gm Tamsulosin HCl (Flomax) 0.4 mg PO DAILY [facility] Last Admin: 02/07/19 09:49 Dose: 0.4 mg - Labs Labs: 02/08/19 04:55 02/08/19 04:55 - Constitutional Appears: No Acute Distress - Eye Exam Eye Exam: EOMI - ENT Exam ENT Exam: Mucous Membranes Moist - Respiratory Exam Respiratory Exam: Clear to Ausculation Bilateral, Wheezes, NORMAL BREATHING PATTERN - Cardiovascular Exam Cardiovascular Exam: Irregular Rhythm, +S1, +S2 Additional comments: Possibly new onset afib - GI/Abdominal Exam GI & Abdominal Exam: Soft, Normal Bowel Sounds. absent: Tenderness - Neurological Exam Neurological Exam: Abnormal Gait (weakness requiring Pt), Alert, Awake Assessment and Plan (1) Ulcerative colitis, chronic Status: Chronic (2) CKD (chronic kidney disease) Status: Acute (3) Diabetes Status: Acute (4) Dementia Status: Acute (5) Gait instability Status: Acute (6) Anemia Status: Acute (7) HTN (hypertension) Status: Chronic (8) Afib Status: Acute - Assessment and Plan (Free Text) Assessment: 78 y/o male with PMH of Ulcerative colitis, HTN, Bladder Ca, Dementia, p rediabetes and CVA in 2007 recently admitted to [facility] for evaluation and treatment of acute bloody diarrhea with R abdominal pain. CT evidence of left sided colitis and treated with Cipro and Flagyl for colitis and his GI bleed eventually resolved, though diarrhea has been persistent and chronic (Cdiff negative). He was found to have low hemoglobin levels that remained stable between 8 - 9. Subsequently during this admission he suffered an acute ischemic stroke for he was evaluated by neurology and cardiology and treated with dual antiplatelet therapy. He had acute kidney injury and hypernatremia which was resolved with IV fluid hydrations under management of executive housekeeper. While in subacute rehab for rehabilitation, pt represented with bloody stools and dropping hemoglobin. Pt consented with for 2 units PRBC in preparation for Colonoscopy. Pt evaluated by Dr. Valero and team for dizziness and inability to fully engage in therapy. Admitted to tele. Plan: GI Bleed -GI Dr. Calvert: plan for colonoscopy possibly Monday. Pt agrees for golytely prior. -heart healthy -FOBT +; stool leukocytes: negative and fat: normal -ASA and plavix discontinued 3 days prior -Pt continues to experience bloody stools. -c/w sucralfate -Cardiology: Dr. Potts for cardiac clearance: colonoscopy.; keep hgb at 9; EKG. continue bb Anemia, chronic -H/H: 9.6/29.2 -Type and cross match 2 units; 1 unit ordered to be given to reach hgb goal of 9 -s/p IV venofer -pt to start po iron -monitor for bleed and hgb level and vitals UC, chronic -GI Dr. Calvert; started Cholestyramine and stool leukocytes and fat sent; plan for colonoscopy possibly monday -c/w Mesalamine Afib -new onset this morning -asx -on tele monitor -[id number] score: 6 --currently rate control with meoprolol 25 mg P12 --CI to asa due to active GI bleed -Cardiology Dr. Potts: further recs appreciated CKD -acute on chronic kidney disease with solitary R kidney. -Nephrology: Dr. Boone consulted: c/w IVF Hypokalemia -3.4; likely 2/2 GI loss/diarrhea -s/p K runs -c/w d5 1/2 ns with Kcl -f/u am labs HTN -controlled -c/w amlodipine, metoprolol DM -c/w januvia -accuchecks -heart healthy diet -hypoglycemia protocol in place Hx of Acute CVA -Neuro: Dr. Sanchez; f/u neuro OP -c/w atorvastatin Dementia -c/w memantine Esophagitis, acute -s/p Diflucan Rhinitis -c/w Fluticasone and loratidine DVT/wound prophylaxis -scd (active bleed) -c/w Proshield Gait instability -PT/OT eval/treat -fall precautions Case and plan d/w Dr. Priyanka Collier MD PGY-2 <Gatito Mathew - Last Filed: 02/13/19 12:46> Objective - Vital Signs/Intake and Output Vital Signs (last 24 hours): Temp Pulse Resp BP Pulse Ox 97.6 F 82 18 111/73 95 02/13/19 12:00 02/13/19 12:00 02/13/19 12:00 02/13/19 12:00 02/13/19 12:00 - Medications Medications: Current Medications Acetaminophen (Tylenol 325mg Tab) 650 mg PO Q6 PRN PRN Reason: Pain, Mild (1-3) Last Admin: 02/13/19 10:38 Dose: 650 mg Atorvastatin Calcium (Lipitor) 40 mg PO DAILY [facility] Last Admin: 02/13/19 10:05 Dose: 40 mg Benzocaine/Menthol (Cepacol Sore Throat) 1 alysa PO Q3 PRN PRN Reason: Sore Throat Dextrose (Dextrose 50% Inj) 0 ml IV STAT PRN; Protocol PRN Reason: Hypoglycemia Protocol Last Admin: 02/06/19 05:35 Dose: 25 ml Dextrose (Glutose 15) 0 gm PO ONCE PRN; Protocol PRN Reason: Hypoglycemia Protocol Dimethicone (Proshield Plus Skin Protectant) 1 applic TOP Q8 PRN PRN Reason: derm Last Admin: 02/13/19 10:04 Dose: 1 applic Ergocalciferol (Drisdol 50,000 Intl Units Cap) 1 cap PO FR [facility]NY Last Admin: 02/08/19 16:12 Dose: 1 cap Fluticasone Propionate (Flonase) 2 spr PRIYA DAILY [facility] Last Admin: 02/13/19 10:07 Dose: 2 spr Glucagon (Glucagen Diagnostic Kit) 0 mg IM STAT PRN; Protocol PRN Reason: Hypoglycemia Protocol Iron Sucrose 100 mg/ Sodium (Chloride) 105 mls @ 105 mls/hr IVPB DAILY [facility] Last Admin: 02/12/19 12:07 Dose: 105 mls/hr Potassium Chloride/Dextrose/Sod Cl (Potassium Chl 20 Meq In D5-1/2ns) 1,000 mls @ 80 mls/hr IV .[id number] COUNT [facility]ES [facility] Stop: 02/14/19 09:54 Insulin Human Regular (Humulin R) 0 units SC ACHS COUNT [facility]; Protocol Last Admin: 02/13/19 08:07 Dose: Not Given Memantine (Namenda) 10 mg PO BID COUNT [facility] Last Admin: 02/13/19 10:05 Dose: 10 mg Mesalamine (Rowasa Enema) 4 gm RC HS COUNT [facility] Last Admin: 02/12/19 21:17 Dose: Not Given Methylprednisolone (Solu-Medrol) 20 mg IVP Q12H COUNT [facility] Last Admin: 02/13/19 10:05 Dose: 20 mg Metoprolol Succinate (Toprol Xl) 25 mg PO Q12 [facility] Last Admin: 02/13/19 10:09 Dose: Not Given Sennosides (Senokot Tab) 17.2 mg PO HS COUNT [facility]CLUD[facility] Last Admin: 02/12/19 21:18 Dose: 17.2 mg Sitagliptin Phosphate (Januvia) 25 mg PO DAILY [facility] Last Admin: 02/13/19 10:05 Dose: 25 mg Sucralfate (Carafate Oral Susp) 1 gm PO QID COUNT [facility] Last Admin: 02/13/19 09:33 Dose: 1 gm Tamsulosin HCl (Flomax) 0.4 mg PO DAILY [facility] Last Admin: 02/13/19 10:07 Dose: 0.4 mg - Labs Labs: 02/12/19 06:05 02/12/19 06:05 Assessment and Plan - Assessment and Plan (Free Text) Plan: Patient was personally seen and examined by me in rounds with residents. Available labs and diagnostic data reviewed. Case, Patient's condition and management plan discussed with residents in rounds. Agree with resident's progress note. Plan: As ordered.
[2019-02-08] MEDS: Insulin Regular 100 units/ml SC SCH ×4 (07:02→22:00)
--- NOTE | 2019-02-08 09:00 | CARD ---
APPROVED REPORT Date of service: 02/08/2019 EKG Measurement Heart [id number] <Conclusion> Atrial fibrillation with premature ventricular or aberrantly conducted complexes Nonspecific ST and T wave abnormality Abnormal ECG
[2019-02-08] MEDS: Potassium Ch 20mEq in D5-1/2NS 1,000 ML IV SCH (09:10)
[2019-02-08] MEDS: Sucralfate 1 gm/10 ml Oral Susp UD PO SCH ×4 (09:12→21:11)
--- NOTE | 2019-02-08 09:30 | CP.PCM.PN ---
<Ian Tiwari D - Last Filed: 02/08/19 09:30> Subjective - Date & Time of Evaluation Date of Evaluation: 02/08/19 Time of Evaluation: 09:28 - Subjective Subjective: GI NOTE FOR DR. CLARKE 78M seen and examined at bedside. Patient tolerating diet, continues to have dark stools per nursing nurses overnight. s/p 1PRBC transfusion yesterday evening. Objective - Vital Signs/Intake and Output Vital Signs (last 24 hours): Temp Pulse Resp BP Pulse Ox 97.7 F 93 H 18 101/71 94 L 02/08/19 07:50 02/08/19 09:10 02/08/19 07:50 02/08/19 09:10 02/08/19 07:50 Intake and Output: 02/08/19 02/08/19 06:59 18:59 Intake Total 335 Balance 335 - Medications Medications: Current Medications Acetaminophen (Tylenol 325mg Tab) 650 mg PO Q6 PRN PRN Reason: Pain, Mild (1-3) Amlodipine Besylate (Norvasc) 5 mg PO DAILY [facility] Last Admin: 02/08/19 09:10 Dose: 5 mg Atorvastatin Calcium (Lipitor) 40 mg PO DAILY [facility] Last Admin: 02/08/19 09:09 Dose: 40 mg Benzocaine/Menthol (Cepacol Sore Throat) 1 alysa PO Q3 PRN PRN Reason: Sore Throat Dextrose (Dextrose 50% Inj) 0 ml IV STAT PRN; Protocol PRN Reason: Hypoglycemia Protocol Last Admin: 02/06/19 05:35 Dose: 25 ml Dextrose (Glutose 15) 0 gm PO ONCE PRN; Protocol PRN Reason: Hypoglycemia Protocol Dimethicone (Proshield Plus Skin Protectant) 1 applic TOP Q8 PRN PRN Reason: derm Last Admin: 02/06/19 14:07 Dose: 1 applic Ergocalciferol (Drisdol 50,000 Intl Units Cap) 1 cap PO FR [facility] Fluticasone Propionate (Flonase) 2 spr PRIYA DAILY [facility] Last Admin: 02/08/19 09:09 Dose: 2 spr Glucagon (Glucagen Diagnostic Kit) 0 mg IM STAT PRN; Protocol PRN Reason: Hypoglycemia Protocol Iron Sucrose 100 mg/ Sodium (Chloride) 105 mls @ 105 mls/hr IVPB DAILY [facility] Last Admin: 02/08/19 09:11 Dose: 105 mls/hr Potassium Chloride/Dextrose/Sod Cl (Potassium Chl 20 Meq In D5-1/2ns) 1,000 mls @ 80 mls/hr IV .[id number] [facility] Stop: 02/08/19 20:21 Last Admin: 02/08/19 09:10 Dose: 80 mls/hr Insulin Human Regular (Humulin R) 0 units SC ACHS [facility]; Protocol Last Admin: 02/08/19 07:02 Dose: Not Given Loratadine (Claritin) 10 mg PO DAILY [facility] Last Admin: 02/08/19 09:09 Dose: 10 mg Memantine (Namenda) 10 mg PO BID [facility] Last Admin: 02/08/19 09:10 Dose: 10 mg Mesalamine (Rowasa Enema) 4 gm RC HS [facility] Last Admin: 02/07/19 22:29 Dose: 4 gm Methylprednisolone (Medrol) 20 mg PO BID [facility] Metoprolol Tartrate (Lopressor) 25 mg PO Q12 [facility] Last Admin: 02/08/19 09:09 Dose: 25 mg Sitagliptin Phosphate (Januvia) 25 mg PO DAILY [facility] Last Admin: 02/08/19 09:09 Dose: 25 mg Sucralfate (Carafate Oral Susp) 1 gm PO QID [facility] Last Admin: 02/08/19 09:12 Dose: 1 gm Tamsulosin HCl (Flomax) 0.4 mg PO DAILY [facility] Last Admin: 02/08/19 09:09 Dose: 0.4 mg - Labs Labs: 02/08/19 04:55 02/08/19 04:55 - Constitutional Appears: Non-toxic, No Acute Distress - Respiratory Exam Respiratory Exam: Clear to Ausculation Bilateral, NORMAL BREATHING PATTERN - Cardiovascular Exam Cardiovascular Exam: REGULAR RHYTHM, +S1, +S2 - GI/Abdominal Exam GI & Abdominal Exam: Soft. absent: Distended, Firm, Guarding, Rigid, Tenderness, Rebound - Neurological Exam Neurological Exam: Alert, Awake Assessment and Plan - Assessment and Plan (Free Text) Assessment: 78M with hx of UC now with anemia likely 2/2 to GI bleed Plan: - s/p 1prbc - monitor H&H - Plan for colonoscopy Monday per prior note Further recs discuss with Dr. Enrike Tiwari, PGY3 <Austin Clarke - Last Filed: 02/08/19 14:42> Objective - Vital Signs/Intake and Output Vital Signs (last 24 hours): Temp Pulse Resp BP Pulse Ox 98.0 F 75 18 99/68 L 98 02/08/19 12:00 02/08/19 12:00 02/08/19 12:00 02/08/19 12:00 02/08/19 12:00 Intake and Output: 02/08/19 02/08/19 06:59 18:59 Intake Total 335 Balance 335 - Medications Medications: Current Medications Acetaminophen (Tylenol 325mg Tab) 650 mg PO Q6 PRN PRN Reason: Pain, Mild (1-3) Amlodipine Besylate (Norvasc) 5 mg PO DAILY [facility] Last Admin: 02/08/19 09:10 Dose: 5 mg Atorvastatin Calcium (Lipitor) 40 mg PO DAILY [facility] Last Admin: 02/08/19 09:09 Dose: 40 mg Benzocaine/Menthol (Cepacol Sore Throat) 1 alysa PO Q3 PRN PRN Reason: Sore Throat Dextrose (Dextrose 50% Inj) 0 ml IV STAT PRN; Protocol PRN Reason: Hypoglycemia Protocol Last Admin: 02/06/19 05:35 Dose: 25 ml Dextrose (Glutose 15) 0 gm PO ONCE PRN; Protocol PRN Reason: Hypoglycemia Protocol Dimethicone (Proshield Plus Skin Protectant) 1 applic TOP Q8 PRN PRN Reason: derm Last Admin: 02/06/19 14:07 Dose: 1 applic Ergocalciferol (Drisdol 50,000 Intl Units Cap) 1 cap PO FR [facility] Fluticasone Propionate (Flonase) 2 spr PRIYA DAILY [facility] Last Admin: 02/08/19 09:09 Dose: 2 spr Glucagon (Glucagen Diagnostic Kit) 0 mg IM STAT PRN; Protocol PRN Reason: Hypoglycemia Protocol Iron Sucrose 100 mg/ Sodium (Chloride) 105 mls @ 105 mls/hr IVPB DAILY [facility] Last Admin: 02/08/19 09:11 Dose: 105 mls/hr Potassium Chloride/Dextrose/Sod Cl (Potassium Chl 20 Meq In D5-1/2ns) 1,000 mls @ 80 mls/hr IV .[id number] [facility] Stop: 02/08/19 20:21 Last Admin: 02/08/19 09:10 Dose: 80 mls/hr Insulin Human Regular (Humulin R) 0 units SC ACHS [facility]; Protocol Last Admin: 02/08/19 12:55 Dose: Not Given Loratadine (Claritin) 10 mg PO DAILY [facility] Last Admin: 02/08/19 09:09 Dose: 10 mg Memantine (Namenda) 10 mg PO BID [facility] Last Admin: 02/08/19 09:10 Dose: 10 mg Mesalamine (Rowasa Enema) 4 gm RC HS [facility] Last Admin: 02/07/19 22:29 Dose: 4 gm Methylprednisolone (Medrol) 20 mg PO BID [facility] Last Admin: 02/08/19 12:55 Dose: 20 mg Metoprolol Tartrate (Lopressor) 25 mg PO Q12 [facility] Last Admin: 02/08/19 09:09 Dose: 25 mg Sitagliptin Phosphate (Januvia) 25 mg PO DAILY [facility] Last Admin: 02/08/19 09:09 Dose: 25 mg Sucralfate (Carafate Oral Susp) 1 gm PO QID [facility] Last Admin: 02/08/19 13:00 Dose: 1 gm Tamsulosin HCl (Flomax) 0.4 mg PO DAILY [facility] Last Admin: 02/08/19 09:09 Dose: 0.4 mg - Labs Labs: 02/08/19 04:55 02/08/19 04:55 Assessment and Plan (1) GI bleed Status: Resolved - Assessment and Plan (Free Text) Assessment: Patient with an episode of dark stool with blood earlier. Po steroids started. Hgb improved post transfusion.
[2019-02-08] MEDS ORDERED: Potassium Chloride 20 mEq ER Tab PO ONE (09:38)
--- NOTE | 2019-02-08 14:41 | CP.PCM.PN ---
Subjective - Date & Time of Evaluation Date of Evaluation: 02/08/19 Time of Evaluation: 01:45 - Subjective Subjective: Alert & comfortable in bed. Still having bloody BMs. Objective - Vital Signs/Intake and Output Vital Signs (last 24 hours): Temp Pulse Resp BP Pulse Ox 98.0 F 75 18 99/68 L 98 02/08/19 12:00 02/08/19 12:00 02/08/19 12:00 02/08/19 12:00 02/08/19 12:00 Intake and Output: 02/08/19 02/08/19 06:59 18:59 Intake Total 335 Balance 335 - Medications Medications: Current Medications Acetaminophen (Tylenol 325mg Tab) 650 mg PO Q6 PRN PRN Reason: Pain, Mild (1-3) Amlodipine Besylate (Norvasc) 5 mg PO DAILY [facility] Last Admin: 02/08/19 09:10 Dose: 5 mg Atorvastatin Calcium (Lipitor) 40 mg PO DAILY [facility] Last Admin: 02/08/19 09:09 Dose: 40 mg Benzocaine/Menthol (Cepacol Sore Throat) 1 alysa PO Q3 PRN PRN Reason: Sore Throat Dextrose (Dextrose 50% Inj) 0 ml IV STAT PRN; Protocol PRN Reason: Hypoglycemia Protocol Last Admin: 02/06/19 05:35 Dose: 25 ml Dextrose (Glutose 15) 0 gm PO ONCE PRN; Protocol PRN Reason: Hypoglycemia Protocol Dimethicone (Proshield Plus Skin Protectant) 1 applic TOP Q8 PRN PRN Reason: derm Last Admin: 02/06/19 14:07 Dose: 1 applic Ergocalciferol (Drisdol 50,000 Intl Units Cap) 1 cap PO FR [facility] Fluticasone Propionate (Flonase) 2 spr PRIYA DAILY [facility] Last Admin: 02/08/19 09:09 Dose: 2 spr Glucagon (Glucagen Diagnostic Kit) 0 mg IM STAT PRN; Protocol PRN Reason: Hypoglycemia Protocol Iron Sucrose 100 mg/ Sodium (Chloride) 105 mls @ 105 mls/hr IVPB DAILY [facility] Last Admin: 02/08/19 09:11 Dose: 105 mls/hr Potassium Chloride/Dextrose/Sod Cl (Potassium Chl 20 Meq In D5-1/2ns) 1,000 mls @ 80 mls/hr IV .[id number] [facility] Stop: 02/08/19 20:21 Last Admin: 02/08/19 09:10 Dose: 80 mls/hr Insulin Human Regular (Humulin R) 0 units SC ACHS [facility]; Protocol Last Admin: 02/08/19 12:55 Dose: Not Given Loratadine (Claritin) 10 mg PO DAILY [facility] Last Admin: 02/08/19 09:09 Dose: 10 mg Memantine (Namenda) 10 mg PO BID [facility] Last Admin: 02/08/19 09:10 Dose: 10 mg Mesalamine (Rowasa Enema) 4 gm RC HS [facility] Last Admin: 02/07/19 22:29 Dose: 4 gm Methylprednisolone (Medrol) 20 mg PO BID [facility] Last Admin: 02/08/19 12:55 Dose: 20 mg Metoprolol Tartrate (Lopressor) 25 mg PO Q12 [facility] Last Admin: 02/08/19 09:09 Dose: 25 mg Sitagliptin Phosphate (Januvia) 25 mg PO DAILY [facility] Last Admin: 02/08/19 09:09 Dose: 25 mg Sucralfate (Carafate Oral Susp) 1 gm PO QID [facility] Last Admin: 02/08/19 13:00 Dose: 1 gm Tamsulosin HCl (Flomax) 0.4 mg PO DAILY [facility] Last Admin: 02/08/19 09:09 Dose: 0.4 mg - Labs Labs: 02/08/19 04:55 02/08/19 04:55 - Constitutional Appears: No Acute Distress - Head Exam Head Exam: ATRAUMATIC, NORMOCEPHALIC - Eye Exam Additional comments: Conjunctiva pale. - ENT Exam ENT Exam: Mucous Membranes Moist - Respiratory Exam Respiratory Exam: NORMAL BREATHING PATTERN Additional comments: Lungs clear - Cardiovascular Exam Cardiovascular Exam: REGULAR RHYTHM - GI/Abdominal Exam GI & Abdominal Exam: Soft Additional comments: Mild diffue tenderness - Extremities Exam Additional comments: No edema Assessment and Plan - Assessment and Plan (Free Text) Assessment: Stage 111 kidney dis, Renal function is stable GI bleed, Hx/o Ulcerative cplitis Anemia Hb is stable Plan: Monitor BP & renal function Continue with IVFs
--- NOTE | 2019-02-08 15:13 | CP.PCM.PN ---
Subjective - Date & Time of Evaluation Date of Evaluation: 02/08/19 Time of Evaluation: 15:11 - Subjective Subjective: PT WITH AFIB STARTING AT 2AM TODAY. HE DENIES ANY DIZZINESS OR PALP. NO CP. Objective - Vital Signs/Intake and Output Vital Signs (last 24 hours): Temp Pulse Resp BP Pulse Ox 98.0 F 75 18 99/68 L 98 02/08/19 12:00 02/08/19 12:00 02/08/19 12:00 02/08/19 12:00 02/08/19 12:00 Intake and Output: 02/08/19 02/08/19 06:59 18:59 Intake Total 335 Balance 335 - Medications Medications: Current Medications Acetaminophen (Tylenol 325mg Tab) 650 mg PO Q6 PRN PRN Reason: Pain, Mild (1-3) Atorvastatin Calcium (Lipitor) 40 mg PO DAILY [facility] Last Admin: 02/08/19 09:09 Dose: 40 mg Benzocaine/Menthol (Cepacol Sore Throat) 1 alysa PO Q3 PRN PRN Reason: Sore Throat Dextrose (Dextrose 50% Inj) 0 ml IV STAT PRN; Protocol PRN Reason: Hypoglycemia Protocol Last Admin: 02/06/19 05:35 Dose: 25 ml Dextrose (Glutose 15) 0 gm PO ONCE PRN; Protocol PRN Reason: Hypoglycemia Protocol Dimethicone (Proshield Plus Skin Protectant) 1 applic TOP Q8 PRN PRN Reason: derm Last Admin: 02/06/19 14:07 Dose: 1 applic Ergocalciferol (Drisdol 50,000 Intl Units Cap) 1 cap PO FR [facility] Fluticasone Propionate (Flonase) 2 spr PRIYA DAILY [facility] Last Admin: 02/08/19 09:09 Dose: 2 spr Glucagon (Glucagen Diagnostic Kit) 0 mg IM STAT PRN; Protocol PRN Reason: Hypoglycemia Protocol Iron Sucrose 100 mg/ Sodium (Chloride) 105 mls @ 105 mls/hr IVPB DAILY [facility] Last Admin: 02/08/19 09:11 Dose: 105 mls/hr Potassium Chloride/Dextrose/Sod Cl (Potassium Chl 20 Meq In D5-1/2ns) 1,000 mls @ 80 mls/hr IV .[id number] [facility] Stop: 02/08/19 20:21 Last Admin: 02/08/19 09:10 Dose: 80 mls/hr Amiodarone HCl 150 mg/ (Dextrose) 103 mls @ 618 mls/hr IVPB ONCE ONE; Protocol Stop: 02/08/19 15:19 Amiodarone HCl 900 mg/ (Dextrose) 518 mls @ 34.53 mls/hr IVPB .Q15H1M [facility]; Protocol Insulin Human Regular (Humulin R) 0 units SC ACHS [facility]; Protocol Last Admin: 02/08/19 12:55 Dose: Not Given Loratadine (Claritin) 10 mg PO DAILY [facility] Last Admin: 02/08/19 09:09 Dose: 10 mg Memantine (Namenda) 10 mg PO BID [facility] Last Admin: 02/08/19 09:10 Dose: 10 mg Mesalamine (Rowasa Enema) 4 gm RC HS [facility] Last Admin: 02/07/19 22:29 Dose: 4 gm Methylprednisolone (Medrol) 20 mg PO BID [facility] Last Admin: 02/08/19 12:55 Dose: 20 mg Metoprolol Tartrate (Lopressor) 25 mg PO Q12 [facility] Last Admin: 02/08/19 09:09 Dose: 25 mg Sitagliptin Phosphate (Januvia) 25 mg PO DAILY [facility] Last Admin: 02/08/19 09:09 Dose: 25 mg Sucralfate (Carafate Oral Susp) 1 gm PO QID [facility] Last Admin: 02/08/19 13:00 Dose: 1 gm Tamsulosin HCl (Flomax) 0.4 mg PO DAILY [facility] Last Admin: 02/08/19 09:09 Dose: 0.4 mg - Labs Labs: 02/08/19 04:55 02/08/19 04:55 - Constitutional Appears: Well - Head Exam Head Exam: ATRAUMATIC, NORMAL INSPECTION, NORMOCEPHALIC - Eye Exam Eye Exam: EOMI, Normal appearance, PERRL. absent: Conjunctival injection, Nystagmus, Periorbital swelling, Periorbital tenderness, Scleral icterus Pupil Exam: NORMAL ACCOMODATION, PERRL - ENT Exam ENT Exam: Mucous Membranes Moist, Normal Exam. absent: Mucous Membranes Dry, Normal External Ear Exam, Normal Oropharynx, TM's Normal Bilaterally - Neck Exam Neck Exam: Full ROM, Normal Inspection. absent: Lymphadenopathy, Meningismus, Tenderness, Thyromegaly - Respiratory Exam Respiratory Exam: Clear to Ausculation Bilateral, NORMAL BREATHING PATTERN. absent: Accessory Muscle Use, Chest Wall Tenderness, Decreased Breath Sounds, Prolonged Expiratory Phase, Rales, Rhonchi, Wheezes, Respiratory Distress, Stridor - Cardiovascular Exam Cardiovascular Exam: Irregular Rhythm, +S1, +S2, Murmur. absent: Bradycardia, Tachycardia, Clicks, Diastolic murmur, Gallop, REGULAR RHYTHM, JVD, RRR, Rubs, +S4 - GI/Abdominal Exam GI & Abdominal Exam: Soft, Normal Bowel Sounds. absent: Bruit, Distended, Firm, Guarding, Rigid, Tenderness, Diminished Bowel Sounds, Hernia, Hyperactive Bowel Sounds, Hypoactive Bowel Sounds, Organomegaly, Pulsatile Mass, Rebound, Mass - Rectal Exam Rectal Exam: Deferred - Extremities Exam Extremities Exam: Full ROM, Normal Capillary Refill, Pedal Edema. absent: Calf Tenderness, Joint Swelling, Normal Inspection, Tenderness - Back Exam Back Exam: NORMAL INSPECTION. absent: CVA tenderness (L), CVA tenderness (R), Full ROM, muscle spasm, paraspinal tenderness, rash noted, tenderness, vertebral tenderness - Neurological Exam Neurological Exam: Alert, Awake, CN II-XII Intact, Normal Gait, Oriented x3. absent: Abnormal Gait, Altered, Motor Sensory Deficit, Reflexes Normal - Psychiatric Exam Psychiatric exam: Normal Affect, Normal Mood. absent: Agitated, Anxious, Depressed, Flat Affect, Homicidal Ideation, Manic, Suicidal Ideation - Skin Skin Exam: Dry, Intact, Normal Color, Warm. absent: Abrasion, Cyanosis, Diaphoretic, Erythema, Mottled, Pallor, Pallor, Petechiae, Rash, Urticaria, Vesicles Assessment and Plan (1) New onset a-fib Assessment & Plan: AFIB STARTED LESS THAN 48 HOURS AGO. NO PRIOR DOCUMENTED AFIB. PT IS NOT CANDIDATE FOR ANTICOAG. THEREFORE WOULD ATTEMPT CHEMICAL CARDIOVERSION. IF SUCCESSFUL PRIOR TO 48 HOURS OF AFIB THEN NO ANTICOAG WARRANTED. Status: Acute (2) Pre-operative cardiovascular examination Status: Acute (3) Anemia Status: Acute (4) GI bleed Status: Resolved (5) Ischemic stroke Status: Resolved (6) HTN (hypertension) Status: Chronic (7) High triglycerides Status: Chronic (8) Ulcerative colitis, chronic Status: Chronic - Assessment and Plan (Free Text) Plan: \\NO ANTICOAG AT THIS TIME. 55 MIN TOTAL CARE TIME.
--- NOTE | 2019-02-08 15:14 | CP.PCM.PN ---
Subjective - Date & Time of Evaluation Date of Evaluation: 02/07/19 Time of Evaluation: 16:00 - Subjective Subjective: NOTE FOR 02/07/19 VISIT PT WITHOUT COMPLAINTS. GIB PERSISTS. PT FOR COLONOSCOPY IN NEAR FUTURE. Objective - Vital Signs/Intake and Output Vital Signs (last 24 hours): Temp Pulse Resp BP Pulse Ox 98.0 F 75 18 99/68 L 98 02/08/19 12:00 02/08/19 12:00 02/08/19 12:00 02/08/19 12:00 02/08/19 12:00 Intake and Output: 02/08/19 02/08/19 06:59 18:59 Intake Total 335 Balance 335 - Medications Medications: Current Medications Acetaminophen (Tylenol 325mg Tab) 650 mg PO Q6 PRN PRN Reason: Pain, Mild (1-3) Atorvastatin Calcium (Lipitor) 40 mg PO DAILY [facility] Last Admin: 02/08/19 09:09 Dose: 40 mg Benzocaine/Menthol (Cepacol Sore Throat) 1 alysa PO Q3 PRN PRN Reason: Sore Throat Dextrose (Dextrose 50% Inj) 0 ml IV STAT PRN; Protocol PRN Reason: Hypoglycemia Protocol Last Admin: 02/06/19 05:35 Dose: 25 ml Dextrose (Glutose 15) 0 gm PO ONCE PRN; Protocol PRN Reason: Hypoglycemia Protocol Dimethicone (Proshield Plus Skin Protectant) 1 applic TOP Q8 PRN PRN Reason: derm Last Admin: 02/06/19 14:07 Dose: 1 applic Ergocalciferol (Drisdol 50,000 Intl Units Cap) 1 cap PO FR [facility] Fluticasone Propionate (Flonase) 2 spr PRIYA DAILY [facility] Last Admin: 02/08/19 09:09 Dose: 2 spr Glucagon (Glucagen Diagnostic Kit) 0 mg IM STAT PRN; Protocol PRN Reason: Hypoglycemia Protocol Iron Sucrose 100 mg/ Sodium (Chloride) 105 mls @ 105 mls/hr IVPB DAILY [facility] Last Admin: 02/08/19 09:11 Dose: 105 mls/hr Potassium Chloride/Dextrose/Sod Cl (Potassium Chl 20 Meq In D5-1/2ns) 1,000 mls @ 80 mls/hr IV .[id number] [facility] Stop: 02/08/19 20:21 Last Admin: 02/08/19 09:10 Dose: 80 mls/hr Amiodarone HCl 150 mg/ (Dextrose) 103 mls @ 618 mls/hr IVPB ONCE ONE; Protocol Stop: 02/08/19 15:19 Amiodarone HCl 450 mg/ Sodium (Chloride) 259 mls @ 34.53 mls/hr IVPB .Q7H31M S ; Protocol Insulin Human Regular (Humulin R) 0 units SC ACHS [facility]; Protocol Last Admin: 02/08/19 12:55 Dose: Not Given Loratadine (Claritin) 10 mg PO DAILY [facility] Last Admin: 02/08/19 09:09 Dose: 10 mg Memantine (Namenda) 10 mg PO BID [facility] Last Admin: 02/08/19 09:10 Dose: 10 mg Mesalamine (Rowasa Enema) 4 gm RC HS [facility] Last Admin: 02/07/19 22:29 Dose: 4 gm Methylprednisolone (Medrol) 20 mg PO BID [facility] Last Admin: 02/08/19 12:55 Dose: 20 mg Metoprolol Tartrate (Lopressor) 25 mg PO Q12 [facility] Last Admin: 02/08/19 09:09 Dose: 25 mg Sitagliptin Phosphate (Januvia) 25 mg PO DAILY [facility] Last Admin: 02/08/19 09:09 Dose: 25 mg Sucralfate (Carafate Oral Susp) 1 gm PO QID [facility] Last Admin: 02/08/19 13:00 Dose: 1 gm Tamsulosin HCl (Flomax) 0.4 mg PO DAILY [facility] Last Admin: 02/08/19 09:09 Dose: 0.4 mg - Labs Labs: 02/08/19 04:55 02/08/19 04:55 Assessment and Plan (1) Pre-operative cardiovascular examination Status: Acute (2) Anemia Status: Acute (3) GI bleed Status: Resolved (4) Ischemic stroke Status: Resolved (5) HTN (hypertension) Status: Chronic (6) High triglycerides Status: Chronic (7) Ulcerative colitis, chronic Status: Chronic - Assessment and Plan (Free Text) Plan: ALL LABS REVIEWED PRBC NECESSARY TO KEEP HB ABOVE 9. AWAIT COLONOSCOPY CONTINUE TELE WILL FOLLOW 45MIN TOTAL CARE TIME.
[2019-02-08] MEDS: Ergocalciferol 50,000 Intl Units Cap PO SCH (16:12)
[2019-02-08] MEDS: Amiodarone 450 MG in Sodium Chloride 0.9% 250 ML IVPB SCH ×2 (16:22→22:54)
[2019-02-09 02:47] LABS: SQUAMOUS EPITHIAL < 1 /hpf (0-5); URINE BACTERIA MANY (<OCC); URINE BILIRUBIN NEGATIVE (NEGATIVE); URINE BLOOD SMALL (NEGATIVE); URINE CLARITY CLOUDY (Clear); URINE COLOR YELLOW (YELLOW); URINE GLUCOSE (UA) NEG (NEGATIVE); URINE LEUKOCYTE ESTERASE NEG Leu/uL (Negative); URINE PROTEIN NEGATIVE (NEGATIVE); URINE UROBILINOGEN 0.2-1.0 mg/dL (0.2-1.0)
[2019-02-09 03:15] LABS: CREATININE, RANDOM URINE 79.7 mg/dL
[2019-02-09] MEDS: Amiodarone 450 MG in Sodium Chloride 0.9% 250 ML IVPB SCH (06:11)
[2019-02-09 06:23] LABS: HEMOGLOBIN 9.8 g/dL (12.0-18.0); MEAN CELL VOLUME 83.1 fl (80.0-94.0); MEAN CORPUSCULAR HEMOGLOBIN 26.1 pg (27.0-31.0); MEAN CORPUSCULAR HGB CONC 31.4 g/dL (33.0-37.0); RBC 3.76 Mil/uL (4.40-5.90); RED CELL DISTRIBUTION WIDTH 21.6 % (11.5-14.5)
[2019-02-09 06:49] LABS: ALB/GLOB RATIO 0.7 (1.0-2.1); ALBUMIN 2.3 g/dL (3.5-5.0); CALCIUM 7.4 mg/dL (8.4-10.2)
[2019-02-09] MEDS: Proshield Plus GEL TOP PRN ×2 (08:47→21:36)
[2019-02-09] MEDS: Sucralfate 1 gm/10 ml Oral Susp UD PO SCH ×4 (08:47→21:31)
[2019-02-09] MEDS: Insulin Regular 100 units/ml SC SCH ×3 (09:00→17:15)
--- NOTE | 2019-02-09 12:31 | CP.PCM.PN ---
Subjective - Date & Time of Evaluation Date of Evaluation: 02/09/19 Time of Evaluation: 12:00 - Subjective Subjective: Appears comfortable. Feels better Objective - Vital Signs/Intake and Output Vital Signs (last 24 hours): Temp Pulse Resp BP Pulse Ox 97.6 F 90 20 115/78 99 02/09/19 08:09 02/09/19 09:00 02/09/19 08:09 02/09/19 08:48 02/09/19 08:09 - Medications Medications: Current Medications Acetaminophen (Tylenol 325mg Tab) 650 mg PO Q6 PRN PRN Reason: Pain, Mild (1-3) Atorvastatin Calcium (Lipitor) 40 mg PO DAILY [facility] Last Admin: 02/09/19 08:51 Dose: 40 mg Benzocaine/Menthol (Cepacol Sore Throat) 1 alysa PO Q3 PRN PRN Reason: Sore Throat Dextrose (Dextrose 50% Inj) 0 ml IV STAT PRN; Protocol PRN Reason: Hypoglycemia Protocol Last Admin: 02/06/19 05:35 Dose: 25 ml Dextrose (Glutose 15) 0 gm PO ONCE PRN; Protocol PRN Reason: Hypoglycemia Protocol Dimethicone (Proshield Plus Skin Protectant) 1 applic TOP Q8 PRN PRN Reason: derm Last Admin: 02/09/19 08:47 Dose: 1 applic Ergocalciferol (Drisdol 50,000 Intl Units Cap) 1 cap PO FR [facility] Last Admin: 02/08/19 16:12 Dose: 1 cap Fluticasone Propionate (Flonase) 2 spr PRIYA DAILY [facility] Last Admin: 02/09/19 08:51 Dose: 2 spr Glucagon (Glucagen Diagnostic Kit) 0 mg IM STAT PRN; Protocol PRN Reason: Hypoglycemia Protocol Iron Sucrose 100 mg/ Sodium (Chloride) 105 mls @ 105 mls/hr IVPB DAILY [facility] Last Admin: 02/09/19 08:52 Dose: 105 mls/hr Amiodarone HCl 450 mg/ Sodium (Chloride) 259 mls @ 34.53 mls/hr IVPB .Q7H31M [facility]; Protocol Last Admin: 02/09/19 06:11 Dose: 17.27 mls/hr Insulin Human Regular (Humulin R) 0 units SC ACHS [facility]; Protocol Last Admin: 02/08/19 22:00 Dose: Not Given Loratadine (Claritin) 10 mg PO DAILY [facility] Last Admin: 02/09/19 08:50 Dose: 10 mg Memantine (Namenda) 10 mg PO BID [facility] Last Admin: 02/09/19 08:48 Dose: 10 mg Mesalamine (Rowasa Enema) 4 gm RC HS [facility] Last Admin: 02/08/19 21:21 Dose: 4 gm Methylprednisolone (Medrol) 20 mg PO BID [facility] Last Admin: 02/09/19 08:47 Dose: 20 mg Metoprolol Tartrate (Lopressor) 25 mg PO Q12 [facility] Last Admin: 02/09/19 08:48 Dose: 25 mg Sitagliptin Phosphate (Januvia) 25 mg PO DAILY [facility] Last Admin: 02/09/19 08:48 Dose: 25 mg Sucralfate (Carafate Oral Susp) 1 gm PO QID [facility] Last Admin: 02/09/19 08:47 Dose: 1 gm Tamsulosin HCl (Flomax) 0.4 mg PO DAILY [facility] Last Admin: 02/09/19 08:50 Dose: 0.4 mg - Labs Labs: 02/09/19 04:30 02/09/19 04:30 - Constitutional Appears: No Acute Distress - Head Exam Head Exam: ATRAUMATIC, NORMOCEPHALIC - Eye Exam Eye Exam: Normal appearance - ENT Exam ENT Exam: Mucous Membranes Moist - Neck Exam Additional comments: No jugular venous distension - Respiratory Exam Respiratory Exam: NORMAL BREATHING PATTERN Additional comments: Lungs clear - Cardiovascular Exam Cardiovascular Exam: Irregular Rhythm Additional comments: NSR with few APCs - GI/Abdominal Exam Additional comments: Softly distended. No tenderness. - Extremities Exam Additional comments: No edema Assessment and Plan - Assessment and Plan (Free Text) Assessment: Stage 111 kidney dis. Renal function is stable Electrolytes stabe Hb improved Plan: Continue to monitor renal function BP is stable.
--- NOTE | 2019-02-09 17:29 | PN ---
DATE: 02/09/2019 SUBJECTIVE: The patient is seen and examined. Interim events noted. Consults noted and appreciated. Cardiology, Gastroenterology and Nephrology followup and intervention noted and appreciated. Case discussed with box tender at bedside. The patient feels okay, denies any chest pain, shortness of breath, nausea, vomiting or diarrhea. Nursing staff had reported some bleeding in the toe. Currently, the patient denies any blood in stool. PHYSICAL EXAMINATION: GENERA The patient is in no acute distress. VITAL SIGNS: Stable. No orthostasis changes, no tachycardia. HEART: S1, S2, normal and regular. LUNGS: Good bilateral air exchange. ABDOMEN: Soft, nontender. EXTREMITIES: No edema. No calf swelling. No tenderness. No acute ischemia. CENTRAL NERVOUS SYSTEM: Essentially unchanged. DIAGNOSTIC DATA: Available diagnostic data reviewed. Hemoglobin is 9.8. Telemetry monitoring showed sinus rhythm. The patient had new onset of AFib. Cardiology workup and intervention noted and appreciated. Overall, the patient is clinically stable. PLAN: As ordered, treatment plan discussed with the patient and patient's at bedside. Gatito Mathew MD
[2019-02-09] MEDS: Metoprolol Succinate 25 mg XL Tab PO SCH (21:32)
[2019-02-10 06:59] LABS: ALB/GLOB RATIO 0.7 (1.0-2.1); ALBUMIN 2.4 g/dL (3.5-5.0); CALCIUM 7.9 mg/dL (8.4-10.2)
[2019-02-10] MEDS: Insulin Regular 100 units/ml SC SCH ×5 (07:09→22:16)
[2019-02-10 07:11] LABS: MEAN CELL VOLUME 83.9 fl (80.0-94.0); MEAN CORPUSCULAR HEMOGLOBIN 26.1 pg (27.0-31.0); MEAN CORPUSCULAR HGB CONC 31.1 g/dL (33.0-37.0); RBC 4.22 Mil/uL (4.40-5.90); RED CELL DISTRIBUTION WIDTH 21.8 % (11.5-14.5); WHITE BLOOD COUNT 7.3 K/uL (4.8-10.8)
--- NOTE | 2019-02-10 09:27 | CP.PCM.PN ---
Subjective - Date & Time of Evaluation Date of Evaluation: 02/10/19 Time of Evaluation: 09:25 - Subjective Subjective: Patient w/o complaint. Minimal GI bleeding. Objective - Vital Signs/Intake and Output Vital Signs (last 24 hours): Temp Pulse Resp BP Pulse Ox 97.1 F L 76 20 103/63 94 L 02/10/19 08:23 02/10/19 08:23 02/10/19 08:23 02/10/19 08:23 02/10/19 08:23 - Medications Medications: Current Medications Acetaminophen (Tylenol 325mg Tab) 650 mg PO Q6 PRN PRN Reason: Pain, Mild (1-3) Atorvastatin Calcium (Lipitor) 40 mg PO DAILY [facility] Last Admin: 02/09/19 08:51 Dose: 40 mg Benzocaine/Menthol (Cepacol Sore Throat) 1 alysa PO Q3 PRN PRN Reason: Sore Throat Dextrose (Dextrose 50% Inj) 0 ml IV STAT PRN; Protocol PRN Reason: Hypoglycemia Protocol Last Admin: 02/06/19 05:35 Dose: 25 ml Dextrose (Glutose 15) 0 gm PO ONCE PRN; Protocol PRN Reason: Hypoglycemia Protocol Dimethicone (Proshield Plus Skin Protectant) 1 applic TOP Q8 PRN PRN Reason: derm Last Admin: 02/09/19 21:36 Dose: 1 applic Ergocalciferol (Drisdol 50,000 Intl Units Cap) 1 cap PO FR [facility] Last Admin: 02/08/19 16:12 Dose: 1 cap Fluticasone Propionate (Flonase) 2 spr PRIYA DAILY [facility] Last Admin: 02/09/19 08:51 Dose: 2 spr Glucagon (Glucagen Diagnostic Kit) 0 mg IM STAT PRN; Protocol PRN Reason: Hypoglycemia Protocol Iron Sucrose 100 mg/ Sodium (Chloride) 105 mls @ 105 mls/hr IVPB DAILY [facility] Last Admin: 02/09/19 08:52 Dose: 105 mls/hr Methylprednisolone 20 mg/ (Sodium Chloride) 50 mls @ 100 mls/hr IV BID [facility] Insulin Human Regular (Humulin R) 0 units SC ACHS [facility]; Protocol Last Admin: 02/10/19 07:10 Dose: Not Given Loratadine (Claritin) 10 mg PO DAILY [facility] Last Admin: 02/09/19 08:50 Dose: 10 mg Memantine (Namenda) 10 mg PO BID [facility] Last Admin: 02/09/19 17:17 Dose: 10 mg Mesalamine (Rowasa Enema) 4 gm RC HS REPLACED [facility] Last Admin: 02/09/19 21:33 Dose: 4 gm Metoprolol Succinate (Toprol Xl) 25 mg PO Q12 [facility]PLACED BY [facility] Last Admin: 02/09/19 21:32 Dose: 25 mg Polyethylene Glycol/Electrolytes (Golytely) 4,000 ml PO ONCE ONE Stop: 02/10/19 13:01 Sennosides (Senokot Tab) 17.2 mg PO HS REPLACED BY [facility] Last Admin: 02/10/19 07:11 Dose: Not Given Sitagliptin Phosphate (Januvia) 25 mg PO DAILY [facility] Last Admin: 02/09/19 08:48 Dose: 25 mg Sucralfate (Carafate Oral Susp) 1 gm PO QID [facility] Last Admin: 02/09/19 21:31 Dose: 1 gm Tamsulosin HCl (Flomax) 0.4 mg PO DAILY [facility] Last Admin: 02/09/19 08:50 Dose: 0.4 mg - Labs Labs: 02/10/19 04:30 02/10/19 04:30 - Head Exam Head Exam: ATRAUMATIC - Eye Exam Eye Exam: Normal appearance Pupil Exam: PERRL - ENT Exam ENT Exam: Mucous Membranes Moist - Neck Exam Neck Exam: Full ROM - Respiratory Exam Respiratory Exam: NORMAL BREATHING PATTERN - Cardiovascular Exam Cardiovascular Exam: REGULAR RHYTHM - GI/Abdominal Exam GI & Abdominal Exam: Soft, Normal Bowel Sounds. absent: Tenderness Assessment and Plan (1) GI bleed Assessment & Plan: Bleeding has decreased and Hgb now 11. Colonscopy tomorrow. Prep ordered. Status: Resolved
[2019-02-10] MEDS: Metoprolol Succinate 25 mg XL Tab PO SCH ×2 (10:17→23:48)
[2019-02-10] MEDS: MethylPREDNISolone 40 mg Vial IVP SCH ×2 (10:18→21:23)
[2019-02-10] MEDS: Sucralfate 1 gm/10 ml Oral Susp UD PO SCH ×4 (10:22→21:31)
[2019-02-10] MEDS ORDERED: Peg-Electrolyte Oral Soln 4L (Golytely) PO ONE (13:00)
--- NOTE | 2019-02-10 14:52 | PN ---
DATE: 02/10/2019 SUBJECTIVE: The patient seen and examined, interim events noted. Consults noted and appreciated. The patient remains in regular medical floor progressive care unit with telemetry monitoring. Denies any specific complaint. No chest pain or shortness of breath. No abdominal pain. No bleeding. No vomit. PHYSICAL EXAMINATION: GENERAL: The patient is in no acute distress. VITAL SIGNS: Stable. HEART: S1 and S2 normal and regular. LUNGS: Good bilateral air exchange. ABDOMEN: Soft, nontender. EXTREMITIES: No edema, no calf swelling, no tenderness, no acute ischemia. CENTRAL NERVOUS SYSTEM: Essentially unchanged. No sign of acute abdomen. No guarding. No rigidity. No rebound. DIAGNOSTICS DATA: Available diagnostic data reviewed. Telemetry monitoring shows atrial fibrillation with heart rate about 105. Hemoglobin is stable. ASSESSMENT AND PLAN: Overall, the patient is medically stable. The patient is tentatively scheduled for colonoscopy tomorrow. Plan as ordered. Gatito Mathew MD
[2019-02-10] MEDS ORDERED: methylPREDNISolone 20 MG in Sodium Chloride 0.9% 50 ML IV SCH (17:00)
--- NOTE | 2019-02-10 18:02 | CP.PCM.PN ---
Subjective - Date & Time of Evaluation Date of Evaluation: 02/10/19 Time of Evaluation: 18:01 - Subjective Subjective: PT DENIES PALP, CP, LH, DIZZINESS, ABD PAIN, SOB. PT FOR COLONOSCOPY TOMORROW. Objective - Vital Signs/Intake and Output Vital Signs (last 24 hours): Temp Pulse Resp BP Pulse Ox 97.4 F L 74 20 115/71 100 02/10/19 12:46 02/10/19 12:46 02/10/19 12:46 02/10/19 12:46 02/10/19 12:46 - Medications Medications: Current Medications Acetaminophen (Tylenol 325mg Tab) 650 mg PO Q6 PRN PRN Reason: Pain, Mild (1-3) Atorvastatin Calcium (Lipitor) 40 mg PO DAILY [facility] Last Admin: 02/10/19 10:20 Dose: 40 mg Benzocaine/Menthol (Cepacol Sore Throat) 1 alysa PO Q3 PRN PRN Reason: Sore Throat Dextrose (Dextrose 50% Inj) 0 ml IV STAT PRN; Protocol PRN Reason: Hypoglycemia Protocol Last Admin: 02/06/19 05:35 Dose: 25 ml Dextrose (Glutose 15) 0 gm PO ONCE PRN; Protocol PRN Reason: Hypoglycemia Protocol Dimethicone (Proshield Plus Skin Protectant) 1 applic TOP Q8 PRN PRN Reason: derm Last Admin: 02/09/19 21:36 Dose: 1 applic Ergocalciferol (Drisdol 50,000 Intl Units Cap) 1 cap PO FR [facility] Last Admin: 02/08/19 16:12 Dose: 1 cap Fluticasone Propionate (Flonase) 2 spr PRIYA DAILY [facility] Last Admin: 02/10/19 10:20 Dose: 2 spr Glucagon (Glucagen Diagnostic Kit) 0 mg IM STAT PRN; Protocol PRN Reason: Hypoglycemia Protocol Iron Sucrose 100 mg/ Sodium (Chloride) 105 mls @ 105 mls/hr IVPB DAILY [facility] Last Admin: 02/10/19 11:22 Dose: 105 mls/hr Insulin Human Regular (Humulin R) 0 units SC ACHS [facility]; Protocol Last Admin: 02/10/19 17:25 Dose: Not Given Loratadine (Claritin) 10 mg PO DAILY [facility] Last Admin: 02/10/19 10:19 Dose: 10 mg Memantine (Namenda) 10 mg PO BID [facility] Last Admin: 02/10/19 17:25 Dose: 10 mg Mesalamine (Rowasa Enema) 4 gm RC HS [facility] Last Admin: 02/09/19 21:33 Dose: 4 gm Methylprednisolone (Solu-Medrol) 20 mg IVP Q12H [facility] Last Admin: 02/10/19 10:18 Dose: 20 mg Metoprolol Succinate (Toprol Xl) 25 mg PO Q12 [facility] Last Admin: 02/10/19 10:17 Dose: 25 mg Sennosides (Senokot Tab) 17.2 mg PO [facility] Last Admin: 02/10/19 07:11 Dose: Not Given Sitagliptin Phosphate (Januvia) 25 mg PO DAILY [facility] Last Admin: 02/10/19 10:19 Dose: 25 mg Sucralfate (Carafate Oral Susp) 1 gm PO QID [facility] Last Admin: 02/10/19 17:23 Dose: 1 gm Tamsulosin HCl (Flomax) 0.4 mg PO DAILY [facility] Last Admin: 02/10/19 10:19 Dose: 0.4 mg - Labs Labs: 02/10/19 04:30 02/10/19 04:30 - Constitutional Appears: Well - Head Exam Head Exam: ATRAUMATIC, NORMAL INSPECTION, NORMOCEPHALIC - Eye Exam Eye Exam: EOMI, Normal appearance, PERRL. absent: Conjunctival injection, Nystagmus, Periorbital swelling, Periorbital tenderness, Scleral icterus Pupil Exam: NORMAL ACCOMODATION, PERRL - ENT Exam ENT Exam: Mucous Membranes Moist, Normal Exam. absent: Mucous Membranes Dry, Normal External Ear Exam, Normal Oropharynx, TM's Normal Bilaterally - Neck Exam Neck Exam: Full ROM, Normal Inspection. absent: Lymphadenopathy, Meningismus, Tenderness, Thyromegaly - Respiratory Exam Respiratory Exam: Clear to Ausculation Bilateral, NORMAL BREATHING PATTERN. absent: Accessory Muscle Use, Chest Wall Tenderness, Decreased Breath Sounds, Prolonged Expiratory Phase, Rales, Rhonchi, Wheezes, Respiratory Distress, Stridor - Cardiovascular Exam Cardiovascular Exam: Irregular Rhythm, +S1, +S2, Murmur. absent: Bradycardia, Tachycardia, Clicks, Diastolic murmur, Gallop, REGULAR RHYTHM, JVD, RRR, Rubs, +S4 - GI/Abdominal Exam GI & Abdominal Exam: Soft, Normal Bowel Sounds. absent: Bruit, Distended, Firm, Guarding, Rigid, Tenderness, Diminished Bowel Sounds, Hernia, Hyperactive Bowel Sounds, Hypoactive Bowel Sounds, Organomegaly, Pulsatile Mass, Rebound, Mass - Rectal Exam Rectal Exam: Deferred - Extremities Exam Extremities Exam: Full ROM, Normal Capillary Refill, Normal Inspection. absent: Calf Tenderness, Joint Swelling, Pedal Edema, Tenderness - Back Exam Back Exam: NORMAL INSPECTION. absent: CVA tenderness (L), CVA tenderness (R), Full ROM, muscle spasm, paraspinal tenderness, rash noted, tenderness, vertebral tenderness - Neurological Exam Neurological Exam: Alert, Awake, CN II-XII Intact, Normal Gait, Oriented x3. absent: Abnormal Gait, Altered, Motor Sensory Deficit, Reflexes Normal - Psychiatric Exam Psychiatric exam: Normal Affect, Normal Mood. absent: Agitated, Anxious, Depressed, Flat Affect, Homicidal Ideation, Manic, Suicidal Ideation - Skin Skin Exam: Dry, Intact, Normal Color, Warm. absent: Abrasion, Cyanosis, Diaphoretic, Erythema, Mottled, Pallor, Pallor, Petechiae, Rash, Urticaria, Vesicles Assessment and Plan (1) New onset a-fib Status: Acute (2) Pre-operative cardiovascular examination Status: Acute (3) Anemia Status: Acute (4) GI bleed Status: Resolved (5) Ischemic stroke Status: Resolved (6) HTN (hypertension) Status: Chronic (7) High triglycerides Status: Chronic (8) Ulcerative colitis, chronic Status: Chronic - Assessment and Plan (Free Text) Plan: PT LOADED WITH AMIO WITHIN THE FIRST 48 HOURS OF AFIB ONSET. UNFORTUNATELY HE DID NOT CONVERT. FOR AMIO TO CONTINUE PT WOULD REQUIRE ANTICOAGULATION. THIS IS NOT AN OPTION FOR PT GIVEN GIB. THEREFORE AMIO WAS STOPPED. PT IS CURRENTLY RATE CONTROLLED ON BETA BLOCKERS. HE IS NOT ON ANTIPLT OR ANTICOAG THERAPY. FAMILY IS AT BEDSIDE AND UNDERSTAND HE IS HIGH RISK FOR CVA. 65 MIN TOTAL CARE TIME.
[2019-02-10] MEDS: Lactated Ringer's 1,000 ML IV SCH (21:57)
[2019-02-11] MEDS: Metoprolol Succinate 25 mg XL Tab PO SCH ×3 (01:52→21:29)
[2019-02-11 06:00] LABS: HEMOGLOBIN 10.7 g/dL (12.0-18.0); MEAN CELL VOLUME 83.5 fl (80.0-94.0); MEAN CORPUSCULAR HEMOGLOBIN 26.4 pg (27.0-31.0); MEAN CORPUSCULAR HGB CONC 31.6 g/dL (33.0-37.0); RBC 4.06 Mil/uL (4.40-5.90); RED CELL DISTRIBUTION WIDTH 22.7 % (11.5-14.5); WHITE BLOOD COUNT 8.4 K/uL (4.8-10.8)
[2019-02-11 06:29] LABS: ALB/GLOB RATIO 0.7 (1.0-2.1); ALBUMIN 2.5 g/dL (3.5-5.0); CALCIUM 7.8 mg/dL (8.4-10.2)
[2019-02-11] MEDS: MethylPREDNISolone 40 mg Vial IVP SCH ×3 (08:26→21:27)
[2019-02-11] MEDS: Insulin Regular 100 units/ml SC SCH ×4 (08:28→21:25)
[2019-02-11] MEDS: Proshield Plus GEL TOP PRN (08:29)
[2019-02-11] MEDS: Sucralfate 1 gm/10 ml Oral Susp UD PO SCH ×4 (09:07→21:25)
--- NOTE | 2019-02-11 09:28 | PN ---
DATE: 02/11/2019 SUBJECTIVE: The patient is seen and examined. Interim events noted. Consults noted and appreciated. Cardiology followup and intervention noted and appreciated. The patient remains in progressive care unit with telemetry monitoring. The patient drank GoLYTELY and had significant diarrhea and bowel cleanup, but denies any chest pain. No shortness of breath. No abdominal pain. PHYSICAL EXAMINATION: GENERAL: The patient is in no acute distress. VITAL SIGNS: Stable. HEART: S1 and S2 normal and regular. LUNGS: Good bilateral air exchange. ABDOMEN: Soft and nontender. No sign of acute abdomen. No guarding. No rigidity. No rebound. Bowel sounds are present and normal. EXTREMITIES: No edema. No calf swelling. No tenderness. No acute ischemia. CENTRAL NERVOUS SYSTEM: Essentially unchanged. DIAGNOSTIC DATA: Available diagnostic data reviewed. CBC, CMP are acceptable. Hemoglobin level is 10.7. Telemetry monitoring still shows atrial fibrillation. Amiodarone was stopped. Cardiology followup and intervention and suggestions noted and appreciated. The patient is for colonoscopy today. ASSESSMENT AND PLAN: Plan as ordered. Case and plan discussed with the patient. Gatito Mathew MD
[2019-02-11] MEDS ORDERED: Lactated Ringer's 500 ML IV ONE (12:00)
[2019-02-11] MEDS ORDERED: Propofol 10 mg/ml Inj (20 ML) ONE (12:07)
[2019-02-11] MEDS ORDERED: Etomidate 20 mg/10ml Inj IV ONE (12:07)
[2019-02-11] MEDS ORDERED: Lidocaine 1% Inj (20ml) IJ ONE (14:05)
--- NOTE | 2019-02-11 14:34 | CP.PCM.PN ---
Subjective - Date & Time of Evaluation Date of Evaluation: 02/11/19 Time of Evaluation: 02:00 - Subjective Subjective: Appears comfortable in bed. No c/o CP or SOB Developed A. fib since yesterday. Objective - Vital Signs/Intake and Output Vital Signs (last 24 hours): Temp Pulse Resp BP Pulse Ox 97 F L 87 16 110/56 L 99 02/11/19 12:40 02/11/19 12:40 02/11/19 12:40 02/11/19 12:40 02/11/19 12:40 Intake and Output: 02/11/19 02/11/19 06:59 18:59 Intake Total 160 Balance 160 - Medications Medications: Current Medications Acetaminophen (Tylenol 325mg Tab) 650 mg PO Q6 PRN PRN Reason: Pain, Mild (1-3) Atorvastatin Calcium (Lipitor) 40 mg PO DAILY [facility] Last Admin: 02/10/19 10:20 Dose: 40 mg Benzocaine/Menthol (Cepacol Sore Throat) 1 alysa PO Q3 PRN PRN Reason: Sore Throat Dextrose (Dextrose 50% Inj) 0 ml IV STAT PRN; Protocol PRN Reason: Hypoglycemia Protocol Last Admin: 02/06/19 05:35 Dose: 25 ml Dextrose (Glutose 15) 0 gm PO ONCE PRN; Protocol PRN Reason: Hypoglycemia Protocol Dimethicone (Proshield Plus Skin Protectant) 1 applic TOP Q8 PRN PRN Reason: derm Last Admin: 02/11/19 08:29 Dose: 1 applic Ergocalciferol (Drisdol 50,000 Intl Units Cap) 1 cap PO FR [facility] Last Admin: 02/08/19 16:12 Dose: 1 cap Fluticasone Propionate (Flonase) 2 spr PRIYA DAILY [facility] Last Admin: 02/11/19 08:28 Dose: 2 spr Glucagon (Glucagen Diagnostic Kit) 0 mg IM STAT PRN; Protocol PRN Reason: Hypoglycemia Protocol Iron Sucrose 100 mg/ Sodium (Chloride) 105 mls @ 105 mls/hr IVPB DAILY [facility] Last Admin: 02/11/19 11:07 Dose: 105 mls/hr Lactated Ringer's (Lactated Ringer's) 1,000 mls @ 60 mls/hr IV .[id number] [facility] Last Admin: 02/10/19 21:57 Dose: 60 mls/hr Insulin Human Regular (Humulin R) 0 units SC ACHS [facility]; Protocol Last Admin: 02/11/19 08:28 Dose: Not Given Loratadine (Claritin) 10 mg PO DAILY [facility] Last Admin: 02/11/19 11:08 Dose: Not Given Memantine (Namenda) 10 mg PO BID [facility] Last Admin: 02/11/19 08:29 Dose: Not Given Mesalamine (Rowasa Enema) 4 gm RC [facility] Last Admin: 02/10/19 22:12 Dose: 4 gm Methylprednisolone (Solu-Medrol) 20 mg IVP Q12H [facility] Last Admin: 02/11/19 09:08 Dose: Not Given Metoprolol Succinate (Toprol Xl) 25 mg PO Q12 [facility] Last Admin: 02/11/19 08:27 Dose: 25 mg Sennosides (Senokot Tab) 17.2 mg PO [facility] Last Admin: 02/10/19 21:24 Dose: 17.2 mg Sitagliptin Phosphate (Januvia) 25 mg PO DAILY [facility] Last Admin: 02/11/19 08:28 Dose: Not Given Sucralfate (Carafate Oral Susp) 1 gm PO QID [facility] Last Admin: 02/11/19 09:07 Dose: Not Given Tamsulosin HCl (Flomax) 0.4 mg PO DAILY [facility] Last Admin: 02/10/19 10:19 Dose: 0.4 mg - Labs Labs: 02/11/19 04:35 02/11/19 04:35 - Constitutional Appears: No Acute Distress - Head Exam Head Exam: ATRAUMATIC, NORMOCEPHALIC - Eye Exam Eye Exam: Normal appearance - ENT Exam ENT Exam: Mucous Membranes Moist - Neck Exam Additional comments: No jugular venous distension. - Respiratory Exam Respiratory Exam: NORMAL BREATHING PATTERN Additional comments: Lungs clear - Cardiovascular Exam Cardiovascular Exam: Irregular Rhythm Additional comments: A. 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 GI bleed. Hb stablw Plan: Continue current Mx Monitor renal function
--- NOTE | 2019-02-11 16:17 | PCM.RRT ---
<Iqra Mason - Last Filed: 02/11/19 17:11> CARE SPECIALIST Nurse Assessment - Situation CARE SPECIALIST Responder Arrival Time: 13:20 Location: Room Number: 405-2 CARE SPECIALIST Reason for Call: Looks Sicker CARE SPECIALIST Called By: RN - IV IV Inserted during CARE SPECIALIST?: No - Respiratory Oxygen Delivery Method: Room Air Received Nebulizer Treatments: No Was the Patient Ventilated with Bag/Mask 100% O2?: No Secretions Suctioned?: No Was the Patient Intubated?: No Was the Patient Placed on a Ventilator?: No - Diagnostic Test Ordered EKG: No Chest X-Ray: No CT Scan: No CPR started during CARE SPECIALIST?: No - Vital Signs Vital Signs: Rapid Response Vital Sign Blood Pressure 113/73 Pulse Rate 72 Respiratory Rate 18 Temperature 97 F Oxygen Saturation 97 - Time CARE SPECIALIST Ended Time CARE SPECIALIST Ended: 13:35 - Vital Signs at end of CARE SPECIALIST Vital Signs at end of CARE SPECIALIST: Rapid Response End Vital Sign Blood Pressure 120/82 Pulse Rate 66 Respiratory Rate 18 Temperature 97 F O2 Sat by Pulse Oximetry 97 - Recommendations CARE SPECIALIST Level of Care Recommendations: Remain in current setting I.Reason for CARE SPECIALIST - A) Acute Change in Patient: Subjective: CARE SPECIALIST called by nurse due to patient falling upon transfer from one bed to another [place] [facility] He did hit his head on the side of the bed but did not lose consciousness. A small 1-2cm laceration was noted on the left occipital region. Neuro exam intact. Pt denies dizziness, weakness, syncope, palpitations, nausea, and vomiting. Pt given tylenol for headache. Laceration cleaned with NS, lidocane injected and 2 interrupted stitches placed, no active bleeding noted, vitally stable. CARE SPECIALIST team: Dr Cuellar, Dr Duvall, Dr Mason <Juice Cuellar - Last Filed: 02/12/19 15:52> CARE SPECIALIST Nurse Assessment - Vital Signs Vital Signs: Rapid Response Vital Sign Blood Pressure 113/73 Pulse Rate 72 Respiratory Rate 18 Temperature 97 F Oxygen Saturation 97 - Vital Signs at end of CARE SPECIALIST Vital Signs at end of CARE SPECIALIST: Rapid Response End Vital Sign Blood Pressure 120/82 Pulse Rate 66 Respiratory Rate 18 Temperature 97 F O2 Sat by Pulse Oximetry 97 Attending/Attestation - Attestation I have personally seen and examined this patient.: Yes I have fully participated in the care of the patient.: Yes I have reviewed all pertinent clinical information, including history, physical exam and plan: Yes Notes (Text): 02/12/19 15:48 Patient seen and examined with resident during CARE SPECIALIST because of a fall going back to bed after a GI procedure. Patient did not lose consciousness but had a 1-2cm laceration in the scalp which was sutured by resident.
[2019-02-11] MEDS: Lactated Ringer's 1,000 ML IV SCH (17:53)
--- NOTE | 2019-02-11 21:21 | CP.PCM.PN ---
Subjective - Date & Time of Evaluation Date of Evaluation: 02/11/19 Time of Evaluation: 21:17 - Subjective Subjective: PT IS SP COLONOSCOPY. ALSO SP FALL WITH HEAD LACERATION. DENIES PALP, LH, PAIN. Objective - Vital Signs/Intake and Output Vital Signs (last 24 hours): Temp Pulse Resp BP Pulse Ox 97.5 F L 76 18 105/72 96 02/11/19 20:09 02/11/19 20:09 02/11/19 20:09 02/11/19 20:09 02/11/19 20:09 Intake and Output: 02/11/19 02/12/19 18:59 06:59 Intake Total 160 Balance 160 - Medications Medications: Current Medications Acetaminophen (Tylenol 325mg Tab) 650 mg PO Q6 PRN PRN Reason: Pain, Mild (1-3) Last Admin: 02/11/19 14:33 Dose: 650 mg Atorvastatin Calcium (Lipitor) 40 mg PO DAILY [facility] Last Admin: 02/11/19 17:54 Dose: 40 mg Benzocaine/Menthol (Cepacol Sore Throat) 1 alysa PO Q3 PRN PRN Reason: Sore Throat Dextrose (Dextrose 50% Inj) 0 ml IV STAT PRN; Protocol PRN Reason: Hypoglycemia Protocol Last Admin: 02/06/19 05:35 Dose: 25 ml Dextrose (Glutose 15) 0 gm PO ONCE PRN; Protocol PRN Reason: Hypoglycemia Protocol Dimethicone (Proshield Plus Skin Protectant) 1 applic TOP Q8 PRN PRN Reason: derm Last Admin: 02/11/19 08:29 Dose: 1 applic Ergocalciferol (Drisdol 50,000 Intl Units Cap) 1 cap PO FR [facility] Last Admin: 02/08/19 16:12 Dose: 1 cap Fluticasone Propionate (Flonase) 2 spr PRIYA DAILY [facility] Last Admin: 02/11/19 08:28 Dose: 2 spr Glucagon (Glucagen Diagnostic Kit) 0 mg IM STAT PRN; Protocol PRN Reason: Hypoglycemia Protocol Iron Sucrose 100 mg/ Sodium (Chloride) 105 mls @ 105 mls/hr IVPB DAILY [facility] Last Admin: 02/11/19 11:07 Dose: 105 mls/hr Lactated Ringer's (Lactated Ringer's) 1,000 mls @ 60 mls/hr IV .[id number] [facility] Last Admin: 02/11/19 17:53 Dose: 60 mls/hr Insulin Human Regular (Humulin R) 0 units SC ACHS [facility]; Protocol Last Admin: 02/11/19 17:55 Dose: Not Given Loratadine (Claritin) 10 mg PO DAILY [facility] Last Admin: 02/11/19 11:08 Dose: Not Given Memantine (Namenda) 10 mg PO BID [facility] Last Admin: 02/11/19 17:56 Dose: 10 mg Mesalamine (Rowasa Enema) 4 gm RC [facility] Last Admin: 02/10/19 22:12 Dose: 4 gm Methylprednisolone (Solu-Medrol) 20 mg IVP Q12H [facility] Last Admin: 02/11/19 09:08 Dose: Not Given Metoprolol Succinate (Toprol Xl) 25 mg PO Q12 [facility] Last Admin: 02/11/19 08:27 Dose: 25 mg Sennosides (Senokot Tab) 17.2 mg PO [facility] Last Admin: 02/10/19 21:24 Dose: 17.2 mg Sitagliptin Phosphate (Januvia) 25 mg PO DAILY [facility] Last Admin: 02/11/19 08:28 Dose: Not Given Sucralfate (Carafate Oral Susp) 1 gm PO QID [facility] Last Admin: 02/11/19 17:55 Dose: Not Given Tamsulosin HCl (Flomax) 0.4 mg PO DAILY [facility] Last Admin: 02/11/19 17:53 Dose: 0.4 mg - Labs Labs: 02/11/19 04:35 02/11/19 04:35 - Constitutional Appears: Well - Head Exam Head Exam: ATRAUMATIC, NORMAL INSPECTION, NORMOCEPHALIC - Eye Exam Eye Exam: EOMI, Normal appearance, PERRL. absent: Conjunctival injection, Nystagmus, Periorbital swelling, Periorbital tenderness, Scleral icterus Pupil Exam: NORMAL ACCOMODATION, PERRL - ENT Exam ENT Exam: Mucous Membranes Moist, Normal Exam. absent: Mucous Membranes Dry, Normal External Ear Exam, Normal Oropharynx, TM's Normal Bilaterally - Neck Exam Neck Exam: Full ROM, Normal Inspection - Respiratory Exam Respiratory Exam: Clear to Ausculation Bilateral, NORMAL BREATHING PATTERN. absent: Accessory Muscle Use, Chest Wall Tenderness, Decreased Breath Sounds, Prolonged Expiratory Phase, Rales, Rhonchi, Wheezes, Respiratory Distress, Stridor - Cardiovascular Exam Cardiovascular Exam: Irregular Rhythm, +S1, +S2, Murmur. absent: Bradycardia, Tachycardia, Clicks, Diastolic murmur, Gallop, REGULAR RHYTHM, JVD, RRR, Rubs, +S4 - GI/Abdominal Exam GI & Abdominal Exam: Soft, Normal Bowel Sounds. absent: Bruit, Distended, Firm, Guarding, Rigid, Tenderness, Diminished Bowel Sounds, Hernia, Hyperactive Bowel Sounds, Hypoactive Bowel Sounds, Organomegaly, Pulsatile Mass, Rebound, Mass - Rectal Exam Rectal Exam: Deferred - Extremities Exam Extremities Exam: Full ROM, Normal Capillary Refill, Normal Inspection. absent: Joint Swelling, Pedal Edema - Back Exam Back Exam: NORMAL INSPECTION. absent: CVA tenderness (L), CVA tenderness (R), Full ROM, muscle spasm, paraspinal tenderness, rash noted, tenderness, vertebral tenderness - Neurological Exam Neurological Exam: Alert, Awake, CN II-XII Intact, Normal Gait, Oriented x3. absent: Abnormal Gait, Altered, Motor Sensory Deficit, Reflexes Normal - Psychiatric Exam Psychiatric exam: Normal Affect, Normal Mood. absent: Agitated, Anxious, Depressed, Flat Affect, Homicidal Ideation, Manic, Suicidal Ideation - Skin Skin Exam: Dry, Intact, Normal Color, Warm. absent: Abrasion, Cyanosis, Diaphoretic, Erythema, Mottled, Pallor, Pallor, Petechiae, Rash, Urticaria, Vesicles Assessment and Plan (1) New onset a-fib Status: Acute (2) Pre-operative cardiovascular examination Status: Acute (3) Anemia Status: Acute (4) GI bleed Status: Resolved (5) Ischemic stroke Status: Resolved (6) HTN (hypertension) Status: Chronic (7) High triglycerides Status: Chronic (8) Ulcerative colitis, chronic Status: Chronic (9) Fall Status: Acute - Assessment and Plan (Free Text) Plan: RECHECK AM LABS AND REPLEAT LYTES KEEP K AT 4.5 AND MAG > 2 BP ON LOW SIDE CONTINUE TO MONITOR ON TELE IVF NEEDED AWAIT COLONOSCOPY RESULTS. WILL NEED GI INPUT REGARDING ANTIPLTS AND ANTICOAGULATION 55 MIN TOTAL
[2019-02-12 06:18] LABS: HEMOGLOBIN 10.9 g/dL (12.0-18.0); MEAN CELL VOLUME 82.9 fl (80.0-94.0); MEAN CORPUSCULAR HEMOGLOBIN 26.2 pg (27.0-31.0); MEAN CORPUSCULAR HGB CONC 31.6 g/dL (33.0-37.0); RBC 4.17 Mil/uL (4.40-5.90); RED CELL DISTRIBUTION WIDTH 22.5 % (11.5-14.5); WHITE BLOOD COUNT 7.1 K/uL (4.8-10.8)
--- NOTE | 2019-02-12 06:25 | CP.PCM.PN ---
<Jesus Collier - Last Filed: 02/12/19 13:15> Subjective - Date & Time of Evaluation Date of Evaluation: 02/12/19 Time of Evaluation: 06:25 - Subjective Subjective: Pt seen and examined at bedside with Dr. Mathew. Pt reports mild headache since recent fall, requiring 2 stitches. Alert and oriented to person and place. Afebrile. Objective - Vital Signs/Intake and Output Vital Signs (last 24 hours): Temp Pulse Resp BP Pulse Ox 98 F 70 18 105/63 95 02/12/19 05:00 02/12/19 05:00 02/12/19 05:00 02/12/19 05:00 02/12/19 05:00 Intake and Output: 02/11/19 02/12/19 18:59 06:59 Intake Total 160 Balance 160 - Medications Medications: Current Medications Acetaminophen (Tylenol 325mg Tab) 650 mg PO Q6 PRN PRN Reason: Pain, Mild (1-3) Last Admin: 02/11/19 14:33 Dose: 650 mg Atorvastatin Calcium (Lipitor) 40 mg PO DAILY [facility] Last Admin: 02/11/19 17:54 Dose: 40 mg Benzocaine/Menthol (Cepacol Sore Throat) 1 alysa PO Q3 PRN PRN Reason: Sore Throat Dextrose (Dextrose 50% Inj) 0 ml IV STAT PRN; Protocol PRN Reason: Hypoglycemia Protocol Last Admin: 02/06/19 05:35 Dose: 25 ml Dextrose (Glutose 15) 0 gm PO ONCE PRN; Protocol PRN Reason: Hypoglycemia Protocol Dimethicone (Proshield Plus Skin Protectant) 1 applic TOP Q8 PRN PRN Reason: derm Last Admin: 02/11/19 08:29 Dose: 1 applic Ergocalciferol (Drisdol 50,000 Intl Units Cap) 1 cap PO FR [facility] Last Admin: 02/08/19 16:12 Dose: 1 cap Fluticasone Propionate (Flonase) 2 spr PRIYA DAILY [facility] Last Admin: 02/11/19 08:28 Dose: 2 spr Glucagon (Glucagen Diagnostic Kit) 0 mg IM STAT PRN; Protocol PRN Reason: Hypoglycemia Protocol Iron Sucrose 100 mg/ Sodium (Chloride) 105 mls @ 105 mls/hr IVPB DAILY [facility] Last Admin: 02/11/19 11:07 Dose: 105 mls/hr Lactated Ringer's (Lactated Ringer's) 1,000 mls @ 60 mls/hr IV .[id number] [facility] Last Admin: 02/11/19 17:53 Dose: 60 mls/hr Insulin Human Regular (Humulin R) 0 units SC ACHS [facility]; Protocol Last Admin: 02/11/19 21:25 Dose: Not Given Loratadine (Claritin) 10 mg PO DAILY [facility] Last Admin: 02/11/19 11:08 Dose: Not Given Memantine (Namenda) 10 mg PO BID [facility] Last Admin: 02/11/19 17:56 Dose: 10 mg Mesalamine (Rowasa Enema) 4 gm RC [facility] Last Admin: 02/11/19 21:26 Dose: Not Given Methylprednisolone (Solu-Medrol) 20 mg IVP Q12H [facility] Last Admin: 02/11/19 21:27 Dose: 20 mg Metoprolol Succinate (Toprol Xl) 25 mg PO Q12 [facility] Last Admin: 02/11/19 21:29 Dose: 25 mg Sennosides (Senokot Tab) 17.2 mg PO [facility] Last Admin: 02/11/19 21:26 Dose: 17.2 mg Sitagliptin Phosphate (Januvia) 25 mg PO DAILY [facility] Last Admin: 02/11/19 08:28 Dose: Not Given Sucralfate (Carafate Oral Susp) 1 gm PO QID [facility] Last Admin: 02/11/19 21:25 Dose: 1 gm Tamsulosin HCl (Flomax) 0.4 mg PO DAILY [facility] Last Admin: 02/11/19 17:53 Dose: 0.4 mg - Labs Labs: 02/12/19 06:05 02/11/19 04:35 - Constitutional Appears: No Acute Distress - Head Exam Additional comments: sutures in place, non draining intact wound. - Eye Exam Eye Exam: EOMI - ENT Exam ENT Exam: Mucous Membranes Moist - Respiratory Exam Respiratory Exam: Clear to Ausculation Bilateral, NORMAL BREATHING PATTERN. absent: Wheezes - Cardiovascular Exam Cardiovascular Exam: Tachycardia, Irregular Rhythm, +S1, +S2 - GI/Abdominal Exam GI & Abdominal Exam: Soft, Normal Bowel Sounds. absent: Tenderness - Extremities Exam Extremities Exam: absent: Calf Tenderness - Neurological Exam Neurological Exam: Alert, Awake. absent: Oriented x3 - Psychiatric Exam Psychiatric exam: Normal Affect, Normal Mood Assessment and Plan (1) Ulcerative colitis, chronic Status: Chronic (2) CKD (chronic kidney disease) Status: Acute (3) Diabetes Status: Acute (4) Dementia Status: Acute (5) Gait instability Status: Acute (6) Anemia Status: Acute (7) HTN (hypertension) Status: Chronic (8) Afib Status: Acute - Assessment and Plan (Free Text) Assessment: 78 y/o male with PMH of Ulcerative colitis, HTN, Bladder Ca, Dementia, prediabetes and CVA in 2007 recently admitted to [facility] for evaluation and treatment of acute bloody diarrhea with R abdominal pain. CT evidence of left sided colitis and treated with Cipro and Flagyl for colitis and his GI bleed eventually resolved, though diarrhea has been persistent and chronic (Cdiff negative). He was found to have low hemoglobin levels that remained stable between 8 - 9. Subsequently during this admission he suffered an acute ischemic stroke for he was evaluated by neurology and cardiology and treated with dual antiplatelet therapy. He had acute kidney injury and hypernatremia which was resolved with IV fluid hydrations under management of client experience specialist. While in sub acute rehab for rehabilitation, pt represented with bloody stools and dropping hemoglobin. Pt consented with for 2 units PRBC in preparation for Colonoscopy. Pt evaluated by Dr. Valero and team for dizziness and inability to fully engage in therapy. Admitted to tele. Plan: GI Bleed -GI Dr. Calvert: colonoscopy 02/11/2019: stricture with biopsy; pt for barium enema today -Gen surg: Dr. Garcia: further recs appreciated -NPO; -FOBT +; stool leukocytes: negative and fat: normal -ASA and plavix discontinued -c/w sucralfate -f/u path report from bx and barium enema Anemia, chronic -H/H: 10.9/34.5; improving -s/p IV venofer -pt to start po iron -monitor for bleed and hgb level and vitals UC, chronic -GI Dr. Calvert -c/w Mesalamine Afib -new onset this admission -asx -on tele monitor -[id number] score: 6 --rate control with meoprolol 25 mg P12 --CI to asa due to active GI bleed -Cardiology Dr. Potts: further recs appreciated head trauma 2/2 fall -stitches x2 -pt reports headache 03/15 -ct head without ordered -monitor vitals, progression, neuro deficits CKD -Stage 3 -acute on chronic kidney disease with solitary R kidney. -Nephrology: Dr. Boone consulted: recs appreciated Hypokalemia -resolved -3.7; per cardiology: keep at 4.5 -s/p K runs -f/u am labs HTN -controlled -c/w metoprolol DM -c/w januvia -accuchecks -hypoglycemia protocol in place Hx of Acute CVA -Neuro: Dr. Sanchez; f/u neuro OP -c/w atorvastatin Dementia -c/w memantine Esophagitis, acute -s/p Diflucan Rhinitis -c/w Fluticasone and loratidine DVT/wound prophylaxis -scd (active bleed) -c/w Proshield Gait instability -PT/OT eval/treat -fall precautions Case and plan d/w Dr. Priyanka Collier MD PGY-2 <Gatito Mathew - Last Filed: 02/13/19 12:45> Objective - Vital Signs/Intake and Output Vital Signs (last 24 hours): Temp Pulse Resp BP Pulse Ox 97.6 F 82 18 111/73 95 02/13/19 12:00 02/13/19 12:00 02/13/19 12:00 02/13/19 12:00 02/13/19 12:00 - Medications Medications: Current Medications Acetaminophen (Tylenol 325mg Tab) 650 mg PO Q6 PRN PRN Reason: Pain, Mild (1-3) Last Admin: 02/13/19 10:38 Dose: 650 mg Atorvastatin Calcium (Lipitor) 40 mg PO DAILY [facility] Last Admin: 02/13/19 10:05 Dose: 40 mg Benzocaine/Menthol (Cepacol Sore Throat) 1 alysa PO Q3 PRN PRN Reason: Sore Throat Dextrose (Dextrose 50% Inj) 0 ml IV STAT PRN; Protocol PRN Reason: Hypoglycemia Protocol Last Admin: 02/06/19 05:35 Dose: 25 ml Dextrose (Glutose 15) 0 gm PO ONCE PRN; Protocol PRN Reason: Hypoglycemia Protocol Dimethicone (Proshield Plus Skin Protectant) 1 applic TOP Q8 PRN PRN Reason: derm Last Admin: 02/13/19 10:04 Dose: 1 applic Ergocalciferol (Drisdol 50,000 Intl Units Cap) 1 cap PO FR [facility] Last Admin: 02/08/19 16:12 Dose: 1 cap Fluticasone Propionate (Flonase) 2 spr PRIYA DAILY [facility] Last Admin: 02/13/19 10:07 Dose: 2 spr Glucagon (Glucagen Diagnostic Kit) 0 mg IM STAT PRN; Protocol PRN Reason: Hypoglycemia Protocol Iron Sucrose 100 mg/ Sodium (Chloride) 105 mls @ 105 mls/hr IVPB DAILY [facility] Last Admin: 02/12/19 12:07 Dose: 105 mls/hr Potassium Chloride/Dextrose/Sod Cl (Potassium Chl 20 Meq In D5-1/2ns) 1,000 mls @ 80 mls/hr IV .[id number] [facility] Stop: 02/14/19 09:54 Insulin Human Regular (Humulin R) 0 units SC ACHS [facility]; Protocol Last Admin: 02/13/19 08:07 Dose: Not Given Memantine (Namenda) 10 mg PO BID [facility] Last Admin: 02/13/19 10:05 Dose: 10 mg Mesalamine (Rowasa Enema) 4 gm RC HS [facility] Last Admin: 02/12/19 21:17 Dose: Not Given Methylprednisolone (Solu-Medrol) 20 mg IVP Q12H [facility] Last Admin: 02/13/19 10:05 Dose: 20 mg Metoprolol Succinate (Toprol Xl) 25 mg PO Q12 [facility] Last Admin: 02/13/19 10:09 Dose: Not Given Sennosides (Senokot Tab) 17.2 mg PO HS [facility] Last Admin: 02/12/19 21:18 Dose: 17.2 mg Sitagliptin Phosphate (Januvia) 25 mg PO DAILY [facility] Last Admin: 02/13/19 10:05 Dose: 25 mg Sucralfate (Carafate Oral Susp) 1 gm PO QID [facility] Last Admin: 02/13/19 09:33 Dose: 1 gm Tamsulosin HCl (Flomax) 0.4 mg PO DAILY [facility] Last Admin: 02/13/19 10:07 Dose: 0.4 mg - Labs Labs: 02/12/19 06:05 02/12/19 06:05 Assessment and Plan - Assessment and Plan (Free Text) Plan: Patient was personally seen and examined by me in rounds with residents. Available labs and diagnostic data reviewed. Case, Patient's condition and management plan discussed with residents in rounds. Agree with resident's progress note. Plan: As ordered.
[2019-02-12 06:28] LABS: CALCIUM 7.5 mg/dL (8.4-10.2)
[2019-02-12] MEDS: Metoprolol Succinate 25 mg XL Tab PO SCH ×3 (06:50→21:19)
[2019-02-12] MEDS ORDERED: Potassium Chloride 20 mEq ER Tab PO ONE (07:30)
[2019-02-12] MEDS: Insulin Regular 100 units/ml SC SCH ×4 (08:15→22:32)
[2019-02-12] MEDS: MethylPREDNISolone 40 mg Vial IVP SCH ×2 (09:55→21:18)
[2019-02-12] MEDS: Sucralfate 1 gm/10 ml Oral Susp UD PO SCH ×4 (09:55→21:16)
[2019-02-12] MEDS: Lactated Ringer's 1,000 ML IV SCH (09:57)
--- NOTE | 2019-02-12 10:29 | CP.PCM.PN ---
Subjective - Date & Time of Evaluation Date of Evaluation: 02/12/19 Time of Evaluation: 10:20 - Subjective Subjective: GI NOTE FOR DR. CLARKE 78M seen and examined at bedside. Patient doing well. No blood per rectum since endoscopy noted. Mild abdominal pain, denies nausea or vomiting. Objective - Vital Signs/Intake and Output Vital Signs (last 24 hours): Temp Pulse Resp BP Pulse Ox 97.3 F L 61 18 107/68 96 02/12/19 07:49 02/12/19 07:49 02/12/19 07:49 02/12/19 07:49 02/12/19 07:49 - Medications Medications: Current Medications Acetaminophen (Tylenol 325mg Tab) 650 mg PO Q6 PRN PRN Reason: Pain, Mild (1-3) Last Admin: 02/12/19 09:52 Dose: 650 mg Atorvastatin Calcium (Lipitor) 40 mg PO DAILY [facility] Last Admin: 02/11/19 17:54 Dose: 40 mg Benzocaine/Menthol (Cepacol Sore Throat) 1 alysa PO Q3 PRN PRN Reason: Sore Throat Dextrose (Dextrose 50% Inj) 0 ml IV STAT PRN; Protocol PRN Reason: Hypoglycemia Protocol Last Admin: 02/06/19 05:35 Dose: 25 ml Dextrose (Glutose 15) 0 gm PO ONCE PRN; Protocol PRN Reason: Hypoglycemia Protocol Dimethicone (Proshield Plus Skin Protectant) 1 applic TOP Q8 PRN PRN Reason: derm Last Admin: 02/11/19 08:29 Dose: 1 applic Ergocalciferol (Drisdol 50,000 Intl Units Cap) 1 cap PO FR [facility] Last Admin: 02/08/19 16:12 Dose: 1 cap Fluticasone Propionate (Flonase) 2 spr PRIYA DAILY [facility] Last Admin: 02/12/19 09:56 Dose: 2 spr Glucagon (Glucagen Diagnostic Kit) 0 mg IM STAT PRN; Protocol PRN Reason: Hypoglycemia Protocol Iron Sucrose 100 mg/ Sodium (Chloride) 105 mls @ 105 mls/hr IVPB DAILY [facility] Last Admin: 02/11/19 11:07 Dose: 105 mls/hr Lactated Ringer's (Lactated Ringer's) 1,000 mls @ 60 mls/hr IV .[id number] [facility] Last Admin: 02/12/19 09:57 Dose: 60 mls/hr Insulin Human Regular (Humulin R) 0 units SC ACHS [facility]; Protocol Last Admin: 02/12/19 08:15 Dose: Not Given Loratadine (Claritin) 10 mg PO DAILY [facility] Last Admin: 02/11/19 11:08 Dose: Not Given Memantine (Namenda) 10 mg PO BID [facility] Last Admin: 02/12/19 09:55 Dose: Not Given Mesalamine (Rowasa Enema) 4 gm RC [facility] Last Admin: 02/11/19 21:26 Dose: Not Given Methylprednisolone (Solu-Medrol) 20 mg IVP Q12H [facility] Last Admin: 02/12/19 09:55 Dose: 20 mg Metoprolol Succinate (Toprol Xl) 25 mg PO Q12 [facility] Last Admin: 02/12/19 06:50 Dose: 25 mg Sennosides (Senokot Tab) 17.2 mg PO [facility] Last Admin: 02/11/19 21:26 Dose: 17.2 mg Sitagliptin Phosphate (Januvia) 25 mg PO DAILY [facility] Last Admin: 02/11/19 08:28 Dose: Not Given Sucralfate (Carafate Oral Susp) 1 gm PO QID [facility] Last Admin: 02/12/19 09:55 Dose: Not Given Tamsulosin HCl (Flomax) 0.4 mg PO DAILY [facility] Last Admin: 02/11/19 17:53 Dose: 0.4 mg - Labs Labs: 02/12/19 06:05 02/12/19 06:05 - Constitutional Appears: Non-toxic, No Acute Distress - Respiratory Exam Respiratory Exam: Clear to Ausculation Bilateral, NORMAL BREATHING PATTERN - Cardiovascular Exam Cardiovascular Exam: REGULAR RHYTHM, +S1, +S2 - GI/Abdominal Exam GI & Abdominal Exam: Soft, Tenderness (mild diffuse ). absent: Distended, Firm, Guarding, Rigid, Rebound - Extremities Exam Extremities Exam: absent: Pedal Edema, Tenderness - Neurological Exam Neurological Exam: Alert, Awake Assessment and Plan - Assessment and Plan (Free Text) Assessment: 78M with rectal bleed and rectal stricture as since on colonoscopy Plan: - Barium enema imaging ordered - Surgery has been consulted - advance diet as tolerated - Follow up path Further recs per Dr. Enrike Tiwari, PGY3
--- NOTE | 2019-02-12 12:25 | CP.PCM.CON ---
<Ian Tiwari - Last Filed: 02/13/19 16:16> History of Present Illness - History of Present Illness History of Present Illness: SURGERY CONSULT NOTE FOR DR. JENKINS Reason: Rectal stricture 78M presented to hospital originally for dizziness and weakness, found to have anemia 2/2 GI bleed. Patient has received 3 total PRBC transfusions during this admission. He was able to under go colonoscopy on 02/11 which found a rectal stricture unable to be traversed. Biopsies were taken. Patient admits to mild abdominal pain, denies nausea or vomiting. No blood per rectum since colonoscopy . No sign of obstruction, Patient passing flatus and has been having BMs. PMH: Ulcerative colitis, bladder cancer, dementia, Pre-Diabetes, Cerebrovascular accident 2007, CKD PSH: Left nephrectomy Allergies: Penicillins Past Patient History - Past Medical History & Family History Past Medical History?: Yes Past Family History: Reviewed and not pertinent - Past Social History Smoking Status: Never Smoked Chewing Tobacco Use: No Cigar Use: No Alcohol: None Drugs: Denies Home Situation {Lives}: Other - CARDIAC Hx Cardiac Disorders: Yes Hx Hypercholesterolemia: Yes Hx Hypertension: Yes - PULMONARY Hx Respiratory Disorders: No - NEUROLOGICAL Hx Neurological Disorder: Yes Hx Dementia: Yes Hx Transient Ischemic Attacks (TIA): Yes - HEENT Hx HEENT Problems: No - RENAL Hx Chronic Kidney Disease: No - ENDOCRINE/METABOLIC Hx Endocrine Disorders: Yes Hx Diabetes Mellitus Type 2: Yes - HEMATOLOGICAL/ONCOLOGICAL Hx Blood Disorders: Yes Hx Anemia: Yes Hx Human Immunodeficiency Virus (HIV): No - INTEGUMENTARY Hx Dermatological Problems: No - MUSCULOSKELETAL/RHEUMATOLOGICAL Hx Musculoskeletal Disorders: Yes Hx Falls: Yes (4 months) Hx Gout: Yes Hx Unsteady Gait: Yes (post CVA) - GASTROINTESTINAL Hx Gastrointestinal Disorders: Yes Hx Colitis: Yes (chronic) Hx Gastroesophageal Reflux: Yes HX Swallowing Problems: Yes (current complaint) - GENITOURINARY/GYNECOLOGICAL Hx Genitourinary Disorders: Yes Hx Bladder Cancer: Yes Hx Hematuria: Yes Other/Comment: HX: URINARY FREQUENCY - PSYCHIATRIC Hx Psychophysiologic Disorder: No Hx Substance Use: No - SURGICAL HISTORY Hx Surgeries: Yes Other/Comment: HX: BLADDER CANCER TURBT. HX: NEPHROURETERECTOMY 2014. HX: CYSTOSCOPY WITH BLADDER BIOPSY AND FULGURATION(08/20/18) - ANESTHESIA Hx Anesthesia: Yes Hx Anesthesia Reactions: No Hx Malignant Hyperthermia: No Meds Allergies/Adverse Reactions: Allergies Allergy/AdvReac Type Severity Reaction Status Date / Time Penicillins Allergy RASH Verified 01/28/19 13:34 - Medications Medications: Current Medications Acetaminophen (Tylenol 325mg Tab) 650 mg PO Q6 PRN PRN Reason: Pain, Mild (1-3) Last Admin: 02/12/19 09:52 Dose: 650 mg Atorvastatin Calcium (Lipitor) 40 mg PO DAILY [facility] Last Admin: 02/11/19 17:54 Dose: 40 mg Benzocaine/Menthol (Cepacol Sore Throat) 1 alysa PO Q3 PRN PRN Reason: Sore Throat Dextrose (Dextrose 50% Inj) 0 ml IV STAT PRN; Protocol PRN Reason: Hypoglycemia Protocol Last Admin: 02/06/19 05:35 Dose: 25 ml Dextrose (Glutose 15) 0 gm PO ONCE PRN; Protocol PRN Reason: Hypoglycemia Protocol Dimethicone (Proshield Plus Skin Protectant) 1 applic TOP Q8 PRN PRN Reason: derm Last Admin: 02/11/19 08:29 Dose: 1 applic Ergocalciferol (Drisdol 50,000 Intl Units Cap) 1 cap PO FR [facility] Last Admin: 02/08/19 16:12 Dose: 1 cap Fluticasone Propionate (Flonase) 2 spr PRIYA DAILY [facility] Last Admin: 02/12/19 09:56 Dose: 2 spr Glucagon (Glucagen Diagnostic Kit) 0 mg IM STAT PRN; Protocol PRN Reason: Hypoglycemia Protocol Iron Sucrose 100 mg/ Sodium (Chloride) 105 mls @ 105 mls/hr IVPB DAILY [facility] Last Admin: 02/12/19 12:07 Dose: 105 mls/hr Lactated Ringer's (Lactated Ringer's) 1,000 mls @ 60 mls/hr IV .[id number] [facility] Last Admin: 02/12/19 09:57 Dose: 60 mls/hr Insulin Human Regular (Humulin R) 0 units SC ACHS [facility]; Protocol Last Admin: 02/12/19 08:15 Dose: Not Given Loratadine (Claritin) 10 mg PO DAILY [facility] Last Admin: 02/11/19 11:08 Dose: Not Given Memantine (Namenda) 10 mg PO BID [facility] Last Admin: 02/12/19 09:55 Dose: Not Given Mesalamine (Rowasa Enema) 4 gm RC [facility] Last Admin: 02/11/19 21:26 Dose: Not Given Methylprednisolone (Solu-Medrol) 20 mg IVP Q12H [facility] Last Admin: 02/12/19 09:55 Dose: 20 mg Metoprolol Succinate (Toprol Xl) 25 mg PO Q12 [facility] Last Admin: 02/12/19 09:52 Dose: Not Given Sennosides (Senokot Tab) 17.2 mg PO [facility] Last Admin: 02/11/19 21:26 Dose: 17.2 mg Sitagliptin Phosphate (Januvia) 25 mg PO DAILY [facility] Last Admin: 02/11/19 08:28 Dose: Not Given Sucralfate (Carafate Oral Susp) 1 gm PO QID [facility] Last Admin: 02/12/19 09:55 Dose: Not Given Tamsulosin HCl (Flomax) 0.4 mg PO DAILY [facility] Last Admin: 02/11/19 17:53 Dose: 0.4 mg Physical Exam - Constitutional Appears: Non-toxic, No Acute Distress - Eye Exam Eye Exam: EOMI, PERRL - ENT Exam ENT Exam: Mucous Membranes Moist - Respiratory Exam Respiratory Exam: Clear to Auscultation Bilateral, NORMAL BREATHING PATTERN - Cardiovascular Exam Cardiovascular Exam: REGULAR RHYTHM, +S1, +S2 - GI/Abdominal Exam GI & Abdominal Exam: Soft, Tenderness (mild diffuse). absent: Distended, Firm, Guarding, Rebound, Rigid - Extremities Exam Extremities exam: Negative for: pedal edema, tenderness - Neurological Exam Neurological exam: Alert - Psychiatric Exam Psychiatric exam: Normal Affect, Normal Mood - Skin Skin Exam: Dry, Intact, Normal Color, Warm Results - Vital Signs Recent Vital Signs: Last Vital Signs Temp 98.8 F 02/12/19 11:05 Pulse 132 H 02/12/19 11:05 Resp 20 02/12/19 11:05 BP 87/46 L 02/12/19 11:05 Pulse Ox 95 02/12/19 11:05 - Labs Result Diagrams: 02/13/19 12:25 02/13/19 12:25 Labs: Laboratory Results - last 24 hr 02/11/19 02/11/19 02/11/19 10:50 13:23 16:48 WBC RBC Hgb Hct MCV MCH MCHC RDW Plt Count Sodium Potassium Chloride Carbon Dioxide Anion Gap BUN Creatinine Est GFR ( Amer) Est GFR (Non-Af Amer) POC Glucose (mg/dL) 101 95 179 H Random Glucose Calcium Magnesium 02/11/19 02/12/19 02/12/19 21:15 05:33 06:05 WBC 7.1 RBC 4.17 L Hgb 10.9 L Hct 34.5 L MCV 82.9 MCH 26.2 L MCHC 31.6 L RDW 22.5 H Plt Count 417 H Sodium Potassium Chloride Carbon Dioxide Anion Gap BUN Creatinine Est GFR ( Amer) Est GFR (Non-Af Amer) POC Glucose (mg/dL) 118 H 130 H Random Glucose Calcium Magnesium 02/12/19 06:05 WBC RBC Hgb Hct MCV MCH MCHC RDW Plt Count Sodium 141 Potassium 3.7 Chloride 113 H Carbon Dioxide 19 L Anion Gap 13 BUN 21 H Creatinine 1.6 H Est GFR ( Amer) 51 Est GFR (Non-Af Amer) 42 POC Glucose (mg/dL) Random Glucose 117 H Calcium 7.5 L Magnesium 2.3 Assessment & Plan - Assessment and Plan (Free Text) Assessment: 78M with GI bleed and rectal stricture, unobstructed Plan: Supplemental Iron Monitor labs Diet as tolerated Barium enema to be done today, await findings Await pathology from colonoscopy Poor surgical candidate Further recs discuss with Dr. Radha Tiwari, PGY3 <Jp Jenkins N - Last Filed: 02/18/19 17:47> Meds - Medications Medications: Current Medications Acetaminophen (Tylenol 325mg Tab) 650 mg PO Q6 PRN PRN Reason: Pain, Mild (1-3) Last Admin: 02/13/19 10:38 Dose: 650 mg Atorvastatin Calcium (Lipitor) 40 mg PO DAILY [facility] Last Admin: 02/18/19 09:39 Dose: Not Given Benzocaine/Menthol (Cepacol Sore Throat) 1 alysa PO Q3 PRN PRN Reason: Sore Throat Dextrose (Dextrose 50% Inj) 0 ml IV STAT PRN; Protocol PRN Reason: Hypoglycemia Protocol Last Admin: 02/06/19 05:35 Dose: 25 ml Dextrose (Glutose 15) 0 gm PO ONCE PRN; Protocol PRN Reason: Hypoglycemia Protocol Digoxin (Lanoxin) 0.125 mg IVP DAILY [facility] Last Admin: 02/18/19 09:44 Dose: 0.125 mg Dimethicone (Proshield Plus Skin Protectant) 1 applic TOP Q8 PRN PRN Reason: derm Last Admin: 02/14/19 09:50 Dose: 1 applic Ergocalciferol (Drisdol 50,000 Intl Units Cap) 1 cap PO FR [facility] Last Admin: 02/15/19 16:47 Dose: Not Given Fluticasone Propionate (Flonase) 2 spr PRIYA DAILY [facility] Last Admin: 02/18/19 09:36 Dose: 2 spr Glucagon (Glucagen Diagnostic Kit) 0 mg IM STAT PRN; Protocol PRN Reason: Hypoglycemia Protocol Iron Sucrose 100 mg/ Sodium (Chloride) 105 mls @ 105 mls/hr IVPB DAILY [facility] Last Admin: 02/12/19 12:07 Dose: 105 mls/hr Sodium Chloride (Sodium Chloride 0.9%) 1,000 mls @ 75 mls/hr IV .[id number] [facility] Last Admin: 02/17/19 21:38 Dose: 75 mls/hr Insulin Human Regular (Humulin R) 0 units SC ACHS [facility]; Protocol Last Admin: 02/18/19 11:54 Dose: Not Given Memantine (Namenda) 10 mg PO BID [facility] Last Admin: 02/18/19 09:40 Dose: Not Given Mesalamine (Rowasa Enema) 4 gm RC [facility] Last Admin: 02/17/19 21:36 Dose: Not Given Methylprednisolone (Solu-Medrol) 10 mg IVP BID [facility] Last Admin: 02/18/19 09:40 Dose: 10 mg Metoprolol Tartrate (Lopressor) 2.5 mg IVP Q3 [facility] Last Admin: 02/18/19 12:48 Dose: 2.5 mg Sennosides (Senokot Tab) 17.2 mg PO HS [facility] Last Admin: 02/17/19 21:28 Dose: 17.2 mg Sitagliptin Phosphate (Januvia) 25 mg PO DAILY [facility] Last Admin: 02/18/19 09:39 Dose: Not Given Sucralfate (Carafate Oral Susp) 1 gm PO QID [facility] Last Admin: 02/18/19 13:18 Dose: 1 gm Tamsulosin HCl (Flomax) 0.4 mg PO DAILY [facility] Last Admin: 02/18/19 09:34 Dose: Not Given Results - Vital Signs Recent Vital Signs: Last Vital Signs Temp 97.5 F L 02/18/19 08:46 Pulse 100 H 02/18/19 12:48 Resp 20 02/18/19 08:46 BP 128/74 02/18/19 12:48 Pulse Ox 98 02/18/19 11:02 - Labs Result Diagrams: 02/18/19 04:45 02/18/19 04:45 Labs: Laboratory Results - last 24 hr 02/17/19 02/18/19 02/18/19 22:07 04:45 04:45 WBC 5.6 RBC 3.69 L Hgb 9.6 L Hct 30.6 L MCV 82.9 MCH 26.1 L MCHC 31.5 L RDW 22.2 H Plt Count 209 MPV 9.5 Neut % (Auto) 70.1 Lymph % (Auto) 26.6 Jerome % (Auto) 3.3 Eos % (Auto) 0.0 Baso % (Auto) 0.0 Neut # (Auto) 3.9 Lymph # (Auto) 1.5 Jerome # (Auto) 0.2 Eos # (Auto) 0.0 Baso # (Auto) 0.0 Sodium 140 Potassium 3.2 L Chloride 111 H Carbon Dioxide 22 Anion Gap 10 BUN 12 Creatinine 1.1 Est GFR ( Amer) > 60 Est GFR (Non-Af Amer) > 60 POC Glucose (mg/dL) 155 H Random Glucose 110 Calcium 7.2 L Total Bilirubin 0.4 AST 22 ALT 32 Alkaline Phosphatase 72 Total Protein 4.8 L Albumin 2.1 L Globulin 2.7 Albumin/Globulin Ratio 0.8 L Blood Type Antibody Screen Crossmatch BBK History Checked 02/18/19 02/18/19 02/18/19 05:38 11:07 12:15 WBC RBC Hgb Hct MCV MCH MCHC RDW Plt Count MPV Neut % (Auto) Lymph % (Auto) Jerome % (Auto) Eos % (Auto) Baso % (Auto) Neut # (Auto) Lymph # (Auto) Jerome # (Auto) Eos # (Auto) Baso # (Auto) Sodium Potassium Chloride Carbon Dioxide Anion Gap BUN Creatinine Est GFR ( Amer) Est GFR (Non-Af Amer) POC Glucose (mg/dL) 127 H 94 Random Glucose Calcium Total Bilirubin AST ALT Alkaline Phosphatase Total Protein Albumin Globulin Albumin/Globulin Ratio Blood Type O POSITIVE Antibody Screen Negative Crossmatch See Detail BBK History Checked Patient has bt Assessment & Plan - Assessment and Plan (Free Text) Plan: All medical record entries made by the resident were at my direction. I have reviewed the chart and agree that the record accurately reflects my personal performance of the history, physical exam, and medical decision making.
[2019-02-12] MEDS ORDERED: Chlorhexidine Gluconate 1 APPL/PKT TP ONE (13:08)
--- NOTE | 2019-02-12 13:24 | CT ---
Date of service: 02/12/2019 PROCEDURE: CT HEAD WITHOUT CONTRAST. HISTORY: mild headache COMPARISON: Unenhanced head CT 01/16/2019 and brain MRI without contrast 01/17/2019. TECHNIQUE: Axial computed tomography images were obtained through the head/brain without intravenous contrast. Radiation dose: Total exam DLP = 767.18 mGy-cm. This CT exam was performed using one or more of the following dose reduction techniques: Automated exposure control, adjustment of the mA and/or kV according to patient size, and/or use of iterative reconstruction technique. FINDINGS: HEMORRHAGE: No intracranial hemorrhage. BRAIN: Small chronic lobar infarctions medial bilateral occipital lobes identified, right greater than left. Two chronic lacunes are seen at the left basal ganglia. Good corticomedullary differentiation is seen. Reiterated diffuse cerebral atrophy and chronic microangiopathy. No suspicious extra-axial fluid collection is identified and the midline brain anatomy appears grossly nonfocal as imaged. No mass effect identified. VENTRICLES: Unremarkable. No hydrocephalus. CALVARIUM: Unremarkable. PARANASAL SINUSES: Unremarkable as visualized. No significant inflammatory changes. MASTOID AIR CELLS: Unremarkable as visualized. No inflammatory changes. OTHER FINDINGS: None. IMPRESSION: Stable head CT exam with no definitive acute intracranial findings by standard CT criteria. Bilateral chronic occipital lobe infarctions identified once again as well as left basal ganglia chronic lacunes. Stable age related neuro degenerative changes identified.
[2019-02-12] MEDS: Proshield Plus GEL TOP PRN (19:50)
[2019-02-13] MEDS: Lactated Ringer's 1,000 ML IV SCH (01:00)
[2019-02-13] MEDS: Metoprolol Succinate 25 mg XL Tab PO SCH ×2 (06:18→10:09)
--- NOTE | 2019-02-13 06:33 | CP.PCM.PN ---
<Jesus Collier - Last Filed: 02/13/19 10:40> Subjective - Date & Time of Evaluation Date of Evaluation: 02/13/19 Time of Evaluation: 06:33 - Subjective Subjective: Pt seen and examined at bedside with attending, Dr. Mathew. No acute events overnight. Pt occasionally with tachycardia. tolerating PO diet. Regular dark stools, no bright red blood per rectum. denies abdominal pain. Objective - Vital Signs/Intake and Output Vital Signs (last 24 hours): Temp Pulse Resp BP Pulse Ox 97.6 F 130 H 18 114/74 97 02/13/19 05:05 02/13/19 06:18 02/13/19 05:05 02/13/19 06:18 02/13/19 05:05 - Medications Medications: Current Medications Acetaminophen (Tylenol 325mg Tab) 650 mg PO Q6 PRN PRN Reason: Pain, Mild (1-3) Last Admin: 02/12/19 09:52 Dose: 650 mg Atorvastatin Calcium (Lipitor) 40 mg PO DAILY [facility] Last Admin: 02/12/19 19:51 Dose: 40 mg Benzocaine/Menthol (Cepacol Sore Throat) 1 alysa PO Q3 PRN PRN Reason: Sore Throat Dextrose (Dextrose 50% Inj) 0 ml IV STAT PRN; Protocol PRN Reason: Hypoglycemia Protocol Last Admin: 02/06/19 05:35 Dose: 25 ml Dextrose (Glutose 15) 0 gm PO ONCE PRN; Protocol PRN Reason: Hypoglycemia Protocol Dimethicone (Proshield Plus Skin Protectant) 1 applic TOP Q8 PRN PRN Reason: derm Last Admin: 02/12/19 19:50 Dose: 1 applic Ergocalciferol (Drisdol 50,000 Intl Units Cap) 1 cap PO FR [facility] Last Admin: 02/08/19 16:12 Dose: 1 cap Fluticasone Propionate (Flonase) 2 spr PIRYA DAILY [facility] Last Admin: 02/12/19 09:56 Dose: 2 spr Glucagon (Glucagen Diagnostic Kit) 0 mg IM STAT PRN; Protocol PRN Reason: Hypoglycemia Protocol Iron Sucrose 100 mg/ Sodium (Chloride) 105 mls @ 105 mls/hr IVPB DAILY [facility] Last Admin: 02/12/19 12:07 Dose: 105 mls/hr Lactated Ringer's (Lactated Ringer's) 1,000 mls @ 60 mls/hr IV .[id number] [facility] Last Admin: 02/13/19 01:00 Dose: 60 mls/hr Insulin Human Regular (Humulin R) 0 units SC ACHS [facility]; Protocol Last Admin: 02/12/19 22:32 Dose: Not Given Loratadine (Claritin) 10 mg PO DAILY [facility] Last Admin: 02/12/19 09:46 Dose: Not Given Memantine (Namenda) 10 mg PO BID [facility] Last Admin: 02/12/19 19:50 Dose: 10 mg Mesalamine (Rowasa Enema) 4 gm RC [facility] Last Admin: 02/12/19 21:17 Dose: Not Given Methylprednisolone (Solu-Medrol) 20 mg IVP Q12H [facility] Last Admin: 02/12/19 21:18 Dose: 20 mg Metoprolol Succinate (Toprol Xl) 25 mg PO Q12 [facility] Last Admin: 02/13/19 06:18 Dose: 25 mg Sennosides (Senokot Tab) 17.2 mg PO [facility] Last Admin: 02/12/19 21:18 Dose: 17.2 mg Sitagliptin Phosphate (Januvia) 25 mg PO DAILY [facility] Last Admin: 02/12/19 09:48 Dose: Not Given Sucralfate (Carafate Oral Susp) 1 gm PO QID [facility] Last Admin: 02/12/19 21:16 Dose: Not Given Tamsulosin HCl (Flomax) 0.4 mg PO DAILY [facility] Last Admin: 02/12/19 09:46 Dose: Not Given - Labs Labs: 02/12/19 06:05 02/12/19 06:05 - Constitutional Appears: No Acute Distress - Eye Exam Eye Exam: EOMI - ENT Exam ENT Exam: Mucous Membranes Moist - Respiratory Exam Respiratory Exam: Clear to Ausculation Bilateral, NORMAL BREATHING PATTERN. absent: Wheezes - Cardiovascular Exam Cardiovascular Exam: Tachycardia (intermittent), Irregular Rhythm, +S1, +S2 - GI/Abdominal Exam GI & Abdominal Exam: Distended, Soft, Normal Bowel Sounds. absent: Tenderness - Extremities Exam Extremities Exam: absent: Calf Tenderness - Neurological Exam Neurological Exam: Alert, Awake - Psychiatric Exam Psychiatric exam: Normal Affect, Normal Mood Assessment and Plan (1) Ulcerative colitis, chronic Status: Chronic (2) CKD (chronic kidney disease) Status: Acute (3) Diabetes Status: Acute (4) Dementia Status: Acute (5) Gait instability Status: Acute (6) Anemia Status: Acute (7) HTN (hypertension) Status: Chronic (8) Afib Status: Acute - Assessment and Plan (Free Text) Assessment: 78 y/o male with PMH of Ulcerative colitis, HTN, Bladder Ca, Dementia, prediabetes and CVA in 2007 recently admitted to [facility] for evaluation and treatment of acute bloody diarrhea with R abdominal pain. CT evidence of left sided colitis and treated with Cipro and Flagyl for colitis and his GI bleed eventually resolved, though diarrhea has been persistent and chronic (Cdiff negative). He was found to have low hemoglobin levels that remained stable between 8 - 9. Subsequently during this admission he suffered an acute ischemic stroke for he was evaluated by neurology and cardiology and treated with dual antiplatelet therapy. He had acute kidney injury and hypernatremia which was resolved with IV fluid hydrations under management of diving coach. While in subacute rehab for rehabilitation, pt represented with bloody stools and matthew pping hemoglobin. Pt evaluated by Dr. Valero and team for dizziness and inability to fully engage in therapy. Admitted to tele. Plan: GI Bleed -GI Dr. Calvert: colonoscopy 02/11/2019: stricture with biopsy; barium enema yesterday --Bx rectum: focally active inflammation with crypt distortion and grandular epithelial reactive changes. No dysplasia or granulomas are seen. -Gen surg: Dr. Garcia: further recs appreciated -FOBT +; stool leukocytes: negative and fat: normal -ASA and plavix discontinued 2/2 GI bleed -IVF: D5 1/2 NS K 20 meq -c/w sucralfate -f/u barium enema report Anemia, chronic -H/H: 10.9/34.5; improving -s/p PRBC x 3 units transfused -s/p IV venofer -pt to start po iron -monitor for bleed, hgb level and vitals UC, chronic -GI Dr. Calvert -c/w Mesalamine Afib -new onset this admission -asx -on tele monitor -Occis2Bqxi score: 6 --rate control with meoprolol 25 mg P12 --CI to asa/plavix due to acute hx of active GI bleed -Cardiology Dr. Potts: further recs appreciated head trauma 2/2 fall -stitches x2 -pt reports headache 03/15 -ct head without: Stable head CT exam with no definitive acute intracranial findings by standard CT criteria. Bilateral chronic occipital lobe infarctions identified once again as well as left basal ganglia chronic lacunes. Stable age related neuro degenerative changes identified. -monitor vitals, progression, neuro deficits CKD -Stage 3 -acute on chronic kidney disease with solitary R kidney. -Nephrology: Dr. Boone consulted: recs appreciated Hypokalemia -resolved -3.7; per cardiology: keep at 4.5 -IVF: D5 1/2 NS K 20 meq -s/p K runs -f/u am labs HTN -controlled -c/w metoprolol DM -glucose controlled -c/w januvia -accuchecks -hypoglycemia protocol in place Hx of Acute CVA -Neuro: Dr. Sanchez; f/u neuro OP -c/w atorvastatin Dementia -c/w memantine -reorient as needed Esophagitis, acute -s/p Diflucan Rhinitis -c/w Fluticasone prn DVT/wound prophylaxis -scd (recent active GI bleed) -c/w Proshield Gait instability -PT/OT eval/treat -fall precautions Case and plan d/w Dr. Priyanka Collier MD PGY-2 <Gatito Mathew - Last Filed: 02/13/19 12:41> Objective - Vital Signs/Intake and Output Vital Signs (last 24 hours): Temp Pulse Resp BP Pulse Ox 97.6 F 82 18 111/73 95 02/13/19 12:00 02/13/19 12:00 02/13/19 12:00 02/13/19 12:00 02/13/19 12:00 - Medications Medications: Current Medications Acetaminophen (Tylenol 325mg Tab) 650 mg PO Q6 PRN PRN Reason: Pain, Mild (1-3) Last Admin: 02/13/19 10:38 Dose: 650 mg Atorvastatin Calcium (Lipitor) 40 mg PO DAILY [facility] Last Admin: 02/13/19 10:05 Dose: 40 mg Benzocaine/Menthol (Cepacol Sore Throat) 1 alysa PO Q3 PRN PRN Reason: Sore Throat Dextrose (Dextrose 50% Inj) 0 ml IV STAT PRN; Protocol PRN Reason: Hypoglycemia Protocol Last Admin: 02/06/19 05:35 Dose: 25 ml Dextrose (Glutose 15) 0 gm PO ONCE PRN; Protocol PRN Reason: Hypoglycemia Protocol Dimethicone (Proshield Plus Skin Protectant) 1 applic TOP Q8 PRN PRN Reason: derm Last Admin: 02/13/19 10:04 Dose: 1 applic Ergocalciferol (Drisdol 50,000 Intl Units Cap) 1 cap PO FR [facility] Last Admin: 02/08/19 16:12 Dose: 1 cap Fluticasone Propionate (Flonase) 2 spr PRIYA DAILY [facility] Last Admin: 02/13/19 10:07 Dose: 2 spr Glucagon (Glucagen Diagnostic Kit) 0 mg IM STAT PRN; Protocol PRN Reason: Hypoglycemia Protocol Iron Sucrose 100 mg/ Sodium (Chloride) 105 mls @ 105 mls/hr IVPB DAILY [facility] Last Admin: 02/12/19 12:07 Dose: 105 mls/hr Potassium Chloride/Dextrose/Sod Cl (Potassium Chl 20 Meq In D5-1/2ns) 1,000 mls @ 80 mls/hr IV .[id number] [facility] Stop: 02/14/19 09:54 Insulin Human Regular (Humulin R) 0 units SC ACHS [facility]; Protocol Last Admin: 02/13/19 08:07 Dose: Not Given Memantine (Namenda) 10 mg PO BID [facility] Last Admin: 02/13/19 10:05 Dose: 10 mg Mesalamine (Rowasa Enema) 4 gm RC HS [facility] Last Admin: 02/12/19 21:17 Dose: Not Given Methylprednisolone (Solu-Medrol) 20 mg IVP Q12H [facility] Last Admin: 02/13/19 10:05 Dose: 20 mg Metoprolol Succinate (Toprol Xl) 25 mg PO Q12 [facility] Last Admin: 02/13/19 10:09 Dose: Not Given Sennosides (Senokot Tab) 17.2 mg PO HS [facility] Last Admin: 02/12/19 21:18 Dose: 17.2 mg Sitagliptin Phosphate (Januvia) 25 mg PO DAILY [facility] Last Admin: 02/13/19 10:05 Dose: 25 mg Sucralfate (Carafate Oral Susp) 1 gm PO QID [facility] Last Admin: 02/13/19 09:33 Dose: 1 gm Tamsulosin HCl (Flomax) 0.4 mg PO DAILY [facility] Last Admin: 02/13/19 10:07 Dose: 0.4 mg - Labs Labs: 02/12/19 06:05 02/12/19 06:05 Assessment and Plan - Assessment and Plan (Free Text) Plan: Patient was personally seen and examined by me in rounds with residents. Available labs and diagnostic data reviewed. Case, Patient's condition and management plan discussed with residents in rounds. Agree with resident's progress note. Plan: As ordered.
[2019-02-13] MEDS: Insulin Regular 100 units/ml SC SCH ×4 (08:07→21:29)
[2019-02-13] MEDS: Sucralfate 1 gm/10 ml Oral Susp UD PO SCH ×4 (09:33→22:09)
[2019-02-13] MEDS ORDERED: Lactated Ringer's 1,000 ML IV SCH (09:53)
[2019-02-13] MEDS ORDERED: Metoprolol 1 mg/ml Inj IVP ONE (10:00)
[2019-02-13] MEDS ORDERED: Potassium Ch 20mEq in D5-1/2NS 1,000 ML IV SCH (10:00)
[2019-02-13] MEDS: Proshield Plus GEL TOP PRN (10:04)
[2019-02-13] MEDS: MethylPREDNISolone 40 mg Vial IVP SCH (10:05)
[2019-02-13] MEDS ORDERED: Lidocaine Hydrochloride 1% 10 ML ONE (10:57)
--- NOTE | 2019-02-13 11:45 | PCM.SURG1 ---
Surgeon's Initial Post Op Note - Surgeon's Notes Surgeon: Celestine Bernal MD Patient Account Specialist: NONE Type of Anesthesia: Local Pre-Operative Diagnosis: Poor venous access Operative Findings: US showed a patent right basilic vein Post-Operative Diagnosis: Poor venous access Operation Performed: Single lumen picc placement right arm, 35 CM Specimen/Specimens Removed: None Estimated Blood Loss: EBL {In ML}: 2 Blood Products Given: N/A Drains Used: No Drains Post-Op Condition: Fair Date of Surgery/Procedure: 02/13/19 Time of Surgery/Procedure: 11:40
[2019-02-13 12:43] LABS: HEMOGLOBIN 9.3 g/dL (12.0-18.0); MEAN CELL VOLUME 83.5 fl (80.0-94.0); MEAN CORPUSCULAR HEMOGLOBIN 26.4 pg (27.0-31.0); MEAN CORPUSCULAR HGB CONC 31.7 g/dL (33.0-37.0); RBC 3.54 Mil/uL (4.40-5.90); RED CELL DISTRIBUTION WIDTH 22.8 % (11.5-14.5); WHITE BLOOD COUNT 7.7 K/uL (4.8-10.8)
--- NOTE | 2019-02-13 12:51 | CP.PCM.PN ---
Subjective - Date & Time of Evaluation Date of Evaluation: 02/13/19 Time of Evaluation: 12:49 - Subjective Subjective: GI NOTE FOR DR. CLARKE 78M seen and examined at bedside. Patient doing well, unwent PICCline placement today with IR. Continues to pass gas and have bowel movements. Objective - Vital Signs/Intake and Output Vital Signs (last 24 hours): Temp Pulse Resp BP Pulse Ox 97.6 F 82 18 111/73 95 02/13/19 12:00 02/13/19 12:00 02/13/19 12:00 02/13/19 12:00 02/13/19 12:00 - Medications Medications: Current Medications Acetaminophen (Tylenol 325mg Tab) 650 mg PO Q6 PRN PRN Reason: Pain, Mild (1-3) Last Admin: 02/13/19 10:38 Dose: 650 mg Atorvastatin Calcium (Lipitor) 40 mg PO DAILY [facility] Last Admin: 02/13/19 10:05 Dose: 40 mg Benzocaine/Menthol (Cepacol Sore Throat) 1 alysa PO Q3 PRN PRN Reason: Sore Throat Dextrose (Dextrose 50% Inj) 0 ml IV STAT PRN; Protocol PRN Reason: Hypoglycemia Protocol Last Admin: 02/06/19 05:35 Dose: 25 ml Dextrose (Glutose 15) 0 gm PO ONCE PRN; Protocol PRN Reason: Hypoglycemia Protocol Dimethicone (Proshield Plus Skin Protectant) 1 applic TOP Q8 PRN PRN Reason: derm Last Admin: 02/13/19 10:04 Dose: 1 applic Ergocalciferol (Drisdol 50,000 Intl Units Cap) 1 cap PO FR [facility] Last Admin: 02/08/19 16:12 Dose: 1 cap Fluticasone Propionate (Flonase) 2 spr PRIYA DAILY [facility] Last Admin: 02/13/19 10:07 Dose: 2 spr Glucagon (Glucagen Diagnostic Kit) 0 mg IM STAT PRN; Protocol PRN Reason: Hypoglycemia Protocol Iron Sucrose 100 mg/ Sodium (Chloride) 105 mls @ 105 mls/hr IVPB DAILY [facility] Last Admin: 02/12/19 12:07 Dose: 105 mls/hr Potassium Chloride/Dextrose/Sod Cl (Potassium Chl 20 Meq In D5-1/2ns) 1,000 mls @ 80 mls/hr IV .[id number] [facility] Stop: 02/14/19 09:54 Insulin Human Regular (Humulin R) 0 units SC ACHS [facility]; Protocol Last Admin: 02/13/19 08:07 Dose: Not Given Memantine (Namenda) 10 mg PO BID [facility] Last Admin: 02/13/19 10:05 Dose: 10 mg Mesalamine (Rowasa Enema) 4 gm RC HS [facility] Last Admin: 02/12/19 21:17 Dose: Not Given Methylprednisolone (Solu-Medrol) 20 mg IVP Q12H [facility] Last Admin: 02/13/19 10:05 Dose: 20 mg Metoprolol Succinate (Toprol Xl) 25 mg PO Q12 [facility] Last Admin: 02/13/19 10:09 Dose: Not Given Sennosides (Senokot Tab) 17.2 mg PO HS [facility] Last Admin: 02/12/19 21:18 Dose: 17.2 mg Sitagliptin Phosphate (Januvia) 25 mg PO DAILY [facility] Last Admin: 02/13/19 10:05 Dose: 25 mg Sucralfate (Carafate Oral Susp) 1 gm PO QID [facility] Last Admin: 02/13/19 09:33 Dose: 1 gm Tamsulosin HCl (Flomax) 0.4 mg PO DAILY [facility] Last Admin: 02/13/19 10:07 Dose: 0.4 mg - Labs Labs: 02/12/19 06:05 02/12/19 06:05 - Constitutional Appears: Non-toxic, No Acute Distress - Respiratory Exam Respiratory Exam: Clear to Ausculation Bilateral, Respiratory Distress - Cardiovascular Exam Cardiovascular Exam: REGULAR RHYTHM, +S1, +S2 - GI/Abdominal Exam GI & Abdominal Exam: Soft. absent: Firm, Guarding, Rigid, Tenderness, Rebound - Neurological Exam Neurological Exam: Alert, Awake Assessment and Plan - Assessment and Plan (Free Text) Assessment: 78M with GI bleed and rectal stricture as seen on colonoscopy Plan: - Barium enema performed yesterday, awaiting official report - Pathology negative for dysplasia or malignancy - General surgery on board - Continue home meds for UC Further recs discuss with Dr. Enrike Tiwari, PGY3
[2019-02-13 13:05] LABS: BLOOD UREA NITROGEN 19 mg/dl (9-20); CALCIUM 6.4 mg/dL (8.4-10.2); GFR NON-AFRICAN AMERICAN 53
--- NOTE | 2019-02-13 13:39 | CP.PCM.PN ---
<Eliot Adners - Last Filed: 02/13/19 13:37> Subjective - Date & Time of Evaluation Date of Evaluation: 02/13/19 Time of Evaluation: 13:37 - Subjective Subjective: Surgery: Dr. Rivera Patient + flatus, +BM. s/p PICC line placement. No n/v/f/c. Objective - Vital Signs/Intake and Output Vital Signs (last 24 hours): Temp Pulse Resp BP Pulse Ox 97.6 F 82 18 111/73 95 02/13/19 12:00 02/13/19 12:00 02/13/19 12:00 02/13/19 12:00 02/13/19 12:00 - Medications Medications: Current Medications Acetaminophen (Tylenol 325mg Tab) 650 mg PO Q6 PRN PRN Reason: Pain, Mild (1-3) Last Admin: 02/13/19 10:38 Dose: 650 mg Atorvastatin Calcium (Lipitor) 40 mg PO DAILY [facility] Last Admin: 02/13/19 10:05 Dose: 40 mg Benzocaine/Menthol (Cepacol Sore Throat) 1 alysa PO Q3 PRN PRN Reason: Sore Throat Dextrose (Dextrose 50% Inj) 0 ml IV STAT PRN; Protocol PRN Reason: Hypoglycemia Protocol Last Admin: 02/06/19 05:35 Dose: 25 ml Dextrose (Glutose 15) 0 gm PO ONCE PRN; Protocol PRN Reason: Hypoglycemia Protocol Dimethicone (Proshield Plus Skin Protectant) 1 applic TOP Q8 PRN PRN Reason: derm Last Admin: 02/13/19 10:04 Dose: 1 applic Ergocalciferol (Drisdol 50,000 Intl Units Cap) 1 cap PO FR [facility] Last Admin: 02/08/19 16:12 Dose: 1 cap Fluticasone Propionate (Flonase) 2 spr PRIYA DAILY [facility] Last Admin: 02/13/19 10:07 Dose: 2 spr Glucagon (Glucagen Diagnostic Kit) 0 mg IM STAT PRN; Protocol PRN Reason: Hypoglycemia Protocol Iron Sucrose 100 mg/ Sodium (Chloride) 105 mls @ 105 mls/hr IVPB DAILY [facility] Last Admin: 02/12/19 12:07 Dose: 105 mls/hr Potassium Chloride/Dextrose/Sod Cl (Potassium Chl 20 Meq In D5-1/2ns) 1,000 mls @ 80 mls/hr IV .[id number] [facility] Stop: 02/14/19 09:54 Insulin Human Regular (Humulin R) 0 units SC ACHS [facility]; Protocol Last Admin: 02/13/19 08:07 Dose: Not Given Memantine (Namenda) 10 mg PO BID [facility] Last Admin: 02/13/19 10:05 Dose: 10 mg Mesalamine (Rowasa Enema) 4 gm RC [facility] Last Admin: 02/12/19 21:17 Dose: Not Given Methylprednisolone (Solu-Medrol) 20 mg IVP Q12H [facility] Last Admin: 02/13/19 10:05 Dose: 20 mg Metoprolol Succinate (Toprol Xl) 25 mg PO Q12 [facility] Last Admin: 02/13/19 10:09 Dose: Not Given Sennosides (Senokot Tab) 17.2 mg PO [facility] Last Admin: 02/12/19 21:18 Dose: 17.2 mg Sitagliptin Phosphate (Januvia) 25 mg PO DAILY [facility] Last Admin: 02/13/19 10:05 Dose: 25 mg Sucralfate (Carafate Oral Susp) 1 gm PO QID [facility] Last Admin: 02/13/19 09:33 Dose: 1 gm Tamsulosin HCl (Flomax) 0.4 mg PO DAILY [facility] Last Admin: 02/13/19 10:07 Dose: 0.4 mg - Labs Labs: 02/13/19 12:25 02/13/19 12:25 - Constitutional Appears: Non-toxic, No Acute Distress - Head Exam Head Exam: ATRAUMATIC, NORMOCEPHALIC - Eye Exam Eye Exam: Normal appearance - ENT Exam ENT Exam: Mucous Membranes Moist - Respiratory Exam Respiratory Exam: absent: Respiratory Distress - Cardiovascular Exam Cardiovascular Exam: REGULAR RHYTHM - GI/Abdominal Exam GI & Abdominal Exam: Soft. absent: Distended, Guarding, Tenderness Assessment and Plan - Assessment and Plan (Free Text) Assessment: 78 y/o male with UC and rectal stricture s/p scope with biopsy Plan: -pathology neg for malignancy -patient not clinically obstructed -cont bowel regimen to prevent constipation -GI f/u -no surgical intervention at this time, reconsult prn -d/w Dr. Alfaro PGY4 <Jp Del Cid N - Last Filed: 02/18/19 17:36> Objective - Vital Signs/Intake and Output Vital Signs (last 24 hours): Temp Pulse Resp BP Pulse Ox 97.5 F L 100 H 20 128/74 98 02/18/19 08:46 02/18/19 12:48 02/18/19 08:46 02/18/19 12:48 02/18/19 11:02 Intake and Output: 02/18/19 02/18/19 06:59 18:59 Intake Total 325 Balance 325 - Medications Medications: Current Medications Acetaminophen (Tylenol 325mg Tab) 650 mg PO Q6 PRN PRN Reason: Pain, Mild (1-3) Last Admin: 02/13/19 10:38 Dose: 650 mg Atorvastatin Calcium (Lipitor) 40 mg PO DAILY [facility] Last Admin: 02/18/19 09:39 Dose: Not Given Benzocaine/Menthol (Cepacol Sore Throat) 1 alysa PO Q3 PRN PRN Reason: Sore Throat Dextrose (Dextrose 50% Inj) 0 ml IV STAT PRN; Protocol PRN Reason: Hypoglycemia Protocol Last Admin: 02/06/19 05:35 Dose: 25 ml Dextrose (Glutose 15) 0 gm PO ONCE PRN; Protocol PRN Reason: Hypoglycemia Protocol Digoxin (Lanoxin) 0.125 mg IVP DAILY [facility] Last Admin: 02/18/19 09:44 Dose: 0.125 mg Dimethicone (Proshield Plus Skin Protectant) 1 applic TOP Q8 PRN PRN Reason: derm Last Admin: 02/14/19 09:50 Dose: 1 applic Ergocalciferol (Drisdol 50,000 Intl Units Cap) 1 cap PO FR [facility] Last Admin: 02/15/19 16:47 Dose: Not Given Fluticasone Propionate (Flonase) 2 spr PRIYA DAILY [facility] Last Admin: 02/18/19 09:36 Dose: 2 spr Glucagon (Glucagen Diagnostic Kit) 0 mg IM STAT PRN; Protocol PRN Reason: Hypoglycemia Protocol Iron Sucrose 100 mg/ Sodium (Chloride) 105 mls @ 105 mls/hr IVPB DAILY [facility] Last Admin: 02/12/19 12:07 Dose: 105 mls/hr Sodium Chloride (Sodium Chloride 0.9%) 1,000 mls @ 75 mls/hr IV .[id number] [facility] Last Admin: 02/17/19 21:38 Dose: 75 mls/hr Insulin Human Regular (Humulin R) 0 units SC ACHS [facility]; Protocol Last Admin: 02/18/19 11:54 Dose: Not Given Memantine (Namenda) 10 mg PO BID [facility] Last Admin: 02/18/19 09:40 Dose: Not Given Mesalamine (Rowasa Enema) 4 gm RC HS [facility] Last Admin: 02/17/19 21:36 Dose: Not Given Methylprednisolone (Solu-Medrol) 10 mg IVP BID [facility] Last Admin: 02/18/19 09:40 Dose: 10 mg Metoprolol Tartrate (Lopressor) 2.5 mg IVP Q3 [facility] Last Admin: 02/18/19 12:48 Dose: 2.5 mg Sennosides (Senokot Tab) 17.2 mg PO HS [facility] Last Admin: 02/17/19 21:28 Dose: 17.2 mg Sitagliptin Phosphate (Januvia) 25 mg PO DAILY [facility] Last Admin: 02/18/19 09:39 Dose: Not Given Sucralfate (Carafate Oral Susp) 1 gm PO QID [facility] Last Admin: 02/18/19 13:18 Dose: 1 gm Tamsulosin HCl (Flomax) 0.4 mg PO DAILY [facility] Last Admin: 02/18/19 09:34 Dose: Not Given - Labs Labs: 02/18/19 04:45 02/18/19 04:45 PT 12.8 Seconds (9.8-13.1) 02/14/19 10:00 INR 1.1 02/14/19 10:00 APTT 30.6 Seconds (25.6-37.1) 02/14/19 10:00 Assessment and Plan - Assessment and Plan (Free Text) Plan: All medical record entries made by the resident were at my direction. I have reviewed the chart and agree that the record accurately reflects my personal performance of the history, physical exam, and medical decision making.
--- NOTE | 2019-02-13 14:54 | RAD ---
Date of service: 02/12/2019 PROCEDURE: BARIUM ENEMA HISTORY: rectal stricture on colonoscopy COMPARISON: Abdomen pelvis CT without contrast 01/15/2019. TECHNIQUE: A barium enema was performed under single contrast technique with the entire colon identified from rectum to cecum including the appendix. Multiple overhead preliminary radiographs and spot fluoroscopic images of been submitted for interpretation, including preliminary radiograph. 4 min of fluoro time was utilized with a total radiation dose of 263.14 mGy. FINDINGS: Plain radiograph demonstrates gas distending apparent transverse large-bowel loops in the central abdomen up to 11.4 cm otherwise unremarkable gas within small and large bowel loops. Radiation seed implants are identified in the region of the prostate gland. Entire colon was at least partially opacified with oral contrast from the rectum to cecum with trace reflux into the appendix. There is a high-grade stricture of the rectosigmoid junction or high rectum suspicious for benign or malignant stricture. There is only slight irregularity related to the mucosa surrounding this stricture. Review of the CT fails to demonstrate large soft tissue lesion or apparent gross mural thickening here and there is no extrinsic lesion. The lack of oral contrast administered in this CT limits evaluation of the lumen ultimately however. Administering an adequate volume of barium was difficult in this patient as he attempted to expel the rectal tube/bulb numerous times and single density barium continuously inspissated around the bulb. As result opacification of the majority of the transverse colon which is distended with gas. The mucosal pattern is irregular at the hepatic flexure through sigmoid colon in multiple projections suspicious for potential segmental colitis which corresponds well with prior CT. Clinically correlate further. Images of the ascending colon are unremarkable as well as the cecum. IMPRESSION: 1. Severe stricture at the rectosigmoid junction or high rectum intrinsic to this segment of bowel. No extrinsic lesion is seen in prior CT at this level. Angulation of the stricture also argues against extrinsic lesion. Consider benign or malignant causes though no overt mass is seen on prior CT. No prominent mucosal or submucosal lesion appreciable in the current exam either. 2. Segmental colitis affecting majority of left hemicolon. 3. Nonspecific persistent dilatation of transverse colon.
[2019-02-13] MEDS ORDERED: Potassium Chloride 20 mEq ER Tab PO ONE (15:03)
[2019-02-13] MEDS ORDERED: Magnesium Sulfate 1 gm in D5W 1 GM/100 ML BAG IVPB ONE (16:06)
--- NOTE | 2019-02-13 17:14 | CP.PCM.PN ---
Subjective - Date & Time of Evaluation Date of Evaluation: 02/13/19 Time of Evaluation: 17:13 Objective - Vital Signs/Intake and Output Vital Signs (last 24 hours): Temp Pulse Resp BP Pulse Ox 98.4 F 87 16 111/67 98 02/13/19 16:24 02/13/19 16:24 02/13/19 16:24 02/13/19 16:24 02/13/19 16:24 - Medications Medications: Current Medications Acetaminophen (Tylenol 325mg Tab) 650 mg PO Q6 PRN PRN Reason: Pain, Mild (1-3) Last Admin: 02/13/19 10:38 Dose: 650 mg Atorvastatin Calcium (Lipitor) 40 mg PO DAILY [facility] Last Admin: 02/13/19 10:05 Dose: 40 mg Benzocaine/Menthol (Cepacol Sore Throat) 1 alysa PO Q3 PRN PRN Reason: Sore Throat Dextrose (Dextrose 50% Inj) 0 ml IV STAT PRN; Protocol PRN Reason: Hypoglycemia Protocol Last Admin: 02/06/19 05:35 Dose: 25 ml Dextrose (Glutose 15) 0 gm PO ONCE PRN; Protocol PRN Reason: Hypoglycemia Protocol Dimethicone (Proshield Plus Skin Protectant) 1 applic TOP Q8 PRN PRN Reason: derm Last Admin: 02/13/19 10:04 Dose: 1 applic Ergocalciferol (Drisdol 50,000 Intl Units Cap) 1 cap PO FR [facility] Last Admin: 02/08/19 16:12 Dose: 1 cap Fluticasone Propionate (Flonase) 2 spr PRIYA DAILY [facility] Last Admin: 02/13/19 10:07 Dose: 2 spr Glucagon (Glucagen Diagnostic Kit) 0 mg IM STAT PRN; Protocol PRN Reason: Hypoglycemia Protocol Iron Sucrose 100 mg/ Sodium (Chloride) 105 mls @ 105 mls/hr IVPB DAILY [facility] Last Admin: 02/12/19 12:07 Dose: 105 mls/hr Potassium Chloride/Dextrose/Sod Cl (Potassium Chl 40 Meq In D5-1/2ns) 1,000 mls @ 125 mls/hr IV .Q8H [facility] Stop: 02/14/19 15:05 Potassium Chloride (Potassium Chloride 20 Meq/100 Ml) 100 mls @ 50 mls/hr IVPB Q2 [facility] Stop: 02/14/19 01:59 Insulin Human Regular (Humulin R) 0 units SC ACHS [facility]; Protocol Last Admin: 02/13/19 12:08 Dose: Not Given Memantine (Namenda) 10 mg PO BID [facility] Last Admin: 02/13/19 10:05 Dose: 10 mg Mesalamine (Rowasa Enema) 4 gm RC HS [facility] Last Admin: 02/12/19 21:17 Dose: Not Given Methylprednisolone (Solu-Medrol) 20 mg IVP Q12H [facility] Last Admin: 02/13/19 10:05 Dose: 20 mg Metoprolol Tartrate (Lopressor) 5 mg IVP Q4 [facility] Sennosides (Senokot Tab) 17.2 mg PO HS [facility] Last Admin: 02/12/19 21:18 Dose: 17.2 mg Sitagliptin Phosphate (Januvia) 25 mg PO DAILY [facility] Last Admin: 02/13/19 10:05 Dose: 25 mg Sucralfate (Carafate Oral Susp) 1 gm PO QID [facility] Last Admin: 02/13/19 14:00 Dose: 1 gm Tamsulosin HCl (Flomax) 0.4 mg PO DAILY [facility] Last Admin: 02/13/19 10:07 Dose: 0.4 mg - Labs Labs: 02/13/19 12:25 02/13/19 12:25 Assessment and Plan (1) New onset a-fib Status: Acute (2) Pre-operative cardiovascular examination Status: Acute (3) Anemia Status: Acute (4) GI bleed Status: Resolved (5) Ischemic stroke Status: Resolved (6) HTN (hypertension) Status: Chronic (7) High triglycerides Status: Chronic (8) Ulcerative colitis, chronic Status: Chronic (9) Fall Status: Acute - Assessment and Plan (Free Text) Plan: pt with colorectal stricture, abd distension, loss of appetite and decreased absorption of po meds. will d/c po bb and give iv. needs intervention for stricture. d/w gi at length.
[2019-02-13] MEDS: Potassium Chloride 20 mEq 100 ML IVPB SCH ×5 (18:00→23:54)
[2019-02-13] MEDS: Potassium Chl 40 mEq in D5-1/2 1,000 ML IV SCH (20:17)
[2019-02-13] MEDS: Metoprolol 1 mg/ml Inj IVP SCH (21:26)
[2019-02-14] MEDS: Metoprolol 1 mg/ml Inj IVP SCH ×6 (01:00→21:30)
[2019-02-14] MEDS: Potassium Chl 40 mEq in D5-1/2 1,000 ML IV SCH ×2 (05:03→09:51)
[2019-02-14 07:13] LABS: MEAN CELL VOLUME 83.8 fl (80.0-94.0); MEAN CORPUSCULAR HEMOGLOBIN 26.3 pg (27.0-31.0); MEAN CORPUSCULAR HGB CONC 31.3 g/dL (33.0-37.0); RBC 3.81 Mil/uL (4.40-5.90); RED CELL DISTRIBUTION WIDTH 22.9 % (11.5-14.5); WHITE BLOOD COUNT 7.8 K/uL (4.8-10.8)
--- NOTE | 2019-02-14 07:28 | CP.PCM.PN ---
<Jesus Collier - Last Filed: 02/14/19 11:33> Subjective - Date & Time of Evaluation Date of Evaluation: 02/14/19 Time of Evaluation: 07:28 - Subjective Subjective: Pt seen and examined at bedside with attending, Dr. Mathew. This morning, pt experienced bright red blood in diarrhea. Pt reports mild abdominal pain. Remains afebrile Objective - Vital Signs/Intake and Output Vital Signs (last 24 hours): Temp Pulse Resp BP Pulse Ox 97.5 F L 67 20 113/76 99 02/14/19 04:59 02/14/19 05:21 02/14/19 04:59 02/14/19 05:21 02/14/19 04:59 - Medications Medications: Current Medications Acetaminophen (Tylenol 325mg Tab) 650 mg PO Q6 PRN PRN Reason: Pain, Mild (1-3) Last Admin: 02/13/19 10:38 Dose: 650 mg Atorvastatin Calcium (Lipitor) 40 mg PO DAILY [facility] Last Admin: 02/13/19 10:05 Dose: 40 mg Benzocaine/Menthol (Cepacol Sore Throat) 1 alysa PO Q3 PRN PRN Reason: Sore Throat Dextrose (Dextrose 50% Inj) 0 ml IV STAT PRN; Protocol PRN Reason: Hypoglycemia Protocol Last Admin: 02/06/19 05:35 Dose: 25 ml Dextrose (Glutose 15) 0 gm PO ONCE PRN; Protocol PRN Reason: Hypoglycemia Protocol Dimethicone (Proshield Plus Skin Protectant) 1 applic TOP Q8 PRN PRN Reason: derm Last Admin: 02/13/19 10:04 Dose: 1 applic Ergocalciferol (Drisdol 50,000 Intl Units Cap) 1 cap PO FR [facility] Last Admin: 02/08/19 16:12 Dose: 1 cap Fluticasone Propionate (Flonase) 2 spr PRIYA DAILY [facility] Last Admin: 02/13/19 10:07 Dose: 2 spr Glucagon (Glucagen Diagnostic Kit) 0 mg IM STAT PRN; Protocol PRN Reason: Hypoglycemia Protocol Iron Sucrose 100 mg/ Sodium (Chloride) 105 mls @ 105 mls/hr IVPB DAILY [facility] Last Admin: 02/12/19 12:07 Dose: 105 mls/hr Potassium Chloride/Dextrose/Sod Cl (Potassium Chl 40 Meq In D5-1/2ns) 1,000 mls @ 125 mls/hr IV .Q8H [facility] Stop: 02/14/19 15:05 Last Admin: 02/14/19 05:03 Dose: Not Given Insulin Human Regular (Humulin R) 0 units SC ACHS [facility]; Protocol Last Admin: 02/13/19 21:29 Dose: Not Given Memantine (Namenda) 10 mg PO BID [facility] Last Admin: 02/13/19 18:35 Dose: 10 mg Mesalamine (Rowasa Enema) 4 gm RC [facility] Last Admin: 02/13/19 21:33 Dose: Not Given Methylprednisolone (Solu-Medrol) 10 mg IVP TID [facility] Metoprolol Tartrate (Lopressor) 5 mg IVP Q4 [facility] Last Admin: 02/14/19 05:21 Dose: 5 mg Sennosides (Senokot Tab) 17.2 mg PO [facility] Last Admin: 02/13/19 21:23 Dose: 17.2 mg Sitagliptin Phosphate (Januvia) 25 mg PO DAILY [facility] Last Admin: 02/13/19 10:05 Dose: 25 mg Sucralfate (Carafate Oral Susp) 1 gm PO QID [facility] Last Admin: 02/13/19 22:09 Dose: Not Given Tamsulosin HCl (Flomax) 0.4 mg PO DAILY [facility] Last Admin: 02/13/19 10:07 Dose: 0.4 mg - Labs Labs: 02/14/19 07:04 02/13/19 12:25 - Constitutional Appears: No Acute Distress - Eye Exam Eye Exam: EOMI - ENT Exam ENT Exam: Mucous Membranes Moist - Respiratory Exam Respiratory Exam: Clear to Ausculation Bilateral, NORMAL BREATHING PATTERN. absent: Wheezes - Cardiovascular Exam Cardiovascular Exam: Tachycardia, Irregular Rhythm, +S1, +S2 - GI/Abdominal Exam GI & Abdominal Exam: Soft, Tenderness, Normal Bowel Sounds - Neurological Exam Neurological Exam: Alert, Awake - Psychiatric Exam Psychiatric exam: Normal Affect, Normal Mood Assessment and Plan (1) Colonic stricture Status: Acute (2) Ulcerative colitis, chronic Status: Chronic (3) CKD (chronic kidney disease) Status: Acute (4) Diabetes Status: Acute (5) Dementia Status: Acute (6) Gait instability Status: Acute (7) Anemia Status: Acute (8) HTN (hypertension) Status: Chronic (9) Afib Status: Acute - Assessment and Plan (Free Text) Assessment: 78 y/o male with PMH of Ulcerative colitis, HTN, Bladder Ca, Dementia, prediabetes and CVA in 2007 recently admitted to [facility] for evaluation and treatment of acute bloody diarrhea with R abdominal pain. CT evidence of left sided colitis and treated with Cipro and Flagyl for colitis and his GI bleed eventually resolved, though diarrhea has been persistent and chronic (Cdiff negative). He was found to have low hemoglobin levels that remained stable between 8 - 9. Subsequently during this admission he suffered an acute ischemic stroke for he was evaluated by neurology and cardiology and treated with dual antiplatelet therapy. He had acute kidney injury and hypernatremia which was resolved with IV fluid hydrations under management of senior vice president and chief information officer. While in subacute rehab for rehabilitation, pt represented with bloody stools and dropping hemoglobin. Pt evaluated by Dr. Valreo and team for dizziness and inability to fully engage in therapy. Admitted to tele. Plan: GI Bleed -GI Dr. Calvert: colonoscopy 02/11/2019: stricture with biopsy; barium enema resulting findings for stricture --Bx rectum: focally active inflammation with crypt distortion and grandular epithelial reactive changes. No dysplasia or granulomas are seen. -Gen surg: Dr. Garcia: plan for loop colostomy -FOBT +; stool leukocytes: negative and fat: normal -ASA and plavix discontinued 2/2 GI bleed -IVF: D5 1/2 NS K 40 meq -c/w sucralfate -pt active bleed seen this AM with diarrhea; DDAVP per Dr. Calvert -f/u: GI Bleeding scan; stool: culture, giardia, OP, C. diff, H/H -c/w: monitoring GI bleed, vitals -medical optimization in progress Anemia, chronic -H/H: 10.0/31.9 -s/p PRBC x 3 units transfused -Type and cross match for 2 units ordered d/t active bleed -s/p IV venofer -pt to start po iron -monitor for bleed, hgb level and vitals UC, chronic -with strictures -GI Dr. Calvert -c/w Mesalamine Afib -new onset this admission -on tele monitor -[id number] score: 6 --rate control with meoprolol 5mg IVP q4 --CI to asa/plavix due to acute hx of active GI bleed -Cardiology Dr. Potts: further recs appreciated --Considering Watchman procedure head trauma 2/2 fall -stitches x2 -pt reported mild headache -ct head without: Stable head CT exam with no definitive acute intracranial findings by standard CT criteria. Bilateral chronic occipital lobe infarctions identified once again as well as left basal ganglia chronic lacunes. Stable age related neuro degenerative changes identified. -monitor vitals, progression, neuro deficits CKD -Stage 3 -acute on chronic kidney disease with solitary R kidney. -Nephrology: Dr. Boone consulted: recs appreciated Hypokalemia -2.8 on 02/14/2019; per cardiology: keep at 4.5 -IVF: D5 / NS K 20 meq -s/p K runs -f/u am labs HTN -controlled -c/w metoprolol DM -glucose controlled -c/w januvia -accuchecks -hypoglycemia protocol in place Hx of Acute CVA -Neuro: Dr. Sanchez; f/u neuro OP -c/w atorvastatin Dementia -c/w memantine -reorient as needed Esophagitis, acute -s/p Diflucan Rhinitis -c/w Fluticasone prn DVT/wound prophylaxis -scd (recent active GI bleed) -c/w Proshield Gait instability -PT/OT eval/treat -fall precautions Case and plan d/w Dr. Priyanka Collier MD PGY-2 <Gatito Mathew - Last Filed: 02/17/19 13:12> Objective - Vital Signs/Intake and Output Vital Signs (last 24 hours): Temp Pulse Resp BP Pulse Ox 97.5 F L 66 18 110/68 100 02/17/19 11:45 02/17/19 11:45 02/17/19 11:45 02/17/19 11:45 02/17/19 11:45 Intake and Output: 02/17/19 02/17/19 11:59 23:59 Intake Total 900 Output Total 753 Balance 147 - Medications Medications: Current Medications Acetaminophen (Tylenol 325mg Tab) 650 mg PO Q6 PRN PRN Reason: Pain, Mild (1-3) Last Admin: 02/13/19 10:38 Dose: 650 mg Atorvastatin Calcium (Lipitor) 40 mg PO DAILY [facility] Last Admin: 02/17/19 10:10 Dose: 40 mg Benzocaine/Menthol (Cepacol Sore Throat) 1 alysa PO Q3 PRN PRN Reason: Sore Throat Dextrose (Dextrose 50% Inj) 0 ml IV STAT PRN; Protocol PRN Reason: Hypoglycemia Protocol Last Admin: 02/06/19 05:35 Dose: 25 ml Dextrose (Glutose 15) 0 gm PO ONCE PRN; Protocol PRN Reason: Hypoglycemia Protocol Digoxin (Lanoxin) 0.25 mg IVP DAILY [facility] Last Admin: 02/17/19 11:18 Dose: 0.25 mg Dimethicone (Proshield Plus Skin Protectant) 1 applic TOP Q8 PRN PRN Reason: derm Last Admin: 02/14/19 09:50 Dose: 1 applic Ergocalciferol (Drisdol 50,000 Intl Units Cap) 1 cap PO FR [facility] Last Admin: 02/15/19 16:47 Dose: Not Given Fluticasone Propionate (Flonase) 2 spr PRIYA DAILY [facility] Last Admin: 02/17/19 10:09 Dose: 2 spr Glucagon (Glucagen Diagnostic Kit) 0 mg IM STAT PRN; Protocol PRN Reason: Hypoglycemia Protocol Iron Sucrose 100 mg/ Sodium (Chloride) 105 mls @ 105 mls/hr IVPB DAILY [facility] Last Admin: 02/12/19 12:07 Dose: 105 mls/hr Insulin Human Regular (Humulin R) 0 units SC ACHS [facility]; Protocol Last Admin: 02/17/19 11:24 Dose: Not Given Memantine (Namenda) 10 mg PO BID [facility] Last Admin: 02/17/19 10:11 Dose: 10 mg Mesalamine (Rowasa Enema) 4 gm RC HS [facility] Last Admin: 02/16/19 21:28 Dose: Not Given Methylprednisolone (Solu-Medrol) 10 mg IVP BID [facility] Last Admin: 02/17/19 10:12 Dose: 10 mg Metoprolol Tartrate (Lopressor) 2.5 mg IVP Q3 [facility] Last Admin: 02/17/19 10:11 Dose: 2.5 mg Sennosides (Senokot Tab) 17.2 mg PO HS [facility] Last Admin: 02/16/19 21:25 Dose: 17.2 mg Sitagliptin Phosphate (Januvia) 25 mg PO DAILY [facility] Last Admin: 02/17/19 10:10 Dose: 25 mg Sucralfate (Carafate Oral Susp) 1 gm PO QID [facility] Last Admin: 02/17/19 10:08 Dose: 1 gm Tamsulosin HCl (Flomax) 0.4 mg PO DAILY [facility] Last Admin: 02/17/19 10:09 Dose: 0.4 mg - Labs Labs: 02/17/19 05:02 02/17/19 05:02 PT 12.8 Seconds (9.8-13.1) 02/14/19 10:00 INR 1.1 02/14/19 10:00 APTT 30.6 Seconds (25.6-37.1) 02/14/19 10:00 Assessment and Plan - Assessment and Plan (Free Text) Plan: Patient was personally seen and examined by me in rounds with residents. Available labs and diagnostic data reviewed. Case, Patient's condition and management plan discussed with residents in ro unds. Agree with resident's progress note. Plan: As ordered.
[2019-02-14 07:33] LABS: ALB/GLOB RATIO 0.8 (1.0-2.1); ALBUMIN 2.3 g/dL (3.5-5.0)
--- NOTE | 2019-02-14 07:43 | CP.PCM.PN ---
<Ian Tiwari - Last Filed: 02/14/19 07:40> Subjective - Date & Time of Evaluation Date of Evaluation: 02/14/19 Time of Evaluation: 07:40 - Subjective Subjective: GI NOTE FOR DR. CLARKE 78M seen and examined at bedside. Patient with abd tenderness, mild in nature, continues to have loose BMs. No nausea or vomiting. Objective - Vital Signs/Intake and Output Vital Signs (last 24 hours): Temp Pulse Resp BP Pulse Ox 97.5 F L 67 20 113/76 99 02/14/19 04:59 02/14/19 05:21 02/14/19 04:59 02/14/19 05:21 02/14/19 04:59 - Medications Medications: Current Medications Acetaminophen (Tylenol 325mg Tab) 650 mg PO Q6 PRN PRN Reason: Pain, Mild (1-3) Last Admin: 02/13/19 10:38 Dose: 650 mg Atorvastatin Calcium (Lipitor) 40 mg PO DAILY [facility] Last Admin: 02/13/19 10:05 Dose: 40 mg Benzocaine/Menthol (Cepacol Sore Throat) 1 alysa PO Q3 PRN PRN Reason: Sore Throat Dextrose (Dextrose 50% Inj) 0 ml IV STAT PRN; Protocol PRN Reason: Hypoglycemia Protocol Last Admin: 02/06/19 05:35 Dose: 25 ml Dextrose (Glutose 15) 0 gm PO ONCE PRN; Protocol PRN Reason: Hypoglycemia Protocol Dimethicone (Proshield Plus Skin Protectant) 1 applic TOP Q8 PRN PRN Reason: derm Last Admin: 02/13/19 10:04 Dose: 1 applic Ergocalciferol (Drisdol 50,000 Intl Units Cap) 1 cap PO FR [facility] Last Admin: 02/08/19 16:12 Dose: 1 cap Fluticasone Propionate (Flonase) 2 spr PRIYA DAILY [facility] Last Admin: 02/13/19 10:07 Dose: 2 spr Glucagon (Glucagen Diagnostic Kit) 0 mg IM STAT PRN; Protocol PRN Reason: Hypoglycemia Protocol Iron Sucrose 100 mg/ Sodium (Chloride) 105 mls @ 105 mls/hr IVPB DAILY [facility] Last Admin: 02/12/19 12:07 Dose: 105 mls/hr Potassium Chloride/Dextrose/Sod Cl (Potassium Chl 40 Meq In D5-1/2ns) 1,000 mls @ 125 mls/hr IV .Q8H [facility] Stop: 02/14/19 15:05 Last Admin: 02/14/19 05:03 Dose: Not Given Insulin Human Regular (Humulin R) 0 units SC ACHS [facility]; Protocol Last Admin: 02/13/19 21:29 Dose: Not Given Memantine (Namenda) 10 mg PO BID [facility] Last Admin: 02/13/19 18:35 Dose: 10 mg Mesalamine (Rowasa Enema) 4 gm RC [facility] Last Admin: 02/13/19 21:33 Dose: Not Given Methylprednisolone (Solu-Medrol) 10 mg IVP TID [facility] Metoprolol Tartrate (Lopressor) 5 mg IVP Q4 [facility] Last Admin: 02/14/19 05:21 Dose: 5 mg Sennosides (Senokot Tab) 17.2 mg PO HS [facility] Last Admin: 02/13/19 21:23 Dose: 17.2 mg Sitagliptin Phosphate (Januvia) 25 mg PO DAILY [facility] Last Admin: 02/13/19 10:05 Dose: 25 mg Sucralfate (Carafate Oral Susp) 1 gm PO QID [facility] Last Admin: 02/13/19 22:09 Dose: Not Given Tamsulosin HCl (Flomax) 0.4 mg PO DAILY [facility] Last Admin: 02/13/19 10:07 Dose: 0.4 mg - Labs Labs: 02/14/19 07:04 02/14/19 07:04 - Constitutional Appears: Non-toxic, No Acute Distress - Respiratory Exam Respiratory Exam: Clear to Ausculation Bilateral, NORMAL BREATHING PATTERN - Cardiovascular Exam Cardiovascular Exam: REGULAR RHYTHM, +S1, +S2 - GI/Abdominal Exam GI & Abdominal Exam: Soft, Tenderness. absent: Distended, Firm, Guarding, Rigid, Rebound Assessment and Plan - Assessment and Plan (Free Text) Assessment: 78M with rectal stricture Plan: - rec surgical intervention, loop colostomy - Poss place scope through ostomy for better evaluation of bleeding source - Will discuss with surgical team today Further recs discuss with Dr. Enrike Tiwari, PGY3 <Austin Clarke - Last Filed: 02/14/19 11:22> Objective - Vital Signs/Intake and Output Vital Signs (last 24 hours): Temp Pulse Resp BP Pulse Ox 97.6 F 120 H 18 96/75 L 96 02/14/19 08:00 02/14/19 09:58 02/14/19 08:00 02/14/19 09:58 02/14/19 08:00 - Medications Medications: Current Medications Acetaminophen (Tylenol 325mg Tab) 650 mg PO Q6 PRN PRN Reason: Pain, Mild (1-3) Last Admin: 02/13/19 10:38 Dose: 650 mg Atorvastatin Calcium (Lipitor) 40 mg PO DAILY [facility] Last Admin: 02/14/19 10:10 Dose: Not Given Benzocaine/Menthol (Cepacol Sore Throat) 1 alysa PO Q3 PRN PRN Reason: Sore Throat Desmopressin Acetate (Ddavp) 21 mcg IVP ONCE ONE Stop: 02/14/19 11:16 Dextrose (Dextrose 50% Inj) 0 ml IV STAT PRN; Protocol PRN Reason: Hypoglycemia Protocol Last Admin: 02/06/19 05:35 Dose: 25 ml Dextrose (Glutose 15) 0 gm PO ONCE PRN; Protocol PRN Reason: Hypoglycemia Protocol Dimethicone (Proshield Plus Skin Protectant) 1 applic TOP Q8 PRN PRN Reason: derm Last Admin: 02/14/19 09:50 Dose: 1 applic Ergocalciferol (Drisdol 50,000 Intl Units Cap) 1 cap PO FR [facility] Last Admin: 02/08/19 16:12 Dose: 1 cap Fluticasone Propionate (Flonase) 2 spr PRIYA DAILY [facility] Last Admin: 02/14/19 10:11 Dose: 2 spr Glucagon (Glucagen Diagnostic Kit) 0 mg IM STAT PRN; Protocol PRN Reason: Hypoglycemia Protocol Iron Sucrose 100 mg/ Sodium (Chloride) 105 mls @ 105 mls/hr IVPB DAILY [facility] Last Admin: 02/12/19 12:07 Dose: 105 mls/hr Potassium Chloride/Dextrose/Sod Cl (Potassium Chl 40 Meq In D5-1/2ns) 1,000 mls @ 125 mls/hr IV .Q8H [facility] Stop: 02/14/19 15:05 Last Admin: 02/14/19 09:51 Dose: 125 mls/hr Insulin Human Regular (Humulin R) 0 units SC ACHS [facility]; Protocol Last Admin: 02/14/19 08:10 Dose: Not Given Memantine (Namenda) 10 mg PO BID [facility] Last Admin: 02/13/19 18:35 Dose: 10 mg Mesalamine (Rowasa Enema) 4 gm RC [facility] Last Admin: 02/13/19 21:33 Dose: Not Given Methylprednisolone (Solu-Medrol) 10 mg IVP TID [facility] Last Admin: 02/14/19 09:48 Dose: 10 mg Metoprolol Tartrate (Lopressor) 5 mg IVP Q4 [facility] Last Admin: 02/14/19 09:58 Dose: 5 mg Sennosides (Senokot Tab) 17.2 mg PO HS [facility] Last Admin: 02/13/19 21:23 Dose: 17.2 mg Sitagliptin Phosphate (Januvia) 25 mg PO DAILY [facility] Last Admin: 02/14/19 10:10 Dose: Not Given Sucralfate (Carafate Oral Susp) 1 gm PO QID [facility] Last Admin: 02/14/19 10:11 Dose: Not Given Tamsulosin HCl (Flomax) 0.4 mg PO DAILY [facility] Last Admin: 02/14/19 10:11 Dose: Not Given - Labs Labs: 02/14/19 07:04 02/14/19 07:04 PT 12.8 Seconds (9.8-13.1) 02/14/19 10:00 INR 1.1 02/14/19 10:00 APTT 30.6 Seconds (25.6-37.1) 02/14/19 10:00 Assessment and Plan (1) GI bleed Status: Resolved - Assessment and Plan (Free Text) Plan: Patient seen and discussed with Dr Muñiz from surgery. Patient with very tight rectosigmoid stricture and colon distention proximally. He is to have surgical procedure likely loop colostomy. Had some bleeding this morning though no current active bleeding and Hgb remains stable. DDAVP given.
[2019-02-14] MEDS: Insulin Regular 100 units/ml SC SCH ×4 (08:10→21:05)
--- NOTE | 2019-02-14 08:10 | CP.PCM.PN ---
<Santos Hendricks - Last Filed: 02/14/19 08:04> Subjective - Date & Time of Evaluation Date of Evaluation: 02/14/19 Time of Evaluation: 08:04 - Subjective Subjective: Surgery Progress note- Dr. CHESTER Patient seen and examined. no acute complaints at this time. Passing flatus and having multiple small loose BM. Barium enema shows stricture. Tolerating CLD, states he has an appetite. Denies f/c/cp/sob Objective - Vital Signs/Intake and Output Vital Signs (last 24 hours): Temp Pulse Resp BP Pulse Ox 97.5 F L 67 20 113/76 99 02/14/19 04:59 02/14/19 05:21 02/14/19 04:59 02/14/19 05:21 02/14/19 04:59 - Medications Medications: Current Medications Acetaminophen (Tylenol 325mg Tab) 650 mg PO Q6 PRN PRN Reason: Pain, Mild (1-3) Last Admin: 02/13/19 10:38 Dose: 650 mg Atorvastatin Calcium (Lipitor) 40 mg PO DAILY JOVANNY Last Admin: 02/13/19 10:05 Dose: 40 mg Benzocaine/Menthol (Cepacol Sore Throat) 1 alysa PO Q3 PRN PRN Reason: Sore Throat Dextrose (Dextrose 50% Inj) 0 ml IV STAT PRN; Protocol PRN Reason: Hypoglycemia Protocol Last Admin: 02/06/19 05:35 Dose: 25 ml Dextrose (Glutose 15) 0 gm PO ONCE PRN; Protocol PRN Reason: Hypoglycemia Protocol Dimethicone (Proshield Plus Skin Protectant) 1 applic TOP Q8 PRN PRN Reason: derm Last Admin: 02/13/19 10:04 Dose: 1 applic Ergocalciferol (Drisdol 50,000 Intl Units Cap) 1 cap PO FR JOVANNY Last Admin: 02/08/19 16:12 Dose: 1 cap Fluticasone Propionate (Flonase) 2 spr PRIYA DAILY JOVANNY Last Admin: 02/13/19 10:07 Dose: 2 spr Glucagon (Glucagen Diagnostic Kit) 0 mg IM STAT PRN; Protocol PRN Reason: Hypoglycemia Protocol Iron Sucrose 100 mg/ Sodium (Chloride) 105 mls @ 105 mls/hr IVPB DAILY [facility] Last Admin: 02/12/19 12:07 Dose: 105 mls/hr Potassium Chloride/Dextrose/Sod Cl (Potassium Chl 40 Meq In D5-1/2ns) 1,000 mls @ 125 mls/hr IV .Q8H [facility] Stop: 02/14/19 15:05 Last Admin: 02/14/19 05:03 Dose: Not Given Insulin Human Regular (Humulin R) 0 units SC ACHS [facility]; Protocol Last Admin: 02/13/19 21:29 Dose: Not Given Memantine (Namenda) 10 mg PO BID [facility] Last Admin: 02/13/19 18:35 Dose: 10 mg Mesalamine (Rowasa Enema) 4 gm RC [facility] Last Admin: 02/13/19 21:33 Dose: Not Given Methylprednisolone (Solu-Medrol) 10 mg IVP TID [facility] Metoprolol Tartrate (Lopressor) 5 mg IVP Q4 [facility] Last Admin: 02/14/19 05:21 Dose: 5 mg Sennosides (Senokot Tab) 17.2 mg PO [facility] Last Admin: 02/13/19 21:23 Dose: 17.2 mg Sitagliptin Phosphate (Januvia) 25 mg PO DAILY [facility] Last Admin: 02/13/19 10:05 Dose: 25 mg Sucralfate (Carafate Oral Susp) 1 gm PO QID [facility] Last Admin: 02/13/19 22:09 Dose: Not Given Tamsulosin HCl (Flomax) 0.4 mg PO DAILY [facility] Last Admin: 02/13/19 10:07 Dose: 0.4 mg - Labs Labs: 02/14/19 07:04 02/14/19 07:04 - Constitutional Appears: Non-toxic, No Acute Distress - Head Exam Head Exam: ATRAUMATIC - Eye Exam Eye Exam: EOMI. absent: Scleral icterus - ENT Exam ENT Exam: Mucous Membranes Moist - Respiratory Exam Respiratory Exam: NORMAL BREATHING PATTERN. absent: Accessory Muscle Use, Respiratory Distress - Cardiovascular Exam Cardiovascular Exam: REGULAR RHYTHM. absent: Bradycardia, Tachycardia - GI/Abdominal Exam GI & Abdominal Exam: Soft, Tenderness (mild diffuse tenderness). absent: Distended, Firm, Guarding, Rigid - Extremities Exam Extremities Exam: absent: Calf Tenderness - Neurological Exam Neurological Exam: Alert, Awake, Oriented x3 - Psychiatric Exam Psychiatric exam: Normal Affect - Skin Skin Exam: Intact, Warm Assessment and Plan - Assessment and Plan (Free Text) Assessment: 78M w/ GI bleed, Hgb, currently stable; and Rectal Stricture Plan: NPO IVF will discuss possible surgical intervention will need medical optimization prior to surgery discussed w/ Dr. Avila PGY2 <Jp Del Cid N - Last Filed: 02/18/19 17:35> Objective - Vital Signs/Intake and Output Vital Signs (last 24 hours): Temp Pulse Resp BP Pulse Ox 97.5 F L 100 H 20 128/74 98 02/18/19 08:46 02/18/19 12:48 02/18/19 08:46 02/18/19 12:48 02/18/19 11:02 Intake and Output: 02/18/19 02/18/19 06:59 18:59 Intake Total 325 Balance 325 - Medications Medications: Current Medications Acetaminophen (Tylenol 325mg Tab) 650 mg PO Q6 PRN PRN Reason: Pain, Mild (1-3) Last Admin: 02/13/19 10:38 Dose: 650 mg Atorvastatin Calcium (Lipitor) 40 mg PO DAILY [facility] Last Admin: 02/18/19 09:39 Dose: Not Given Benzocaine/Menthol (Cepacol Sore Throat) 1 alysa PO Q3 PRN PRN Reason: Sore Throat Dextrose (Dextrose 50% Inj) 0 ml IV STAT PRN; Protocol PRN Reason: Hypoglycemia Protocol Last Admin: 02/06/19 05:35 Dose: 25 ml Dextrose (Glutose 15) 0 gm PO ONCE PRN; Protocol PRN Reason: Hypoglycemia Protocol Digoxin (Lanoxin) 0.125 mg IVP DAILY [facility] Last Admin: 02/18/19 09:44 Dose: 0.125 mg Dimethicone (Proshield Plus Skin Protectant) 1 applic TOP Q8 PRN PRN Reason: derm Last Admin: 02/14/19 09:50 Dose: 1 applic Ergocalciferol (Drisdol 50,000 Intl Units Cap) 1 cap PO FR [facility] Last Admin: 02/15/19 16:47 Dose: Not Given Fluticasone Propionate (Flonase) 2 spr PRIYA DAILY [facility] Last Admin: 02/18/19 09:36 Dose: 2 spr Glucagon (Glucagen Diagnostic Kit) 0 mg IM STAT PRN; Protocol PRN Reason: Hypoglycemia Protocol Iron Sucrose 100 mg/ Sodium (Chloride) 105 mls @ 105 mls/hr IVPB DAILY [facility] Last Admin: 02/12/19 12:07 Dose: 105 mls/hr Sodium Chloride (Sodium Chloride 0.9%) 1,000 mls @ 75 mls/hr IV .[id number] [facility] Last Admin: 02/17/19 21:38 Dose: 75 mls/hr Insulin Human Regular (Humulin R) 0 units SC ACHS [facility]; Protocol Last Admin: 02/18/19 11:54 Dose: Not Given Memantine (Namenda) 10 mg PO BID [facility] Last Admin: 02/18/19 09:40 Dose: Not Given Mesalamine (Rowasa Enema) 4 gm RC HS [facility] Last Admin: 02/17/19 21:36 Dose: Not Given Methylprednisolone (Solu-Medrol) 10 mg IVP BID [facility] Last Admin: 02/18/19 09:40 Dose: 10 mg Metoprolol Tartrate (Lopressor) 2.5 mg IVP Q3 [facility] Last Admin: 02/18/19 12:48 Dose: 2.5 mg Sennosides (Senokot Tab) 17.2 mg PO [facility] Last Admin: 02/17/19 21:28 Dose: 17.2 mg Sitagliptin Phosphate (Januvia) 25 mg PO DAILY [facility] Last Admin: 02/18/19 09:39 Dose: Not Given Sucralfate (Carafate Oral Susp) 1 gm PO QID [facility] Last Admin: 02/18/19 13:18 Dose: 1 gm Tamsulosin HCl (Flomax) 0.4 mg PO DAILY [facility] Last Admin: 02/18/19 09:34 Dose: Not Given - Labs Labs: 02/18/19 04:45 02/18/19 04:45 PT 12.8 Seconds (9.8-13.1) 02/14/19 10:00 INR 1.1 02/14/19 10:00 APTT 30.6 Seconds (25.6-37.1) 02/14/19 10:00 Assessment and Plan - Assessment and Plan (Free Text) Plan: All medical record entries made by the resident were at my direction. I have reviewed the chart and agree that the record accurately reflects my personal performance of the history, physical exam, and medical decision making.
[2019-02-14] MEDS ORDERED: methylPREDNISolone 10 MG in Sodium Chloride 0.9% 50 ML IV SCH (09:00)
[2019-02-14] MEDS: MethylPREDNISolone 40 mg Vial IVP SCH ×3 (09:48→18:30)
[2019-02-14] MEDS: Proshield Plus GEL TOP PRN (09:50)
[2019-02-14] MEDS: Sucralfate 1 gm/10 ml Oral Susp UD PO SCH ×4 (10:11→21:32)
[2019-02-14 10:29] LABS: INR 1.1; PROTHROMBIN TIME 12.8 Seconds (9.8-13.1)
[2019-02-14 10:31] LABS: PARTIAL THROMBOPLASTIN TIME 30.6 Seconds (25.6-37.1)
[2019-02-14] MEDS ORDERED: Desmopressin 4 mcg/ml Inj (1 ml) IVP ONE (11:15)
--- NOTE | 2019-02-14 13:41 | NM ---
Date of service: 2019-02-14 10:30:00 PROCEDURE: Nuclear medicine gastrointestinal bleeding scan. HISTORY: active GI bleed COMPARISON: None available. TECHNIQUE: 4 CCof patient blood was withdrawn and mixed with 22.700mCi of technetium ultra tagged. Images of the abdomen and pelvis were obtained in the anterior and posterior projection at 1 min intervals over a period of 45 min. FINDINGS: No abnormal extravasation of tracer was observed throughout the exam to indicate active bleeding within or outside the gastrointestinal tract. Physiologic activity was seen in the heart, liver, spleen and blood vessels. IMPRESSION: No evidence of active gastrointestinal bleeding.
--- NOTE | 2019-02-14 14:30 | CP.PCM.PN ---
Subjective - Date & Time of Evaluation Date of Evaluation: 02/14/19 Time of Evaluation: 02:15 - Subjective Subjective: Just returned from bleeding scan. Still having blood in stools. Denies SOB ,palp or CP. Objective - Vital Signs/Intake and Output Vital Signs (last 24 hours): Temp Pulse Resp BP Pulse Ox 97.6 F 82 18 109/70 96 02/14/19 11:46 02/14/19 11:46 02/14/19 11:46 02/14/19 11:46 02/14/19 11:46 - Medications Medications: Current Medications Acetaminophen (Tylenol 325mg Tab) 650 mg PO Q6 PRN PRN Reason: Pain, Mild (1-3) Last Admin: 02/13/19 10:38 Dose: 650 mg Atorvastatin Calcium (Lipitor) 40 mg PO DAILY JOVANNY Last Admin: 02/14/19 10:10 Dose: Not Given Benzocaine/Menthol (Cepacol Sore Throat) 1 alysa PO Q3 PRN PRN Reason: Sore Throat Dextrose (Dextrose 50% Inj) 0 ml IV STAT PRN; Protocol PRN Reason: Hypoglycemia Protocol Last Admin: 02/06/19 05:35 Dose: 25 ml Dextrose (Glutose 15) 0 gm PO ONCE PRN; Protocol PRN Reason: Hypoglycemia Protocol Dimethicone (Proshield Plus Skin Protectant) 1 applic TOP Q8 PRN PRN Reason: derm Last Admin: 02/14/19 09:50 Dose: 1 applic Ergocalciferol (Drisdol 50,000 Intl Units Cap) 1 cap PO FR JOVANNY Last Admin: 02/08/19 16:12 Dose: 1 cap Fluticasone Propionate (Flonase) 2 spr PRIYA DAILY JOVANNY Last Admin: 02/14/19 10:11 Dose: 2 spr Glucagon (Glucagen Diagnostic Kit) 0 mg IM STAT PRN; Protocol PRN Reason: Hypoglycemia Protocol Iron Sucrose 100 mg/ Sodium (Chloride) 105 mls @ 105 mls/hr IVPB DAILY JOVANNY Last Admin: 02/12/19 12:07 Dose: 105 mls/hr Potassium Chloride/Dextrose/Sod Cl (Potassium Chl 40 Meq In D5-1/2ns) 1,000 mls @ 125 mls/hr IV .Q8H JOVANNY Stop: 02/14/19 15:05 Last Admin: 04/11/19 09:51 Dose: 125 mls/hr Insulin Human Regular (Humulin R) 0 units SC ACHS [facility]; Protocol Last Admin: 02/14/19 08:10 Dose: Not Given Memantine (Namenda) 10 mg PO BID [facility] Last Admin: 02/13/19 18:35 Dose: 10 mg Mesalamine (Rowasa Enema) 4 gm RC HS [facility] Last Admin: 02/13/19 21:33 Dose: Not Given Methylprednisolone (Solu-Medrol) 10 mg IVP TID [facility] Last Admin: 02/14/19 09:48 Dose: 10 mg Metoprolol Tartrate (Lopressor) 5 mg IVP Q4 [facility] Last Admin: 02/14/19 09:58 Dose: 5 mg Sennosides (Senokot Tab) 17.2 mg PO HS [facility] Last Admin: 02/13/19 21:23 Dose: 17.2 mg Sitagliptin Phosphate (Januvia) 25 mg PO DAILY [facility] Last Admin: 02/14/19 10:10 Dose: Not Given Sucralfate (Carafate Oral Susp) 1 gm PO QID [facility] Last Admin: 02/14/19 10:11 Dose: Not Given Tamsulosin HCl (Flomax) 0.4 mg PO DAILY [facility] Last Admin: 02/14/19 10:11 Dose: Not Given - Labs Labs: 02/14/19 07:04 02/14/19 07:04 PT 12.8 Seconds (9.8-13.1) 02/14/19 10:00 INR 1.1 02/14/19 10:00 APTT 30.6 Seconds (25.6-37.1) 02/14/19 10:00 - Constitutional Appears: No Acute Distress - Head Exam Head Exam: ATRAUMATIC, NORMOCEPHALIC - Eye Exam Additional comments: Conjunctiva pale . No icterus - ENT Exam ENT Exam: Mucous Membranes Moist - Neck Exam Additional comments: supple - Respiratory Exam Respiratory Exam: NORMAL BREATHING PATTERN Additional comments: Lungs clear - Cardiovascular Exam Cardiovascular Exam: Irregular Rhythm Additional comments: A. fib 120- 130/min - GI/Abdominal Exam Additional comments: Softly distended. Mild diffuse tenderness. No guarding. 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 Renal function has been stable so far Hx/o prostate Ca with radiation implant. New onset of A.fib Plan: For surgery tomorrow Monitor urine output & renal function closely. Avoid hypotension Jyotsna-Op. Blood pressures have been on low side Avoid use of potentially nephrotoxic meds.
--- NOTE | 2019-02-14 14:32 | RAD ---
Date of service: 02/14/2019 PROCEDURE: CHEST RADIOGRAPH, 1 VIEW HISTORY: surgical clearance; afib COMPARISON: 01/15/2019 FINDINGS: LUNGS: Clear. PLEURA: No pneumothorax or pleural fluid seen. CARDIOVASCULAR: No aortic atherosclerotic calcification present. Normal heart size. Right PICC catheter terminates in the region of the superior vena cava. OSSEOUS STRUCTURES: No significant abnormalities. VISUALIZED UPPER ABDOMEN: Normal. OTHER FINDINGS: None. IMPRESSION: No active disease.
--- NOTE | 2019-02-14 14:42 | CP.PCM.PN ---
Subjective - Date & Time of Evaluation Date of Evaluation: 02/14/19 Time of Evaluation: 14:37 - Subjective Subjective: ASKED TO RISK ASSESS PT FOR DIVERTING COLOSTOMY BY DR RUSHING. PT DENIES CP, SOB, PALP, LH, DIZZINESS. PT HAS A COLORECTAL STRICTURE WITH PROXIMAL GIB. THE STRICTURE IS PRECLUDING EVALUATION AND TREATMENT OF GIB. DURING THIS ADMISSION PT DEVELOPED NEW ONSET AFIB LIKELY DUE TO ONGOING ABDOMINAL PATHOLOGY. PTS HR WAS CONTROLLED ON PO MEDS HOWEVER RECENTLY HE BECAME RESISTANT. I SUSPECT ABSORPTION IS NOW AN ISSUE. DESPITE RAPID AFIB PT HAS NOT HAD SYMPTOMS OF CAD OR CHF. EF IS NML. Objective - Vital Signs/Intake and Output Vital Signs (last 24 hours): Temp Pulse Resp BP Pulse Ox 97.6 F 82 18 109/70 96 02/14/19 11:46 02/14/19 11:46 02/14/19 11:46 02/14/19 11:46 02/14/19 11:46 - Medications Medications: Current Medications Acetaminophen (Tylenol 325mg Tab) 650 mg PO Q6 PRN PRN Reason: Pain, Mild (1-3) Last Admin: 02/13/19 10:38 Dose: 650 mg Atorvastatin Calcium (Lipitor) 40 mg PO DAILY JOVANNY Last Admin: 02/14/19 10:10 Dose: Not Given Benzocaine/Menthol (Cepacol Sore Throat) 1 alysa PO Q3 PRN PRN Reason: Sore Throat Dextrose (Dextrose 50% Inj) 0 ml IV STAT PRN; Protocol PRN Reason: Hypoglycemia Protocol Last Admin: 02/06/19 05:35 Dose: 25 ml Dextrose (Glutose 15) 0 gm PO ONCE PRN; Protocol PRN Reason: Hypoglycemia Protocol Dimethicone (Proshield Plus Skin Protectant) 1 applic TOP Q8 PRN PRN Reason: derm Last Admin: 02/14/19 09:50 Dose: 1 applic Ergocalciferol (Drisdol 50,000 Intl Units Cap) 1 cap PO FR JOVANNY Last Admin: 02/08/19 16:12 Dose: 1 cap Fluticasone Propionate (Flonase) 2 spr PRIYA DAILY JOVANNY Last Admin: 02/14/19 10:11 Dose: 2 spr Glucagon (Glucagen Diagnostic Kit) 0 mg IM STAT PRN; Protocol PRN Reason: Hypoglycemia Protocol Iron Sucrose 100 mg/ Sodium (Chloride) 105 mls @ 105 mls/hr IVPB DAILY [facility] Last Admin: 02/12/19 12:07 Dose: 105 mls/hr Potassium Chloride/Dextrose/Sod Cl (Potassium Chl 40 Meq In D5-1/2ns) 1,000 mls @ 125 mls/hr IV .Q8H [facility] Stop: 02/14/19 15:05 Last Admin: 02/14/19 09:51 Dose: 125 mls/hr Insulin Human Regular (Humulin R) 0 units SC [facility]; Protocol Last Admin: 02/14/19 08:10 Dose: Not Given Memantine (Namenda) 10 mg PO BID [facility] Last Admin: 02/13/19 18:35 Dose: 10 mg Mesalamine (Rowasa Enema) 4 gm RC [facility] Last Admin: 02/13/19 21:33 Dose: Not Given Methylprednisolone (Solu-Medrol) 10 mg IVP TID [facility] Last Admin: 02/14/19 09:48 Dose: 10 mg Metoprolol Tartrate (Lopressor) 5 mg IVP Q4 [facility] Last Admin: 02/14/19 09:58 Dose: 5 mg Sennosides (Senokot Tab) 17.2 mg PO HS [facility] Last Admin: 02/13/19 21:23 Dose: 17.2 mg Sitagliptin Phosphate (Januvia) 25 mg PO DAILY [facility] Last Admin: 02/14/19 10:10 Dose: Not Given Sucralfate (Carafate Oral Susp) 1 gm PO QID [facility] Last Admin: 02/14/19 10:11 Dose: Not Given Tamsulosin HCl (Flomax) 0.4 mg PO DAILY [facility] Last Admin: 02/14/19 10:11 Dose: Not Given - Labs Labs: 02/14/19 07:04 02/14/19 07:04 PT 12.8 Seconds (9.8-13.1) 02/14/19 10:00 INR 1.1 02/14/19 10:00 APTT 30.6 Seconds (25.6-37.1) 02/14/19 10:00 Assessment and Plan (1) Pre-operative cardiovascular examination Status: Acute (2) New onset a-fib Status: Acute (3) Anemia Status: Acute (4) GI bleed Status: Resolved (5) Ischemic stroke Status: Resolved (6) HTN (hypertension) Status: Chronic (7) High triglycerides Status: Chronic (8) Ulcerative colitis, chronic Status: Chronic (9) Fall Status: Acute - Assessment and Plan (Free Text) Plan: PT MAY PROCEED WITH SEMI-URGENT AND NECESSARY ABD SURGERY. HE IS LOW RISK FOR OK PER GUIDELINES AND INTERMEDIATE RISK FOR VASCULAR EVENTS GIVEN AFIB AND RECENT CVA. WOULD USE NAHOMY BETA BLOCKERS FOR HR AND BP CONTROL PERIOPERATIVELY. NO ANTICOAG OR ANTIPLTS.
[2019-02-14] MEDS ORDERED: Lactated Ringer's 1,000 ML IV SCH (18:45)
[2019-02-14] MEDS: Lactated Ringer's 1,000 ML IV SCH (21:04)
--- NOTE | 2019-02-14 23:00 | CARD ---
APPROVED REPORT Date of service: 02/14/2019 EKG Measurement Heart [id number] <Conclusion> Atrial fibrillation with rapid ventricular response ST abnormality, consider lateral wall ischemia Abnormal ECG
[2019-02-15] MEDS: Metoprolol 1 mg/ml Inj IVP SCH ×4 (01:07→22:18)
[2019-02-15] MEDS: Lactated Ringer's 1,000 ML IV SCH (04:42)
[2019-02-15 05:51] LABS: HEMOGLOBIN 9.5 g/dL (12.0-18.0); MEAN CELL VOLUME 83.6 fl (80.0-94.0); MEAN CORPUSCULAR HEMOGLOBIN 26.4 pg (27.0-31.0); MEAN CORPUSCULAR HGB CONC 31.6 g/dL (33.0-37.0); RBC 3.59 Mil/uL (4.40-5.90); RED CELL DISTRIBUTION WIDTH 22.7 % (11.5-14.5); WHITE BLOOD COUNT 8.4 K/uL (4.8-10.8)
--- NOTE | 2019-02-15 06:37 | CP.PCM.PN ---
<Jesus Collier - Last Filed: 02/15/19 09:35> Subjective - Date & Time of Evaluation Date of Evaluation: 02/15/19 Time of Evaluation: 06:36 - Subjective Subjective: Pt seen and examined at bedside with attending, Dr. Mathew. Pt had episodes of tachycardia overnight. Pt denies rectal bleed. Pt remains afebrile, hemoglobin stable with no significant, acute blood loss. vitals stable. Objective - Vital Signs/Intake and Output Vital Signs (last 24 hours): Temp Pulse Resp BP Pulse Ox 97.3 F L 82 20 112/72 98 02/15/19 05:00 02/15/19 05:00 02/15/19 05:00 02/15/19 05:00 02/15/19 05:00 - Medications Medications: Current Medications Acetaminophen (Tylenol 325mg Tab) 650 mg PO Q6 PRN PRN Reason: Pain, Mild (1-3) Last Admin: 02/13/19 10:38 Dose: 650 mg Atorvastatin Calcium (Lipitor) 40 mg PO DAILY [facility] Last Admin: 02/14/19 10:10 Dose: Not Given Benzocaine/Menthol (Cepacol Sore Throat) 1 alysa PO Q3 PRN PRN Reason: Sore Throat Dextrose (Dextrose 50% Inj) 0 ml IV STAT PRN; Protocol PRN Reason: Hypoglycemia Protocol Last Admin: 02/06/19 05:35 Dose: 25 ml Dextrose (Glutose 15) 0 gm PO ONCE PRN; Protocol PRN Reason: Hypoglycemia Protocol Dimethicone (Proshield Plus Skin Protectant) 1 applic TOP Q8 PRN PRN Reason: derm Last Admin: 02/14/19 09:50 Dose: 1 applic Ergocalciferol (Drisdol 50,000 Intl Units Cap) 1 cap PO FR [facility] Last Admin: 02/08/19 16:12 Dose: 1 cap Fluticasone Propionate (Flonase) 2 spr PRIYA DAILY [facility] Last Admin: 02/14/19 10:11 Dose: 2 spr Glucagon (Glucagen Diagnostic Kit) 0 mg IM STAT PRN; Protocol PRN Reason: Hypoglycemia Protocol Iron Sucrose 100 mg/ Sodium (Chloride) 105 mls @ 105 mls/hr IVPB DAILY [facility] Last Admin: 02/12/19 12:07 Dose: 105 mls/hr Lactated Ringer's (Lactated Ringer's) 1,000 mls @ 120 mls/hr IV .Q8H20M [facility] Last Admin: 02/15/19 04:42 Dose: 120 mls/hr Insulin Human Regular (Humulin R) 0 units SC ACHS [facility]; Protocol Last Admin: 02/14/19 21:05 Dose: Not Given Memantine (Namenda) 10 mg PO BID [facility] Last Admin: 02/14/19 17:13 Dose: Not Given Mesalamine (Rowasa Enema) 4 gm RC [facility] Last Admin: 02/14/19 21:37 Dose: Not Given Methylprednisolone (Solu-Medrol) 10 mg IVP TID [facility] Last Admin: 02/14/19 18:30 Dose: 10 mg Metoprolol Tartrate (Lopressor) 5 mg IVP Q4 [facility] Last Admin: 02/15/19 04:54 Dose: 5 mg Sennosides (Senokot Tab) 17.2 mg PO [facility] Last Admin: 02/14/19 21:33 Dose: 17.2 mg Sitagliptin Phosphate (Januvia) 25 mg PO DAILY [facility] Last Admin: 02/14/19 10:10 Dose: Not Given Sucralfate (Carafate Oral Susp) 1 gm PO QID [facility] Last Admin: 02/14/19 21:32 Dose: 1 gm Tamsulosin HCl (Flomax) 0.4 mg PO DAILY [facility] Last Admin: 02/14/19 10:11 Dose: Not Given - Labs Labs: 02/15/19 05:00 02/14/19 07:04 PT 12.8 Seconds (9.8-13.1) 02/14/19 10:00 INR 1.1 02/14/19 10:00 APTT 30.6 Seconds (25.6-37.1) 02/14/19 10:00 - Constitutional Appears: No Acute Distress - Eye Exam Eye Exam: EOMI - ENT Exam ENT Exam: Mucous Membranes Moist - Respiratory Exam Respiratory Exam: absent: Wheezes - Cardiovascular Exam Cardiovascular Exam: Tachycardia, Irregular Rhythm, +S1, +S2 - GI/Abdominal Exam GI & Abdominal Exam: Distended, Soft, Tenderness (MILD on L ) - Neurological Exam Neurological Exam: Alert, Awake Assessment and Plan (1) Colonic stricture Status: Acute (2) Ulcerative colitis, chronic Status: Chronic (3) CKD (chronic kidney disease) Status: Acute (4) Diabetes Status: Acute (5) Dementia Status: Acute (6) Gait instability Status: Acute (7) Anemia Status: Acute (8) HTN (hypertension) Status: Chronic (9) Afib Status: Acute - Assessment and Plan (Free Text) Assessment: 78 y/o male with PMH of Ulcerative colitis, HTN, Bladder Ca, Dementia, prediabetes and CVA in 2007 recently admitted to [facility] for evaluation and treatment of acute bloody diarrhea with R abdominal pain. CT evidence of left sided colitis and treated with Cipro and Flagyl for colitis and his GI bleed eventually resolved, though diarrhea has been persistent and chronic (Cdiff negative). He was found to have low hemoglobin levels that remained stable between 8 - 9. Subsequently during this admission he suffered an acute ischemic stroke for he was evaluated by neurology and cardiology and treated with dual antiplatelet therapy. He had acute kidney injury and hypernatremia which was resolved with IV fluid hydrations under management of arcade attendant. While in subacute rehab for rehabilitation, pt represented with bloody stools and dropping hemoglobin. Pt evaluated by Dr. Valero and team for dizziness and inability to fully engage in therapy. [facility]. Plan: GI Bleed -GI Dr. Calvert: colonoscopy 02/11/2019: stricture with biopsy; barium enema resulting findings for stricture --Bx rectum: focally active inflammation with crypt distortion and grandular epithelial reactive changes. No dysplasia or granulomas are seen. -Gen surg: Dr. Garcia: plan for loop colostomy today -FOBT +; stool fat: normal -GI Bleeding scan: negative for active bleed; C. diff negative. -ASA and plavix discontinued 2/2 GI bleed -IVF: D5 1/2 NS K 40 meq -NPO -c/w sucralfate -f/u: stool: culture, giardia, OP -c/w: monitoring GI bleed, vitals Anemia, chronic -H/H: 9.5/30.1 -s/p PRBC x 3 units transfused -Type and cross match for 2 units ordered d/t active bleed -s/p IV venofer -pt to start po iron -monitor for bleed, hgb level and vitals UC, chronic -with strictures -GI Dr. Calvert: for loop colostomy today -c/w Mesalamine Afib -new onset this admission -on tele monitor -[id number] score: 6 --rate control with meoprolol 5mg IVP q4 --CI to asa/plavix due to acute hx of active GI bleed -Cardiology Dr. Potts: further recs appreciated --Considering Watchman procedure Scalp laceration 2/2 fall -stitches x2 -pt reported mild headache -ct head without: Stable head CT exam with no definitive acute intracranial findings by standard CT criteria. Bilateral chronic occipital lobe infarctions identified once again as well as left basal ganglia chronic lacunes. Stable age related neuro degenerative changes identified. -monitor vitals, progression, neuro deficits CKD -Stage 3 -acute on chronic kidney disease with solitary R kidney. -Nephrology: Dr. 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 Sanchez; f/u neuro OP -c/w atorvastatin Dementia -c/w memantine -reorient as needed Esophagitis, acute -s/p Diflucan -Pt tolerated PO liquid Rhinitis -c/w Fluticasone prn DVT/wound prophylaxis -scd (recent active GI bleed) -c/w Proshield Gait instability -PT/OT eval/treat -fall precautions Pt is medically optimized for surgery Case and plan d/w Dr. Priyanka Collier MD PGY-2 <Gatito Mathew - Last Filed: 02/17/19 13:11> Objective - Vital Signs/Intake and Output Vital Signs (last 24 hours): Temp Pulse Resp BP Pulse Ox 97.5 F L 66 18 110/68 100 02/17/19 11:45 02/17/19 11:45 02/17/19 11:45 02/17/19 11:45 02/17/19 11:45 Intake and Output: 02/17/19 02/17/19 11:59 23:59 Intake Total 900 Output Total 753 Balance 147 - Medications Medications: Current Medications Acetaminophen (Tylenol 325mg Tab) 650 mg PO Q6 PRN PRN Reason: Pain, Mild (1-3) Last Admin: 02/13/19 10:38 Dose: 650 mg Atorvastatin Calcium (Lipitor) 40 mg PO DAILY [facility] Last Admin: 02/17/19 10:10 Dose: 40 mg Benzocaine/Menthol (Cepacol Sore Throat) 1 alysa PO Q3 PRN PRN Reason: Sore Throat Dextrose (Dextrose 50% Inj) 0 ml IV STAT PRN; Protocol PRN Reason: Hypoglycemia Protocol Last Admin: 02/06/19 05:35 Dose: 25 ml Dextrose (Glutose 15) 0 gm PO ONCE PRN; Protocol PRN Reason: Hypoglycemia Protocol Digoxin (Lanoxin) 0.25 mg IVP DAILY [facility] Last Admin: 02/17/19 11:18 Dose: 0.25 mg Dimethicone (Proshield Plus Skin Protectant) 1 applic TOP Q8 PRN PRN Reason: derm Last Admin: 02/14/19 09:50 Dose: 1 applic Ergocalciferol (Drisdol 50,000 Intl Units Cap) 1 cap PO FR [facility] Last Admin: 02/15/19 16:47 Dose: Not Given Fluticasone Propionate (Flonase) 2 spr PRIYA DAILY [facility] Last Admin: 02/17/19 10:09 Dose: 2 spr Glucagon (Glucagen Diagnostic Kit) 0 mg IM STAT PRN; Protocol PRN Reason: Hypoglycemia Protocol Iron Sucrose 100 mg/ Sodium (Chloride) 105 mls @ 105 mls/hr IVPB DAILY [facility] Last Admin: 02/12/19 12:07 Dose: 105 mls/hr Insulin Human Regular (Humulin R) 0 units SC ACHS [facility]; Protocol Last Admin: 02/17/19 11:24 Dose: Not Given Memantine (Namenda) 10 mg PO BID [facility] Last Admin: 02/17/19 10:11 Dose: 10 mg Mesalamine (Rowasa Enema) 4 gm RC HS [facility] Last Admin: 02/16/19 21:28 Dose: Not Given Methylprednisolone (Solu-Medrol) 10 mg IVP BID [facility] Last Admin: 02/17/19 10:12 Dose: 10 mg Metoprolol Tartrate (Lopressor) 2.5 mg IVP Q3 [facility] Last Admin: 02/17/19 10:11 Dose: 2.5 mg Sennosides (Senokot Tab) 17.2 mg PO HS [facility] Last Admin: 02/16/19 21:25 Dose: 17.2 mg Sitagliptin Phosphate (Januvia) 25 mg PO DAILY [facility] Last Admin: 02/17/19 10:10 Dose: 25 mg Sucralfate (Carafate Oral Susp) 1 gm PO QID [facility] Last Admin: 02/17/19 10:08 Dose: 1 gm Tamsulosin HCl (Flomax) 0.4 mg PO DAILY [facility] Last Admin: 02/17/19 10:09 Dose: 0.4 mg - Labs Labs: 02/17/19 05:02 02/17/19 05:02 PT 12.8 Seconds (9.8-13.1) 02/14/19 10:00 INR 1.1 02/14/19 10:00 APTT 30.6 Seconds (25.6-37.1) 02/14/19 10:00 Assessment and Plan - Assessment and Plan (Free Text) Plan: Patient was personally seen and examined by me in rounds with residents. Available labs and diagnostic data reviewed. Case, Patient's condition and management plan discussed with residents in rounds. Agree with resident's progress note. Plan: As ordered.
[2019-02-15 06:58] LABS: ALB/GLOB RATIO 0.8 (1.0-2.1); ALBUMIN 2.2 g/dL (3.5-5.0); CALCIUM 7.9 mg/dL (8.4-10.2)
--- NOTE | 2019-02-15 08:14 | CP.PCM.PN ---
Subjective - Date & Time of Evaluation Date of Evaluation: 02/15/19 Time of Evaluation: 08:13 - Subjective Subjective: GI NOTE FOR DR. CLARKE 78M seen and examined at bedside. Patient underwent negative GI bleeding scan yesterday. Will be going for loop colostomy today. Objective - Vital Signs/Intake and Output Vital Signs (last 24 hours): Temp Pulse Resp BP Pulse Ox 97.3 F L 82 20 112/72 98 02/15/19 05:00 02/15/19 05:00 02/15/19 05:00 02/15/19 05:00 02/15/19 05:00 - Medications Medications: Current Medications Acetaminophen (Tylenol 325mg Tab) 650 mg PO Q6 PRN PRN Reason: Pain, Mild (1-3) Last Admin: 02/13/19 10:38 Dose: 650 mg Atorvastatin Calcium (Lipitor) 40 mg PO DAILY [facility] Last Admin: 02/14/19 10:10 Dose: Not Given Benzocaine/Menthol (Cepacol Sore Throat) 1 alysa PO Q3 PRN PRN Reason: Sore Throat Dextrose (Dextrose 50% Inj) 0 ml IV STAT PRN; Protocol PRN Reason: Hypoglycemia Protocol Last Admin: 02/06/19 05:35 Dose: 25 ml Dextrose (Glutose 15) 0 gm PO ONCE PRN; Protocol PRN Reason: Hypoglycemia Protocol Dimethicone (Proshield Plus Skin Protectant) 1 applic TOP Q8 PRN PRN Reason: derm Last Admin: 02/14/19 09:50 Dose: 1 applic Ergocalciferol (Drisdol 50,000 Intl Units Cap) 1 cap PO FR [facility] Last Admin: 02/08/19 16:12 Dose: 1 cap Fluticasone Propionate (Flonase) 2 spr PRIYA DAILY [facility] Last Admin: 02/14/19 10:11 Dose: 2 spr Glucagon (Glucagen Diagnostic Kit) 0 mg IM STAT PRN; Protocol PRN Reason: Hypoglycemia Protocol Iron Sucrose 100 mg/ Sodium (Chloride) 105 mls @ 105 mls/hr IVPB DAILY [facility] Last Admin: 02/12/19 12:07 Dose: 105 mls/hr Lactated Ringer's (Lactated Ringer's) 1,000 mls @ 120 mls/hr IV .Q8H20M [facility] Last Admin: 02/15/19 04:42 Dose: 120 mls/hr Insulin Human Regular (Humulin R) 0 units SC ACHS [facility]; Protocol Last Admin: 02/14/19 21:05 Dose: Not Given Memantine (Namenda) 10 mg PO BID [facility] Last Admin: 02/14/19 17:13 Dose: Not Given Mesalamine (Rowasa Enema) 4 gm RC HS [facility] Last Admin: 02/14/19 21:37 Dose: Not Given Methylprednisolone (Solu-Medrol) 10 mg IVP TID [facility] Last Admin: 02/14/19 18:30 Dose: 10 mg Metoprolol Tartrate (Lopressor) 5 mg IVP Q4 [facility] Last Admin: 02/15/19 04:54 Dose: 5 mg Sennosides (Senokot Tab) 17.2 mg PO HS [facility] Last Admin: 02/14/19 21:33 Dose: 17.2 mg Sitagliptin Phosphate (Januvia) 25 mg PO DAILY [facility] Last Admin: 02/14/19 10:10 Dose: Not Given Sucralfate (Carafate Oral Susp) 1 gm PO QID [facility] Last Admin: 02/14/19 21:32 Dose: 1 gm Tamsulosin HCl (Flomax) 0.4 mg PO DAILY [facility] Last Admin: 02/14/19 10:11 Dose: Not Given - Labs Labs: 02/15/19 05:00 02/15/19 05:00 PT 12.8 Seconds (9.8-13.1) 02/14/19 10:00 INR 1.1 02/14/19 10:00 APTT 30.6 Seconds (25.6-37.1) 02/14/19 10:00 - Constitutional Appears: Non-toxic, No Acute Distress - Eye Exam Eye Exam: EOMI, PERRL - Respiratory Exam Respiratory Exam: Clear to Ausculation Bilateral, NORMAL BREATHING PATTERN - Cardiovascular Exam Cardiovascular Exam: REGULAR RHYTHM, +S1, +S2 - GI/Abdominal Exam GI & Abdominal Exam: Soft. absent: Distended, Firm, Guarding, Rigid, Tenderness, Rebound - Neurological Exam Neurological Exam: Awake Assessment and Plan - Assessment and Plan (Free Text) Assessment: 78M with rectal bleed and rectal stricture Plan: - cleared by cardio and medicine - plan for loop colostomy today with surgery team Further recs per Dr. Enrkie Tiwari, PGY3
--- NOTE | 2019-02-15 08:52 | CP.PCM.PCO ---
Physician Communication Note - Physician Communication Note Physician Communication Note: Patient for OR for loop colostomy this AM. Keep NPO.
[2019-02-15] MEDS ORDERED: Metoprolol 1 mg/ml Inj IVP ONE (09:02)
[2019-02-15] MEDS: Sucralfate 1 gm/10 ml Oral Susp UD PO SCH ×4 (09:27→22:19)
[2019-02-15] MEDS: Insulin Regular 100 units/ml SC SCH ×4 (09:29→22:19)
[2019-02-15] MEDS: MethylPREDNISolone 40 mg Vial IVP SCH ×3 (09:33→17:30)
--- NOTE | 2019-02-15 13:37 | CP.PCM.PN ---
Subjective - Date & Time of Evaluation Date of Evaluation: 02/15/19 Time of Evaluation: 01:00 - Subjective Subjective: Apprars comfortable in bed Objective - Vital Signs/Intake and Output Vital Signs (last 24 hours): Temp Pulse Resp BP Pulse Ox 97.5 F L 106 H 18 102/58 L 98 02/15/19 12:10 02/15/19 12:10 02/15/19 12:10 02/15/19 12:10 02/15/19 12:10 - Medications Medications: Current Medications Acetaminophen (Tylenol 325mg Tab) 650 mg PO Q6 PRN PRN Reason: Pain, Mild (1-3) Last Admin: 02/13/19 10:38 Dose: 650 mg Atorvastatin Calcium (Lipitor) 40 mg PO DAILY [facility] Last Admin: 02/15/19 09:29 Dose: Not Given Benzocaine/Menthol (Cepacol Sore Throat) 1 alysa PO Q3 PRN PRN Reason: Sore Throat Dextrose (Dextrose 50% Inj) 0 ml IV STAT PRN; Protocol PRN Reason: Hypoglycemia Protocol Last Admin: 02/06/19 05:35 Dose: 25 ml Dextrose (Glutose 15) 0 gm PO ONCE PRN; Protocol PRN Reason: Hypoglycemia Protocol Dimethicone (Proshield Plus Skin Protectant) 1 applic TOP Q8 PRN PRN Reason: derm Last Admin: 02/14/19 09:50 Dose: 1 applic Ergocalciferol (Drisdol 50,000 Intl Units Cap) 1 cap PO FR [facility] Last Admin: 02/08/19 16:12 Dose: 1 cap Fluticasone Propionate (Flonase) 2 spr PRIYA DAILY [facility] Last Admin: 02/15/19 09:28 Dose: 2 spr Glucagon (Glucagen Diagnostic Kit) 0 mg IM STAT PRN; Protocol PRN Reason: Hypoglycemia Protocol Iron Sucrose 100 mg/ Sodium (Chloride) 105 mls @ 105 mls/hr IVPB DAILY [facility] Last Admin: 02/12/19 12:07 Dose: 105 mls/hr Lactated Ringer's (Lactated Ringer's) 1,000 mls @ 120 mls/hr IV .Q8H20M [facility] Last Admin: 02/15/19 04:42 Dose: 120 mls/hr Insulin Human Regular (Humulin R) 0 units SC ACHS [facility]; Protocol Last Admin: 02/15/19 09:29 Dose: Not Given Memantine (Namenda) 10 mg PO BID [facility] Last Admin: 02/15/19 09:33 Dose: Not Given Mesalamine (Rowasa Enema) 4 gm RC [facility] Last Admin: 02/14/19 21:37 Dose: Not Given Methylprednisolone (Solu-Medrol) 10 mg IVP TID [facility] Last Admin: 02/15/19 09:33 Dose: 10 mg Metoprolol Tartrate (Lopressor) 5 mg IVP Q4 [facility] Last Admin: 02/15/19 09:32 Dose: 5 mg Sennosides (Senokot Tab) 17.2 mg PO HS [facility] Last Admin: 02/14/19 21:33 Dose: 17.2 mg Sitagliptin Phosphate (Januvia) 25 mg PO DAILY [facility] Last Admin: 02/15/19 09:29 Dose: Not Given Sucralfate (Carafate Oral Susp) 1 gm PO QID [facility] Last Admin: 02/15/19 09:27 Dose: Not Given Tamsulosin HCl (Flomax) 0.4 mg PO DAILY [facility] Last Admin: 02/15/19 09:27 Dose: Not Given - Labs Labs: 02/15/19 05:00 02/15/19 05:00 PT 12.8 Seconds (9.8-13.1) 02/14/19 10:00 INR 1.1 02/14/19 10:00 APTT 30.6 Seconds (25.6-37.1) 02/14/19 10:00 - Constitutional Appears: No Acute Distress - Head Exam Head Exam: ATRAUMATIC, NORMOCEPHALIC - Eye Exam Eye Exam: Normal appearance - ENT Exam ENT Exam: Mucous Membranes Moist - Neck Exam Additional comments: No jugular venous didtension @ 35 degrees. - Respiratory Exam Respiratory Exam: NORMAL BREATHING PATTERN Additional comments: Lungs clear - Cardiovascular Exam Additional comments: A.fib, 105/min - GI/Abdominal Exam GI & Abdominal Exam: Soft - Extremities Exam Additional comments: No edema Assessment and Plan - Assessment and Plan (Free Text) Assessment: CKD 111/ Solitary Rt kidnet Colonic stricture, Hx/o ulcerative colitis GI bleed. New onset of A. fib with moderate ventricular response Plan: Creatinine remains stable Blood pressures are stable For OR today Monitoe UO & renal parameters.
--- NOTE | 2019-02-15 15:44 | CP.PCM.PN ---
Subjective - Date & Time of Evaluation Date of Evaluation: 02/15/19 Time of Evaluation: 09:00 - Subjective Subjective: Formation of loop colostomy cancelled. HR noted to be in ~130-150's, AFib. Patient needs to be medically optimized prior to operative intervention. Objective - Vital Signs/Intake and Output Vital Signs (last 24 hours): Temp Pulse Resp BP Pulse Ox 97.5 F L 143 H 18 102/58 L 98 02/15/19 12:10 02/15/19 14:58 02/15/19 12:10 02/15/19 12:10 02/15/19 12:10 - Medications Medications: Current Medications Acetaminophen (Tylenol 325mg Tab) 650 mg PO Q6 PRN PRN Reason: Pain, Mild (1-3) Last Admin: 02/13/19 10:38 Dose: 650 mg Atorvastatin Calcium (Lipitor) 40 mg PO DAILY [facility] Last Admin: 02/15/19 09:29 Dose: Not Given Benzocaine/Menthol (Cepacol Sore Throat) 1 alysa PO Q3 PRN PRN Reason: Sore Throat Dextrose (Dextrose 50% Inj) 0 ml IV STAT PRN; Protocol PRN Reason: Hypoglycemia Protocol Last Admin: 02/06/19 05:35 Dose: 25 ml Dextrose (Glutose 15) 0 gm PO ONCE PRN; Protocol PRN Reason: Hypoglycemia Protocol Dimethicone (Proshield Plus Skin Protectant) 1 applic TOP Q8 PRN PRN Reason: derm Last Admin: 02/14/19 09:50 Dose: 1 applic Ergocalciferol (Drisdol 50,000 Intl Units Cap) 1 cap PO FR [facility] Last Admin: 02/08/19 16:12 Dose: 1 cap Fluticasone Propionate (Flonase) 2 spr PRIYA DAILY [facility] Last Admin: 02/15/19 09:28 Dose: 2 spr Glucagon (Glucagen Diagnostic Kit) 0 mg IM STAT PRN; Protocol PRN Reason: Hypoglycemia Protocol Iron Sucrose 100 mg/ Sodium (Chloride) 105 mls @ 105 mls/hr IVPB DAILY [facility] Last Admin: 02/12/19 12:07 Dose: 105 mls/hr Lactated Ringer's (Lactated Ringer's) 1,000 mls @ 120 mls/hr IV .Q8H20M [facility] Last Admin: 02/15/19 04:42 Dose: 120 mls/hr Insulin Human Regular (Humulin R) 0 units SC ACHS [facility]; Protocol Last Admin: 02/15/19 09:29 Dose: Not Given Memantine (Namenda) 10 mg PO BID [facility] Last Admin: 02/15/19 09:33 Dose: Not Given Mesalamine (Rowasa Enema) 4 gm RC HS [facility] Last Admin: 02/14/19 21:37 Dose: Not Given Methylprednisolone (Solu-Medrol) 10 mg IVP TID [facility] Last Admin: 02/15/19 09:33 Dose: 10 mg Metoprolol Tartrate (Lopressor) 5 mg IVP Q4 [facility] Last Admin: 02/15/19 09:32 Dose: 5 mg Sennosides (Senokot Tab) 17.2 mg PO HS [facility] Last Admin: 02/14/19 21:33 Dose: 17.2 mg Sitagliptin Phosphate (Januvia) 25 mg PO DAILY [facility] Last Admin: 02/15/19 09:29 Dose: Not Given Sucralfate (Carafate Oral Susp) 1 gm PO QID [facility] Last Admin: 02/15/19 09:27 Dose: Not Given Tamsulosin HCl (Flomax) 0.4 mg PO DAILY [facility] Last Admin: 02/15/19 09:27 Dose: Not Given - Labs Labs: 02/15/19 05:00 02/15/19 05:00 PT 12.8 Seconds (9.8-13.1) 02/14/19 10:00 INR 1.1 02/14/19 10:00 APTT 30.6 Seconds (25.6-37.1) 02/14/19 10:00
[2019-02-15] MEDS ORDERED: Digoxin 500 mcg/2ml (0.5 mg/2ml) Inj IVP ONE (16:18)
[2019-02-15] MEDS ORDERED: Sodium Chloride 0.9% 500 ML IV ONE (16:18)
[2019-02-15] MEDS: Ergocalciferol 50,000 Intl Units Cap PO SCH (16:47)
--- NOTE | 2019-02-15 19:31 | CP.PCM.PN ---
Subjective - Date & Time of Evaluation Date of Evaluation: 02/15/19 Time of Evaluation: 13:55 - Subjective Subjective: PT SEEN AND EXAMINED. COMFORTABLE. LUNGS CLEAR, NO CP. AFIB ON TELE WITH RATE OF 120-130 AT REST. PTS BP LOW, 102/68. PT ON METOPROLOL IVP. PT WITH RECURRENT GIB YESTERDAY. BLEEDING SCAN NEGATIVE. Objective - Vital Signs/Intake and Output Vital Signs (last 24 hours): Temp Pulse Resp BP Pulse Ox 97.4 F L 73 18 114/73 97 02/15/19 16:27 02/15/19 16:27 02/15/19 16:27 02/15/19 16:27 02/15/19 16:27 Intake and Output: 02/15/19 02/16/19 18:59 06:59 Intake Total 1820 Balance 1820 - Medications Medications: Current Medications Acetaminophen (Tylenol 325mg Tab) 650 mg PO Q6 PRN PRN Reason: Pain, Mild (1-3) Last Admin: 02/13/19 10:38 Dose: 650 mg Atorvastatin Calcium (Lipitor) 40 mg PO DAILY [facility] Last Admin: 02/15/19 09:29 Dose: Not Given Benzocaine/Menthol (Cepacol Sore Throat) 1 alysa PO Q3 PRN PRN Reason: Sore Throat Dextrose (Dextrose 50% Inj) 0 ml IV STAT PRN; Protocol PRN Reason: Hypoglycemia Protocol Last Admin: 02/06/19 05:35 Dose: 25 ml Dextrose (Glutose 15) 0 gm PO ONCE PRN; Protocol PRN Reason: Hypoglycemia Protocol Dimethicone (Proshield Plus Skin Protectant) 1 applic TOP Q8 PRN PRN Reason: derm Last Admin: 02/14/19 09:50 Dose: 1 applic Ergocalciferol (Drisdol 50,000 Intl Units Cap) 1 cap PO FR [facility] Last Admin: 02/15/19 16:47 Dose: Not Given Fluticasone Propionate (Flonase) 2 spr PRIYA DAILY [facility] Last Admin: 02/15/19 09:28 Dose: 2 spr Glucagon (Glucagen Diagnostic Kit) 0 mg IM STAT PRN; Protocol PRN Reason: Hypoglycemia Protocol Iron Sucrose 100 mg/ Sodium (Chloride) 105 mls @ 105 mls/hr IVPB DAILY [facility] Last Admin: 02/12/19 12:07 Dose: 105 mls/hr Lactated Ringer's (Lactated Ringer's) 1,000 mls @ 120 mls/hr IV .Q8H20M [facility] Last Admin: 02/15/19 04:42 Dose: 120 mls/hr Insulin Human Regular (Humulin R) 0 units SC ACHS [facility]; Protocol Last Admin: 02/15/19 16:49 Dose: Not Given Memantine (Namenda) 10 mg PO BID [facility] Last Admin: 02/15/19 16:55 Dose: Not Given Mesalamine (Rowasa Enema) 4 gm RC [facility] Last Admin: 02/14/19 21:37 Dose: Not Given Methylprednisolone (Solu-Medrol) 10 mg IVP TID [facility] Last Admin: 02/15/19 17:30 Dose: 10 mg Sennosides (Senokot Tab) 17.2 mg PO [facility] Last Admin: 02/14/19 21:33 Dose: 17.2 mg Sitagliptin Phosphate (Januvia) 25 mg PO DAILY [facility] Last Admin: 02/15/19 09:29 Dose: Not Given Sucralfate (Carafate Oral Susp) 1 gm PO QID [facility] Last Admin: 02/15/19 16:47 Dose: Not Given Tamsulosin HCl (Flomax) 0.4 mg PO DAILY [facility] Last Admin: 02/15/19 09:27 Dose: Not Given - Labs Labs: 02/15/19 05:00 02/15/19 05:00 PT 12.8 Seconds (9.8-13.1) 02/14/19 10:00 INR 1.1 02/14/19 10:00 APTT 30.6 Seconds (25.6-37.1) 02/14/19 10:00 - Constitutional Appears: Non-toxic - Head Exam Head Exam: ATRAUMATIC, NORMAL INSPECTION, NORMOCEPHALIC - Eye Exam Eye Exam: EOMI, Normal appearance, PERRL. absent: Conjunctival injection, Nystagmus, Periorbital swelling, Periorbital tenderness, Scleral icterus Pupil Exam: NORMAL ACCOMODATION, PERRL - ENT Exam ENT Exam: Mucous Membranes Dry, Normal Exam. absent: Normal External Ear Exam, Normal Oropharynx, TM's Normal Bilaterally - Neck Exam Neck Exam: Full ROM, Normal Inspection. absent: Lymphadenopathy, Meningismus, Tenderness, Thyromegaly - Respiratory Exam Respiratory Exam: Clear to Ausculation Bilateral, NORMAL BREATHING PATTERN. absent: Accessory Muscle Use, Chest Wall Tenderness, Decreased Breath Sounds, Prolonged Expiratory Phase, Rales, Rhonchi, Wheezes, Respiratory Distress, Stridor - Cardiovascular Exam Cardiovascular Exam: Tachycardia, Irregular Rhythm, +S1, +S2, Murmur. absent: Bradycardia, Clicks, Diastolic murmur, Gallop, REGULAR RHYTHM, JVD, RRR, Rubs, +S4 - GI/Abdominal Exam GI & Abdominal Exam: Distended, Soft, Tenderness, Diminished Bowel Sounds, Normal Bowel Sounds. absent: Bruit, Firm, Guarding, Rigid, Hernia, Hyperactive Bowel Sounds, Hypoactive Bowel Sounds, Organomegaly, Pulsatile Mass, Rebound, Mass - Rectal Exam Rectal Exam: Deferred - Extremities Exam Extremities Exam: Full ROM, Normal Capillary Refill, Normal Inspection. absent: Calf Tenderness, Joint Swelling, Pedal Edema, Tenderness - Back Exam Back Exam: NORMAL INSPECTION. absent: CVA tenderness (L), CVA tenderness (R), Full ROM, muscle spasm, paraspinal tenderness, rash noted, tenderness, vertebral tenderness - Neurological Exam Neurological Exam: Alert, Awake, CN II-XII Intact, Normal Gait, Oriented x3. absent: Abnormal Gait, Altered, Motor Sensory Deficit, Reflexes Normal - Psychiatric Exam Psychiatric exam: Normal Affect, Normal Mood. absent: Agitated, Anxious, Depressed, Flat Affect, Homicidal Ideation, Manic, Suicidal Ideation - Skin Skin Exam: Dry, Intact, Normal Color, Warm. absent: Abrasion, Cyanosis, Diaphoretic, Erythema, Mottled, Pallor, Pallor, Petechiae, Rash, Urticaria, Vesicles Assessment and Plan (1) Pre-operative cardiovascular examination Status: Acute (2) New onset a-fib Status: Acute (3) Anemia Status: Acute (4) GI bleed Status: Resolved (5) Ischemic stroke Status: Resolved (6) HTN (hypertension) Status: Chronic (7) High triglycerides Status: Chronic (8) Ulcerative colitis, chronic Status: Chronic (9) Fall Status: Acute - Assessment and Plan (Free Text) Plan: PT CANNOT TOLERATE CARDIZEM DRIP DUE TO LOW BP. IV METOPROLOL 5MG X1 GIVEN AT BEDSIDE WITHOUT CHANGE IN HR. I SUSPECT PT IS DRY GIVEN LACK OF APPETITE. WILL GIVE IVF AND LOAD DIGOXIN. DOCTOR ERIC CONSULTED FOR EP. IF BP IMPROVES CAN USE CARDIZEM DRIP. MAY ALSO WANT TO CONSIDER ESMOLOL DRIP CHRIS-OPERATIVELY. PT DEVELOPED AFIB DURING THIS HOSPITALIZATION. HE HAS NO PRIOR HISTORY. I SUSPECT AFIB IS DUE TO UNDERLYING ABD PATHOLOGY AND GIB. WOULD TRANSFUSE TO HB ABOVE 9. KEEP K OVER 4.5 AND MAG OVER 2. NS AT 125CC/HR X 3 LITERS. MONITOR ON TELE. CHECK DIG LEVEL AND EKG IN AM. DW SURGICAL TEAM AT LENGTH. PT MAY PROCEED WITH SEMI-URGENT SURGERY. USE ESMOLOL FOR INTRA-OP RATE CONTROL. 75 MIN TOTAL CARE TIME. WILL FOLLOW.
[2019-02-15] MEDS: Sodium Chloride 0.9% 1,000 ML IV SCH (20:45)
[2019-02-16] MEDS: Digoxin 0.05 mg/mL Elixir 5mL PO SCH ×2 (01:20→08:53)
[2019-02-16] MEDS: Metoprolol 1 mg/ml Inj IVP SCH ×7 (01:20→21:19)
[2019-02-16] MEDS: Sodium Chloride 0.9% 1,000 ML IV SCH ×2 (03:19→13:02)
[2019-02-16] MEDS: Insulin Regular 100 units/ml SC SCH ×4 (06:30→22:00)
[2019-02-16 07:30] LABS: HEMOGLOBIN 9.5 g/dL (12.0-18.0); MEAN CELL VOLUME 84.6 fl (80.0-94.0); MEAN CORPUSCULAR HEMOGLOBIN 26.7 pg (27.0-31.0); MEAN CORPUSCULAR HGB CONC 31.5 g/dL (33.0-37.0); RBC 3.57 Mil/uL (4.40-5.90); RED CELL DISTRIBUTION WIDTH 22.5 % (11.5-14.5); WHITE BLOOD COUNT 6.5 K/uL (4.8-10.8)
[2019-02-16 07:50] LABS: ALB/GLOB RATIO 0.8 (1.0-2.1); ALBUMIN 2.2 g/dL (3.5-5.0); CALCIUM 7.5 mg/dL (8.4-10.2)
[2019-02-16] MEDS: MethylPREDNISolone 40 mg Vial IVP SCH ×3 (08:52→17:14)
[2019-02-16] MEDS: Sucralfate 1 gm/10 ml Oral Susp UD PO SCH ×4 (08:55→21:18)
--- NOTE | 2019-02-16 13:18 | CP.PCM.PN ---
Subjective - Date & Time of Evaluation Date of Evaluation: 02/16/19 Time of Evaluation: 12:50 - Subjective Subjective: Pt appears comfortable. No C/o SOB, palpitations Objective - Vital Signs/Intake and Output Vital Signs (last 24 hours): Temp Pulse Resp BP Pulse Ox 97.7 F 85 18 121/69 96 02/16/19 11:53 02/16/19 11:53 02/16/19 11:53 02/16/19 11:53 02/16/19 11:53 - Medications Medications: Current Medications Acetaminophen (Tylenol 325mg Tab) 650 mg PO Q6 PRN PRN Reason: Pain, Mild (1-3) Last Admin: 02/13/19 10:38 Dose: 650 mg Atorvastatin Calcium (Lipitor) 40 mg PO DAILY [facility] Last Admin: 02/16/19 12:59 Dose: 40 mg Benzocaine/Menthol (Cepacol Sore Throat) 1 alysa PO Q3 PRN PRN Reason: Sore Throat Dextrose (Dextrose 50% Inj) 0 ml IV STAT PRN; Protocol PRN Reason: Hypoglycemia Protocol Last Admin: 02/06/19 05:35 Dose: 25 ml Dextrose (Glutose 15) 0 gm PO ONCE PRN; Protocol PRN Reason: Hypoglycemia Protocol Digoxin (Lanoxin) 0.25 mg IVP DAILY [facility] Dimethicone (Proshield Plus Skin Protectant) 1 applic TOP Q8 PRN PRN Reason: derm Last Admin: 02/14/19 09:50 Dose: 1 applic Ergocalciferol (Drisdol 50,000 Intl Units Cap) 1 cap PO FR [facility] Last Admin: 02/15/19 16:47 Dose: Not Given Fluticasone Propionate (Flonase) 2 spr PRIYA DAILY [facility] Last Admin: 02/16/19 08:54 Dose: 2 spr Glucagon (Glucagen Diagnostic Kit) 0 mg IM STAT PRN; Protocol PRN Reason: Hypoglycemia Protocol Iron Sucrose 100 mg/ Sodium (Chloride) 105 mls @ 105 mls/hr IVPB DAILY [facility] Last Admin: 02/12/19 12:07 Dose: 105 mls/hr Sodium Chloride (Sodium Chloride 0.9%) 1,000 mls @ 125 mls/hr IV .Q8H [facility] Stop: 02/16/19 19:44 Last Admin: 02/16/19 13:02 Dose: 125 mls/hr Insulin Human Regular (Humulin R) 0 units SC ACHS [facility]; Protocol Last Admin: 02/16/19 12:51 Dose: Not Given Memantine (Namenda) 10 mg PO BID [facility] Last Admin: 02/16/19 08:52 Dose: 10 mg Mesalamine (Rowasa Enema) 4 gm RC HS [facility] Last Admin: 02/15/19 22:20 Dose: 4 gm Methylprednisolone (Solu-Medrol) 10 mg IVP TID [facility] Last Admin: 02/16/19 12:59 Dose: 10 mg Metoprolol Tartrate (Lopressor) 2.5 mg IVP Q3 [facility] Last Admin: 02/16/19 10:30 Dose: 2.5 mg Sennosides (Senokot Tab) 17.2 mg PO HS [facility] Last Admin: 02/15/19 22:19 Dose: 17.2 mg Sitagliptin Phosphate (Januvia) 25 mg PO DAILY [facility] Last Admin: 02/16/19 08:54 Dose: 25 mg Sucralfate (Carafate Oral Susp) 1 gm PO QID [facility] Last Admin: 02/16/19 13:10 Dose: 1 gm Tamsulosin HCl (Flomax) 0.4 mg PO DAILY [facility] Last Admin: 02/16/19 08:54 Dose: 0.4 mg - Labs Labs: 02/16/19 05:10 02/16/19 05:10 PT 12.8 Seconds (9.8-13.1) 02/14/19 10:00 INR 1.1 02/14/19 10:00 APTT 30.6 Seconds (25.6-37.1) 02/14/19 10:00 - Constitutional Appears: No Acute Distress - Head Exam Head Exam: ATRAUMATIC, NORMOCEPHALIC - Eye Exam Eye Exam: Normal appearance - Neck Exam Additional comments: No jugular venous distension - Respiratory Exam Respiratory Exam: NORMAL BREATHING PATTERN Additional comments: Lungs clear - Cardiovascular Exam Cardiovascular Exam: Irregular Rhythm Additional comments: A.fib 109/min - GI/Abdominal Exam Additional comments: Distended . No tenderness. - Extremities Exam Additional comments: No emema or cyanosis. - Psychiatric Exam Psychiatric exam: absent: Depressed Assessment and Plan - Assessment and Plan (Free Text) Assessment: Stage 11 kidney dis. Creat is stable UO not available but according to Pt is passing lot of urine A. fib with rapid ventricular respone. Is receiving igoxin GI bleed/ Hx/o ulcerative colitis Severe colonic stenosis. Plan: Monitor urine out put Monitor BP Surgery is deferred untill A,fib rate is controlled.
--- NOTE | 2019-02-16 19:35 | CP.PCM.PN ---
Subjective - Date & Time of Evaluation Date of Evaluation: 02/16/19 Time of Evaluation: 19:33 Objective - Vital Signs/Intake and Output Vital Signs (last 24 hours): Temp Pulse Resp BP Pulse Ox 98.0 F 87 20 118/77 96 02/16/19 16:04 02/16/19 17:14 02/16/19 16:04 02/16/19 17:14 02/16/19 16:04 - Medications Medications: Current Medications Acetaminophen (Tylenol 325mg Tab) 650 mg PO Q6 PRN PRN Reason: Pain, Mild (1-3) Last Admin: 02/13/19 10:38 Dose: 650 mg Atorvastatin Calcium (Lipitor) 40 mg PO DAILY [facility] Last Admin: 02/16/19 12:59 Dose: 40 mg Benzocaine/Menthol (Cepacol Sore Throat) 1 alysa PO Q3 PRN PRN Reason: Sore Throat Dextrose (Dextrose 50% Inj) 0 ml IV STAT PRN; Protocol PRN Reason: Hypoglycemia Protocol Last Admin: 02/06/19 05:35 Dose: 25 ml Dextrose (Glutose 15) 0 gm PO ONCE PRN; Protocol PRN Reason: Hypoglycemia Protocol Digoxin (Lanoxin) 0.25 mg IVP DAILY [facility] Dimethicone (Proshield Plus Skin Protectant) 1 applic TOP Q8 PRN PRN Reason: derm Last Admin: 02/14/19 09:50 Dose: 1 applic Ergocalciferol (Drisdol 50,000 Intl Units Cap) 1 cap PO FR [facility] Last Admin: 02/15/19 16:47 Dose: Not Given Fluticasone Propionate (Flonase) 2 spr PRIYA DAILY [facility] Last Admin: 02/16/19 08:54 Dose: 2 spr Glucagon (Glucagen Diagnostic Kit) 0 mg IM STAT PRN; Protocol PRN Reason: Hypoglycemia Protocol Iron Sucrose 100 mg/ Sodium (Chloride) 105 mls @ 105 mls/hr IVPB DAILY [facility] Last Admin: 02/12/19 12:07 Dose: 105 mls/hr Sodium Chloride (Sodium Chloride 0.9%) 1,000 mls @ 125 mls/hr IV .Q8H [facility] Stop: 02/16/19 19:44 Last Admin: 02/16/19 13:02 Dose: 125 mls/hr Potassium Chloride (Potassium Chloride 20 Meq/100 Ml) 100 mls @ 50 mls/hr IVPB Q2 [facility] Stop: 02/16/19 23:59 Insulin Human Regular (Humulin R) 0 units SC ACHS [facility]; Protocol Last Admin: 02/16/19 17:07 Dose: Not Given Memantine (Namenda) 10 mg PO BID [facility] Last Admin: 02/16/19 17:16 Dose: 10 mg Mesalamine (Rowasa Enema) 4 gm RC HS [facility] Last Admin: 02/15/19 22:20 Dose: 4 gm Methylprednisolone (Solu-Medrol) 10 mg IVP TID [facility] Last Admin: 02/16/19 17:14 Dose: 10 mg Metoprolol Tartrate (Lopressor) 2.5 mg IVP Q3 [facility] Last Admin: 02/16/19 17:14 Dose: 2.5 mg Sennosides (Senokot Tab) 17.2 mg PO HS [facility] Last Admin: 02/15/19 22:19 Dose: 17.2 mg Sitagliptin Phosphate (Januvia) 25 mg PO DAILY [facility] Last Admin: 02/16/19 08:54 Dose: 25 mg Sucralfate (Carafate Oral Susp) 1 gm PO QID [facility] Last Admin: 02/16/19 17:14 Dose: 1 gm Tamsulosin HCl (Flomax) 0.4 mg PO DAILY [facility] Last Admin: 02/16/19 08:54 Dose: 0.4 mg - Labs Labs: 02/16/19 05:10 02/16/19 05:10 PT 12.8 Seconds (9.8-13.1) 02/14/19 10:00 INR 1.1 02/14/19 10:00 APTT 30.6 Seconds (25.6-37.1) 02/14/19 10:00 Assessment and Plan (1) Pre-operative cardiovascular examination Status: Acute (2) New onset a-fib Status: Acute (3) Anemia Status: Acute (4) GI bleed Status: Resolved (5) Ischemic stroke Status: Resolved (6) HTN (hypertension) Status: Chronic (7) High triglycerides Status: Chronic (8) Ulcerative colitis, chronic Status: Chronic (9) Fall Status: Acute - Assessment and Plan (Free Text) Plan: cont dig and low dose bb. check dig level in am check ekg in am monitor radha ep consulted awaiting surgery
[2019-02-16] MEDS: Potassium Chloride 20 mEq 100 ML IVPB SCH ×3 (20:32→21:17)
--- NOTE | 2019-02-17 00:10 | CP.PCM.PN ---
Subjective - Date & Time of Evaluation Date of Evaluation: 02/16/19 Time of Evaluation: 23:50 - Subjective Subjective: Patient without GI complaints. No current bleeding. Objective - Vital Signs/Intake and Output Vital Signs (last 24 hours): Temp Pulse Resp BP Pulse Ox 97.4 F L 81 18 133/79 100 02/16/19 19:47 02/16/19 21:19 02/16/19 19:47 02/16/19 21:19 02/16/19 19:47 - Medications Medications: Current Medications Acetaminophen (Tylenol 325mg Tab) 650 mg PO Q6 PRN PRN Reason: Pain, Mild (1-3) Last Admin: 02/13/19 10:38 Dose: 650 mg Atorvastatin Calcium (Lipitor) 40 mg PO DAILY [facility] Last Admin: 02/16/19 12:59 Dose: 40 mg Benzocaine/Menthol (Cepacol Sore Throat) 1 alysa PO Q3 PRN PRN Reason: Sore Throat Dextrose (Dextrose 50% Inj) 0 ml IV STAT PRN; Protocol PRN Reason: Hypoglycemia Protocol Last Admin: 02/06/19 05:35 Dose: 25 ml Dextrose (Glutose 15) 0 gm PO ONCE PRN; Protocol PRN Reason: Hypoglycemia Protocol Digoxin (Lanoxin) 0.25 mg IVP DAILY [facility] Dimethicone (Proshield Plus Skin Protectant) 1 applic TOP Q8 PRN PRN Reason: derm Last Admin: 02/14/19 09:50 Dose: 1 applic Ergocalciferol (Drisdol 50,000 Intl Units Cap) 1 cap PO FR [facility] Last Admin: 02/15/19 16:47 Dose: Not Given Fluticasone Propionate (Flonase) 2 spr PRIYA DAILY [facility] Last Admin: 02/16/19 08:54 Dose: 2 spr Glucagon (Glucagen Diagnostic Kit) 0 mg IM STAT PRN; Protocol PRN Reason: Hypoglycemia Protocol Iron Sucrose 100 mg/ Sodium (Chloride) 105 mls @ 105 mls/hr IVPB DAILY [facility] Last Admin: 02/12/19 12:07 Dose: 105 mls/hr Methylprednisolone 10 mg/ (Sodium Chloride) 50 mls @ 100 mls/hr IV BID [facility] Insulin Human Regular (Humulin R) 0 units SC ACHS [facility]; Protocol Last Admin: 02/16/19 17:07 Dose: Not Given Memantine (Namenda) 10 mg PO BID [facility] Last Admin: 02/16/19 17:16 Dose: 10 mg Mesalamine (Rowasa Enema) 4 gm RC HS [facility] Last Admin: 02/16/19 21:28 Dose: Not Given Metoprolol Tartrate (Lopressor) 2.5 mg IVP Q3 [facility] Last Admin: 02/16/19 21:19 Dose: 2.5 mg Sennosides (Senokot Tab) 17.2 mg PO HS [facility] Last Admin: 02/16/19 21:25 Dose: 17.2 mg Sitagliptin Phosphate (Januvia) 25 mg PO DAILY [facility] Last Admin: 02/16/19 08:54 Dose: 25 mg Sucralfate (Carafate Oral Susp) 1 gm PO QID [facility] Last Admin: 02/16/19 21:18 Dose: 1 gm Tamsulosin HCl (Flomax) 0.4 mg PO DAILY [facility] Last Admin: 02/16/19 08:54 Dose: 0.4 mg - Labs Labs: 02/16/19 05:10 02/16/19 05:10 PT 12.8 Seconds (9.8-13.1) 02/14/19 10:00 INR 1.1 02/14/19 10:00 APTT 30.6 Seconds (25.6-37.1) 02/14/19 10:00 - Head Exam Head Exam: ATRAUMATIC - Eye Exam Eye Exam: Normal appearance - ENT Exam ENT Exam: Mucous Membranes Moist - Neck Exam Neck Exam: Full ROM - Respiratory Exam Respiratory Exam: Clear to Ausculation Bilateral - Cardiovascular Exam Cardiovascular Exam: REGULAR RHYTHM - GI/Abdominal Exam GI & Abdominal Exam: Distended, Soft. absent: Tenderness Assessment and Plan (1) GI bleed Assessment & Plan: No bleeding at the moment. Will reduce Medrol to 10 mg BID. Status: Resolved (2) Colonic stricture Assessment & Plan: Tight stricture at rectosigmoid junction with upstream colonic dilatation. For l oop colostomy when medically stable. Status: Acute
[2019-02-17] MEDS: Metoprolol 1 mg/ml Inj IVP SCH ×9 (01:17→22:07)
[2019-02-17 06:59] LABS: HEMOGLOBIN 9.6 g/dL (12.0-18.0); MEAN CELL VOLUME 83.2 fl (80.0-94.0); MEAN CORPUSCULAR HEMOGLOBIN 26.2 pg (27.0-31.0); MEAN CORPUSCULAR HGB CONC 31.5 g/dL (33.0-37.0); RBC 3.66 Mil/uL (4.40-5.90); RED CELL DISTRIBUTION WIDTH 22.6 % (11.5-14.5)
[2019-02-17 07:07] LABS: ALB/GLOB RATIO 0.8 (1.0-2.1); ALBUMIN 2.1 g/dL (3.5-5.0); ALT/SGPT 31 U/L (21-72); AST/SGOT 24 U/L (17-59); BLOOD UREA NITROGEN 13 mg/dl (9-20); CALCIUM 7.1 mg/dL (8.4-10.2); GFR NON-AFRICAN AMERICAN 58
[2019-02-17] MEDS: Insulin Regular 100 units/ml SC SCH ×4 (08:23→22:00)
[2019-02-17] MEDS ORDERED: methylPREDNISolone 10 MG in Sodium Chloride 0.9% 50 ML IV SCH (09:00)
[2019-02-17] MEDS ORDERED: Digoxin 500 mcg/2ml (0.5 mg/2ml) Inj IVP SCH (09:00)
[2019-02-17] MEDS: Sucralfate 1 gm/10 ml Oral Susp UD PO SCH ×4 (10:08→21:28)
[2019-02-17] MEDS: MethylPREDNISolone 40 mg Vial IVP SCH ×2 (10:12→16:58)
--- NOTE | 2019-02-17 10:17 | CP.PCM.PN ---
Objective - Vital Signs/Intake and Output Vital Signs (last 24 hours): Temp Pulse Resp BP Pulse Ox 97.7 F 79 18 110/67 96 02/17/19 07:50 02/17/19 10:11 02/17/19 07:50 02/17/19 10:11 02/17/19 07:50 Intake and Output: 02/17/19 02/17/19 06:59 18:59 Intake Total 900 Output Total 753 Balance 147 - Medications Medications: Current Medications Acetaminophen (Tylenol 325mg Tab) 650 mg PO Q6 PRN PRN Reason: Pain, Mild (1-3) Last Admin: 02/13/19 10:38 Dose: 650 mg Atorvastatin Calcium (Lipitor) 40 mg PO DAILY [facility] Last Admin: 02/17/19 10:10 Dose: 40 mg Benzocaine/Menthol (Cepacol Sore Throat) 1 aylsa PO Q3 PRN PRN Reason: Sore Throat Dextrose (Dextrose 50% Inj) 0 ml IV STAT PRN; Protocol PRN Reason: Hypoglycemia Protocol Last Admin: 02/06/19 05:35 Dose: 25 ml Dextrose (Glutose 15) 0 gm PO ONCE PRN; Protocol PRN Reason: Hypoglycemia Protocol Digoxin (Lanoxin) 0.25 mg IVP DAILY [facility] Dimethicone (Proshield Plus Skin Protectant) 1 applic TOP Q8 PRN PRN Reason: derm Last Admin: 02/14/19 09:50 Dose: 1 applic Ergocalciferol (Drisdol 50,000 Intl Units Cap) 1 cap PO FR [facility] Last Admin: 02/15/19 16:47 Dose: Not Given Fluticasone Propionate (Flonase) 2 spr PRIYA DAILY [facility] Last Admin: 02/17/19 10:09 Dose: 2 spr Glucagon (Glucagen Diagnostic Kit) 0 mg IM STAT PRN; Protocol PRN Reason: Hypoglycemia Protocol Iron Sucrose 100 mg/ Sodium (Chloride) 105 mls @ 105 mls/hr IVPB DAILY [facility] Last Admin: 02/12/19 12:07 Dose: 105 mls/hr Insulin Human Regular (Humulin R) 0 units SC ACHS [facility]; Protocol Last Admin: 02/17/19 08:23 Dose: Not Given Memantine (Namenda) 10 mg PO BID [facility] Last Admin: 02/17/19 10:11 Dose: 10 mg Mesalamine (Rowasa Enema) 4 gm RC HS [facility] Last Admin: 02/16/19 21:28 Dose: Not Given Methylprednisolone (Solu-Medrol) 10 mg IVP BID [facility] Last Admin: 02/17/19 10:12 Dose: 10 mg Metoprolol Tartrate (Lopressor) 2.5 mg IVP Q3 [facility] Last Admin: 02/17/19 10:11 Dose: 2.5 mg Sennosides (Senokot Tab) 17.2 mg PO HS [facility] Last Admin: 02/16/19 21:25 Dose: 17.2 mg Sitagliptin Phosphate (Januvia) 25 mg PO DAILY [facility] Last Admin: 02/17/19 10:10 Dose: 25 mg Sucralfate (Carafate Oral Susp) 1 gm PO QID [facility] Last Admin: 02/17/19 10:08 Dose: 1 gm Tamsulosin HCl (Flomax) 0.4 mg PO DAILY [facility] Last Admin: 02/17/19 10:09 Dose: 0.4 mg - Labs Labs: 02/17/19 05:02 02/17/19 05:02 PT 12.8 Seconds (9.8-13.1) 02/14/19 10:00 INR 1.1 02/14/19 10:00 APTT 30.6 Seconds (25.6-37.1) 02/14/19 10:00
--- NOTE | 2019-02-17 12:02 | CP.PCM.PN ---
Subjective - Date & Time of Evaluation Date of Evaluation: 02/17/19 Time of Evaluation: 12:00 - Subjective Subjective: Patient w/o complaint. No observed bleeding Objective - Vital Signs/Intake and Output Vital Signs (last 24 hours): Temp Pulse Resp BP Pulse Ox 97.5 F L 66 18 110/68 100 02/17/19 11:45 02/17/19 11:45 02/17/19 11:45 02/17/19 11:45 02/17/19 11:45 Intake and Output: 02/17/19 02/17/19 06:59 18:59 Intake Total 900 Output Total 753 Balance 147 - Medications Medications: Current Medications Acetaminophen (Tylenol 325mg Tab) 650 mg PO Q6 PRN PRN Reason: Pain, Mild (1-3) Last Admin: 02/13/19 10:38 Dose: 650 mg Atorvastatin Calcium (Lipitor) 40 mg PO DAILY [facility] Last Admin: 02/17/19 10:10 Dose: 40 mg Benzocaine/Menthol (Cepacol Sore Throat) 1 alysa PO Q3 PRN PRN Reason: Sore Throat Dextrose (Dextrose 50% Inj) 0 ml IV STAT PRN; Protocol PRN Reason: Hypoglycemia Protocol Last Admin: 02/06/19 05:35 Dose: 25 ml Dextrose (Glutose 15) 0 gm PO ONCE PRN; Protocol PRN Reason: Hypoglycemia Protocol Digoxin (Lanoxin) 0.25 mg IVP DAILY [facility] Last Admin: 02/17/19 11:18 Dose: 0.25 mg Dimethicone (Proshield Plus Skin Protectant) 1 applic TOP Q8 PRN PRN Reason: derm Last Admin: 02/14/19 09:50 Dose: 1 applic Ergocalciferol (Drisdol 50,000 Intl Units Cap) 1 cap PO FR [facility] Last Admin: 02/15/19 16:47 Dose: Not Given Fluticasone Propionate (Flonase) 2 spr PRIYA DAILY [facility] Last Admin: 02/17/19 10:09 Dose: 2 spr Glucagon (Glucagen Diagnostic Kit) 0 mg IM STAT PRN; Protocol PRN Reason: Hypoglycemia Protocol Iron Sucrose 100 mg/ Sodium (Chloride) 105 mls @ 105 mls/hr IVPB DAILY [facility] Last Admin: 02/12/19 12:07 Dose: 105 mls/hr Insulin Human Regular (Humulin R) 0 units SC ACHS [facility]; Protocol Last Admin: 02/17/19 11:24 Dose: Not Given Memantine (Namenda) 10 mg PO BID [facility] Last Admin: 02/17/19 10:11 Dose: 10 mg Mesalamine (Rowasa Enema) 4 gm RC HS [facility] Last Admin: 02/16/19 21:28 Dose: Not Given Methylprednisolone (Solu-Medrol) 10 mg IVP BID [facility] Last Admin: 02/17/19 10:12 Dose: 10 mg Metoprolol Tartrate (Lopressor) 2.5 mg IVP Q3 [facility] Last Admin: 02/17/19 10:11 Dose: 2.5 mg Sennosides (Senokot Tab) 17.2 mg PO HS [facility] Last Admin: 02/16/19 21:25 Dose: 17.2 mg Sitagliptin Phosphate (Januvia) 25 mg PO DAILY [facility] Last Admin: 02/17/19 10:10 Dose: 25 mg Sucralfate (Carafate Oral Susp) 1 gm PO QID [facility] Last Admin: 02/17/19 10:08 Dose: 1 gm Tamsulosin HCl (Flomax) 0.4 mg PO DAILY [facility] Last Admin: 02/17/19 10:09 Dose: 0.4 mg - Labs Labs: 02/17/19 05:02 02/17/19 05:02 PT 12.8 Seconds (9.8-13.1) 02/14/19 10:00 INR 1.1 02/14/19 10:00 APTT 30.6 Seconds (25.6-37.1) 02/14/19 10:00 - Head Exam Head Exam: ATRAUMATIC - Eye Exam Eye Exam: Normal appearance Pupil Exam: PERRL - ENT Exam ENT Exam: Normal Exam - Neck Exam Neck Exam: Normal Inspection - Respiratory Exam Respiratory Exam: Clear to Ausculation Bilateral - Cardiovascular Exam Cardiovascular Exam: +S1, +S2 Assessment and Plan (1) GI bleed Assessment & Plan: No current bleeding. Hgb remain stable. Status: Resolved (2) Colonic stricture Assessment & Plan: For surgery when medically stable. Status: Acute
[2019-02-17] MEDS: Sodium Chloride 0.9% 1,000 ML IV SCH (21:38)
[2019-02-18] MEDS: Metoprolol 1 mg/ml Inj IVP SCH ×6 (01:08→21:17)
--- NOTE | 2019-02-18 01:32 | CP.PCM.PN ---
Subjective - Date & Time of Evaluation Date of Evaluation: 02/16/19 Time of Evaluation: 09:45 - Subjective Subjective: NURSE PRACTITIONER COVERING FOR DR. SUE. Pt seen and assessed at bedside. Reports no new complaints other than persistent tachycardia. The pt was for formation of loop colostomy, however A-fib with RVR was noted into the 150 bpm range. Due to this, the procedure was canceled. Cardiology is on board, and the pt is currently receiving Metoprolol. Subjective Review of Systems: Reviewed and no additional remarkable complaints except abdominal discomfort. Objective Vital Signs Stable Appears: Anxious, Non-toxic, No Acute Distress. Head Exam: NORMAL INSPECTION, normocephalic. Eye Exam: Normal eye inspection, EOMI, PERRLA. Respiratory Exam: NORMAL BREATHING PATTERN, breath sounds clear bilaterally. Cardiovascular Exam: +S1, +S2. Tachycardia. GI & Abdominal Exam: Soft, diffuse tenderness, distended. Bowel sounds normoactive. Neurological Exam: Alert, Awake, Oriented x3. Psychiatric exam: Normal mood. Calm and cooperative. Skin Exam: Pallor, warm, dry. Assessment/Impression/Plan: 1.) Anemia/Ulcerative Colitis/New onset A-fib -Formation of loop colostomy was canceled due to taychardia in the 130-150 range , as well as hypotension. -All consults input appreciated. -New onset A-fib likely secondary to ongoing GI bleed. Metoprolol for tachycardia. -IVF hydration. -Correct any electrolye imbalances. -Additional PRBC transfusions may be necessary, monitor CBC. -Continue current tx. Objective - Vital Signs/Intake and Output Vital Signs (last 24 hours): Temp Pulse Resp BP Pulse Ox 97.5 F L 65 20 123/77 95 02/18/19 00:55 02/18/19 01:08 02/18/19 00:55 02/18/19 01:08 02/18/19 00:55 Intake and Output: 02/17/19 02/18/19 18:59 06:59 Intake Total 900 Output Total 753 Balance 147 - Medications Medications: Current Medications Acetaminophen (Tylenol 325mg Tab) 650 mg PO Q6 PRN PRN Reason: Pain, Mild (1-3) Last Admin: 02/13/19 10:38 Dose: 650 mg Atorvastatin Calcium (Lipitor) 40 mg PO DAILY [facility] Last Admin: 02/17/19 10:10 Dose: 40 mg Benzocaine/Menthol (Cepacol Sore Throat) 1 alysa PO Q3 PRN PRN Reason: Sore Throat Dextrose (Dextrose 50% Inj) 0 ml IV STAT PRN; Protocol PRN Reason: Hypoglycemia Protocol Last Admin: 02/06/19 05:35 Dose: 25 ml Dextrose (Glutose 15) 0 gm PO ONCE PRN; Protocol PRN Reason: Hypoglycemia Protocol Digoxin (Lanoxin) 0.125 mg IVP DAILY [facility] Dimethicone (Proshield Plus Skin Protectant) 1 applic TOP Q8 PRN PRN Reason: derm Last Admin: 02/14/19 09:50 Dose: 1 applic Ergocalciferol (Drisdol 50,000 Intl Units Cap) 1 cap PO FR [facility] Last Admin: 02/15/19 16:47 Dose: Not Given Fluticasone Propionate (Flonase) 2 spr PRIYA DAILY [facility] Last Admin: 02/17/19 10:09 Dose: 2 spr Glucagon (Glucagen Diagnostic Kit) 0 mg IM STAT PRN; Protocol PRN Reason: Hypoglycemia Protocol Iron Sucrose 100 mg/ Sodium (Chloride) 105 mls @ 105 mls/hr IVPB DAILY [facility] Last Admin: 02/12/19 12:07 Dose: 105 mls/hr Sodium Chloride (Sodium Chloride 0.9%) 1,000 mls @ 75 mls/hr IV .[id number] [facility] Last Admin: 02/17/19 21:38 Dose: 75 mls/hr Insulin Human Regular (Humulin R) 0 units SC ACHS [facility]; Protocol Last Admin: 02/17/19 16:59 Dose: Not Given Memantine (Namenda) 10 mg PO BID [facility] Last Admin: 02/17/19 16:57 Dose: 10 mg Mesalamine (Rowasa Enema) 4 gm RC HS [facility] Last Admin: 02/17/19 21:36 Dose: Not Given Methylprednisolone (Solu-Medrol) 10 mg IVP BID [facility] Last Admin: 02/17/19 16:58 Dose: 10 mg Metoprolol Tartrate (Lopressor) 2.5 mg IVP Q3 [facility] Last Admin: 02/18/19 01:08 Dose: 2.5 mg Sennosides (Senokot Tab) 17.2 mg PO HS [facility] Last Admin: 02/17/19 21:28 Dose: 17.2 mg Sitagliptin Phosphate (Januvia) 25 mg PO DAILY [facility] Last Admin: 02/17/19 10:10 Dose: 25 mg Sucralfate (Carafate Oral Susp) 1 gm PO QID [facility] Last Admin: 02/17/19 21:28 Dose: 1 gm Tamsulosin HCl (Flomax) 0.4 mg PO DAILY [facility] Last Admin: 02/17/19 10:09 Dose: 0.4 mg - Labs Labs: 02/17/19 05:02 02/17/19 05:02 PT 12.8 Seconds (9.8-13.1) 02/14/19 10:00 INR 1.1 02/14/19 10:00 APTT 30.6 Seconds (25.6-37.1) 02/14/19 10:00 Assessment and Plan (1) Afib Status: Acute (2) Anemia Status: Acute (3) New onset a-fib Status: Acute (4) Ulcerative colitis, chronic Status: Chronic
--- NOTE | 2019-02-18 01:36 | CP.PCM.PN ---
Subjective - Date & Time of Evaluation Date of Evaluation: 02/17/19 Time of Evaluation: 11:00 - Subjective Subjective: NURSE PRACTITIONER COVERING FOR DR. SUE. Pt seen and assessed at bedside. Reports no new complaints, pt states feeling better than the day before. At this time, tachycardia is subsiding. Once more hemodynamically stable, the pt will undergo formation of loop colostomy. Subjective Review of Systems: Reviewed and no additional remarkable complaints except abdominal discomfort. Objective Vital Signs Stable Appears: Anxious, Non-toxic, No Acute Distress. Head Exam: NORMAL INSPECTION, normocephalic. Eye Exam: Normal eye inspection, EOMI, PERRLA. Respiratory Exam: NORMAL BREATHING PATTERN, breath sounds clear bilaterally. Cardiovascular Exam: +S1, +S2. RRR. GI & Abdominal Exam: Soft, diffuse tenderness, distended. Bowel sounds normoac tive. Neurological Exam: Alert, Awake, Oriented x3. Psychiatric exam: Normal mood. Calm and cooperative. Skin Exam: Pallor, warm, dry. Assessment/Impression/Plan: 1.) Anemia/Ulcerative Colitis/New onset A-fib -Heart rate normalizing, BP improved. -Renal function seems to be improving on IVF. -Potassium 3.4 yesterday, pt receiving 2 runs of 20 mEq. Potassium today is 3.6. -Hemoglobin stabilized at this time. -Pending surgery for formation of loop colostomy. -All consults input appreciated. Objective - Vital Signs/Intake and Output Vital Signs (last 24 hours): Temp Pulse Resp BP Pulse Ox 97.5 F L 65 20 123/77 95 02/18/19 00:55 02/18/19 01:08 02/18/19 00:55 02/18/19 01:08 02/18/19 00:55 Intake and Output: 02/17/19 02/18/19 18:59 06:59 Intake Total 900 Output Total 753 Balance 147 - Medications Medications: Current Medications Acetaminophen (Tylenol 325mg Tab) 650 mg PO Q6 PRN PRN Reason: Pain, Mild (1-3) Last Admin: 02/13/19 10:38 Dose: 650 mg Atorvastatin Calcium (Lipitor) 40 mg PO DAILY [facility] Last Admin: 02/17/19 10:10 Dose: 40 mg Benzocaine/Menthol (Cepacol Sore Throat) 1 alysa PO Q3 PRN PRN Reason: Sore Throat Dextrose (Dextrose 50% Inj) 0 ml IV STAT PRN; Protocol PRN Reason: Hypoglycemia Protocol Last Admin: 02/06/19 05:35 Dose: 25 ml Dextrose (Glutose 15) 0 gm PO ONCE PRN; Protocol PRN Reason: Hypoglycemia Protocol Digoxin (Lanoxin) 0.125 mg IVP DAILY [facility] Dimethicone (Proshield Plus Skin Protectant) 1 applic TOP Q8 PRN PRN Reason: derm Last Admin: 02/14/19 09:50 Dose: 1 applic Ergocalciferol (Drisdol 50,000 Intl Units Cap) 1 cap PO FR [facility] Last Admin: 02/15/19 16:47 Dose: Not Given Fluticasone Propionate (Flonase) 2 spr PRIYA DAILY [facility] Last Admin: 02/17/19 10:09 Dose: 2 spr Glucagon (Glucagen Diagnostic Kit) 0 mg IM STAT PRN; Protocol PRN Reason: Hypoglycemia Protocol Iron Sucrose 100 mg/ Sodium (Chloride) 105 mls @ 105 mls/hr IVPB DAILY [facility] Last Admin: 02/12/19 12:07 Dose: 105 mls/hr Sodium Chloride (Sodium Chloride 0.9%) 1,000 mls @ 75 mls/hr IV .[id number] [facility] Last Admin: 02/17/19 21:38 Dose: 75 mls/hr Insulin Human Regular (Humulin R) 0 units SC ACHS [facility]; Protocol Last Admin: 02/17/19 16:59 Dose: Not Given Memantine (Namenda) 10 mg PO BID [facility] Last Admin: 02/17/19 16:57 Dose: 10 mg Mesalamine (Rowasa Enema) 4 gm RC HS [facility] Last Admin: 02/17/19 21:36 Dose: Not Given Methylprednisolone (Solu-Medrol) 10 mg IVP BID [facility] Last Admin: 02/17/19 16:58 Dose: 10 mg Metoprolol Tartrate (Lopressor) 2.5 mg IVP Q3 [facility] Last Admin: 02/18/19 01:08 Dose: 2.5 mg Sennosides (Senokot Tab) 17.2 mg PO HS [facility] Last Admin: 02/17/19 21:28 Dose: 17.2 mg Sitagliptin Phosphate (Januvia) 25 mg PO DAILY [facility] Last Admin: 02/17/19 10:10 Dose: 25 mg Sucralfate (Carafate Oral Susp) 1 gm PO QID [facility] Last Admin: 02/17/19 21:28 Dose: 1 gm Tamsulosin HCl (Flomax) 0.4 mg PO DAILY [facility] Last Admin: 02/17/19 10:09 Dose: 0.4 mg - Labs Labs: 02/17/19 05:02 02/17/19 05:02 PT 12.8 Seconds (9.8-13.1) 02/14/19 10:00 INR 1.1 02/14/19 10:00 APTT 30.6 Seconds (25.6-37.1) 02/14/19 10:00 Assessment and Plan (1) Afib Status: Acute (2) Anemia Status: Acute (3) New onset a-fib Status: Acute (4) Ulcerative colitis, chronic Status: Chronic
[2019-02-18 05:49] LABS: HEMOGLOBIN 9.6 g/dL (12.0-18.0); LYMPH # 1.5 K/uL (1.0-4.3); LYMPH % 26.6 % (20.0-40.0); MEAN CELL VOLUME 82.9 fl (80.0-94.0); MEAN CORPUSCULAR HEMOGLOBIN 26.1 pg (27.0-31.0); MEAN CORPUSCULAR HGB CONC 31.5 g/dL (33.0-37.0); MEAN PLATELET VOLUME 9.5 fl (7.2-11.7); MONO # 0.2 K/uL (0.0-0.8); MONO % 3.3 % (0.0-10.0); NEUT # 3.9 K/uL (1.8-7.0); NEUT % 70.1 % (50.0-75.0); NRBC % 0.8 % (0.0-0.0); RBC 3.69 Mil/uL (4.40-5.90); RED CELL DISTRIBUTION WIDTH 22.2 % (11.5-14.5); WHITE BLOOD COUNT 5.6 K/uL (4.8-10.8)
[2019-02-18 06:04] LABS: ALB/GLOB RATIO 0.8 (1.0-2.1); ALBUMIN 2.1 g/dL (3.5-5.0); ALT/SGPT 32 U/L (21-72); AST/SGOT 22 U/L (17-59); BLOOD UREA NITROGEN 12 mg/dl (9-20); CALCIUM 7.2 mg/dL (8.4-10.2); GFR NON-AFRICAN AMERICAN > 60
--- NOTE | 2019-02-18 08:14 | CP.PCM.PN ---
<[place]andria Green - Last Filed: 02/18/19 11:06> Subjective - Date & Time of Evaluation Date of Evaluation: 02/18/19 Time of Evaluation: 07:10 - Subjective Subjective: General Surgery: Rivera Patient seen and examined this am at bedside. No acute events overnight. Pt passing liquid stool and ambulating. Objective - Vital Signs/Intake and Output Vital Signs (last 24 hours): Temp Pulse Resp BP Pulse Ox 97.6 F 86 18 136/82 98 02/18/19 04:49 02/18/19 06:38 02/18/19 04:49 02/18/19 06:38 02/18/19 04:49 - Medications Medications: Current Medications Acetaminophen (Tylenol 325mg Tab) 650 mg PO Q6 PRN PRN Reason: Pain, Mild (1-3) Last Admin: 02/13/19 10:38 Dose: 650 mg Atorvastatin Calcium (Lipitor) 40 mg PO DAILY [facility] Last Admin: 02/17/19 10:10 Dose: 40 mg Benzocaine/Menthol (Cepacol Sore Throat) 1 alysa PO Q3 PRN PRN Reason: Sore Throat Dextrose (Dextrose 50% Inj) 0 ml IV STAT PRN; Protocol PRN Reason: Hypoglycemia Protocol Last Admin: 02/06/19 05:35 Dose: 25 ml Dextrose (Glutose 15) 0 gm PO ONCE PRN; Protocol PRN Reason: Hypoglycemia Protocol Digoxin (Lanoxin) 0.125 mg IVP DAILY [facility] Dimethicone (Proshield Plus Skin Protectant) 1 applic TOP Q8 PRN PRN Reason: derm Last Admin: 02/14/19 09:50 Dose: 1 applic Ergocalciferol (Drisdol 50,000 Intl Units Cap) 1 cap PO FR [facility] Last Admin: 02/15/19 16:47 Dose: Not Given Fluticasone Propionate (Flonase) 2 spr PRIYA DAILY [facility] Last Admin: 02/17/19 10:09 Dose: 2 spr Glucagon (Glucagen Diagnostic Kit) 0 mg IM STAT PRN; Protocol PRN Reason: Hypoglycemia Protocol Iron Sucrose 100 mg/ Sodium (Chloride) 105 mls @ 105 mls/hr IVPB DAILY [facility] Last Admin: 02/12/19 12:07 Dose: 105 mls/hr Sodium Chloride (Sodium Chloride 0.9%) 1,000 mls @ 75 mls/hr IV .[id number] [facility] Last Admin: 02/17/19 21:38 Dose: 75 mls/hr Potassium Chloride (Potassium Chloride 20 Meq/100 Ml) 100 mls @ 50 mls/hr IVPB Q2 [facility] Stop: 02/18/19 13:59 Insulin Human Regular (Humulin R) 0 units SC ACHS [facility]; Protocol Last Admin: 02/17/19 22:00 Dose: Not Given Memantine (Namenda) 10 mg PO BID [facility] Last Admin: 02/17/19 16:57 Dose: 10 mg Mesalamine (Rowasa Enema) 4 gm RC HS [facility] Last Admin: 02/17/19 21:36 Dose: Not Given Methylprednisolone (Solu-Medrol) 10 mg IVP BID [facility] Last Admin: 02/17/19 16:58 Dose: 10 mg Metoprolol Tartrate (Lopressor) 2.5 mg IVP Q3 [facility] Last Admin: 02/18/19 06:38 Dose: 2.5 mg Sennosides (Senokot Tab) 17.2 mg PO HS [facility] Last Admin: 02/17/19 21:28 Dose: 17.2 mg Sitagliptin Phosphate (Januvia) 25 mg PO DAILY [facility] Last Admin: 02/17/19 10:10 Dose: 25 mg Sucralfate (Carafate Oral Susp) 1 gm PO QID [facility] Last Admin: 02/17/19 21:28 Dose: 1 gm Tamsulosin HCl (Flomax) 0.4 mg PO DAILY [facility] Last Admin: 02/17/19 10:09 Dose: 0.4 mg - Labs Labs: 02/18/19 04:45 02/18/19 04:45 PT 12.8 Seconds (9.8-13.1) 02/14/19 10:00 INR 1.1 02/14/19 10:00 APTT 30.6 Seconds (25.6-37.1) 02/14/19 10:00 - Constitutional Appears: Well, Non-toxic, No Acute Distress - Head Exam Head Exam: ATRAUMATIC, NORMOCEPHALIC - Eye Exam Eye Exam: EOMI - ENT Exam ENT Exam: Mucous Membranes Moist - Respiratory Exam Respiratory Exam: NORMAL BREATHING PATTERN - Cardiovascular Exam Cardiovascular Exam: REGULAR RHYTHM - GI/Abdominal Exam GI & Abdominal Exam: Soft. absent: Guarding, Tenderness, Rebound - Neurological Exam Neurological Exam: Alert, Awake, Oriented x3 - Psychiatric Exam Psychiatric exam: Normal Affect, Normal Mood - Skin Skin Exam: Dry, Intact, Normal Color, Warm Assessment and Plan - Assessment and Plan (Free Text) Assessment: 78 M with rectal stricture Plan: - NPO - plan for OR today for Loop colostomy - discussed with Dr. Markham, PGY 1 <Jp Del Cid - Last Filed: 02/21/19 08:23> Objective - Vital Signs/Intake and Output Vital Signs (last 24 hours): Temp Pulse Resp BP Pulse Ox 97.6 F 93 H 18 105/67 94 L 02/21/19 07:50 02/21/19 07:50 02/21/19 07:50 02/21/19 07:50 02/21/19 07:50 - Medications Medications: Current Medications Acetaminophen (Tylenol 325mg Tab) 650 mg PO Q6 [facility] Last Admin: 02/21/19 05:36 Dose: 650 mg Atorvastatin Calcium (Lipitor) 40 mg PO DAILY [facility] Last Admin: 02/20/19 09:18 Dose: 40 mg Benzocaine/Menthol (Cepacol Sore Throat) 1 alysa PO Q3 PRN PRN Reason: Sore Throat Cyclobenzaprine HCl (Flexeril) 5 mg PO Q8 [facility] Last Admin: 02/21/19 00:52 Dose: Not Given Dextrose (Dextrose 50% Inj) 0 ml IV STAT PRN; Protocol PRN Reason: Hypoglycemia Protocol Last Admin: 02/06/19 05:35 Dose: 25 ml Dextrose (Glutose 15) 0 gm PO ONCE PRN; Protocol PRN Reason: Hypoglycemia Protocol Digoxin (Lanoxin) 0.125 mg IVP DAILY [facility] Last Admin: 02/20/19 09:25 Dose: 0.125 mg Dimethicone (Proshield Plus Skin Protectant) 1 applic TOP Q8 PRN PRN Reason: derm Last Admin: 02/14/19 09:50 Dose: 1 applic Ergocalciferol (Drisdol 50,000 Intl Units Cap) 1 cap PO FR [facility] Last Admin: 02/15/19 16:47 Dose: Not Given Fluticasone Propionate (Flonase) 2 spr PRIYA DAILY [facility] Last Admin: 02/20/19 09:17 Dose: 2 spr Glucagon (Glucagen Diagnostic Kit) 0 mg IM STAT PRN; Protocol PRN Reason: Hypoglycemia Protocol Hydromorphone HCl (Dilaudid) 1 mg IVP Q4 PRN PRN Reason: Pain, severe (8-10) Iron Sucrose 100 mg/ Sodium (Chloride) 105 mls @ 105 mls/hr IVPB DAILY [facility] Last Admin: 02/12/19 12:07 Dose: 105 mls/hr Insulin Human Regular (Humulin R) 0 units SC ACHS [facility]; Protocol Last Admin: 02/20/19 21:50 Dose: Not Given Lidocaine (Lidoderm) 1 ea TD DAILY [facility] Last Admin: 02/20/19 09:14 Dose: 1 ea Memantine (Namenda) 10 mg PO BID [facility] Last Admin: 02/20/19 17:05 Dose: 10 mg Mesalamine (Rowasa Enema) 4 gm RC HS [facility] Last Admin: 02/20/19 21:51 Dose: Not Given Methylprednisolone (Solu-Medrol) 10 mg IVP BID [facility] Last Admin: 02/20/19 17:06 Dose: 10 mg Metoprolol Tartrate (Lopressor) 2.5 mg IVP Q3 [facility] Last Admin: 02/21/19 05:00 Dose: 2.5 mg Oxycodone HCl (Oxycodone Immediate Release Tab) 5 mg PO Q6 PRN PRN Reason: Pain, moderate (4-7) Sennosides (Senokot Tab) 17.2 mg PO HS [facility] Last Admin: 02/20/19 21:51 Dose: Not Given Sitagliptin Phosphate (Januvia) 25 mg PO DAILY [facility] Last Admin: 02/20/19 09:18 Dose: 25 mg Sucralfate (Carafate Oral Susp) 1 gm PO QID [facility] Last Admin: 02/20/19 21:50 Dose: 1 gm Tamsulosin HCl (Flomax) 0.4 mg PO DAILY [facility] Last Admin: 02/20/19 09:16 Dose: 0.4 mg - Labs Labs: 02/21/19 06:16 02/21/19 06:16 PT 12.8 Seconds (9.8-13.1) 02/14/19 10:00 INR 1.1 02/14/19 10:00 APTT 30.6 Seconds (25.6-37.1) 02/14/19 10:00 Assessment and Plan - Assessment and Plan (Free Text) Plan: All medical record entries made by the resident were at my direction. I have reviewed the chart and agree that the record accurately reflects my personal performance of the history, physical exam, and medical decision making.
--- NOTE | 2019-02-18 08:27 | CON ---
DATE: 02/16/2019 ELECTROPHYSIOLOGY CONSULTATION REASON FOR EVALUATION: 1. Tachycardia. 2. New onset atrial fibrillation. 3. History of stroke. 4. Dementia. 5. Colitis, possible colectomy. Thank you very much for this consult. HISTORY OF PRESENT ILLNESS: Mr. Rodri Loya is a 69-year-old male with past medical history significant for ulcerative colitis, hypertension, bladder CA, dementia, prediabetes, CVA in 2007, admitted to [facility] on the day of admission, 02/05/2019, with bloody diarrhea, right-sided abdominal pain with CT evidence of left-sided colitis. The patient was put on antibiotics, admitted to the floor, was also found to have acute kidney injury with hypernatremia. The patient was seen in consultation for preoperative evaluation by Dr. Noelle Potts. At that time, he was documented not to have any active coronary symptoms. Echocardiogram previously had been normal. The patient, at that point, had been felt to be intermediate risk for colonoscopy. The patient then went into new onset atrial fibrillation with followup by Dr. Potts, 02/10/2019, for new onset atrial fibrillation, did receive amiodarone initially, which did not convert him to normal sinus rhythm. The patient subsequently did have an episode of confusion and subsequently post anesthesia did have an episode of falling and hitting his head without suffering significant trauma. The patient did require three units of packed red blood cells. Colonoscopy did find rectal stricture. I have been asked to see him in regards to periods of atrial fibrillation with rapid ventricular response. I had a long discussion with Dr. Potts in regards to management. The patient did previously undergo echocardiogram which showed normal LV function. The patient is receiving IV fluids and the patient may be at this time considered for possible IV Cardizem drip. PAST MEDICAL HISTORY: As mentioned in the history of present illness including ulcerative colitis, bladder cancer, dementia, prediabetes, CVA in 2007, and chronic kidney disease. PAST SURGICAL HISTORY: Significant for left nephrectomy. ALLERGIES: TO PENICILLIN. SOCIAL HISTORY: Negative for tobacco, EtOH, or drug abuse. REVIEW OF SYSTEMS: The patient has dementia, does complain of lower abdominal pain. Denies chest pain, palpitations, is lying flat. No shortness of breath. No dizziness, lightheadedness, difficulty with urination. No recent bleeding or bruising history. No musculoskeletal complaints. No GI complaints. No psychosocial stressors other than baseline dementia. PHYSICAL EXAMINATION: VITAL SIGNS: Temperature is 98.3, pulse of 84, blood pressure is 165/88. GENERAL: He is a well-developed, well-nourished, pleasantly demented male in no acute distress. Able to speak in complete sentences. HEENT: Examination of his head is normocephalic and atraumatic. There is no reba facial asymmetry. NECK: Supple. CHEST: Clear to auscultation bilaterally. Decreased breath sounds. CARDIOVASCULAR EXAM: Irregularly irregular rhythm. ABDOMEN: Soft, obese. Mildly distended. EXTREMITIES: No cyanosis, clubbing, or edema. Peripheral pulses are intact, symmetric and regular in bilateral upper and lower extremities. MEDICATIONS: On review of current medications include acetaminophen 650 mg every 6 hours p.r.n., atorvastatin 40 mg p.o. daily, benzocaine or Cepacol throat lozenge, dextrose, digoxin 0.25 mg p.o. every 8 hours, digoxin, ergocalciferol, Drisdol 50,000 every week p.o., fluticasone propionate nasal spray, insulin sliding scale, Namenda 10 mg p.o. b.i.d., mesalamine 4 g at bedtime, Solu-Medrol 10 mg IV t.i.d., metoprolol 2.5 mg IV every 3 hours, sucralfate 1 g p.o. four times a day, Januvia 25 mg p.o. daily, Cardizem IV push x1 in the past. LABORATORY DATA: On review of telemetry, the patient does have episodes of atrial fibrillation with rapid ventricular response sometimes up into the 150s, currently it is in the 80s to 90s. Upon review of EKG from 02/08/2019, shows atrial fibrillation with borderline rapid ventricular response with a heart rate of 99. There is normal axis across the precordium. There is borderline R-wave progression across the precordium, nonspecific ST-T-wave changes are noted. PVCs are noted which appear to be of RVOT origin. ASSESSMENT: 1. Tachycardia secondary to atrial fibrillation with rapid ventricular response currently. The patient's blood pressure is elevated following volume challenge. At this point, would recommend intravenous Cardizem for rate control. If we are not able to control with intravenous Cardizem, we may consider esmolol drip, it is unclear whether esmolol can be titrated on telemetry, may need to go to the ICU. I do believe the Cardizem should be able to rate control this gentleman at this point, certainly normal sinus rhythm would be preferable. I do agree with digoxin loading and we will continue digoxin. Digoxin does have vagomimetic effects which would help in baseline control of atrial fibrillation in terms of rate at rest, not so helpful in stress-type situations, i.e., OR. 2. Atrial fibrillation which at this point appears to be new onset. The patient is critically ill, anemic, currently bleeding and would likely ultimately require a colectomy. Long-term anticoagulation is complicated by gastrointestinal bleed issue, history of dementia, and increased fall risk. If we are unable to control his rates with intravenous Cardizem or intravenous esmolol, we may consider intravenous amiodarone for rate control, the likelihood of chemical cardioversion in this gentleman is unlikely. The patient is obviously at risk for recurrent stroke. 3. 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 Long-term anticoagulation at this point is not advisable due to other issues. 4. Dementia, which makes medical decision making in this critical juncture difficult. 5. Colitis. Managed as per the surgical and medical services. 6. Premature ventricular contractions of right ventricular outflow tract origin at this point does not appear to have episodes of an nonsustained ventricular tachycardia, would continue either calcium channel or beta-bushra therapy. Thank you for allowing me to participate in the care of your patient. Please do not hesitate to call if you have any questions in regards to his care. Yours sincerely, Marcos Rodriguez MD cc: MD Noelle Washington DO
[2019-02-18] MEDS: Sucralfate 1 gm/10 ml Oral Susp UD PO SCH ×4 (09:34→21:17)
[2019-02-18] MEDS: Insulin Regular 100 units/ml SC SCH ×3 (09:37→23:51)
[2019-02-18] MEDS: MethylPREDNISolone 40 mg Vial IVP SCH (09:40)
[2019-02-18] MEDS: Digoxin 500 mcg/2ml (0.5 mg/2ml) Inj IVP SCH (09:44)
[2019-02-18] MEDS: Potassium Chloride 20 mEq 100 ML IVPB SCH ×2 (09:50→11:55)
--- NOTE | 2019-02-18 10:35 | PN ---
DATE: 02/18/2019 SUBJECTIVE: The patient is seen and examined. Interim events noted. Consults noted and appreciated. The patient remains in progressive care unit with telemetry monitoring. Awake, responsive, and feels okay. Denies any chest pain. No shortness of breath. PHYSICAL EXAMINATION: GENERAL: The patient is in no acute distress. VITAL SIGNS: Stable. HEART: S1 and S2 normal and regular. LUNGS: Good bilateral air exchange. ABDOMEN: Soft and nontender. No sign of acute abdomen. No guarding. No rigidity. No rebound. Bowel sounds are present and normal. EXTREMITIES: No edema. No calf swelling. No tenderness. No acute ischemia. CENTRAL NERVOUS SYSTEM: Essentially unchanged. DIAGNOSTIC DATA: Available diagnostic data reviewed. Telemetry monitoring does not show significant arrhythmia. ASSESSMENT AND PLAN: The patient is tentatively scheduled for surgery today. The patient is medically stable. Plan as ordered. Case and plan discussed with the patient. Gatito Mathew MD
[2019-02-18] MEDS ORDERED: Rocuronium 10 mg/ml (5 ml) ONE ×2 (12:27→15:33)
[2019-02-18] MEDS ORDERED: Etomidate 20 mg/10ml Inj IV ONE (12:27)
[2019-02-18] MEDS ORDERED: Propofol 10 mg/ml Inj (20 ML) ONE (12:27)
[2019-02-18] MEDS ORDERED: Succinylcholine Chloride 20 mg/ml Syr (5 ml) IV ONE (12:27)
[2019-02-18] MEDS ORDERED: Sodium Chloride 0.9% 1,000 ML IV ONE ×3 (13:32→17:00)
[2019-02-18] MEDS ORDERED: Lactated Ringer's 1,000 ML IV ONE ×5 (13:55→19:00)
--- NOTE | 2019-02-18 14:06 | CP.PCM.PN ---
Subjective - Date & Time of Evaluation Date of Evaluation: 02/18/19 Time of Evaluation: 09:00 - Subjective Subjective: Feeling well. Regular BMs. No bleeding. Objective - Vital Signs/Intake and Output Vital Signs (last 24 hours): Temp Pulse Resp BP Pulse Ox 97.5 F L 100 H 20 128/74 98 02/18/19 08:46 02/18/19 12:48 02/18/19 08:46 02/18/19 12:48 02/18/19 11:02 - Medications Medications: Current Medications Acetaminophen (Tylenol 325mg Tab) 650 mg PO Q6 PRN PRN Reason: Pain, Mild (1-3) Last Admin: 02/13/19 10:38 Dose: 650 mg Atorvastatin Calcium (Lipitor) 40 mg PO DAILY [facility] Last Admin: 02/18/19 09:39 Dose: Not Given Benzocaine/Menthol (Cepacol Sore Throat) 1 alysa PO Q3 PRN PRN Reason: Sore Throat Dextrose (Dextrose 50% Inj) 0 ml IV STAT PRN; Protocol PRN Reason: Hypoglycemia Protocol Last Admin: 02/06/19 05:35 Dose: 25 ml Dextrose (Glutose 15) 0 gm PO ONCE PRN; Protocol PRN Reason: Hypoglycemia Protocol Digoxin (Lanoxin) 0.125 mg IVP DAILY [facility] Last Admin: 02/18/19 09:44 Dose: 0.125 mg Dimethicone (Proshield Plus Skin Protectant) 1 applic TOP Q8 PRN PRN Reason: derm Last Admin: 02/14/19 09:50 Dose: 1 applic Ergocalciferol (Drisdol 50,000 Intl Units Cap) 1 cap PO FR [facility] Last Admin: 02/15/19 16:47 Dose: Not Given Fluticasone Propionate (Flonase) 2 spr PRIYA DAILY [facility] Last Admin: 02/18/19 09:36 Dose: 2 spr Glucagon (Glucagen Diagnostic Kit) 0 mg IM STAT PRN; Protocol PRN Reason: Hypoglycemia Protocol Iron Sucrose 100 mg/ Sodium (Chloride) 105 mls @ 105 mls/hr IVPB DAILY [facility] Last Admin: 02/12/19 12:07 Dose: 105 mls/hr Sodium Chloride (Sodium Chloride 0.9%) 1,000 mls @ 75 mls/hr IV .[id number] [facility] Last Admin: 02/17/19 21:38 Dose: 75 mls/hr Insulin Human Regular (Humulin R) 0 units SC ACHS [facility]; Protocol Last Admin: 02/18/19 11:54 Dose: Not Given Memantine (Namenda) 10 mg PO BID [facility] Last Admin: 02/18/19 09:40 Dose: Not Given Mesalamine (Rowasa Enema) 4 gm RC HS [facility] Last Admin: 02/17/19 21:36 Dose: Not Given Methylprednisolone (Solu-Medrol) 10 mg IVP BID [facility] Last Admin: 02/18/19 09:40 Dose: 10 mg Metoprolol Tartrate (Lopressor) 2.5 mg IVP Q3 [facility] Last Admin: 02/18/19 12:48 Dose: 2.5 mg Sennosides (Senokot Tab) 17.2 mg PO HS [facility] Last Admin: 02/17/19 21:28 Dose: 17.2 mg Sitagliptin Phosphate (Januvia) 25 mg PO DAILY [facility] Last Admin: 02/18/19 09:39 Dose: Not Given Sucralfate (Carafate Oral Susp) 1 gm PO QID [facility] Last Admin: 02/18/19 13:18 Dose: 1 gm Tamsulosin HCl (Flomax) 0.4 mg PO DAILY [facility] Last Admin: 02/18/19 09:34 Dose: Not Given - Labs Labs: 02/18/19 04:45 02/18/19 04:45 PT 12.8 Seconds (9.8-13.1) 02/14/19 10:00 INR 1.1 02/14/19 10:00 APTT 30.6 Seconds (25.6-37.1) 02/14/19 10:00 - Head Exam Head Exam: ATRAUMATIC - Eye Exam Eye Exam: Normal appearance - ENT Exam ENT Exam: Mucous Membranes Moist - Neck Exam Neck Exam: Full ROM - Respiratory Exam Respiratory Exam: Clear to Ausculation Bilateral - Cardiovascular Exam Cardiovascular Exam: REGULAR RHYTHM, +S1, +S2 - GI/Abdominal Exam GI & Abdominal Exam: Distended, Normal Bowel Sounds Assessment and Plan (1) GI bleed Status: Resolved (2) Colonic stricture Assessment & Plan: For loop colostomy today for colon stricture. Once colostomy has matured will schedule for colonoscopy. Status: Acute
[2019-02-18] MEDS ORDERED: Calcium Chloride 1000 mg/10 ml Syringe ONE (14:23)
[2019-02-18] MEDS ORDERED: Sodium Chloride 0.9% 500 ML IV ONE (15:33)
[2019-02-18] MEDS ORDERED: Neostigmine 1:1000 (1 mg/ml) Inj ONE (16:59)
[2019-02-18] MEDS: HYDROmorphone 0.5 mg/0.5 ml ISec IVP PRN ×2 (17:40→18:40)
--- NOTE | 2019-02-18 17:43 | PCM.SURG1 ---
Surgeon's Initial Post Op Note - Surgeon's Notes Surgeon: Dr. Rivera Supervisor Pile Driving: Nicole PGY2 Type of Anesthesia: General Endo Anesthesia Administered By: Dr. Valenzuela Pre-Operative Diagnosis: Rectal stricture Operative Findings: extensive adhesions Post-Operative Diagnosis: Rectal stricture Operation Performed: Laparoscopic hand assist diverting transverse colostomy Specimen/Specimens Removed: N/A Estimated Blood Loss: EBL {In ML}: 200 Blood Products Given: PRBC (1 unit ) Drains Used: No Drains Post-Op Condition: Good Date of Surgery/Procedure: 02/18/19 Time of Surgery/Procedure: 17:43
--- NOTE | 2019-02-18 17:44 | PCM.OP ---
Operative Report - Operative Report Date of Surgery/Procedure: 02/19/19 Time of Surgery/Procedure: 17:43 Surgeon: Dr. Rivera Audit Consultant: Nicole BRONSONY2 Anesthesia/Sedation: General Endo Dr. Valenzuela Pre-Operative Diagnosis: Rectal stricture Post-Operative Diagnosis: Rectal stricture Indication for Surgery: Rectal stricture Operative Findings: Extensive adhesions, loss of haustra in colon Procedure/Operation Description: Procedure: Laparoscopic Hand assist diverting transverse colostomy 78 M with PMH of UC presents with rectal stricture. Colonoscopy was attempted by GI but unable to pass area of stenosis. Patient was only having liquid BMs with abd distention. Consent was obtained from the patient and family prior to the procedure. Risks/benefits were discussed at length. They verbalized understanding and agreement. Patient was taken to the operating room and placed in the supine position. SCDs were placed on bilateral lower extremities. General endotracheal anesthesia was administered for the procedure. Patient's abdomen was prepped and draped in the usual sterile fashion. Time out was performed. #15 blade was used to make a horizontal incision left of midline in LUQ. Subcutaneous tissues were dissected with electrocautery until the layer of fascia. The fascia was incised with metzenbaum scissors. Upon entering abdominal cavity, adhesions were noted. Extensive adhesions were present from previous surgeries and history of ulcerative colitis. The transverse colon was identified and attempted to be pulled up but was not mobile enough. Decision was made to lyse adhesions laparoscopically and use incision as hand port. Veress needle was used to insuflate the abdomen after towel clips were placed on the original incision. Optimal insuflation was acheived with pressure of 15 noted. #11 blade was used to make three incisions at the umbilicus and LLQ. 5 mm ports were inserted under direct visualization. The extensive adhesions in the upper abdomen were carefully dissected bluntly and with electrocautery with assistance of the hand port. Once the transvere colon was mobilized enough to reach the skin, a blowhole colostomy was created by using interupted 3-0 vircyl. Four circumferential interupted sutures were placed from colon to fascia to prevent retraction of colostomy. The opening in the transverse colon was then sutured to the skin. The three port sites were closed with 4-0 monocryl. Colostomy appliance was applied to the site. All nursing counts were correct and confirmed. EBL was 200cc. Patient tolerated the procedure well with no apparent complications. Patient transferred to PACU for recovery. He returned to telemetry afterwards. Estimated Blood Loss: 200cc Blood Replaced: 1u PRBC Complications: None Discharge & Condition: Good, patient to be transferred back to telemetry after PACU
[2019-02-18] MEDS ORDERED: Dextrose 5%/0.2% NS 500 ML IV ONE (18:00)
[2019-02-18 18:44] LABS: BASO % 0.1 % (0.0-2.0); EOS % 0.1 % (0.0-4.0); HEMOGLOBIN 11.2 g/dL (12.0-18.0); LYMPH # 1.3 K/uL (1.0-4.3); LYMPH % 20.8 % (20.0-40.0); MEAN CELL VOLUME 84.4 fl (80.0-94.0); MEAN CORPUSCULAR HEMOGLOBIN 27.2 pg (27.0-31.0); MEAN CORPUSCULAR HGB CONC 32.2 g/dL (33.0-37.0); MEAN PLATELET VOLUME 9.5 fl (7.2-11.7); MONO # 0.1 K/uL (0.0-0.8); MONO % 1.3 % (0.0-10.0); NEUT % 77.7 % (50.0-75.0); NRBC % 0.4 % (0.0-0.0); RBC 4.13 Mil/uL (4.40-5.90); RED CELL DISTRIBUTION WIDTH 21.8 % (11.5-14.5); WHITE BLOOD COUNT 6.4 K/uL (4.8-10.8)
[2019-02-18] MEDS ORDERED: Metoprolol 1 mg/ml Inj IVP STA (18:51)
[2019-02-18 18:54] LABS: ABG ALLEN TEST YES; ARTERIAL BLOOD GAS O2 SAT 96.5 % (95-98); ARTERIAL BLOOD GAS PCO2 33 mm/Hg (35-45); ARTERIAL BLOOD GAS PH 7.35 (7.35-7.45); ARTERIAL BLOOD GAS PO2 140 mm/Hg (80-100); ARTERIAL BLOOD GAS TCO2 19.2 mmol/L (22-28)
[2019-02-18] MEDS ORDERED: Lactated Ringer's 1,000 ML IV SCH (19:00)
[2019-02-18 19:18] LABS: ALB/GLOB RATIO 0.8 (1.0-2.1); ALBUMIN 1.9 g/dL (3.5-5.0); ALT/SGPT 29 U/L (21-72); AST/SGOT 39 U/L (17-59); BLOOD UREA NITROGEN 11 mg/dl (9-20); CALCIUM 6.9 mg/dL (8.4-10.2); GFR NON-AFRICAN AMERICAN > 60
[2019-02-19] MEDS: Metoprolol 1 mg/ml Inj IVP SCH ×8 (00:21→21:21)
[2019-02-19] MEDS: Sodium Chloride 0.9% 1,000 ML IV SCH ×2 (04:28→04:29)
[2019-02-19 05:46] LABS: ALB/GLOB RATIO 0.8 (1.0-2.1); CALCIUM 7.3 mg/dL (8.4-10.2)
[2019-02-19 05:53] LABS: BASO % 0.1 % (0.0-2.0); HEMOGLOBIN 11.4 g/dL (12.0-18.0); LYMPH # 1.4 K/uL (1.0-4.3); MEAN CELL VOLUME 84.6 fl (80.0-94.0); MEAN CORPUSCULAR HEMOGLOBIN 27.1 pg (27.0-31.0); MEAN PLATELET VOLUME 9.7 fl (7.2-11.7); MONO # 0.2 K/uL (0.0-0.8); MONO % 1.7 % (0.0-10.0); NEUT # 12.4 K/uL (1.8-7.0); NEUT % 88.2 % (50.0-75.0); NRBC % 0.1 % (0.0-0.0); RBC 4.2 Mil/uL (4.40-5.90); RED CELL DISTRIBUTION WIDTH 21.4 % (11.5-14.5)
--- NOTE | 2019-02-19 08:01 | CP.PCM.PN ---
<Jewel Rivera - Last Filed: 02/19/19 07:59> Subjective - Date & Time of Evaluation Date of Evaluation: 02/19/19 Time of Evaluation: 07:00 - Subjective Subjective: General Surgery Note for Dr. Rivera Patient seen and examined at bedside. No acute event overnight. Patient is s/p lap hand assist transverse colostomy POD#1. Patient states pain is control. He admits to anorexia. Denies fever/chills or nausea/vomiting. Colostomy with bowel sweat. Denies flatus or BM. Jony with 155 cc/24hrs. UOP was 1005 cc/24hrs. Objective - Vital Signs/Intake and Output Vital Signs (last 24 hours): Temp Pulse Resp BP Pulse Ox 97.9 F 68 18 104/67 98 02/19/19 07:56 02/19/19 07:56 02/19/19 07:56 02/19/19 07:56 02/19/19 07:56 Intake and Output: 02/19/19 02/19/19 06:59 18:59 Intake Total 750 Output Total 410 Balance 340 - Medications Medications: Current Medications Acetaminophen (Tylenol 325mg Tab) 650 mg PO Q6 PRN PRN Reason: Pain, Mild (1-3) Last Admin: 02/13/19 10:38 Dose: 650 mg Atorvastatin Calcium (Lipitor) 40 mg PO DAILY [facility] Last Admin: 02/18/19 09:39 Dose: Not Given Benzocaine/Menthol (Cepacol Sore Throat) 1 alysa PO Q3 PRN PRN Reason: Sore Throat Dextrose (Dextrose 50% Inj) 0 ml IV STAT PRN; Protocol PRN Reason: Hypoglycemia Protocol Last Admin: 02/06/19 05:35 Dose: 25 ml Dextrose (Glutose 15) 0 gm PO ONCE PRN; Protocol PRN Reason: Hypoglycemia Protocol Digoxin (Lanoxin) 0.125 mg IVP DAILY [facility] Last Admin: 02/18/19 09:44 Dose: 0.125 mg Dimethicone (Proshield Plus Skin Protectant) 1 applic TOP Q8 PRN PRN Reason: derm Last Admin: 02/14/19 09:50 Dose: 1 applic Ergocalciferol (Drisdol 50,000 Intl Units Cap) 1 cap PO FR [facility] Last Admin: 02/15/19 16:47 Dose: Not Given Fluticasone Propionate (Flonase) 2 spr PRIYA DAILY [facility] Last Admin: 02/18/19 09:36 Dose: 2 spr Glucagon (Glucagen Diagnostic Kit) 0 mg IM STAT PRN; Protocol PRN Reason: Hypoglycemia Protocol Iron Sucrose 100 mg/ Sodium (Chloride) 105 mls @ 105 mls/hr IVPB DAILY [facility] Last Admin: 02/12/19 12:07 Dose: 105 mls/hr Sodium Chloride (Sodium Chloride 0.9%) 1,000 mls @ 75 mls/hr IV .[id number] [facility] Last Admin: 02/19/19 04:29 Dose: Not Given Lactated Ringer's (Lactated Ringer's) 1,000 mls @ 100 mls/hr IV .Q10H JOVANNY Insulin Human Regular (Humulin R) 0 units SC ACHS [facility]; Protocol Last Admin: 02/18/19 23:51 Dose: Not Given Memantine (Namenda) 10 mg PO BID [facility] Last Admin: 02/18/19 09:40 Dose: Not Given Mesalamine (Rowasa Enema) 4 gm RC HS [facility] Last Admin: 02/19/19 04:40 Dose: Not Given Methylprednisolone (Solu-Medrol) 10 mg IVP BID [facility] Last Admin: 02/18/19 09:40 Dose: 10 mg Metoprolol Tartrate (Lopressor) 2.5 mg IVP Q3 [facility] Last Admin: 02/19/19 04:28 Dose: 2.5 mg Sennosides (Senokot Tab) 17.2 mg PO HS [facility] Last Admin: 02/19/19 04:41 Dose: Not Given Sitagliptin Phosphate (Januvia) 25 mg PO DAILY [facility] Last Admin: 02/18/19 09:39 Dose: Not Given Sucralfate (Carafate Oral Susp) 1 gm PO QID [facility] Last Admin: 02/18/19 21:17 Dose: 1 gm Tamsulosin HCl (Flomax) 0.4 mg PO DAILY [facility] Last Admin: 02/18/19 09:34 Dose: Not Given - Labs Labs: 02/19/19 05:05 02/19/19 05:05 PT 12.8 Seconds (9.8-13.1) 02/14/19 10:00 INR 1.1 02/14/19 10:00 APTT 30.6 Seconds (25.6-37.1) 02/14/19 10:00 - Constitutional Appears: No Acute Distress - Head Exam Head Exam: ATRAUMATIC, NORMOCEPHALIC - Eye Exam Eye Exam: EOMI, Normal appearance Pupil Exam: PERRL - ENT Exam ENT Exam: Mucous Membranes Moist - Respiratory Exam Respiratory Exam: NORMAL BREATHING PATTERN - Cardiovascular Exam Cardiovascular Exam: Irregular Rhythm (afib rate controlled) - GI/Abdominal Exam GI & Abdominal Exam: Soft, Normal Bowel Sounds. absent: Distended, Firm, Guarding, Rigid, Tenderness, Rebound Additional comments: transverse colostomy pink and patent - Extremities Exam Extremities Exam: Normal Capillary Refill - Back Exam Back Exam: absent: CVA tenderness (L), CVA tenderness (R) - Neurological Exam Neurological Exam: Alert, Awake - Psychiatric Exam Psychiatric exam: Normal Affect, Normal Mood - Skin Skin Exam: Dry, Intact, Warm Assessment and Plan - Assessment and Plan (Free Text) Assessment: 78 M who presents with rectal stricture is now s/p lap hand assist transverse colostomy POD#1 Plan: -CLD,ADAT -Pain control -Monitor colostomy output -Monitor jony output -discontinue kilgore -Further recommendations as per Dr. Nguyen PGY2 <Jp Del Cid - Last Filed: 02/21/19 08:23> Objective - Vital Signs/Intake and Output Vital Signs (last 24 hours): Temp Pulse Resp BP Pulse Ox 97.6 F 93 H 18 105/67 94 L 02/21/19 07:50 02/21/19 07:50 02/21/19 07:50 02/21/19 07:50 02/21/19 07:50 - Medications Medications: Current Medications Acetaminophen (Tylenol 325mg Tab) 650 mg PO Q6 [facility] Last Admin: 02/21/19 05:36 Dose: 650 mg Atorvastatin Calcium (Lipitor) 40 mg PO DAILY [facility] Last Admin: 02/20/19 09:18 Dose: 40 mg Benzocaine/Menthol (Cepacol Sore Throat) 1 alysa PO Q3 PRN PRN Reason: Sore Throat Cyclobenzaprine HCl (Flexeril) 5 mg PO Q8 [facility] Last Admin: 02/21/19 00:52 Dose: Not Given Dextrose (Dextrose 50% Inj) 0 ml IV STAT PRN; Protocol PRN Reason: Hypoglycemia Protocol Last Admin: 02/06/19 05:35 Dose: 25 ml Dextrose (Glutose 15) 0 gm PO ONCE PRN; Protocol PRN Reason: Hypoglycemia Protocol Digoxin (Lanoxin) 0.125 mg IVP DAILY [facility] Last Admin: 02/20/19 09:25 Dose: 0.125 mg Dimethicone (Proshield Plus Skin Protectant) 1 applic TOP Q8 PRN PRN Reason: derm Last Admin: 02/14/19 09:50 Dose: 1 applic Ergocalciferol (Drisdol 50,000 Intl Units Cap) 1 cap PO FR [facility] Last Admin: 02/15/19 16:47 Dose: Not Given Fluticasone Propionate (Flonase) 2 spr PRIYA DAILY [facility] Last Admin: 02/20/19 09:17 Dose: 2 spr Glucagon (Glucagen Diagnostic Kit) 0 mg IM STAT PRN; Protocol PRN Reason: Hypoglycemia Protocol Hydromorphone HCl (Dilaudid) 1 mg IVP Q4 PRN PRN Reason: Pain, severe (8-10) Iron Sucrose 100 mg/ Sodium (Chloride) 105 mls @ 105 mls/hr IVPB DAILY [facility] Last Admin: 02/12/19 12:07 Dose: 105 mls/hr Insulin Human Regular (Humulin R) 0 units SC ACHS [facility]; Protocol Last Admin: 02/20/19 21:50 Dose: Not Given Lidocaine (Lidoderm) 1 ea TD DAILY [facility] Last Admin: 02/20/19 09:14 Dose: 1 ea Memantine (Namenda) 10 mg PO BID [facility] Last Admin: 02/20/19 17:05 Dose: 10 mg Mesalamine (Rowasa Enema) 4 gm RC HS [facility] Last Admin: 02/20/19 21:51 Dose: Not Given Methylprednisolone (Solu-Medrol) 10 mg IVP BID [facility] Last Admin: 02/20/19 17:06 Dose: 10 mg Metoprolol Tartrate (Lopressor) 2.5 mg IVP Q3 [facility] Last Admin: 02/21/19 05:00 Dose: 2.5 mg Oxycodone HCl (Oxycodone Immediate Release Tab) 5 mg PO Q6 PRN PRN Reason: Pain, moderate (4-7) Sennosides (Senokot Tab) 17.2 mg PO HS [facility] Last Admin: 02/20/19 21:51 Dose: Not Given Sitagliptin Phosphate (Januvia) 25 mg PO DAILY [facility] Last Admin: 02/20/19 09:18 Dose: 25 mg Sucralfate (Carafate Oral Susp) 1 gm PO QID [facility] Last Admin: 02/20/19 21:50 Dose: 1 gm Tamsulosin HCl (Flomax) 0.4 mg PO DAILY [facility] Last Admin: 02/20/19 09:16 Dose: 0.4 mg - Labs Labs: 02/21/19 06:16 02/21/19 06:16 PT 12.8 Seconds (9.8-13.1) 02/14/19 10:00 INR 1.1 02/14/19 10:00 APTT 30.6 Seconds (25.6-37.1) 02/14/19 10:00 Assessment and Plan - Assessment and Plan (Free Text) Plan: All medical record entries made by the resident were at my direction. I have reviewed the chart and agree that the record accurately reflects my personal performance of the history, physical exam, and medical decision making.
--- NOTE | 2019-02-19 08:29 | CP.PCM.PN ---
<Yrn Moncada - Last Filed: 02/19/19 10:00> Subjective - Date & Time of Evaluation Date of Evaluation: 02/19/19 Time of Evaluation: 06:50 - Subjective Subjective: 78 y/o M was seen and examined by bedside with Dr Mathew. Pt awake and alert, reports feeling OK, denies passing gas or BM. Pt had abdominal surgery yesterday. Colostomy bag present with minimal blood residual volume. Pt afebrile with No acute events overnight. Objective - Vital Signs/Intake and Output Vital Signs (last 24 hours): Temp Pulse Resp BP Pulse Ox 97.9 F 68 18 104/67 98 02/19/19 07:56 02/19/19 07:56 02/19/19 07:56 02/19/19 07:56 02/19/19 07:56 Intake and Output: 02/19/19 02/19/19 06:59 18:59 Intake Total 750 Output Total 410 Balance 340 - Medications Medications: Current Medications Acetaminophen (Tylenol 325mg Tab) 650 mg PO Q6 PRN PRN Reason: Pain, Mild (1-3) Last Admin: 02/13/19 10:38 Dose: 650 mg Atorvastatin Calcium (Lipitor) 40 mg PO DAILY [facility] [place] Last Admin: 02/18/19 09:39 Dose: Not Given Benzocaine/Menthol (Cepacol Sore Throat) 1 alysa PO Q3 PRN PRN Reason: Sore Throat Dextrose (Dextrose 50% Inj) 0 ml IV STAT PRN; Protocol PRN Reason: Hypoglycemia Protocol Last Admin: 02/06/19 05:35 Dose: 25 ml Dextrose (Glutose 15) 0 gm PO ONCE PRN; Protocol PRN Reason: Hypoglycemia Protocol Digoxin (Lanoxin) 0.125 mg IVP DAILY [facility] [place] Last Admin: 02/18/19 09:44 Dose: 0.125 mg Dimethicone (Proshield Plus Skin Protectant) 1 applic TOP Q8 PRN PRN Reason: derm Last Admin: 02/14/19 09:50 Dose: 1 applic Ergocalciferol (Drisdol 50,000 Intl Units Cap) 1 cap PO FR [facility] [place] Last Admin: 02/15/19 16:47 Dose: Not Given Fluticasone Propionate (Flonase) 2 spr PRIYA DAILY [facility] [place] Last Admin: 02/18/19 09:36 Dose: 2 spr Glucagon (Glucagen Diagnostic Kit) 0 mg IM STAT PRN; Protocol PRN Reason: Hypoglycemia Protocol Iron Sucrose 100 mg/ Sodium (Chloride) 105 mls @ 105 mls/hr IVPB DAILY [facility] [place] Last Admin: 02/12/19 12:07 Dose: 105 mls/hr Sodium Chloride (Sodium Chloride 0.9%) 1,000 mls @ 75 mls/hr IV .[id number] [facility] [place] Last Admin: 02/19/19 04:29 Dose: Not Given Lactated Ringer's (Lactated Ringer's) 1,000 mls @ 100 mls/hr IV .Q10H [facility] [place] Insulin Human Regular (Humulin R) 0 units SC ACHS [facility] [place]; Protocol Last Admin: 02/18/19 23:51 Dose: Not Given Memantine (Namenda) 10 mg PO BID [facility] [place] Last Admin: 02/18/19 09:40 Dose: Not Given Mesalamine (Rowasa Enema) 4 gm RC HS [facility] [place] Last Admin: 02/19/19 04:40 Dose: Not Given Methylprednisolone (Solu-Medrol) 10 mg IVP BID [facility] [place] Last Admin: 02/18/19 09:40 Dose: 10 mg Metoprolol Tartrate (Lopressor) 2.5 mg IVP Q3 [facility] [place] Last Admin: 02/19/19 04:28 Dose: 2.5 mg Sennosides (Senokot Tab) 17.2 mg PO HS [facility] [place] Last Admin: 02/19/19 04:41 Dose: Not Given Sitagliptin Phosphate (Januvia) 25 mg PO DAILY [facility] [place] Last Admin: 02/18/19 09:39 Dose: Not Given Sucralfate (Carafate Oral Susp) 1 gm PO QID [facility] [place] Last Admin: 02/18/19 21:17 Dose: 1 gm Tamsulosin HCl (Flomax) 0.4 mg PO DAILY [facility] [place] Last Admin: 02/18/19 09:34 Dose: Not Given - Labs Labs: 02/19/19 05:05 02/19/19 05:05 PT 12.8 Seconds (9.8-13.1) 02/14/19 10:00 INR 1.1 02/14/19 10:00 APTT 30.6 Seconds (25.6-37.1) 02/14/19 10:00 - Constitutional Appears: No Acute Distress - Eye Exam Eye Exam: EOMI - ENT Exam ENT Exam: Mucous Membranes Moist - Neck Exam Neck Exam: Full ROM, Normal Inspection. absent: Meningismus - Respiratory Exam Respiratory Exam: NORMAL BREATHING PATTERN. absent: Rales, Rhonchi, Wheezes, Respiratory Distress - Cardiovascular Exam Cardiovascular Exam: Irregular Rhythm, +S1, +S2 - GI/Abdominal Exam GI & Abdominal Exam: Soft, Normal Bowel Sounds. absent: Distended, Guarding, Rigid, Tenderness - Extremities Exam Extremities Exam: absent: Calf Tenderness - Neurological Exam Neurological Exam: Alert, Awake Assessment and Plan (1) Colonic stricture Status: Acute (2) Dementia Status: Chronic (3) CKD (chronic kidney disease) Status: Chronic (4) Diabetes Status: Chronic (5) Gait instability Status: Chronic (6) New onset a-fib Status: Acute (7) Ulcerative colitis, chronic Status: Chronic (8) Acute blood loss anemia Status: Resolved - Assessment and Plan (Free Text) Assessment: 78 y/o male with PMH of Ulcerative colitis, HTN, Bladder Ca, Dementia, prediabetes and CVA in 2007 recently admitted to [facility] for evaluation and management of GI bleeding, colonic stricture and anemia. PLAN: >Colonic stricture --POD#1, afebrile, recovering well. --S/P s/p lap hand assist transverse colostomy . --Gen Surgery on tamra, Dr Del Cid. --GI on board, Dr Abdul. Once colostomy has matured will schedule for colonoscopy. --Continue pain management as ordered. >Ulcerative Colitis --Chronic --GI on board, Dr Abdul --C/w home med: Mesalamine >Normocytic Anemia, --Chronic, likely due to GI bleeding. --S/p PRBC x 4 units transfused, last transfusion yesterday. --Hgb 11.4 - satble --Monitor CBC and possible bleeding. >Afib --New onset this admission --Continuous cardiac monitoring. --Rate control: IV Metoprolol 2.5mg Q3H and IV digoxin 0.125mg daily --Cardiology on board, Dr. Potts. --Considering Watchman procedure >Scalp laceration 2/2 fall --Stable --CT head: Stable with no definitive acute intracranial findings by standard CT criteria. --Monitor vitals, progression, neuro deficits >CKD, Stage 1 --Acute on chronic kidney disease with solitary R kidney. --Nephrology on board, Dr. Boone. --Monitor urine output. >HTN --Chronic, controlled --Monitor vitals >DM2 --Chronic, controlled as last HbA1c 6.1 on 01/16/19. --C/w hoem meds --ISS and hypoglycemia protocol in place > Chronic Rhinitis --C/w Fluticasone PRN >Gait instability --PT/OT eval/treat --fall precautions >DVT/wound prophylaxis --SCD's (recent active GI bleed) --C/w Proshield Case discussed with Dr Mathew. [place] PGY-2 <Gatito Mathew - Last Filed: 02/23/19 15:13> Objective - Vital Signs/Intake and Output Vital Signs (last 24 hours): Temp Pulse Resp BP Pulse Ox 97.8 F 130 H 20 112/57 L 98 02/23/19 13:00 02/23/19 13:00 02/23/19 13:00 02/23/19 13:00 02/23/19 13:00 Intake and Output: 02/23/19 02/23/19 11:59 23:59 Intake Total 650 Output Total 600 Balance 50 - Medications Medications: Current Medications Acetaminophen (Tylenol 325mg Tab) 650 mg PO Q6 [facility] Last Admin: 02/23/19 09:08 Dose: 650 mg Atorvastatin Calcium (Lipitor) 40 mg PO DAILY [facility] [place] Last Admin: 02/23/19 08:49 Dose: 40 mg Benzocaine/Menthol (Cepacol Sore Throat) 1 alysa PO Q3 PRN PRN Reason: Sore Throat Cyclobenzaprine HCl (Flexeril) 5 mg PO Q8 [facility] [place] Last Admin: 02/21/19 00:52 Dose: Not Given Dextrose (Dextrose 50% Inj) 0 ml IV STAT PRN; Protocol PRN Reason: Hypoglycemia Protocol Last Admin: 02/06/19 05:35 Dose: 25 ml Dextrose (Glutose 15) 0 gm PO ONCE PRN; Protocol PRN Reason: Hypoglycemia Protocol Digoxin (Lanoxin) 0.125 mg IVP DAILY [facility] [place] Last Admin: 02/23/19 08:43 Dose: 0.125 mg Dimethicone (Proshield Plus Skin Protectant) 1 applic TOP Q8 PRN PRN Reason: derm Last Admin: 02/14/19 09:50 Dose: 1 applic Ergocalciferol (Drisdol 50,000 Intl Units Cap) 1 cap PO FR [facility] [place] Last Admin: 02/22/19 16:04 Dose: 1 cap Fluticasone Propionate (Flonase) 2 spr PRIYA DAILY [facility] [place] Last Admin: 02/23/19 08:57 Dose: 2 spr Glucagon (Glucagen Diagnostic Kit) 0 mg IM STAT PRN; Protocol PRN Reason: Hypoglycemia Protocol Hydromorphone HCl (Dilaudid) 1 mg IVP Q4 PRN PRN Reason: Pain, severe (8-10) Last Admin: 02/23/19 00:55 Dose: 1 mg Iron Sucrose 100 mg/ Sodium (Chloride) 105 mls @ 105 mls/hr IVPB DAILY [facility] [place] Last Admin: 02/12/19 12:07 Dose: 105 mls/hr Dextrose/Sodium Chloride (Dextrose 5%/0.9% Ns 1000 Ml) 1,000 mls @ 100 mls/hr IV .Q10H [facility] [place] Stop: 02/24/19 13:40 Insulin Human Regular (Humulin R) 0 units SC ACHS [facility] [place]; Protocol Last Admin: 02/23/19 12:55 Dose: Not Given Lidocaine (Lidoderm) 1 ea TD DAILY [facility] [place] Last Admin: 02/23/19 08:48 Dose: 1 ea Memantine (Namenda) 10 mg PO BID [facility] [place] Last Admin: 02/23/19 08:50 Dose: 10 mg Mesalamine (Rowasa Enema) 4 gm RC HS [facility] [place] Last Admin: 02/22/19 21:22 Dose: Not Given Methylprednisolone (Solu-Medrol) 10 mg IVP BID [facility] [place] Last Admin: 02/23/19 08:53 Dose: 10 mg Metoprolol Tartrate (Lopressor) 2.5 mg IVP Q3 [facility] [place] Last Admin: 02/23/19 12:56 Dose: 2.5 mg Ondansetron HCl (Zofran Inj) 4 mg IVP Q4 PRN PRN Reason: Nausea/Vomiting Last Admin: 02/22/19 15:57 Dose: 4 mg Oxycodone HCl (Oxycodone Immediate Release Tab) 5 mg PO Q6 PRN PRN Reason: Pain, moderate (4-7) Sennosides (Senokot Tab) 17.2 mg PO HS [facility] [place] Last Admin: 04/19/19 21:22 Dose: Not Given Sitagliptin Phosphate (Januvia) 25 mg PO DAILY [facility] [place] Last Admin: 02/23/19 08:58 Dose: 25 mg Sucralfate (Carafate Oral Susp) 1 gm PO QID [facility] [place] Last Admin: 02/23/19 12:55 Dose: 1 gm Tamsulosin HCl (Flomax) 0.4 mg PO DAILY [facility] [place] Last Admin: 02/23/19 08:57 Dose: 0.4 mg - Labs Labs: 02/23/19 04:25 02/23/19 04:25 PT 12.8 Seconds (9.8-13.1) 02/14/19 10:00 INR 1.1 02/14/19 10:00 APTT 30.6 Seconds (25.6-37.1) 02/14/19 10:00 Assessment and Plan - Assessment and Plan (Free Text) Assessment: Patient was personally seen and examined by me in rounds with residents. Available labs and diagnostic data reviewed. Case, Patient's condition and management plan discussed with residents in rounds. Agree with resident's progress note. Plan: As ordered.
[2019-02-19] MEDS ORDERED: HYDROmorphone 0.5 mg/0.5 ml ISec IVP ONE (09:27)
[2019-02-19] MEDS: Digoxin 500 mcg/2ml (0.5 mg/2ml) Inj IVP SCH (10:38)
[2019-02-19] MEDS: Sucralfate 1 gm/10 ml Oral Susp UD PO SCH ×4 (10:39→22:00)
[2019-02-19] MEDS: Insulin Regular 100 units/ml SC SCH ×3 (10:41→21:37)
[2019-02-19] MEDS: MethylPREDNISolone 40 mg Vial IVP SCH ×2 (10:44→17:55)
--- NOTE | 2019-02-19 12:40 | VASCULAR ---
PROCEDURE: Date of procedure: 02/13/2019 Procedure: 1. Placement of a right arm PICC with ultrasound and fluoroscopic guidance, CPT 32138 2. PICC tip confirmation with spot radiograph and is in the superior vena cava Medications: 1 percent lidocaine Total Fluoro time: 1.7 Seconds Radiation: 0.13 MGy EBL: 2 cc HISTORY: Infection requiring long-term IV antibiotics TECHNIQUE: Following informed consent and procedure time-out, the patient was placed supine on the interventional table and the right arm prepped and draped in the usual sterile fashion. Ultrasound showed a patent and compressible right basilic vein. After the skin was anesthetized with lidocaine, the basilic vein was accessed with micro micropuncture technique using ultrasound guidance. A guidewire was then advanced under fluoroscopic guidance into the superior vena cava. An image documenting ultrasound guidance for vascular access was permanently saved. The length of the single-lumen 4 [place] PICC was trimmed to 35 centimeters and advanced through a peel-away sheath. The PICC was position with tip of PICC confirm a spot radiograph the superior vena cava. The PICC was secured to the patient's skin. The PICC was flushed. A biopatch and sterile dressing was applied. IMPRESSION: Placement of a single-lumen 4 [place] PICC trimmed to 35 centimeters via right basilic vein. The tip of the PICC is confirmed with spot radiograph and is in the superior vena cava.
--- NOTE | 2019-02-19 14:26 | CP.PCM.PN ---
Subjective - Date & Time of Evaluation Date of Evaluation: 02/19/19 Time of Evaluation: 01:55 - Subjective Subjective: Awake. Appears comfortable Objective - Vital Signs/Intake and Output Vital Signs (last 24 hours): Temp Pulse Resp BP Pulse Ox 97.7 F 74 18 97/65 L 98 02/19/19 12:00 02/19/19 12:00 02/19/19 12:00 02/19/19 12:00 02/19/19 12:00 Intake and Output: 02/19/19 02/19/19 06:59 18:59 Intake Total 750 Output Total 410 Balance 340 - Medications Medications: Current Medications Acetaminophen (Tylenol 325mg Tab) 650 mg PO Q6 PRN PRN Reason: Pain, Mild (1-3) Last Admin: 02/13/19 10:38 Dose: 650 mg Atorvastatin Calcium (Lipitor) 40 mg PO DAILY [facility] Last Admin: 02/19/19 10:42 Dose: Not Given Benzocaine/Menthol (Cepacol Sore Throat) 1 alysa PO Q3 PRN PRN Reason: Sore Throat Dextrose (Dextrose 50% Inj) 0 ml IV STAT PRN; Protocol PRN Reason: Hypoglycemia Protocol Last Admin: 02/06/19 05:35 Dose: 25 ml Dextrose (Glutose 15) 0 gm PO ONCE PRN; Protocol PRN Reason: Hypoglycemia Protocol Digoxin (Lanoxin) 0.125 mg IVP DAILY [facility] Last Admin: 02/19/19 10:38 Dose: 0.125 mg Dimethicone (Proshield Plus Skin Protectant) 1 applic TOP Q8 PRN PRN Reason: derm Last Admin: 02/14/19 09:50 Dose: 1 applic Ergocalciferol (Drisdol 50,000 Intl Units Cap) 1 cap PO FR [facility] Last Admin: 02/15/19 16:47 Dose: Not Given Fluticasone Propionate (Flonase) 2 spr PRIYA DAILY [facility] Last Admin: 02/19/19 10:40 Dose: 2 spr Glucagon (Glucagen Diagnostic Kit) 0 mg IM STAT PRN; Protocol PRN Reason: Hypoglycemia Protocol Iron Sucrose 100 mg/ Sodium (Chloride) 105 mls @ 105 mls/hr IVPB DAILY [facility] Last Admin: 02/12/19 12:07 Dose: 105 mls/hr Sodium Chloride (Sodium Chloride 0.9%) 1,000 mls @ 75 mls/hr IV .[id number] [facility] Last Admin: 02/19/19 04:29 Dose: Not Given Lactated Ringer's (Lactated Ringer's) 1,000 mls @ 100 mls/hr IV .Q10H [facility] Insulin Human Regular (Humulin R) 0 units SC ACHS [facility]; Protocol Last Admin: 02/19/19 10:41 Dose: Not Given Memantine (Namenda) 10 mg PO BID [facility] Last Admin: 02/19/19 10:43 Dose: Not Given Mesalamine (Rowasa Enema) 4 gm RC [facility] Last Admin: 02/19/19 04:40 Dose: Not Given Methylprednisolone (Solu-Medrol) 10 mg IVP BID [facility] Last Admin: 02/19/19 10:44 Dose: 10 mg Metoprolol Tartrate (Lopressor) 2.5 mg IVP Q3 [facility] Last Admin: 02/19/19 10:42 Dose: Not Given Sennosides (Senokot Tab) 17.2 mg PO [facility] Last Admin: 02/19/19 04:41 Dose: Not Given Sitagliptin Phosphate (Januvia) 25 mg PO DAILY [facility] Last Admin: 02/19/19 10:42 Dose: Not Given Sucralfate (Carafate Oral Susp) 1 gm PO QID [facility] Last Admin: 02/19/19 10:39 Dose: Not Given Tamsulosin HCl (Flomax) 0.4 mg PO DAILY [facility] Last Admin: 02/19/19 10:40 Dose: Not Given - Labs Labs: 02/19/19 05:05 02/19/19 05:05 PT 12.8 Seconds (9.8-13.1) 02/14/19 10:00 INR 1.1 02/14/19 10:00 APTT 30.6 Seconds (25.6-37.1) 02/14/19 10:00 - Head Exam Head Exam: ATRAUMATIC, NORMOCEPHALIC - Eye Exam Eye Exam: Normal appearance - ENT Exam ENT Exam: Mucous Membranes Moist - Respiratory Exam Respiratory Exam: NORMAL BREATHING PATTERN Additional comments: Lungs clear - Cardiovascular Exam Cardiovascular Exam: Irregular Rhythm Additional comments: 88/min - GI/Abdominal Exam GI & Abdominal Exam: Soft - Extremities Exam Additional comments: No edema Assessment and Plan - Assessment and Plan (Free Text) Assessment: S/P lap tranverse colostomy ( Colonic stricture) Stage 111 kidney dis. Renal function remains stable Electrolytes are corrected A. fib with controlled ventricular response. Plan: Continue to monitor renal parameters Monitor urine out put
[2019-02-19] MEDS ORDERED: oxyCODONE 5 mg Immediate Release Tab PO PRN (14:55)
[2019-02-19] MEDS ORDERED: Lactated Ringer's 500 ML IV SCH (15:00)
[2019-02-19] MEDS: Lidocaine 5% Patch TD SCH (17:51)
--- NOTE | 2019-02-19 23:37 | CP.PCM.PN ---
Subjective - Date & Time of Evaluation Date of Evaluation: 02/19/19 Time of Evaluation: 19:00 - Subjective Subjective: Patient appppears comfortable. S/p colostomy. Objective - Vital Signs/Intake and Output Vital Signs (last 24 hours): Temp Pulse Resp BP Pulse Ox 98.6 F 83 19 114/76 94 L 02/19/19 21:32 02/19/19 21:21 02/19/19 19:34 02/19/19 21:21 02/19/19 19:34 Intake and Output: 02/19/19 02/20/19 18:59 06:59 Intake Total 375 Output Total 650 Balance -275 - Medications Medications: Current Medications Acetaminophen (Tylenol 325mg Tab) 650 mg PO Q6 [facility] Last Admin: 02/19/19 21:32 Dose: 650 mg Atorvastatin Calcium (Lipitor) 40 mg PO DAILY [facility] Last Admin: 02/19/19 10:42 Dose: Not Given Benzocaine/Menthol (Cepacol Sore Throat) 1 alysa PO Q3 PRN PRN Reason: Sore Throat Cyclobenzaprine HCl (Flexeril) 5 mg PO Q8 [facility] Last Admin: 02/19/19 18:08 Dose: Not Given Dextrose (Dextrose 50% Inj) 0 ml IV STAT PRN; Protocol PRN Reason: Hypoglycemia Protocol Last Admin: 02/06/19 05:35 Dose: 25 ml Dextrose (Glutose 15) 0 gm PO ONCE PRN; Protocol PRN Reason: Hypoglycemia Protocol Digoxin (Lanoxin) 0.125 mg IVP DAILY [facility] Last Admin: 02/19/19 10:38 Dose: 0.125 mg Dimethicone (Proshield Plus Skin Protectant) 1 applic TOP Q8 PRN PRN Reason: derm Last Admin: 02/14/19 09:50 Dose: 1 applic Ergocalciferol (Drisdol 50,000 Intl Units Cap) 1 cap PO FR [facility] Last Admin: 02/15/19 16:47 Dose: Not Given Fluticasone Propionate (Flonase) 2 spr PRIYA DAILY [facility] Last Admin: 02/19/19 10:40 Dose: 2 spr Glucagon (Glucagen Diagnostic Kit) 0 mg IM STAT PRN; Protocol PRN Reason: Hypoglycemia Protocol Hydromorphone HCl (Dilaudid) 1 mg IVP Q4 PRN PRN Reason: Pain, severe (8-10) Iron Sucrose 100 mg/ Sodium (Chloride) 105 mls @ 105 mls/hr IVPB DAILY [facility] Last Admin: 02/12/19 12:07 Dose: 105 mls/hr Lactated Ringer's (Lactated Ringer's) 1,000 mls @ 100 mls/hr IV .Q10H [facility] Insulin Human Regular (Humulin R) 0 units SC ACHS [facility]; Protocol Last Admin: 02/19/19 21:37 Dose: Not Given Lidocaine (Lidoderm) 1 ea TD DAILY [facility] Last Admin: 02/19/19 17:51 Dose: Not Given Memantine (Namenda) 10 mg PO BID [facility] Last Admin: 02/19/19 17:55 Dose: Not Given Mesalamine (Rowasa Enema) 4 gm RC HS [facility] Last Admin: 02/19/19 21:27 Dose: Not Given Methylprednisolone (Solu-Medrol) 10 mg IVP BID [facility] Last Admin: 02/19/19 17:55 Dose: 10 mg Metoprolol Tartrate (Lopressor) 2.5 mg IVP Q3 [facility] Last Admin: 02/19/19 21:21 Dose: 2.5 mg Oxycodone HCl (Oxycodone Immediate Release Tab) 5 mg PO Q6 PRN PRN Reason: Pain, moderate (4-7) Sennosides (Senokot Tab) 17.2 mg PO HS [facility] Last Admin: 02/19/19 21:27 Dose: Not Given Sitagliptin Phosphate (Januvia) 25 mg PO DAILY [facility] Last Admin: 02/19/19 10:42 Dose: Not Given Sucralfate (Carafate Oral Susp) 1 gm PO QID [facility] Last Admin: 02/19/19 18:04 Dose: Not Given Tamsulosin HCl (Flomax) 0.4 mg PO DAILY [facility] Last Admin: 02/19/19 10:40 Dose: Not Given - Labs Labs: 02/19/19 05:05 02/19/19 05:05 PT 12.8 Seconds (9.8-13.1) 02/14/19 10:00 INR 1.1 02/14/19 10:00 APTT 30.6 Seconds (25.6-37.1) 02/14/19 10:00 - Head Exam Head Exam: ATRAUMATIC - Eye Exam Eye Exam: Normal appearance - ENT Exam ENT Exam: Normal Exam - Neck Exam Neck Exam: Full ROM - Respiratory Exam Respiratory Exam: Clear to Ausculation Bilateral - Cardiovascular Exam Cardiovascular Exam: REGULAR RHYTHM - GI/Abdominal Exam GI & Abdominal Exam: Soft. absent: Tenderness Assessment and Plan (1) GI bleed Assessment & Plan: Minimal bleeding at present. had colostomy for rectosigmoid stricture. Colonoscopy when cleared by surgery. Status: Resolved (2) Colonic stricture Status: Acute
[2019-02-19] MEDS: Lactated Ringer's 1,000 ML IV SCH (23:45)
[2019-02-20] MEDS: Metoprolol 1 mg/ml Inj IVP SCH ×8 (00:24→21:54)
[2019-02-20] MEDS: Insulin Regular 100 units/ml SC SCH ×4 (06:42→21:50)
[2019-02-20 07:07] LABS: HEMOGLOBIN 10.3 g/dL (12.0-18.0); MEAN CELL VOLUME 83.9 fl (80.0-94.0); MEAN CORPUSCULAR HEMOGLOBIN 26.6 pg (27.0-31.0); MEAN CORPUSCULAR HGB CONC 31.7 g/dL (33.0-37.0); RBC 3.87 Mil/uL (4.40-5.90); RED CELL DISTRIBUTION WIDTH 21.7 % (11.5-14.5); WHITE BLOOD COUNT 12.1 K/uL (4.8-10.8)
[2019-02-20 07:39] LABS: ALB/GLOB RATIO 0.8 (1.0-2.1); ALBUMIN 1.9 g/dL (3.5-5.0); CALCIUM 7.1 mg/dL (8.4-10.2)
[2019-02-20] MEDS ORDERED: Magnesium Sulfate 2 gm/50 ml 2 GM/50 ML BAG IVPB ONE (08:53)
[2019-02-20] MEDS ORDERED: Potassium Chloride 20 mEq/15 ml LIQ UD PO ONE ×2 (08:54→18:00)
--- NOTE | 2019-02-20 09:06 | CP.PCM.PN ---
<Yrn Moncada - Last Filed: 02/20/19 10:17> Subjective - Date & Time of Evaluation Date of Evaluation: 02/20/19 Time of Evaluation: 07:30 - Subjective Subjective: 78 y/o M was seen and examined by bedside with Dr Mathew. Pt is POD 2, awake and alert, responds to tactile and verbal stimuli, reports feeling so-so, denies passing gas or BM. Colostomy bag present with liquid stool volume. Pt afebrile with NO acute events overnight. Objective - Vital Signs/Intake and Output Vital Signs (last 24 hours): Temp Pulse Resp BP Pulse Ox 97.6 F 79 18 104/66 99 02/20/19 07:57 02/20/19 07:57 02/20/19 07:57 02/20/19 07:57 02/20/19 07:57 - Medications Medications: Current Medications Acetaminophen (Tylenol 325mg Tab) 650 mg PO Q6 [facility] Last Admin: 02/20/19 04:57 Dose: 650 mg Atorvastatin Calcium (Lipitor) 40 mg PO DAILY [facility] Last Admin: 02/19/19 10:42 Dose: Not Given Benzocaine/Menthol (Cepacol Sore Throat) 1 alysa PO Q3 PRN PRN Reason: Sore Throat Cyclobenzaprine HCl (Flexeril) 5 mg PO Q8 [facility] Last Admin: 02/20/19 00:14 Dose: 5 mg Dextrose (Dextrose 50% Inj) 0 ml IV STAT PRN; Protocol PRN Reason: Hypoglycemia Protocol Last Admin: 02/06/19 05:35 Dose: 25 ml Dextrose (Glutose 15) 0 gm PO ONCE PRN; Protocol PRN Reason: Hypoglycemia Protocol Digoxin (Lanoxin) 0.125 mg IVP DAILY [facility] Last Admin: 02/19/19 10:38 Dose: 0.125 mg Dimethicone (Proshield Plus Skin Protectant) 1 applic TOP Q8 PRN PRN Reason: derm Last Admin: 02/14/19 09:50 Dose: 1 applic Ergocalciferol (Drisdol 50,000 Intl Units Cap) 1 cap PO FR [facility] Last Admin: 02/15/19 16:47 Dose: Not Given Fluticasone Propionate (Flonase) 2 spr PRIYA DAILY [facility] Last Admin: 02/19/19 10:40 Dose: 2 spr Glucagon (Glucagen Diagnostic Kit) 0 mg IM STAT PRN; Protocol PRN Reason: Hypoglycemia Protocol Hydromorphone HCl (Dilaudid) 1 mg IVP Q4 PRN PRN Reason: Pain, severe (8-10) Iron Sucrose 100 mg/ Sodium (Chloride) 105 mls @ 105 mls/hr IVPB DAILY [facility] Last Admin: 02/12/19 12:07 Dose: 105 mls/hr Lactated Ringer's (Lactated Ringer's) 1,000 mls @ 100 mls/hr IV .Q10H [facility] Last Admin: 02/19/19 23:45 Dose: 100 mls/hr Magnesium Sulfate (Magnesium Sulfate 2 Gm/50 Ml Water) 2 gm in 50 mls @ 50 mls/hr IVPB ONCE ONE Stop: 02/20/19 09:52 Potassium Chloride (Potassium Chloride 20 Meq/100 Ml) 100 mls @ 50 mls/hr IVPB Q2 [facility] Stop: 02/20/19 13:59 Insulin Human Regular (Humulin R) 0 units SC ACHS [facility]; Protocol Last Admin: 02/20/19 06:42 Dose: Not Given Lidocaine (Lidoderm) 1 ea TD DAILY [facility] Last Admin: 02/19/19 17:51 Dose: Not Given Memantine (Namenda) 10 mg PO BID [facility] Last Admin: 02/19/19 17:55 Dose: Not Given Mesalamine (Rowasa Enema) 4 gm RC HS [facility] Last Admin: 02/19/19 21:27 Dose: Not Given Methylprednisolone (Solu-Medrol) 10 mg IVP BID [facility] Last Admin: 02/19/19 17:55 Dose: 10 mg Metoprolol Tartrate (Lopressor) 2.5 mg IVP Q3 [facility] Last Admin: 02/20/19 04:54 Dose: 2.5 mg Oxycodone HCl (Oxycodone Immediate Release Tab) 5 mg PO Q6 PRN PRN Reason: Pain, moderate (4-7) Sennosides (Senokot Tab) 17.2 mg PO HS [facility] Last Admin: 02/19/19 21:27 Dose: Not Given Sitagliptin Phosphate (Januvia) 25 mg PO DAILY [facility] Last Admin: 02/19/19 10:42 Dose: Not Given Sucralfate (Carafate Oral Susp) 1 gm PO QID [facility] Last Admin: 02/19/19 22:00 Dose: 1 gm Tamsulosin HCl (Flomax) 0.4 mg PO DAILY [facility] Last Admin: 02/19/19 10:40 Dose: Not Given - Labs Labs: 02/20/19 06:54 02/20/19 06:54 PT 12.8 Seconds (9.8-13.1) 02/14/19 10:00 INR 1.1 02/14/19 10:00 APTT 30.6 Seconds (25.6-37.1) 02/14/19 10:00 - Constitutional Appears: No Acute Distress - Head Exam Head Exam: ATRAUMATIC, NORMAL INSPECTION - Eye Exam Eye Exam: EOMI - ENT Exam ENT Exam: Mucous Membranes Moist - Respiratory Exam Respiratory Exam: NORMAL BREATHING PATTERN. absent: Rales, Rhonchi, Wheezes, Re spiratory Distress - Cardiovascular Exam Cardiovascular Exam: +S1, +S2 - GI/Abdominal Exam GI & Abdominal Exam: Soft. absent: Distended, Guarding, Rigid, Tenderness Additional comments: Transverse colostomy patent with light brown liquid stools. - Extremities Exam Extremities Exam: Normal Capillary Refill - Neurological Exam Neurological Exam: Alert, Awake Assessment and Plan (1) Colonic stricture Status: Acute (2) Dementia Status: Chronic (3) CKD (chronic kidney disease) Status: Chronic (4) Diabetes Status: Chronic (5) Gait instability Status: Chronic (6) New onset a-fib Status: Acute (7) Ulcerative colitis, chronic Status: Chronic - Assessment and Plan (Free Text) Assessment: 78 y/o male with PMH of Ulcerative colitis, HTN, Bladder Ca, Dementia, prediabetes and CVA in 2007 recently admitted to [facility] for evaluation and management of GI bleeding, colonic stricture and anemia. PLAN: >Colonic stricture --POD#1, afebrile, recovering well. --S/P s/p lap hand assist transverse colostomy . --Gen Surgery on Dr Nehemias barboza. --GI on board, Dr Abdul. Once colostomy has matured will schedule for colonoscopy. --Continue pain management as ordered. >Hypokalemia --Serum K+ 2.9. --PO KCL 40mEq + IV KCL 40mEq ordered. --Magnesium ordered, as serum Mg is at low borderline normal. --Repeat BMP this afternoon. >Ulcerative Colitis --Chronic --GI on board, Dr Abdul --On Methyl-prednisolone --Colonoscopy when stable as per GI. --C/w home med: Mesalamine >Normocytic Anemia, --Chronic, likely due to GI bleeding. --S/p PRBC x 4 units transfused. --Hgb 10.3 - stable --Monitor CBC and possible bleeding. >Afib --New onset this admission --Continuous cardiac monitoring. --Rate control: IV Metoprolol 2.5mg Q3H and IV digoxin 0.125mg daily --Cardiology on board, Dr. Potts. --Considering Watchman procedure >CKD, Stage 1 --Acute on chronic kidney disease with solitary R kidney. --Nephrology on board, Dr. Boone. --Monitor urine output. >HTN --Chronic, controlled --Monitor vitals >DM2 --Chronic, controlled as last HbA1c 6.1 on 01/16/19. --C/w home meds --ISS and hypoglycemia protocol in place >Gait instability --PT/OT eval/treat --fall precautions >DVT/wound prophylaxis --SCD's (recent active GI bleed) --C/w Proshield Case discussed with Dr Mathew. Coral PGY-2 <Gatito Mathew - Last Filed: 02/23/19 15:14> Objective - Vital Signs/Intake and Output Vital Signs (last 24 hours): Temp Pulse Resp BP Pulse Ox 97.8 F 130 H 20 112/57 L 98 02/23/19 13:00 02/23/19 13:00 02/23/19 13:00 02/23/19 13:00 02/23/19 13:00 Intake and Output: 02/23/19 02/23/19 11:59 23:59 Intake Total 650 Output Total 600 Balance 50 - Medications Medications: Current Medications Acetaminophen (Tylenol 325mg Tab) 650 mg PO Q6 [facility] Last Admin: 02/23/19 09:08 Dose: 650 mg Atorvastatin Calcium (Lipitor) 40 mg PO DAILY [facility] Last Admin: 02/23/19 08:49 Dose: 40 mg Benzocaine/Menthol (Cepacol Sore Throat) 1 alysa PO Q3 PRN PRN Reason: Sore Throat Cyclobenzaprine HCl (Flexeril) 5 mg PO Q8 [facility] Last Admin: 02/21/19 00:52 Dose: Not Given Dextrose (Dextrose 50% Inj) 0 ml IV STAT PRN; Protocol PRN Reason: Hypoglycemia Protocol Last Admin: 02/06/19 05:35 Dose: 25 ml Dextrose (Glutose 15) 0 gm PO ONCE PRN; Protocol PRN Reason: Hypoglycemia Protocol Digoxin (Lanoxin) 0.125 mg IVP DAILY [facility] Last Admin: 02/23/19 08:43 Dose: 0.125 mg Dimethicone (Proshield Plus Skin Protectant) 1 applic TOP Q8 PRN PRN Reason: derm Last Admin: 02/14/19 09:50 Dose: 1 applic Ergocalciferol (Drisdol 50,000 Intl Units Cap) 1 cap PO FR [facility] Last Admin: 02/22/19 16:04 Dose: 1 cap Fluticasone Propionate (Flonase) 2 spr PRIYA DAILY [facility] Last Admin: 02/23/19 08:57 Dose: 2 spr Glucagon (Glucagen Diagnostic Kit) 0 mg IM STAT PRN; Protocol PRN Reason: Hypoglycemia Protocol Hydromorphone HCl (Dilaudid) 1 mg IVP Q4 PRN PRN Reason: Pain, severe (8-10) Last Admin: 02/23/19 00:55 Dose: 1 mg Iron Sucrose 100 mg/ Sodium (Chloride) 105 mls @ 105 mls/hr IVPB DAILY [facility] Last Admin: 02/12/19 12:07 Dose: 105 mls/hr Dextrose/Sodium Chloride (Dextrose 5%/0.9% Ns 1000 Ml) 1,000 mls @ 100 mls/hr IV .Q10H [facility] Stop: 02/24/19 13:40 Insulin Human Regular (Humulin R) 0 units SC ACHS [facility]; Protocol Last Admin: 02/23/19 12:55 Dose: Not Given Lidocaine (Lidoderm) 1 ea TD DAILY [facility] Last Admin: 02/23/19 08:48 Dose: 1 ea Memantine (Namenda) 10 mg PO BID [facility] Last Admin: 02/23/19 08:50 Dose: 10 mg Mesalamine (Rowasa Enema) 4 gm RC HS [facility] Last Admin: 02/22/19 21:22 Dose: Not Given Methylprednisolone (Solu-Medrol) 10 mg IVP BID [facility] Last Admin: 02/23/19 08:53 Dose: 10 mg Metoprolol Tartrate (Lopressor) 2.5 mg IVP Q3 [facility] Last Admin: 02/23/19 12:56 Dose: 2.5 mg Ondansetron HCl (Zofran Inj) 4 mg IVP Q4 PRN PRN Reason: Nausea/Vomiting Last Admin: 02/22/19 15:57 Dose: 4 mg Oxycodone HCl (Oxycodone Immediate Release Tab) 5 mg PO Q6 PRN PRN Reason: Pain, moderate (4-7) Sennosides (Senokot Tab) 17.2 mg PO HS [facility] Last Admin: 02/22/19 21:22 Dose: Not Given Sitagliptin Phosphate (Januvia) 25 mg PO DAILY [facility] Last Admin: 02/23/19 08:58 Dose: 25 mg Sucralfate (Carafate Oral Susp) 1 gm PO QID [facility] Last Admin: 02/23/19 12:55 Dose: 1 gm Tamsulosin HCl (Flomax) 0.4 mg PO DAILY [facility] Last Admin: 02/23/19 08:57 Dose: 0.4 mg - Labs Labs: 02/23/19 04:25 02/23/19 04:25 PT 12.8 Seconds (9.8-13.1) 02/14/19 10:00 INR 1.1 02/14/19 10:00 APTT 30.6 Seconds (25.6-37.1) 02/14/19 10:00 Assessment and Plan - Assessment and Plan (Free Text) Assessment: Patient was personally seen and examined by me in rounds with residents. Available labs and diagnostic data reviewed. Case, Patient's condition and management plan discussed with residents in valerie ds. Agree with resident's progress note. Plan: As ordered.
[2019-02-20] MEDS: Lidocaine 5% Patch TD SCH (09:14)
[2019-02-20] MEDS: Sucralfate 1 gm/10 ml Oral Susp UD PO SCH ×4 (09:15→21:50)
[2019-02-20] MEDS: Lactated Ringer's 1,000 ML IV SCH (09:17)
[2019-02-20] MEDS: MethylPREDNISolone 40 mg Vial IVP SCH ×2 (09:20→17:06)
[2019-02-20] MEDS: Digoxin 500 mcg/2ml (0.5 mg/2ml) Inj IVP SCH (09:25)
[2019-02-20] MEDS: Potassium Chloride 20 mEq 100 ML IVPB SCH ×2 (10:33→15:02)
--- NOTE | 2019-02-20 12:04 | CP.PCM.PN ---
<Gale Gutierres - Last Filed: 02/20/19 12:10> Subjective - Date & Time of Evaluation Date of Evaluation: 02/20/19 Time of Evaluation: 12:00 - Subjective Subjective: General Surgery Progress Note: Dr. Rivera Patient seen and examined at bedside this am, POD#2 lap hand assist transverse colostomy. Patient resting comfortably, no acute events overnight. Patient states that he has mild abdominal pain this morning, however pain is controlled with medication. Denies nausea/vomiting/fever/chills. Colostomy with stoma output. Jony with 50 cc/24hrs. Objective - Vital Signs/Intake and Output Vital Signs (last 24 hours): Temp Pulse Resp BP Pulse Ox 97.6 F 79 18 104/66 99 02/20/19 07:57 02/20/19 09:25 02/20/19 07:57 02/20/19 09:25 02/20/19 07:57 - Medications Medications: Current Medications Acetaminophen (Tylenol 325mg Tab) 650 mg PO Q6 [facility] Last Admin: 02/20/19 11:19 Dose: 650 mg Atorvastatin Calcium (Lipitor) 40 mg PO DAILY [facility] Last Admin: 02/20/19 09:18 Dose: 40 mg Benzocaine/Menthol (Cepacol Sore Throat) 1 alysa PO Q3 PRN PRN Reason: Sore Throat Cyclobenzaprine HCl (Flexeril) 5 mg PO Q8 [facility] Last Admin: 02/20/19 09:16 Dose: 5 mg Dextrose (Dextrose 50% Inj) 0 ml IV STAT PRN; Protocol PRN Reason: Hypoglycemia Protocol Last Admin: 02/06/19 05:35 Dose: 25 ml Dextrose (Glutose 15) 0 gm PO ONCE PRN; Protocol PRN Reason: Hypoglycemia Protocol Digoxin (Lanoxin) 0.125 mg IVP DAILY [facility] Last Admin: 02/20/19 09:25 Dose: 0.125 mg Dimethicone (Proshield Plus Skin Protectant) 1 applic TOP Q8 PRN PRN Reason: derm Last Admin: 02/14/19 09:50 Dose: 1 applic Ergocalciferol (Drisdol 50,000 Intl Units Cap) 1 cap PO FR [facility] Last Admin: 02/15/19 16:47 Dose: Not Given Fluticasone Propionate (Flonase) 2 spr PRIYA DAILY [facility] Last Admin: 02/20/19 09:17 Dose: 2 spr Glucagon (Glucagen Diagnostic Kit) 0 mg IM STAT PRN; Protocol PRN Reason: Hypoglycemia Protocol Hydromorphone HCl (Dilaudid) 1 mg IVP Q4 PRN PRN Reason: Pain, severe (8-10) Iron Sucrose 100 mg/ Sodium (Chloride) 105 mls @ 105 mls/hr IVPB DAILY [facility] Last Admin: 02/12/19 12:07 Dose: 105 mls/hr Potassium Chloride (Potassium Chloride 20 Meq/100 Ml) 100 mls @ 50 mls/hr IVPB Q2 [facility] Stop: 02/20/19 13:59 Last Admin: 02/20/19 10:33 Dose: 50 mls/hr Insulin Human Regular (Humulin R) 0 units SC ACHS [facility]; Protocol Last Admin: 02/20/19 06:42 Dose: Not Given Lidocaine (Lidoderm) 1 ea TD DAILY [facility] Last Admin: 02/20/19 09:14 Dose: 1 ea Memantine (Namenda) 10 mg PO BID [facility] Last Admin: 02/20/19 09:19 Dose: 10 mg Mesalamine (Rowasa Enema) 4 gm RC HS [facility] Last Admin: 02/19/19 21:27 Dose: Not Given Methylprednisolone (Solu-Medrol) 10 mg IVP BID [facility] Last Admin: 02/20/19 09:20 Dose: 10 mg Metoprolol Tartrate (Lopressor) 2.5 mg IVP Q3 [facility] Last Admin: 02/20/19 11:20 Dose: Not Given Oxycodone HCl (Oxycodone Immediate Release Tab) 5 mg PO Q6 PRN PRN Reason: Pain, moderate (4-7) Sennosides (Senokot Tab) 17.2 mg PO HS [facility] Last Admin: 02/19/19 21:27 Dose: Not Given Sitagliptin Phosphate (Januvia) 25 mg PO DAILY [facility] Last Admin: 02/20/19 09:18 Dose: 25 mg Sucralfate (Carafate Oral Susp) 1 gm PO QID [facility] Last Admin: 02/20/19 09:15 Dose: 1 gm Tamsulosin HCl (Flomax) 0.4 mg PO DAILY [facility] Last Admin: 02/20/19 09:16 Dose: 0.4 mg - Labs Labs: 02/20/19 06:54 02/20/19 06:54 PT 12.8 Seconds (9.8-13.1) 02/14/19 10:00 INR 1.1 02/14/19 10:00 APTT 30.6 Seconds (25.6-37.1) 02/14/19 10:00 - Constitutional Appears: Non-toxic, No Acute Distress - Head Exam Head Exam: ATRAUMATIC, NORMOCEPHALIC - Eye Exam Eye Exam: Normal appearance - ENT Exam ENT Exam: Mucous Membranes Moist - Respiratory Exam Respiratory Exam: NORMAL BREATHING PATTERN - Cardiovascular Exam Cardiovascular Exam: REGULAR RHYTHM - GI/Abdominal Exam GI & Abdominal Exam: Soft - Back Exam Back Exam: absent: CVA tenderness (L), CVA tenderness (R) - Neurological Exam Neurological Exam: Alert, Awake, Oriented x3 - Psychiatric Exam Psychiatric exam: Normal Affect, Normal Mood - Skin Skin Exam: Warm Assessment and Plan - Assessment and Plan (Free Text) Assessment: 78 year old male with rectal stricture, POD#2 lap hand assist transverse colostomy Plan: - CLD - Pain control - Monitor colostomy output - Monitor jony output - Further recommendations as per Dr. Pino PGY1 <Jp Del Cid - Last Filed: 02/21/19 08:20> Objective - Vital Signs/Intake and Output Vital Signs (last 24 hours): Temp Pulse Resp BP Pulse Ox 97.6 F 93 H 18 105/67 94 L 02/21/19 07:50 02/21/19 07:50 02/21/19 07:50 02/21/19 07:50 02/21/19 07:50 - Medications Medications: Current Medications Acetaminophen (Tylenol 325mg Tab) 650 mg PO Q6 [facility] Last Admin: 02/21/19 05:36 Dose: 650 mg Atorvastatin Calcium (Lipitor) 40 mg PO DAILY [facility] Last Admin: 02/20/19 09:18 Dose: 40 mg Benzocaine/Menthol (Cepacol Sore Throat) 1 alysa PO Q3 PRN PRN Reason: Sore Throat Cyclobenzaprine HCl (Flexeril) 5 mg PO Q8 [facility] Last Admin: 02/21/19 00:52 Dose: Not Given Dextrose (Dextrose 50% Inj) 0 ml IV STAT PRN; Protocol PRN Reason: Hypoglycemia Protocol Last Admin: 02/06/19 05:35 Dose: 25 ml Dextrose (Glutose 15) 0 gm PO ONCE PRN; Protocol PRN Reason: Hypoglycemia Protocol Digoxin (Lanoxin) 0.125 mg IVP DAILY [facility] Last Admin: 02/20/19 09:25 Dose: 0.125 mg Dimethicone (Proshield Plus Skin Protectant) 1 applic TOP Q8 PRN PRN Reason: derm Last Admin: 02/14/19 09:50 Dose: 1 applic Ergocalciferol (Drisdol 50,000 Intl Units Cap) 1 cap PO FR [facility] Last Admin: 02/15/19 16:47 Dose: Not Given Fluticasone Propionate (Flonase) 2 spr PRIYA DAILY [facility] Last Admin: 02/20/19 09:17 Dose: 2 spr Glucagon (Glucagen Diagnostic Kit) 0 mg IM STAT PRN; Protocol PRN Reason: Hypoglycemia Protocol Hydromorphone HCl (Dilaudid) 1 mg IVP Q4 PRN PRN Reason: Pain, severe (8-10) Iron Sucrose 100 mg/ Sodium (Chloride) 105 mls @ 105 mls/hr IVPB DAILY [facility] Last Admin: 02/12/19 12:07 Dose: 105 mls/hr Insulin Human Regular (Humulin R) 0 units SC ACHS [facility]; Protocol Last Admin: 02/20/19 21:50 Dose: Not Given Lidocaine (Lidoderm) 1 ea TD DAILY [facility] Last Admin: 02/20/19 09:14 Dose: 1 ea Memantine (Namenda) 10 mg PO BID [facility] Last Admin: 02/20/19 17:05 Dose: 10 mg Mesalamine (Rowasa Enema) 4 gm RC HS [facility] Last Admin: 02/20/19 21:51 Dose: Not Given Methylprednisolone (Solu-Medrol) 10 mg IVP BID [facility] Last Admin: 02/20/19 17:06 Dose: 10 mg Metoprolol Tartrate (Lopressor) 2.5 mg IVP Q3 [facility] Last Admin: 02/21/19 05:00 Dose: 2.5 mg Oxycodone HCl (Oxycodone Immediate Release Tab) 5 mg PO Q6 PRN PRN Reason: Pain, moderate (4-7) Sennosides (Senokot Tab) 17.2 mg PO HS [facility] Last Admin: 02/20/19 21:51 Dose: Not Given Sitagliptin Phosphate (Januvia) 25 mg PO DAILY [facility] Last Admin: 02/20/19 09:18 Dose: 25 mg Sucralfate (Carafate Oral Susp) 1 gm PO QID [facility] Last Admin: 02/20/19 21:50 Dose: 1 gm Tamsulosin HCl (Flomax) 0.4 mg PO DAILY [facility] Last Admin: 02/20/19 09:16 Dose: 0.4 mg - Labs Labs: 02/21/19 06:16 02/21/19 06:16 PT 12.8 Seconds (9.8-13.1) 02/14/19 10:00 INR 1.1 02/14/19 10:00 APTT 30.6 Seconds (25.6-37.1) 02/14/19 10:00 Assessment and Plan - Assessment and Plan (Free Text) Plan: All medical record entries made by the resident were at my direction. I have reviewed the chart and agree that the record accurately reflects my personal performance of the history, physical exam, and medical decision making.
--- NOTE | 2019-02-20 13:53 | PN ---
DATE: 02/20/2019 ELECTROPHYSIOLOGY FOLLOWUP NOTE SUBJECTIVE: Mr. Rodri Loya was seen today in electrophysiology followup. Telemetry shows rate controlled atrial fibrillation. He has baseline dementia but no complaints at this point. He is status post colectomy and has a colostomy for rectosigmoid stricture. PHYSICAL EXAMINATION: VITAL SIGNS: Temperature is 97.7, pulse rate of 97, blood pressure is 111/95, mean arterial pressure is 80. GENERAL: He is a well-developed, well-nourished, male in no acute distress. Able to speak in complete sentences and appears to be appropriate. HEENT: Head is normocephalic, atraumatic. There is no reba facial asymmetry. CHEST: Clear to auscultation. CARDIOVASCULAR: Irregularly irregular rhythm. S1 and S2. No S3 or S4. ABDOMEN: Soft. Positive for colostomy. Normal bowel sounds. EXTREMITIES: No cyanosis, clubbing, or edema. CURRENT MEDICATIONS: Include atorvastatin 40 mg p.o. daily, cyclobenzaprine 5 mg p.o. every 8 hours, digoxin 0.125 mg IV push daily, ergocalciferol 50,000 one p.o. every week, metoprolol 2.5 mg IV every 3 hours. LABORATORY DATA: On review of relevant lab work, the patient has a white count of 14, H and H of 11.4 and 35.8, platelets of 170. Potassium 3.6, BUN and creatinine of 14 and 1.4. ALT and AST 22 and 33 respectively. ASSESSMENT AND PLAN: 1. Tachycardia secondary to atrial fibrillation with at times rapid ventricular response. The patient's heart rates appeared to be controlled on intravenous beta-blockers and intravenous digoxin, would transition to oral metoprolol 12.5 mg every 6 hours if and when tolerated from a postoperative standpoint and blood pressures will allow. The patient may be a candidate for long-term anticoagulation if and when cleared by Surgery. It is also unclear if the patient is a fall risk, given his history of dementia. Decision as far as risk and benefits will need to be made prior to being discharged. 2. Atrial fibrillation, managed as previously stated at this point. We will continue to pursue rate control, rhythm control may also be an option at some point. 3. History of cerebrovascular accident, again anticoagulation will be considered. 4. History of dementia. 5. Colitis, status post colectomy. 6. Premature ventricular contractions which at this point have not been clinically significant. Thank you for allowing me to participate in the care of your patient. Please do not hesitate to call if you have any questions in regards to his care. Marcos Rodriguez MD cc: DO Gatito Mar MD
[2019-02-20 15:48] LABS: CALCIUM 7.1 mg/dL (8.4-10.2)
--- NOTE | 2019-02-20 15:53 | CP.PCM.PCO ---
Addendum Addendum: 02/20/19 15:40 The clinical writer was called on this patient by RN as per request due to confusion. As per , pt looks more tired and confused. Pt is awake, alert, oriented to person and time; however, pt had difficulties answering where he was. Pt mentioned he could possibly be in [facility] in [facility] [place]. Pt knows where he is from and where he lives. Pt denies headache, dizziness, visual disturbances, chest pain, SOB, nausea, vomiting, paresthesias. >Vital signs: WNL. >PE: Pt is awake, alert, NAD, follows commands, able to answer questions. CV: S1 and S2 present, Lungs: CTAB. 78 y/o M with a PMHx of Ulcerative colitis, HTN, Bladder Ca, Dementia, prediabetes and CVA presented acute change in mental status. Possibly delirium, worsening dementia. --Head CT ordered. --Will review repeat BMP. --Monitor vital signs and mental status. --Considering neurology consult if worsening mental status or abnormal Head CT.
--- NOTE | 2019-02-20 16:39 | CP.PCM.PN ---
Subjective - Date & Time of Evaluation Time of Evaluation: 16:36 - Subjective Subjective: Appears comfortable Objective - Vital Signs/Intake and Output Vital Signs (last 24 hours): Temp Pulse Resp BP Pulse Ox 97.6 F 82 18 117/75 95 02/20/19 16:14 02/20/19 16:14 02/20/19 16:14 02/20/19 16:14 02/20/19 16:14 - Medications Medications: Current Medications Acetaminophen (Tylenol 325mg Tab) 650 mg PO Q6 [facility] Last Admin: 02/20/19 11:19 Dose: 650 mg Atorvastatin Calcium (Lipitor) 40 mg PO DAILY [facility] Last Admin: 02/20/19 09:18 Dose: 40 mg Benzocaine/Menthol (Cepacol Sore Throat) 1 alyas PO Q3 PRN PRN Reason: Sore Throat Cyclobenzaprine HCl (Flexeril) 5 mg PO Q8 [facility] Last Admin: 02/20/19 09:16 Dose: 5 mg Dextrose (Dextrose 50% Inj) 0 ml IV STAT PRN; Protocol PRN Reason: Hypoglycemia Protocol Last Admin: 02/06/19 05:35 Dose: 25 ml Dextrose (Glutose 15) 0 gm PO ONCE PRN; Protocol PRN Reason: Hypoglycemia Protocol Digoxin (Lanoxin) 0.125 mg IVP DAILY [facility] Last Admin: 02/20/19 09:25 Dose: 0.125 mg Dimethicone (Proshield Plus Skin Protectant) 1 applic TOP Q8 PRN PRN Reason: derm Last Admin: 02/14/19 09:50 Dose: 1 applic Ergocalciferol (Drisdol 50,000 Intl Units Cap) 1 cap PO FR [facility] Last Admin: 02/15/19 16:47 Dose: Not Given Fluticasone Propionate (Flonase) 2 spr PRIYA DAILY [facility] Last Admin: 02/20/19 09:17 Dose: 2 spr Glucagon (Glucagen Diagnostic Kit) 0 mg IM STAT PRN; Protocol PRN Reason: Hypoglycemia Protocol Hydromorphone HCl (Dilaudid) 1 mg IVP Q4 PRN PRN Reason: Pain, severe (8-10) Iron Sucrose 100 mg/ Sodium (Chloride) 105 mls @ 105 mls/hr IVPB DAILY [facility] Last Admin: 02/12/19 12:07 Dose: 105 mls/hr Insulin Human Regular (Humulin R) 0 units SC ACHS [facility]; Protocol Last Admin: 02/20/19 13:05 Dose: Not Given Lidocaine (Lidoderm) 1 ea TD DAILY [facility] Last Admin: 02/20/19 09:14 Dose: 1 ea Memantine (Namenda) 10 mg PO BID [facility] Last Admin: 02/20/19 09:19 Dose: 10 mg Mesalamine (Rowasa Enema) 4 gm RC HS [facility] Last Admin: 02/19/19 21:27 Dose: Not Given Methylprednisolone (Solu-Medrol) 10 mg IVP BID [facility] Last Admin: 02/20/19 09:20 Dose: 10 mg Metoprolol Tartrate (Lopressor) 2.5 mg IVP Q3 [facility] Last Admin: 02/20/19 14:03 Dose: 2.5 mg Oxycodone HCl (Oxycodone Immediate Release Tab) 5 mg PO Q6 PRN PRN Reason: Pain, moderate (4-7) Potassium Chloride (Potassium Chloride Oral Soln) 20 meq PO ONCE ONE Stop: 02/20/19 18:01 Sennosides (Senokot Tab) 17.2 mg PO HS [facility] Last Admin: 02/19/19 21:27 Dose: Not Given Sitagliptin Phosphate (Januvia) 25 mg PO DAILY [facility] Last Admin: 02/20/19 09:18 Dose: 25 mg Sucralfate (Carafate Oral Susp) 1 gm PO QID [facility] Last Admin: 02/20/19 14:01 Dose: 1 gm Tamsulosin HCl (Flomax) 0.4 mg PO DAILY [facility] Last Admin: 02/20/19 09:16 Dose: 0.4 mg - Labs Labs: 02/20/19 06:54 02/20/19 14:55 PT 12.8 Seconds (9.8-13.1) 02/14/19 10:00 INR 1.1 02/14/19 10:00 APTT 30.6 Seconds (25.6-37.1) 02/14/19 10:00 - Head Exam Head Exam: ATRAUMATIC - Eye Exam Eye Exam: Normal appearance - ENT Exam ENT Exam: Mucous Membranes Dry - Neck Exam Neck Exam: Normal Inspection Assessment and Plan (1) Colonic stricture Status: Acute (2) GI bleed Status: Resolved
[2019-02-21] MEDS: Metoprolol 1 mg/ml Inj IVP SCH ×9 (00:52→21:31)
[2019-02-21 06:43] LABS: HEMOGLOBIN 9.3 g/dL (12.0-18.0); MEAN CELL VOLUME 83.8 fl (80.0-94.0); MEAN CORPUSCULAR HEMOGLOBIN 26.7 pg (27.0-31.0); MEAN CORPUSCULAR HGB CONC 31.9 g/dL (33.0-37.0); RBC 3.46 Mil/uL (4.40-5.90); RED CELL DISTRIBUTION WIDTH 21.9 % (11.5-14.5); WHITE BLOOD COUNT 9.5 K/uL (4.8-10.8)
[2019-02-21 07:02] LABS: ALB/GLOB RATIO 0.7 (1.0-2.1); ALBUMIN 1.7 g/dL (3.5-5.0); CALCIUM 6.3 mg/dL (8.4-10.2)
--- NOTE | 2019-02-21 07:14 | CP.PCM.PN ---
<Santos Hendricks - Last Filed: 02/21/19 10:14> Subjective - Date & Time of Evaluation Date of Evaluation: 02/21/19 Time of Evaluation: 07:12 - Subjective Subjective: Surgery Progress Note- Dr. Rivera Patient seen and examined. Liquid stool and seroussang drainage from colostomy. Colostomy pink and patent. Minimal abd pain. Tolerating CLD. Denies f/c/CP/SOB Objective - Vital Signs/Intake and Output Vital Signs (last 24 hours): Temp Pulse Resp BP Pulse Ox 97.9 F 103 H 18 116/71 96 02/21/19 04:36 02/21/19 05:00 02/21/19 04:36 02/21/19 05:00 02/21/19 04:36 - Medications Medications: Current Medications Acetaminophen (Tylenol 325mg Tab) 650 mg PO Q6 [facility] Last Admin: 02/21/19 05:36 Dose: 650 mg Atorvastatin Calcium (Lipitor) 40 mg PO DAILY [facility] Last Admin: 02/20/19 09:18 Dose: 40 mg Benzocaine/Menthol (Cepacol Sore Throat) 1 alysa PO Q3 PRN PRN Reason: Sore Throat Cyclobenzaprine HCl (Flexeril) 5 mg PO Q8 [facility] Last Admin: 02/21/19 00:52 Dose: Not Given Dextrose (Dextrose 50% Inj) 0 ml IV STAT PRN; Protocol PRN Reason: Hypoglycemia Protocol Last Admin: 02/06/19 05:35 Dose: 25 ml Dextrose (Glutose 15) 0 gm PO ONCE PRN; Protocol PRN Reason: Hypoglycemia Protocol Digoxin (Lanoxin) 0.125 mg IVP DAILY [facility] Last Admin: 02/20/19 09:25 Dose: 0.125 mg Dimethicone (Proshield Plus Skin Protectant) 1 applic TOP Q8 PRN PRN Reason: derm Last Admin: 02/14/19 09:50 Dose: 1 applic Ergocalciferol (Drisdol 50,000 Intl Units Cap) 1 cap PO FR [facility] Last Admin: 02/15/19 16:47 Dose: Not Given Fluticasone Propionate (Flonase) 2 spr PRIYA DAILY [facility] Last Admin: 02/20/19 09:17 Dose: 2 spr Glucagon (Glucagen Diagnostic Kit) 0 mg IM STAT PRN; Protocol PRN Reason: Hypoglycemia Protocol Hydromorphone HCl (Dilaudid) 1 mg IVP Q4 PRN PRN Reason: Pain, severe (8-10) Iron Sucrose 100 mg/ Sodium (Chloride) 105 mls @ 105 mls/hr IVPB DAILY [facility] Last Admin: 02/12/19 12:07 Dose: 105 mls/hr Insulin Human Regular (Humulin R) 0 units SC ACHS [facility]; Protocol Last Admin: 02/20/19 21:50 Dose: Not Given Lidocaine (Lidoderm) 1 ea TD DAILY [facility] Last Admin: 02/20/19 09:14 Dose: 1 ea Memantine (Namenda) 10 mg PO BID [facility] Last Admin: 02/20/19 17:05 Dose: 10 mg Mesalamine (Rowasa Enema) 4 gm RC HS [facility] Last Admin: 02/20/19 21:51 Dose: Not Given Methylprednisolone (Solu-Medrol) 10 mg IVP BID [facility] Last Admin: 02/20/19 17:06 Dose: 10 mg Metoprolol Tartrate (Lopressor) 2.5 mg IVP Q3 [facility] Last Admin: 02/21/19 05:00 Dose: 2.5 mg Oxycodone HCl (Oxycodone Immediate Release Tab) 5 mg PO Q6 PRN PRN Reason: Pain, moderate (4-7) Sennosides (Senokot Tab) 17.2 mg PO HS [facility] Last Admin: 02/20/19 21:51 Dose: Not Given Sitagliptin Phosphate (Januvia) 25 mg PO DAILY [facility] Last Admin: 02/20/19 09:18 Dose: 25 mg Sucralfate (Carafate Oral Susp) 1 gm PO QID [facility] Last Admin: 02/20/19 21:50 Dose: 1 gm Tamsulosin HCl (Flomax) 0.4 mg PO DAILY [facility] Last Admin: 02/20/19 09:16 Dose: 0.4 mg - Labs Labs: 02/21/19 06:16 02/21/19 06:16 PT 12.8 Seconds (9.8-13.1) 02/14/19 10:00 INR 1.1 02/14/19 10:00 APTT 30.6 Seconds (25.6-37.1) 02/14/19 10:00 - Constitutional Appears: Non-toxic, No Acute Distress, Chronically Ill - Eye Exam Eye Exam: EOMI. absent: Scleral icterus - ENT Exam ENT Exam: Mucous Membranes Moist - Respiratory Exam Respiratory Exam: NORMAL BREATHING PATTERN. absent: Accessory Muscle Use, Respiratory Distress - Cardiovascular Exam Cardiovascular Exam: REGULAR RHYTHM. absent: Bradycardia, Tachycardia - GI/Abdominal Exam GI & Abdominal Exam: Distended, Soft, Tenderness. absent: Firm, Guarding, Rigid Additional comments: Colostomy w/ liquid output serosang and liquid stool. Assessment and Plan - Assessment and Plan (Free Text) Assessment: 78 year old male with rectal stricture, POD#3 lap hand assist transverse colostomy Plan: - Proper sleep wake cycles during hospital stay - advance diet as tolerated - Pain control - Monitor colostomy output - replete lytes PRN - Further recommendations as per Dr. Avila PGY2 <Jp Del Cid - Last Filed: 02/23/19 14:04> Objective - Vital Signs/Intake and Output Vital Signs (last 24 hours): Temp Pulse Resp BP Pulse Ox 97.8 F 130 H 20 112/57 L 98 02/23/19 13:00 02/23/19 13:00 02/23/19 13:00 02/23/19 13:00 02/23/19 13:00 Intake and Output: 02/23/19 02/23/19 06:59 18:59 Intake Total 650 Output Total 600 Balance 50 - Medications Medications: Current Medications Acetaminophen (Tylenol 325mg Tab) 650 mg PO Q6 [facility] Last Admin: 02/23/19 09:08 Dose: 650 mg Atorvastatin Calcium (Lipitor) 40 mg PO DAILY [facility] Last Admin: 02/23/19 08:49 Dose: 40 mg Benzocaine/Menthol (Cepacol Sore Throat) 1 alysa PO Q3 PRN PRN Reason: Sore Throat Cyclobenzaprine HCl (Flexeril) 5 mg PO Q8 [facility] Last Admin: 02/21/19 00:52 Dose: Not Given Dextrose (Dextrose 50% Inj) 0 ml IV STAT PRN; Protocol PRN Reason: Hypoglycemia Protocol Last Admin: 02/06/19 05:35 Dose: 25 ml Dextrose (Glutose 15) 0 gm PO ONCE PRN; Protocol PRN Reason: Hypoglycemia Protocol Digoxin (Lanoxin) 0.125 mg IVP DAILY [facility] Last Admin: 02/23/19 08:43 Dose: 0.125 mg Dimethicone (Proshield Plus Skin Protectant) 1 applic TOP Q8 PRN PRN Reason: derm Last Admin: 02/14/19 09:50 Dose: 1 applic Ergocalciferol (Drisdol 50,000 Intl Units Cap) 1 cap PO FR [facility] Last Admin: 02/22/19 16:04 Dose: 1 cap Fluticasone Propionate (Flonase) 2 spr PRIYA DAILY [facility] Last Admin: 02/23/19 08:57 Dose: 2 spr Glucagon (Glucagen Diagnostic Kit) 0 mg IM STAT PRN; Protocol PRN Reason: Hypoglycemia Protocol Hydromorphone HCl (Dilaudid) 1 mg IVP Q4 PRN PRN Reason: Pain, severe (8-10) Last Admin: 02/23/19 00:55 Dose: 1 mg Iron Sucrose 100 mg/ Sodium (Chloride) 105 mls @ 105 mls/hr IVPB DAILY [facility] Last Admin: 02/12/19 12:07 Dose: 105 mls/hr Dextrose/Sodium Chloride (Dextrose 5%/0.9% Ns 1000 Ml) 1,000 mls @ 100 mls/hr IV .Q10H [facility] Stop: 02/24/19 13:40 Insulin Human Regular (Humulin R) 0 units SC ACHS [facility]; Protocol Last Admin: 02/23/19 12:55 Dose: Not Given Lidocaine (Lidoderm) 1 ea TD DAILY [facility] Last Admin: 02/23/19 08:48 Dose: 1 ea Memantine (Namenda) 10 mg PO BID [facility] Last Admin: 02/23/19 08:50 Dose: 10 mg Mesalamine (Rowasa Enema) 4 gm RC HS [facility] Last Admin: 02/22/19 21:22 Dose: Not Given Methylprednisolone (Solu-Medrol) 10 mg IVP BID [facility] Last Admin: 02/23/19 08:53 Dose: 10 mg Metoprolol Tartrate (Lopressor) 2.5 mg IVP Q3 [facility] Last Admin: 02/23/19 12:56 Dose: 2.5 mg Ondansetron HCl (Zofran Inj) 4 mg IVP Q4 PRN PRN Reason: Nausea/Vomiting Last Admin: 02/22/19 15:57 Dose: 4 mg Oxycodone HCl (Oxycodone Immediate Release Tab) 5 mg PO Q6 PRN PRN Reason: Pain, moderate (4-7) Sennosides (Senokot Tab) 17.2 mg PO HS [facility] Last Admin: 02/22/19 21:22 Dose: Not Given Sitagliptin Phosphate (Januvia) 25 mg PO DAILY [facility] Last Admin: 02/23/19 08:58 Dose: 25 mg Sucralfate (Carafate Oral Susp) 1 gm PO QID [facility] Last Admin: 02/23/19 12:55 Dose: 1 gm Tamsulosin HCl (Flomax) 0.4 mg PO DAILY [facility] Last Admin: 02/23/19 08:57 Dose: 0.4 mg - Labs Labs: 02/23/19 04:25 02/23/19 04:25 PT 12.8 Seconds (9.8-13.1) 02/14/19 10:00 INR 1.1 02/14/19 10:00 APTT 30.6 Seconds (25.6-37.1) 02/14/19 10:00 Assessment and Plan - Assessment and Plan (Free Text) Plan: All medical record entries made by the resident were at my direction. I have reviewed the chart and agree that the record accurately reflects my personal performance of the history, physical exam, and medical decision making.
[2019-02-21] MEDS ORDERED: Potassium Chloride 20 mEq/15 ml LIQ UD PO ONE (07:32)
--- NOTE | 2019-02-21 07:40 | CP.PCM.PN ---
<Yrn Moncada - Last Filed: 02/21/19 08:49> Subjective - Date & Time of Evaluation Date of Evaluation: 02/21/19 Time of Evaluation: 06:50 - Subjective Subjective: 78 y/o M was seen and examined by bedside with Dr Mathew. Pt is POD 3, awake and alert, oriented x3 and follows commands. Pt responds to tactile and verbal stimuli, reports feeling OK, pain is still present. Colostomy bag present with liquid stool volume. Pt afebrile with NO acute events overnight. Objective - Vital Signs/Intake and Output Vital Signs (last 24 hours): Temp Pulse Resp BP Pulse Ox 97.9 F 103 H 18 116/71 96 02/21/19 04:36 02/21/19 05:00 02/21/19 04:36 02/21/19 05:00 02/21/19 04:36 - Medications Medications: Current Medications Acetaminophen (Tylenol 325mg Tab) 650 mg PO Q6 [facility] Last Admin: 02/21/19 05:36 Dose: 650 mg Atorvastatin Calcium (Lipitor) 40 mg PO DAILY [facility] Last Admin: 02/20/19 09:18 Dose: 40 mg Benzocaine/Menthol (Cepacol Sore Throat) 1 alysa PO Q3 PRN PRN Reason: Sore Throat Cyclobenzaprine HCl (Flexeril) 5 mg PO Q8 [facility] Last Admin: 02/21/19 00:52 Dose: Not Given Dextrose (Dextrose 50% Inj) 0 ml IV STAT PRN; Protocol PRN Reason: Hypoglycemia Protocol Last Admin: 02/06/19 05:35 Dose: 25 ml Dextrose (Glutose 15) 0 gm PO ONCE PRN; Protocol PRN Reason: Hypoglycemia Protocol Digoxin (Lanoxin) 0.125 mg IVP DAILY [facility] Last Admin: 02/20/19 09:25 Dose: 0.125 mg Dimethicone (Proshield Plus Skin Protectant) 1 applic TOP Q8 PRN PRN Reason: derm Last Admin: 02/14/19 09:50 Dose: 1 applic Ergocalciferol (Drisdol 50,000 Intl Units Cap) 1 cap PO FR [facility] Last Admin: 02/15/19 16:47 Dose: Not Given Fluticasone Propionate (Flonase) 2 spr PRIYA DAILY [facility] Last Admin: 02/20/19 09:17 Dose: 2 spr Glucagon (Glucagen Diagnostic Kit) 0 mg IM STAT PRN; Protocol PRN Reason: Hypoglycemia Protocol Hydromorphone HCl (Dilaudid) 1 mg IVP Q4 PRN PRN Reason: Pain, severe (8-10) Iron Sucrose 100 mg/ Sodium (Chloride) 105 mls @ 105 mls/hr IVPB DAILY [facility] Last Admin: 02/12/19 12:07 Dose: 105 mls/hr Insulin Human Regular (Humulin R) 0 units SC ACHS [facility]; Protocol Last Admin: 02/20/19 21:50 Dose: Not Given Lidocaine (Lidoderm) 1 ea TD DAILY [facility] Last Admin: 02/20/19 09:14 Dose: 1 ea Memantine (Namenda) 10 mg PO BID [facility] Last Admin: 02/20/19 17:05 Dose: 10 mg Mesalamine (Rowasa Enema) 4 gm RC HS [facility] Last Admin: 02/20/19 21:51 Dose: Not Given Methylprednisolone (Solu-Medrol) 10 mg IVP BID [facility] Last Admin: 02/20/19 17:06 Dose: 10 mg Metoprolol Tartrate (Lopressor) 2.5 mg IVP Q3 [facility] Last Admin: 02/21/19 05:00 Dose: 2.5 mg Oxycodone HCl (Oxycodone Immediate Release Tab) 5 mg PO Q6 PRN PRN Reason: Pain, moderate (4-7) Sennosides (Senokot Tab) 17.2 mg PO HS [facility] Last Admin: 02/20/19 21:51 Dose: Not Given Sitagliptin Phosphate (Januvia) 25 mg PO DAILY [facility] Last Admin: 02/20/19 09:18 Dose: 25 mg Sucralfate (Carafate Oral Susp) 1 gm PO QID [facility] Last Admin: 02/20/19 21:50 Dose: 1 gm Tamsulosin HCl (Flomax) 0.4 mg PO DAILY [facility] Last Admin: 02/20/19 09:16 Dose: 0.4 mg - Labs Labs: 02/21/19 06:16 02/21/19 06:16 PT 12.8 Seconds (9.8-13.1) 02/14/19 10:00 INR 1.1 02/14/19 10:00 APTT 30.6 Seconds (25.6-37.1) 04/11/19 10:00 - Constitutional Appears: Well, No Acute Distress - Head Exam Head Exam: ATRAUMATIC, NORMAL INSPECTION - Eye Exam Eye Exam: EOMI, PERRL - ENT Exam ENT Exam: Mucous Membranes Moist - Neck Exam Neck Exam: Full ROM, Normal Inspection. absent: Meningismus - Respiratory Exam Respiratory Exam: NORMAL BREATHING PATTERN. absent: Rales, Rhonchi, Wheezes, Respiratory Distress - Cardiovascular Exam Cardiovascular Exam: Irregular Rhythm, +S1, +S2 - GI/Abdominal Exam GI & Abdominal Exam: Soft, Normal Bowel Sounds. absent: Guarding, Rigid, Tenderness, Rebound Additional comments: Transverse colostomy patent, bag with light brown liquid stools. - Extremities Exam Extremities Exam: Full ROM. absent: Calf Tenderness, Pedal Edema - Neurological Exam Neurological Exam: Alert, Awake, CN II-XII Intact, Oriented x3 Neuro motor strength exam: Left Upper Extremity: 5, Right Upper Extremity: 5, Left Lower Extremity: 5, Right Lower Extremity: 5 Assessment and Plan (1) Colonic stricture Status: Acute (2) Dementia Status: Chronic (3) CKD (chronic kidney disease) Status: Chronic (4) Diabetes Status: Chronic (5) Gait instability Status: Chronic (6) New onset a-fib Status: Acute (7) Ulcerative colitis, chronic Status: Chronic - Assessment and Plan (Free Text) Assessment: 78 y/o male with PMH of Ulcerative colitis, HTN, Bladder Ca, Dementia, prediabetes and CVA in 2007 recently admitted to [facility] for evaluation and management of GI bleeding, colonic stricture and anemia. PLAN: >Colonic stricture --POD#3, afebrile, recovering well. --S/P lap hand assist transverse colostomy . --Gen Surgery on tamra, Dr Del Cid. --GI on board, Dr Abdul. --Continue pain management as ordered. >Acute Kidney Injury on CKD, Stage 1 --Creatinine increasing, likely dehydration due to poor PO intake. --Will initiate IV fluids: D5-1/2NS-20mEq KCl. --Nephrology on board, Dr. Boone. --Monitor urine output. >Hypokalemia --Serum K+ 3.4. --Likely electrolyte loss from watery stools. --PO KCL ordered. --Magnesium is WNL. --IV fluids initiated. 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 --Ulcerative Colitis under treatment. --Serum Ca+ 6.3 --Calculated corrected Ca++ 8.1 - WNL. >Ulcerative Colitis --Chronic --GI on board, Dr Abdul --On Methyl-prednisolone --Colonoscopy when stable as per GI. --C/w home med: Mesalamine >Normocytic Anemia, --Chronic, likely due to GI bleeding. S/p PRBC x 4 units transfused. --Hgb 9.3 - stable but trending down. --Monitor CBC and for possible bleeding. >Afib --New onset this admission --Continuous cardiac monitoring. --Rate control: IV Metoprolol 2.5mg Q3H and IV digoxin 0.125mg daily --Cardiology on board, Dr. Potts. --Considering Watchman procedure >HTN --Chronic, controlled --Monitor vitals >DM2 --Chronic, controlled as last HbA1c 6.1 on 01/16/19. --C/w home meds --ISS and hypoglycemia protocol in place >Gait instability --PT/OT eval/treat --Fall precautions >DVT/wound prophylaxis --SCD's (recent active GI bleed) --C/w Louise Case discussed with Dr Mathew. Coral PGY-2 <Gatito Mathew - Last Filed: 02/23/19 15:15> Objective - Vital Signs/Intake and Output Vital Signs (last 24 hours): Temp Pulse Resp BP Pulse Ox 97.8 F 130 H 20 112/57 L 98 02/23/19 13:00 02/23/19 13:00 02/23/19 13:00 02/23/19 13:00 02/23/19 13:00 Intake and Output: 02/23/19 02/23/19 11:59 23:59 Intake Total 650 Output Total 600 Balance 50 - Medications Medications: Current Medications Acetaminophen (Tylenol 325mg Tab) 650 mg PO Q6 [facility] Last Admin: 02/23/19 09:08 Dose: 650 mg Atorvastatin Calcium (Lipitor) 40 mg PO DAILY [facility] Last Admin: 02/23/19 08:49 Dose: 40 mg Benzocaine/Menthol (Cepacol Sore Throat) 1 alysa PO Q3 PRN PRN Reason: Sore Throat Cyclobenzaprine HCl (Flexeril) 5 mg PO Q8 [facility] Last Admin: 02/21/19 00:52 Dose: Not Given Dextrose (Dextrose 50% Inj) 0 ml IV STAT PRN; Protocol PRN Reason: Hypoglycemia Protocol Last Admin: 02/06/19 05:35 Dose: 25 ml Dextrose (Glutose 15) 0 gm PO ONCE PRN; Protocol PRN Reason: Hypoglycemia Protocol Digoxin (Lanoxin) 0.125 mg IVP DAILY [facility] Last Admin: 02/23/19 08:43 Dose: 0.125 mg Dimethicone (Proshield Plus Skin Protectant) 1 applic TOP Q8 PRN PRN Reason: derm Last Admin: 02/14/19 09:50 Dose: 1 applic Ergocalciferol (Drisdol 50,000 Intl Units Cap) 1 cap PO FR [facility] Last Admin: 02/22/19 16:04 Dose: 1 cap Fluticasone Propionate (Flonase) 2 spr PRIYA DAILY [facility] Last Admin: 02/23/19 08:57 Dose: 2 spr Glucagon (Glucagen Diagnostic Kit) 0 mg IM STAT PRN; Protocol PRN Reason: Hypoglycemia Protocol Hydromorphone HCl (Dilaudid) 1 mg IVP Q4 PRN PRN Reason: Pain, severe (8-10) Last Admin: 02/23/19 00:55 Dose: 1 mg Iron Sucrose 100 mg/ Sodium (Chloride) 105 mls @ 105 mls/hr IVPB DAILY [facility] Last Admin: 02/12/19 12:07 Dose: 105 mls/hr Dextrose/Sodium Chloride (Dextrose 5%/0.9% Ns 1000 Ml) 1,000 mls @ 100 mls/hr IV .Q10H [facility] Stop: 02/24/19 13:40 Insulin Human Regular (Humulin R) 0 units SC ACHS [facility]; Protocol Last Admin: 02/23/19 12:55 Dose: Not Given Lidocaine (Lidoderm) 1 ea TD DAILY [facility] Last Admin: 02/23/19 08:48 Dose: 1 ea Memantine (Namenda) 10 mg PO BID [facility] Last Admin: 02/23/19 08:50 Dose: 10 mg Mesalamine (Rowasa Enema) 4 gm RC HS [facility] Last Admin: 02/22/19 21:22 Dose: Not Given Methylprednisolone (Solu-Medrol) 10 mg IVP BID [facility] Last Admin: 02/23/19 08:53 Dose: 10 mg Metoprolol Tartrate (Lopressor) 2.5 mg IVP Q3 [facility] Last Admin: 02/23/19 12:56 Dose: 2.5 mg Ondansetron HCl (Zofran Inj) 4 mg IVP Q4 PRN PRN Reason: Nausea/Vomiting Last Admin: 02/22/19 15:57 Dose: 4 mg Oxycodone HCl (Oxycodone Immediate Release Tab) 5 mg PO Q6 PRN PRN Reason: Pain, moderate (4-7) Sennosides (Senokot Tab) 17.2 mg PO HS [facility] Last Admin: 02/22/19 21:22 Dose: Not Given Sitagliptin Phosphate (Januvia) 25 mg PO DAILY [facility] Last Admin: 02/23/19 08:58 Dose: 25 mg Sucralfate (Carafate Oral Susp) 1 gm PO QID [facility] Last Admin: 02/23/19 12:55 Dose: 1 gm Tamsulosin HCl (Flomax) 0.4 mg PO DAILY [facility] Last Admin: 02/23/19 08:57 Dose: 0.4 mg - Labs Labs: 02/23/19 04:25 02/23/19 04:25 PT 12.8 Seconds (9.8-13.1) 02/14/19 10:00 INR 1.1 02/14/19 10:00 APTT 30.6 Seconds (25.6-37.1) 02/14/19 10:00 Assessment and Plan - Assessment and Plan (Free Text) Assessment: Patient was personally seen and examined by me in rounds with residents. Available labs and diagnostic data reviewed. Case, Patient's condition and management plan discussed with residents in rounds. Agree with resident's progress note. Plan: As ordered.
[2019-02-21] MEDS: Sucralfate 1 gm/10 ml Oral Susp UD PO SCH ×4 (08:59→21:30)
[2019-02-21] MEDS: Digoxin 500 mcg/2ml (0.5 mg/2ml) Inj IVP SCH (09:00)
[2019-02-21] MEDS: Lidocaine 5% Patch TD SCH (09:00)
[2019-02-21] MEDS: MethylPREDNISolone 40 mg Vial IVP SCH ×2 (09:01→18:05)
[2019-02-21] MEDS: Insulin Regular 100 units/ml SC SCH ×4 (09:04→21:30)
[2019-02-21] MEDS: Potassium Ch 20mEq in D5-1/2NS 1,000 ML IV SCH (10:14)
[2019-02-21] MEDS ORDERED: Sodium Chloride 0.9% 500 ML IV ONE ×2 (10:57→14:21)
[2019-02-21] MEDS ORDERED: FLUTICASONE PROPION/SALMETEROL 113-14 IH ONE (11:51)
[2019-02-21] MEDS ORDERED: FLUTICASONE PROPION/SALMETEROL 55-14 INHALER ONE (11:51)
[2019-02-21] MEDS ORDERED: FLUTICASONE PROPION/SALMETEROL 232-14 INHALER ONE (11:51)
--- NOTE | 2019-02-21 14:29 | CP.PCM.PN ---
Subjective - Date & Time of Evaluation Date of Evaluation: 02/21/19 Time of Evaluation: 02:00 - Subjective Subjective: Appears weak but no acute distress Objective - Vital Signs/Intake and Output Vital Signs (last 24 hours): Temp Pulse Resp BP Pulse Ox 98.0 F 71 18 100/65 97 02/21/19 13:17 02/21/19 13:13 02/21/19 11:46 02/21/19 13:13 02/21/19 11:46 - Medications Medications: Current Medications Acetaminophen (Tylenol 325mg Tab) 650 mg PO Q6 [facility] Last Admin: 02/21/19 13:17 Dose: 650 mg Atorvastatin Calcium (Lipitor) 40 mg PO DAILY [facility] Last Admin: 02/21/19 09:02 Dose: 40 mg Benzocaine/Menthol (Cepacol Sore Throat) 1 alysa PO Q3 PRN PRN Reason: Sore Throat Cyclobenzaprine HCl (Flexeril) 5 mg PO Q8 [facility] Last Admin: 02/21/19 00:52 Dose: Not Given Dextrose (Dextrose 50% Inj) 0 ml IV STAT PRN; Protocol PRN Reason: Hypoglycemia Protocol Last Admin: 02/06/19 05:35 Dose: 25 ml Dextrose (Glutose 15) 0 gm PO ONCE PRN; Protocol PRN Reason: Hypoglycemia Protocol Digoxin (Lanoxin) 0.125 mg IVP DAILY [facility] Last Admin: 02/21/19 09:00 Dose: 0.125 mg Dimethicone (Proshield Plus Skin Protectant) 1 applic TOP Q8 PRN PRN Reason: derm Last Admin: 02/14/19 09:50 Dose: 1 applic Ergocalciferol (Drisdol 50,000 Intl Units Cap) 1 cap PO FR [facility] Last Admin: 02/15/19 16:47 Dose: Not Given Fluticasone Propionate (Flonase) 2 spr PRIYA DAILY [facility] Last Admin: 02/21/19 08:59 Dose: 2 spr Glucagon (Glucagen Diagnostic Kit) 0 mg IM STAT PRN; Protocol PRN Reason: Hypoglycemia Protocol Hydromorphone HCl (Dilaudid) 1 mg IVP Q4 PRN PRN Reason: Pain, severe (8-10) Iron Sucrose 100 mg/ Sodium (Chloride) 105 mls @ 105 mls/hr IVPB DAILY [facility] Last Admin: 02/12/19 12:07 Dose: 105 mls/hr Potassium Chloride/Dextrose/Sod Cl (Potassium Chl 20 Meq In D5-1/2ns) 1,000 mls @ 110 mls/hr IV .Q9H6M [facility] Stop: 02/22/19 09:03 Last Admin: 02/21/19 10:14 Dose: 110 mls/hr Sodium Chloride (Sodium Chloride 0.9%) 500 mls @ 500 mls/hr IV .Q1H [facility] Stop: 02/21/19 15:20 Insulin Human Regular (Humulin R) 0 units SC [facility]; Protocol Last Admin: 02/21/19 10:54 Dose: Not Given Lidocaine (Lidoderm) 1 ea TD DAILY [facility] Last Admin: 02/21/19 09:00 Dose: 1 ea Memantine (Namenda) 10 mg PO BID [facility] Last Admin: 02/21/19 09:00 Dose: 10 mg Mesalamine (Rowasa Enema) 4 gm RC HS [facility] Last Admin: 02/20/19 21:51 Dose: Not Given Methylprednisolone (Solu-Medrol) 10 mg IVP BID [facility] Last Admin: 02/21/19 09:01 Dose: 10 mg Metoprolol Tartrate (Lopressor) 2.5 mg IVP Q3 [facility] Last Admin: 02/21/19 13:13 Dose: Not Given Oxycodone HCl (Oxycodone Immediate Release Tab) 5 mg PO Q6 PRN PRN Reason: Pain, moderate (4-7) Sennosides (Senokot Tab) 17.2 mg PO HS [facility] Last Admin: 02/20/19 21:51 Dose: Not Given Sitagliptin Phosphate (Januvia) 25 mg PO DAILY [facility] Last Admin: 02/21/19 09:00 Dose: 25 mg Sucralfate (Carafate Oral Susp) 1 gm PO QID [facility] Last Admin: 02/21/19 13:19 Dose: 1 gm Tamsulosin HCl (Flomax) 0.4 mg PO DAILY [facility] Last Admin: 02/21/19 09:01 Dose: 0.4 mg - Labs Labs: 02/21/19 06:16 02/21/19 06:16 PT 12.8 Seconds (9.8-13.1) 02/14/19 10:00 INR 1.1 02/14/19 10:00 APTT 30.6 Seconds (25.6-37.1) 02/14/19 10:00 - Constitutional Appears: Non-toxic - Head Exam Head Exam: ATRAUMATIC, NORMOCEPHALIC - Eye Exam Eye Exam: Normal appearance - ENT Exam ENT Exam: Mucous Membranes Moist - Neck Exam Additional comments: supple - Respiratory Exam Respiratory Exam: NORMAL BREATHING PATTERN Additional comments: Lungs clear - Cardiovascular Exam Additional comments: A.fib 88/min - GI/Abdominal Exam GI & Abdominal Exam: Soft - Extremities Exam Additional comments: No edema Assessment and Plan - Assessment and Plan (Free Text) Assessment: Renal function is stable . Creat. is near his baseline. The creat level of 1.2 previously was probably dilutional due to IVFs. S/P lap transverse colostomy GI bleed Atrial fibrillation, new onset Plan: Continue to monitor renal function Monitor BP, Avoid hypotension
[2019-02-22] MEDS: Metoprolol 1 mg/ml Inj IVP SCH ×11 (00:56→21:20)
[2019-02-22] MEDS: Potassium Ch 20mEq in D5-1/2NS 1,000 ML IV SCH (03:12)
[2019-02-22 05:19] LABS: HEMOGLOBIN 10.4 g/dL (12.0-18.0); MEAN CELL VOLUME 83.6 fl (80.0-94.0); MEAN CORPUSCULAR HEMOGLOBIN 26.4 pg (27.0-31.0); MEAN CORPUSCULAR HGB CONC 31.6 g/dL (33.0-37.0); RBC 3.94 Mil/uL (4.40-5.90); RED CELL DISTRIBUTION WIDTH 22.1 % (11.5-14.5); WHITE BLOOD COUNT 9.9 K/uL (4.8-10.8)
[2019-02-22 05:33] LABS: ALB/GLOB RATIO 0.7 (1.0-2.1); ALBUMIN 2.1 g/dL (3.5-5.0); CALCIUM 7.3 mg/dL (8.4-10.2)
--- NOTE | 2019-02-22 07:25 | CP.PCM.PN ---
<Yrn Moncada - Last Filed: 02/22/19 07:34> Subjective - Date & Time of Evaluation Date of Evaluation: 02/22/19 Time of Evaluation: 07:00 - Subjective Subjective: 78 y/o M was seen and examined by bedside with Dr Mathew. Pt is awake and alert, oriented x3, follows commands. Pt reports feeling OK, with abdominal pain when moves or palpation of abdomen. Colostomy bag present with liquid stool volume with NO noticeable blood. Pt afebrile, vomited last night, BP decreased and given 2x bolus of 500mL of NS. Objective - Vital Signs/Intake and Output Vital Signs (last 24 hours): Temp Pulse Resp BP Pulse Ox 97.7 F 130 H 20 120/74 96 02/22/19 04:58 02/22/19 07:03 02/22/19 04:58 02/22/19 07:03 02/22/19 04:58 Intake and Output: 02/22/19 02/22/19 06:59 18:59 Intake Total 1330 Output Total 340 Balance 990 - Medications Medications: Current Medications Acetaminophen (Tylenol 325mg Tab) 650 mg PO Q6 [facility] Last Admin: 02/22/19 07:02 Dose: Not Given Atorvastatin Calcium (Lipitor) 40 mg PO DAILY [facility] Last Admin: 02/21/19 09:02 Dose: 40 mg Benzocaine/Menthol (Cepacol Sore Throat) 1 alysa PO Q3 PRN PRN Reason: Sore Throat Cyclobenzaprine HCl (Flexeril) 5 mg PO Q8 [facility] Last Admin: 02/21/19 00:52 Dose: Not Given Dextrose (Dextrose 50% Inj) 0 ml IV STAT PRN; Protocol PRN Reason: Hypoglycemia Protocol Last Admin: 02/06/19 05:35 Dose: 25 ml Dextrose (Glutose 15) 0 gm PO ONCE PRN; Protocol PRN Reason: Hypoglycemia Protocol Digoxin (Lanoxin) 0.125 mg IVP DAILY [facility] Last Admin: 02/21/19 09:00 Dose: 0.125 mg Dimethicone (Proshield Plus Skin Protectant) 1 applic TOP Q8 PRN PRN Reason: derm Last Admin: 02/14/19 09:50 Dose: 1 applic Ergocalciferol (Drisdol 50,000 Intl Units Cap) 1 cap PO FR [facility] Last Admin: 02/15/19 16:47 Dose: Not Given Fluticasone Propionate (Flonase) 2 spr PRIYA DAILY [facility] Last Admin: 02/21/19 08:59 Dose: 2 spr Glucagon (Glucagen Diagnostic Kit) 0 mg IM STAT PRN; Protocol PRN Reason: Hypoglycemia Protocol Hydromorphone HCl (Dilaudid) 1 mg IVP Q4 PRN PRN Reason: Pain, severe (8-10) Iron Sucrose 100 mg/ Sodium (Chloride) 105 mls @ 105 mls/hr IVPB DAILY [facility] Last Admin: 02/12/19 12:07 Dose: 105 mls/hr Potassium Chloride/Dextrose/Sod Cl (Potassium Chl 20 Meq In D5-1/2ns) 1,000 mls @ 110 mls/hr IV .Q9H6M [facility] Stop: 02/22/19 09:03 Last Admin: 02/22/19 03:12 Dose: 110 mls/hr Insulin Human Regular (Humulin R) 0 units SC ACHS [facility]; Protocol Last Admin: 02/21/19 21:30 Dose: Not Given Lidocaine (Lidoderm) 1 ea TD DAILY [facility] Last Admin: 02/21/19 09:00 Dose: 1 ea Memantine (Namenda) 10 mg PO BID [facility] Last Admin: 02/21/19 17:58 Dose: Not Given Mesalamine (Rowasa Enema) 4 gm RC HS [facility] Last Admin: 02/21/19 21:32 Dose: Not Given Methylprednisolone (Solu-Medrol) 10 mg IVP BID [facility] Last Admin: 02/21/19 18:05 Dose: 10 mg Metoprolol Tartrate (Lopressor) 2.5 mg IVP Q3 [facility] Last Admin: 02/22/19 07:03 Dose: 2.5 mg Oxycodone HCl (Oxycodone Immediate Release Tab) 5 mg PO Q6 PRN PRN Reason: Pain, moderate (4-7) Sennosides (Senokot Tab) 17.2 mg PO HS [facility] Last Admin: 02/21/19 21:32 Dose: Not Given Sitagliptin Phosphate (Januvia) 25 mg PO DAILY [facility] Last Admin: 02/21/19 09:00 Dose: 25 mg Sucralfate (Carafate Oral Susp) 1 gm PO QID [facility] Last Admin: 02/21/19 21:30 Dose: 1 gm Tamsulosin HCl (Flomax) 0.4 mg PO DAILY [facility] Last Admin: 02/21/19 09:01 Dose: 0.4 mg - Labs Labs: 02/22/19 04:20 02/22/19 04:20 PT 12.8 Seconds (9.8-13.1) 02/14/19 10:00 INR 1.1 02/14/19 10:00 APTT 30.6 Seconds (25.6-37.1) 02/14/19 10:00 - Constitutional Appears: No Acute Distress - Head Exam Head Exam: ATRAUMATIC, NORMAL INSPECTION - Eye Exam Eye Exam: EOMI, Normal appearance - ENT Exam ENT Exam: Mucous Membranes Moist - Neck Exam Neck Exam: Full ROM, Normal Inspection. absent: Lymphadenopathy, Meningismus - Respiratory Exam Respiratory Exam: NORMAL BREATHING PATTERN. absent: Rales, Rhonchi, Wheezes, Respiratory Distress - Cardiovascular Exam Cardiovascular Exam: Tachycardia, +S1, +S2 - GI/Abdominal Exam GI & Abdominal Exam: Distended, Soft, Tenderness (diffuse), Normal Bowel Sounds. absent: Firm, Guarding, Rigid Additional comments: Transverse colostomy patent, bag with light brown liquid stools. - Extremities Exam Extremities Exam: absent: Calf Tenderness, Pedal Edema - Neurological Exam Neurological Exam: Alert, Awake, Oriented x3 Assessment and Plan (1) Colonic stricture Status: Acute (2) Dementia Status: Chronic (3) CKD (chronic kidney disease) Status: Chronic (4) Diabetes Status: Chronic (5) Gait instability Status: Chronic (6) New onset a-fib Status: Acute (7) Ulcerative colitis, chronic Status: Chronic - Assessment and Plan (Free Text) Assessment: 78 y/o male with PMH of Ulcerative colitis, HTN, Bladder Ca, Dementia, prediabetes and CVA in 2007 recently admitted to [facility] for evaluation and management of GI bleeding, colonic stricture and anemia. PLAN: >Colonic stricture --POD#4. --S/P lap hand assist transverse colostomy . --Gen Surgery on Dr Nehemias barboza. --GI on board, Dr Abdul. --On regular diet. --Zofran 4mg IV, PRN ordered. >CKD, Stage 1 --Nephrology on board, Dr. Boone. --Creatinine at baseline. --Monitor BMP. 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 --Ulcerative Colitis under treatment. --Serum Ca+ 7.3 --Calculated corrected Ca++ 8.8 - WNL. >Ulcerative Colitis --Chronic --GI on board, Dr Abdul --On Methyl-prednisolone --Colonoscopy when stable as per GI. --C/w home med: Mesalamine >Normocytic Anemia, --Chronic, likely due to GI bleeding. S/p PRBC x 4 units transfused. --Hgb 10.4 - stable --Monitor CBC and for possible bleeding. >Afib --New onset this admission --Continuous cardiac monitoring. --Rate control: IV Metoprolol 2.5mg Q3H and IV digoxin 0.125mg daily --Cardiology on board, Dr. Potts. >Hypotension --Acute --Monitor vitals >DM2 --Chronic, controlled as last HbA1c 6.1 on 01/16/19. --C/w home meds --ISS and hypoglycemia protocol in place >Gait instability --PT/OT eval/treat --Fall precautions >DVT/wound prophylaxis --SCD's (recent active GI bleed) --C/w Louise Case discussed with Dr Mathew. [place] PGY-2 <Gatito Mathew - Last Filed: 02/23/19 15:16> Objective - Vital Signs/Intake and Output Vital Signs (last 24 hours): Temp Pulse Resp BP Pulse Ox 97.8 F 130 H 20 112/57 L 98 02/23/19 13:00 02/23/19 13:00 02/23/19 13:00 02/23/19 13:00 02/23/19 13:00 Intake and Output: 02/23/19 02/23/19 11:59 23:59 Intake Total 650 Output Total 600 Balance 50 - Medications Medications: Current Medications Acetaminophen (Tylenol 325mg Tab) 650 mg PO Q6 [facility] Last Admin: 02/23/19 09:08 Dose: 650 mg Atorvastatin Calcium (Lipitor) 40 mg PO DAILY [facility] Last Admin: 02/23/19 08:49 Dose: 40 mg Benzocaine/Menthol (Cepacol Sore Throat) 1 alysa PO Q3 PRN PRN Reason: Sore Throat Cyclobenzaprine HCl (Flexeril) 5 mg PO Q8 [facility] Last Admin: 02/21/19 00:52 Dose: Not Given Dextrose (Dextrose 50% Inj) 0 ml IV STAT PRN; Protocol PRN Reason: Hypoglycemia Protocol Last Admin: 02/06/19 05:35 Dose: 25 ml Dextrose (Glutose 15) 0 gm PO ONCE PRN; Protocol PRN Reason: Hypoglycemia Protocol Digoxin (Lanoxin) 0.125 mg IVP DAILY [facility] Last Admin: 02/23/19 08:43 Dose: 0.125 mg Dimethicone (Proshield Plus Skin Protectant) 1 applic TOP Q8 PRN PRN Reason: derm Last Admin: 02/14/19 09:50 Dose: 1 applic Ergocalciferol (Drisdol 50,000 Intl Units Cap) 1 cap PO FR [facility] Last Admin: 02/22/19 16:04 Dose: 1 cap Fluticasone Propionate (Flonase) 2 spr PRIYA DAILY [facility] Last Admin: 02/23/19 08:57 Dose: 2 spr Glucagon (Glucagen Diagnostic Kit) 0 mg IM STAT PRN; Protocol PRN Reason: Hypoglycemia Protocol Hydromorphone HCl (Dilaudid) 1 mg IVP Q4 PRN PRN Reason: Pain, severe (8-10) Last Admin: 02/23/19 00:55 Dose: 1 mg Iron Sucrose 100 mg/ Sodium (Chloride) 105 mls @ 105 mls/hr IVPB DAILY [facility] Last Admin: 02/12/19 12:07 Dose: 105 mls/hr Dextrose/Sodium Chloride (Dextrose 5%/0.9% Ns 1000 Ml) 1,000 mls @ 100 mls/hr IV .Q10H [facility] Stop: 02/24/19 13:40 Insulin Human Regular (Humulin R) 0 units SC ACHS [facility]; Protocol Last Admin: 02/23/19 12:55 Dose: Not Given Lidocaine (Lidoderm) 1 ea TD DAILY [facility] Last Admin: 02/23/19 08:48 Dose: 1 ea Memantine (Namenda) 10 mg PO BID [facility] Last Admin: 02/23/19 08:50 Dose: 10 mg Mesalamine (Rowasa Enema) 4 gm RC HS [facility] Last Admin: 02/22/19 21:22 Dose: Not Given Methylprednisolone (Solu-Medrol) 10 mg IVP BID [facility] Last Admin: 02/23/19 08:53 Dose: 10 mg Metoprolol Tartrate (Lopressor) 2.5 mg IVP Q3 [facility] Last Admin: 02/23/19 12:56 Dose: 2.5 mg Ondansetron HCl (Zofran Inj) 4 mg IVP Q4 PRN PRN Reason: Nausea/Vomiting Last Admin: 02/22/19 15:57 Dose: 4 mg Oxycodone HCl (Oxycodone Immediate Release Tab) 5 mg PO Q6 PRN PRN Reason: Pain, moderate (4-7) Sennosides (Senokot Tab) 17.2 mg PO HS [facility] Last Admin: 02/22/19 21:22 Dose: Not Given Sitagliptin Phosphate (Januvia) 25 mg PO DAILY [facility] Last Admin: 02/23/19 08:58 Dose: 25 mg Sucralfate (Carafate Oral Susp) 1 gm PO QID [facility] Last Admin: 02/23/19 12:55 Dose: 1 gm Tamsulosin HCl (Flomax) 0.4 mg PO DAILY [facility] Last Admin: 02/23/19 08:57 Dose: 0.4 mg - Labs Labs: 02/23/19 04:25 02/23/19 04:25 PT 12.8 Seconds (9.8-13.1) 02/14/19 10:00 INR 1.1 02/14/19 10:00 APTT 30.6 Seconds (25.6-37.1) 02/14/19 10:00 Assessment and Plan - Assessment and Plan (Free Text) Assessment: Patient was personally seen and examined by me in rounds with residents. Available labs and diagnostic data reviewed. Case, Patient's condition and management plan discussed with residents in rounds. Agree with resident's progress note. Plan: As ordered.
[2019-02-22] MEDS: Sucralfate 1 gm/10 ml Oral Susp UD PO SCH ×4 (08:31→21:21)
[2019-02-22] MEDS: Insulin Regular 100 units/ml SC SCH ×4 (08:32→22:08)
--- NOTE | 2019-02-22 08:34 | CP.PCM.PN ---
<Santos Hendricks - Last Filed: 02/22/19 09:34> Subjective - Date & Time of Evaluation Date of Evaluation: 02/22/19 Time of Evaluation: 08:30 - Subjective Subjective: Surgery Progress Note- Dr. Rivera Patient seen and examined at bedside. one episode of vomiting non-blood, non- bilious yesterday. Continuing to have liquid brown stool. On soft diet, does not have an appetite at this time. Cr. slightly trending up above baseline Objective - Vital Signs/Intake and Output Vital Signs (last 24 hours): Temp Pulse Resp BP Pulse Ox 97.6 F 63 18 111/72 96 02/22/19 07:36 02/22/19 07:36 02/22/19 07:36 02/22/19 07:36 02/22/19 07:36 Intake and Output: 02/22/19 02/22/19 06:59 18:59 Intake Total 1330 Output Total 340 Balance 990 - Medications Medications: Current Medications Acetaminophen (Tylenol 325mg Tab) 650 mg PO Q6 [facility] Last Admin: 02/22/19 07:02 Dose: Not Given Atorvastatin Calcium (Lipitor) 40 mg PO DAILY [facility] Last Admin: 02/21/19 09:02 Dose: 40 mg Benzocaine/Menthol (Cepacol Sore Throat) 1 alysa PO Q3 PRN PRN Reason: Sore Throat Cyclobenzaprine HCl (Flexeril) 5 mg PO Q8 [facility] Last Admin: 02/21/19 00:52 Dose: Not Given Dextrose (Dextrose 50% Inj) 0 ml IV STAT PRN; Protocol PRN Reason: Hypoglycemia Protocol Last Admin: 02/06/19 05:35 Dose: 25 ml Dextrose (Glutose 15) 0 gm PO ONCE PRN; Protocol PRN Reason: Hypoglycemia Protocol Digoxin (Lanoxin) 0.125 mg IVP DAILY [facility] Last Admin: 02/21/19 09:00 Dose: 0.125 mg Dimethicone (Proshield Plus Skin Protectant) 1 applic TOP Q8 PRN PRN Reason: derm Last Admin: 02/14/19 09:50 Dose: 1 applic Ergocalciferol (Drisdol 50,000 Intl Units Cap) 1 cap PO FR [facility] Last Admin: 02/15/19 16:47 Dose: Not Given Fluticasone Propionate (Flonase) 2 spr PRIYA DAILY [facility] Last Admin: 02/21/19 08:59 Dose: 2 spr Glucagon (Glucagen Diagnostic Kit) 0 mg IM STAT PRN; Protocol PRN Reason: Hypoglycemia Protocol Hydromorphone HCl (Dilaudid) 1 mg IVP Q4 PRN PRN Reason: Pain, severe (8-10) Iron Sucrose 100 mg/ Sodium (Chloride) 105 mls @ 105 mls/hr IVPB DAILY [facility] Last Admin: 02/12/19 12:07 Dose: 105 mls/hr Potassium Chloride/Dextrose/Sod Cl (Potassium Chl 20 Meq In D5-1/2ns) 1,000 mls @ 110 mls/hr IV .Q9H6M [facility] Stop: 02/22/19 09:03 Last Admin: 02/22/19 03:12 Dose: 110 mls/hr Insulin Human Regular (Humulin R) 0 units SC ACHS [facility]; Protocol Last Admin: 02/21/19 21:30 Dose: Not Given Lidocaine (Lidoderm) 1 ea TD DAILY [facility] Last Admin: 02/21/19 09:00 Dose: 1 ea Memantine (Namenda) 10 mg PO BID [facility] Last Admin: 02/21/19 17:58 Dose: Not Given Mesalamine (Rowasa Enema) 4 gm RC HS [facility] Last Admin: 02/21/19 21:32 Dose: Not Given Methylprednisolone (Solu-Medrol) 10 mg IVP BID [facility] Last Admin: 02/21/19 18:05 Dose: 10 mg Metoprolol Tartrate (Lopressor) 2.5 mg IVP Q3 [facility] Last Admin: 02/22/19 07:03 Dose: 2.5 mg Ondansetron HCl (Zofran Inj) 4 mg IVP Q4 PRN PRN Reason: Nausea/Vomiting Oxycodone HCl (Oxycodone Immediate Release Tab) 5 mg PO Q6 PRN PRN Reason: Pain, moderate (4-7) Sennosides (Senokot Tab) 17.2 mg PO HS [facility] Last Admin: 02/21/19 21:32 Dose: Not Given Sitagliptin Phosphate (Januvia) 25 mg PO DAILY [facility] Last Admin: 02/21/19 09:00 Dose: 25 mg Sucralfate (Carafate Oral Susp) 1 gm PO QID [facility] Last Admin: 02/21/19 21:30 Dose: 1 gm Tamsulosin HCl (Flomax) 0.4 mg PO DAILY [facility] Last Admin: 02/21/19 09:01 Dose: 0.4 mg - Labs Labs: 02/22/19 04:20 02/22/19 04:20 PT 12.8 Seconds (9.8-13.1) 02/14/19 10:00 INR 1.1 02/14/19 10:00 APTT 30.6 Seconds (25.6-37.1) 02/14/19 10:00 - Constitutional Appears: Non-toxic, No Acute Distress, Chronically Ill - Eye Exam Eye Exam: EOMI. absent: PERRL - ENT Exam ENT Exam: Mucous Membranes Moist - Respiratory Exam Respiratory Exam: NORMAL BREATHING PATTERN. absent: Accessory Muscle Use, Respiratory Distress - Cardiovascular Exam Cardiovascular Exam: REGULAR RHYTHM. absent: Bradycardia, Tachycardia - GI/Abdominal Exam GI & Abdominal Exam: Soft, Tenderness (midly tender around colostomy site). absent: Distended, Firm, Guarding, Rigid Additional comments: Colosotmy pink, patent w/ liquid stool output - Neurological Exam Neurological Exam: Alert, Awake, Oriented x3 - Psychiatric Exam Psychiatric exam: Normal Affect - Skin Skin Exam: Intact, Warm Assessment and Plan - Assessment and Plan (Free Text) Assessment: 78 year old male with rectal stricture, POD#4 lap hand assist transverse colostomy Plan: - Proper sleep wake cycles during hospital stay - advance diet as tolerated - Pain control - Monitor colostomy output - replete lytes PRN - Further recommendations as per Dr. Avila PGY2 <Jp Del Cid - Last Filed: 02/23/19 14:19> Objective - Vital Signs/Intake and Output Vital Signs (last 24 hours): Temp Pulse Resp BP Pulse Ox 97.8 F 130 H 20 112/57 L 98 02/23/19 13:00 02/23/19 13:00 02/23/19 13:00 02/23/19 13:00 02/23/19 13:00 Intake and Output: 02/23/19 02/23/19 06:59 18:59 Intake Total 650 Output Total 600 Balance 50 - Medications Medications: Current Medications Acetaminophen (Tylenol 325mg Tab) 650 mg PO Q6 [facility] Last Admin: 02/23/19 09:08 Dose: 650 mg Atorvastatin Calcium (Lipitor) 40 mg PO DAILY [facility] Last Admin: 02/23/19 08:49 Dose: 40 mg Benzocaine/Menthol (Cepacol Sore Throat) 1 alysa PO Q3 PRN PRN Reason: Sore Throat Cyclobenzaprine HCl (Flexeril) 5 mg PO Q8 [facility] Last Admin: 02/21/19 00:52 Dose: Not Given Dextrose (Dextrose 50% Inj) 0 ml IV STAT PRN; Protocol PRN Reason: Hypoglycemia Protocol Last Admin: 02/06/19 05:35 Dose: 25 ml Dextrose (Glutose 15) 0 gm PO ONCE PRN; Protocol PRN Reason: Hypoglycemia Protocol Digoxin (Lanoxin) 0.125 mg IVP DAILY [facility] Last Admin: 02/23/19 08:43 Dose: 0.125 mg Dimethicone (Proshield Plus Skin Protectant) 1 applic TOP Q8 PRN PRN Reason: derm Last Admin: 02/14/19 09:50 Dose: 1 applic Ergocalciferol (Drisdol 50,000 Intl Units Cap) 1 cap PO FR [facility] Last Admin: 02/22/19 16:04 Dose: 1 cap Fluticasone Propionate (Flonase) 2 spr PRIYA DAILY [facility] Last Admin: 02/23/19 08:57 Dose: 2 spr Glucagon (Glucagen Diagnostic Kit) 0 mg IM STAT PRN; Protocol PRN Reason: Hypoglycemia Protocol Hydromorphone HCl (Dilaudid) 1 mg IVP Q4 PRN PRN Reason: Pain, severe (8-10) Last Admin: 02/23/19 00:55 Dose: 1 mg Iron Sucrose 100 mg/ Sodium (Chloride) 105 mls @ 105 mls/hr IVPB DAILY [facility] Last Admin: 02/12/19 12:07 Dose: 105 mls/hr Dextrose/Sodium Chloride (Dextrose 5%/0.9% Ns 1000 Ml) 1,000 mls @ 100 mls/hr IV .Q10H [facility] Stop: 02/24/19 13:40 Insulin Human Regular (Humulin R) 0 units SC ACHS [facility]; Protocol Last Admin: 02/23/19 12:55 Dose: Not Given Lidocaine (Lidoderm) 1 ea TD DAILY [facility] Last Admin: 02/23/19 08:48 Dose: 1 ea Memantine (Namenda) 10 mg PO BID [facility] Last Admin: 02/23/19 08:50 Dose: 10 mg Mesalamine (Rowasa Enema) 4 gm RC HS [facility] Last Admin: 02/22/19 21:22 Dose: Not Given Methylprednisolone (Solu-Medrol) 10 mg IVP BID [facility] Last Admin: 02/23/19 08:53 Dose: 10 mg Metoprolol Tartrate (Lopressor) 2.5 mg IVP Q3 [facility] Last Admin: 02/23/19 12:56 Dose: 2.5 mg Ondansetron HCl (Zofran Inj) 4 mg IVP Q4 PRN PRN Reason: Nausea/Vomiting Last Admin: 02/22/19 15:57 Dose: 4 mg Oxycodone HCl (Oxycodone Immediate Release Tab) 5 mg PO Q6 PRN PRN Reason: Pain, moderate (4-7) Sennosides (Senokot Tab) 17.2 mg PO HS [facility] Last Admin: 02/22/19 21:22 Dose: Not Given Sitagliptin Phosphate (Januvia) 25 mg PO DAILY [facility] Last Admin: 02/23/19 08:58 Dose: 25 mg Sucralfate (Carafate Oral Susp) 1 gm PO QID [facility] Last Admin: 02/23/19 12:55 Dose: 1 gm Tamsulosin HCl (Flomax) 0.4 mg PO DAILY [facility] Last Admin: 02/23/19 08:57 Dose: 0.4 mg - Labs Labs: 02/23/19 04:25 02/23/19 04:25 PT 12.8 Seconds (9.8-13.1) 02/14/19 10:00 INR 1.1 02/14/19 10:00 APTT 30.6 Seconds (25.6-37.1) 02/14/19 10:00 Assessment and Plan - Assessment and Plan (Free Text) Plan: All medical record entries made by the resident were at my direction. I have reviewed the chart and agree that the record accurately reflects my personal performance of the history, physical exam, and medical decision making.
[2019-02-22] MEDS: Lidocaine 5% Patch TD SCH (08:35)
[2019-02-22] MEDS: MethylPREDNISolone 40 mg Vial IVP SCH ×3 (08:42→16:07)
[2019-02-22] MEDS: Digoxin 500 mcg/2ml (0.5 mg/2ml) Inj IVP SCH (08:49)
--- NOTE | 2019-02-22 12:42 | CP.PCM.CON ---
History of Present Illness - History of Present Illness History of Present Illness: Palliative Care Consult for Goals of Care Patient is a 78 year old male who presented to the ED on 02/05/19 complaining of BRBPR for the past few months and worsening abdominal pain. As per family members, patient has been losing weight and lost 10-15 pounds in week prior to this ED visit. He was found to be anemic and received blood transfusions during this admission. Patient had colonoscopy on 02/11 PMH: Anemia, CVA, Dementia, HTN, Hypercholesterolemia, Hyperlipidemia, Bladder ca, TIA Soc hx: Denies smoking, etoh, or alcohol abuse Fam hx: Unknown Review of Systems - Review of Systems Systems not reviewed;Unavailable: Acuity of Condition, Altered Mental Status Review of Systems: not obtained from patient due to altered mental status and condition Past Patient History - Past Medical History & Family History Past Medical History?: Yes Past Family History: Reviewed and not pertinent - Past Social History Smoking Status: Never Smoked Chewing Tobacco Use: No Cigar Use: No Alcohol: None Drugs: Denies Home Situation {Lives}: Other - CARDIAC Hx Cardiac Disorders: Yes Hx Hypercholesterolemia: Yes Hx Hypertension: Yes - PULMONARY Hx Respiratory Disorders: No - NEUROLOGICAL HX Cerebrovascular Accident: Yes - HEENT Hx HEENT Problems: No - RENAL Hx Chronic Kidney Disease: No - ENDOCRINE/METABOLIC Hx Diabetes Mellitus Type 2: Yes - HEMATOLOGICAL/ONCOLOGICAL Hx Blood Disorders: Yes Hx Anemia: Yes Hx Human Immunodeficiency Virus (HIV): No - INTEGUMENTARY Hx Dermatological Problems: No - MUSCULOSKELETAL/RHEUMATOLOGICAL Hx Musculoskeletal Disorders: Yes Hx Falls: Yes (4 months) Hx Gout: Yes Hx Unsteady Gait: Yes (post CVA) - GASTROINTESTINAL Hx Gastrointestinal Disorders: Yes Hx Colitis: Yes (chronic) Hx Gastroesophageal Reflux: Yes HX Swallowing Problems: Yes (current complaint) - GENITOURINARY/GYNECOLOGICAL Hx Genitourinary Disorders: Yes Hx Bladder Cancer: Yes Hx Hematuria: Yes Other/Comment: HX: URINARY FREQUENCY - PSYCHIATRIC Hx Psychophysiologic Disorder: No Hx Substance Use: No - SURGICAL HISTORY Hx Surgeries: Yes Other/Comment: HX: BLADDER CANCER TURBT. HX: NEPHROURETERECTOMY 2014. HX: CYSTOSCOPY WITH BLADDER BIOPSY AND FULGURATION(08/20/18) - ANESTHESIA Hx Anesthesia: Yes Hx Anesthesia Reactions: No Hx Malignant Hyperthermia: No Meds Allergies/Adverse Reactions: Allergies Allergy/AdvReac Type Severity Reaction Status Date / Time Penicillins Allergy RASH Verified 01/28/19 13:34 - Medications Medications: Current Medications Acetaminophen (Tylenol 325mg Tab) 650 mg PO Q6 [facility] Last Admin: 02/22/19 10:12 Dose: Not Given Atorvastatin Calcium (Lipitor) 40 mg PO DAILY [facility] Last Admin: 02/22/19 08:35 Dose: Not Given Benzocaine/Menthol (Cepacol Sore Throat) 1 alysa PO Q3 PRN PRN Reason: Sore Throat Cyclobenzaprine HCl (Flexeril) 5 mg PO Q8 [facility] Last Admin: 02/21/19 00:52 Dose: Not Given Dextrose (Dextrose 50% Inj) 0 ml IV STAT PRN; Protocol PRN Reason: Hypoglycemia Protocol Last Admin: 02/06/19 05:35 Dose: 25 ml Dextrose (Glutose 15) 0 gm PO ONCE PRN; Protocol PRN Reason: Hypoglycemia Protocol Digoxin (Lanoxin) 0.125 mg IVP DAILY [facility] Last Admin: 02/22/19 08:49 Dose: 0.125 mg Dimethicone (Proshield Plus Skin Protectant) 1 applic TOP Q8 PRN PRN Reason: derm Last Admin: 02/14/19 09:50 Dose: 1 applic Ergocalciferol (Drisdol 50,000 Intl Units Cap) 1 cap PO FR [facility] Last Admin: 02/15/19 16:47 Dose: Not Given Fluticasone Propionate (Flonase) 2 spr PRIYA DAILY [facility] Last Admin: 02/22/19 08:31 Dose: 2 spr Glucagon (Glucagen Diagnostic Kit) 0 mg IM STAT PRN; Protocol PRN Reason: Hypoglycemia Protocol Hydromorphone HCl (Dilaudid) 1 mg IVP Q4 PRN PRN Reason: Pain, severe (8-10) Iron Sucrose 100 mg/ Sodium (Chloride) 105 mls @ 105 mls/hr IVPB DAILY [facility] Last Admin: 02/12/19 12:07 Dose: 105 mls/hr Insulin Human Regular (Humulin R) 0 units SC ACHS [facility]; Protocol Last Admin: 02/22/19 08:32 Dose: Not Given Lidocaine (Lidoderm) 1 ea TD DAILY [facility] Last Admin: 02/22/19 08:35 Dose: 1 ea Memantine (Namenda) 10 mg PO BID [facility] Last Admin: 02/22/19 08:35 Dose: Not Given Mesalamine (Rowasa Enema) [address] [facility] Last Admin: 02/21/19 21:32 Dose: Not Given Methylprednisolone (Solu-Medrol) 10 mg IVP BID [facility] Last Admin: 02/22/19 08:43 Dose: 10 mg Metoprolol Tartrate (Lopressor) 2.5 mg IVP Q3 [facility] Last Admin: 02/22/19 10:11 Dose: 2.5 mg Ondansetron HCl (Zofran Inj) 4 mg IVP Q4 PRN PRN Reason: Nausea/Vomiting Oxycodone HCl (Oxycodone Immediate Release Tab) 5 mg PO Q6 PRN PRN Reason: Pain, moderate (4-7) Sennosides (Senokot Tab) 17.[address] [facility] Last Admin: 02/21/19 21:32 Dose: Not Given Sitagliptin Phosphate (Januvia) 25 mg PO DAILY [facility] Last Admin: 02/22/19 08:33 Dose: Not Given Sucralfate (Carafate Oral Susp) 1 gm PO QID [facility] Last Admin: 02/22/19 08:31 Dose: Not Given Tamsulosin HCl (Flomax) 0.4 mg PO DAILY [facility] Last Admin: 02/22/19 10:06 Dose: Not Given Physical Exam - Constitutional Appears: No Acute Distress, Chronically Ill - Head Exam Head Exam: ATRAUMATIC, NORMAL INSPECTION, NORMOCEPHALIC - Eye Exam Eye Exam: Normal appearance Pupil Exam: PERRL - ENT Exam ENT Exam: Mucous Membranes Moist - Neck Exam Neck exam: Positive for: Normal Inspection - Respiratory Exam Respiratory Exam: Decreased Breath Sounds Additional comments: patient currently on 2L nc - GI/Abdominal Exam GI & Abdominal Exam: Normal Bowel Sounds - Rectal Exam Additional comments: patient has colostomy-dark brown liquid stool - Extremities Exam Extremities exam: Positive for: pedal pulses present - Neurological Exam Neurological exam: Altered - Psychiatric Exam Psychiatric exam: Flat Affect - Skin Skin Exam: Pallor, Warm Results - Vital Signs Recent Vital Signs: Last Vital Signs Temp 98.1 F 02/22/19 11:37 Pulse 69 02/22/19 11:37 Resp 18 02/22/19 11:37 BP 150/69 02/22/19 11:37 Pulse Ox 96 02/22/19 11:37 - Labs Result Diagrams: 02/22/19 04:20 02/22/19 04:20 Labs: Laboratory Results - last 24 hr 02/18/19 02/21/19 02/21/19 12:15 06:16 06:16 WBC RBC Hgb Hct MCV MCH MCHC RDW Plt Count Sodium Potassium Chloride Carbon Dioxide Anion Gap BUN Creatinine Est GFR ( Amer) Est GFR (Non-Af Amer) POC Glucose (mg/dL) Random Glucose Calcium Phosphorus Magnesium Total Bilirubin AST ALT Alkaline Phosphatase Total Protein Albumin Globulin Albumin/Globulin Ratio Folate 4.0 RPR Nonreactive Crossmatch See Detail 02/21/19 02/21/19 02/21/19 10:51 15:42 21:24 WBC RBC Hgb Hct MCV MCH MCHC RDW Plt Count Sodium Potassium Chloride Carbon Dioxide Anion Gap BUN Creatinine Est GFR ( Amer) Est GFR (Non-Af Amer) POC Glucose (mg/dL) 138 H 181 H 161 H Random Glucose Calcium Phosphorus Magnesium Total Bilirubin AST ALT Alkaline Phosphatase Total Protein Albumin Globulin Albumin/Globulin Ratio Folate RPR Crossmatch 02/22/19 02/22/19 02/22/19 04:20 04:20 05:27 WBC 9.9 RBC 3.94 L Hgb 10.4 L Hct 32.9 L MCV 83.6 MCH 26.4 L MCHC 31.6 L RDW 22.1 H Plt Count 140 Sodium 145 Potassium 4.5 Chloride 119 H Carbon Dioxide 18 L Anion Gap 13 BUN 28 H Creatinine 1.9 H Est GFR ( Amer) 42 Est GFR (Non-Af Amer) 34 POC Glucose (mg/dL) 141 H Random Glucose 122 H Calcium 7.3 L Phosphorus 3.8 Magnesium 2.3 Total Bilirubin 0.4 AST 21 ALT 29 Alkaline Phosphatase 71 Total Protein 4.8 L Albumin 2.1 L D Globulin 2.8 Albumin/Globulin Ratio 0.7 L Folate RPR Crossmatch 02/22/19 10:28 WBC RBC Hgb Hct MCV MCH MCHC RDW Plt Count Sodium Potassium Chloride Carbon Dioxide Anion Gap BUN Creatinine Est GFR ( Amer) Est GFR (Non-Af Amer) POC Glucose (mg/dL) 134 H Random Glucose Calcium Phosphorus Magnesium Total Bilirubin AST ALT Alkaline Phosphatase Total Protein Albumin Globulin Albumin/Globulin Ratio Folate RPR Crossmatch Assessment & Plan - Assessment and Plan (Free Text) Assessment: Full Code, Patient does not have an Advanced Directive Palliative Performance Scale 40% I reviewed medical records, diagnostic tests, examine and interviewed patient, , and, son at the bedside Goals of Care: As per patient's Sharri, she along with her 3 sons are joint decision makers for the patient. They would like full treatment as much as the patient can tolerate. There is no advance directive or POLST. Family was educating on AD and POLST and they verbalized understanding. They believe having their wishes documented is appropriate at this time. They will discuss this i nformation with the patient's other children and will then document Goals of care. Tuyet COLLAR PACKER made aware Code Status: Discussed code status with patient's and one of his son's. They were educated on the different options they have regarding code status and will further discuss with the other children . They verbalized understanding of information provided. Patient currently FULL CODE Tuyet COLLAR PACKER made aware Impression Altered Mental Status Pain Vomiting Poor PO intake urine incontinence Decreased mobility Suggestion Reoirent and redirect as needed Assess for pain q4h (IV pain meds available) Continue IV zofran Keep skin clean and dry Max assist with ADLs and repositioning Continue PT/OT Will continue Goals of Care discussion Palliative Care will remain on board as needed Time spent with patient 60 min
[2019-02-22] MEDS ORDERED: Barium Sulfate Susp 0.1% w/v, 0.1% w/w 450 mL Bottle PO ONE (13:05)
[2019-02-22] MEDS ORDERED: Sodium Chloride 0.9% 1,000 ML IV SCH (14:15)
--- NOTE | 2019-02-22 15:20 | RAD ---
Date of service: 02/22/2019 PROCEDURE: Small-bowel series. HISTORY: Decreased small bowel in a patient status post blow hole colostomy COMPARISON: Correlation made with prior barium enema TECHNIQUE: Supine clay processing labourer films of the abdomen performed.. Note that the patient refused drink oral contrast material and therefore could not be performed. FINDINGS: Assembled [employer] Repairer films of the abdomen demonstrate colostomy hardware mid abdomen with metallic surgical clips just cephalic into the right of the colostomy. Several distended air-filled loops of small bowel in the right abdomen min may represent postoperative ileus.. The stomach also appears to be distended with air Note also made of multiple radiopaque radiation implant seeds in the distribution of the prostate gland. IMPRESSION: Colostomy hardware seen in the mid abdomen. Stomach appears distended with air Findings suggest postoperative small bowel ileus. Small bowel series was not performed as patient refused to drink oral contrast material.
[2019-02-22] MEDS: Ergocalciferol 50,000 Intl Units Cap PO SCH (16:04)
[2019-02-22] MEDS ORDERED: Dextrose 5%/0.45% NS 1,000 ML IV SCH (18:00)
[2019-02-23] MEDS: Metoprolol 1 mg/ml Inj IVP SCH ×8 (00:53→21:11)
[2019-02-23 06:01] LABS: HEMOGLOBIN 9.9 g/dL (12.0-18.0); MEAN CELL VOLUME 85.4 fl (80.0-94.0); MEAN CORPUSCULAR HEMOGLOBIN 26.7 pg (27.0-31.0); MEAN CORPUSCULAR HGB CONC 31.2 g/dL (33.0-37.0); RBC 3.72 Mil/uL (4.40-5.90); RED CELL DISTRIBUTION WIDTH 22.5 % (11.5-14.5); WHITE BLOOD COUNT 9.9 K/uL (4.8-10.8)
[2019-02-23 06:28] LABS: ALB/GLOB RATIO 0.7 (1.0-2.1); CALCIUM 7.3 mg/dL (8.4-10.2)
--- NOTE | 2019-02-23 08:07 | CP.PCM.PN ---
<Santos Hendricks - Last Filed: 02/23/19 08:19> Subjective - Date & Time of Evaluation Date of Evaluation: 02/23/19 Time of Evaluation: 08:02 - Subjective Subjective: Surgery Progress note- Dr. Rivera Patient seen and examined at bedside. on soft diet. tolerating with increase stool output in colostomy bag w/ air. Stoma pink and patent. yesterday patient was refusing small bowel follow through imaging. Denies fevers, chills, chest pain, shortness of breath. +OOB in [facility]. Objective - Vital Signs/Intake and Output Vital Signs (last 24 hours): Temp Pulse Resp BP Pulse Ox 97.9 F 145 H 18 94/65 L 94 L 02/23/19 04:51 02/23/19 07:30 02/23/19 04:51 02/23/19 07:30 02/23/19 04:51 Intake and Output: 02/23/19 02/23/19 06:59 18:59 Intake Total 650 Output Total 600 Balance 50 - Medications Medications: Current Medications Acetaminophen (Tylenol 325mg Tab) 650 mg PO Q6 [facility] Last Admin: 02/23/19 04:47 Dose: Not Given Atorvastatin Calcium (Lipitor) 40 mg PO DAILY [facility] Last Admin: 02/22/19 08:35 Dose: Not Given Benzocaine/Menthol (Cepacol Sore Throat) 1 alysa PO Q3 PRN PRN Reason: Sore Throat Cyclobenzaprine HCl (Flexeril) 5 mg PO Q8 [facility] Last Admin: 02/21/19 00:52 Dose: Not Given Dextrose (Dextrose 50% Inj) 0 ml IV STAT PRN; Protocol PRN Reason: Hypoglycemia Protocol Last Admin: 02/06/19 05:35 Dose: 25 ml Dextrose (Glutose 15) 0 gm PO ONCE PRN; Protocol PRN Reason: Hypoglycemia Protocol Digoxin (Lanoxin) 0.125 mg IVP DAILY [facility] Last Admin: 02/22/19 08:49 Dose: 0.125 mg Dimethicone (Proshield Plus Skin Protectant) 1 applic TOP Q8 PRN PRN Reason: derm Last Admin: 02/14/19 09:50 Dose: 1 applic Ergocalciferol (Drisdol 50,000 Intl Units Cap) 1 cap PO FR [facility] Last Admin: 02/22/19 16:04 Dose: 1 cap Fluticasone Propionate (Flonase) 2 spr PRIYA DAILY [facility] Last Admin: 02/22/19 08:31 Dose: 2 spr Glucagon (Glucagen Diagnostic Kit) 0 mg IM STAT PRN; Protocol PRN Reason: Hypoglycemia Protocol Hydromorphone HCl (Dilaudid) 1 mg IVP Q4 PRN PRN Reason: Pain, severe (8-10) Last Admin: 02/23/19 00:55 Dose: 1 mg Iron Sucrose 100 mg/ Sodium (Chloride) 105 mls @ 105 mls/hr IVPB DAILY [facility] Last Admin: 02/12/19 12:07 Dose: 105 mls/hr Dextrose/Sodium Chloride (Dextrose 5%/0.45% Ns 1000 Ml) 1,000 mls @ 50 mls/hr IV .Q20H [facility] Stop: 02/23/19 17:50 Last Admin: 02/22/19 18:11 Dose: 50 mls/hr Insulin Human Regular (Humulin R) 0 units SC ACHS [facility]; Protocol Last Admin: 02/22/19 22:08 Dose: Not Given Lidocaine (Lidoderm) 1 ea TD DAILY [facility] Last Admin: 02/22/19 08:35 Dose: 1 ea Memantine (Namenda) 10 mg PO BID [facility] Last Admin: 02/22/19 16:07 Dose: 10 mg Mesalamine (Rowasa Enema) 4 gm RC HS [facility] Last Admin: 02/22/19 21:22 Dose: Not Given Methylprednisolone (Solu-Medrol) 10 mg IVP BID [facility] Last Admin: 02/22/19 16:07 Dose: 10 mg Metoprolol Tartrate (Lopressor) 2.5 mg IVP Q3 [facility] Last Admin: 02/23/19 07:30 Dose: Not Given Ondansetron HCl (Zofran Inj) 4 mg IVP Q4 PRN PRN Reason: Nausea/Vomiting Last Admin: 02/22/19 15:57 Dose: 4 mg Oxycodone HCl (Oxycodone Immediate Release Tab) 5 mg PO Q6 PRN PRN Reason: Pain, moderate (4-7) Sennosides (Senokot Tab) 17.2 mg PO HS [facility] Last Admin: 02/22/19 21:22 Dose: Not Given Sitagliptin Phosphate (Januvia) 25 mg PO DAILY [facility] Last Admin: 02/22/19 08:33 Dose: Not Given Sucralfate (Carafate Oral Susp) 1 gm PO QID [facility] Last Admin: 02/22/19 21:21 Dose: 1 gm Tamsulosin HCl (Flomax) 0.4 mg PO DAILY [facility] Last Admin: 02/22/19 10:06 Dose: Not Given - Labs Labs: 02/23/19 04:25 02/23/19 04:25 PT 12.8 Seconds (9.8-13.1) 02/14/19 10:00 INR 1.1 02/14/19 10:00 APTT 30.6 Seconds (25.6-37.1) 02/14/19 10:00 - Constitutional Appears: Non-toxic, No Acute Distress, Chronically Ill - Eye Exam Eye Exam: EOMI. absent: Scleral icterus - ENT Exam ENT Exam: Mucous Membranes Moist - Respiratory Exam Respiratory Exam: NORMAL BREATHING PATTERN. absent: Accessory Muscle Use, Respiratory Distress - Cardiovascular Exam Cardiovascular Exam: REGULAR RHYTHM. absent: Bradycardia, Tachycardia - GI/Abdominal Exam GI & Abdominal Exam: Soft, Tenderness (minimal tender). absent: Distended, Firm , Guarding, Rigid Additional comments: stoma pink patent with liquid brown stool and air in stoma bag - Neurological Exam Neurological Exam: Alert, Awake - Psychiatric Exam Psychiatric exam: Normal Affect - Skin Skin Exam: Intact, Warm Assessment and Plan - Assessment and Plan (Free Text) Assessment: 78 year old male with rectal stricture, POD#5 lap hand assist transverse colostomy Plan: - Proper sleep wake cycles during hospital stay - soft diet; advance diet as tolerated - c/s GI; all recs appreciated - Pain control - Monitor colostomy output - replete lytes PRN - Further recommendations as per Dr. Avila PGY2 <Jp Del Cid - Last Filed: 02/23/19 14:27> Objective - Vital Signs/Intake and Output Vital Signs (last 24 hours): Temp Pulse Resp BP Pulse Ox 97.8 F 130 H 20 112/57 L 98 02/23/19 13:00 02/23/19 13:00 02/23/19 13:00 02/23/19 13:00 02/23/19 13:00 Intake and Output: 02/23/19 02/23/19 06:59 18:59 Intake Total 650 Output Total 600 Balance 50 - Medications Medications: Current Medications Acetaminophen (Tylenol 325mg Tab) 650 mg PO Q6 [facility] Last Admin: 02/23/19 09:08 Dose: 650 mg Atorvastatin Calcium (Lipitor) 40 mg PO DAILY [facility] Last Admin: 02/23/19 08:49 Dose: 40 mg Benzocaine/Menthol (Cepacol Sore Throat) 1 alysa PO Q3 PRN PRN Reason: Sore Throat Cyclobenzaprine HCl (Flexeril) 5 mg PO Q8 [facility] Last Admin: 02/21/19 00:52 Dose: Not Given Dextrose (Dextrose 50% Inj) 0 ml IV STAT PRN; Protocol PRN Reason: Hypoglycemia Protocol Last Admin: 02/06/19 05:35 Dose: 25 ml Dextrose (Glutose 15) 0 gm PO ONCE PRN; Protocol PRN Reason: Hypoglycemia Protocol Digoxin (Lanoxin) 0.125 mg IVP DAILY [facility] Last Admin: 02/23/19 08:43 Dose: 0.125 mg Dimethicone (Proshield Plus Skin Protectant) 1 applic TOP Q8 PRN PRN Reason: derm Last Admin: 02/14/19 09:50 Dose: 1 applic Ergocalciferol (Drisdol 50,000 Intl Units Cap) 1 cap PO FR [facility] Last Admin: 02/22/19 16:04 Dose: 1 cap Fluticasone Propionate (Flonase) 2 spr PRIYA DAILY [facility] Last Admin: 02/23/19 08:57 Dose: 2 spr Glucagon (Glucagen Diagnostic Kit) 0 mg IM STAT PRN; Protocol PRN Reason: Hypoglycemia Protocol Hydromorphone HCl (Dilaudid) 1 mg IVP Q4 PRN PRN Reason: Pain, severe (8-10) Last Admin: 02/23/19 00:55 Dose: 1 mg Iron Sucrose 100 mg/ Sodium (Chloride) 105 mls @ 105 mls/hr IVPB DAILY [facility] Last Admin: 02/12/19 12:07 Dose: 105 mls/hr Dextrose/Sodium Chloride (Dextrose 5%/0.9% Ns 1000 Ml) 1,000 mls @ 100 mls/hr IV .Q10H [facility] Stop: 02/24/19 13:40 Insulin Human Regular (Humulin R) 0 units SC ACHS [facility]; Protocol Last Admin: 02/23/19 12:55 Dose: Not Given Lidocaine (Lidoderm) 1 ea TD DAILY [facility] Last Admin: 02/23/19 08:48 Dose: 1 ea Memantine (Namenda) 10 mg PO BID [facility] Last Admin: 02/23/19 08:50 Dose: 10 mg Mesalamine (Rowasa Enema) 4 gm RC HS [facility] Last Admin: 02/22/19 21:22 Dose: Not Given Methylprednisolone (Solu-Medrol) 10 mg IVP BID [facility] Last Admin: 02/23/19 08:53 Dose: 10 mg Metoprolol Tartrate (Lopressor) 2.5 mg IVP Q3 [facility] Last Admin: 02/23/19 12:56 Dose: 2.5 mg Ondansetron HCl (Zofran Inj) 4 mg IVP Q4 PRN PRN Reason: Nausea/Vomiting Last Admin: 02/22/19 15:57 Dose: 4 mg Oxycodone HCl (Oxycodone Immediate Release Tab) 5 mg PO Q6 PRN PRN Reason: Pain, moderate (4-7) Sennosides (Senokot Tab) 17.2 mg PO HS [facility] Last Admin: 02/22/19 21:22 Dose: Not Given Sitagliptin Phosphate (Januvia) 25 mg PO DAILY [facility] Last Admin: 02/23/19 08:58 Dose: 25 mg Sucralfate (Carafate Oral Susp) 1 gm PO QID [facility] Last Admin: 02/23/19 12:55 Dose: 1 gm Tamsulosin HCl (Flomax) 0.4 mg PO DAILY [facility] Last Admin: 02/23/19 08:57 Dose: 0.4 mg - Labs Labs: 02/23/19 04:25 02/23/19 04:25 PT 12.8 Seconds (9.8-13.1) 02/14/19 10:00 INR 1.1 02/14/19 10:00 APTT 30.6 Seconds (25.6-37.1) 02/14/19 10:00 Assessment and Plan - Assessment and Plan (Free Text) Plan: All medical record entries made by the resident were at my direction. I have reviewed the chart and agree that the record accurately reflects my personal performance of the history, physical exam, and medical decision making.
[2019-02-23] MEDS: Digoxin 500 mcg/2ml (0.5 mg/2ml) Inj IVP SCH (08:43)
[2019-02-23] MEDS: Lidocaine 5% Patch TD SCH (08:48)
[2019-02-23] MEDS: MethylPREDNISolone 40 mg Vial IVP SCH ×2 (08:53→16:04)
[2019-02-23] MEDS: Insulin Regular 100 units/ml SC SCH ×4 (08:58→21:22)
[2019-02-23] MEDS: Sucralfate 1 gm/10 ml Oral Susp UD PO SCH ×5 (09:11→21:10)
--- NOTE | 2019-02-23 09:25 | PN ---
DATE: 02/22/2019 SUBJECTIVE: The patient seen and examined. Interim events noted. Consults noted and appreciated. Surgery followup and intervention noted and appreciated. The patient remains in progressive care unit on telemetry monitoring. The patient is sleeping, arousable, feels okay, still has abdominal pain, but is slightly better, tolerating food. No chest pain , no shortness of breath, no vomiting. PHYSICAL EXAMINATION: GENERAL: The patient is in no acute distress. VITAL SIGNS: Stable. HEART: S1 and S2. Normal and regular. LUNGS: Good bilateral air exchange. ABDOMEN: Still remains slightly distended, but no sign of acute abdomen. No guarding, no rigidity, no rebound. Bowel sounds are present and normal. Colostomy is in good position and functioning with liquidy brown stool. No blood. EXTREMITIES: No edema, no calf swelling, no tenderness. No acute ischemia. CENTRAL NERVOUS SYSTEM: Exam is essentially unchanged. DIAGNOSTIC DATA: Available diagnostic data reviewed. Telemetry monitoring does not reveal significant arrhythmias. ASSESSMENT: Palliative care and intervention noted and appreciated. Family has opted for full code at this time. PLAN: As ordered. Case and plan discussed with the patient. Gatito Mathew MD
--- NOTE | 2019-02-23 13:18 | CP.PCM.PN ---
Subjective - Date & Time of Evaluation Date of Evaluation: 02/23/19 Time of Evaluation: 12:45 - Subjective Subjective: Remains lethargic. Easily arousable ccording to the family, Pt is sleeping all the time & not eating. Family also reports that Pt is not passing as much urine. Objective - Vital Signs/Intake and Output Vital Signs (last 24 hours): Temp Pulse Resp BP Pulse Ox 97.8 F 130 H 20 112/57 L 98 02/23/19 13:00 02/23/19 13:00 02/23/19 13:00 02/23/19 13:00 02/23/19 13:00 Intake and Output: 02/23/19 02/23/19 06:59 18:59 Intake Total 650 Output Total 600 Balance 50 - Medications Medications: Current Medications Acetaminophen (Tylenol 325mg Tab) 650 mg PO Q6 [facility] Last Admin: 02/23/19 09:08 Dose: 650 mg Atorvastatin Calcium (Lipitor) 40 mg PO DAILY [facility] Last Admin: 02/23/19 08:49 Dose: 40 mg Benzocaine/Menthol (Cepacol Sore Throat) 1 alysa PO Q3 PRN PRN Reason: Sore Throat Cyclobenzaprine HCl (Flexeril) 5 mg PO Q8 [facility] Last Admin: 02/21/19 00:52 Dose: Not Given Dextrose (Dextrose 50% Inj) 0 ml IV STAT PRN; Protocol PRN Reason: Hypoglycemia Protocol Last Admin: 02/06/19 05:35 Dose: 25 ml Dextrose (Glutose 15) 0 gm PO ONCE PRN; Protocol PRN Reason: Hypoglycemia Protocol Digoxin (Lanoxin) 0.125 mg IVP DAILY [facility] Last Admin: 02/23/19 08:43 Dose: 0.125 mg Dimethicone (Proshield Plus Skin Protectant) 1 applic TOP Q8 PRN PRN Reason: derm Last Admin: 02/14/19 09:50 Dose: 1 applic Ergocalciferol (Drisdol 50,000 Intl Units Cap) 1 cap PO FR [facility] Last Admin: 02/22/19 16:04 Dose: 1 cap Fluticasone Propionate (Flonase) 2 spr PRIYA DAILY [facility] Last Admin: 02/23/19 08:57 Dose: 2 spr Glucagon (Glucagen Diagnostic Kit) 0 mg IM STAT PRN; Protocol PRN Reason: Hypoglycemia Protocol Hydromorphone HCl (Dilaudid) 1 mg IVP Q4 PRN PRN Reason: Pain, severe (8-10) Last Admin: 02/23/19 00:55 Dose: 1 mg Iron Sucrose 100 mg/ Sodium (Chloride) 105 mls @ 105 mls/hr IVPB DAILY [facility] Last Admin: 02/12/19 12:07 Dose: 105 mls/hr Dextrose/Sodium Chloride (Dextrose 5%/0.45% Ns 1000 Ml) 1,000 mls @ 50 mls/hr IV .Q20H [facility] Stop: 02/23/19 17:50 Last Admin: 02/22/19 18:11 Dose: 50 mls/hr Insulin Human Regular (Humulin R) 0 units SC ACHS [facility]; Protocol Last Admin: 02/23/19 12:55 Dose: Not Given Lidocaine (Lidoderm) 1 ea TD DAILY [facility] Last Admin: 02/23/19 08:48 Dose: 1 ea Memantine (Namenda) 10 mg PO BID [facility] Last Admin: 02/23/19 08:50 Dose: 10 mg Mesalamine (Rowasa Enema) 4 gm RC [facility] Last Admin: 02/22/19 21:22 Dose: Not Given Methylprednisolone (Solu-Medrol) 10 mg IVP BID [facility] Last Admin: 02/23/19 08:53 Dose: 10 mg Metoprolol Tartrate (Lopressor) 2.5 mg IVP Q3 [facility] Last Admin: 02/23/19 12:56 Dose: 2.5 mg Ondansetron HCl (Zofran Inj) 4 mg IVP Q4 PRN PRN Reason: Nausea/Vomiting Last Admin: 02/22/19 15:57 Dose: 4 mg Oxycodone HCl (Oxycodone Immediate Release Tab) 5 mg PO Q6 PRN PRN Reason: Pain, moderate (4-7) Sennosides (Senokot Tab) 17.2 mg PO HS [facility] Last Admin: 02/22/19 21:22 Dose: Not Given Sitagliptin Phosphate (Januvia) 25 mg PO DAILY [facility] Last Admin: 02/23/19 08:58 Dose: 25 mg Sucralfate (Carafate Oral Susp) 1 gm PO QID [facility] Last Admin: 02/23/19 12:55 Dose: 1 gm Tamsulosin HCl (Flomax) 0.4 mg PO DAILY [facility] Last Admin: 02/23/19 08:57 Dose: 0.4 mg - Labs Labs: 02/23/19 04:25 02/23/19 04:25 PT 12.8 Seconds (9.8-13.1) 02/14/19 10:00 INR 1.1 02/14/19 10:00 APTT 30.6 Seconds (25.6-37.1) 02/14/19 10:00 - Constitutional Appears: Confused, Other - Head Exam Head Exam: ATRAUMATIC, NORMOCEPHALIC - Eye Exam Eye Exam: Normal appearance - ENT Exam ENT Exam: Mucous Membranes Moist - Neck Exam Additional comments: Neck supple - Respiratory Exam Respiratory Exam: Clear to Ausculation Bilateral, NORMAL BREATHING PATTERN - Cardiovascular Exam Additional comments: A. fib 105/ min - GI/Abdominal Exam GI & Abdominal Exam: Soft Additional comments: Drain in place - Extremities Exam Additional comments: No edema Assessment and Plan - Assessment and Plan (Free Text) Assessment: Acute on chronic renal failure due to prerenal azotemia secondary to poor oral intake & increase amount of drainage from colostomy drain. Urine output is decreasing. Suggest to increase IVFs Lethargy. Suggest to re evaluate centrally acting meds New onset of A.fib S/P transverse colostomy for severe colonic stricture Hx/o UC, GI bleed Plan: Increase D5W/o.45 % NS tp 100 cc/hr Monitor UO. [place] catheter is ordered Avoid any potentially nephrotoxic meds
[2019-02-23] MEDS: Dextrose 5%/0.9% NS 1,000 ML IV SCH (15:47)
[2019-02-24] MEDS: Dextrose 5%/0.9% NS 1,000 ML IV SCH (00:53)
[2019-02-24] MEDS: Metoprolol 1 mg/ml Inj IVP SCH ×6 (00:55→17:32)
[2019-02-24 06:39] LABS: MEAN CELL VOLUME 85.4 fl (80.0-94.0); MEAN CORPUSCULAR HEMOGLOBIN 26.8 pg (27.0-31.0); MEAN CORPUSCULAR HGB CONC 31.4 g/dL (33.0-37.0); RBC 3.72 Mil/uL (4.40-5.90); RED CELL DISTRIBUTION WIDTH 22.2 % (11.5-14.5); WHITE BLOOD COUNT 5.4 K/uL (4.8-10.8)
[2019-02-24 06:47] LABS: ALB/GLOB RATIO 0.7 (1.0-2.1); ALBUMIN 1.8 g/dL (3.5-5.0); CALCIUM 7.3 mg/dL (8.4-10.2)
[2019-02-24] MEDS: Insulin Regular 100 units/ml SC SCH ×4 (07:21→22:28)
[2019-02-24] MEDS: Digoxin 500 mcg/2ml (0.5 mg/2ml) Inj IVP SCH (09:27)
[2019-02-24] MEDS: Sucralfate 1 gm/10 ml Oral Susp UD PO SCH ×4 (09:30→22:24)
[2019-02-24] MEDS: Lidocaine 5% Patch TD SCH (09:32)
[2019-02-24] MEDS: MethylPREDNISolone 40 mg Vial IVP SCH ×2 (09:34→19:56)
--- NOTE | 2019-02-24 09:42 | CP.PCM.PN ---
<Alexandria Green - Last Filed: 02/24/19 09:39> Subjective - Date & Time of Evaluation Date of Evaluation: 02/24/19 Time of Evaluation: 07:30 - Subjective Subjective: General Surgery: Rivera Patient seen and examined this am at bedside. Noacute vents overnight per nursing. No complaints at this time. Ostomy pink patent and productive pt endorses BM and flatus from rectum. no f/c, n/v. Jony 40cc x 24 hrs. Objective - Vital Signs/Intake and Output Vital Signs (last 24 hours): Temp Pulse Resp BP Pulse Ox 97.6 F 99 H 20 97/51 L 95 02/24/19 08:24 02/24/19 08:24 02/24/19 08:24 02/24/19 08:24 02/24/19 08:24 Intake and Output: 02/24/19 02/24/19 06:59 18:59 Intake Total 1200 Output Total 240 Balance 960 - Medications Medications: Current Medications Acetaminophen (Tylenol 325mg Tab) 650 mg PO Q6 [facility] Last Admin: 02/24/19 04:44 Dose: 650 mg Atorvastatin Calcium (Lipitor) 40 mg PO DAILY [facility] Last Admin: 02/24/19 09:32 Dose: 40 mg Benzocaine/Menthol (Cepacol Sore Throat) 1 alysa PO Q3 PRN PRN Reason: Sore Throat Cyclobenzaprine HCl (Flexeril) 5 mg PO Q8 [facility] Last Admin: 02/21/19 00:52 Dose: Not Given Dextrose (Dextrose 50% Inj) 0 ml IV STAT PRN; Protocol PRN Reason: Hypoglycemia Protocol Last Admin: 02/06/19 05:35 Dose: 25 ml Dextrose (Glutose 15) 0 gm PO ONCE PRN; Protocol PRN Reason: Hypoglycemia Protocol Digoxin (Lanoxin) 0.125 mg IVP DAILY [facility] Last Admin: 02/24/19 09:27 Dose: 0.125 mg Dimethicone (Proshield Plus Skin Protectant) 1 applic TOP Q8 PRN PRN Reason: derm Last Admin: 02/14/19 09:50 Dose: 1 applic Ergocalciferol (Drisdol 50,000 Intl Units Cap) 1 cap PO FR [facility] Last Admin: 02/22/19 16:04 Dose: 1 cap Fluticasone Propionate (Flonase) 2 spr PRIYA DAILY [facility] Last Admin: 02/24/19 09:29 Dose: 2 spr Glucagon (Glucagen Diagnostic Kit) 0 mg IM STAT PRN; Protocol PRN Reason: Hypoglycemia Protocol Hydromorphone HCl (Dilaudid) 1 mg IVP Q4 PRN PRN Reason: Pain, severe (8-10) Last Admin: 02/23/19 00:55 Dose: 1 mg Iron Sucrose 100 mg/ Sodium (Chloride) 105 mls @ 105 mls/hr IVPB DAILY [facility] Last Admin: 02/12/19 12:07 Dose: 105 mls/hr Dextrose/Sodium Chloride (Dextrose 5%/0.9% Ns 1000 Ml) 1,000 mls @ 100 mls/hr IV .Q10H [facility] Stop: 02/24/19 13:40 Last Admin: 02/24/19 00:53 Dose: 100 mls/hr Insulin Human Regular (Humulin R) 0 units SC ACHS [facility]; Protocol Last Admin: 02/24/19 07:21 Dose: Not Given Lidocaine (Lidoderm) 1 ea TD DAILY [facility] Last Admin: 02/24/19 09:32 Dose: 1 ea Memantine (Namenda) 10 mg PO BID [facility] Last Admin: 02/24/19 09:31 Dose: 10 mg Mesalamine (Rowasa Enema) 4 gm RC HS [facility] Last Admin: 02/23/19 21:12 Dose: Not Given Methylprednisolone (Solu-Medrol) 10 mg IVP BID [facility] Last Admin: 02/24/19 09:34 Dose: 10 mg Metoprolol Tartrate (Lopressor) 2.5 mg IVP Q3 [facility] Last Admin: 02/24/19 06:55 Dose: 2.5 mg Ondansetron HCl (Zofran Inj) 4 mg IVP Q4 PRN PRN Reason: Nausea/Vomiting Last Admin: 02/22/19 15:57 Dose: 4 mg Oxycodone HCl (Oxycodone Immediate Release Tab) 5 mg PO Q6 PRN PRN Reason: Pain, moderate (4-7) Sennosides (Senokot Tab) 17.2 mg PO HS [facility] Last Admin: 02/23/19 21:12 Dose: 17.2 mg Sitagliptin Phosphate (Januvia) 25 mg PO DAILY [facility] Last Admin: 02/24/19 09:31 Dose: 25 mg Sucralfate (Carafate Oral Susp) 1 gm PO QID [facility] Last Admin: 02/24/19 09:30 Dose: 1 gm Tamsulosin HCl (Flomax) 0.4 mg PO DAILY [facility] Last Admin: 02/24/19 09:29 Dose: 0.4 mg - Labs Labs: 02/24/19 05:00 02/24/19 05:00 PT 12.8 Seconds (9.8-13.1) 02/14/19 10:00 INR 1.1 02/14/19 10:00 APTT 30.6 Seconds (25.6-37.1) 02/14/19 10:00 - Constitutional Appears: Well, Non-toxic, No Acute Distress - Head Exam Head Exam: ATRAUMATIC, NORMOCEPHALIC - Eye Exam Eye Exam: EOMI - ENT Exam ENT Exam: Mucous Membranes Moist - Respiratory Exam Respiratory Exam: NORMAL BREATHING PATTERN - Cardiovascular Exam Cardiovascular Exam: REGULAR RHYTHM - GI/Abdominal Exam GI & Abdominal Exam: Soft, Tenderness (LLQ at drain site, appropriate). absent: Guarding, Rebound - Extremities Exam Extremities Exam: absent: Calf Tenderness, Pedal Edema - Neurological Exam Neurological Exam: Alert, Awake - Psychiatric Exam Psychiatric exam: Normal Affect, Normal Mood - Skin Skin Exam: Dry, Intact, Normal Color, Warm Additional comments: ostomy pink patent and productive of stool, drain site cllean and dry, drain removed, dressing placed Assessment and Plan - Assessment and Plan (Free Text) Assessment: 78 year old male with rectal stricture, POD#6 lap hand assist transverse colostomy Plan: - advance diet as tolerated - c/s GI; all recs appreciated - Pain control - Monitor colostomy output - replete lytes PRN - jony drain removed, well tolerated - no further surgical intervention at this time - please reconsult as needed - Further recommendations as per Dr. Rivera <Jp Del Cid - Last Filed: 02/26/19 07:41> Objective - Vital Signs/Intake and Output Vital Signs (last 24 hours): Temp Pulse Resp BP Pulse Ox 99.1 F 130 H 24 120/56 L 95 02/26/19 04:00 02/26/19 07:00 02/26/19 07:00 02/26/19 07:00 02/26/19 07:00 Intake and Output: 02/26/19 02/26/19 06:59 18:59 Intake Total 5618 Output Total 1962 Balance 3656 - Medications Medications: Current Medications Acetaminophen (Tylenol 650 Mg Supp) 650 mg [place] Q6 PRN PRN Reason: Fever >100.4 F Last Admin: 02/26/19 00:29 Dose: 650 mg Albuterol/Ipratropium (Duoneb 3 Mg/0.5 Mg (3 Ml) Ud) 3 ml INH RQ6 [facility] Last Admin: 02/26/19 01:33 Dose: 3 ml Atorvastatin Calcium (Lipitor) 40 mg PO DAILY [facility] Last Admin: 02/25/19 10:25 Dose: Not Given Dextrose (Glutose 15) 0 gm PO ONCE PRN; Protocol PRN Reason: Hypoglycemia Protocol Dextrose (Dextrose 50% Inj) 0 ml IV Q1H PRN; Protocol PRN Reason: Hypoglycemia Protocol Last Admin: 02/26/19 06:21 Dose: 50 ml Dextrose (Dextrose 50% Inj) 50 ml IVP Q1H PRN PRN Reason: Other Dimethicone (Proshield Plus Skin Protectant) 1 applic TOP Q8 PRN PRN Reason: derm Last Admin: 02/14/19 09:50 Dose: 1 applic Ergocalciferol (Drisdol 50,000 Intl Units Cap) 1 cap PO FR [facility] Last Admin: 02/22/19 16:04 Dose: 1 cap Glucagon (Glucagen Diagnostic Kit) 0 mg IM STAT PRN; Protocol PRN Reason: Hypoglycemia Protocol Hydrocortisone Sodium Succinate (Solu-Cortef) 100 mg IV Q8 [facility] Last Admin: 02/26/19 00:02 Dose: 100 mg Iron Sucrose 100 mg/ Sodium (Chloride) 105 mls @ 105 mls/hr IVPB DAILY [facility] Last Admin: 02/12/19 12:07 Dose: 105 mls/hr Metronidazole (Flagyl 500mg/100ml Ns) 100 mls @ 100 mls/hr IVPB Q8 [facility]; Protocol Last Admin: 02/26/19 00:14 Dose: 100 mls/hr Linezolid (Zyvox 600mg/300ml D5w) 600 mg in 300 mls @ 300 mls/hr IVPB Q12 [facility]; Protocol Last Admin: 02/25/19 20:42 Dose: 300 mls/hr Amiodarone HCl 450 mg/ Sodium (Chloride) 259 mls @ 17.27 mls/hr IVPB .Q15H [facility]; Protocol Last Admin: 02/26/19 06:08 Dose: Not Given Aztreonam 1 gm/ Sodium (Chloride) 100 mls @ 100 mls/hr IVPB Q8H [facility]; Protocol Last Admin: 02/26/19 00:10 Dose: 100 mls/hr Vasopressin 100 units/ Sodium (Chloride) 105 mls @ 2.52 mls/hr IV .Q24H [facility]; Protocol Last Admin: 02/25/19 15:12 Dose: 0.04 units/min, 2.52 mls/hr Dexmedetomidine HCl 400 mcg/ (Sodium Chloride) 100 mls @ 3.52 mls/hr IV .Q24H [facility]; Protocol Stop: 02/26/19 13:01 Last Titration: 02/25/19 16:11 Dose: 0 mcg/kg/hr, 0 mls/hr Norepinephrine Bitartrate 16 (mg/ Dextrose) 266 mls @ 14.96 mls/hr IV .[id number] [facility]; Protocol Stop: 02/26/19 09:47 Last Titration: 02/25/19 21:48 Dose: 10 mcg/min, 9.98 mls/hr Sodium Bicarbonate 150 meq/ (Dextrose) 1,150 mls @ 150 mls/hr IV .Q7H40M [facility] Stop: 02/26/19 21:53 Last Admin: 02/26/19 06:07 Dose: 150 mls/hr Sodium Chloride (Sodium Chloride 0.9%) 1,000 mls @ 1,000 mls/hr IV .Q1H [facility] Stop: 02/27/19 03:00 Last Admin: 02/26/19 03:51 Dose: 1,000 mls/hr Insulin Human Regular (Humulin R) 0 units SC ACHS [facility]; Protocol Last Admin: 02/25/19 21:15 Dose: Not Given Lidocaine (Lidoderm) 1 ea TD DAILY [facility] Last Admin: 02/25/19 10:32 Dose: 1 ea Memantine (Namenda) 10 mg PO BID [facility] Last Admin: 02/25/19 16:16 Dose: Not Given Ondansetron HCl (Zofran Inj) 4 mg IVP Q4 PRN PRN Reason: Nausea/Vomiting Last Admin: 02/22/19 15:57 Dose: 4 mg Sucralfate (Carafate Oral Susp) 1 gm PO QID [facility] Last Admin: 02/25/19 21:20 Dose: 1 gm Tamsulosin HCl (Flomax) 0.4 mg PO DAILY [facility] Last Admin: 02/25/19 10:25 Dose: Not Given Vancomycin HCl (Vancocin (Oral/Rectal Use)) 500 mg PO Q6 [facility]; Protocol Last Admin: 02/26/19 03:52 Dose: 500 mg - Labs Labs: 02/26/19 05:01 02/26/19 05:01 PT 22.6 Seconds (9.8-13.1) H 02/26/19 05:01 INR 2.0 02/26/19 05:01 APTT 102.8 Seconds (25.6-37.1) H 02/26/19 05:01 Assessment and Plan - Assessment and Plan (Free Text) Plan: All medical record entries made by the resident were at my direction. I have reviewed the chart and agree that the record accurately reflects my personal performance of the history, physical exam, and medical decision making.
[2019-02-24] MEDS ORDERED: Sodium Chloride 0.9% 500 ML IV ONE (10:05)
--- NOTE | 2019-02-24 11:11 | CP.PCM.PN ---
Subjective - Date & Time of Evaluation Date of Evaluation: 02/24/19 Time of Evaluation: 11:00 - Subjective Subjective: patient transferred to ICU due to hypotension. currently in rapid atrial fibrillation Objective - Vital Signs/Intake and Output Vital Signs (last 24 hours): Temp Pulse Resp BP Pulse Ox 97.6 F 134 H 20 92/58 L 95 02/24/19 08:24 02/24/19 09:44 02/24/19 08:24 02/24/19 09:44 02/24/19 08:24 Intake and Output: 02/24/19 02/24/19 06:59 18:59 Intake Total 1200 Output Total 240 Balance 960 - Medications Medications: Current Medications Acetaminophen (Tylenol 325mg Tab) 650 mg PO Q6 [facility] Last Admin: 02/24/19 10:19 Dose: Not Given Atorvastatin Calcium (Lipitor) 40 mg PO DAILY [facility] Last Admin: 02/24/19 10:56 Dose: Not Given Benzocaine/Menthol (Cepacol Sore Throat) 1 alysa PO Q3 PRN PRN Reason: Sore Throat Cyclobenzaprine HCl (Flexeril) 5 mg PO Q8 [facility] Last Admin: 02/21/19 00:52 Dose: Not Given Dextrose (Dextrose 50% Inj) 0 ml IV STAT PRN; Protocol PRN Reason: Hypoglycemia Protocol Last Admin: 02/06/19 05:35 Dose: 25 ml Dextrose (Glutose 15) 0 gm PO ONCE PRN; Protocol PRN Reason: Hypoglycemia Protocol Digoxin (Lanoxin) 0.125 mg IVP DAILY [facility] Last Admin: 02/24/19 09:27 Dose: 0.125 mg Dimethicone (Proshield Plus Skin Protectant) 1 applic TOP Q8 PRN PRN Reason: derm Last Admin: 02/14/19 09:50 Dose: 1 applic Ergocalciferol (Drisdol 50,000 Intl Units Cap) 1 cap PO FR [facility] Last Admin: 02/22/19 16:04 Dose: 1 cap Fluticasone Propionate (Flonase) 2 spr PRIYA DAILY [facility] Last Admin: 02/24/19 09:29 Dose: 2 spr Glucagon (Glucagen Diagnostic Kit) 0 mg IM STAT PRN; Protocol PRN Reason: Hypoglycemia Protocol Hydromorphone HCl (Dilaudid) 1 mg IVP Q4 PRN PRN Reason: Pain, severe (8-10) Last Admin: 02/23/19 00:55 Dose: 1 mg Iron Sucrose 100 mg/ Sodium (Chloride) 105 mls @ 105 mls/hr IVPB DAILY [facility] Last Admin: 02/12/19 12:07 Dose: 105 mls/hr Dextrose/Sodium Chloride (Dextrose 5%/0.9% Ns 1000 Ml) 1,000 mls @ 100 mls/hr IV .Q10H [facility] Stop: 02/24/19 13:40 Last Admin: 02/24/19 00:53 Dose: 100 mls/hr Amiodarone HCl 150 mg/ (Dextrose) 103 mls @ 618 mls/hr IVPB ONCE ONE; Protocol Stop: 02/24/19 11:15 Amiodarone HCl 900 mg/ (Dextrose) 518 mls @ 34.53 mls/hr IVPB .Q15H1M [facility]; Protocol Insulin Human Regular (Humulin R) 0 units SC ACHS [facility]; Protocol Last Admin: 02/24/19 07:21 Dose: Not Given Lidocaine (Lidoderm) 1 ea TD DAILY [facility] Last Admin: 02/24/19 09:32 Dose: 1 ea Memantine (Namenda) 10 mg PO BID [facility] Last Admin: 02/24/19 09:31 Dose: 10 mg Mesalamine (Rowasa Enema) 4 gm RC [facility] Last Admin: 02/23/19 21:12 Dose: Not Given Methylprednisolone (Solu-Medrol) 10 mg IVP BID [facility] Last Admin: 02/24/19 09:34 Dose: 10 mg Metoprolol Tartrate (Lopressor) 2.5 mg IVP Q3 [facility] Last Admin: 02/24/19 10:57 Dose: Not Given Ondansetron HCl (Zofran Inj) 4 mg IVP Q4 PRN PRN Reason: Nausea/Vomiting Last Admin: 02/22/19 15:57 Dose: 4 mg Oxycodone HCl (Oxycodone Immediate Release Tab) 5 mg PO Q6 PRN PRN Reason: Pain, moderate (4-7) Sennosides (Senokot Tab) 17.2 mg PO HS [facility] Last Admin: 02/23/19 21:12 Dose: 17.2 mg Sitagliptin Phosphate (Januvia) 25 mg PO DAILY [facility] Last Admin: 02/24/19 10:56 Dose: Not Given Sucralfate (Carafate Oral Susp) 1 gm PO QID [facility] Last Admin: 02/24/19 09:30 Dose: 1 gm Tamsulosin HCl (Flomax) 0.4 mg PO DAILY [facility] Last Admin: 02/24/19 09:29 Dose: 0.4 mg - Labs Labs: 02/24/19 05:00 02/24/19 05:00 PT 12.8 Seconds (9.8-13.1) 02/14/19 10:00 INR 1.1 02/14/19 10:00 APTT 30.6 Seconds (25.6-37.1) 02/14/19 10:00 - Constitutional Appears: Toxic - Head Exam Head Exam: NORMAL INSPECTION - Eye Exam Eye Exam: Normal appearance - ENT Exam ENT Exam: Mucous Membranes Moist - Neck Exam Neck Exam: Full ROM - Respiratory Exam Respiratory Exam: Decreased Breath Sounds - Cardiovascular Exam Cardiovascular Exam: Tachycardia, Irregular Rhythm - GI/Abdominal Exam GI & Abdominal Exam: Normal Bowel Sounds - Rectal Exam Rectal Exam: Deferred - Extremities Exam Extremities Exam: absent: Pedal Edema - Back Exam Back Exam: NORMAL INSPECTION - Neurological Exam Neurological Exam: Alert - Psychiatric Exam Psychiatric exam: Normal Affect - Skin Skin Exam: Normal Color Assessment and Plan (1) Afib Assessment & Plan: rate is rapid. options are limited. will give a bolus of amiodarone. Status: Acute
[2019-02-24] MEDS ORDERED: Amiodarone 900 MG in Dextrose 5% In Water 500 ML IVPB SCH (11:17)
[2019-02-24 11:33] LABS: ABG ALLEN TEST YES; ARTERIAL BLOOD GAS O2 SAT 95.5 % (95-98); ARTERIAL BLOOD GAS PCO2 21 mm/Hg (35-45); ARTERIAL BLOOD GAS PH 7.27 (7.35-7.45); ARTERIAL BLOOD GAS PO2 90 mm/Hg (80-100); ARTERIAL BLOOD GAS TCO2 10.2 mmol/L (22-28)
--- NOTE | 2019-02-24 11:35 | CP.PCM.PCO ---
Physician Communication Note - Physician Communication Note Physician Communication Note: Patient transferred to ICU after tachycarrythmia, RT not able to obtain ABG Hospital Course - Lab Results Lab Results: Micro Results 02/14/19 11:35 Stool Stool Culture - Final NO SALMONELLA, SHIGELLA OR CAMPYLOBACTER ISOLATED. 02/14/19 11:35 Stool Ova and Parasite Concentrate Exam - Final Most Recent Lab Values WBC 5.4 K/uL (4.8-10.8) 02/24/19 05:00 RBC 3.72 Mil/uL (4.40-5.90) L 02/24/19 05:00 Hgb 10.0 g/dL (12.0-18.0) L 02/24/19 05:00 Hct 31.8 % (35.0-51.0) L 02/24/19 05:00 MCV 85.4 fl (80.0-94.0) 02/24/19 05:00 MCH 26.8 pg (27.0-31.0) L 02/24/19 05:00 MCHC 31.4 g/dL (33.0-37.0) L 02/24/19 05:00 RDW 22.2 % (11.5-14.5) H 02/24/19 05:00 Plt Count 118 K/uL (130-400) L 02/24/19 05:00 MPV 9.7 fl (7.2-11.7) 02/19/19 05:05 Neut % (Auto) 88.2 % (50.0-75.0) H 02/19/19 05:05 Lymph % (Auto) 10.0 % (20.0-40.0) L 02/19/19 05:05 [place] % (Auto) 1.7 % (0.0-10.0) 02/19/19 05:05 Eos % (Auto) 0.0 % (0.0-4.0) 02/19/19 05:05 Baso % (Auto) 0.1 % (0.0-2.0) 02/19/19 05:05 Neut # (Auto) 12.4 K/uL (1.8-7.0) H 02/19/19 05:05 Lymph # (Auto) 1.4 K/uL (1.0-4.3) 02/19/19 05:05 [place] # (Auto) 0.2 K/uL (0.0-0.8) 02/19/19 05:05 Eos # (Auto) 0.0 K/uL (0.0-0.7) 02/19/19 05:05 Baso # (Auto) 0.0 K/uL (0.0-0.2) 02/19/19 05:05 PT 12.8 Seconds (9.8-13.1) 02/14/19 10:00 INR 1.1 02/14/19 10:00 APTT 30.6 Seconds (25.6-37.1) 02/14/19 10:00 pCO2 33 mm/Hg (35-45) L 02/18/19 18:50 pO2 140 mm/Hg (80-100) H 02/18/19 18:50 HCO3 20.0 mmol/L (21-28) L 02/18/19 18:50 ABG pH 7.35 (7.35-7.45) 02/18/19 18:50 ABG Total CO2 19.2 mmol/L (22-28) L 02/18/19 18:50 ABG O2 Saturation 96.5 % (95-98) 02/18/19 18:50 ABG Base Excess -6.4 mmol/L (-2.0-3.0) L 02/18/19 18:50 [place] Test Yes 02/18/19 18:50 ABG Potassium 3.4 mmol/L (3.6-5.2) L 02/18/19 18:50 A-a O2 Difference 175.0 mm/Hg 02/18/19 18:50 Sodium 135.0 mmol/L (132-148) 02/18/19 18:50 Chloride 111.0 mmol/L (98-107) H 02/18/19 18:50 Glucose 158 mg/dL (75-110) H 02/18/19 18:50 Lactate 1.8 mmol/L (0.7-2.1) 02/18/19 18:50 FiO2 50.0 % 02/18/19 18:50 Sodium 148 mmol/l (132-148) 02/24/19 05:00 Potassium 3.9 MMOL/L (3.6-5.0) 02/24/19 05:00 Chloride 122 mmol/L (98-107) H 02/24/19 05:00 Carbon Dioxide 15 mmol/L (22-30) L 02/24/19 05:00 Anion Gap 15 (10-20) 02/24/19 05:00 BUN 40 mg/dl (9-20) H 02/24/19 05:00 Creatinine 2.4 mg/dl (0.8-1.5) H 02/24/19 05:00 Est GFR ( Amer) 32 02/24/19 05:00 Est GFR (Non-Af Amer) 26 02/24/19 05:00 POC Glucose (mg/dL) 93 mg/dL (65-110) 02/24/19 10:05 Random Glucose 99 mg/dL (75-110) 02/24/19 05:00 Calcium 7.3 mg/dL (8.4-10.2) L 02/24/19 05:00 Phosphorus 5.2 mg/dl (2.5-4.5) H 02/23/19 04:25 Magnesium 2.3 MG/DL (1.6-2.3) 02/23/19 04:25 Total Bilirubin 0.3 mg/dl (0.2-1.3) 02/24/19 05:00 AST 19 U/L (17-59) 02/24/19 05:00 ALT 31 U/L (21-72) 02/24/19 05:00 Alkaline Phosphatase 53 U/L (38-126) 02/24/19 05:00 Total Protein 4.5 G/DL (6.3-8.2) L 02/24/19 05:00 Albumin 1.8 g/dL (3.5-5.0) L 02/24/19 05:00 Globulin 2.7 gm/dL (2.2-3.9) 02/24/19 05:00 Albumin/Globulin Ratio 0.7 (1.0-2.1) L 02/24/19 05:00 Vitamin B12 665 pg/mL (239-931) 02/21/19 06:16 Folate 4.0 ng/mL 02/21/19 06:16 TSH 3rd Generation 0.48 mIU/ML (0.46-4.68) 02/21/19 06:16 Arterial Blood Potassium 3.4 mmol/L (3.6-5.2) L 02/18/19 18:50 Urine Color Yellow (YELLOW) 02/06/19 01:00 Urine Clarity Cloudy (Clear) 02/06/19 01:00 Urine pH 5.0 (5.0-8.0) 02/06/19 01:00 Ur Specific [place] 1.013 (1.003-1.030) 02/06/19 01:00 Urine Protein Negative mg/dL (NEGATIVE) 02/06/19 01:00 Urine Glucose (UA) Neg mg/dL (NEGATIVE) 02/06/19 01:00 Urine Ketones Negative mg/dL (NEGATIVE) 02/06/19 01:00 Urine Blood Small (NEGATIVE) 02/06/19 01:00 Urine Nitrate Negative (NEGATIVE) 02/06/19 01:00 Urine Bilirubin Negative (NEGATIVE) 02/06/19 01:00 Urine Urobilinogen 0.2-1.0 mg/dL (0.2-1.0) 02/06/19 01:00 Ur Leukocyte Esterase Neg Ab/uL (Negative) 02/06/19 01:00 Urine RBC (Auto) 4 /hpf (0-3) H 02/06/19 01:00 Urine Microscopic WBC 5 /hpf (0-5) 02/06/19 01:00 Ur Squamous Epith Cells < 1 /hpf (0-5) 02/06/19 01:00 Urine Bacteria Many (<OCC) H 02/06/19 01:00 Ur Random Creatinine 79.7 mg/dL 02/06/19 01:00 Ur Random Sodium 90 meq/L 02/06/19 01:00 Ur Random Potassium 8.4 mmol/L 02/06/19 01:00 Urine Chloride 106 mmol/L (32-290) 02/08/19 01:00 Stool Leukocytes, Qual Positive (NEGATIVE) H 02/14/19 11:35 Digoxin 1.8 ng/mL (0.8-2.0) 02/24/19 05:00 RPR Nonreactive (NONREACTIVE) 02/21/19 06:16 C. difficile Ag & Toxin Negative (NEGATIVE) 02/14/19 11:35 Giardia Antigen Not detected (Not Detected) 02/14/19 11:35 Blood Type O POSITIVE 02/18/19 12:15 Antibody Screen Negative 02/18/19 12:15 Crossmatch See Detail 02/18/19 12:15 BBK History Checked Patient has bt 02/18/19 12:15 - Hospital Course Hospital Course: Rt not able to obtain ABG from left wrist. I obtained ABG from left wrist. -ABG reveals pH 7.27 with lactic of 5.1 pCo2 21 and bicarb 13 (metabolic acidosis) -chaidez start infusion of bicarb ggt -many pending results -Central line placed. awaiting CXR -empirically on abx, -large A-a gradient, check LE dopplers -A-fib likely 2nd hypotension, cardiology input -full consult to follow. - Date & Time of H&P Date of H&P: 02/24/19 Time of H&P: 13:53
--- NOTE | 2019-02-24 12:58 | CP.PCM.PN ---
Subjective - Date & Time of Evaluation Date of Evaluation: 02/24/19 Time of Evaluation: 12:30 - Subjective Subjective: Events noted. Pt transferred to ICU for hypotension & rapid A.fib According to family Pt was more alert today & was communicative with family. Objective - Vital Signs/Intake and Output Vital Signs (last 24 hours): Temp Pulse Resp BP Pulse Ox 99.1 F 132 H 20 102/44 L 91 L 02/24/19 12:00 02/24/19 12:50 02/24/19 12:50 02/24/19 12:50 02/24/19 12:50 Intake and Output: 02/24/19 02/24/19 06:59 18:59 Intake Total 1200 Output Total 240 Balance 960 - Medications Medications: Current Medications Acetaminophen (Tylenol 325mg Tab) 650 mg PO Q6 [facility] Last Admin: 02/24/19 10:19 Dose: Not Given Atorvastatin Calcium (Lipitor) 40 mg PO DAILY [facility] Last Admin: 02/24/19 10:56 Dose: Not Given Benzocaine/Menthol (Cepacol Sore Throat) 1 alysa PO Q3 PRN PRN Reason: Sore Throat Dextrose (Dextrose 50% Inj) 0 ml IV STAT PRN; Protocol PRN Reason: Hypoglycemia Protocol Last Admin: 02/06/19 05:35 Dose: 25 ml Dextrose (Glutose 15) 0 gm PO ONCE PRN; Protocol PRN Reason: Hypoglycemia Protocol Digoxin (Lanoxin) 0.125 mg IVP DAILY [facility] Last Admin: 02/24/19 09:27 Dose: 0.125 mg Dimethicone (Proshield Plus Skin Protectant) 1 applic TOP Q8 PRN PRN Reason: derm Last Admin: 02/14/19 09:50 Dose: 1 applic Ergocalciferol (Drisdol 50,000 Intl Units Cap) 1 cap PO FR [facility] Last Admin: 02/22/19 16:04 Dose: 1 cap Fluticasone Propionate (Flonase) 2 spr PRIYA DAILY [facility] Last Admin: 02/24/19 09:29 Dose: 2 spr Glucagon (Glucagen Diagnostic Kit) 0 mg IM STAT PRN; Protocol PRN Reason: Hypoglycemia Protocol Iron Sucrose 100 mg/ Sodium (Chloride) 105 mls @ 105 mls/hr IVPB DAILY [facility] Last Admin: 02/12/19 12:07 Dose: 105 mls/hr Dextrose/Sodium Chloride (Dextrose 5%/0.9% Ns 1000 Ml) 1,000 mls @ 100 mls/hr IV .Q10H [facility] Stop: 02/24/19 13:40 Last Admin: 02/24/19 00:53 Dose: 100 mls/hr Amiodarone HCl 450 mg/ (Dextrose) 259 mls @ 34.53 mls/hr IVPB .Q7H31M [facility]; Protocol Stop: 02/24/19 18:47 Amiodarone HCl 450 mg/ (Dextrose) 259 mls @ 17.27 mls/hr IVPB .Q15H [facility]; P rotocol Stop: 02/25/19 08:29 Sodium Bicarbonate 150 meq/ (Dextrose) 1,150 mls @ 100 mls/hr IV .[id number] [facility] Stop: 02/25/19 11:35 Norepinephrine Bitartrate 4 mg (/ Dextrose) 254 mls @ 9.53 mls/hr IV .Q24H [facility]; Protocol Last Admin: 02/24/19 12:44 Dose: 2.5 mcg/min, 9.53 mls/hr Aztreonam 1 gm/ Sodium (Chloride) 100 mls @ 100 mls/hr IVPB Q12 [facility]; Protocol Metronidazole (Flagyl 500mg/100ml Ns) 100 mls @ 100 mls/hr IVPB Q8 [facility]; Protocol Insulin Human Regular (Humulin R) 0 units SC ACHS [facility]; Protocol Last Admin: 02/24/19 07:21 Dose: Not Given Lidocaine (Lidoderm) 1 ea TD DAILY [facility] Last Admin: 02/24/19 09:32 Dose: 1 ea Memantine (Namenda) 10 mg PO BID [facility] Last Admin: 02/24/19 09:31 Dose: 10 mg Mesalamine (Rowasa Enema) 4 gm RC HS [facility] Last Admin: 02/23/19 21:12 Dose: Not Given Methylprednisolone (Solu-Medrol) 10 mg IVP BID [facility] Last Admin: 02/24/19 09:34 Dose: 10 mg Metoprolol Tartrate (Lopressor) 2.5 mg IVP Q3 [facility] Last Admin: 02/24/19 10:57 Dose: Not Given Ondansetron HCl (Zofran Inj) 4 mg IVP Q4 PRN PRN Reason: Nausea/Vomiting Last Admin: 02/22/19 15:57 Dose: 4 mg Sennosides (Senokot Tab) 17.2 mg PO HS [facility] Last Admin: 02/23/19 21:12 Dose: 17.2 mg Sucralfate (Carafate Oral Susp) 1 gm PO QID [facility] Last Admin: 02/24/19 09:30 Dose: 1 gm Tamsulosin HCl (Flomax) 0.4 mg PO DAILY [facility] Last Admin: 02/24/19 09:29 Dose: 0.4 mg - Labs Labs: 02/24/19 05:00 02/24/19 05:00 PT 12.8 Seconds (9.8-13.1) 02/14/19 10:00 INR 1.1 02/14/19 10:00 APTT 30.6 Seconds (25.6-37.1) 02/14/19 10:00 - Head Exam Head Exam: ATRAUMATIC, NORMOCEPHALIC - Eye Exam Additional comments: Conjunctiva pale . No icterus - ENT Exam ENT Exam: Mucous Membranes Dry - Neck Exam Additional comments: Neck supple - Respiratory Exam Additional comments: Lungs clear. No wheezes or rhonchi - Cardiovascular Exam Additional comments: A. 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 R/o sepsis New onset of A.fib with rapid ventricular response S/P lap tranverse coloctomy Hx/o UC & GI bleed Plan: Labs reviewed. Slight increase in Creat. today & worsening of metabolic acidosis which is nonanion gap Pt is receiving Amiodorone to control rapid A.fib & is on bicarb drip Levaphed for BP support is planned Sepsis w/u Closely monitor urine out put.
[2019-02-24 13:01] LABS: PARTIAL THROMBOPLASTIN TIME 59.3 Seconds (25.6-37.1)
[2019-02-24] MEDS: Sodium Bicarbonate 8.4% 150 MEQ in Dextrose 5% In Water 1,000 ML IV SCH (13:01)
[2019-02-24 13:04] LABS: BASO % 0.1 % (0.0-2.0); HEMOGLOBIN 9.9 g/dL (12.0-18.0); LYMPH # 0.7 K/uL (1.0-4.3); LYMPH % 16.8 % (20.0-40.0); MEAN CELL VOLUME 85.5 fl (80.0-94.0); MEAN CORPUSCULAR HEMOGLOBIN 26.5 pg (27.0-31.0); MEAN PLATELET VOLUME 10.8 fl (7.2-11.7); MONO % 0.6 % (0.0-10.0); NEUT # 3.2 K/uL (1.8-7.0); NEUT % 82.5 % (50.0-75.0); NRBC % 0.1 % (0.0-0.0); PLATELET COUNT 116 K/uL (130-400); RBC 3.72 Mil/uL (4.40-5.90); RED CELL DISTRIBUTION WIDTH 23.1 % (11.5-14.5); WHITE BLOOD COUNT 3.9 K/uL (4.8-10.8)
[2019-02-24 13:16] LABS: TROPONIN I 0.056 ng/mL (0.00-0.120)
[2019-02-24 13:21] LABS: ALB/GLOB RATIO 0.8 (1.0-2.1); ALBUMIN 1.9 g/dL (3.5-5.0)
--- NOTE | 2019-02-24 13:28 | PCM.PROC ---
Procedures Attestation:: I certify that I have explained the specified Operation(s) or Procedure(s), risks, benefits and reasonable alternatives to the Patient and/or other person responsible. The opportunity was given to ask questions and all questions answered - Central Line Placement Left Internal Jugular Triple Lumen Catheter Aseptic technique was employed throughout the procedure: Full sterile barriers (mask, hair cover, sterile gown, sterile gloves), Full body sterile drape, Chlor aprep Antiseptic: 30 second prep for IJ or SC sites CVP Time Out Performed: Yes Pt. Placed on Pulse Ox Monitor: Yes Central Line Prep: Chlorhexidine-Alcohol Combination Local Anesthesia Used: Lidocaine 1% Amount of Anesthesia Used (mls): 5 Ultrasound Used for Placement: Yes Central Line Lumen Inserted: triple Central Line Length: 20 cm Post Procedure: Sutured in Place, Good Blood Return, All Ports Aspirated, Flushed, Capped, Sterile Dressing Applied Secured by: Suture Post procedure dressing: Gauze, Clear vapor permeable, Chlorhexidine disc (Biopatch) Post Procedure X-Ray: Yes Patient Tolerated Procedure: Well Immediate Complications: None
[2019-02-24] MEDS: Dextrose 50% SYRINGE Inj (50 ml) IV PRN ×3 (13:46→22:29)
[2019-02-24] MEDS: Aztreonam 1 GM in Sodium Chloride 0.9% 100 ML IVPB SCH ×2 (13:52→23:14)
[2019-02-24] MEDS: metroNIDAZOLE 500mg/100ml NS 100 ML IVPB SCH ×2 (13:54→17:31)
[2019-02-24 14:08] LABS: PROTHROMBIN TIME 50.3 Seconds (9.8-13.1)
[2019-02-24 14:09] LABS: INR 4.4
[2019-02-24] MEDS ORDERED: Desmopressin 4 mcg/ml Inj (10 ml) IV ONE (14:28)
--- NOTE | 2019-02-24 14:50 | RAD ---
Date of service: 02/24/2019 PROCEDURE: CHEST RADIOGRAPH, 1 VIEW HISTORY: central line placement COMPARISON: 02/14/2019 FINDINGS: LUNGS: New left internal jugular vein CVP is noted with its tip in the superior vena cava region. No pneumothorax is seen. There is moderate eventration of the right hemidiaphragm. Lucency overlying this region may reflect some interval improvement in aeration or some aerated bowel. Gastric distention is also appreciated. Mild subsegmental atelectasis and small effusions are suspected. Vasculature is mildly congested. There is also a previously noted right PICC line with its tip in the superior vena cava. PLEURA: See above. CARDIOVASCULAR: Stable mild aortic atherosclerotic calcification present. OSSEOUS STRUCTURES: No significant abnormalities. VISUALIZED UPPER ABDOMEN: Normal. OTHER FINDINGS: None. IMPRESSION: Status post left internal jugular vein CVP. No pneumothorax. Stable right PICC line placement. Distended gastric air bubble. Mild improvement aeration at the right lung base. Small effusions.
--- NOTE | 2019-02-24 15:08 | CP.PCM.CON ---
History of Present Illness - History of Present Illness History of Present Illness: 78 y/o male with PMH of Ulcerative colitis, HTN, Bladder Ca, Dementia, diabeted and CVA in 2007, A-fib on anticoagulation admitted to [facility]. No recent blood work before rapid response and transferred to ICU. Patient not able to provide any history 2nd low BP. Please see recent PMD adn research consultant noted for events leading to ICU trasnfer. -Patient's lab reveals gradual increase in creatinine for 2 days. tachycardia with h/o A-fib, no AC upon evaluation. PMH: Ulcerative colitis, Hypotension, Bladder Ca, Dementia, prediabetes and CVA in 2007 PSH: Denies Allg: PNC SH: Denies alcohol, smoking or drug use SH: unknown Source: Previous EMR Review of Systems - Review of Systems Systems not reviewed;Unavailable: Respiratory Distress, Altered Mental Status Past Patient History - Tetanus Immunizations Tetanus Immunization: Unknown - Past Medical History & Family History Past Medical History?: Yes Past Family History: Reviewed and not pertinent - Past Social History Smoking Status: Never Smoked Chewing Tobacco Use: No Cigar Use: No Alcohol: None Drugs: Denies Home Situation {Lives}: Other - CARDIAC Hx Cardiac Disorders: Yes Hx Hypercholesterolemia: Yes Hx Hypertension: Yes - PULMONARY Hx Respiratory Disorders: No - NEUROLOGICAL HX Cerebrovascular Accident: Yes - HEENT Hx HEENT Problems: No - RENAL Hx Chronic Kidney Disease: No - ENDOCRINE/METABOLIC Hx Diabetes Mellitus Type 2: Yes - HEMATOLOGICAL/ONCOLOGICAL Hx Blood Disorders: Yes Hx Anemia: Yes Hx Human Immunodeficiency Virus (HIV): No - INTEGUMENTARY Hx Dermatological Problems: No - MUSCULOSKELETAL/RHEUMATOLOGICAL Hx Musculoskeletal Disorders: Yes Hx Falls: Yes (4 months) Hx Gout: Yes Hx Unsteady Gait: Yes (post CVA) - GASTROINTESTINAL Hx Gastrointestinal Disorders: Yes Hx Colitis: Yes (chronic) Hx Gastroesophageal Reflux: Yes HX Swallowing Problems: Yes (current complaint) - GENITOURINARY/GYNECOLOGICAL Hx Genitourinary Disorders: Yes Hx Bladder Cancer: Yes Hx Hematuria: Yes Other/Comment: HX: URINARY FREQUENCY - PSYCHIATRIC Hx Psychophysiologic Disorder: No Hx Substance Use: No - SURGICAL HISTORY Hx Surgeries: Yes Other/Comment: HX: BLADDER CANCER TURBT. HX: NEPHROURETERECTOMY 2014. HX: CYSTOSCOPY WITH BLADDER BIOPSY AND FULGURATION(08/20/18) - ANESTHESIA Hx Anesthesia: Yes Hx Anesthesia Reactions: No Hx Malignant Hyperthermia: No Meds Allergies/Adverse Reactions: Allergies Allergy/AdvReac Type Severity Reaction Status Date / Time Penicillins Allergy RASH Verified 01/28/19 13:34 - Medications Medications: Current Medications Acetaminophen (Tylenol 325mg Tab) 650 mg PO Q6 JOVANNY Last Admin: 02/24/19 10:19 Dose: Not Given Atorvastatin Calcium (Lipitor) 40 mg PO DAILY JOVANNY Last Admin: 02/24/19 10:56 Dose: Not Given Dextrose (Dextrose 50% Inj) 0 ml IV STAT PRN; Protocol PRN Reason: Hypoglycemia Protocol Last Admin: 02/24/19 13:46 Dose: 50 ml Dextrose (Glutose 15) 0 gm PO ONCE PRN; Protocol PRN Reason: Hypoglycemia Protocol Dimethicone (Proshield Plus Skin Protectant) 1 applic TOP Q8 PRN PRN Reason: derm Last Admin: 02/14/19 09:50 Dose: 1 applic Ergocalciferol (Drisdol 50,000 Intl Units Cap) 1 cap PO FR JOVANNY Last Admin: 02/22/19 16:04 Dose: 1 cap Glucagon (Glucagen Diagnostic Kit) 0 mg IM STAT PRN; Protocol PRN Reason: Hypoglycemia Protocol Iron Sucrose 100 mg/ Sodium (Chloride) 105 mls @ 105 mls/hr IVPB DAILY [facility] Last Admin: 02/12/19 12:07 Dose: 105 mls/hr Amiodarone HCl 450 mg/ (Dextrose) 259 mls @ 34.53 mls/hr IVPB .[id number] JOVANNY; Protocol Stop: 02/24/19 18:47 Last Admin: 02/24/19 13:11 Dose: 34.53 mls/hr Amiodarone HCl 450 mg/ (Dextrose) 259 mls @ 17.27 mls/hr IVPB .Q15H JOVANNY; Pro tocol Stop: 02/25/19 08:29 Sodium Bicarbonate 150 meq/ (Dextrose) 1,150 mls @ 100 mls/hr IV .[id number] JOVANNY Stop: 02/25/19 11:35 Last Admin: 02/24/19 13:01 Dose: 100 mls/hr Norepinephrine Bitartrate 4 mg (/ Dextrose) 254 mls @ 9.53 mls/hr IV .Q24H JOVANNY; Protocol Last Admin: 02/24/19 12:44 Dose: 2.5 mcg/min, 9.53 mls/hr Aztreonam 1 gm/ Sodium (Chloride) 100 mls @ 100 mls/hr IVPB Q12 [facility]; Protocol Last Admin: 02/24/19 13:52 Dose: 100 mls/hr Metronidazole (Flagyl 500mg/100ml Ns) 100 mls @ 100 mls/hr IVPB Q8 [facility]; Protocol Last Admin: 02/24/19 13:54 Dose: 100 mls/hr Desmopressin Acetate 21 mcg/ (Sodium Chloride) 55.25 mls @ 110.5 mls/hr IVPB ONCE ONE Stop: 02/24/19 15:29 Insulin Human Regular (Humulin R) 0 units SC ACHS [facility]; Protocol Last Admin: 02/24/19 13:22 Dose: Not Given Lidocaine (Lidoderm) 1 ea TD DAILY [facility] Last Admin: 02/24/19 09:32 Dose: 1 ea Memantine (Namenda) 10 mg PO BID [facility] Last Admin: 02/24/19 09:31 Dose: 10 mg Mesalamine (Rowasa Enema) 4 gm RC [facility] Last Admin: 02/23/19 21:12 Dose: Not Given Methylprednisolone (Solu-Medrol) 10 mg IVP BID [facility] Last Admin: 02/24/19 09:34 Dose: 10 mg Metoprolol Tartrate (Lopressor) 2.5 mg IVP Q3 [facility] Last Admin: 02/24/19 13:23 Dose: Not Given Ondansetron HCl (Zofran Inj) 4 mg IVP Q4 PRN PRN Reason: Nausea/Vomiting Last Admin: 02/22/19 15:57 Dose: 4 mg Sennosides (Senokot Tab) 17.2 mg PO [facility] Last Admin: 02/23/19 21:12 Dose: 17.2 mg Sucralfate (Carafate Oral Susp) 1 gm PO QID [facility] Last Admin: 02/24/19 13:22 Dose: Not Given Tamsulosin HCl (Flomax) 0.4 mg PO DAILY [facility] Last Admin: 02/24/19 09:29 Dose: 0.4 mg Physical Exam - Head Exam Head Exam: ATRAUMATIC, NORMAL INSPECTION, NORMOCEPHALIC - ENT Exam ENT Exam: Mucous Membranes Dry - Respiratory Exam Respiratory Exam: Decreased Breath Sounds, NORMAL BREATHING PATTERN. absent: Chest Wall Tenderness, Rales, Wheezes - Cardiovascular Exam Cardiovascular Exam: Tachycardia, Irregular Rhythm, +S1, +S2 - GI/Abdominal Exam GI & Abdominal Exam: Normal Bowel Sounds. absent: Guarding, Hernia, Hyperactive Bowel Sounds, Hypoactive Bowel Sounds - Extremities Exam Extremities exam: Positive for: normal capillary refill - Neurological Exam Neurological exam: Alert - Skin Skin Exam: Warm Results - Vital Signs Recent Vital Signs: Last Vital Signs Temp 99.1 F 02/24/19 12:00 Pulse 133 H 02/24/19 14:00 Resp 20 02/24/19 14:00 BP 101/65 02/24/19 14:00 Pulse Ox 100 02/24/19 14:00 - Labs Result Diagrams: 02/24/19 12:40 02/24/19 12:40 Labs: Laboratory Results - last 24 hr 02/23/19 02/23/19 02/24/19 16:05 20:51 05:00 WBC 5.4 RBC 3.72 L Hgb 10.0 L Hct 31.8 L MCV 85.4 MCH 26.8 L MCHC 31.4 L RDW 22.2 H Plt Count 118 L MPV Neut % (Auto) Lymph % (Auto) [place] % (Auto) Eos % (Auto) Baso % (Auto) Neut # (Auto) Lymph # (Auto) [place] # (Auto) Eos # (Auto) Baso # (Auto) PT INR APTT pCO2 pO2 HCO3 ABG pH ABG Total CO2 ABG O2 Saturation ABG Base Excess [place] Test ABG Potassium A-a O2 Difference Glucose Lactate Vent Mode FiO2 Crit Value Called To Crit Value Called By Crit Value Read Back Blood Gas Notified Time Sodium Potassium Chloride Carbon Dioxide Anion Gap BUN Creatinine Est GFR ( Amer) Est GFR (Non-Af Amer) POC Glucose (mg/dL) 104 108 Random Glucose Calcium Phosphorus Magnesium Total Bilirubin AST ALT Alkaline Phosphatase Troponin I NT-Pro-B Natriuret Pep Total Protein Albumin Globulin Albumin/Globulin Ratio Arterial Blood Potassium Digoxin 02/24/19 02/24/19 02/24/19 05:00 05:00 05:51 WBC RBC Hgb Hct MCV MCH MCHC RDW Plt Count MPV Neut % (Auto) Lymph % (Auto) [place] % (Auto) Eos % (Auto) Baso % (Auto) Neut # (Auto) Lymph # (Auto) [place] # (Auto) Eos # (Auto) Baso # (Auto) PT INR APTT pCO2 pO2 HCO3 ABG pH ABG Total CO2 ABG O2 Saturation ABG Base Excess [place] Test ABG Potassium A-a O2 Difference Glucose Lactate Vent Mode FiO2 Crit Value Called To Crit Value Called By Crit Value Read Back Blood Gas Notified Time Sodium 148 Potassium 3.9 Chloride 122 H Carbon Dioxide 15 L Anion Gap 15 BUN 40 H Creatinine 2.4 H Est GFR ( Amer) 32 Est GFR (Non-Af Amer) 26 POC Glucose (mg/dL) 89 Random Glucose 99 Calcium 7.3 L Phosphorus Magnesium Total Bilirubin 0.3 AST 19 ALT 31 Alkaline Phosphatase 53 Troponin I NT-Pro-B Natriuret Pep Total Protein 4.5 L Albumin 1.8 L Globulin 2.7 Albumin/Globulin Ratio 0.7 L Arterial Blood Potassium Digoxin 1.8 02/24/19 02/24/19 02/24/19 10:05 11:29 12:40 WBC 3.9 L RBC 3.72 L Hgb 9.9 L Hct 31.8 L MCV 85.5 MCH 26.5 L MCHC 31.0 L RDW 23.1 H Plt Count 116 L MPV 10.8 Neut % (Auto) 82.5 H Lymph % (Auto) 16.8 L [place] % (Auto) 0.6 Eos % (Auto) 0.0 Baso % (Auto) 0.1 Neut # (Auto) 3.2 Lymph # (Auto) 0.7 L [place] # (Auto) 0.0 Eos # (Auto) 0.0 Baso # (Auto) 0.0 PT INR APTT pCO2 21 L pO2 90 HCO3 13.0 L ABG pH 7.27 L ABG Total CO2 10.2 L ABG O2 Saturation 95.5 ABG Base Excess -15.2 L [place] Test Yes ABG Potassium 4.1 A-a O2 Difference 597.0 Glucose 88 Lactate 5.1 H* Vent Mode Nrm FiO2 100.0 Crit Value Called To Dr trevor aguero Crit Value Called By 6004 Crit Value Read Back Y Blood Gas Notified Time 1133 Sodium 146.0 Potassium Chloride 119.0 H Carbon Dioxide Anion Gap BUN Creatinine Est GFR ( Amer) Est GFR (Non-Af Amer) POC Glucose (mg/dL) 93 Random Glucose Calcium Phosphorus Magnesium Total Bilirubin AST ALT Alkaline Phosphatase Troponin I NT-Pro-B Natriuret Pep Total Protein Albumin Globulin Albumin/Globulin Ratio Arterial Blood Potassium 4.1 Digoxin 02/24/19 02/24/19 02/24/19 12:40 12:40 12:40 WBC RBC Hgb Hct MCV MCH MCHC RDW Plt Count MPV Neut % (Auto) Lymph % (Auto) [place] % (Auto) Eos % (Auto) Baso % (Auto) Neut # (Auto) Lymph # (Auto) [place] # (Auto) Eos # (Auto) Baso # (Auto) PT 50.3 H* INR 4.4 APTT 59.3 H pCO2 pO2 HCO3 ABG pH ABG Total CO2 ABG O2 Saturation ABG Base Excess [place] Test ABG Potassium A-a O2 Difference Glucose Lactate Vent Mode FiO2 Crit Value Called To Crit Value Called By Crit Value Read Back Blood Gas Notified Time Sodium 148 Potassium 4.1 Chloride 124 H Carbon Dioxide 11 L* D Anion Gap 17 BUN 41 H Creatinine 2.1 H Est GFR ( Amer) 37 Est GFR (Non-Af Amer) 31 POC Glucose (mg/dL) Random Glucose 75 Calcium 7.0 L Phosphorus 5.4 H Magnesium 2.2 Total Bilirubin 0.3 AST 19 ALT 26 Alkaline Phosphatase 55 Troponin I 0.0560 NT-Pro-B Natriuret Pep 11696 H Total Protein 4.4 L Albumin 1.9 L Globulin 2.5 Albumin/Globulin Ratio 0.8 L Arterial Blood Potassium Digoxin 2.2 H Assessment & Plan - Assessment and Plan (Free Text) Assessment: -Tachycardia/SVT: suspect chronic INR >2.0, rate not controlled, suspect 2nd sepsis or hypovolemia, continue rx as per cardiology -Cardiology started amiodarone, check TSH -septic shock: serial lactic, central line placed CVP -4, hypovolemia, continue bicarb ggt, start norepi to keep MAP >65 -Diarrhea/ RLL lobar atelectatiss/suspect as source of sepsis: start aztreonam + linezolid + flagyl, serial lactic first lactic clsoe to 5 -Diet: NPO, suspect aspiration -Coagulopathy: etiology unknown, no active bleeding, serial cbc, transfuse to keep hemodynamic stability -Hypoxic respiratory failure: large VQ mismatch (RLL), cannot deandre out PE, however with INR >3.0 unlikely PE, continue to mointor PTT -JESUS: etiology unknown, check US kidneys -dvt ppx: INR >2.0 -PUD ppx protonix -Prognosis guarded as multiple diagnostic tests pending -f/ui serial lactic, CXR and cultures cc time 45 minutes excluding any time spent on procedures. - Date & Time Date: 02/24/19 Time: 15:19
[2019-02-24 15:11] LABS: BANDS 10 % (0-2); LYMPHOCYTE 11 % (20-50); METAMYELOCYTE 1 % (0-0); MONOCYTE 5 % (0-10); NEUTROPHIL 73 % (42-75); PLATELET ESTIMATE DECREASED (NORMAL); TOTAL CELLS COUNTED 100
[2019-02-24 15:12] LABS: ANISOCYTOSIS SLIGHT; BURR CELLS SLIGHT; LARGE PLATELETS PRESENT; MICROCYTOSIS SLIGHT; OVALOCYTES MODERATE; POIKILOCYTOSIS SLIGHT; TEARDROP CELLS SLIGHT
--- NOTE | 2019-02-24 16:30 | US ---
Date of service: 02/24/2019 HISTORY: evaluate kidney r/o hydro COMPARISON: CT scan 01/15/2019 TECHNIQUE: Sonographic evaluation of the abdomen. FINDINGS: LIVER: Measures 12.8 cm. No intrahepatic ductal dilatation is seen. The liver shows evidence of a small hypoechoic cyst measuring 13 millimeters x 13 millimeters. This is noted adjacent to the gallbladder and is seen on the prior CT scan. Liver appears to have mild overall decreased echogenicity and possible mild starry krunal appearance with prominence of the portal triads. Appearance is nonspecific but has been described with entity such as hepatitis. GALLBLADDER: Unremarkable. No gallstones. COMMON BILE DUCT: Measures 4 mm. No stones. No dilatation. PANCREAS: Pancreas was not adequately identified due to overlying bowel gas. RIGHT KIDNEY: Measures 11.5cm. There is evidence of a 2.8 centimeter by 2.3 centimeter right renal cyst in the lower pole region. No hydronephrosis or calculus is seen in the right kidney. Renal echogenicity is within normal limits. LEFT KIDNEY: Left kidney was not adequately seen. Left kidney appears to have been previously removed or is atrophic. SPLEEN: Normal in size and contour. No mass. AORTA: Mild atherosclerotic changes noted. No aneurysm is seen. IVC: IVC is normal in size. Hepatic vein evaluation is limited although they appear to be patent. OTHER FINDINGS: None. IMPRESSION: Small liver cyst. Overall decreased echogenicity of the liver with some prominence of the portal triads. Appearance has been described with entity such as hepatitis. No evidence of gallstones or gallbladder wall thickening. Nonvisualization of the pancreas. No hydronephrosis of the right kidney is seen. Left kidney not well seen as noted on prior CT scan.
--- NOTE | 2019-02-24 21:18 | CARD ---
APPROVED REPORT Date of service: 02/24/2019 EKG Measurement Heart [id number] <Conclusion> Atrial fibrillation with rapid ventricular response ST & T wave abnormalities Abnormal ECG
[2019-02-24 21:43] LABS: ABG ALLEN TEST YES; ARTERIAL BLOOD GAS HCO3 12.2 mmol/L (21-28); ARTERIAL BLOOD GAS HEMOGLOBIN 9.4 g/dL (11.7-17.4); ARTERIAL BLOOD GAS O2 CAPACITY 13.3 mL/dL (16-24); ARTERIAL BLOOD GAS O2 CONTENT 12.4 ML/dL (15-23); ARTERIAL BLOOD GAS O2 SAT 93.2 % (95-98); ARTERIAL BLOOD GAS PCO2 25 mm/Hg (35-45); ARTERIAL BLOOD GAS PH 7.21 (7.35-7.45); ARTERIAL BLOOD GAS PO2 72 mm/Hg (80-100); ARTERIAL BLOOD GAS TCO2 10.8 mmol/L (22-28)
[2019-02-24] MEDS: Amiodarone 450 MG in Sodium Chloride 0.9% 250 ML IVPB SCH (23:12)
[2019-02-25] MEDS: Linezolid 600 mg in D5W 300 ml 600 MG/300 ML BAG IVPB SCH ×3 (00:09→20:42)
[2019-02-25] MEDS: Sodium Bicarbonate 7.5% (0.9 MEQ/ML) 50ML INJ IV ONE (00:13)
[2019-02-25] MEDS: Dextrose 50% SYRINGE Inj (50 ml) IV PRN ×3 (00:14→17:12)
[2019-02-25] MEDS ORDERED: Dextrose 5%/0.45% NS 1,000 ML IV SCH ×2 (00:30→04:59)
[2019-02-25] MEDS: Sodium Bicarbonate 8.4% 150 MEQ in Dextrose 5% In Water 1,000 ML IV SCH ×2 (02:01→22:52)
[2019-02-25] MEDS: metroNIDAZOLE 500mg/100ml NS 100 ML IVPB SCH ×3 (02:04→16:15)
[2019-02-25 04:48] LABS: ABG ALLEN TEST YES; ARTERIAL BLOOD GAS HCO3 12.8 mmol/L (21-28); ARTERIAL BLOOD GAS O2 SAT 93.1 % (95-98); ARTERIAL BLOOD GAS PCO2 35 mm/Hg (35-45); ARTERIAL BLOOD GAS PH 7.16 (7.35-7.45); ARTERIAL BLOOD GAS PO2 69 mm/Hg (80-100); ARTERIAL BLOOD GAS TCO2 13.6 mmol/L (22-28)
[2019-02-25] MEDS ORDERED: Sodium Bicarbonate 7.5% (0.9 MEQ/ML) 50ML INJ IV ONE (04:55)
[2019-02-25 05:37] LABS: PARTIAL THROMBOPLASTIN TIME 74.6 Seconds (25.6-37.1)
[2019-02-25 05:41] LABS: LYMPH # 0.3 K/uL (1.0-4.3); MEAN CORPUSCULAR HEMOGLOBIN 26.8 pg (27.0-31.0); NEUT # 0.6 K/uL (1.8-7.0); RBC 3.13 Mil/uL (4.40-5.90)
[2019-02-25 05:58] LABS: INR 6.2; PROTHROMBIN TIME 70.5 Seconds (9.8-13.1)
[2019-02-25 06:24] LABS: EOS % 0.1 % (0.0-4.0); MEAN CELL VOLUME 87.2 fl (80.0-94.0); MEAN CORPUSCULAR HGB CONC 30.7 g/dL (33.0-37.0); MEAN PLATELET VOLUME 11.5 fl (7.2-11.7); MONO % 0.9 % (0.0-10.0); NRBC % 1.1 % (0.0-0.0); RED CELL DISTRIBUTION WIDTH 22.4 % (11.5-14.5)
[2019-02-25] MEDS ORDERED: Phytonadione 10 mg/ml Inj (Adult) IVPB ONE (06:26)
[2019-02-25 06:31] LABS: WHITE BLOOD COUNT 0.9 K/uL (4.8-10.8)
[2019-02-25 06:32] LABS: HEMOGLOBIN 8.4 g/dL (12.0-18.0)
[2019-02-25] MEDS ORDERED: Midazolam 2 MG/2 ML VIAL ONE ×2 (06:40→06:50)
[2019-02-25 06:44] LABS: ALB/GLOB RATIO 0.7 (1.0-2.1); ALBUMIN 1.5 g/dL (3.5-5.0)
[2019-02-25] MEDS ORDERED: Phytonadione 10 MG in Sodium Chloride 0.9% 50 ML IV ONE (06:45)
[2019-02-25] MEDS ORDERED: Midazolam 2 MG/2 ML VIAL IV ONE (06:50)
--- NOTE | 2019-02-25 06:56 | PCM.PROC ---
Procedures Attestation:: I certify that I have explained the specified Operation(s) or Procedure(s), risks, benefits and reasonable alternatives to the Patient and/or other person responsible. The opportunity was given to ask questions and all questions answered - Intubation Sedative: Versed Laryngoscope: Trice ET Tube Size: 8.0 ET Tube Uncuffed: No ET Tube Secured Locarion: Lips ET Tube Placement Confirmation: Visualized Passing Through Cords, Breath Sounds Equal Bilaterally, No Breath Sounds Over Epigastrum, Confirmation w/Capnometry Patient Tolerated Procedure: No Complications Procedure Immediate Complications: None Additional comments: The patient was intubated because of severe Hypoxia SpO2 88 on NRBM in patient who cannot be placed on BIPAP
[2019-02-25] MEDS ORDERED: Chlorhexidine Gluconate 1 APPL/PKT TP ONE (07:03)
[2019-02-25] MEDS: Insulin Regular 100 units/ml SC SCH ×4 (07:30→21:15)
--- NOTE | 2019-02-25 08:26 | PN ---
DATE: 02/24/2019 SUBJECTIVE: The patient seen and examined. Interim events noted. The patient remains in progressive care unit, on telemetry monitoring. The patient is sleeping, arousable, complains of abdominal pain. No chest pain, no shortness of breath. Abdominal pain seems to be slightly better and improving postop pain. Also tolerating diet. PHYSICAL EXAMINATION: GENERAL: The patient is in no acute distress. VITAL SIGNS: Stable. HEART: S1 and S2. Normal and regular. LUNGS: Good bilateral air exchange. ABDOMEN: Soft, nontender. The patient has bilateral at this time. No sign of acute abdomen. No guarding. No rigidity. No rebound. The patient has tenderness consistent with postop status. EXTREMITIES: No calf swelling. No tenderness. No acute ischemia. CENTRAL NERVOUS SYSTEM: Essentially unchanged. DIAGNOSTIC DATA: Available diagnostic data reviewed. Telemetry monitoring does not show any significant arrhythmias. ASSESSMENT AND PLAN: Overall, The patient's general medical condition is stable although long-term prognosis remains poor. Plan as ordered. Gatito Mathew MD
[2019-02-25] MEDS ORDERED: Sodium Bicarbonate 8.4% 150 MEQ in Dextrose 5% In Water 1,000 ML IV SCH (08:32)
[2019-02-25 08:46] LABS: ABG ALLEN TEST YES; ARTERIAL BLOOD GAS HCO3 15.5 mmol/L (21-28); ARTERIAL BLOOD GAS HEMOGLOBIN 9.1 g/dL (11.7-17.4); ARTERIAL BLOOD GAS O2 CAPACITY 12.8 mL/dL (16-24); ARTERIAL BLOOD GAS O2 CONTENT 11.5 ML/dL (15-23); ARTERIAL BLOOD GAS O2 SAT 89.6 % (95-98); ARTERIAL BLOOD GAS PCO2 39 mm/Hg (35-45); ARTERIAL BLOOD GAS PO2 54 mm/Hg (80-100); ARTERIAL BLOOD GAS TCO2 16.4 mmol/L (22-28)
[2019-02-25] MEDS ORDERED: Albuterol-Ipratrop 3 mg / 0.5 (3 ml) UD INH PRN (08:53)
[2019-02-25] MEDS ORDERED: Hydrocortisone- 100 MG in Sodium Chloride 0.9% 100 ML IV SCH (09:00)
[2019-02-25 09:57] LABS: SQUAMOUS EPITHIAL < 1 /hpf (0-5); URINE BACTERIA FEW (<OCC); URINE BILIRUBIN NEGATIVE (NEGATIVE); URINE BLOOD MODERATE (NEGATIVE); URINE CLARITY SLIGHTY-CLOUDY (Clear); URINE COLOR YELLOW (YELLOW); URINE GLUCOSE (UA) NEG (NEGATIVE); URINE HYALINE CAST 0-2 /hpf (0-2); URINE LEUKOCYTE ESTERASE TRACE Leu/uL (Negative); URINE PROTEIN 30 mg/dL (NEGATIVE); URINE UROBILINOGEN 0.2-1.0 mg/dL (0.2-1.0)
[2019-02-25] MEDS: Sucralfate 1 gm/10 ml Oral Susp UD PO SCH ×4 (10:23→21:20)
[2019-02-25] MEDS: Aztreonam 1 GM in Sodium Chloride 0.9% 100 ML IVPB SCH ×2 (10:23→16:14)
[2019-02-25] MEDS: Vancomycin 500 mg (Oral/Rectal USE) PO SCH ×3 (10:30→21:25)
--- NOTE | 2019-02-25 10:30 | RAD ---
Date of service: 02/25/2019 PROCEDURE: CHEST RADIOGRAPH, 1 VIEW HISTORY: rhonchi/rales COMPARISON: 02/24/2019 FINDINGS: LUNGS: Opacity at left both lung bases. Possible pulmonary edema. This represents interval change from the prior examination. PLEURA: Questionable elevation of right hemidiaphragm. Small bilateral pleural effusion. No pneumothorax. CARDIOVASCULAR: Normal heart size. Left IJ central venous catheter unchanged. Mild congestive change noted. OSSEOUS STRUCTURES: No significant abnormalities. VISUALIZED UPPER ABDOMEN: Normal. OTHER FINDINGS: None. IMPRESSION: Bibasilar infiltrates and mild congestive change. Probable small bilateral pleural effusion. Findings suspicious for pulmonary edema.
[2019-02-25] MEDS: Lidocaine 5% Patch TD SCH (10:32)
[2019-02-25] MEDS ORDERED: Digoxin 500 mcg/2ml (0.5 mg/2ml) Inj IVP ONE (10:36)
[2019-02-25] MEDS ORDERED: Diatriz Meglumine/Diatriz Sod 30 ML BOTTLE PO ONE (10:48)
[2019-02-25 11:05] VITALS: PULSE 118
--- NOTE | 2019-02-25 12:04 | CP.CCUPN ---
CCU Subjective - Physician Review Subjective (Free Text): Patient intubated by manager night, worsening Co2 retention CCU Objective - Vital Signs / Intake & Output Vital Signs (Last 4 hours): Vital Signs Temp Pulse Resp BP Pulse Ox 02/25/19 08:00 98.4 F 113 H 23 101/42 L 94 L Intake and Output (Last 8hrs): Intake & Output 02/24/19 02/25/19 02/25/19 22:59 06:59 14:59 Intake Total 0 161.7 Balance 0 161.7 Intake: IV 0 161.7 - Medications Active Medications: Active Medications Generic Name Dose Route Start Last Admin Trade Name Freq PRN Reason Stop Dose Admin Acetaminophen 650 mg 02/24/19 22:51 02/24/19 23:50 Tylenol 650 Mg Supp GA 650 mg Q6 PRN Administration Fever >100.4 F Albumin Human 25 gm 02/25/19 07:45 Albumin Human 25% (12.5 Gm/50 Ml) IV 02/26/19 01:46 Q6H JOVANNY Albuterol/Ipratropium 3 ml 02/25/19 08:53 Duoneb 3 Mg/0.5 Mg (3 Ml) Ud INH RQ6 PRN Shortness of Breath Atorvastatin Calcium 40 mg 02/06/19 09:00 02/25/19 10:25 Lipitor PO Not Given DAILY JOVANNY Dextrose 0 gm 02/05/19 16:11 Glutose 15 PO ONCE PRN Hypoglycemia Protocol Protocol Dextrose 0 ml 02/24/19 17:27 02/25/19 04:53 Dextrose 50% Inj IV 50 ml Q1H PRN Administration Hypoglycemia Protocol Protocol Dimethicone 1 applic 02/05/19 16:14 02/14/19 09:50 Proshield Plus Skin Protectant TOP 1 applic Q8 PRN Administration derm Ergocalciferol 1 cap 02/08/19 16:03 02/22/19 16:04 Drisdol 50,000 Intl Units Cap PO 1 cap FR JOVANNY Administration Glucagon 0 mg 02/05/19 16:11 Glucagen Diagnostic Kit IM STAT PRN Hypoglycemia Protocol Protocol Hydrocortisone Sodium Succinate 100 mg 02/25/19 09:00 02/25/19 10:26 Solu-Cortef IV 100 mg Q8 JOVANNY Administration Iron Sucrose 100 mg/ Sodium 105 mls @ 105 mls/hr 02/06/19 09:00 02/12/19 1 2:07 Chloride IVPB 105 mls/hr DAILY JOVANNY Administration Norepinephrine Bitartrate 4 mg 254 mls @ 9.53 mls/hr 02/24/19 11:45 02/25/19 06:34 / Dextrose IV 10 mcg/min .Q24H JOVANNY 38.1 mls/hr Titration Protocol 2.5 MCG/MIN Metronidazole 100 mls @ 100 mls/hr 02/24/19 11:45 02/25/19 10:24 Flagyl 500mg/100ml Ns IVPB 100 mls/hr Q8 JOVANNY Administration Protocol Linezolid 600 mg in 300 mls @ 300 mls/hr 02/24/19 21:00 02/25/19 10:28 Zyvox 600mg/300ml D5w IVPB 300 mls/hr Q12 JOVANNY Administration Protocol Amiodarone HCl 450 mg/ Sodium 259 mls @ 17.27 mls/hr 02/24/19 21:15 02/24/19 23:12 Chloride IVPB 17.27 mls/hr .Q15H JOVANNY Administration Protocol 0.5 MG/MIN Aztreonam 1 gm/ Sodium 100 mls @ 100 mls/hr 02/25/19 08:30 02/25/19 10:23 Chloride IVPB 100 mls/hr Q8H JOVANNY Administration Protocol Vasopressin 100 units/ Sodium 105 mls @ 2.52 mls/hr 02/25/19 12:00 Chloride IV .Q24H JOVANNY Protocol 0.04 UNITS/MIN Insulin Human Regular 0 units 02/05/19 16:30 02/24/19 22:28 Humulin R SC Not Given ACHS JOVANNY Protocol Lidocaine 1 ea 02/19/19 15:00 02/25/19 10:32 Lidoderm TD 1 ea DAILY JOVANNY Administration Memantine 10 mg 02/05/19 17:00 02/25/19 10:25 Namenda PO Not Given BID JOVANNY Ondansetron HCl 4 mg 02/22/19 07:38 02/22/19 15:57 Zofran Inj IVP 4 mg Q4 PRN Administration Nausea/Vomiting Sucralfate 1 gm 02/05/19 17:00 02/25/19 10:23 Carafate Oral Susp PO Not Given QID JOVANNY Tamsulosin HCl 0.4 mg 02/06/19 09:00 02/25/19 10:25 Flomax PO Not Given DAILY JOVANNY Vancomycin HCl 500 mg 02/25/19 10:00 02/25/19 10:30 Vancocin (Oral/Rectal Use) PO 500 mg Q6 JOVANNY Administration Protocol - Patient Studies Lab Studies: Microbiology Studies 02/24/19 12:15 Gram Stain - Final Blood Lab Studies 02/25/19 02/25/19 02/25/19 Range/Units 09:40 07:30 05:18 WBC (4.8-10.8) K/uL RBC (4.40-5.90) Mil/uL Hgb (12.0-18.0) g/dL Hct (35.0-51.0) % MCV (80.0-94.0) fl MCH (27.0-31.0) pg MCHC (33.0-37.0) g/dL RDW (11.5-14.5) % Plt Count (130-400) K/uL MPV (7.2-11.7) fl Neut % (Auto) (50.0-75.0) % Lymph % (Auto) (20.0-40.0) % [place] % (Auto) (0.0-10.0) % Eos % (Auto) (0.0-4.0) % Baso % (Auto) (0.0-2.0) % Neut # (Auto) (1.8-7.0) K/uL Lymph # (Auto) (1.0-4.3) K/uL [place] # (Auto) (0.0-0.8) K/uL Eos # (Auto) (0.0-0.7) K/uL Baso # (Auto) (0.0-0.2) K/uL Neutrophils % (Manual) (42-75) % Band Neutrophils % (0-2) % Lymphocytes % (Manual) (20-50) % Monocytes % (Manual) (0-10) % Metamyelocytes % (0-0) % Platelet Estimate (NORMAL) Large Platelets Poikilocytosis (manual Anisocytosis (manual) Microcytosis (manual) Tear Drop Cells Ovalocytes Adarsh Cells PT 70.5 H* D (9.8-13.1) Seconds INR 6.2 APTT 74.6 H (25.6-37.1) Seconds pCO2 39 (35-45) mm/Hg pO2 54 L (80-100) mm/Hg HCO3 15.5 L (21-28) mmol/L ABG pH 7.20 L (7.35-7.45) ABG Total CO2 16.4 L (22-28) mmol/L ABG O2 Saturation 89.6 L (95-98) % ABG O2 Content 11.5 L (15-23) ML/dL ABG Base Excess -12.0 L (-2.0-3.0) mmol/L ABG Hemoglobin 9.1 L (11.7-17.4) g/dL ABG Carboxyhemoglobin 0 L (0.5-1.5) % POC ABG HHb (Measured) 10.4 H (0.0-5.0) % ABG Methemoglobin 0.0 (0.0-3.0) % ABG O2 Capacity 12.8 L (16-24) mL/dL [place] Test Yes ABG Potassium (3.6-5.2) mmol/L A-a O2 Difference 610.0 mm/Hg Hgb O2 Saturation 89.6 L (95.0-98.0) % Glucose (75-110) mg/dL Lactate (0.7-2.1) mmol/L Vent Mode A/c Mechanical Rate 18 FiO2 100.0 % Tidal Volume 450 PEEP 5 Crit Value Called To Dr janey augero Crit Value Called By 15 Crit Value Read Back Y Blood Gas Notified Time 845 Sodium (132-148) mmol/l Potassium (3.6-5.0) MMOL/L Chloride (98-107) mmol/L Carbon Dioxide (22-30) mmol/L Anion Gap (10-20) BUN (9-20) mg/dl Creatinine (0.8-1.5) mg/dl Est GFR ( Amer) Est GFR (Non-Af Amer) POC Glucose (mg/dL) (65-110) mg/dL Random Glucose (75-110) mg/dL Lactic Acid (0.7-2.1) mmol/L Calcium (8.4-10.2) mg/dL Phosphorus (2.5-4.5) mg/dl Magnesium (1.6-2.3) MG/DL Total Bilirubin (0.2-1.3) mg/dl AST (17-59) U/L ALT (21-72) U/L Alkaline Phosphatase (38-126) U/L Troponin I (0.00-0.120) ng/mL NT-Pro-B Natriuret Pep (0-900) pg/ml Total Protein (6.3-8.2) G/DL Albumin (3.5-5.0) g/dL Globulin (2.2-3.9) gm/dL Albumin/Globulin Ratio (1.0-2.1) TSH 3rd Generation (0.46-4.68) mIU/ML Arterial Blood Potassium (3.6-5.2) mmol/L Urine Color Yellow (YELLOW) Urine Clarity Slighty-cloudy (Clear) Urine pH 5.0 (5.0-8.0) Ur Specific [place] 1.018 (1.003-1.030) Urine Protein 30 (NEGATIVE) mg/dL Urine Glucose (UA) Neg (NEGATIVE) mg/dL Urine Ketones Negative (NEGATIVE) mg/dL Urine Blood Moderate (NEGATIVE) Urine Nitrate Negative (NEGATIVE) Urine Bilirubin Negative (NEGATIVE) Urine Urobilinogen 0.2-1.0 (0.2-1.0) mg/dL Ur Leukocyte Esterase Trace (Negative) Ab/uL Urine RBC (Auto) 11 H (0-3) /hpf Urine Microscopic WBC 4 (0-5) /hpf Ur Squamous Epith Cells < 1 (0-5) /hpf Urine Bacteria Few H (<OCC) Hyaline Casts 0-2 (0-2) /hpf Stool Occult Blood (NEGATIVE) Digoxin (0.8-2.0) ng/mL C. difficile Ag & Toxin (NEGATIVE) 02/25/19 02/25/19 02/25/19 Range/Units 05:18 05:18 04:40 WBC 0.9 L* D (4.8-10.8) K/uL RBC 3.13 L (4.40-5.90) Mil/uL Hgb 8.4 L (12.0-18.0) g/dL Hct 27.3 L (35.0-51.0) % MCV 87.2 (80.0-94.0) fl MCH 26.8 L (27.0-31.0) pg MCHC 30.7 L (33.0-37.0) g/dL RDW 22.4 H (11.5-14.5) % Plt Count 81 L D (130-400) K/uL MPV 11.5 (7.2-11.7) fl Neut % (Auto) 65.0 (50.0-75.0) % Lymph % (Auto) 34.0 (20.0-40.0) % [place] % (Auto) 0.9 (0.0-10.0) % Eos % (Auto) 0.1 (0.0-4.0) % Baso % (Auto) 0.0 (0.0-2.0) % Neut # (Auto) 0.6 L (1.8-7.0) K/uL Lymph # (Auto) 0.3 L (1.0-4.3) K/uL [place] # (Auto) 0.0 (0.0-0.8) K/uL Eos # (Auto) 0.0 (0.0-0.7) K/uL Baso # (Auto) 0.0 (0.0-0.2) K/uL Neutrophils % (Manual) (42-75) % Band Neutrophils % (0-2) % Lymphocytes % (Manual) (20-50) % Monocytes % (Manual) (0-10) % Metamyelocytes % (0-0) % Platelet Estimate (NORMAL) Large Platelets Poikilocytosis (manual Anisocytosis (manual) Microcytosis (manual) Tear Drop Cells Ovalocytes Adarsh Cells PT (9.8-13.1) Seconds INR APTT (25.6-37.1) Seconds pCO2 35 (35-45) mm/Hg pO2 69 L (80-100) mm/Hg HCO3 12.8 L (21-28) mmol/L ABG pH 7.16 L* (7.35-7.45) ABG Total CO2 13.6 L (22-28) mmol/L ABG O2 Saturation 93.1 L (95-98) % ABG O2 Content (15-23) ML/dL ABG Base Excess -15.2 L (-2.0-3.0) mmol/L ABG Hemoglobin (11.7-17.4) g/dL ABG Carboxyhemoglobin (0.5-1.5) % POC ABG HHb (Measured) (0.0-5.0) % ABG Methemoglobin (0.0-3.0) % ABG O2 Capacity (16-24) mL/dL [place] Test Yes ABG Potassium 4.0 (3.6-5.2) mmol/L A-a O2 Difference 600.0 mm/Hg Hgb O2 Saturation (95.0-98.0) % Glucose 123 H (75-110) mg/dL Lactate 7.6 H* (0.7-2.1) mmol/L Vent Mode Nrm Mechanical Rate FiO2 100.0 % Tidal Volume PEEP Crit Value Called To emely Mason rn Crit Value Called By 302 Crit Value Read Back Y Blood Gas Notified Time 447 Sodium 146 142.0 (132-148) mmol/l Potassium 3.4 L (3.6-5.0) MMOL/L Chloride 117 H 115.0 H (98-107) mmol/L Carbon Dioxide 16 L (22-30) mmol/L Anion Gap 16 (10-20) BUN 45 H (9-20) mg/dl Creatinine 2.3 H (0.8-1.5) mg/dl Est GFR ( Amer) 33 Est GFR (Non-Af Amer) 28 POC Glucose (mg/dL) (65-110) mg/dL Random Glucose 120 H (75-110) mg/dL Lactic Acid (0.7-2.1) mmol/L Calcium 6.0 L* (8.4-10.2) mg/dL Phosphorus 4.5 (2.5-4.5) mg/dl Magnesium 1.9 (1.6-2.3) MG/DL Total Bilirubin 0.2 (0.2-1.3) mg/dl AST 36 (17-59) U/L ALT 29 (21-72) U/L Alkaline Phosphatase 36 L D (38-126) U/L Troponin I (0.00-0.120) ng/mL NT-Pro-B Natriuret Pep (0-900) pg/ml Total Protein 3.7 L (6.3-8.2) G/DL Albumin 1.5 L D (3.5-5.0) g/dL Globulin 2.2 (2.2-3.9) gm/dL Albumin/Globulin Ratio 0.7 L (1.0-2.1) TSH 3rd Generation 1.13 (0.46-4.68) mIU/ML Arterial Blood Potassium 4.0 (3.6-5.2) mmol/L Urine Color (YELLOW) Urine Clarity (Clear) Urine pH (5.0-8.0) Ur Specific [place] (1.003-1.030) Urine Protein (NEGATIVE) mg/dL Urine Glucose (UA) (NEGATIVE) mg/dL Urine Ketones (NEGATIVE) mg/dL Urine Blood (NEGATIVE) Urine Nitrate (NEGATIVE) Urine Bilirubin (NEGATIVE) Urine Urobilinogen (0.2-1.0) mg/dL Ur Leukocyte Esterase (Negative) Ab/uL Urine RBC (Auto) (0-3) /hpf Urine Microscopic WBC (0-5) /hpf Ur Squamous Epith Cells (0-5) /hpf Urine Bacteria (<OCC) Hyaline Casts (0-2) /hpf Stool Occult Blood (NEGATIVE) Digoxin (0.8-2.0) ng/mL C. difficile Ag & Toxin (NEGATIVE) 02/25/19 02/24/19 02/24/19 Range/Units 00:00 23:56 23:35 WBC (4.8-10.8) K/uL RBC (4.40-5.90) Mil/uL Hgb (12.0-18.0) g/dL Hct (35.0-51.0) % MCV (80.0-94.0) fl MCH (27.0-31.0) pg MCHC (33.0-37.0) g/dL RDW (11.5-14.5) % Plt Count (130-400) K/uL MPV (7.2-11.7) fl Neut % (Auto) (50.0-75.0) % Lymph % (Auto) (20.0-40.0) % [place] % (Auto) (0.0-10.0) % Eos % (Auto) (0.0-4.0) % Baso % (Auto) (0.0-2.0) % Neut # (Auto) (1.8-7.0) K/uL Lymph # (Auto) (1.0-4.3) K/uL [place] # (Auto) (0.0-0.8) K/uL Eos # (Auto) (0.0-0.7) K/uL Baso # (Auto) (0.0-0.2) K/uL Neutrophils % (Manual) (42-75) % Band Neutrophils % (0-2) % Lymphocytes % (Manual) (20-50) % Monocytes % (Manual) (0-10) % Metamyelocytes % (0-0) % Platelet Estimate (NORMAL) Large Platelets Poikilocytosis (manual Anisocytosis (manual) Microcytosis (manual) Tear Drop Cells Ovalocytes [place] Cells PT (9.8-13.1) Seconds INR APTT (25.6-37.1) Seconds pCO2 (35-45) mm/Hg pO2 (80-100) mm/Hg HCO3 (21-28) mmol/L ABG pH (7.35-7.45) ABG Total CO2 (22-28) mmol/L ABG O2 Saturation (95-98) % ABG O2 Content (15-23) ML/dL ABG Base Excess (-2.0-3.0) mmol/L ABG Hemoglobin (11.7-17.4) g/dL ABG Carboxyhemoglobin (0.5-1.5) % POC ABG HHb (Measured) (0.0-5.0) % ABG Methemoglobin (0.0-3.0) % ABG O2 Capacity (16-24) mL/dL [place] Test ABG Potassium (3.6-5.2) mmol/L A-a O2 Difference mm/Hg Hgb O2 Saturation (95.0-98.0) % Glucose (75-110) mg/dL Lactate (0.7-2.1) mmol/L Vent Mode Mechanical Rate FiO2 % Tidal Volume PEEP Crit Value Called To Crit Value Called By Crit Value Read Back Blood Gas Notified Time Sodium (132-148) mmol/l Potassium (3.6-5.0) MMOL/L Chloride (98-107) mmol/L Carbon Dioxide (22-30) mmol/L Anion Gap (10-20) BUN (9-20) mg/dl Creatinine (0.8-1.5) mg/dl Est GFR ( Amer) Est GFR (Non-Af Amer) POC Glucose (mg/dL) 51 L (65-110) mg/dL Random Glucose (75-110) mg/dL Lactic Acid 8.7 H* (0.7-2.1) mmol/L Calcium (8.4-10.2) mg/dL Phosphorus (2.5-4.5) mg/dl Magnesium (1.6-2.3) MG/DL Total Bilirubin (0.2-1.3) mg/dl AST (17-59) U/L ALT (21-72) U/L Alkaline Phosphatase (38-126) U/L Troponin I (0.00-0.120) ng/mL NT-Pro-B Natriuret Pep (0-900) pg/ml Total Protein (6.3-8.2) G/DL Albumin (3.5-5.0) g/dL Globulin (2.2-3.9) gm/dL Albumin/Globulin Ratio (1.0-2.1) TSH 3rd Generation (0.46-4.68) mIU/ML Arterial Blood Potassium (3.6-5.2) mmol/L Urine Color (YELLOW) Urine Clarity (Clear) Urine pH (5.0-8.0) Ur Specific [place] (1.003-1.030) Urine Protein (NEGATIVE) mg/dL Urine Glucose (UA) (NEGATIVE) mg/dL Urine Ketones (NEGATIVE) mg/dL Urine Blood (NEGATIVE) Urine Nitrate (NEGATIVE) Urine Bilirubin (NEGATIVE) Urine Urobilinogen (0.2-1.0) mg/dL Ur Leukocyte Esterase (Negative) Ab/uL Urine RBC (Auto) (0-3) /hpf Urine Microscopic WBC (0-5) /hpf Ur Squamous Epith Cells (0-5) /hpf Urine Bacteria (<OCC) Hyaline Casts (0-2) /hpf Stool Occult Blood (NEGATIVE) Digoxin (0.8-2.0) ng/mL C. difficile Ag & Toxin Positive toxin (NEGATIVE) 02/24/19 02/24/19 02/24/19 Range/Units 22:21 21:39 20:28 WBC (4.8-10.8) K/uL RBC (4.40-5.90) Mil/uL Hgb (12.0-18.0) g/dL Hct (35.0-51.0) % MCV (80.0-94.0) fl MCH (27.0-31.0) pg MCHC (33.0-37.0) g/dL RDW (11.5-14.5) % Plt Count (130-400) K/uL MPV (7.2-11.7) fl Neut % (Auto) (50.0-75.0) % Lymph % (Auto) (20.0-40.0) % [place] % (Auto) (0.0-10.0) % Eos % (Auto) (0.0-4.0) % Baso % (Auto) (0.0-2.0) % Neut # (Auto) (1.8-7.0) K/uL Lymph # (Auto) (1.0-4.3) K/uL [place] # (Auto) (0.0-0.8) K/uL Eos # (Auto) (0.0-0.7) K/uL Baso # (Auto) (0.0-0.2) K/uL Neutrophils % (Manual) (42-75) % Band Neutrophils % (0-2) % Lymphocytes % (Manual) (20-50) % Monocytes % (Manual) (0-10) % Metamyelocytes % (0-0) % Platelet Estimate (NORMAL) Large Platelets Poikilocytosis (manual Anisocytosis (manual) Microcytosis (manual) Tear Drop Cells Ovalocytes Adarsh Cells PT (9.8-13.1) Seconds INR APTT (25.6-37.1) Seconds pCO2 25 L (35-45) mm/Hg pO2 72 L (80-100) mm/Hg HCO3 12.2 L (21-28) mmol/L ABG pH 7.21 L (7.35-7.45) ABG Total CO2 10.8 L (22-28) mmol/L ABG O2 Saturation 93.2 L (95-98) % ABG O2 Content 12.4 L (15-23) ML/dL ABG Base Excess -16.3 L (-2.0-3.0) mmol/L ABG Hemoglobin 9.4 L (11.7-17.4) g/dL ABG Carboxyhemoglobin 0 L (0.5-1.5) % POC ABG HHb (Measured) 6.8 H (0.0-5.0) % ABG Methemoglobin 0.0 (0.0-3.0) % ABG O2 Capacity 13.3 L (16-24) mL/dL [place] Test Yes ABG Potassium (3.6-5.2) mmol/L A-a O2 Difference 610.0 mm/Hg Hgb O2 Saturation 93.2 L (95.0-98.0) % Glucose (75-110) mg/dL Lactate (0.7-2.1) mmol/L Vent Mode Mechanical Rate FiO2 100.0 % Tidal Volume PEEP Crit Value Called To Crit Value Called By Crit Value Read Back Blood Gas Notified Time Sodium (132-148) mmol/l Potassium (3.6-5.0) MMOL/L Chloride (98-107) mmol/L Carbon Dioxide (22-30) mmol/L Anion Gap (10-20) BUN (9-20) mg/dl Creatinine (0.8-1.5) mg/dl Est GFR ( Amer) Est GFR (Non-Af Amer) POC Glucose (mg/dL) 35 L* 109 (65-110) mg/dL Random Glucose (75-110) mg/dL Lactic Acid (0.7-2.1) mmol/L Calcium (8.4-10.2) mg/dL Phosphorus (2.5-4.5) mg/dl Magnesium (1.6-2.3) MG/DL Total Bilirubin (0.2-1.3) mg/dl AST (17-59) U/L ALT (21-72) U/L Alkaline Phosphatase (38-126) U/L Troponin I (0.00-0.120) ng/mL NT-Pro-B Natriuret Pep (0-900) pg/ml Total Protein (6.3-8.2) G/DL Albumin (3.5-5.0) g/dL Globulin (2.2-3.9) gm/dL Albumin/Globulin Ratio (1.0-2.1) TSH 3rd Generation (0.46-4.68) mIU/ML Arterial Blood Potassium (3.6-5.2) mmol/L Urine Color (YELLOW) Urine Clarity (Clear) Urine pH (5.0-8.0) Ur Specific [place] (1.003-1.030) Urine Protein (NEGATIVE) mg/dL Urine Glucose (UA) (NEGATIVE) mg/dL Urine Ketones (NEGATIVE) mg/dL Urine Blood (NEGATIVE) Urine Nitrate (NEGATIVE) Urine Bilirubin (NEGATIVE) Urine Urobilinogen (0.2-1.0) mg/dL Ur Leukocyte Esterase (Negative) Ab/uL Urine RBC (Auto) (0-3) /hpf Urine Microscopic WBC (0-5) /hpf Ur Squamous Epith Cells (0-5) /hpf Urine Bacteria (<OCC) Hyaline Casts (0-2) /hpf Stool Occult Blood (NEGATIVE) Digoxin (0.8-2.0) ng/mL C. difficile Ag & Toxin (NEGATIVE) 02/24/19 02/24/19 02/24/19 Range/Units 20:04 18:45 17:11 WBC (4.8-10.8) K/uL RBC (4.40-5.90) Mil/uL Hgb (12.0-18.0) g/dL Hct (35.0-51.0) % MCV (80.0-94.0) fl MCH (27.0-31.0) pg MCHC (33.0-37.0) g/dL RDW (11.5-14.5) % Plt Count (130-400) K/uL MPV (7.2-11.7) fl Neut % (Auto) (50.0-75.0) % Lymph % (Auto) (20.0-40.0) % [place] % (Auto) (0.0-10.0) % Eos % (Auto) (0.0-4.0) % Baso % (Auto) (0.0-2.0) % Neut # (Auto) (1.8-7.0) K/uL Lymph # (Auto) (1.0-4.3) K/uL [place] # (Auto) (0.0-0.8) K/uL Eos # (Auto) (0.0-0.7) K/uL Baso # (Auto) (0.0-0.2) K/uL Neutrophils % (Manual) (42-75) % Band Neutrophils % (0-2) % Lymphocytes % (Manual) (20-50) % Monocytes % (Manual) (0-10) % Metamyelocytes % (0-0) % Platelet Estimate (NORMAL) Large Platelets Poikilocytosis (manual Anisocytosis (manual) Microcytosis (manual) Tear Drop Cells Ovalocytes Adarsh Cells PT (9.8-13.1) Seconds INR APTT (25.6-37.1) Seconds pCO2 (35-45) mm/Hg pO2 (80-100) mm/Hg HCO3 (21-28) mmol/L ABG pH (7.35-7.45) ABG Total CO2 (22-28) mmol/L ABG O2 Saturation (95-98) % ABG O2 Content (15-23) ML/dL ABG Base Excess (-2.0-3.0) mmol/L ABG Hemoglobin (11.7-17.4) g/dL ABG Carboxyhemoglobin (0.5-1.5) % POC ABG HHb (Measured) (0.0-5.0) % ABG Methemoglobin (0.0-3.0) % ABG O2 Capacity (16-24) mL/dL [place] Test ABG Potassium (3.6-5.2) mmol/L A-a O2 Difference mm/Hg Hgb O2 Saturation (95.0-98.0) % Glucose (75-110) mg/dL Lactate (0.7-2.1) mmol/L Vent Mode Mechanical Rate FiO2 % Tidal Volume PEEP Crit Value Called To Crit Value Called By Crit Value Read Back Blood Gas Notified Time Sodium (132-148) mmol/l Potassium (3.6-5.0) MMOL/L Chloride (98-107) mmol/L Carbon Dioxide (22-30) mmol/L Anion Gap (10-20) BUN (9-20) mg/dl Creatinine (0.8-1.5) mg/dl Est GFR ( Amer) Est GFR (Non-Af Amer) POC Glucose (mg/dL) 60 L (65-110) mg/dL Random Glucose (75-110) mg/dL Lactic Acid 7.8 H* (0.7-2.1) mmol/L Calcium (8.4-10.2) mg/dL Phosphorus (2.5-4.5) mg/dl Magnesium (1.6-2.3) MG/DL Total Bilirubin (0.2-1.3) mg/dl AST (17-59) U/L ALT (21-72) U/L Alkaline Phosphatase (38-126) U/L Troponin I (0.00-0.120) ng/mL NT-Pro-B Natriuret Pep (0-900) pg/ml Total Protein (6.3-8.2) G/DL Albumin (3.5-5.0) g/dL Globulin (2.2-3.9) gm/dL Albumin/Globulin Ratio (1.0-2.1) TSH 3rd Generation (0.46-4.68) mIU/ML Arterial Blood Potassium (3.6-5.2) mmol/L Urine Color (YELLOW) Urine Clarity (Clear) Urine pH (5.0-8.0) Ur Specific [place] (1.003-1.030) Urine Protein (NEGATIVE) mg/dL Urine Glucose (UA) (NEGATIVE) mg/dL Urine Ketones (NEGATIVE) mg/dL Urine Blood (NEGATIVE) Urine Nitrate (NEGATIVE) Urine Bilirubin (NEGATIVE) Urine Urobilinogen (0.2-1.0) mg/dL Ur Leukocyte Esterase (Negative) Ab/uL Urine RBC (Auto) (0-3) /hpf Urine Microscopic WBC (0-5) /hpf Ur Squamous Epith Cells (0-5) /hpf Urine Bacteria (<OCC) Hyaline Casts (0-2) /hpf Stool Occult Blood Positive H (NEGATIVE) Digoxin (0.8-2.0) ng/mL C. difficile Ag & Toxin (NEGATIVE) 02/24/19 02/24/19 02/24/19 Range/Units 16:33 15:55 14:55 WBC (4.8-10.8) K/uL RBC (4.40-5.90) Mil/uL Hgb (12.0-18.0) g/dL Hct (35.0-51.0) % MCV (80.0-94.0) fl MCH (27.0-31.0) pg MCHC (33.0-37.0) g/dL RDW (11.5-14.5) % Plt Count (130-400) K/uL MPV (7.2-11.7) fl Neut % (Auto) (50.0-75.0) % Lymph % (Auto) (20.0-40.0) % [place] % (Auto) (0.0-10.0) % Eos % (Auto) (0.0-4.0) % Baso % (Auto) (0.0-2.0) % Neut # (Auto) (1.8-7.0) K/uL Lymph # (Auto) (1.0-4.3) K/uL [place] # (Auto) (0.0-0.8) K/uL Eos # (Auto) (0.0-0.7) K/uL Baso # (Auto) (0.0-0.2) K/uL Neutrophils % (Manual) (42-75) % Band Neutrophils % (0-2) % Lymphocytes % (Manual) (20-50) % Monocytes % (Manual) (0-10) % Metamyelocytes % (0-0) % Platelet Estimate (NORMAL) Large Platelets Poikilocytosis (manual Anisocytosis (manual) Microcytosis (manual) Tear Drop Cells Ovalocytes Newberry Cells PT (9.8-13.1) Seconds INR APTT (25.6-37.1) Seconds pCO2 (35-45) mm/Hg pO2 (80-100) mm/Hg HCO3 (21-28) mmol/L ABG pH (7.35-7.45) ABG Total CO2 (22-28) mmol/L ABG O2 Saturation (95-98) % ABG O2 Content (15-23) ML/dL ABG Base Excess (-2.0-3.0) mmol/L ABG Hemoglobin (11.7-17.4) g/dL ABG Carboxyhemoglobin (0.5-1.5) % POC ABG HHb (Measured) (0.0-5.0) % ABG Methemoglobin (0.0-3.0) % ABG O2 Capacity (16-24) mL/dL [place] Test ABG Potassium (3.6-5.2) mmol/L A-a O2 Difference mm/Hg Hgb O2 Saturation (95.0-98.0) % Glucose (75-110) mg/dL Lactate (0.7-2.1) mmol/L Vent Mode Mechanical Rate FiO2 % Tidal Volume PEEP Crit Value Called To Crit Value Called By Crit Value Read Back Blood Gas Notified Time Sodium (132-148) mmol/l Potassium (3.6-5.0) MMOL/L Chloride (98-107) mmol/L Carbon Dioxide (22-30) mmol/L Anion Gap (10-20) BUN (9-20) mg/dl Creatinine (0.8-1.5) mg/dl Est GFR ( Amer) Est GFR (Non-Af Amer) POC Glucose (mg/dL) 39 L 79 (65-110) mg/dL Random Glucose (75-110) mg/dL Lactic Acid 6.1 H* (0.7-2.1) mmol/L Calcium (8.4-10.2) mg/dL Phosphorus (2.5-4.5) mg/dl Magnesium (1.6-2.3) MG/DL Total Bilirubin (0.2-1.3) mg/dl AST (17-59) U/L ALT (21-72) U/L Alkaline Phosphatase (38-126) U/L Troponin I (0.00-0.120) ng/mL NT-Pro-B Natriuret Pep (0-900) pg/ml Total Protein (6.3-8.2) G/DL Albumin (3.5-5.0) g/dL Globulin (2.2-3.9) gm/dL Albumin/Globulin Ratio (1.0-2.1) TSH 3rd Generation (0.46-4.68) mIU/ML Arterial Blood Potassium (3.6-5.2) mmol/L Urine Color (YELLOW) Urine Clarity (Clear) Urine pH (5.0-8.0) Ur Specific [place] (1.003-1.030) Urine Protein (NEGATIVE) mg/dL Urine Glucose (UA) (NEGATIVE) mg/dL Urine Ketones (NEGATIVE) mg/dL Urine Blood (NEGATIVE) Urine Nitrate (NEGATIVE) Urine Bilirubin (NEGATIVE) Urine Urobilinogen (0.2-1.0) mg/dL Ur Leukocyte Esterase (Negative) Ab/uL Urine RBC (Auto) (0-3) /hpf Urine Microscopic WBC (0-5) /hpf Ur Squamous Epith Cells (0-5) /hpf Urine Bacteria (<OCC) Hyaline Casts (0-2) /hpf Stool Occult Blood (NEGATIVE) Digoxin (0.8-2.0) ng/mL C. difficile Ag & Toxin (NEGATIVE) 02/24/19 02/24/19 02/24/19 Range/Units 13:09 13:07 12:40 WBC (4.8-10.8) K/uL RBC (4.40-5.90) Mil/uL Hgb (12.0-18.0) g/dL Hct (35.0-51.0) % MCV (80.0-94.0) fl MCH (27.0-31.0) pg MCHC (33.0-37.0) g/dL RDW (11.5-14.5) % Plt Count (130-400) K/uL MPV (7.2-11.7) fl Neut % (Auto) (50.0-75.0) % Lymph % (Auto) (20.0-40.0) % [place] % (Auto) (0.0-10.0) % Eos % (Auto) (0.0-4.0) % Baso % (Auto) (0.0-2.0) % Neut # (Auto) (1.8-7.0) K/uL Lymph # (Auto) (1.0-4.3) K/uL [place] # (Auto) (0.0-0.8) K/uL Eos # (Auto) (0.0-0.7) K/uL Baso # (Auto) (0.0-0.2) K/uL Neutrophils % (Manual) (42-75) % Band Neutrophils % (0-2) % Lymphocytes % (Manual) (20-50) % Monocytes % (Manual) (0-10) % Metamyelocytes % (0-0) % Platelet Estimate (NORMAL) Large Platelets Poikilocytosis (manual Anisocytosis (manual) Microcytosis (manual) Tear Drop Cells Ovalocytes Newberry Cells PT (9.8-13.1) Seconds INR APTT (25.6-37.1) Seconds pCO2 (35-45) mm/Hg pO2 (80-100) mm/Hg HCO3 (21-28) mmol/L ABG pH (7.35-7.45) ABG Total CO2 (22-28) mmol/L ABG O2 Saturation (95-98) % ABG O2 Content (15-23) ML/dL ABG Base Excess (-2.0-3.0) mmol/L ABG Hemoglobin (11.7-17.4) g/dL ABG Carboxyhemoglobin (0.5-1.5) % POC ABG HHb (Measured) (0.0-5.0) % ABG Methemoglobin (0.0-3.0) % ABG O2 Capacity (16-24) mL/dL [place] Test ABG Potassium (3.6-5.2) mmol/L A-a O2 Difference mm/Hg Hgb O2 Saturation (95.0-98.0) % Glucose (75-110) mg/dL Lactate (0.7-2.1) mmol/L Vent Mode Mechanical Rate FiO2 % Tidal Volume PEEP Crit Value Called To Crit Value Called By Crit Value Read Back Blood Gas Notified Time Sodium (132-148) mmol/l Potassium (3.6-5.0) MMOL/L Chloride (98-107) mmol/L Carbon Dioxide (22-30) mmol/L Anion Gap (10-20) BUN (9-20) mg/dl Creatinine (0.8-1.5) mg/dl Est GFR ( Amer) Est GFR (Non-Af Amer) POC Glucose (mg/dL) 56 L 20 L* (65-110) mg/dL Random Glucose (75-110) mg/dL Lactic Acid (0.7-2.1) mmol/L Calcium (8.4-10.2) mg/dL Phosphorus (2.5-4.5) mg/dl Magnesium (1.6-2.3) MG/DL Total Bilirubin (0.2-1.3) mg/dl AST (17-59) U/L ALT (21-72) U/L Alkaline Phosphatase (38-126) U/L Troponin I (0.00-0.120) ng/mL NT-Pro-B Natriuret Pep (0-900) pg/ml Total Protein (6.3-8.2) G/DL Albumin (3.5-5.0) g/dL Globulin (2.2-3.9) gm/dL Albumin/Globulin Ratio (1.0-2.1) TSH 3rd Generation (0.46-4.68) mIU/ML Arterial Blood Potassium (3.6-5.2) mmol/L Urine Color (YELLOW) Urine Clarity (Clear) Urine pH (5.0-8.0) Ur Specific [place] (1.003-1.030) Urine Protein (NEGATIVE) mg/dL Urine Glucose (UA) (NEGATIVE) mg/dL Urine Ketones (NEGATIVE) mg/dL Urine Blood (NEGATIVE) Urine Nitrate (NEGATIVE) Urine Bilirubin (NEGATIVE) Urine Urobilinogen (0.2-1.0) mg/dL Ur Leukocyte Esterase (Negative) Ab/uL Urine RBC (Auto) (0-3) /hpf Urine Microscopic WBC (0-5) /hpf Ur Squamous Epith Cells (0-5) /hpf Urine Bacteria (<OCC) Hyaline Casts (0-2) /hpf Stool Occult Blood (NEGATIVE) Digoxin 2.2 H (0.8-2.0) ng/mL C. difficile Ag & Toxin (NEGATIVE) 02/24/19 02/24/19 02/24/19 Range/Units 12:40 12:40 12:40 WBC 3.9 L (4.8-10.8) K/uL RBC 3.72 L (4.40-5.90) Mil/uL Hgb 9.9 L (12.0-18.0) g/dL Hct 31.8 L (35.0-51.0) % MCV 85.5 (80.0-94.0) fl MCH 26.5 L (27.0-31.0) pg MCHC 31.0 L (33.0-37.0) g/dL RDW 23.1 H (11.5-14.5) % Plt Count 116 L (130-400) K/uL MPV 10.8 (7.2-11.7) fl Neut % (Auto) 82.5 H (50.0-75.0) % Lymph % (Auto) 16.8 L (20.0-40.0) % [place] % (Auto) 0.6 (0.0-10.0) % Eos % (Auto) 0.0 (0.0-4.0) % Baso % (Auto) 0.1 (0.0-2.0) % Neut # (Auto) 3.2 (1.8-7.0) K/uL Lymph # (Auto) 0.7 L (1.0-4.3) K/uL [place] # (Auto) 0.0 (0.0-0.8) K/uL Eos # (Auto) 0.0 (0.0-0.7) K/uL Baso # (Auto) 0.0 (0.0-0.2) K/uL Neutrophils % (Manual) 73 (42-75) % Band Neutrophils % 10 H (0-2) % Lymphocytes % (Manual) 11 L (20-50) % Monocytes % (Manual) 5 (0-10) % Metamyelocytes % 1 H (0-0) % Platelet Estimate Decreased L (NORMAL) Large Platelets Present Poikilocytosis (manual Slight Anisocytosis (manual) Slight Microcytosis (manual) Slight Tear Drop Cells Slight Ovalocytes Moderate Newberry Cells Slight PT 50.3 H* (9.8-13.1) Seconds INR 4.4 APTT 59.3 H (25.6-37.1) Seconds pCO2 (35-45) mm/Hg pO2 (80-100) mm/Hg HCO3 (21-28) mmol/L ABG pH (7.35-7.45) ABG Total CO2 (22-28) mmol/L ABG O2 Saturation (95-98) % ABG O2 Content (15-23) ML/dL ABG Base Excess (-2.0-3.0) mmol/L ABG Hemoglobin (11.7-17.4) g/dL ABG Carboxyhemoglobin (0.5-1.5) % POC ABG HHb (Measured) (0.0-5.0) % ABG Methemoglobin (0.0-3.0) % ABG O2 Capacity (16-24) mL/dL [place] Test ABG Potassium (3.6-5.2) mmol/L A-a O2 Difference mm/Hg Hgb O2 Saturation (95.0-98.0) % Glucose (75-110) mg/dL Lactate (0.7-2.1) mmol/L Vent Mode Mechanical Rate FiO2 % Tidal Volume PEEP Crit Value Called To Crit Value Called By Crit Value Read Back Blood Gas Notified Time Sodium 148 (132-148) mmol/l Potassium 4.1 (3.6-5.0) MMOL/L Chloride 124 H (98-107) mmol/L Carbon Dioxide 11 L* D (22-30) mmol/L Anion Gap 17 (10-20) BUN 41 H (9-20) mg/dl Creatinine 2.1 H (0.8-1.5) mg/dl Est GFR ( Amer) 37 Est GFR (Non-Af Amer) 31 POC Glucose (mg/dL) (65-110) mg/dL Random Glucose 75 (75-110) mg/dL Lactic Acid (0.7-2.1) mmol/L Calcium 7.0 L (8.4-10.2) mg/dL Phosphorus 5.4 H (2.5-4.5) mg/dl Magnesium 2.2 (1.6-2.3) MG/DL Total Bilirubin 0.3 (0.2-1.3) mg/dl AST 19 (17-59) U/L ALT 26 (21-72) U/L Alkaline Phosphatase 55 (38-126) U/L Troponin I 0.0560 (0.00-0.120) ng/mL NT-Pro-B Natriuret Pep 79977 H (0-900) pg/ml Total Protein 4.4 L (6.3-8.2) G/DL Albumin 1.9 L (3.5-5.0) g/dL Globulin 2.5 (2.2-3.9) gm/dL Albumin/Globulin Ratio 0.8 L (1.0-2.1) TSH 3rd Generation (0.46-4.68) mIU/ML Arterial Blood Potassium (3.6-5.2) mmol/L Urine Color (YELLOW) Urine Clarity (Clear) Urine pH (5.0-8.0) Ur Specific [place] (1.003-1.030) Urine Protein (NEGATIVE) mg/dL Urine Glucose (UA) (NEGATIVE) mg/dL Urine Ketones (NEGATIVE) mg/dL Urine Blood (NEGATIVE) Urine Nitrate (NEGATIVE) Urine Bilirubin (NEGATIVE) Urine Urobilinogen (0.2-1.0) mg/dL Ur Leukocyte Esterase (Negative) Ba/uL Urine RBC (Auto) (0-3) /hpf Urine Microscopic WBC (0-5) /hpf Ur Squamous Epith Cells (0-5) /hpf Urine Bacteria (<OCC) Hyaline Casts (0-2) /hpf Stool Occult Blood (NEGATIVE) Digoxin (0.8-2.0) ng/mL C. difficile Ag & Toxin (NEGATIVE) Laboratory Results - last 24 hr 02/24/19 02/24/19 02/24/19 12:40 12:40 12:40 WBC 3.9 L RBC 3.72 L Hgb 9.9 L Hct 31.8 L MCV 85.5 MCH 26.5 L MCHC 31.0 L RDW 23.1 H Plt Count 116 L MPV 10.8 Neut % (Auto) 82.5 H Lymph % (Auto) 16.8 L [place] % (Auto) 0.6 Eos % (Auto) 0.0 Baso % (Auto) 0.1 Neut # (Auto) 3.2 Lymph # (Auto) 0.7 L [place] # (Auto) 0.0 Eos # (Auto) 0.0 Baso # (Auto) 0.0 Neutrophils % (Manual) 73 Band Neutrophils % 10 H Lymphocytes % (Manual) 11 L Monocytes % (Manual) 5 Metamyelocytes % 1 H Platelet Estimate Decreased L Large Platelets Present Poikilocytosis (manual Slight Anisocytosis (manual) Slight Microcytosis (manual) Slight Tear Drop Cells Slight Ovalocytes Moderate Adarsh Cells Slight PT 50.3 H* INR 4.4 APTT 59.3 H pCO2 pO2 HCO3 ABG pH ABG Total CO2 ABG O2 Saturation ABG O2 Content ABG Base Excess ABG Hemoglobin ABG Carboxyhemoglobin POC ABG HHb (Measured) ABG Methemoglobin ABG O2 Capacity [place] Test ABG Potassium A-a O2 Difference Hgb O2 Saturation Glucose Lactate Vent Mode Mechanical Rate FiO2 Tidal Volume PEEP Crit Value Called To Crit Value Called By Crit Value Read Back Blood Gas Notified Time Sodium 148 Potassium 4.1 Chloride 124 H Carbon Dioxide 11 L* D Anion Gap 17 BUN 41 H Creatinine 2.1 H Est GFR ( Amer) 37 Est GFR (Non-Af Amer) 31 POC Glucose (mg/dL) Random Glucose 75 Lactic Acid Calcium 7.0 L Phosphorus 5.4 H Magnesium 2.2 Total Bilirubin 0.3 AST 19 ALT 26 Alkaline Phosphatase 55 Troponin I 0.0560 NT-Pro-B Natriuret Pep 96033 H Total Protein 4.4 L Albumin 1.9 L Globulin 2.5 Albumin/Globulin Ratio 0.8 L TSH 3rd Generation Arterial Blood Potassium Urine Color Urine Clarity Urine pH Ur Specific [place] Urine Protein Urine Glucose (UA) Urine Ketones Urine Blood Urine Nitrate Urine Bilirubin Urine Urobilinogen Ur Leukocyte Esterase Urine RBC (Auto) Urine Microscopic WBC Ur Squamous Epith Cells Urine Bacteria Hyaline Casts Stool Occult Blood Digoxin C. difficile Ag & Toxin 02/24/19 02/24/19 02/24/19 12:40 13:07 13:09 WBC RBC Hgb Hct MCV MCH MCHC RDW Plt Count MPV Neut % (Auto) Lymph % (Auto) [place] % (Auto) Eos % (Auto) Baso % (Auto) Neut # (Auto) Lymph # (Auto) [place] # (Auto) Eos # (Auto) Baso # (Auto) Neutrophils % (Manual) Band Neutrophils % Lymphocytes % (Manual) Monocytes % (Manual) Metamyelocytes % Platelet Estimate Large Platelets Poikilocytosis (manual Anisocytosis (manual) Microcytosis (manual) Tear Drop Cells Ovalocytes Newberry Cells PT INR APTT pCO2 pO2 HCO3 ABG pH ABG Total CO2 ABG O2 Saturation ABG O2 Content ABG Base Excess ABG Hemoglobin ABG Carboxyhemoglobin POC ABG HHb (Measured) ABG Methemoglobin ABG O2 Capacity [place] Test ABG Potassium A-a O2 Difference Hgb O2 Saturation Glucose Lactate Vent Mode Mechanical Rate FiO2 Tidal Volume PEEP Crit Value Called To Crit Value Called By Crit Value Read Back Blood Gas Notified Time Sodium Potassium Chloride Carbon Dioxide Anion Gap BUN Creatinine Est GFR ( Amer) Est GFR (Non-Af Amer) POC Glucose (mg/dL) 20 L* 56 L Random Glucose Lactic Acid Calcium Phosphorus Magnesium Total Bilirubin AST ALT Alkaline Phosphatase Troponin I NT-Pro-B Natriuret Pep Total Protein Albumin Globulin Albumin/Globulin Ratio TSH 3rd Generation Arterial Blood Potassium Urine Color Urine Clarity Urine pH Ur Specific [place] Urine Protein Urine Glucose (UA) Urine Ketones Urine Blood Urine Nitrate Urine Bilirubin Urine Urobilinogen Ur Leukocyte Esterase Urine RBC (Auto) Urine Microscopic WBC Ur Squamous Epith Cells Urine Bacteria Hyaline Casts Stool Occult Blood Digoxin 2.2 H C. difficile Ag & Toxin 02/24/19 02/24/19 02/24/19 14:55 15:55 16:33 WBC RBC Hgb Hct MCV MCH MCHC RDW Plt Count MPV Neut % (Auto) Lymph % (Auto) [place] % (Auto) Eos % (Auto) Baso % (Auto) Neut # (Auto) Lymph # (Auto) [place] # (Auto) Eos # (Auto) Baso # (Auto) Neutrophils % (Manual) Band Neutrophils % Lymphocytes % (Manual) Monocytes % (Manual) Metamyelocytes % Platelet Estimate Large Platelets Poikilocytosis (manual Anisocytosis (manual) Microcytosis (manual) Tear Drop Cells Ovalocytes Adarsh Cells PT INR APTT pCO2 pO2 HCO3 ABG pH ABG Total CO2 ABG O2 Saturation ABG O2 Content ABG Base Excess ABG Hemoglobin ABG Carboxyhemoglobin POC ABG HHb (Measured) ABG Methemoglobin ABG O2 Capacity [place] Test ABG Potassium A-a O2 Difference Hgb O2 Saturation Glucose Lactate Vent Mode Mechanical Rate FiO2 Tidal Volume PEEP Crit Value Called To Crit Value Called By Crit Value Read Back Blood Gas Notified Time Sodium Potassium Chloride Carbon Dioxide Anion Gap BUN Creatinine Est GFR ( Amer) Est GFR (Non-Af Amer) POC Glucose (mg/dL) 79 39 L Random Glucose Lactic Acid 6.1 H* Calcium Phosphorus Magnesium Total Bilirubin AST ALT Alkaline Phosphatase Troponin I NT-Pro-B Natriuret Pep Total Protein Albumin Globulin Albumin/Globulin Ratio TSH 3rd Generation Arterial Blood Potassium Urine Color Urine Clarity Urine pH Ur Specific [place] Urine Protein Urine Glucose (UA) Urine Ketones Urine Blood Urine Nitrate Urine Bilirubin Urine Urobilinogen Ur Leukocyte Esterase Urine RBC (Auto) Urine Microscopic WBC Ur Squamous Epith Cells Urine Bacteria Hyaline Casts Stool Occult Blood Digoxin C. difficile Ag & Toxin 02/24/19 02/24/19 02/24/19 17:11 18:45 20:04 WBC RBC Hgb Hct MCV MCH MCHC RDW Plt Count MPV Neut % (Auto) Lymph % (Auto) [place] % (Auto) Eos % (Auto) Baso % (Auto) Neut # (Auto) Lymph # (Auto) [place] # (Auto) Eos # (Auto) Baso # (Auto) Neutrophils % (Manual) Band Neutrophils % Lymphocytes % (Manual) Monocytes % (Manual) Metamyelocytes % Platelet Estimate Large Platelets Poikilocytosis (manual Anisocytosis (manual) Microcytosis (manual) Tear Drop Cells Ovalocytes Adarsh Cells PT INR APTT pCO2 pO2 HCO3 ABG pH ABG Total CO2 ABG O2 Saturation ABG O2 Content ABG Base Excess ABG Hemoglobin ABG Carboxyhemoglobin POC ABG HHb (Measured) ABG Methemoglobin ABG O2 Capacity [place] Test ABG Potassium A-a O2 Difference Hgb O2 Saturation Glucose Lactate Vent Mode Mechanical Rate FiO2 Tidal Volume PEEP Crit Value Called To Crit Value Called By Crit Value Read Back Blood Gas Notified Time Sodium Potassium Chloride Carbon Dioxide Anion Gap BUN Creatinine Est GFR ( Amer) Est GFR (Non-Af Amer) POC Glucose (mg/dL) 60 L Random Glucose Lactic Acid 7.8 H* Calcium Phosphorus Magnesium Total Bilirubin AST ALT Alkaline Phosphatase Troponin I NT-Pro-B Natriuret Pep Total Protein Albumin Globulin Albumin/Globulin Ratio TSH 3rd Generation Arterial Blood Potassium Urine Color Urine Clarity Urine pH Ur Specific [place] Urine Protein Urine Glucose (UA) Urine Ketones Urine Blood Urine Nitrate Urine Bilirubin Urine Urobilinogen Ur Leukocyte Esterase Urine RBC (Auto) Urine Microscopic WBC Ur Squamous Epith Cells Urine Bacteria Hyaline Casts Stool Occult Blood Positive H Digoxin C. difficile Ag & Toxin 02/24/19 02/24/19 02/24/19 20:28 21:39 22:21 WBC RBC Hgb Hct MCV MCH MCHC RDW Plt Count MPV Neut % (Auto) Lymph % (Auto) [place] % (Auto) Eos % (Auto) Baso % (Auto) Neut # (Auto) Lymph # (Auto) [place] # (Auto) Eos # (Auto) Baso # (Auto) Neutrophils % (Manual) Band Neutrophils % Lymphocytes % (Manual) Monocytes % (Manual) Metamyelocytes % Platelet Estimate Large Platelets Poikilocytosis (manual Anisocytosis (manual) Microcytosis (manual) Tear Drop Cells Ovalocytes Adarsh Cells PT INR APTT pCO2 25 L pO2 72 L HCO3 12.2 L ABG pH 7.21 L ABG Total CO2 10.8 L ABG O2 Saturation 93.2 L ABG O2 Content 12.4 L ABG Base Excess -16.3 L ABG Hemoglobin 9.4 L ABG Carboxyhemoglobin 0 L POC ABG HHb (Measured) 6.8 H ABG Methemoglobin 0.0 ABG O2 Capacity 13.3 L [place] Test Yes ABG Potassium A-a O2 Difference 610.0 Hgb O2 Saturation 93.2 L Glucose Lactate Vent Mode Mechanical Rate FiO2 100.0 Tidal Volume PEEP Crit Value Called To Crit Value Called By Crit Value Read Back Blood Gas Notified Time Sodium Potassium Chloride Carbon Dioxide Anion Gap BUN Creatinine Est GFR ( Amer) Est GFR (Non-Af Amer) POC Glucose (mg/dL) 109 35 L* Random Glucose Lactic Acid Calcium Phosphorus Magnesium Total Bilirubin AST ALT Alkaline Phosphatase Troponin I NT-Pro-B Natriuret Pep Total Protein Albumin Globulin Albumin/Globulin Ratio TSH 3rd Generation Arterial Blood Potassium Urine Color Urine Clarity Urine pH Ur Specific [place] Urine Protein Urine Glucose (UA) Urine Ketones Urine Blood Urine Nitrate Urine Bilirubin Urine Urobilinogen Ur Leukocyte Esterase Urine RBC (Auto) Urine Microscopic WBC Ur Squamous Epith Cells Urine Bacteria Hyaline Casts Stool Occult Blood Digoxin C. difficile Ag & Toxin 02/24/19 02/24/19 02/25/19 23:35 23:56 00:00 WBC RBC Hgb Hct MCV MCH MCHC RDW Plt Count MPV Neut % (Auto) Lymph % (Auto) [place] % (Auto) Eos % (Auto) Baso % (Auto) Neut # (Auto) Lymph # (Auto) [place] # (Auto) Eos # (Auto) Baso # (Auto) Neutrophils % (Manual) Band Neutrophils % Lymphocytes % (Manual) Monocytes % (Manual) Metamyelocytes % Platelet Estimate Large Platelets Poikilocytosis (manual Anisocytosis (manual) Microcytosis (manual) Tear Drop Cells Ovalocytes Adarsh Cells PT INR APTT pCO2 pO2 HCO3 ABG pH ABG Total CO2 ABG O2 Saturation ABG O2 Content ABG Base Excess ABG Hemoglobin ABG Carboxyhemoglobin POC ABG HHb (Measured) ABG Methemoglobin ABG O2 Capacity [place] Test ABG Potassium A-a O2 Difference Hgb O2 Saturation Glucose Lactate Vent Mode Mechanical Rate FiO2 Tidal Volume PEEP Crit Value Called To Crit Value Called By Crit Value Read Back Blood Gas Notified Time Sodium Potassium Chloride Carbon Dioxide Anion Gap BUN Creatinine Est GFR ( Amer) Est GFR (Non-Af Amer) POC Glucose (mg/dL) 51 L Random Glucose Lactic Acid 8.7 H* Calcium Phosphorus Magnesium Total Bilirubin AST ALT Alkaline Phosphatase Troponin I NT-Pro-B Natriuret Pep Total Protein Albumin Globulin Albumin/Globulin Ratio TSH 3rd Generation Arterial Blood Potassium Urine Color Urine Clarity Urine pH Ur Specific [place] Urine Protein Urine Glucose (UA) Urine Ketones Urine Blood Urine Nitrate Urine Bilirubin Urine Urobilinogen Ur Leukocyte Esterase Urine RBC (Auto) Urine Microscopic WBC Ur Squamous Epith Cells Urine Bacteria Hyaline Casts Stool Occult Blood Digoxin C. difficile Ag & Toxin Positive toxin 02/25/19 02/25/19 02/25/19 04:40 05:18 05:18 WBC 0.9 L* D RBC 3.13 L Hgb 8.4 L Hct 27.3 L MCV 87.2 MCH 26.8 L MCHC 30.7 L RDW 22.4 H Plt Count 81 L D MPV 11.5 Neut % (Auto) 65.0 Lymph % (Auto) 34.0 [place] % (Auto) 0.9 Eos % (Auto) 0.1 Baso % (Auto) 0.0 Neut # (Auto) 0.6 L Lymph # (Auto) 0.3 L [place] # (Auto) 0.0 Eos # (Auto) 0.0 Baso # (Auto) 0.0 Neutrophils % (Manual) Band Neutrophils % Lymphocytes % (Manual) Monocytes % (Manual) Metamyelocytes % Platelet Estimate Large Platelets Poikilocytosis (manual Anisocytosis (manual) Microcytosis (manual) Tear Drop Cells Ovalocytes Newberry Cells PT INR APTT pCO2 35 pO2 69 L HCO3 12.8 L ABG pH 7.16 L* ABG Total CO2 13.6 L ABG O2 Saturation 93.1 L ABG O2 Content ABG Base Excess -15.2 L ABG Hemoglobin ABG Carboxyhemoglobin POC ABG HHb (Measured) ABG Methemoglobin ABG O2 Capacity [place] Test Yes ABG Potassium 4.0 A-a O2 Difference 600.0 Hgb O2 Saturation Glucose 123 H Lactate 7.6 H* Vent Mode Nrm Mechanical Rate FiO2 100.0 Tidal Volume PEEP Crit Value Called To emely Mason rn Crit Value Called By 302 Crit Value Read Back Y Blood Gas Notified Time 447 Sodium 142.0 146 Potassium 3.4 L Chloride 115.0 H 117 H Carbon Dioxide 16 L Anion Gap 16 BUN 45 H Creatinine 2.3 H Est GFR ( Amer) 33 Est GFR (Non-Af Amer) 28 POC Glucose (mg/dL) Random Glucose 120 H Lactic Acid Calcium 6.0 L* Phosphorus 4.5 Magnesium 1.9 Total Bilirubin 0.2 AST 36 ALT 29 Alkaline Phosphatase 36 L D Troponin I NT-Pro-B Natriuret Pep Total Protein 3.7 L Albumin 1.5 L D Globulin 2.2 Albumin/Globulin Ratio 0.7 L TSH 3rd Generation 1.13 Arterial Blood Potassium 4.0 Urine Color Urine Clarity Urine pH Ur Specific [place] Urine Protein Urine Glucose (UA) Urine Ketones Urine Blood Urine Nitrate Urine Bilirubin Urine Urobilinogen Ur Leukocyte Esterase Urine RBC (Auto) Urine Microscopic WBC Ur Squamous Epith Cells Urine Bacteria Hyaline Casts Stool Occult Blood Digoxin C. difficile Ag & Toxin 02/25/19 02/25/19 02/25/19 05:18 07:30 09:40 WBC RBC Hgb Hct MCV MCH MCHC RDW Plt Count MPV Neut % (Auto) Lymph % (Auto) [place] % (Auto) Eos % (Auto) Baso % (Auto) Neut # (Auto) Lymph # (Auto) [place] # (Auto) Eos # (Auto) Baso # (Auto) Neutrophils % (Manual) Band Neutrophils % Lymphocytes % (Manual) Monocytes % (Manual) Metamyelocytes % Platelet Estimate Large Platelets Poikilocytosis (manual Anisocytosis (manual) Microcytosis (manual) Tear Drop Cells Ovalocytes Newberry Cells PT 70.5 H* D INR 6.2 APTT 74.6 H pCO2 39 pO2 54 L HCO3 15.5 L ABG pH 7.20 L ABG Total CO2 16.4 L ABG O2 Saturation 89.6 L ABG O2 Content 11.5 L ABG Base Excess -12.0 L ABG Hemoglobin 9.1 L ABG Carboxyhemoglobin 0 L POC ABG HHb (Measured) 10.4 H ABG Methemoglobin 0.0 ABG O2 Capacity 12.8 L [place] Test Yes ABG Potassium A-a O2 Difference 610.0 Hgb O2 Saturation 89.6 L Glucose Lactate Vent Mode A/c Mechanical Rate 18 FiO2 100.0 Tidal Volume 450 PEEP 5 Crit Value Called To Dr janey aguero Crit Value Called By 15 Crit Value Read Back Y Blood Gas Notified Time 845 Sodium Potassium Chloride Carbon Dioxide Anion Gap BUN Creatinine Est GFR ( Amer) Est GFR (Non-Af Amer) POC Glucose (mg/dL) Random Glucose Lactic Acid Calcium Phosphorus Magnesium Total Bilirubin AST ALT Alkaline Phosphatase Troponin I NT-Pro-B Natriuret Pep Total Protein Albumin Globulin Albumin/Globulin Ratio TSH 3rd Generation Arterial Blood Potassium Urine Color Yellow Urine Clarity Slighty-cloudy Urine pH 5.0 Ur Specific [place] 1.018 Urine Protein 30 Urine Glucose (UA) Neg Urine Ketones Negative Urine Blood Moderate Urine Nitrate Negative Urine Bilirubin Negative Urine Urobilinogen 0.2-1.0 Ur Leukocyte Esterase Trace Urine RBC (Auto) 11 H Urine Microscopic WBC 4 Ur Squamous Epith Cells < 1 Urine Bacteria Few H Hyaline Casts 0-2 Stool Occult Blood Digoxin C. difficile Ag & Toxin Radiology Impressions: Radiology Impressions Abdomen Ultrasound 02/24/19 11:45 IMPRESSION: Small liver cyst. Overall decreased echogenicity of the liver with some prominence of the portal triads. Appearance has been described with entity such as hepatitis. No evidence of gallstones or gallbladder wall thickening. Nonvisualization of the pancreas. No hydronephrosis of the right kidney is seen. Left kidney not well seen as noted on prior CT scan. Chest X-Ray 02/24/19 12:59 IMPRESSION: Status post left internal jugular vein CVP. No pneumothorax. Stable right PICC line placement. Distended gastric air bubble. Mild improvement aeration at the right lung base. Small effusions. Chest X-Ray 02/25/19 06:00 IMPRESSION: Bibasilar infiltrates and mild congestive change. Probable small bilateral pleural effusion. Findings suspicious for pulmonary edema. Fingerstick Blood Sugar Results: 143 Critical Care Progress Note - Nutrition Nutrition: Nutrition Category Date Time Status Regular Diet [DIET] Diets 02/21/19 Dinner Active Assessment/Plan - Assessment and Plan (Free Text) Assessment: -Tachycardia/SVT:on amiodarone + dig pushed once, rate controlled -septic shock: serial lactic q4hrs,continue bicarb ggt, start norepi to keep MAP >65, add vaso, GNR bacteremia, continue abx regimen (PCN allergic) -Diarrhea(+)C. diff) / RLL lobar atelectatiss/suspect as source of sepsis:continue aztreonam + linezolid + flagyl, obtain CT abd/pelvis, oral vanco started -Diet: intubated, no further risk of aspiration, ng placed, start gastrotrotropic feeds (pt hypoglycemic) -Coagulopathy: etiology unknown (no coumadin given), no active bleeding, serial cbc, transfuse to keep hemodynamic stability, vitamin K as likely vitamin deficiency -Hypoxic respiratory failure: large VQ mismatch (RLL), unlikely PE (cannot exclude as patient has renal failure (risk of IV contrast renal failure), continue to mointor PTT/INR, -JESUS: etiology unknown, check US kidneys, monitor urine output -chronic systolic/diastolic heart failure: BNP high, obtain echo, monitor urine output -dvt ppx: INR >2.0, SCDs -PUD ppx protonix -Prognosis guarded as patietn has multiorgan failure (MOF) -d/w patient's son and informed him of the critical nature of diagnosis cc time 36 -CT abd/pelvis pending - Date & Time Date: 02/25/19 Time: 12:04
--- NOTE | 2019-02-25 12:26 | RAD ---
Date of service: 02/25/2019 HISTORY: Post intubation CXR COMPARISON: 02/25/2019 at 5:29 a.m. TECHNIQUE: 1 view obtained. FINDINGS: LUNGS: Bibasilar opacities persist. PLEURA: Bilateral small pleural effusion. No pneumothorax. CARDIOVASCULAR: No aortic atherosclerotic calcification present. Normal cardiac size. ETT and left IJ central venous catheter unchanged. New nasogastric tube extends to left upper quadrant of abdomen. Right PICC catheter noted, likely terminating in the region of the superior vena cava. OSSEOUS STRUCTURES: No significant abnormalities. VISUALIZED UPPER ABDOMEN: Normal. OTHER FINDINGS: None. IMPRESSION: New nasogastric tube. Otherwise no significant change.
[2019-02-25] MEDS: Albumin Human 25% (12.5 gm/50 ml) IV SCH ×3 (12:44→21:19)
[2019-02-25] MEDS ORDERED: Dexmedetomidine Hydrochloride 400 MCG in Sodium Chloride 0.9% 96 ML IV ONE (13:02)
--- NOTE | 2019-02-25 13:08 | CP.PCM.PN ---
Subjective - Date & Time of Evaluation Date of Evaluation: 02/25/19 Time of Evaluation: 12:00 - Subjective Subjective: Palliative Care examined patient , family meeting held today Objective - Vital Signs/Intake and Output Vital Signs (last 24 hours): Temp Pulse Resp BP Pulse Ox 98.4 F 113 H 23 101/42 L 94 L 02/25/19 08:00 02/25/19 08:00 02/25/19 08:00 02/25/19 08:00 02/25/19 08:00 Intake and Output: 02/25/19 02/25/19 06:59 18:59 Intake Total 161.7 0 Balance 161.7 0 - Medications Medications: Current Medications Acetaminophen (Tylenol 650 Mg Supp) 650 mg [place] Q6 PRN PRN Reason: Fever >100.4 F Last Admin: 02/24/19 23:50 Dose: 650 mg Albumin Human (Albumin Human 25% (12.5 Gm/50 Ml)) 25 gm IV Q6H [facility] Stop: 02/26/19 01:46 Last Admin: 02/25/19 12:44 Dose: 25 gm Albuterol/Ipratropium (Duoneb 3 Mg/0.5 Mg (3 Ml) Ud) 3 ml INH RQ6 PRN PRN Reason: Shortness of Breath Atorvastatin Calcium (Lipitor) 40 mg PO DAILY [facility] Last Admin: 02/25/19 10:25 Dose: Not Given Dextrose (Glutose 15) 0 gm PO ONCE PRN; Protocol PRN Reason: Hypoglycemia Protocol Dextrose (Dextrose 50% Inj) 0 ml IV Q1H PRN; Protocol PRN Reason: Hypoglycemia Protocol Last Admin: 02/25/19 04:53 Dose: 50 ml Dimethicone (Proshield Plus Skin Protectant) 1 applic TOP Q8 PRN PRN Reason: derm Last Admin: 02/14/19 09:50 Dose: 1 applic Ergocalciferol (Drisdol 50,000 Intl Units Cap) 1 cap PO FR [facility] Last Admin: 02/22/19 16:04 Dose: 1 cap Glucagon (Glucagen Diagnostic Kit) 0 mg IM STAT PRN; Protocol PRN Reason: Hypoglycemia Protocol Hydrocortisone Sodium Succinate (Solu-Cortef) 100 mg IV Q8 [facility] Last Admin: 02/25/19 10:26 Dose: 100 mg Iron Sucrose 100 mg/ Sodium (Chloride) 105 mls @ 105 mls/hr IVPB DAILY [facility] Last Admin: 02/12/19 12:07 Dose: 105 mls/hr Norepinephrine Bitartrate 4 mg (/ Dextrose) 254 mls @ 9.53 mls/hr IV .Q24H [facility]; Protocol Last Titration: 02/25/19 11:59 Dose: 7.5 mcg/min, 28.58 mls/hr Metronidazole (Flagyl 500mg/100ml Ns) 100 mls @ 100 mls/hr IVPB Q8 [facility]; Protocol Last Admin: 02/25/19 10:24 Dose: 100 mls/hr Linezolid (Zyvox 600mg/300ml D5w) 600 mg in 300 mls @ 300 mls/hr IVPB Q12 [facility]; Protocol Last Admin: 02/25/19 10:28 Dose: 300 mls/hr Amiodarone HCl 450 mg/ Sodium (Chloride) 259 mls @ 17.27 mls/hr IVPB .Q15H [facility]; Protocol Last Admin: 02/24/19 23:12 Dose: 17.27 mls/hr Aztreonam 1 gm/ Sodium (Chloride) 100 mls @ 100 mls/hr IVPB Q8H [facility]; Protocol Last Admin: 02/25/19 10:23 Dose: 100 mls/hr Vasopressin 100 units/ Sodium (Chloride) 105 mls @ 2.52 mls/hr IV .Q24H [facility]; Protocol Dexmedetomidine HCl 400 mcg/ (Sodium Chloride) 100 mls @ 3.52 mls/hr IV .Q24H [facility]; Protocol Stop: 02/26/19 13:01 Insulin Human Regular (Humulin R) 0 units SC ACHS [facility]; Protocol Last Admin: 02/25/19 12:03 Dose: Not Given Lidocaine (Lidoderm) 1 ea TD DAILY [facility] Last Admin: 02/25/19 10:32 Dose: 1 ea Memantine (Namenda) 10 mg PO BID [facility] Last Admin: 02/25/19 10:25 Dose: Not Given Ondansetron HCl (Zofran Inj) 4 mg IVP Q4 PRN PRN Reason: Nausea/Vomiting Last Admin: 02/22/19 15:57 Dose: 4 mg Sucralfate (Carafate Oral Susp) 1 gm PO QID [facility] Last Admin: 02/25/19 10:23 Dose: Not Given Tamsulosin HCl (Flomax) 0.4 mg PO DAILY [facility] Last Admin: 02/25/19 10:25 Dose: Not Given Vancomycin HCl (Vancocin (Oral/Rectal Use)) 500 mg PO Q6 [facility]; Protocol Last Admin: 02/25/19 10:30 Dose: 500 mg - Labs Labs: 02/25/19 05:18 02/25/19 05:18 PT 70.5 Seconds (9.8-13.1) H* D 02/25/19 05:18 INR 6.2 02/25/19 05:18 APTT 74.6 Seconds (25.6-37.1) H 02/25/19 05:18 - Constitutional Appears: Chronically Ill - Head Exam Head Exam: ATRAUMATIC, NORMAL INSPECTION, NORMOCEPHALIC - Eye Exam Eye Exam: Normal appearance - ENT Exam ENT Exam: Mucous Membranes Moist - Respiratory Exam Additional comments: intubated on vent - Cardiovascular Exam Cardiovascular Exam: Tachycardia - GI/Abdominal Exam Additional comments: has colostomy - Neurological Exam Neurological Exam: Alert - Psychiatric Exam Psychiatric exam: Flat Affect - Skin Skin Exam: Dry, Pallor, Warm Assessment and Plan - Assessment and Plan (Free Text) Assessment: Palliative Care Goals of Care: Family meeting had with patient's and 2 sons. The severity of the patient's condition was discussed and they all verbalized understanding. Patient currently does not have POLST form or Advance Directive. They are willing to document their wishes on POLST form after having further discussions with each other today. As per family, if ever the patient's condition was said to be terminal or irreversible, they know they would not want him to remain on any life sustaining measures. Patient and sons are joint decision makers. Because patient's does not speak Cambodian,They ask that patient's son, Andrei, Be point of contact and can be reached at [phone] Printing Bindery Assistant made aware Code Status: discussed with family. They would like patient to remain full code at this time. Printing Bindery Assistant made aware Impression Septic Shock Decrease Mobility Urinary Incontinence Needs further Goals of Care Discussion Suggestion Total assist with ADLs and repositioning Keep skin clean and dry Will continue Goals of Care discussion Palliative Care will remain on board as needed Time spent 40 min
[2019-02-25 13:50] LABS: ABG ALLEN TEST YES; ARTERIAL BLOOD GAS HCO3 14.6 mmol/L (21-28); ARTERIAL BLOOD GAS O2 SAT 91.8 % (95-98); ARTERIAL BLOOD GAS PCO2 33 mm/Hg (35-45); ARTERIAL BLOOD GAS PH 7.22 (7.35-7.45); ARTERIAL BLOOD GAS PO2 61 mm/Hg (80-100); ARTERIAL BLOOD GAS TCO2 14.5 mmol/L (22-28)
[2019-02-25] MEDS ORDERED: Sodium Chloride 0.9% 1,000 ML IV SCH (14:00)
--- NOTE | 2019-02-25 14:00 | CP.PCM.PN ---
Subjective - Date & Time of Evaluation Date of Evaluation: 02/25/19 Time of Evaluation: 01:00 - Subjective Subjective: Intubated on ventilator support Remains hypotensive Current BP 89/41 Events reviewed Objective - Vital Signs/Intake and Output Vital Signs (last 24 hours): Temp Pulse Resp BP Pulse Ox 98.4 F 113 H 23 101/42 L 94 L 02/25/19 08:00 02/25/19 08:00 02/25/19 08:00 02/25/19 08:00 02/25/19 08:00 Intake and Output: 02/25/19 02/25/19 06:59 18:59 Intake Total 161.7 0 Balance 161.7 0 - Medications Medications: Current Medications Acetaminophen (Tylenol 650 Mg Supp) 650 mg [place] Q6 PRN PRN Reason: Fever >100.4 F Last Admin: 02/24/19 23:50 Dose: 650 mg Albumin Human (Albumin Human 25% (12.5 Gm/50 Ml)) 25 gm IV Q6H [facility] Stop: 02/26/19 01:46 Last Admin: 02/25/19 12:44 Dose: 25 gm Albuterol/Ipratropium (Duoneb 3 Mg/0.5 Mg (3 Ml) Ud) 3 ml INH RQ6 PRN PRN Reason: Shortness of Breath Atorvastatin Calcium (Lipitor) 40 mg PO DAILY [facility] Last Admin: 02/25/19 10:25 Dose: Not Given Dextrose (Glutose 15) 0 gm PO ONCE PRN; Protocol PRN Reason: Hypoglycemia Protocol Dextrose (Dextrose 50% Inj) 0 ml IV Q1H PRN; Protocol PRN Reason: Hypoglycemia Protocol Last Admin: 02/25/19 04:53 Dose: 50 ml Dimethicone (Proshield Plus Skin Protectant) 1 applic TOP Q8 PRN PRN Reason: derm Last Admin: 02/14/19 09:50 Dose: 1 applic Ergocalciferol (Drisdol 50,000 Intl Units Cap) 1 cap PO FR [facility] Last Admin: 02/22/19 16:04 Dose: 1 cap Glucagon (Glucagen Diagnostic Kit) 0 mg IM STAT PRN; Protocol PRN Reason: Hypoglycemia Protocol Hydrocortisone Sodium Succinate (Solu-Cortef) 100 mg IV Q8 [facility] Last Admin: 02/25/19 10:26 Dose: 100 mg Iron Sucrose 100 mg/ Sodium (Chloride) 105 mls @ 105 mls/hr IVPB DAILY [facility] Last Admin: 02/12/19 12:07 Dose: 105 mls/hr Norepinephrine Bitartrate 4 mg (/ Dextrose) 254 mls @ 9.53 mls/hr IV .Q24H [facility]; Protocol Last Titration: 02/25/19 13:18 Dose: 10 mcg/min, 38.1 mls/hr Metronidazole (Flagyl 500mg/100ml Ns) 100 mls @ 100 mls/hr IVPB Q8 [facility]; Protocol Last Admin: 02/25/19 10:24 Dose: 100 mls/hr Linezolid (Zyvox 600mg/300ml D5w) 600 mg in 300 mls @ 300 mls/hr IVPB Q12 [facility]; Protocol Last Admin: 02/25/19 10:28 Dose: 300 mls/hr Amiodarone HCl 450 mg/ Sodium (Chloride) 259 mls @ 17.27 mls/hr IVPB .Q15H [facility]; Protocol Last Admin: 02/24/19 23:12 Dose: 17.27 mls/hr Aztreonam 1 gm/ Sodium (Chloride) 100 mls @ 100 mls/hr IVPB Q8H [facility]; Protocol Last Admin: 02/25/19 10:23 Dose: 100 mls/hr Vasopressin 100 units/ Sodium (Chloride) 105 mls @ 2.52 mls/hr IV .Q24H [facility]; Protocol Dexmedetomidine HCl 400 mcg/ (Sodium Chloride) 100 mls @ 3.52 mls/hr IV .Q24H [facility]; Protocol Stop: 02/26/19 13:01 Sodium Chloride (Sodium Chloride 0.9%) 1,000 mls @ 999 mls/hr IV .Q1H1M [facility] Stop: 02/25/19 15:00 Insulin Human Regular (Humulin R) 0 units SC ACHS [facility]; Protocol Last Admin: 02/25/19 12:03 Dose: Not Given Lidocaine (Lidoderm) 1 ea TD DAILY [facility] Last Admin: 02/25/19 10:32 Dose: 1 ea Memantine (Namenda) 10 mg PO BID [facility] Last Admin: 02/25/19 10:25 Dose: Not Given Ondansetron HCl (Zofran Inj) 4 mg IVP Q4 PRN PRN Reason: Nausea/Vomiting Last Admin: 02/22/19 15:57 Dose: 4 mg Sucralfate (Carafate Oral Susp) 1 gm PO QID [facility] Last Admin: 02/25/19 13:17 Dose: 1 gm Tamsulosin HCl (Flomax) 0.4 mg PO DAILY [facility] Last Admin: 02/25/19 10:25 Dose: Not Given Vancomycin HCl (Vancocin (Oral/Rectal Use)) 500 mg PO Q6 [facility]; Protocol Last Admin: 02/25/19 10:30 Dose: 500 mg - Labs Labs: 02/25/19 05:18 02/25/19 05:18 PT 70.5 Seconds (9.8-13.1) H* D 02/25/19 05:18 INR 6.2 02/25/19 05:18 APTT 74.6 Seconds (25.6-37.1) H 02/25/19 05:18 - Constitutional Appears: Toxic - Head Exam Head Exam: ATRAUMATIC, NORMOCEPHALIC - Eye Exam Additional comments: onjuntiva pale - ENT Exam ENT Exam: Mucous Membranes Moist - Respiratory Exam Additional comments: Lungs clear anteriorly. No wheezes - Cardiovascular Exam Cardiovascular Exam: Irregular Rhythm - GI/Abdominal Exam GI & Abdominal Exam: Firm - Extremities Exam Additional comments: Edema of both upper extremities Assessment and Plan - Assessment and Plan (Free Text) Assessment: Acute on CRF. Etiology of JESUS multifactorial Lt nephrectomy Septic shock, Coagulopathy, Elevated lactic acid levels S/P lap transverse colostomy A. fib - New onset D I bleed, Hx/o UC Plan: Urine out is low today BP support as needed to maintain SBP of 90/- On Abx Sepsis Mx per ICU team Continue to monitor renal parameters
[2019-02-25 15:34] LABS: INR 2.4; PROTHROMBIN TIME 26.8 Seconds (9.8-13.1)
[2019-02-25 15:36] LABS: PARTIAL THROMBOPLASTIN TIME 77.5 Seconds (25.6-37.1)
[2019-02-25] MEDS ORDERED: Dextrose 50% SYRINGE Inj (50 ml) IVP PRN (17:04)
[2019-02-25] MEDS ORDERED: Calcium Chloride 1000 mg/10 ml Syringe IV ONE (17:04)
[2019-02-25] MEDS: Amiodarone 450 MG in Sodium Chloride 0.9% 250 ML IVPB SCH (17:21)
[2019-02-25 18:01] LABS: BASO % 0.2 % (0.0-2.0); EOS % 1.4 % (0.0-4.0); LYMPH # 0.3 K/uL (1.0-4.3); LYMPH % 26.5 % (20.0-40.0); MEAN CELL VOLUME 85.3 fl (80.0-94.0); MEAN CORPUSCULAR HEMOGLOBIN 26.5 pg (27.0-31.0); MEAN CORPUSCULAR HGB CONC 31.1 g/dL (33.0-37.0); MEAN PLATELET VOLUME 10.8 fl (7.2-11.7); NEUT # 0.8 K/uL (1.8-7.0); NEUT % 70.9 % (50.0-75.0); NRBC % 0.2 % (0.0-0.0); RED CELL DISTRIBUTION WIDTH 22.4 % (11.5-14.5)
[2019-02-25 18:12] LABS: WHITE BLOOD COUNT 1.1 K/uL (4.8-10.8)
[2019-02-25 18:31] LABS: ALB/GLOB RATIO 0.9 (1.0-2.1); ALBUMIN 1.8 g/dL (3.5-5.0)
[2019-02-25 18:38] LABS: CALCIUM 5.3 mg/dL (8.4-10.2)
[2019-02-25] MEDS ORDERED: Sodium Bicarbonate 8.4% 50 MEQ in Dextrose 5% In Water 1,000 ML IV SCH (19:00)
[2019-02-25] MEDS: Albuterol-Ipratrop 3 mg / 0.5 (3 ml) UD INH SCH (19:03)
--- NOTE | 2019-02-25 19:19 | CP.PCM.PN ---
Subjective - Date & Time of Evaluation Date of Evaluation: 02/25/19 Time of Evaluation: 13:00 - Subjective Subjective: Patient developed septic shock yesterday . Has been on pressor support since. Started on broad spectrum antibiotics Objective - Vital Signs/Intake and Output Vital Signs (last 24 hours): Temp Pulse Resp BP Pulse Ox 100.4 F H 66 26 H 81/42 L 90 L 02/25/19 16:00 02/25/19 16:00 02/25/19 16:00 02/25/19 16:00 02/25/19 16:00 Intake and Output: 02/25/19 02/26/19 18:59 06:59 Intake Total 108.3 Balance 108.3 - Medications Medications: Current Medications Acetaminophen (Tylenol 650 Mg Supp) 650 mg [place] Q6 PRN PRN Reason: Fever >100.4 F Last Admin: 02/25/19 18:24 Dose: 650 mg Albumin Human (Albumin Human 25% (12.5 Gm/50 Ml)) 25 gm IV Q6H [facility] Stop: 02/26/19 01:46 Last Admin: 02/25/19 14:53 Dose: 25 gm Albuterol/Ipratropium (Duoneb 3 Mg/0.5 Mg (3 Ml) Ud) 3 ml INH RQ6 [facility] Last Admin: 02/25/19 19:03 Dose: 3 ml Atorvastatin Calcium (Lipitor) 40 mg PO DAILY [facility] Last Admin: 02/25/19 10:25 Dose: Not Given Dextrose (Glutose 15) 0 gm PO ONCE PRN; Protocol PRN Reason: Hypoglycemia Protocol Dextrose (Dextrose 50% Inj) 0 ml IV Q1H PRN; Protocol PRN Reason: Hypoglycemia Protocol Last Admin: 02/25/19 17:12 Dose: 50 ml Dextrose (Dextrose 50% Inj) 50 ml IVP Q1H PRN PRN Reason: Other Dimethicone (Proshield Plus Skin Protectant) 1 applic TOP Q8 PRN PRN Reason: derm Last Admin: 02/14/19 09:50 Dose: 1 applic Ergocalciferol (Drisdol 50,000 Intl Units Cap) 1 cap PO FR [facility] Last Admin: 02/22/19 16:04 Dose: 1 cap Glucagon (Glucagen Diagnostic Kit) 0 mg IM STAT PRN; Protocol PRN Reason: Hypoglycemia Protocol Hydrocortisone Sodium Succinate (Solu-Cortef) 100 mg IV Q8 [facility] Last Admin: 02/25/19 16:17 Dose: 100 mg Iron Sucrose 100 mg/ Sodium (Chloride) 105 mls @ 105 mls/hr IVPB DAILY [facility] Last Admin: 02/12/19 12:07 Dose: 105 mls/hr Metronidazole (Flagyl 500mg/100ml Ns) 100 mls @ 100 mls/hr IVPB Q8 [facility]; Protocol Last Admin: 02/25/19 16:15 Dose: 100 mls/hr Linezolid (Zyvox 600mg/300ml D5w) 600 mg in 300 mls @ 300 mls/hr IVPB Q12 [facility]; Protocol Last Admin: 02/25/19 10:28 Dose: 300 mls/hr Amiodarone HCl 450 mg/ Sodium (Chloride) 259 mls @ 17.27 mls/hr IVPB .Q15H [facility]; Protocol Last Admin: 02/25/19 17:21 Dose: Not Given Aztreonam 1 gm/ Sodium (Chloride) 100 mls @ 100 mls/hr IVPB Q8H [facility]; Protocol Last Admin: 02/25/19 16:14 Dose: 100 mls/hr Vasopressin 100 units/ Sodium (Chloride) 105 mls @ 2.52 mls/hr IV .Q24H [facility]; Protocol Last Admin: 02/25/19 15:12 Dose: 0.04 units/min, 2.52 mls/hr Dexmedetomidine HCl 400 mcg/ (Sodium Chloride) 100 mls @ 3.52 mls/hr IV .Q24H [facility]; Protocol Stop: 02/26/19 13:01 Last Titration: 02/25/19 16:11 Dose: 0 mcg/kg/hr, 0 mls/hr Norepinephrine Bitartrate 16 (mg/ Dextrose) 266 mls @ 14.96 mls/hr IV .[id number] [facility]; Protocol Stop: 02/26/19 09:47 Last Titration: 02/25/19 18:21 Dose: 15 mcg/min, 14.96 mls/hr Calcium Gluconate 2,000 mg/ (Sodium Chloride) 120 mls @ 50 mls/hr IVPB ONCE [facility] Stop: 02/25/19 21:23 Potassium Chloride (Potassium Chloride 20 Meq/100 Ml) 100 mls @ 50 mls/hr IVPB Q2 [facility] Stop: 02/26/19 01:59 Sodium Bicarbonate 50 meq/ (Dextrose) 1,050 mls @ 150 mls/hr IV .Q7H [facility] Stop: 02/26/19 18:58 Insulin Human Regular (Humulin R) 0 units SC ACHS [facility]; Protocol Last Admin: 02/25/19 17:03 Dose: Not Given Lidocaine (Lidoderm) 1 ea TD DAILY [facility] Last Admin: 02/25/19 10:32 Dose: 1 ea Memantine (Namenda) 10 mg PO BID [facility] Last Admin: 02/25/19 16:16 Dose: Not Given Ondansetron HCl (Zofran Inj) 4 mg IVP Q4 PRN PRN Reason: Nausea/Vomiting Last Admin: 02/22/19 15:57 Dose: 4 mg Sucralfate (Carafate Oral Susp) 1 gm PO QID [facility] Last Admin: 02/25/19 16:29 Dose: 1 gm Tamsulosin HCl (Flomax) 0.4 mg PO DAILY [facility] Last Admin: 02/25/19 10:25 Dose: Not Given Vancomycin HCl (Vancocin (Oral/Rectal Use)) 500 mg PO Q6 [facility]; Protocol Last Admin: 02/25/19 16:28 Dose: 500 mg - Labs Labs: 02/25/19 17:55 02/25/19 17:55 PT 26.8 Seconds (9.8-13.1) H D 02/25/19 14:55 INR 2.4 02/25/19 14:55 APTT 77.5 Seconds (25.6-37.1) H 02/25/19 14:55 - Head Exam Head Exam: ATRAUMATIC - Eye Exam Eye Exam: Normal appearance Pupil Exam: NORMAL ACCOMODATION - Respiratory Exam Respiratory Exam: Clear to Ausculation Bilateral - Cardiovascular Exam Cardiovascular Exam: REGULAR RHYTHM - GI/Abdominal Exam GI & Abdominal Exam: Distended Assessment and Plan (1) Colonic stricture Status: Acute (2) Septicemia Assessment & Plan: Patient with gram negative septicemia Requiring pressors for BP support. Also has C. diff toxin and receiving Vancomycin. Scheduled for CT of abdomen. Prognosis very guarded. Status: Acute
--- NOTE | 2019-02-25 19:46 | PN ---
DATE: 02/25/2019 SUBJECTIVE: The patient seen and examined. Interim events noted. Consults noted and appreciated. The patient developed respiratory failure and got intubated and transferred to intensive care unit. Currently, the patient is in intensive care unit on ventilator. The patient's family at bedside. Case and plan discussed with the patient's family at length. The patient is not able to provide informative history or review of systems. PHYSICAL EXAMINATION: GENERAL: The patient is already intubated, on mechanical ventilation via endotracheal tube, tolerating current vent setting well without any respiratory distress. VITAL SIGNS: Temperature 98.4, pulse 113, respirations 94, blood pressure 101/42. HEART: S1, S2 normal, regular. LUNGS: Good bilateral air exchange. ABDOMEN: Soft, nontender. Colostomy tube is in good position and functioning with stool. No sign of acute abdomen. No guarding. No rigidity. No rebound. EXTREMITIES: No edema, no calf swelling, no tenderness, no acute ischemia. CENTRAL NERVOUS SYSTEM: Exam is essentially unchanged and thorough DRY STARCH OPERATOR exam is not possible. DIAGNOSTIC DATA: WBC is 0.9, hemoglobin 8.4, hematocrit 27, platelets 81, this may be error. INR is 6.2. The pH 7.22, pCO2 14, pO2 91. Lactic acid level is 10.3. Sodium 146, potassium 3.4, chloride 117, bicarb 16, BUN 45, creatinine 2.3. Urinalysis is unremarkable. PLAN: Patient Accounting Representative, store administrator and palliative care consult noted and appreciated. Case was discussed with family at bedside at length. Case was discussed with worsted winder. Plan as ordered. Gatito Mathew MD
[2019-02-25] MEDS: Potassium Chloride 20 mEq 100 ML IVPB SCH ×2 (20:05→22:11)
[2019-02-25 21:32] LABS: ABG ALLEN TEST YES; ARTERIAL BLOOD GAS HCO3 15.1 mmol/L (21-28); ARTERIAL BLOOD GAS O2 SAT 92.9 % (95-98); ARTERIAL BLOOD GAS PCO2 31 mm/Hg (35-45); ARTERIAL BLOOD GAS PH 7.25 (7.35-7.45); ARTERIAL BLOOD GAS PO2 59 mm/Hg (80-100); ARTERIAL BLOOD GAS TCO2 14.6 mmol/L (22-28)
[2019-02-25 21:49] LABS: BASO % 0.1 % (0.0-2.0); EOS % 1.3 % (0.0-4.0); HEMOGLOBIN 7.7 g/dL (12.0-18.0); LYMPH # 0.3 K/uL (1.0-4.3); LYMPH % 25.7 % (20.0-40.0); MEAN CELL VOLUME 85.6 fl (80.0-94.0); MEAN CORPUSCULAR HEMOGLOBIN 26.5 pg (27.0-31.0); MEAN CORPUSCULAR HGB CONC 30.9 g/dL (33.0-37.0); MEAN PLATELET VOLUME 11.2 fl (7.2-11.7); MONO % 1.1 % (0.0-10.0); NEUT # 0.9 K/uL (1.8-7.0); NEUT % 71.8 % (50.0-75.0); NRBC % 0.2 % (0.0-0.0); RBC 2.9 Mil/uL (4.40-5.90); RED CELL DISTRIBUTION WIDTH 22.4 % (11.5-14.5)
[2019-02-25 22:01] LABS: WHITE BLOOD COUNT 1.3 K/uL (4.8-10.8)
[2019-02-25 22:07] LABS: ALBUMIN 1.9 g/dL (3.5-5.0)
[2019-02-25 22:08] LABS: ALB/GLOB RATIO 1.1 (1.0-2.1)
[2019-02-25 22:11] LABS: CALCIUM 5.9 mg/dL (8.4-10.2)
[2019-02-26] MEDS: Aztreonam 1 GM in Sodium Chloride 0.9% 100 ML IVPB SCH ×3 (00:10→16:52)
[2019-02-26] MEDS: metroNIDAZOLE 500mg/100ml NS 100 ML IVPB SCH ×3 (00:14→16:53)
[2019-02-26] MEDS: Potassium Chloride 20 mEq 100 ML IVPB SCH (00:15)
[2019-02-26] MEDS ORDERED: Chlorhexidine Gluconate 1 APPL/PKT TP ONE (00:30)
[2019-02-26] MEDS: Albumin Human 25% (12.5 gm/50 ml) IV SCH (01:15)
[2019-02-26] MEDS: Albuterol-Ipratrop 3 mg / 0.5 (3 ml) UD INH SCH ×4 (01:33→19:09)
[2019-02-26] MEDS ORDERED: Sodium Chloride 0.9% 1,000 ML IV SCH (03:00)
[2019-02-26] MEDS: Vancomycin 500 mg (Oral/Rectal USE) PO SCH ×3 (03:52→16:56)
[2019-02-26 05:20] LABS: BASO % 0.1 % (0.0-2.0); EOS % 1.1 % (0.0-4.0); HEMOGLOBIN 7.1 g/dL (12.0-18.0); LYMPH # 0.4 K/uL (1.0-4.3); LYMPH % 34.1 % (20.0-40.0); MEAN CELL VOLUME 86.1 fl (80.0-94.0); MEAN CORPUSCULAR HEMOGLOBIN 26.9 pg (27.0-31.0); MEAN CORPUSCULAR HGB CONC 31.2 g/dL (33.0-37.0); MEAN PLATELET VOLUME 10.3 fl (7.2-11.7); MONO % 0.8 % (0.0-10.0); NEUT # 0.8 K/uL (1.8-7.0); NEUT % 63.9 % (50.0-75.0); NRBC % 0.5 % (0.0-0.0); RBC 2.64 Mil/uL (4.40-5.90); RED CELL DISTRIBUTION WIDTH 22.7 % (11.5-14.5)
[2019-02-26 05:31] LABS: ALB/GLOB RATIO 1.2 (1.0-2.1); CALCIUM 5.5 mg/dL (8.4-10.2)
[2019-02-26 05:40] LABS: WHITE BLOOD COUNT 1.2 K/uL (4.8-10.8)
[2019-02-26 05:53] LABS: ABG ALLEN TEST YES; ARTERIAL BLOOD GAS HCO3 15.7 mmol/L (21-28); ARTERIAL BLOOD GAS O2 SAT 90.8 % (95-98); ARTERIAL BLOOD GAS PCO2 42 mm/Hg (35-45); ARTERIAL BLOOD GAS PH 7.18 (7.35-7.45); ARTERIAL BLOOD GAS PO2 56 mm/Hg (80-100)
[2019-02-26] MEDS ORDERED: Sodium Bicarbonate 7.5% (0.9 MEQ/ML) 50ML INJ IV ONE (05:56)
[2019-02-26 06:06] LABS: PROTHROMBIN TIME 22.6 Seconds (9.8-13.1)
[2019-02-26] MEDS: Sodium Bicarbonate 8.4% 150 MEQ in Dextrose 5% In Water 1,000 ML IV SCH (06:07)
[2019-02-26] MEDS: Amiodarone 450 MG in Sodium Chloride 0.9% 250 ML IVPB SCH (06:08)
[2019-02-26] MEDS: Dextrose 50% SYRINGE Inj (50 ml) IV PRN ×2 (06:21→18:27)
[2019-02-26] MEDS ORDERED: Dextrose 50% SYRINGE Inj (50 ml) IVP STA (06:44)
[2019-02-26 06:45] LABS: PARTIAL THROMBOPLASTIN TIME 102.8 Seconds (25.6-37.1)
[2019-02-26 08:31] LABS: ABG ALLEN TEST YES; ARTERIAL BLOOD GAS HCO3 17.1 mmol/L (21-28); ARTERIAL BLOOD GAS HEMOGLOBIN 7.6 g/dL (11.7-17.4); ARTERIAL BLOOD GAS O2 CAPACITY 10.8 mL/dL (16-24); ARTERIAL BLOOD GAS O2 CONTENT 9.2 ML/dL (15-23); ARTERIAL BLOOD GAS O2 SAT 85.5 % (95-98); ARTERIAL BLOOD GAS PCO2 46 mm/Hg (35-45); ARTERIAL BLOOD GAS PH 7.19 (7.35-7.45); ARTERIAL BLOOD GAS PO2 48 mm/Hg (80-100)
[2019-02-26] MEDS ORDERED: Sodium Bicarbonate 8.4% 150 MEQ in Dextrose 5% In Water 1,000 ML IV SCH (09:11)
[2019-02-26] MEDS: Sucralfate 1 gm/10 ml Oral Susp UD PO SCH ×3 (09:35→16:53)
[2019-02-26] MEDS: Insulin Regular 100 units/ml SC SCH ×3 (09:37→16:54)
--- NOTE | 2019-02-26 09:46 | CP.PCM.PN ---
<Yrn Moncada - Last Filed: 02/26/19 13:13> Subjective - Date & Time of Evaluation Date of Evaluation: 02/26/19 Time of Evaluation: 08:40 - Subjective Subjective: 78 y/o M was seen and examined by bedside with Dr Mathew. Pt is awake, follows you with eyesight, responsive to tactile and verbal stimuli. Pt is on mechanical keith tilation. Pt had fever overnight. Objective - Vital Signs/Intake and Output Vital Signs (last 24 hours): Temp Pulse Resp BP Pulse Ox 99.1 F 130 H 24 120/56 L 95 02/26/19 04:00 02/26/19 07:00 02/26/19 07:00 02/26/19 07:00 02/26/19 07:00 Intake and Output: 02/26/19 02/26/19 06:59 18:59 Intake Total 5618 Output Total 1962 Balance 3656 - Medications Medications: Current Medications Acetaminophen (Tylenol 650 Mg Supp) 650 mg [place] Q6 PRN PRN Reason: Fever >100.4 F Last Admin: 02/26/19 00:29 Dose: 650 mg Albuterol/Ipratropium (Duoneb 3 Mg/0.5 Mg (3 Ml) Ud) 3 ml INH RQ6 [facility] Last Admin: 02/26/19 08:00 Dose: Not Given Atorvastatin Calcium (Lipitor) 40 mg PO DAILY [facility] Last Admin: 02/26/19 09:39 Dose: 40 mg Dextrose (Glutose 15) 0 gm PO ONCE PRN; Protocol PRN Reason: Hypoglycemia Protocol Dextrose (Dextrose 50% Inj) 0 ml IV Q1H PRN; Protocol PRN Reason: Hypoglycemia Protocol Last Admin: 02/26/19 06:21 Dose: 50 ml Dextrose (Dextrose 50% Inj) 50 ml IVP Q1H PRN PRN Reason: Other Dimethicone (Proshield Plus Skin Protectant) 1 applic TOP Q8 PRN PRN Reason: derm Last Admin: 02/14/19 09:50 Dose: 1 applic Ergocalciferol (Drisdol 50,000 Intl Units Cap) 1 cap PO FR [facility] Last Admin: 02/22/19 16:04 Dose: 1 cap Glucagon (Glucagen Diagnostic Kit) 0 mg IM STAT PRN; Protocol PRN Reason: Hypoglycemia Protocol Hydrocortisone Sodium Succinate (Solu-Cortef) 100 mg IV Q8 [facility] Last Admin: 02/26/19 09:40 Dose: 100 mg Iron Sucrose 100 mg/ Sodium (Chloride) 105 mls @ 105 mls/hr IVPB DAILY [facility] Last Admin: 02/12/19 12:07 Dose: 105 mls/hr Metronidazole (Flagyl 500mg/100ml Ns) 100 mls @ 100 mls/hr IVPB Q8 [facility]; Protocol Last Admin: 02/26/19 09:34 Dose: 100 mls/hr Amiodarone HCl 450 mg/ Sodium (Chloride) 259 mls @ 17.27 mls/hr IVPB .Q15H [facility]; Protocol Last Admin: 02/26/19 06:08 Dose: Not Given Aztreonam 1 gm/ Sodium (Chloride) 100 mls @ 100 mls/hr IVPB Q8H [facility]; Protocol Last Admin: 02/26/19 09:35 Dose: 100 mls/hr Vasopressin 100 units/ Sodium (Chloride) 105 mls @ 2.52 mls/hr IV .Q24H [facility]; Protocol Last Admin: 02/25/19 15:12 Dose: 0.04 units/min, 2.52 mls/hr Dexmedetomidine HCl 400 mcg/ (Sodium Chloride) 100 mls @ 3.52 mls/hr IV .Q24H [facility]; Protocol Stop: 02/26/19 13:01 Last Titration: 02/25/19 16:11 Dose: 0 mcg/kg/hr, 0 mls/hr Norepinephrine Bitartrate 16 (mg/ Dextrose) 266 mls @ 14.96 mls/hr IV .[id number] [facility]; Protocol Stop: 02/26/19 09:47 Last Titration: 02/25/19 21:48 Dose: 10 mcg/min, 9.98 mls/hr Sodium Chloride (Sodium Chloride 0.9%) 1,000 mls @ 1,000 mls/hr IV .Q1H [facility] Stop: 02/27/19 03:00 Last Admin: 02/26/19 03:51 Dose: 1,000 mls/hr Sodium Bicarbonate 150 meq/ (Dextrose) 1,150 mls @ 100 mls/hr IV .[id number] [facility] Stop: 02/26/19 21:53 Last Admin: 02/26/19 09:39 Dose: 100 mls/hr Insulin Human Regular (Humulin R) 0 units SC ACHS [facility]; Protocol Last Admin: 02/26/19 09:37 Dose: 1 units Lidocaine (Lidoderm) 1 ea TD DAILY [facility] Last Admin: 02/25/19 10:32 Dose: 1 ea Memantine (Namenda) 10 mg PO BID [facility] Last Admin: 02/26/19 09:39 Dose: 10 mg Ondansetron HCl (Zofran Inj) 4 mg IVP Q4 PRN PRN Reason: Nausea/Vomiting Last Admin: 02/22/19 15:57 Dose: 4 mg Sucralfate (Carafate Oral Susp) 1 gm PO QID [facility] Last Admin: 02/26/19 09:35 Dose: 1 gm Tamsulosin HCl (Flomax) 0.4 mg PO DAILY [facility] Last Admin: 02/26/19 09:36 Dose: 0.4 mg Vancomycin HCl (Vancocin (Oral/Rectal Use)) 500 mg PO Q6 [facility]; Protocol Last Admin: 02/26/19 09:41 Dose: 500 mg - Labs Labs: 02/26/19 05:01 02/26/19 05:01 PT 22.6 Seconds (9.8-13.1) H 02/26/19 05:01 INR 2.0 02/26/19 05:01 APTT 102.8 Seconds (25.6-37.1) H 02/26/19 05:01 - Constitutional Appears: Chronically Ill, Other (Intubated) - Head Exam Head Exam: ATRAUMATIC, NORMAL INSPECTION - Eye Exam Eye Exam: EOMI, PERRL - ENT Exam ENT Exam: Mucous Membranes Moist - Neck Exam Neck Exam: Full ROM, Normal Inspection. absent: Meningismus - Respiratory Exam Additional comments: On mechanical ventilation - Cardiovascular Exam Cardiovascular Exam: REGULAR RHYTHM, +S1, +S2 - GI/Abdominal Exam GI & Abdominal Exam: Distended, Soft, Tenderness (diffuse). absent: Guarding, Rigid, Rebound - Extremities Exam Extremities Exam: absent: Calf Tenderness, Tenderness - Neurological Exam Neurological Exam: Alert, Awake Assessment and Plan (1) Colonic stricture Status: Acute (2) Dementia Status: Chronic (3) CKD (chronic kidney disease) Status: Chronic (4) Diabetes Status: Chronic (5) Gait instability Status: Chronic (6) New onset a-fib Status: Acute (7) Ulcerative colitis, chronic Status: Chronic - Assessment and Plan (Free Text) Assessment: 78 y/o male with PMH of Ulcerative colitis, HTN, Bladder Ca, Dementia, prediabetes and CVA in 2007 recently admitted to [facility] for evaluation and management of GI bleeding, colonic stricture and anemia. PLAN: >Septic shock --Likely GI source, C. Diff positive. --On Vancomycin and Aztreonam --On Levophed and Bicarbonate >Lactic acidosis --On IV Bicarbonate. --Lactic acid 9.5-today --Monitor serum lactic acid and ABG's. >Pancytopenia --Acute, Worsening --Hematology consult, Dr Amy Flowers. --Monitor CBC for possible transfusion or FFP. >Acute hypoxic respiratory failure --On mechanical ventilation. --F/U ABG's >Colonic stricture --POD#8. --S/P lap hand assist transverse colostomy . --Gen Surgery on yuko, Dr Del Cid. --GI on board, Dr Abdul. >CKD, Stage 1 --Creatinine --Nephrology on board, Dr. Boone. --Monitor BMP. 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 --Ulcerative Colitis under treatment. --Serum Ca+ 5.5 --Calculated corrected Ca++ 7.1-low. >Ulcerative Colitis --Chronic --GI on board, Dr Abdul >Afib --New onset this admission --Continuous cardiac monitoring. --Cardiology on board, Dr. Potts. --On IV Amiodarone drip >DM2 --Chronic, controlled as last HbA1c 6.1 on 01/16/19. --C/w home meds --ISS and hypoglycemia protocol in place >DVT/wound prophylaxis --SCD's (recent active GI bleed) --C/w [place] Case discussed with Dr Mathew. [place] PGY-2 <Gatito Mathew - Last Filed: 02/27/19 12:23> Objective - Vital Signs/Intake and Output Vital Signs (last 24 hours): Temp Pulse Resp BP Pulse Ox 100.0 F H 73 23 107/56 L 93 L 02/26/19 16:00 02/26/19 19:00 02/26/19 19:00 02/26/19 19:00 04/23/19 13:00 - Labs Labs: 02/26/19 18:30 02/26/19 18:30 PT 22.6 Seconds (9.8-13.1) H 02/26/19 05:01 INR 2.0 02/26/19 05:01 APTT 102.8 Seconds (25.6-37.1) H 02/26/19 05:01 Assessment and Plan - Assessment and Plan (Free Text) Assessment: Patient was personally seen and examined by me in rounds with residents. Available labs and diagnostic data reviewed. Case, Patient's condition and management plan discussed with residents in rounds. Agree with resident's progress note. Plan: As ordered.
[2019-02-26] MEDS: Lidocaine 5% Patch TD SCH (10:27)
--- NOTE | 2019-02-26 11:22 | CP.PCM.CON ---
Past Patient History - Tetanus Immunizations Tetanus Immunization: Unknown - Past Medical History & Family History Past Medical History?: Yes Past Family History: Reviewed and not pertinent - Past Social History Smoking Status: Never Smoked Chewing Tobacco Use: No Cigar Use: No Alcohol: None Drugs: Denies Home Situation {Lives}: Other - CARDIAC Hx Cardiac Disorders: Yes Hx Hypercholesterolemia: Yes Hx Hypertension: Yes - PULMONARY Hx Respiratory Disorders: No - NEUROLOGICAL HX Cerebrovascular Accident: Yes - HEENT Hx HEENT Problems: No - RENAL Hx Chronic Kidney Disease: No - ENDOCRINE/METABOLIC Hx Diabetes Mellitus Type 2: Yes - HEMATOLOGICAL/ONCOLOGICAL Hx Blood Disorders: Yes Hx Anemia: Yes Hx Human Immunodeficiency Virus (HIV): No - INTEGUMENTARY Hx Dermatological Problems: No - MUSCULOSKELETAL/RHEUMATOLOGICAL Hx Musculoskeletal Disorders: Yes Hx Falls: Yes (4 months) Hx Gout: Yes Hx Unsteady Gait: Yes (post CVA) - GASTROINTESTINAL Hx Gastrointestinal Disorders: Yes Hx Colitis: Yes (chronic) Hx Gastroesophageal Reflux: Yes HX Swallowing Problems: Yes (current complaint) - GENITOURINARY/GYNECOLOGICAL Hx Genitourinary Disorders: Yes Hx Bladder Cancer: Yes Hx Hematuria: Yes Other/Comment: HX: URINARY FREQUENCY - PSYCHIATRIC Hx Psychophysiologic Disorder: No Hx Substance Use: No - SURGICAL HISTORY Hx Surgeries: Yes Other/Comment: HX: BLADDER CANCER TURBT. HX: NEPHROURETERECTOMY 2014. HX: CYSTOSCOPY WITH BLADDER BIOPSY AND FULGURATION(08/20/18) - ANESTHESIA Hx Anesthesia: Yes Hx Anesthesia Reactions: No Hx Malignant Hyperthermia: No Meds Allergies/Adverse Reactions: Allergies Allergy/AdvReac Type Severity Reaction Status Date / Time Penicillins Allergy RASH Verified 02/25/19 07:33 - Medications Medications: Current Medications Acetaminophen (Tylenol 650 Mg Supp) 650 mg NC Q6 PRN PRN Reason: Fever >100.4 F Last Admin: 02/26/19 00:29 Dose: 650 mg Albuterol/Ipratropium (Duoneb 3 Mg/0.5 Mg (3 Ml) Ud) 3 ml INH RQ6 JOVANNY Last Admin: 02/26/19 08:00 Dose: Not Given Atorvastatin Calcium (Lipitor) 40 mg PO DAILY JOVANNY Last Admin: 02/26/19 09:39 Dose: 40 mg Dextrose (Glutose 15) 0 gm PO ONCE PRN; Protocol PRN Reason: Hypoglycemia Protocol Dextrose (Dextrose 50% Inj) 0 ml IV Q1H PRN; Protocol PRN Reason: Hypoglycemia Protocol Last Admin: 02/26/19 06:21 Dose: 50 ml Dextrose (Dextrose 50% Inj) 50 ml IVP Q1H PRN PRN Reason: Other Dimethicone (Proshield Plus Skin Protectant) 1 applic TOP Q8 PRN PRN Reason: derm Last Admin: 02/14/19 09:50 Dose: 1 applic Ergocalciferol (Drisdol 50,000 Intl Units Cap) 1 cap PO FR JOVANNY Last Admin: 02/22/19 16:04 Dose: 1 cap Glucagon (Glucagen Diagnostic Kit) 0 mg IM STAT PRN; Protocol PRN Reason: Hypoglycemia Protocol Hydrocortisone Sodium Succinate (Solu-Cortef) 100 mg IV Q8 JOVANNY Last Admin: 02/26/19 09:40 Dose: 100 mg Iron Sucrose 100 mg/ Sodium (Chloride) 105 mls @ 105 mls/hr IVPB DAILY JOVANNY Last Admin: 02/12/19 12:07 Dose: 105 mls/hr Metronidazole (Flagyl 500mg/100ml Ns) 100 mls @ 100 mls/hr IVPB Q8 JOVANNY; Protocol Last Admin: 02/26/19 09:34 Dose: 100 mls/hr Amiodarone HCl 450 mg/ Sodium (Chloride) 259 mls @ 17.27 mls/hr IVPB .Q15H JOVANNY; Protocol Last Admin: 02/26/19 06:08 Dose: Not Given Aztreonam 1 gm/ Sodium (Chloride) 100 mls @ 100 mls/hr IVPB Q8H JOVANNY; Protocol Last Admin: 02/26/19 09:35 Dose: 100 mls/hr Vasopressin 100 units/ Sodium (Chloride) 105 mls @ 2.52 mls/hr IV .Q24H JOVANNY; Protocol Last Admin: 02/25/19 15:12 Dose: 0.04 units/min, 2.52 mls/hr Dexmedetomidine HCl 400 mcg/ (Sodium Chloride) 100 mls @ 3.52 mls/hr IV .Q24H ONE; Protocol Stop: 02/26/19 13:01 Last Titration: 02/25/19 16:11 Dose: 0 mcg/kg/hr, 0 mls/hr Sodium Chloride (Sodium Chloride 0.9%) 1,000 mls @ 1,000 mls/hr IV .Q1H JOVANNY Stop: 02/27/19 03:00 Last Admin: 02/26/19 03:51 Dose: 1,000 mls/hr Sodium Bicarbonate 150 meq/ (Dextrose) 1,150 mls @ 100 mls/hr IV .[id number] JOVANNY Stop: 02/26/19 21:53 Last Admin: 02/26/19 09:39 Dose: 100 mls/hr Insulin Human Regular (Humulin R) 0 units SC ACHS JOVANNY; Protocol Last Admin: 02/26/19 09:37 Dose: 1 units Lidocaine (Lidoderm) 1 ea TD DAILY JOVANNY Last Admin: 02/26/19 10:27 Dose: 1 ea Memantine (Namenda) 10 mg PO BID JOVANNY Last Admin: 02/26/19 09:39 Dose: 10 mg Ondansetron HCl (Zofran Inj) 4 mg IVP Q4 PRN PRN Reason: Nausea/Vomiting Last Admin: 02/22/19 15:57 Dose: 4 mg Sucralfate (Carafate Oral Susp) 1 gm PO QID JOVANNY Last Admin: 02/26/19 09:35 Dose: 1 gm Tamsulosin HCl (Flomax) 0.4 mg PO DAILY [facility] Last Admin: 02/26/19 09:36 Dose: 0.4 mg Vancomycin HCl (Vancocin (Oral/Rectal Use)) 500 mg PO Q6 [facility]; Protocol Last Admin: 02/26/19 09:41 Dose: 500 mg Results - Vital Signs Recent Vital Signs: Last Vital Signs Temp 99.1 F 02/26/19 04:00 Pulse 130 H 02/26/19 07:00 Resp 24 02/26/19 07:00 BP 121/52 L 02/26/19 10:45 Pulse Ox 95 02/26/19 07:00 - Labs Result Diagrams: 02/26/19 05:01 02/26/19 05:01 Labs: Laboratory Results - last 24 hr 02/25/19 02/25/19 02/25/19 13:00 13:02 14:55 WBC RBC Hgb Hct MCV MCH MCHC RDW Plt Count MPV Neut % (Auto) Lymph % (Auto) Wise % (Auto) Eos % (Auto) Baso % (Auto) Neut # (Auto) Lymph # (Auto) Wise # (Auto) Eos # (Auto) Baso # (Auto) PT 26.8 H D INR 2.4 APTT 77.5 H Fibrinogen 412 H pCO2 33 L pO2 61 L HCO3 14.6 L ABG pH 7.22 L ABG Total CO2 14.5 L ABG O2 Saturation 91.8 L ABG O2 Content ABG Base Excess -13.1 L ABG Hemoglobin ABG Carboxyhemoglobin POC ABG HHb (Measured) ABG Methemoglobin ABG O2 Capacity Donavan Test Yes ABG Potassium 3.6 A-a O2 Difference 611.0 Hgb O2 Saturation Sodium 142.0 Chloride 111.0 H Glucose 110 Lactate 10.3 H* Vent Mode A/c Mechanical Rate 23 FiO2 100.0 Tidal Volume 450 PEEP 5 Crit Value Called To Dr cary aguero Crit Value Called By 15 Crit Value Read Back Y Blood Gas Notified Time 1348 Potassium Carbon Dioxide Anion Gap BUN Creatinine Est GFR ( Amer) Est GFR (Non-Af Amer) Random Glucose Lactic Acid 10.5 H* Calcium Phosphorus Magnesium Total Bilirubin AST ALT Alkaline Phosphatase Total Protein Albumin Globulin Albumin/Globulin Ratio Amylase Lipase Arterial Blood Potassium 3.6 Blood Type Antibody Screen BBK History Checked 02/25/19 02/25/19 02/25/19 16:58 17:55 17:55 WBC 1.1 L* RBC 3.00 L Hgb 8.0 L Hct 25.6 L MCV 85.3 MCH 26.5 L MCHC 31.1 L RDW 22.4 H Plt Count 36 L D MPV 10.8 Neut % (Auto) 70.9 Lymph % (Auto) 26.5 Wise % (Auto) 1.0 Eos % (Auto) 1.4 Baso % (Auto) 0.2 Neut # (Auto) 0.8 L Lymph # (Auto) 0.3 L Wise # (Auto) 0.0 Eos # (Auto) 0.0 Baso # (Auto) 0.0 PT INR APTT Fibrinogen pCO2 pO2 HCO3 ABG pH ABG Total CO2 ABG O2 Saturation ABG O2 Content ABG Base Excess ABG Hemoglobin ABG Carboxyhemoglobin POC ABG HHb (Measured) ABG Methemoglobin ABG O2 Capacity [place] Test ABG Potassium A-a O2 Difference Hgb O2 Saturation Sodium 144 Chloride 111 H Glucose Lactate Vent Mode Mechanical Rate FiO2 Tidal Volume PEEP Crit Value Called To Crit Value Called By Crit Value Read Back Blood Gas Notified Time Potassium 3.0 L Carbon Dioxide 15 L Anion Gap 21 H BUN 45 H Creatinine 2.5 H Est GFR ( Amer) 30 Est GFR (Non-Af Amer) 25 Random Glucose 150 H Lactic Acid 9.8 H* Calcium 5.3 L* Phosphorus 3.9 Magnesium 1.7 Total Bilirubin 0.5 AST 38 ALT 26 Alkaline Phosphatase 39 Total Protein 3.7 L Albumin 1.8 L Globulin 1.9 L Albumin/Globulin Ratio 0.9 L Amylase Lipase Arterial Blood Potassium Blood Type Antibody Screen BBK History Checked 02/25/19 02/25/19 02/25/19 18:42 21:11 21:38 WBC RBC Hgb Hct MCV MCH MCHC RDW Plt Count MPV Neut % (Auto) Lymph % (Auto) Wise % (Auto) Eos % (Auto) Baso % (Auto) Neut # (Auto) Lymph # (Auto) Wise # (Auto) Eos # (Auto) Baso # (Auto) PT INR APTT Fibrinogen pCO2 31 L pO2 59 L HCO3 15.1 L ABG pH 7.25 L ABG Total CO2 14.6 L ABG O2 Saturation 92.9 L ABG O2 Content ABG Base Excess -12.5 L ABG Hemoglobin ABG Carboxyhemoglobin POC ABG HHb (Measured) ABG Methemoglobin ABG O2 Capacity [place] Test Yes ABG Potassium 3.1 L A-a O2 Difference 473.0 Hgb O2 Saturation Sodium 141.0 Chloride 108.0 H Glucose 107 Lactate 9.1 H* Vent Mode A/c Mechanical Rate 23 FiO2 80.0 Tidal Volume 450 PEEP 5 Crit Value Called To Dr harish cook Crit Value Called By Rigo Crit Value Read Back Y Blood Gas Notified Time 2131 Potassium Carbon Dioxide Anion Gap BUN Creatinine Est GFR ( Amer) Est GFR (Non-Af Amer) Random Glucose Lactic Acid 9.6 H* Calcium Phosphorus Magnesium Total Bilirubin AST ALT Alkaline Phosphatase Total Protein Albumin Globulin Albumin/Globulin Ratio Amylase Lipase Arterial Blood Potassium 3.1 L Blood Type O POSITIVE Antibody Screen Negative BBK History Checked Patient has bt 02/25/19 02/25/19 02/26/19 21:38 21:38 02:00 WBC 1.3 L* RBC 2.90 L Hgb 7.7 L Hct 24.8 L MCV 85.6 MCH 26.5 L MCHC 30.9 L RDW 22.4 H Plt Count 26 L* D MPV 11.2 Neut % (Auto) 71.8 Lymph % (Auto) 25.7 Wise % (Auto) 1.1 Eos % (Auto) 1.3 Baso % (Auto) 0.1 Neut # (Auto) 0.9 L Lymph # (Auto) 0.3 L Wise # (Auto) 0.0 Eos # (Auto) 0.0 Baso # (Auto) 0.0 PT INR APTT Fibrinogen pCO2 pO2 HCO3 ABG pH ABG Total CO2 ABG O2 Saturation ABG O2 Content ABG Base Excess ABG Hemoglobin ABG Carboxyhemoglobin POC ABG HHb (Measured) ABG Methemoglobin ABG O2 Capacity [place] Test ABG Potassium A-a O2 Difference Hgb O2 Saturation Sodium 144 Chloride 110 H Glucose Lactate Vent Mode Mechanical Rate FiO2 Tidal Volume PEEP Crit Value Called To Crit Value Called By Crit Value Read Back Blood Gas Notified Time Potassium 3.1 L Carbon Dioxide 15 L Anion Gap 22 H BUN 47 H Creatinine 2.4 H Est GFR ( Amer) 32 Est GFR (Non-Af Amer) 26 Random Glucose 87 Lactic Acid 9.2 H* Calcium 5.9 L* Phosphorus 4.3 Magnesium 1.7 Total Bilirubin 0.6 AST 39 ALT 21 Alkaline Phosphatase 38 Total Protein 3.8 L Albumin 1.9 L Globulin 1.8 L Albumin/Globulin Ratio 1.1 Amylase 125 H Lipase 392 H Arterial Blood Potassium Blood Type Antibody Screen BBK History Checked 02/26/19 02/26/19 02/26/19 04:37 05:01 05:01 WBC 1.2 L* RBC 2.64 L Hgb 7.1 L Hct 22.7 L MCV 86.1 MCH 26.9 L MCHC 31.2 L RDW 22.7 H Plt Count 11 L* D MPV 10.3 Neut % (Auto) 63.9 Lymph % (Auto) 34.1 Wise % (Auto) 0.8 Eos % (Auto) 1.1 Baso % (Auto) 0.1 Neut # (Auto) 0.8 L Lymph # (Auto) 0.4 L Wise # (Auto) 0.0 Eos # (Auto) 0.0 Baso # (Auto) 0.0 PT INR APTT Fibrinogen pCO2 42 pO2 56 L HCO3 15.7 L ABG pH 7.18 L* ABG Total CO2 17.0 L ABG O2 Saturation 90.8 L ABG O2 Content ABG Base Excess -11.8 L ABG Hemoglobin ABG Carboxyhemoglobin POC ABG HHb (Measured) ABG Methemoglobin ABG O2 Capacity [place] Test Yes ABG Potassium 3.7 A-a O2 Difference 605.0 Hgb O2 Saturation Sodium 141.0 144 Chloride 107.0 109 H Glucose 51 L Lactate 8.7 H* Vent Mode A/c Mechanical Rate 23 FiO2 100.0 Tidal Volume 450 PEEP 5 Crit Value Called To Dr harish cook Crit Value Called By Rigo Crit Value Read Back Y Blood Gas Notified Time 553 Potassium 3.7 Carbon Dioxide 16 L Anion Gap 23 H BUN 46 H Creatinine 2.4 H Est GFR ( Amer) 32 Est GFR (Non-Af Amer) 26 Random Glucose 53 L Lactic Acid Calcium 5.5 L* Phosphorus 4.6 H Magnesium 1.7 Total Bilirubin 0.7 AST 37 ALT 22 Alkaline Phosphatase 30 L D Total Protein 3.8 L Albumin 2.0 L Globulin 1.7 L Albumin/Globulin Ratio 1.2 Amylase Lipase Arterial Blood Potassium 3.7 Blood Type Antibody Screen BBK History Checked 02/26/19 02/26/19 02/26/19 05:01 05:01 08:17 WBC RBC Hgb Hct MCV MCH MCHC RDW Plt Count MPV Neut % (Auto) Lymph % (Auto) Wise % (Auto) Eos % (Auto) Baso % (Auto) Neut # (Auto) Lymph # (Auto) Wise # (Auto) Eos # (Auto) Baso # (Auto) PT 22.6 H INR 2.0 APTT 102.8 H Fibrinogen pCO2 46 H pO2 48 L HCO3 17.1 L ABG pH 7.19 L* ABG Total CO2 19.0 L ABG O2 Saturation 85.5 L ABG O2 Content 9.2 L ABG Base Excess -9.9 L ABG Hemoglobin 7.6 L ABG Carboxyhemoglobin 0.4 L POC ABG HHb (Measured) 14.4 H ABG Methemoglobin 0.0 ABG O2 Capacity 10.8 L Don[place] Test Yes ABG Potassium A-a O2 Difference 608.0 Hgb O2 Saturation 85.2 L Sodium Chloride Glucose Lactate Vent Mode Prvc/ac Mechanical Rate 23 FiO2 100.0 Tidal Volume 450 PEEP 10 Crit Value Called To joey Abbasi md Crit Value Called By Zulma galeano Crit Value Read Back Y Blood Gas Notified Time 830 Potassium Carbon Dioxide Anion Gap BUN Creatinine Est GFR ( Amer) Est GFR (Non-Af Amer) Random Glucose Lactic Acid 9.5 H* Calcium Phosphorus Magnesium Total Bilirubin AST ALT Alkaline Phosphatase Total Protein Albumin Globulin Albumin/Globulin Ratio Amylase Lipase Arterial Blood Potassium Blood Type Antibody Screen BBK History Checked
--- NOTE | 2019-02-26 11:24 | CP.PCM.CON ---
History of Present Illness - History of Present Illness History of Present Illness: This is a 78 yrs old male who was admitted to [facility] after having abdominal pain ad some bloody diarrhea and dehydration. This resolved with hydration and pt was in sub acute rehab. He then had a cva and was placed on dual antico agulants. He again had bloody diarrhea and ct scan which showed a stricture in the left colon. His hgb started to drop so he had a diverting colostomy . He then had a c diff colitis, , atrial fibrillation and went into a shock on the , He was intubated , and is on pressors. His wbc went from 5.4 to 1.2, hgb from 110 to 7.1 gms and platelets from 118 to 11K. His pt, ptt were elevated but fibrinogen was normal. There is no bleeding from any site. Past h/o bladder cancer in 2007. Past Patient History - Tetanus Immunizations Tetanus Immunization: Unknown - Past Medical History & Family History Past Medical History?: Yes Past Family History: Reviewed and not pertinent - Past Social History Smoking Status: Never Smoked Chewing Tobacco Use: No Cigar Use: No Alcohol: None Drugs: Denies Home Situation {Lives}: Other - CARDIAC Hx Cardiac Disorders: Yes Hx Hypercholesterolemia: Yes Hx Hypertension: Yes - PULMONARY Hx Respiratory Disorders: No - NEUROLOGICAL HX Cerebrovascular Accident: Yes - HEENT Hx HEENT Problems: No - RENAL Hx Chronic Kidney Disease: No - ENDOCRINE/METABOLIC Hx Diabetes Mellitus Type 2: Yes - HEMATOLOGICAL/ONCOLOGICAL Hx Blood Disorders: Yes Hx Anemia: Yes Hx Human Immunodeficiency Virus (HIV): No - INTEGUMENTARY Hx Dermatological Problems: No - MUSCULOSKELETAL/RHEUMATOLOGICAL Hx Musculoskeletal Disorders: Yes Hx Falls: Yes (4 months) Hx Gout: Yes Hx Unsteady Gait: Yes (post CVA) - GASTROINTESTINAL Hx Gastrointestinal Disorders: Yes Hx Colitis: Yes (chronic) Hx Gastroesophageal Reflux: Yes HX Swallowing Problems: Yes (current complaint) - GENITOURINARY/GYNECOLOGICAL Hx Genitourinary Disorders: Yes Hx Bladder Cancer: Yes Hx Hematuria: Yes Other/Comment: HX: URINARY FREQUENCY - PSYCHIATRIC Hx Psychophysiologic Disorder: No Hx Substance Use: No - SURGICAL HISTORY Hx Surgeries: Yes Other/Comment: HX: BLADDER CANCER TURBT. HX: NEPHROURETERECTOMY 2014. HX: CYSTOSCOPY WITH BLADDER BIOPSY AND FULGURATION(08/20/18) - ANESTHESIA Hx Anesthesia: Yes Hx Anesthesia Reactions: No Hx Malignant Hyperthermia: No Meds Allergies/Adverse Reactions: Allergies Allergy/AdvReac Type Severity Reaction Status Date / Time Penicillins Allergy RASH Verified 02/25/19 07:33 - Medications Medications: Current Medications Acetaminophen (Tylenol 650 Mg Supp) 650 mg [place] Q6 PRN PRN Reason: Fever >100.4 F Last Admin: 02/26/19 00:29 Dose: 650 mg Albuterol/Ipratropium (Duoneb 3 Mg/0.5 Mg (3 Ml) Ud) 3 ml INH RQ6 [facility] Last Admin: 02/26/19 08:00 Dose: Not Given Atorvastatin Calcium (Lipitor) 40 mg PO DAILY [facility] Last Admin: 02/26/19 09:39 Dose: 40 mg Dextrose (Glutose 15) 0 gm PO ONCE PRN; Protocol PRN Reason: Hypoglycemia Protocol Dextrose (Dextrose 50% Inj) 0 ml IV Q1H PRN; Protocol PRN Reason: Hypoglycemia Protocol Last Admin: 02/26/19 06:21 Dose: 50 ml Dextrose (Dextrose 50% Inj) 50 ml IVP Q1H PRN PRN Reason: Other Dimethicone (Proshield Plus Skin Protectant) 1 applic TOP Q8 PRN PRN Reason: derm Last Admin: 02/14/19 09:50 Dose: 1 applic Ergocalciferol (Drisdol 50,000 Intl Units Cap) 1 cap PO FR [facility] Last Admin: 02/22/19 16:04 Dose: 1 cap Glucagon (Glucagen Diagnostic Kit) 0 mg IM STAT PRN; Protocol PRN Reason: Hypoglycemia Protocol Hydrocortisone Sodium Succinate (Solu-Cortef) 100 mg IV Q8 [facility] Last Admin: 02/26/19 09:40 Dose: 100 mg Iron Sucrose 100 mg/ Sodium (Chloride) 105 mls @ 105 mls/hr IVPB DAILY [facility] Last Admin: 02/12/19 12:07 Dose: 105 mls/hr Metronidazole (Flagyl 500mg/100ml Ns) 100 mls @ 100 mls/hr IVPB Q8 [facility]; Protocol Last Admin: 02/26/19 09:34 Dose: 100 mls/hr Amiodarone HCl 450 mg/ Sodium (Chloride) 259 mls @ 17.27 mls/hr IVPB .Q15H [facility]; Protocol Last Admin: 02/26/19 06:08 Dose: Not Given Aztreonam 1 gm/ Sodium (Chloride) 100 mls @ 100 mls/hr IVPB Q8H [facility]; Protocol Last Admin: 02/26/19 09:35 Dose: 100 mls/hr Vasopressin 100 units/ Sodium (Chloride) 105 mls @ 2.52 mls/hr IV .Q24H [facility]; Protocol Last Admin: 02/25/19 15:12 Dose: 0.04 units/min, 2.52 mls/hr Dexmedetomidine HCl 400 mcg/ (Sodium Chloride) 100 mls @ 3.52 mls/hr IV .Q24H [facility]; Protocol Stop: 02/26/19 13:01 Last Titration: 02/25/19 16:11 Dose: 0 mcg/kg/hr, 0 mls/hr Sodium Chloride (Sodium Chloride 0.9%) 1,000 mls @ 1,000 mls/hr IV .Q1H [facility] Stop: 02/27/19 03:00 Last Admin: 02/26/19 03:51 Dose: 1,000 mls/hr Sodium Bicarbonate 150 meq/ (Dextrose) 1,150 mls @ 100 mls/hr IV .[id number] [facility] Stop: 02/26/19 21:53 Last Admin: 02/26/19 09:39 Dose: 100 mls/hr Insulin Human Regular (Humulin R) 0 units SC ACHS [facility]; Protocol Last Admin: 02/26/19 09:37 Dose: 1 units Lidocaine (Lidoderm) 1 ea TD DAILY [facility] Last Admin: 02/26/19 10:27 Dose: 1 ea Memantine (Namenda) 10 mg PO BID [facility] Last Admin: 02/26/19 09:39 Dose: 10 mg Ondansetron HCl (Zofran Inj) 4 mg IVP Q4 PRN PRN Reason: Nausea/Vomiting Last Admin: 02/22/19 15:57 Dose: 4 mg Sucralfate (Carafate Oral Susp) 1 gm PO QID [facility] Last Admin: 02/26/19 09:35 Dose: 1 gm Tamsulosin HCl (Flomax) 0.4 mg PO DAILY [facility] Last Admin: 02/26/19 09:36 Dose: 0.4 mg Vancomycin HCl (Vancocin (Oral/Rectal Use)) 500 mg PO Q6 [facility]; Protocol Last Admin: 02/26/19 09:41 Dose: 500 mg Physical Exam - Additional Findings Additional findings: Physical exam; Intubated ,sedated, neck; supple, no adenopathy Chest' Clear, no rales or rhonchi Heart; sinus tachycardia,rate 109 Abd; Colostomy shows no bleeding. Results - Vital Signs Recent Vital Signs: Last Vital Signs Temp 99.1 F 02/26/19 04:00 Pulse 130 H 02/26/19 07:00 Resp 24 02/26/19 07:00 BP 121/52 L 02/26/19 10:45 Pulse Ox 95 02/26/19 07:00 - Labs Result Diagrams: 02/26/19 05:01 02/26/19 05:01 Labs: Laboratory Results - last 24 hr 02/25/19 02/25/19 02/25/19 13:00 13:02 14:55 WBC RBC Hgb Hct MCV MCH MCHC RDW Plt Count MPV Neut % (Auto) Lymph % (Auto) [place] % (Auto) Eos % (Auto) Baso % (Auto) Neut # (Auto) Lymph # (Auto) [place] # (Auto) Eos # (Auto) Baso # (Auto) PT 26.8 H D INR 2.4 APTT 77.5 H Fibrinogen 412 H pCO2 33 L pO2 61 L HCO3 14.6 L ABG pH 7.22 L ABG Total CO2 14.5 L ABG O2 Saturation 91.8 L ABG O2 Content ABG Base Excess -13.1 L ABG Hemoglobin ABG Carboxyhemoglobin POC ABG HHb (Measured) ABG Methemoglobin ABG O2 Capacity [place] Test Yes ABG Potassium 3.6 A-a O2 Difference 611.0 Hgb O2 Saturation Sodium 142.0 Chloride 111.0 H Glucose 110 Lactate 10.3 H* Vent Mode A/c Mechanical Rate 23 FiO2 100.0 Tidal Volume 450 PEEP 5 Crit Value Called To Dr cary aguero Crit Value Called By 15 Crit Value Read Back Y Blood Gas Notified Time 1348 Potassium Carbon Dioxide Anion Gap BUN Creatinine Est GFR ( Amer) Est GFR (Non-Af Amer) Random Glucose Lactic Acid 10.5 H* Calcium Phosphorus Magnesium Total Bilirubin AST ALT Alkaline Phosphatase Total Protein Albumin Globulin Albumin/Globulin Ratio Amylase Lipase Arterial Blood Potassium 3.6 Blood Type Antibody Screen BBK History Checked 02/25/19 02/25/19 02/25/19 16:58 17:55 17:55 WBC 1.1 L* RBC 3.00 L Hgb 8.0 L Hct 25.6 L MCV 85.3 MCH 26.5 L MCHC 31.1 L RDW 22.4 H Plt Count 36 L D MPV 10.8 Neut % (Auto) 70.9 Lymph % (Auto) 26.5 [place] % (Auto) 1.0 Eos % (Auto) 1.4 Baso % (Auto) 0.2 Neut # (Auto) 0.8 L Lymph # (Auto) 0.3 L [place] # (Auto) 0.0 Eos # (Auto) 0.0 Baso # (Auto) 0.0 PT INR APTT Fibrinogen pCO2 pO2 HCO3 ABG pH ABG Total CO2 ABG O2 Saturation ABG O2 Content ABG Base Excess ABG Hemoglobin ABG Carboxyhemoglobin POC ABG HHb (Measured) ABG Methemoglobin ABG O2 Capacity [place] Test ABG Potassium A-a O2 Difference Hgb O2 Saturation Sodium 144 Chloride 111 H Glucose Lactate Vent Mode Mechanical Rate FiO2 Tidal Volume PEEP Crit Value Called To Crit Value Called By Crit Value Read Back Blood Gas Notified Time Potassium 3.0 L Carbon Dioxide 15 L Anion Gap 21 H BUN 45 H Creatinine 2.5 H Est GFR ( Amer) 30 Est GFR (Non-Af Amer) 25 Random Glucose 150 H Lactic Acid 9.8 H* Calcium 5.3 L* Phosphorus 3.9 Magnesium 1.7 Total Bilirubin 0.5 AST 38 ALT 26 Alkaline Phosphatase 39 Total Protein 3.7 L Albumin 1.8 L Globulin 1.9 L Albumin/Globulin Ratio 0.9 L Amylase Lipase Arterial Blood Potassium Blood Type Antibody Screen BBK History Checked 02/25/19 02/25/19 02/25/19 18:42 21:11 21:38 WBC RBC Hgb Hct MCV MCH MCHC RDW Plt Count MPV Neut % (Auto) Lymph % (Auto) [place] % (Auto) Eos % (Auto) Baso % (Auto) Neut # (Auto) Lymph # (Auto) [place] # (Auto) Eos # (Auto) Baso # (Auto) PT INR APTT Fibrinogen pCO2 31 L pO2 59 L HCO3 15.1 L ABG pH 7.25 L ABG Total CO2 14.6 L ABG O2 Saturation 92.9 L ABG O2 Content ABG Base Excess -12.5 L ABG Hemoglobin ABG Carboxyhemoglobin POC ABG HHb (Measured) ABG Methemoglobin ABG O2 Capacity [place] Test Yes ABG Potassium 3.1 L A-a O2 Difference 473.0 Hgb O2 Saturation Sodium 141.0 Chloride 108.0 H Glucose 107 Lactate 9.1 H* Vent Mode A/c Mechanical Rate 23 FiO2 80.0 Tidal Volume 450 PEEP 5 Crit Value Called To Dr harish cook Crit Value Called By Rigo Crit Value Read Back Y Blood Gas Notified Time 2131 Potassium Carbon Dioxide Anion Gap BUN Creatinine Est GFR ( Amer) Est GFR (Non-Af Amer) Random Glucose Lactic Acid 9.6 H* Calcium Phosphorus Magnesium Total Bilirubin AST ALT Alkaline Phosphatase Total Protein Albumin Globulin Albumin/Globulin Ratio Amylase Lipase Arterial Blood Potassium 3.1 L Blood Type O POSITIVE Antibody Screen Negative BBK History Checked Patient has bt 02/25/19 02/25/19 02/26/19 21:38 21:38 02:00 WBC 1.3 L* RBC 2.90 L Hgb 7.7 L Hct 24.8 L MCV 85.6 MCH 26.5 L MCHC 30.9 L RDW 22.4 H Plt Count 26 L* D MPV 11.2 Neut % (Auto) 71.8 Lymph % (Auto) 25.7 [place] % (Auto) 1.1 Eos % (Auto) 1.3 Baso % (Auto) 0.1 Neut # (Auto) 0.9 L Lymph # (Auto) 0.3 L [place] # (Auto) 0.0 Eos # (Auto) 0.0 Baso # (Auto) 0.0 PT INR APTT Fibrinogen pCO2 pO2 HCO3 ABG pH ABG Total CO2 ABG O2 Saturation ABG O2 Content ABG Base Excess ABG Hemoglobin ABG Carboxyhemoglobin POC ABG HHb (Measured) ABG Methemoglobin ABG O2 Capacity [place] Test ABG Potassium A-a O2 Difference Hgb O2 Saturation Sodium 144 Chloride 110 H Glucose Lactate Vent Mode Mechanical Rate FiO2 Tidal Volume PEEP Crit Value Called To Crit Value Called By Crit Value Read Back Blood Gas Notified Time Potassium 3.1 L Carbon Dioxide 15 L Anion Gap 22 H BUN 47 H Creatinine 2.4 H Est GFR ( Amer) 32 Est GFR (Non-Af Amer) 26 Random Glucose 87 Lactic Acid 9.2 H* Calcium 5.9 L* Phosphorus 4.3 Magnesium 1.7 Total Bilirubin 0.6 AST 39 ALT 21 Alkaline Phosphatase 38 Total Protein 3.8 L Albumin 1.9 L Globulin 1.8 L Albumin/Globulin Ratio 1.1 Amylase 125 H Lipase 392 H Arterial Blood Potassium Blood Type Antibody Screen BBK History Checked 02/26/19 02/26/19 02/26/19 04:37 05:01 05:01 WBC 1.2 L* RBC 2.64 L Hgb 7.1 L Hct 22.7 L MCV 86.1 MCH 26.9 L MCHC 31.2 L RDW 22.7 H Plt Count 11 L* D MPV 10.3 Neut % (Auto) 63.9 Lymph % (Auto) 34.1 [place] % (Auto) 0.8 Eos % (Auto) 1.1 Baso % (Auto) 0.1 Neut # (Auto) 0.8 L Lymph # (Auto) 0.4 L [place] # (Auto) 0.0 Eos # (Auto) 0.0 Baso # (Auto) 0.0 PT INR APTT Fibrinogen pCO2 42 pO2 56 L HCO3 15.7 L ABG pH 7.18 L* ABG Total CO2 17.0 L ABG O2 Saturation 90.8 L ABG O2 Content ABG Base Excess -11.8 L ABG Hemoglobin ABG Carboxyhemoglobin POC ABG HHb (Measured) ABG Methemoglobin ABG O2 Capacity [place] Test Yes ABG Potassium 3.7 A-a O2 Difference 605.0 Hgb O2 Saturation Sodium 141.0 144 Chloride 107.0 109 H Glucose 51 L Lactate 8.7 H* Vent Mode A/c Mechanical Rate 23 FiO2 100.0 Tidal Volume 450 PEEP 5 Crit Value Called To Dr harish cook Crit Value Called By Rigo Crit Value Read Back Y Blood Gas Notified Time 553 Potassium 3.7 Carbon Dioxide 16 L Anion Gap 23 H BUN 46 H Creatinine 2.4 H Est GFR ( Amer) 32 Est GFR (Non-Af Amer) 26 Random Glucose 53 L Lactic Acid Calcium 5.5 L* Phosphorus 4.6 H Magnesium 1.7 Total Bilirubin 0.7 AST 37 ALT 22 Alkaline Phosphatase 30 L D Total Protein 3.8 L Albumin 2.0 L Globulin 1.7 L Albumin/Globulin Ratio 1.2 Amylase Lipase Arterial Blood Potassium 3.7 Blood Type Antibody Screen BBK History Checked 02/26/19 02/26/19 02/26/19 05:01 05:01 08:17 WBC RBC Hgb Hct MCV MCH MCHC RDW Plt Count MPV Neut % (Auto) Lymph % (Auto) [place] % (Auto) Eos % (Auto) Baso % (Auto) Neut # (Auto) Lymph # (Auto) [place] # (Auto) Eos # (Auto) Baso # (Auto) PT 22.6 H INR 2.0 APTT 102.8 H Fibrinogen pCO2 46 H pO2 48 L HCO3 17.1 L ABG pH 7.19 L* ABG Total CO2 19.0 L ABG O2 Saturation 85.5 L ABG O2 Content 9.2 L ABG Base Excess -9.9 L ABG Hemoglobin 7.6 L ABG Carboxyhemoglobin 0.4 L POC ABG HHb (Measured) 14.4 H ABG Methemoglobin 0.0 ABG O2 Capacity 10.8 L [place] Test Yes ABG Potassium A-a O2 Difference 608.0 Hgb O2 Saturation 85.2 L Sodium Chloride Glucose Lactate Vent Mode Prvc/ac Mechanical Rate 23 FiO2 100.0 Tidal Volume 450 PEEP 10 Crit Value Called To joey Abbasi md Crit Value Called By [facility] Crit Value Read Back Y Blood Gas Notified Time 830 Potassium Carbon Dioxide Anion Gap BUN Creatinine Est GFR ( Amer) Est GFR (Non-Af Amer) Random Glucose Lactic Acid 9.5 H* Calcium Phosphorus Magnesium Total Bilirubin AST ALT Alkaline Phosphatase Total Protein Albumin Globulin Albumin/Globulin Ratio Amylase Lipase Arterial Blood Potassium Blood Type Antibody Screen BBK History Checked Assessment & Plan - Assessment and Plan (Free Text) Assessment: Impression; Pancytopenia secondary to sepsis. Cdiff colitis,colostomy, Plan: Plan :At this time there is no bleeding from any site. If any bleeding is noticed or if platelets fall below 11, would transfuse 2 units of FFP and 2 units of platelets. will monitor CBC - Date & Time Date: 02/26/19 Time: 11:52
--- NOTE | 2019-02-26 11:53 | RAD ---
Date of service: 02/26/2019 PROCEDURE: CHEST RADIOGRAPH, 1 VIEW HISTORY: eval congestion COMPARISON: 02/25/2019 FINDINGS: LUNGS: Bibasilar opacities. Air bronchograms seen at both lung bases.. No significant change from prior. PLEURA: Probable small bilateral pleural effusion. No pneumothorax. CARDIOVASCULAR: Grossly normal heart size. Probable congestive change. No thoracic aortic calcification noted. ET tube, NG tube, right PICC catheter and left IJ central venous catheter are all grossly unchanged. OSSEOUS STRUCTURES: No significant abnormalities. VISUALIZED UPPER ABDOMEN: Normal. OTHER FINDINGS: None. IMPRESSION: No significant change from 02/25/2019. By size basilar infiltrates and small pleural effusions.
[2019-02-26] MEDS ORDERED: Propofol 10 mg/ml 1,000 MG/100 ML VIAL IV SCH (12:00)
--- NOTE | 2019-02-26 13:17 | CP.PCM.PN ---
Subjective - Date & Time of Evaluation Date of Evaluation: 02/26/19 Time of Evaluation: 12:30 - Subjective Subjective: Remains intubated on ventilator support Appears dyspeic Objective - Vital Signs/Intake and Output Vital Signs (last 24 hours): Temp Pulse Resp BP Pulse Ox 99.1 F 130 H 24 121/52 L 95 02/26/19 04:00 02/26/19 07:00 02/26/19 07:00 02/26/19 10:45 02/26/19 07:00 Intake and Output: 02/26/19 02/26/19 06:59 18:59 Intake Total 5618 Output Total 1962 Balance 3656 - Medications Medications: Current Medications Acetaminophen (Tylenol 650 Mg Supp) 650 mg [place] Q6 PRN PRN Reason: Fever >100.4 F Last Admin: 02/26/19 00:29 Dose: 650 mg Albuterol/Ipratropium (Duoneb 3 Mg/0.5 Mg (3 Ml) Ud) 3 ml INH RQ6 [facility] Last Admin: 02/26/19 08:00 Dose: Not Given Atorvastatin Calcium (Lipitor) 40 mg PO DAILY [facility] Last Admin: 02/26/19 09:39 Dose: 40 mg Dextrose (Glutose 15) 0 gm PO ONCE PRN; Protocol PRN Reason: Hypoglycemia Protocol Dextrose (Dextrose 50% Inj) 0 ml IV Q1H PRN; Protocol PRN Reason: Hypoglycemia Protocol Last Admin: 02/26/19 06:21 Dose: 50 ml Dextrose (Dextrose 50% Inj) 50 ml IVP Q1H PRN PRN Reason: Other Dimethicone (Proshield Plus Skin Protectant) 1 applic TOP Q8 PRN PRN Reason: derm Last Admin: 02/14/19 09:50 Dose: 1 applic Ergocalciferol (Drisdol 50,000 Intl Units Cap) 1 cap PO FR [facility] Last Admin: 02/22/19 16:04 Dose: 1 cap Glucagon (Glucagen Diagnostic Kit) 0 mg IM STAT PRN; Protocol PRN Reason: Hypoglycemia Protocol Hydrocortisone Sodium Succinate (Solu-Cortef) 100 mg IV Q8 [facility] Last Admin: 02/26/19 09:40 Dose: 100 mg Iron Sucrose 100 mg/ Sodium (Chloride) 105 mls @ 105 mls/hr IVPB DAILY [facility] Last Admin: 02/12/19 12:07 Dose: 105 mls/hr Metronidazole (Flagyl 500mg/100ml Ns) 100 mls @ 100 mls/hr IVPB Q8 [facility]; Protocol Last Admin: 02/26/19 09:34 Dose: 100 mls/hr Amiodarone HCl 450 mg/ Sodium (Chloride) 259 mls @ 17.27 mls/hr IVPB .Q15H [facility]; Protocol Last Admin: 02/26/19 06:08 Dose: Not Given Aztreonam 1 gm/ Sodium (Chloride) 100 mls @ 100 mls/hr IVPB Q8H [facility]; Protocol Last Admin: 02/26/19 09:35 Dose: 100 mls/hr Vasopressin 100 units/ Sodium (Chloride) 105 mls @ 2.52 mls/hr IV .Q24H [facility]; Protocol Last Admin: 02/25/19 15:12 Dose: 0.04 units/min, 2.52 mls/hr Sodium Chloride (Sodium Chloride 0.9%) 1,000 mls @ 1,000 mls/hr IV .Q1H [facility] Stop: 02/27/19 03:00 Last Admin: 02/26/19 03:51 Dose: 1,000 mls/hr Sodium Bicarbonate 150 meq/ (Dextrose) 1,150 mls @ 100 mls/hr IV .[id number] [facility] Stop: 02/26/19 21:53 Last Admin: 02/26/19 09:39 Dose: 100 mls/hr Propofol (Diprivan) 1,000 mg in 100 mls @ 2.613 mls/hr IV .Q24H [facility]; Protocol Stop: 02/27/19 12:01 Last Admin: 02/26/19 13:06 Dose: 5 mcg/kg/min, 2.613 mls/hr Insulin Human Regular (Humulin R) 0 units SC ACHS [facility]; Protocol Last Admin: 02/26/19 11:26 Dose: Not Given Lidocaine (Lidoderm) 1 ea TD DAILY [facility] Last Admin: 02/26/19 10:27 Dose: 1 ea Memantine (Namenda) 10 mg PO BID [facility] Last Admin: 02/26/19 09:39 Dose: 10 mg Ondansetron HCl (Zofran Inj) 4 mg IVP Q4 PRN PRN Reason: Nausea/Vomiting Last Admin: 02/22/19 15:57 Dose: 4 mg Sucralfate (Carafate Oral Susp) 1 gm PO QID [facility] Last Admin: 02/26/19 13:09 Dose: 1 gm Tamsulosin HCl (Flomax) 0.4 mg PO DAILY [facility] Last Admin: 02/26/19 09:36 Dose: 0.4 mg Vancomycin HCl (Vancocin (Oral/Rectal Use)) 500 mg PO Q6 [facility]; Protocol Last Admin: 02/26/19 09:41 Dose: 500 mg - Labs Labs: 02/26/19 05:01 02/26/19 05:01 PT 22.6 Seconds (9.8-13.1) H 02/26/19 05:01 INR 2.0 02/26/19 05:01 APTT 102.8 Seconds (25.6-37.1) H 02/26/19 05:01 - Constitutional Appears: In Acute Distress - Head Exam Head Exam: ATRAUMATIC, NORMOCEPHALIC - Eye Exam Additional comments: Conjunctiva pale - Neck Exam Additional comments: Supple - Respiratory Exam Respiratory Exam: Respiratory Distress Additional comments: Clear anteriorly - Cardiovascular Exam Additional comments: A.fib 104/min - GI/Abdominal Exam GI & Abdominal Exam: Firm - Extremities Exam Additional comments: Worsening edema of both UEs + edema of both LEs noted. Assessment and Plan - Assessment and Plan (Free Text) Assessment: Acute on chronic renal failure Urine out put is decreasing & pt has developed generalized edema On pressors .BP improved. Respiratory failure. Pneumonia. Seotic shock. with coagulopathy & pancytopenia, severe metabolic acidosis S/P lap colostomy Hx/o UC/ GI bleed, C.diff + Plan: Pt had received Lasix today Urine out put appears to be improving Monitor renal parameters closely Received PRBCs & platelet transfusion On broad spectrum Abx
[2019-02-26 13:50] VITALS: O2SAT 93
[2019-02-26 16:24] VITALS: RESP 23; TEMP 100
--- NOTE | 2019-02-26 16:41 | CP.PCM.PN ---
Subjective - Date & Time of Evaluation Date of Evaluation: 02/26/19 Time of Evaluation: 09:00 - Subjective Subjective: Patient continues with sepsis, hypoxemia, pancytopenia, and abdominal distention. O2 sat in low 90s but requiring !))% FIO2. Objective - Vital Signs/Intake and Output Vital Signs (last 24 hours): Temp Pulse Resp BP Pulse Ox 100.0 F H 95 H 23 103/50 L 93 L 02/26/19 16:00 02/26/19 16:00 02/26/19 16:00 02/26/19 16:00 02/26/19 13:00 Intake and Output: 02/26/19 02/26/19 06:59 18:59 Intake Total 5618 Output Total 1962 Balance 3656 - Medications Medications: Current Medications Acetaminophen (Tylenol 650 Mg Supp) 650 mg [place] Q6 PRN PRN Reason: Fever >100.4 F Last Admin: 02/26/19 00:29 Dose: 650 mg Albuterol/Ipratropium (Duoneb 3 Mg/0.5 Mg (3 Ml) Ud) 3 ml INH RQ6 [facility] Last Admin: 02/26/19 14:30 Dose: 3 ml Atorvastatin Calcium (Lipitor) 40 mg PO DAILY [facility] Last Admin: 02/26/19 09:39 Dose: 40 mg Dextrose (Glutose 15) 0 gm PO ONCE PRN; Protocol PRN Reason: Hypoglycemia Protocol Dextrose (Dextrose 50% Inj) 0 ml IV Q1H PRN; Protocol PRN Reason: Hypoglycemia Protocol Last Admin: 02/26/19 06:21 Dose: 50 ml Dextrose (Dextrose 50% Inj) 50 ml IVP Q1H PRN PRN Reason: Other Dimethicone (Proshield Plus Skin Protectant) 1 applic TOP Q8 PRN PRN Reason: derm Last Admin: 02/14/19 09:50 Dose: 1 applic Ergocalciferol (Drisdol 50,000 Intl Units Cap) 1 cap PO FR [facility] Last Admin: 02/22/19 16:04 Dose: 1 cap Glucagon (Glucagen Diagnostic Kit) 0 mg IM STAT PRN; Protocol PRN Reason: Hypoglycemia Protocol Hydrocortisone Sodium Succinate (Solu-Cortef) 100 mg IV Q8 [facility] Last Admin: 02/26/19 09:40 Dose: 100 mg Iron Sucrose 100 mg/ Sodium (Chloride) 105 mls @ 105 mls/hr IVPB DAILY [facility] Last Admin: 02/12/19 12:07 Dose: 105 mls/hr Metronidazole (Flagyl 500mg/100ml Ns) 100 mls @ 100 mls/hr IVPB Q8 [facility]; Protocol Last Admin: 02/26/19 09:34 Dose: 100 mls/hr Amiodarone HCl 450 mg/ Sodium (Chloride) 259 mls @ 17.27 mls/hr IVPB .Q15H [facility]; Protocol Last Admin: 02/26/19 06:08 Dose: Not Given Aztreonam 1 gm/ Sodium (Chloride) 100 mls @ 100 mls/hr IVPB Q8H [facility]; Protocol Last Admin: 02/26/19 09:35 Dose: 100 mls/hr Vasopressin 100 units/ Sodium (Chloride) 105 mls @ 2.52 mls/hr IV .Q24H [facility]; Protocol Last Admin: 02/25/19 15:12 Dose: 0.04 units/min, 2.52 mls/hr Sodium Chloride (Sodium Chloride 0.9%) 1,000 mls @ 1,000 mls/hr IV .Q1H [facility] Stop: 02/27/19 03:00 Last Admin: 02/26/19 03:51 Dose: 1,000 mls/hr Sodium Bicarbonate 150 meq/ (Dextrose) 1,150 mls @ 100 mls/hr IV .[id number] [facility] Stop: 02/26/19 21:53 Last Admin: 02/26/19 09:39 Dose: 100 mls/hr Propofol (Diprivan) 1,000 mg in 100 mls @ 2.613 mls/hr IV .Q24H [facility]; Protocol Stop: 02/27/19 12:01 Last Admin: 02/26/19 13:06 Dose: 5 mcg/kg/min, 2.613 mls/hr Insulin Human Regular (Humulin R) 0 units SC ACHS [facility]; Protocol Last Admin: 02/26/19 11:26 Dose: Not Given Lidocaine (Lidoderm) 1 ea TD DAILY [facility] Last Admin: 02/26/19 10:27 Dose: 1 ea Memantine (Namenda) 10 mg PO BID [facility] Last Admin: 02/26/19 09:39 Dose: 10 mg Ondansetron HCl (Zofran Inj) 4 mg IVP Q4 PRN PRN Reason: Nausea/Vomiting Last Admin: 02/22/19 15:57 Dose: 4 mg Sucralfate (Carafate Oral Susp) 1 gm PO QID [facility] Last Admin: 02/26/19 13:09 Dose: 1 gm Tamsulosin HCl (Flomax) 0.4 mg PO DAILY [facility] Last Admin: 02/26/19 09:36 Dose: 0.4 mg Vancomycin HCl (Vancocin (Oral/Rectal Use)) 500 mg PO Q6 [facility]; Protocol Last Admin: 02/26/19 09:41 Dose: 500 mg - Labs Labs: 02/26/19 05:01 02/26/19 05:01 PT 22.6 Seconds (9.8-13.1) H 02/26/19 05:01 INR 2.0 02/26/19 05:01 APTT 102.8 Seconds (25.6-37.1) H 02/26/19 05:01 - Head Exam Head Exam: ATRAUMATIC - Eye Exam Eye Exam: Normal appearance - ENT Exam ENT Exam: Normal Exam - Neck Exam Neck Exam: Normal Inspection - Respiratory Exam Respiratory Exam: Clear to Ausculation Bilateral - Cardiovascular Exam Cardiovascular Exam: REGULAR RHYTHM - GI/Abdominal Exam GI & Abdominal Exam: Distended, Firm, Hypoactive Bowel Sounds Assessment and Plan (1) Colonic stricture Status: Acute (2) Septicemia Assessment & Plan: Patient with sepsis, grm - rods on gram stain from blood culture , C. diff toxin present in stool. Is one week post op following loop colostomy . Has bilateral pulmonary infiltrates. He is also pancytopenic. On broad spectrum antibiotics and oral/rectal Vanco. CT abdomen and pelvis ordered yesterday, not yet done. Continue current management. Status: Acute
--- NOTE | 2019-02-26 17:16 | CP.CCUPN ---
CCU Subjective - Physician Review Subjective (Free Text): 02/26/19 17:05 The patient was Seen/interviewed and examined by me at the bedside during ICU round, Medical records reviewed and Management issues were discussed and formulated with the house staff. Events reviewed Patient is 78 years old critically ill male, orally intubated and sedated Acute hypoxemic respiratory failure, remain borderline saturating despite being 100% FiO2 requirement and PEEP of 10 Hypotensive from septic shock with multiorgan system failure on high dose levophed and vasopressin Patient is not candidate for vent weaning at this time due to hemodynamic instability Intermittent fever with T-max of 101.1F Tachycardic on amio drip Last 24 hours I's and O's [id number] AM labs noted for severe metabolic acidosis, remains on bicarb drip, rate decreased to 100 mL/h pancytopenia (hematology consulted), no sign of active bleeding at this time Signs of fluid overload on exam and chest x-ray Resuming tube feeding today Discussed with discussed with the family at the bedside critical nature of the patient, diagnosis, treatment plan and alternative Family verbalized understanding, the wish to continue on aggressive measurement patient to remain full code CCU Objective - Vital Signs / Intake & Output Vital Signs (Last 4 hours): Vital Signs Temp Pulse Resp BP 02/26/19 16:00 100.0 F H 95 H 23 103/50 L Intake and Output (Last 8hrs): Intake & Output 02/26/19 02/26/19 02/26/19 06:59 14:59 22:59 Intake Total 2896 Output Total 1245 Balance 1651 Weight 192 lb Intake: IV 2296 Intake, Piggyback 350 Albumin 250 Output: Gastric Amount 250 Left Lower 250 Urine 95 Urethral (Malik) 95 Stool 900 Other: # Bowel Movements 1 - Physical Exam Physical Exam Limitations: Positive for: Clinical Condition Head: Positive for: Atraumatic, Normocephalic Pupils: Positive for: PERRL Extroacular Muscles: Positive for: EOMI Conjunctiva: Positive for: Normal, Icteric. Negative for: Injected Mouth: Positive for: Moist Mucous Membranes Nose (Internal): Positive for: Normal Inspection, No Active Bleeding Neck: Positive for: Normal Range of Motion, Trachea Midline Respiratory/Chest: Positive for: Rales, Rhonchi, Tachypneic. Negative for: Clear to Auscultation, Wheezes Cardiovascular: Positive for: Regular Rate and Rhythm, Normal S1, S2, Peripheal Pulses Present Abdomen: Positive for: Distention, Normal Bowel Sounds. Negative for: Tenderness - Medications Active Medications: Active Medications Generic Name Dose Route Start Last Admin Trade Name Freq PRN Reason Stop Dose Admin Acetaminophen 650 mg 02/24/19 22:51 02/26/19 00:29 Tylenol 650 Mg Supp NH 650 mg Q6 PRN Administration Fever >100.4 F Albuterol/Ipratropium 3 ml 02/25/19 20:00 02/26/19 14:30 Duoneb 3 Mg/0.5 Mg (3 Ml) Ud INH 3 ml RQ6 JOAVNNY Administration Atorvastatin Calcium 40 mg 02/06/19 09:00 02/26/19 09:39 Lipitor PO 40 mg DAILY JOVANNY Administration Dextrose 0 gm 02/05/19 16:11 Glutose 15 PO ONCE PRN Hypoglycemia Protocol Protocol Dextrose 0 ml 02/24/19 17:27 02/26/19 06:21 Dextrose 50% Inj IV 50 ml Q1H PRN Administration Hypoglycemia Protocol Protocol Dextrose 50 ml 02/25/19 17:04 Dextrose 50% Inj IVP Q1H PRN Other Dimethicone 1 applic 02/05/19 16:14 02/14/19 09:50 Proshield Plus Skin Protectant TOP 1 applic Q8 PRN Administration derm Ergocalciferol 1 cap 02/08/19 16:03 02/22/19 16:04 Drisdol 50,000 Intl Units Cap PO 1 cap FR JOVANNY Administration Glucagon 0 mg 02/05/19 16:11 Glucagen Diagnostic Kit IM STAT PRN Hypoglycemia Protocol Protocol Hydrocortisone Sodium Succinate 100 mg 02/25/19 09:00 02/26/19 16:55 Solu-Cortef IV 100 mg Q8 JOVANNY Administration Iron Sucrose 100 mg/ Sodium 105 mls @ 105 mls/hr 02/06/19 09:00 02/12/19 12:07 Chloride IVPB 105 mls/hr DAILY JOVANNY Administration Metronidazole 100 mls @ 100 mls/hr 02/24/19 11:45 02/26/19 16:53 Flagyl 500mg/100ml Ns IVPB 100 mls/hr Q8 JOVANNY Administration Protocol Amiodarone HCl 450 mg/ Sodium 259 mls @ 17.27 mls/hr 02/24/19 21:15 02/26/19 06:08 Chloride IVPB Not Given .Q15H JOVANNY Protocol 0.5 MG/MIN Aztreonam 1 gm/ Sodium 100 mls @ 100 mls/hr 02/25/19 08:30 02/26/19 16:52 Chloride IVPB 100 mls/hr Q8H JOVANNY Administration Protocol Vasopressin 100 units/ Sodium 105 mls @ 2.52 mls/hr 02/25/19 12:00 02/25/19 15:12 Chloride IV 0.04 units/min .Q24H JOVANNY 2.52 mls/hr Administration Protocol 0.04 UNITS/MIN Sodium Chloride 1,000 mls @ 1,000 mls/hr 02/26/19 03:00 02/26/19 03:51 Sodium Chloride 0.9% IV 02/27/19 03:00 1,000 mls/hr .Q1H JOVANNY Administration Sodium Bicarbonate 150 meq/ 1,150 mls @ 100 mls/hr 02/26/19 09:11 02/26/19 09:39 Dextrose IV 02/26/19 21:53 100 mls/hr .[id number] JOVANNY Administration Propofol 1,000 mg in 100 mls @ 2.613 mls/hr 02/26/19 12:00 02/26/19 13:06 Diprivan IV 02/27/19 12:01 5 mcg/kg/min .Q24H JOVANNY 2.613 mls/hr Administration Protocol 5 MCG/KG/MIN Insulin Human Regular 0 units 02/05/19 16:30 02/26/19 16:54 Humulin R SC Not Given ACHS JOVANNY Protocol Lidocaine 1 ea 02/19/19 15:00 02/26/19 10:27 Lidoderm TD 1 ea DAILY JOVANNY Administration Memantine 10 mg 02/05/19 17:00 02/26/19 16:55 Namenda PO 10 mg BID JOVANNY Administration Ondansetron HCl 4 mg 02/22/19 07:38 02/22/19 15:57 Zofran Inj IVP 4 mg Q4 PRN Administration Nausea/Vomiting Sucralfate 1 gm 02/05/19 17:00 02/26/19 16:53 Carafate Oral Susp PO 1 gm QID JOVANNY Administration Tamsulosin HCl 0.4 mg 02/06/19 09:00 02/26/19 09:36 Flomax PO 0.4 mg DAILY JOVANNY Administration Vancomycin HCl 500 mg 02/25/19 10:00 02/26/19 16:56 Vancocin (Oral/Rectal Use) PO 500 mg Q6 JOVANNY Administration Protocol - Patient Studies Lab Studies: Microbiology Studies 02/24/19 12:15 Blood Culture - Preliminary Blood Gram Negative Waqar Gram Stain - Final 02/24/19 12:40 Blood Culture - Preliminary Blood NO GROWTH AFTER 48 HOURS 02/24/19 11:15 MRSA Culture (Admit) - Final Naris MRSA NOT DETECTED Lab Studies 02/26/19 02/26/19 02/26/19 Range/Units 08:17 05:01 05:01 WBC (4.8-10.8) K/uL RBC (4.40-5.90) Mil/uL Hgb (12.0-18.0) g/dL Hct (35.0-51.0) % MCV (80.0-94.0) fl MCH (27.0-31.0) pg MCHC (33.0-37.0) g/dL RDW (11.5-14.5) % Plt Count (130-400) K/uL MPV (7.2-11.7) fl Neut % (Auto) (50.0-75.0) % Lymph % (Auto) (20.0-40.0) % Ada % (Auto) (0.0-10.0) % Eos % (Auto) (0.0-4.0) % Baso % (Auto) (0.0-2.0) % Neut # (Auto) (1.8-7.0) K/uL Lymph # (Auto) (1.0-4.3) K/uL Ada # (Auto) (0.0-0.8) K/uL Eos # (Auto) (0.0-0.7) K/uL Baso # (Auto) (0.0-0.2) K/uL PT 22.6 H (9.8-13.1) Seconds INR 2.0 APTT 102.8 H (25.6-37.1) Seconds pCO2 46 H (35-45) mm/Hg pO2 48 L (80-100) mm/Hg HCO3 17.1 L (21-28) mmol/L ABG pH 7.19 L* (7.35-7.45) ABG Total CO2 19.0 L (22-28) mmol/L ABG O2 Saturation 85.5 L (95-98) % ABG O2 Content 9.2 L (15-23) ML/dL ABG Base Excess -9.9 L (-2.0-3.0) mmol/L ABG Hemoglobin 7.6 L (11.7-17.4) g/dL ABG Carboxyhemoglobin 0.4 L (0.5-1.5) % POC ABG HHb (Measured) 14.4 H (0.0-5.0) % ABG Methemoglobin 0.0 (0.0-3.0) % ABG O2 Capacity 10.8 L (16-24) mL/dL [place] Test Yes ABG Potassium (3.6-5.2) mmol/L A-a O2 Difference 608.0 mm/Hg Hgb O2 Saturation 85.2 L (95.0-98.0) % Glucose (75-110) mg/dL Lactate (0.7-2.1) mmol/L Vent Mode Prvc/ac Mechanical Rate 23 FiO2 100.0 % Tidal Volume 450 PEEP 10 Crit Value Called To joey Abbasi md Crit Value Called By [facility] Crit Value Read Back Y Blood Gas Notified Time 830 Sodium (132-148) mmol/l Potassium (3.6-5.0) MMOL/L Chloride (98-107) mmol/L Carbon Dioxide (22-30) mmol/L Anion Gap (10-20) BUN (9-20) mg/dl Creatinine (0.8-1.5) mg/dl Est GFR ( Amer) Est GFR (Non-Af Amer) Random Glucose (75-110) mg/dL Lactic Acid 9.5 H* (0.7-2.1) mmol/L Calcium (8.4-10.2) mg/dL Phosphorus (2.5-4.5) mg/dl Magnesium (1.6-2.3) MG/DL Total Bilirubin (0.2-1.3) mg/dl AST (17-59) U/L ALT (21-72) U/L Alkaline Phosphatase (38-126) U/L Total Protein (6.3-8.2) G/DL Albumin (3.5-5.0) g/dL Globulin (2.2-3.9) gm/dL Albumin/Globulin Ratio (1.0-2.1) Amylase (30-110) U/L Lipase (23-300) U/L Arterial Blood Potassium (3.6-5.2) mmol/L Blood Type Antibody Screen BBK History Checked 02/26/19 02/26/19 02/26/19 Range/Units 05:01 05:01 04:37 WBC 1.2 L* (4.8-10.8) K/uL RBC 2.64 L (4.40-5.90) Mil/uL Hgb 7.1 L (12.0-18.0) g/dL Hct 22.7 L (35.0-51.0) % MCV 86.1 (80.0-94.0) fl MCH 26.9 L (27.0-31.0) pg MCHC 31.2 L (33.0-37.0) g/dL RDW 22.7 H (11.5-14.5) % Plt Count 11 L* D (130-400) K/uL MPV 10.3 (7.2-11.7) fl Neut % (Auto) 63.9 (50.0-75.0) % Lymph % (Auto) 34.1 (20.0-40.0) % Ada % (Auto) 0.8 (0.0-10.0) % Eos % (Auto) 1.1 (0.0-4.0) % Baso % (Auto) 0.1 (0.0-2.0) % Neut # (Auto) 0.8 L (1.8-7.0) K/uL Lymph # (Auto) 0.4 L (1.0-4.3) K/uL Ada # (Auto) 0.0 (0.0-0.8) K/uL Eos # (Auto) 0.0 (0.0-0.7) K/uL Baso # (Auto) 0.0 (0.0-0.2) K/uL PT (9.8-13.1) Seconds INR APTT (25.6-37.1) Seconds pCO2 42 (35-45) mm/Hg pO2 56 L (80-100) mm/Hg HCO3 15.7 L (21-28) mmol/L ABG pH 7.18 L* (7.35-7.45) ABG Total CO2 17.0 L (22-28) mmol/L ABG O2 Saturation 90.8 L (95-98) % ABG O2 Content (15-23) ML/dL ABG Base Excess -11.8 L (-2.0-3.0) mmol/L ABG Hemoglobin (11.7-17.4) g/dL ABG Carboxyhemoglobin (0.5-1.5) % POC ABG HHb (Measured) (0.0-5.0) % ABG Methemoglobin (0.0-3.0) % ABG O2 Capacity (16-24) mL/dL [place] Test Yes ABG Potassium 3.7 (3.6-5.2) mmol/L A-a O2 Difference 605.0 mm/Hg Hgb O2 Saturation (95.0-98.0) % Glucose 51 L (75-110) mg/dL Lactate 8.7 H* (0.7-2.1) mmol/L Vent Mode A/c Mechanical Rate 23 FiO2 100.0 % Tidal Volume 450 PEEP 5 Crit Value Called To Dr harish cook Crit Value Called By Rigo Crit Value Read Back Y Blood Gas Notified Time 553 Sodium 144 141.0 (132-148) mmol/l Potassium 3.7 (3.6-5.0) MMOL/L Chloride 109 H 107.0 (98-107) mmol/L Carbon Dioxide 16 L (22-30) mmol/L Anion Gap 23 H (10-20) BUN 46 H (9-20) mg/dl Creatinine 2.4 H (0.8-1.5) mg/dl Est GFR ( Amer) 32 Est GFR (Non-Af Amer) 26 Random Glucose 53 L (75-110) mg/dL Lactic Acid (0.7-2.1) mmol/L Calcium 5.5 L* (8.4-10.2) mg/dL Phosphorus 4.6 H (2.5-4.5) mg/dl Magnesium 1.7 (1.6-2.3) MG/DL Total Bilirubin 0.7 (0.2-1.3) mg/dl AST 37 (17-59) U/L ALT 22 (21-72) U/L Alkaline Phosphatase 30 L D (38-126) U/L Total Protein 3.8 L (6.3-8.2) G/DL Albumin 2.0 L (3.5-5.0) g/dL Globulin 1.7 L (2.2-3.9) gm/dL Albumin/Globulin Ratio 1.2 (1.0-2.1) Amylase (30-110) U/L Lipase (23-300) U/L Arterial Blood Potassium 3.7 (3.6-5.2) mmol/L Blood Type Antibody Screen BBK History Checked 02/26/19 02/25/19 02/25/19 Range/Units 02:00 21:38 21:38 WBC 1.3 L* (4.8-10.8) K/uL RBC 2.90 L (4.40-5.90) Mil/uL Hgb 7.7 L (12.0-18.0) g/dL Hct 24.8 L (35.0-51.0) % MCV 85.6 (80.0-94.0) fl MCH 26.5 L (27.0-31.0) pg MCHC 30.9 L (33.0-37.0) g/dL RDW 22.4 H (11.5-14.5) % Plt Count 26 L* D (130-400) K/uL MPV 11.2 (7.2-11.7) fl Neut % (Auto) 71.8 (50.0-75.0) % Lymph % (Auto) 25.7 (20.0-40.0) % Ada % (Auto) 1.1 (0.0-10.0) % Eos % (Auto) 1.3 (0.0-4.0) % Baso % (Auto) 0.1 (0.0-2.0) % Neut # (Auto) 0.9 L (1.8-7.0) K/uL Lymph # (Auto) 0.3 L (1.0-4.3) K/uL Ada # (Auto) 0.0 (0.0-0.8) K/uL Eos # (Auto) 0.0 (0.0-0.7) K/uL Baso # (Auto) 0.0 (0.0-0.2) K/uL PT (9.8-13.1) Seconds INR APTT (25.6-37.1) Seconds pCO2 (35-45) mm/Hg pO2 (80-100) mm/Hg HCO3 (21-28) mmol/L ABG pH (7.35-7.45) ABG Total CO2 (22-28) mmol/L ABG O2 Saturation (95-98) % ABG O2 Content (15-23) ML/dL ABG Base Excess (-2.0-3.0) mmol/L ABG Hemoglobin (11.7-17.4) g/dL ABG Carboxyhemoglobin (0.5-1.5) % POC ABG HHb (Measured) (0.0-5.0) % ABG Methemoglobin (0.0-3.0) % ABG O2 Capacity (16-24) mL/dL [place] Test ABG Potassium (3.6-5.2) mmol/L A-a O2 Difference mm/Hg Hgb O2 Saturation (95.0-98.0) % Glucose (75-110) mg/dL Lactate (0.7-2.1) mmol/L Vent Mode Mechanical Rate FiO2 % Tidal Volume PEEP Crit Value Called To Crit Value Called By Crit Value Read Back Blood Gas Notified Time Sodium 144 (132-148) mmol/l Potassium 3.1 L (3.6-5.0) MMOL/L Chloride 110 H (98-107) mmol/L Carbon Dioxide 15 L (22-30) mmol/L Anion Gap 22 H (10-20) BUN 47 H (9-20) mg/dl Creatinine 2.4 H (0.8-1.5) mg/dl Est GFR ( Amer) 32 Est GFR (Non-Af Amer) 26 Random Glucose 87 (75-110) mg/dL Lactic Acid 9.2 H* (0.7-2.1) mmol/L Calcium 5.9 L* (8.4-10.2) mg/dL Phosphorus 4.3 (2.5-4.5) mg/dl Magnesium 1.7 (1.6-2.3) MG/DL Total Bilirubin 0.6 (0.2-1.3) mg/dl AST 39 (17-59) U/L ALT 21 (21-72) U/L Alkaline Phosphatase 38 (38-126) U/L Total Protein 3.8 L (6.3-8.2) G/DL Albumin 1.9 L (3.5-5.0) g/dL Globulin 1.8 L (2.2-3.9) gm/dL Albumin/Globulin Ratio 1.1 (1.0-2.1) Amylase 125 H (30-110) U/L Lipase 392 H (23-300) U/L Arterial Blood Potassium (3.6-5.2) mmol/L Blood Type Antibody Screen BBK History Checked 02/25/19 02/25/19 02/25/19 Range/Units 21:38 21:11 18:42 WBC (4.8-10.8) K/uL RBC (4.40-5.90) Mil/uL Hgb (12.0-18.0) g/dL Hct (35.0-51.0) % MCV (80.0-94.0) fl MCH (27.0-31.0) pg MCHC (33.0-37.0) g/dL RDW (11.5-14.5) % Plt Count (130-400) K/uL MPV (7.2-11.7) fl Neut % (Auto) (50.0-75.0) % Lymph % (Auto) (20.0-40.0) % Ada % (Auto) (0.0-10.0) % Eos % (Auto) (0.0-4.0) % Baso % (Auto) (0.0-2.0) % Neut # (Auto) (1.8-7.0) K/uL Lymph # (Auto) (1.0-4.3) K/uL Ada # (Auto) (0.0-0.8) K/uL Eos # (Auto) (0.0-0.7) K/uL Baso # (Auto) (0.0-0.2) K/uL PT (9.8-13.1) Seconds INR APTT (25.6-37.1) Seconds pCO2 31 L (35-45) mm/Hg pO2 59 L (80-100) mm/Hg HCO3 15.1 L (21-28) mmol/L ABG pH 7.25 L (7.35-7.45) ABG Total CO2 14.6 L (22-28) mmol/L ABG O2 Saturation 92.9 L (95-98) % ABG O2 Content (15-23) ML/dL ABG Base Excess -12.5 L (-2.0-3.0) mmol/L ABG Hemoglobin (11.7-17.4) g/dL ABG Carboxyhemoglobin (0.5-1.5) % POC ABG HHb (Measured) (0.0-5.0) % ABG Methemoglobin (0.0-3.0) % ABG O2 Capacity (16-24) mL/dL [place] Test Yes ABG Potassium 3.1 L (3.6-5.2) mmol/L A-a O2 Difference 473.0 mm/Hg Hgb O2 Saturation (95.0-98.0) % Glucose 107 (75-110) mg/dL Lactate 9.1 H* (0.7-2.1) mmol/L Vent Mode A/c Mechanical Rate 23 FiO2 80.0 % Tidal Volume 450 PEEP 5 Crit Value Called To Dr harish cook Crit Value Called By Crit Value Read Back Y Blood Gas Notified Time 2131 Sodium 141.0 (132-148) mmol/l Potassium (3.6-5.0) MMOL/L Chloride 108.0 H (98-107) mmol/L Carbon Dioxide (22-30) mmol/L Anion Gap (10-20) BUN (9-20) mg/dl Creatinine (0.8-1.5) mg/dl Est GFR ( Amer) Est GFR (Non-Af Amer) Random Glucose (75-110) mg/dL Lactic Acid 9.6 H* (0.7-2.1) mmol/L Calcium (8.4-10.2) mg/dL Phosphorus (2.5-4.5) mg/dl Magnesium (1.6-2.3) MG/DL Total Bilirubin (0.2-1.3) mg/dl AST (17-59) U/L ALT (21-72) U/L Alkaline Phosphatase (38-126) U/L Total Protein (6.3-8.2) G/DL Albumin (3.5-5.0) g/dL Globulin (2.2-3.9) gm/dL Albumin/Globulin Ratio (1.0-2.1) Amylase (30-110) U/L Lipase (23-300) U/L Arterial Blood Potassium 3.1 L (3.6-5.2) mmol/L Blood Type O POSITIVE Antibody Screen Negative BBK History Checked Patient has bt 02/25/19 02/25/19 02/25/19 Range/Units 17:55 17:55 16:58 WBC 1.1 L* (4.8-10.8) K/uL RBC 3.00 L (4.40-5.90) Mil/uL Hgb 8.0 L (12.0-18.0) g/dL Hct 25.6 L (35.0-51.0) % MCV 85.3 (80.0-94.0) fl MCH 26.5 L (27.0-31.0) pg MCHC 31.1 L (33.0-37.0) g/dL RDW 22.4 H (11.5-14.5) % Plt Count 36 L D (130-400) K/uL MPV 10.8 (7.2-11.7) fl Neut % (Auto) 70.9 (50.0-75.0) % Lymph % (Auto) 26.5 (20.0-40.0) % Ada % (Auto) 1.0 (0.0-10.0) % Eos % (Auto) 1.4 (0.0-4.0) % Baso % (Auto) 0.2 (0.0-2.0) % Neut # (Auto) 0.8 L (1.8-7.0) K/uL Lymph # (Auto) 0.3 L (1.0-4.3) K/uL Ada # (Auto) 0.0 (0.0-0.8) K/uL Eos # (Auto) 0.0 (0.0-0.7) K/uL Baso # (Auto) 0.0 (0.0-0.2) K/uL PT (9.8-13.1) Seconds INR APTT (25.6-37.1) Seconds pCO2 (35-45) mm/Hg pO2 (80-100) mm/Hg HCO3 (21-28) mmol/L ABG pH (7.35-7.45) ABG Total CO2 (22-28) mmol/L ABG O2 Saturation (95-98) % ABG O2 Content (15-23) ML/dL ABG Base Excess (-2.0-3.0) mmol/L ABG Hemoglobin (11.7-17.4) g/dL ABG Carboxyhemoglobin (0.5-1.5) % POC ABG HHb (Measured) (0.0-5.0) % ABG Methemoglobin (0.0-3.0) % ABG O2 Capacity (16-24) mL/dL [place] Test ABG Potassium (3.6-5.2) mmol/L A-a O2 Difference mm/Hg Hgb O2 Saturation (95.0-98.0) % Glucose (75-110) mg/dL Lactate (0.7-2.1) mmol/L Vent Mode Mechanical Rate FiO2 % Tidal Volume PEEP Crit Value Called To Crit Value Called By Crit Value Read Back Blood Gas Notified Time Sodium 144 (132-148) mmol/l Potassium 3.0 L (3.6-5.0) MMOL/L Chloride 111 H (98-107) mmol/L Carbon Dioxide 15 L (22-30) mmol/L Anion Gap 21 H (10-20) BUN 45 H (9-20) mg/dl Creatinine 2.5 H (0.8-1.5) mg/dl Est GFR ( Amer) 30 Est GFR (Non-Af Amer) 25 Random Glucose 150 H (75-110) mg/dL Lactic Acid 9.8 H* (0.7-2.1) mmol/L Calcium 5.3 L* (8.4-10.2) mg/dL Phosphorus 3.9 (2.5-4.5) mg/dl Magnesium 1.7 (1.6-2.3) MG/DL Total Bilirubin 0.5 (0.2-1.3) mg/dl AST 38 (17-59) U/L ALT 26 (21-72) U/L Alkaline Phosphatase 39 (38-126) U/L Total Protein 3.7 L (6.3-8.2) G/DL Albumin 1.8 L (3.5-5.0) g/dL Globulin 1.9 L (2.2-3.9) gm/dL Albumin/Globulin Ratio 0.9 L (1.0-2.1) Amylase (30-110) U/L Lipase (23-300) U/L Arterial Blood Potassium (3.6-5.2) mmol/L Blood Type Antibody Screen BBK History Checked Laboratory Results - last 24 hr 02/25/19 02/25/19 02/25/19 16:58 17:55 17:55 WBC 1.1 L* RBC 3.00 L Hgb 8.0 L Hct 25.6 L MCV 85.3 MCH 26.5 L MCHC 31.1 L RDW 22.4 H Plt Count 36 L D MPV 10.8 Neut % (Auto) 70.9 Lymph % (Auto) 26.5 Ada % (Auto) 1.0 Eos % (Auto) 1.4 Baso % (Auto) 0.2 Neut # (Auto) 0.8 L Lymph # (Auto) 0.3 L Ada # (Auto) 0.0 Eos # (Auto) 0.0 Baso # (Auto) 0.0 PT INR APTT pCO2 pO2 HCO3 ABG pH ABG Total CO2 ABG O2 Saturation ABG O2 Content ABG Base Excess ABG Hemoglobin ABG Carboxyhemoglobin POC ABG HHb (Measured) ABG Methemoglobin ABG O2 Capacity [place] Test ABG Potassium A-a O2 Difference Hgb O2 Saturation Glucose Lactate Vent Mode Mechanical Rate FiO2 Tidal Volume PEEP Crit Value Called To Crit Value Called By Crit Value Read Back Blood Gas Notified Time Sodium 144 Potassium 3.0 L Chloride 111 H Carbon Dioxide 15 L Anion Gap 21 H BUN 45 H Creatinine 2.5 H Est GFR ( Amer) 30 Est GFR (Non-Af Amer) 25 Random Glucose 150 H Lactic Acid 9.8 H* Calcium 5.3 L* Phosphorus 3.9 Magnesium 1.7 Total Bilirubin 0.5 AST 38 ALT 26 Alkaline Phosphatase 39 Total Protein 3.7 L Albumin 1.8 L Globulin 1.9 L Albumin/Globulin Ratio 0.9 L Amylase Lipase Arterial Blood Potassium Blood Type Antibody Screen BBK History Checked 02/25/19 02/25/19 02/25/19 18:42 21:11 21:38 WBC RBC Hgb Hct MCV MCH MCHC RDW Plt Count MPV Neut % (Auto) Lymph % (Auto) Ada % (Auto) Eos % (Auto) Baso % (Auto) Neut # (Auto) Lymph # (Auto) Ada # (Auto) Eos # (Auto) Baso # (Auto) PT INR APTT pCO2 31 L pO2 59 L HCO3 15.1 L ABG pH 7.25 L ABG Total CO2 14.6 L ABG O2 Saturation 92.9 L ABG O2 Content ABG Base Excess -12.5 L ABG Hemoglobin ABG Carboxyhemoglobin POC ABG HHb (Measured) ABG Methemoglobin ABG O2 Capacity [place] Test Yes ABG Potassium 3.1 L A-a O2 Difference 473.0 Hgb O2 Saturation Glucose 107 Lactate 9.1 H* Vent Mode A/c Mechanical Rate 23 FiO2 80.0 Tidal Volume 450 PEEP 5 Crit Value Called To Dr harish cook Crit Value Called By Rigo Crit Value Read Back Y Blood Gas Notified Time 2131 Sodium 141.0 Potassium Chloride 108.0 H Carbon Dioxide Anion Gap BUN Creatinine Est GFR ( Amer) Est GFR (Non-Af Amer) Random Glucose Lactic Acid 9.6 H* Calcium Phosphorus Magnesium Total Bilirubin AST ALT Alkaline Phosphatase Total Protein Albumin Globulin Albumin/Globulin Ratio Amylase Lipase Arterial Blood Potassium 3.1 L Blood Type O POSITIVE Antibody Screen Negative BBK History Checked Patient has bt 02/25/19 02/25/19 02/26/19 21:38 21:38 02:00 WBC 1.3 L* RBC 2.90 L Hgb 7.7 L Hct 24.8 L MCV 85.6 MCH 26.5 L MCHC 30.9 L RDW 22.4 H Plt Count 26 L* D MPV 11.2 Neut % (Auto) 71.8 Lymph % (Auto) 25.7 Ada % (Auto) 1.1 Eos % (Auto) 1.3 Baso % (Auto) 0.1 Neut # (Auto) 0.9 L Lymph # (Auto) 0.3 L Ada # (Auto) 0.0 Eos # (Auto) 0.0 Baso # (Auto) 0.0 PT INR APTT pCO2 pO2 HCO3 ABG pH ABG Total CO2 ABG O2 Saturation ABG O2 Content ABG Base Excess ABG Hemoglobin ABG Carboxyhemoglobin POC ABG HHb (Measured) ABG Methemoglobin ABG O2 Capacity [place] Test ABG Potassium A-a O2 Difference Hgb O2 Saturation Glucose Lactate Vent Mode Mechanical Rate FiO2 Tidal Volume PEEP Crit Value Called To Crit Value Called By Crit Value Read Back Blood Gas Notified Time Sodium 144 Potassium 3.1 L Chloride 110 H Carbon Dioxide 15 L Anion Gap 22 H BUN 47 H Creatinine 2.4 H Est GFR ( Amer) 32 Est GFR (Non-Af Amer) 26 Random Glucose 87 Lactic Acid 9.2 H* Calcium 5.9 L* Phosphorus 4.3 Magnesium 1.7 Total Bilirubin 0.6 AST 39 ALT 21 Alkaline Phosphatase 38 Total Protein 3.8 L Albumin 1.9 L Globulin 1.8 L Albumin/Globulin Ratio 1.1 Amylase 125 H Lipase 392 H Arterial Blood Potassium Blood Type Antibody Screen BBK History Checked 02/26/19 02/26/19 02/26/19 04:37 05:01 05:01 WBC 1.2 L* RBC 2.64 L Hgb 7.1 L Hct 22.7 L MCV 86.1 MCH 26.9 L MCHC 31.2 L RDW 22.7 H Plt Count 11 L* D MPV 10.3 Neut % (Auto) 63.9 Lymph % (Auto) 34.1 Ada % (Auto) 0.8 Eos % (Auto) 1.1 Baso % (Auto) 0.1 Neut # (Auto) 0.8 L Lymph # (Auto) 0.4 L Ada # (Auto) 0.0 Eos # (Auto) 0.0 Baso # (Auto) 0.0 PT INR APTT pCO2 42 pO2 56 L HCO3 15.7 L ABG pH 7.18 L* ABG Total CO2 17.0 L ABG O2 Saturation 90.8 L ABG O2 Content ABG Base Excess -11.8 L ABG Hemoglobin ABG Carboxyhemoglobin POC ABG HHb (Measured) ABG Methemoglobin ABG O2 Capacity [place] Test Yes ABG Potassium 3.7 A-a O2 Difference 605.0 Hgb O2 Saturation Glucose 51 L Lactate 8.7 H* Vent Mode A/c Mechanical Rate 23 FiO2 100.0 Tidal Volume 450 PEEP 5 Crit Value Called To Dr harish cook Crit Value Called By Rigo Crit Value Read Back Y Blood Gas Notified Time 553 Sodium 141.0 144 Potassium 3.7 Chloride 107.0 109 H Carbon Dioxide 16 L Anion Gap 23 H BUN 46 H Creatinine 2.4 H Est GFR ( Amer) 32 Est GFR (Non-Af Amer) 26 Random Glucose 53 L Lactic Acid Calcium 5.5 L* Phosphorus 4.6 H Magnesium 1.7 Total Bilirubin 0.7 AST 37 ALT 22 Alkaline Phosphatase 30 L D Total Protein 3.8 L Albumin 2.0 L Globulin 1.7 L Albumin/Globulin Ratio 1.2 Amylase Lipase Arterial Blood Potassium 3.7 Blood Type Antibody Screen BBK History Checked 02/26/19 02/26/19 02/26/19 05:01 05:01 08:17 WBC RBC Hgb Hct MCV MCH MCHC RDW Plt Count MPV Neut % (Auto) Lymph % (Auto) Ada % (Auto) Eos % (Auto) Baso % (Auto) Neut # (Auto) Lymph # (Auto) Ada # (Auto) Eos # (Auto) Baso # (Auto) PT 22.6 H INR 2.0 APTT 102.8 H pCO2 46 H pO2 48 L HCO3 17.1 L ABG pH 7.19 L* ABG Total CO2 19.0 L ABG O2 Saturation 85.5 L ABG O2 Content 9.2 L ABG Base Excess -9.9 L ABG Hemoglobin 7.6 L ABG Carboxyhemoglobin 0.4 L POC ABG HHb (Measured) 14.4 H ABG Methemoglobin 0.0 ABG O2 Capacity 10.8 L [place] Test Yes ABG Potassium A-a O2 Difference 608.0 Hgb O2 Saturation 85.2 L Glucose Lactate Vent Mode Prvc/ac Mechanical Rate 23 FiO2 100.0 Tidal Volume 450 PEEP 10 Crit Value Called To joey Abbasi md Crit Value Called By Zulma galeano Crit Value Read Back Y Blood Gas Notified Time 830 Sodium Potassium Chloride Carbon Dioxide Anion Gap BUN Creatinine Est GFR ( Amer) Est GFR (Non-Af Amer) Random Glucose Lactic Acid 9.5 H* Calcium Phosphorus Magnesium Total Bilirubin AST ALT Alkaline Phosphatase Total Protein Albumin Globulin Albumin/Globulin Ratio Amylase Lipase Arterial Blood Potassium Blood Type Antibody Screen BBK History Checked Radiology Impressions: Radiology Impressions Chest X-Ray 02/26/19 08:00 IMPRESSION: No significant change from 02/25/2019. By size basilar infiltrates and small pleural effusions. Fingerstick Blood Sugar Results: 20 Review of Systems - Review of Systems Systems not reviewed;Unavailable: Intubated Critical Care Progress Note - Ventilator Checklist Head of Bed 30 Degrees: Yes Daily Sedation Vacation: Yes Daily Assessment of Readiness to Wean: Yes Daily Spontaneous Breathing Trial: Yes PUD Prophalyxis: Yes DVT Prophylaxis: Yes Oral Care with Chlorhexidine Gluconate {CHG}: Yes - Extremities/Vascular Does the Patient have a Central Venous Catheter?: Yes Does the Patient need a Central Venous Catheter?: Yes - Nutrition Nutrition: Nutrition Category Date Time Status NPO Diet [DIET] Diets 02/25/19 Dinner Active Assessment/Plan (1) Septic shock Current Visit: Yes Status: Acute Priority: High (2) Acute respiratory failure with hypoxia Current Visit: Yes Status: Acute Priority: High (3) C. difficile colitis Current Visit: Yes Status: Acute Priority: High (4) JESUS (acute kidney injury) Current Visit: Yes Status: Acute Priority: High (5) Afib Current Visit: Yes Status: Acute Priority: High - Assessment and Plan (Free Text) Assessment: 78 years old male with past medical history of hypertension, bladder cancer, prediabetes, ulcerative colitis and CVA in 2007 Patient initially transferred from the rehab to the emergency room for severe anemia, hemoglobin noted to be 7 Found to have Rectal stricture and extensive adhesions S/P Laparoscopic hand assist diverting transverse colostomy on 02/18 Currently managed in the intensive care unit for septic shock, acute hypoxemic respiratory failure, acute kidney injury and multiorgan system failure No vent weaning done today due to hemodynamic instability Continue current management hemodynamic support Intravenous/p.o. antibiotics Bicarb drip Resume OG tube feeding Prognosis guarded Management issues was discussed and formulated with the mergers and acquisitions consultant Total critical care time 43 minutes
[2019-02-26] MEDS ORDERED: DOPamine 400mg/250ml D5W 400 MG/250 ML BAG IV ONE ×2 (18:08→18:39)
[2019-02-26] MEDS ORDERED: Sodium Bicarbonate (8.4%) 50 Meq Syringe IVP ONE ×2 (18:14)
[2019-02-26] MEDS: Sodium Bicarbonate 7.5% (0.9 MEQ/ML) 50ML INJ IV ONE ×2 (18:28→18:29)
[2019-02-26 18:35] LABS: BASO % 0.2 % (0.0-2.0); EOS % 0.8 % (0.0-4.0); LYMPH # 0.7 K/uL (1.0-4.3); LYMPH % 39.3 % (20.0-40.0); MEAN CORPUSCULAR HEMOGLOBIN 27.3 pg (27.0-31.0); MEAN CORPUSCULAR HGB CONC 29.3 g/dL (33.0-37.0); MEAN PLATELET VOLUME 9.7 fl (7.2-11.7); MONO % 0.6 % (0.0-10.0); NEUT # 1.1 K/uL (1.8-7.0); NEUT % 59.1 % (50.0-75.0); NRBC % 0.8 % (0.0-0.0); RBC 1.51 Mil/uL (4.40-5.90); RED CELL DISTRIBUTION WIDTH 22.1 % (11.5-14.5)
[2019-02-26 18:46] LABS: HEMOGLOBIN 4.1 g/dL (12.0-18.0); WHITE BLOOD COUNT 1.8 K/uL (4.8-10.8)
[2019-02-26 19:16] LABS: ALB/GLOB RATIO 1.3 (1.0-2.1); ALBUMIN 1.3 g/dL (3.5-5.0)
[2019-02-26 19:50] LABS: CALCIUM 4.8 mg/dL (8.4-10.2)
[2019-02-26 19:54] VITALS: BP 107/56; PULSE 73
--- NOTE | 2019-02-26 19:56 | CP.PCM.PRO ---
Pronouncement of Note - Clinical Findings Physical Exam: No Response Verbal/Painful Stimuli, Absent Peripheral Puls es{Carotid & Femoral}, Absent Heart & Breath Sounds, Absence of Vital Signs - Pronouncement Time Time of Pronouncement of : 19:39 Additional Comments: Patient went into cardiac arrest this evening approximately 7:17 PM. CPR was initiated. Patient received 5 amps of epinephrine, 2 amps of bicarbonate, and 1 amp of calcium gluconate with no return of pulse. - Notifications Pronouncement Notifications: Family Notified Virtual Assistant Notified: No - Autopsy Autopsy Requested: No - [place] [id number]
--- NOTE | 2019-02-26 23:26 | CP.PCM.PN ---
<Anatoliyn - Last Filed: 02/26/19 23:26> Subjective - Date & Time of Evaluation Date of Evaluation: 02/26/19 Time of Evaluation: 18:15 - Subjective Subjective: Surgery Progress Note- Dr. Rivera Surgery was called to evaluate the patient for increased abd pain. GCS7T [id number]. On 3 pressors Levo, Vaso, and Dopamine. Intubated on PRVC 450/23/100/10. Stoma having decreased output since last encounter. Malik with decreased UO, dark urine. On Abx. + C.Diff, +BCx, and PNA. Currently Pancytopenic Objective - Vital Signs/Intake and Output Vital Signs (last 24 hours): Temp Pulse Resp BP Pulse Ox 100.0 F H 73 23 107/56 L 93 L 02/26/19 16:00 02/26/19 19:00 02/26/19 19:00 02/26/19 19:00 02/26/19 13:00 - Labs Labs: 02/26/19 18:30 02/26/19 18:30 PT 22.6 Seconds (9.8-13.1) H 02/26/19 05:01 INR 2.0 02/26/19 05:01 APTT 102.8 Seconds (25.6-37.1) H 02/26/19 05:01 - Constitutional Appears: No Acute Distress, Chronically Ill - Head Exam Head Exam: ATRAUMATIC - Eye Exam Eye Exam: absent: Scleral icterus - ENT Exam ENT Exam: Mucous Membranes Moist - Respiratory Exam Respiratory Exam: NORMAL BREATHING PATTERN. absent: Accessory Muscle Use, Respiratory Distress - Cardiovascular Exam Cardiovascular Exam: Bradycardia, Irregular Rhythm. absent: Tachycardia - GI/Abdominal Exam GI & Abdominal Exam: Distended, Tenderness. absent: Firm, Guarding, Rigid Additional comments: Colostomy w/ air, however decreased output - Neurological Exam Neurological Exam: Awake - Psychiatric Exam Psychiatric exam: Normal Affect - Skin Skin Exam: Intact, Warm Assessment and Plan - Assessment and Plan (Free Text) Assessment: 78M w/ UC, concern for GI bleed found to have rectal stricture s/p Transverse blowhole colostomy POD#8. Hospital stay complicated by A.Fib w/ RVR, C.Diff, bacteremia subsequently septic shock Plan: - patient prognosis critical - on 3 pressors, likely decreased mesenteric blood flow at this time - Surgical intervention futile at this point - continued management per Critical Care team PGY2 <Jp Del Cid - Last Filed: 02/27/19 06:21> Objective - Vital Signs/Intake and Output Vital Signs (last 24 hours): Temp Pulse Resp BP Pulse Ox 100.0 F H 73 23 107/56 L 93 L 02/26/19 16:00 02/26/19 19:00 02/26/19 19:00 02/26/19 19:00 02/26/19 13:00 - Labs Labs: 02/26/19 18:30 02/26/19 18:30 PT 22.6 Seconds (9.8-13.1) H 02/26/19 05:01 INR 2.0 02/26/19 05:01 APTT 102.8 Seconds (25.6-37.1) H 02/26/19 05:01 Assessment and Plan - Assessment and Plan (Free Text) Plan: All medical record entries made by the resident were at my direction. I have reviewed the chart and agree that the record accurately reflects my personal performance of the history, physical exam, and medical decision making. Patient experienced an acute decline in clinical status over last 2 days. Noted to have increased output from colostomy and increased creatinine. C diff antigen returned positive. Patient was high risk for colostomy given comorbid medical conditions. At this point unlikely to survive any surgical intervention.
--- NOTE | 2019-02-27 09:01 | CARD ---
APPROVED REPORT Date of service: 02/26/2019 EKG Measurement Heart [id number] <Conclusion> Sinus rhythm with 1st degree AV block Nonspecific intraventricular block Possible Lateral infarct, age undetermined Abnormal ECG
== END 2019-02-26 19:39 | DRG 329 ==
LOC: H.ER 15:29 → H.ERHOLD 15:42 → H.TEL 21:18 → H.ICU/CCU 02-24 10:18
PROVIDERS: ADMIT Internal Medicine; ATTEND Internal Medicine
PROC: 30233N1 Transfusion of Nonautologous Red Blood Cells into Peripheral Vein, Percutaneous Approach (ICD-10-PCS; 2019-02-05)
PROC: 30233N1 Transfusion of Nonautologous Red Blood Cells into Peripheral Vein, Percutaneous Approach (ICD-10-PCS; 2019-02-07)
PROC: 0DBP8ZX Excision of Rectum, Via Natural or Artificial Opening Endoscopic, Diagnostic (ICD-10-PCS; 2019-02-11)
PROC: 0HQ0XZZ Repair Scalp Skin, External Approach (ICD-10-PCS; 2019-02-11)
PROC: 02HV33Z Insertion of Infusion Device into Superior Vena Cava, Percutaneous Approach (ICD-10-PCS; 2019-02-13)
PROC: B518ZZA Fluoroscopy of Superior Vena Cava, Guidance (ICD-10-PCS; 2019-02-13)
PROC: B548ZZA Ultrasonography of Superior Vena Cava, Guidance (ICD-10-PCS; 2019-02-13)
PROC: 30233N1 Transfusion of Nonautologous Red Blood Cells into Peripheral Vein, Percutaneous Approach (ICD-10-PCS; 2019-02-18)
PROC: 0D1L4Z4 Bypass Transverse Colon to Cutaneous, Percutaneous Endoscopic Approach (ICD-10-PCS; principal; 2019-02-18 13:00)
PROC: 05HN33Z Insertion of Infusion Device into Left Internal Jugular Vein, Percutaneous Approach (ICD-10-PCS; 2019-02-24)
PROC: 3E04329 Introduction of Other Anti-infective into Central Vein, Percutaneous Approach (ICD-10-PCS; 2019-02-24)
PROC: 0BH17EZ Insertion of Endotracheal Airway into Trachea, Via Natural or Artificial Opening (ICD-10-PCS; 2019-02-25)
PROC: 5A1935Z Respiratory Ventilation, Less than 24 Consecutive Hours (ICD-10-PCS; 2019-02-25)
PROC: 5A12012 Performance of Cardiac Output, Single, Manual (ICD-10-PCS; 2019-02-26)
DX: K51.511 Left sided colitis with rectal bleeding (principal); J96.01 Acute respiratory failure with hypoxia; A41.50 Gram-negative sepsis, unspecified; R65.21 Severe sepsis with septic shock; D62 Acute posthemorrhagic anemia; N17.9 Acute kidney failure, unspecified; K92.2 Gastrointestinal hemorrhage, unspecified; E87.0 Hyperosmolality and hypernatremia; I13.0 Hypertensive heart and chronic kidney disease with heart failure and stage 1 through stage 4 chronic kidney disease, or unspecified chronic kidney disease; I50.42 Chronic combined systolic (congestive) and diastolic (congestive) heart failure; D61.818 Other pancytopenia; D68.9 Coagulation defect, unspecified; E87.2 Acidosis; I47.1 Supraventricular tachycardia; A04.72 Enterocolitis due to Clostridium difficile, not specified as recurrent; K51.512 Left sided colitis with intestinal obstruction; I48.91 Unspecified atrial fibrillation; S01.01XA Laceration without foreign body of scalp, initial encounter; E11.65 Type 2 diabetes mellitus with hyperglycemia; E87.6 Hypokalemia; E86.0 Dehydration; I12.9 Hypertensive chronic kidney disease with stage 1 through stage 4 chronic kidney disease, or unspecified chronic kidney disease; N18.3 Chronic kidney disease, stage 3 (moderate); K62.4 Stenosis of anus and rectum; E11.22 Type 2 diabetes mellitus with diabetic chronic kidney disease; E83.51 Hypocalcemia; K66.0 Peritoneal adhesions (postprocedural) (postinfection); K21.0 Gastro-esophageal reflux disease with esophagitis; I49.3 Ventricular premature depolarization; R32 Unspecified urinary incontinence; W17.89XA Other fall from one level to another, initial encounter; I69.919 Unspecified symptoms and signs involving cognitive functions following unspecified cerebrovascular disease; F01.50 Vascular dementia, unspecified severity, without behavioral disturbance, psychotic disturbance, mood disturbance, and anxiety; R26.89 Other abnormalities of gait and mobility; E78.1 Pure hyperglyceridemia; E78.5 Hyperlipidemia, unspecified; E78.00 Pure hypercholesterolemia, unspecified; Z51.5 Encounter for palliative care; Y92.230 Patient room in hospital as the place of occurrence of the external cause; Z79.4 Long term (current) use of insulin; Z85.46 Personal history of malignant neoplasm of prostate; Z85.51 Personal history of malignant neoplasm of bladder; Z85.528 Personal history of other malignant neoplasm of kidney; Z90.5 Acquired absence of kidney; Z79.01 Long term (current) use of anticoagulants; Z79.84 Long term (current) use of oral hypoglycemic drugs; Z88.0 Allergy status to penicillin